=== PATIENT | male | born 1945 | race Caucasian/White ===

== ENCOUNTER 2020-06-01 | Outpatient (REF) | payer MEDICARE, OTHER, SELFPAY | END 2020-06-01 00:01 | disposition home or self-care (01) | LOC: HO.VC | PROVIDERS: Visit Provider Internal Medicine | DX: Z23 Encounter for immunization (principal) | CPT/HCPCS: 0011A ==

== ENCOUNTER 2020-06-28 | Outpatient (REF) | payer MEDICARE, OTHER, SELFPAY | END 2020-06-28 00:01 | disposition home or self-care (01) | LOC: HO.VC | PROVIDERS: Visit Provider Internal Medicine | DX: Z23 Encounter for immunization (principal) | CPT/HCPCS: 0012A ==

== ENCOUNTER 2020-06-28 09:19 | Outpatient (REF) | payer MEDICARE, OTHER, SELFPAY ==
--- NOTE | ~2020-06-28 | XR_ITS ---
EXAMINATION: XR HIP, LEFT CLINICAL INFORMATION: Pain COMPARISON: CT of the abdomen and pelvis February 2007 TECHNIQUE: Two views of the left hip. FINDINGS: Bone alignment is normal. No fracture or dislocation is seen. There is arthritis at the left hip joint with joint space narrowing and osteophyte formation. There are several small sclerotic densities project over the left iliac bone superior to the acetabulum. These appear new or increased compared to previous abdominal and pelvic CT scan February 2007 Soft tissues are unremarkable. XR/XR hip LT min 2V IMPRESSION: Arthritis. Several small nonspecific sclerotic densities in the left iliac bone superior to the acetabulum.
== END 2020-06-28 09:20 | disposition home or self-care (01) ==
LOC: HO.XRAY 09:19
PROVIDERS: PCP Internal Medicine; Visit Provider Internal Medicine
DX: M25.552 Pain in left hip (principal)
CPT/HCPCS: 73502

== ENCOUNTER 2020-08-31 10:27 | Outpatient (REF) | payer MEDICARE, OTHER, SELFPAY ==
[2020-08-31 13:08] LABS: Estimated Average Glucose 157 mg/dL; Hemoglobin A1c % 7.1 %
[2020-08-31 13:15] LABS: Alanine Aminotransferase 32 U/L (0-40); Albumin Level 4.1 g/dL (3.5-5.0); Alkaline Phosphatase 69 U/L (39-117); Anion Gap 10 (12-20); Aspartate Amino Transferase 31 U/L (5-37); Bilirubin Total 1.2 mg/dL (0.0-1.0); Blood Urea Nitrogen 22 mg/dL (9-16); Calcium 9.2 mg/dL (8.4-10.2); Carbon Dioxide 28 mmol/L (22-29); Chloride 104 mmol/L (96-108); Cholesterol 166 mg/dL; Estimated Glomerular Filt Rate > 60; Glucose Random 130 mg/dL (60-115); HDL Cholesterol 78 mg/dL; LDL Cholesterol Calculated 77 mg/dl; Potassium 4.4 mmol/L (3.3-5.1); Sodium 138 mmol/L (135-145); Total Protein 6.7 g/dL (6.5-8.0); Triglycerides 56 mg/dL
[2020-08-31 13:25] LABS: Creatinine Urine 119.95 mg/dL; Microalbum/Creatinine Ratio Ur 15.8 ug/mg cr
[2020-08-31 13:38] LABS: Free T4 (Free Thyroxine) 0.94 ng/dL (0.71-1.85); Thyroid Stimulating Hormone 0.85 uIU/mL (0.32-4.0); Vitamin D 25-OH Total 46.7 ng/mL (>30)
[2020-08-31 13:47] LABS: Erythrocyte Sedimentation Rate 9 MM/HR (0-15)
[2020-08-31 13:56] LABS: Folate 18.8 ng/mL (> or = 4.0); Vitamin B12 460 pg/mL (200-900)
== END 2020-08-31 10:28 | disposition home or self-care (01) ==
LOC: HO.10HDL 10:27
PROVIDERS: Visit Provider Internal Medicine
DX: E78.00 Pure hypercholesterolemia, unspecified (principal); K21.9 Gastro-esophageal reflux disease without esophagitis; M35.3 Polymyalgia rheumatica; E11.65 Type 2 diabetes mellitus with hyperglycemia; Z79.4 Long term (current) use of insulin
CPT/HCPCS: 36415; 80053; 80061; 82043; 82306; 82607; 82746; 83036; 84439; 84443; 85652

== ENCOUNTER 2020-11-24 10:46 | Outpatient (REF) | payer MEDICARE, OTHER, SELFPAY ==
--- NOTE | ~2020-11-24 | MM_ITS ---
EXAMINATION: BONE DENSITOMETRY CLINICAL INDICATION: Other specified disorders of bone density and structure. COMPARISON: This is the patient's baseline examination. TECHNIQUE: Using a [employer] DXA System (software version: 13.1) manufactured by [employer], dual-energy x-ray absorptiometry was performed of the lumbar spine and left hip. The images are of good technical quality. Summary results are attached. FINDINGS: AP SPINE L1-L4: BMD 1.438 g/cm2, Z-score 2.3, T-score 1.8, normal. LEFT FEMUR, NECK: BMD 0.812 g/cm2, Z-score -0.6, T-score -2.0, osteopenia. LEFT FEMUR, TOTAL: BMD 0.829 g/cm2, Z-score -1.0, T-score -1.9, osteopenia. IDENTIFIED RISK FACTORS: Height loss, secondary osteoporosis, glucocorticoids (chronic). HISTORY OF FRACTURE: None listed. MEDICATIONS: Calcium supplements or multivitamin, vitamin D. MM/XR DEXA axial skeleton IMPRESSION: 1. DIAGNOSIS: Osteopenia based on the lowest T-score value of -2.0 in the femoral neck applying World Health Organization criteria. 2. 10-YEAR FRACTURE RISK PREDICTION, FRAX: Major osteoporotic fracture (clinical spine, forearm, hip or shoulder) 12.3%. Hip fracture 4.8%. 3. Treatment Recommendations: NOF guidelines recommend consideration for treatment in postmenopausal women and men age 50 and older presenting with the following: -A hip or vertebral (clinical or morphometric) fracture. -T-score less than or equal to -2.5 at the femoral neck or spine after appropriate evaluation to exclude secondary causes. -Low bone mass at the hip or spine and a 10-year fracture probability by FRAX of greater than or equal to 3% for hip fracture or greater than or equal to 20% for major osteoporotic fracture based on the [place] adapted WHO algorithm. 4. Other Recommendations: All treatment decisions require clinical judgment and consideration of individual patient factors, including patient preferences, comorbidities, previous drug use, risk factors not captured in the FRAX model (e.g. frailty, falls, vitamin D deficiency, increased bone turnover, interval significant decline in bone density) and possible under or overestimation of fracture risk by FRAX. Additional medical evaluation for secondary cause of low bone mineral density may be appropriate. FUTURE SCAN RECOMMENDATION: People with diagnosed cases of osteoporosis or at high risk for fracture should have regular bone mineral density tests. For patients eligible for Medicare, routine testing is allowed once every 2 years. The testing frequency can be increased to one year for patients who have rapidly progressing disease, those who are receiving or discontinuing medical therapy to restore bone mass, or have additional risk factors.
== END 2020-11-24 10:47 | disposition home or self-care (01) ==
LOC: HO.MAMMO 10:46
PROVIDERS: Visit Provider Internal Medicine
DX: Z13.820 Encounter for screening for osteoporosis (principal); M85.80 Other specified disorders of bone density and structure, unspecified site; R29.890 Loss of height; E27.49 Other adrenocortical insufficiency; Z79.899 Other long term (current) drug therapy
CPT/HCPCS: 77080

== ENCOUNTER 2021-07-18 12:19 | Outpatient (REF) | payer MEDICARE, OTHER, SELFPAY ==
--- NOTE | ~2021-07-18 | XR_ITS ---
EXAMINATION: XR FINGER, RIGHT CLINICAL INFORMATION: Stiffness the right fourth digit. Pain. No history of injury. COMPARISON: None TECHNIQUE: 3 views of the right fourth finger. FINDINGS: No fracture. No dislocation. No focal bone lesion or abnormal periosteal reaction. Joint spaces are normal. No soft tissue abnormality. XR/XR finger RT min 2V IMPRESSION: Normal right fourth finger.
== END 2021-07-18 12:20 | disposition home or self-care (01) ==
LOC: HO.XRAY 12:19
PROVIDERS: PCP Internal Medicine; Visit Provider Internal Medicine
DX: M79.644 Pain in right finger(s) (principal)
CPT/HCPCS: 73140

== ENCOUNTER 2021-10-04 10:11 | Outpatient (REF) | payer MEDICARE, OTHER, SELFPAY ==
[2021-10-04 10:53] LABS: MANUAL DIFF FLAG NO
[2021-10-04 10:57] LABS: Basophils Percent Auto 0.5 % (0-2); Eosinophils Absolute Auto 0.1 X10*3/uL (0.0-0.4); Eosinophils Percent Auto 1.5 % (0-4); Hematocrit 41.8 % (42.0-52.0); Hemoglobin 13.9 g/dl (14.0-18.0); Imm Gran Abs Auto 0.02 X10*3/uL (0.00-0.03); Imm Gran Pct Auto 0.3 % (0.0-0.4); Lymphocytes Percent Auto 32.9 % (20-40); Mean Corpuscular HGB Conc 33.3 g/dl (31.0-36.0); Mean Corpuscular Hemoglobin 31.6 pg (27.0-33.0); Mean Platelet Volume 10.2 fL (9.4-12.4); Monocytes Absolute Auto 0.5 X10*3/uL (0.1-1.2); Monocytes Percent Auto 8.7 % (2-11); Neutrophils Absolute Auto 3.4 x10*3/uL (2.0-8.3); Neutrophils Percent Auto 56.1 % (45-73); Platelet Count 173 X10*3/uL (160-400); Red Cell Distribution Width 12.9 % (11.0-16.0); White Blood Count 6.1 X10*3/uL (4.8-10.8)
[2021-10-04 11:10] LABS: Alanine Aminotransferase 36 U/L (0-40); Alkaline Phosphatase 54 U/L (39-117); Anion Gap 13 (12-20); Aspartate Amino Transferase 34 U/L (5-37); Bilirubin Total 1.1 mg/dL (0.0-1.0); Blood Urea Nitrogen 30 mg/dL (9-16); Calcium 9.5 mg/dL (8.4-10.2); Carbon Dioxide 28 mmol/L (22-29); Chloride 103 mmol/L (96-108); Cholesterol 178 mg/dL; Estimated Glomerular Filt Rate > 60; Glucose Random 134 mg/dL (60-115); HDL Cholesterol 77 mg/dL; LDL Cholesterol Calculated 92 mg/dl; Potassium 4.6 mmol/L (3.3-5.1); Sodium 139 mmol/L (135-145); Total Protein 6.7 g/dL (6.5-8.0); Triglycerides 45 mg/dL
[2021-10-04 11:15] LABS: Estimated Average Glucose 171 mg/dL; Hemoglobin A1c % 7.6 %
[2021-10-04 11:26] LABS: Creatinine Urine 131.17 mg/dL; Microalbum/Creatinine Ratio Ur 11.4 ug/mg cr
[2021-10-04 11:31] LABS: B Type Natriuretic Peptide 33 pg/mL (<100)
[2021-10-04 11:32] LABS: Free T4 (Free Thyroxine) 0.88 ng/dL (0.71-1.85); Thyroid Stimulating Hormone 0.84 uIU/mL (0.32-4.0)
[2021-10-04 11:42] LABS: Folate > 20.0 ng/mL (> or = 4.0); Vitamin B12 525 pg/mL (200-900)
[2021-10-04 11:49] LABS: Erythrocyte Sedimentation Rate 10 MM/HR (0-15)
== END 2021-10-04 10:12 | disposition home or self-care (01) ==
LOC: HO.10HDL 10:11
PROVIDERS: Visit Provider Internal Medicine
DX: E11.65 Type 2 diabetes mellitus with hyperglycemia (principal); I10 Essential (primary) hypertension; E78.00 Pure hypercholesterolemia, unspecified; M35.3 Polymyalgia rheumatica; Z79.4 Long term (current) use of insulin; M81.0 Age-related osteoporosis without current pathological fracture
CPT/HCPCS: 36415; 80053; 80061; 82043; 82306; 82607; 82746; 83036; 83880; 84439; 84443; 85025; 85652

== ENCOUNTER 2022-10-10 09:59 | Outpatient (REF) | payer MEDICARE, OTHER, SELFPAY ==
[2022-10-10 13:16] LABS: MANUAL DIFF FLAG NO
[2022-10-10 13:29] LABS: Basophils Percent Auto 0.5 % (0-2); Eosinophils Absolute Auto 0.1 X10*3/uL (0.0-0.4); Eosinophils Percent Auto 1.4 % (0-4); Hematocrit 42.1 % (42.0-52.0); Hemoglobin 13.9 g/dl (14.0-18.0); Imm Gran Abs Auto 0.03 X10*3/uL (0.00-0.03); Imm Gran Pct Auto 0.5 % (0.0-0.4); Lymphocytes Percent Auto 30.7 % (20-40); Mean Corpuscular Hemoglobin 31.3 pg (27.0-33.0); Mean Corpuscular Volume 94.8 fL (80.0-98.0); Mean Platelet Volume 10.3 fL (9.4-12.4); Monocytes Absolute Auto 0.5 X10*3/uL (0.1-1.2); Monocytes Percent Auto 8.4 % (2-11); Neutrophils Absolute Auto 3.8 x10*3/uL (2.0-8.3); Neutrophils Percent Auto 58.5 % (45-73); Platelet Count 170 X10*3/uL (160-400); Red Blood Count 4.44 X10*6/uL (4.60-5.80); Red Cell Distribution Width 12.4 % (11.0-16.0); White Blood Count 6.5 X10*3/uL (4.8-10.8)
[2022-10-10 13:33] LABS: Estimated Average Glucose 163 mg/dL; Hemoglobin A1c % 7.3 %
[2022-10-10 13:44] LABS: Alanine Aminotransferase 35 U/L (0-40); Albumin Level 4.1 g/dL (3.5-5.0); Alkaline Phosphatase 55 U/L (39-117); Anion Gap 11 (12-20); Aspartate Amino Transferase 33 U/L (5-37); Bilirubin Total 1.1 mg/dL (0.0-1.0); Blood Urea Nitrogen 24 mg/dL (9-16); C Reactive Protein < 0.10 mg/dL (< or = 0.50); Calcium 10.2 mg/dL (8.4-10.2); Carbon Dioxide 28 mmol/L (22-29); Chloride 102 mmol/L (96-108); Cholesterol 177 mg/dL; Estimated Glomerular Filt Rate > 60; Glucose Random 158 mg/dL (60-115); HDL Cholesterol 72 mg/dL; LDL Cholesterol Calculated 92 mg/dl; Potassium 4.8 mmol/L (3.3-5.1); Sodium 136 mmol/L (135-145); Total Protein 7.3 g/dL (6.5-8.0); Triglycerides 66 mg/dL
[2022-10-10 13:53] LABS: Creatinine Urine 76.59 mg/dL; Microalbum/Creatinine Ratio Ur 7.8 ug/mg cr
[2022-10-10 13:58] LABS: Free T4 (Free Thyroxine) 0.96 ng/dL (0.71-1.85); Thyroid Stimulating Hormone 1.18 uIU/mL (0.32-4.0); Vitamin D 25-OH Total 66.5 ng/mL (>30)
[2022-10-10 14:09] LABS: Folate 17.1 ng/mL (> or = 4.0); Vitamin B12 538 pg/mL (200-900)
[2022-10-10 14:14] LABS: Erythrocyte Sedimentation Rate 10 MM/HR (0-15)
== END 2022-10-10 10:00 | disposition home or self-care (01) ==
LOC: HO.10HDL 09:59
PROVIDERS: Visit Provider Internal Medicine
DX: M35.3 Polymyalgia rheumatica (principal); E11.65 Type 2 diabetes mellitus with hyperglycemia; E78.00 Pure hypercholesterolemia, unspecified; M85.80 Other specified disorders of bone density and structure, unspecified site; Z79.4 Long term (current) use of insulin
CPT/HCPCS: 36415; 80053; 80061; 82043; 82306; 82607; 82746; 83036; 84439; 84443; 85025; 85652; 86140

== ENCOUNTER 2022-11-07 10:51 | Outpatient (AMB) | payer MEDICARE, OTHER, SELFPAY ==
[2022-11-07 10:53] VITALS: BP 130/72; PULSE 84; O2SAT 97; BMI 23.6
--- NOTE | 2022-11-07 10:53 | A.OFFPC_ITS ---
Vital Signs 11/07/22 10:53 Height 6 ft 1 in Weight 179 lb BMI 23.6 BP 130/72 Blood Pressure Location Lt brachial Position Sitting Pulse 84 Pulse Source Pulse Oximeter Temp Source Skin Pulse Oximetry (%) 97 Oxygen Delivery Method Room Air Intake Visit Reasons: Ear Irrigation Dental Floss Packer Required: No Allergies meloxicam Allergy (Unknown, Verified 11/07/22 11:14) Unknown simvastatin Allergy (Unknown, Verified 11/07/22 11:14) Unknown Medication List - Last Reconciled 11/07/22 by TANK Sims amlodipine 10 mg PO DAILY atorvastatin 20 mg PO DAILY cholecalciferol (vitamin D3) 25 mcg PO DAILY hydrochlorothiazide 12.5 mg PO DAILY insulin aspart U-100 (Novolog FlexPen U-100 Insulin aspart) 5 units subcut TID insulin degludec (Tresiba FlexTouch U-100 insulin) 15 units subcut DAILY lisinopril 40 mg PO DAILY omeprazole 20 mg PO DAILY prednisone 2 mg (2 x 1 mg) PO DAILY sildenafil 100 mg PO DAILY PRN Tobacco use date assessed: 11/07/22 Fall risk assessment: No Falls in past year Last assessed Fall Risk: 11/07/22 HPI Ear Irrigation HPI Details Patient is a 77-year-old male who presents today for bilateral ear irrigation. Patient of Dr. Barrios. Medical history significant for hypertension, GERD, hypercholesterolemia, diabetes type 2 among others. Patient reports that he did use Debrox in both of his ears for 4 days prior to coming in today. He reports in the past he did go to ENT on yearly basis for cerumen removal. Reports chronic ringing sensation his right ear. Denies ears pain. [facility] Medical History Carpal tunnel syndrome Diabetic neuropathy Erectile dysfunction GERD (gastroesophageal reflux disease) Hypercholesterolemia Hypertension Osteopenia Polymyalgia rheumatica Thrombocytopenia Type 2 diabetes mellitus with hyperglycemia Surgical History History of carpal tunnel release Family History Father Hypertension CVD (cardiovascular disease) Mother Cancer Social History Housing: House Alcohol intake: current Alcohol intake frequency: a few times a week Alcohol type: beer and wine Patient Tobacco Use Status: Former Tobacco user Tobacco use type: Cigarette Years Smoked: quit 2005 e-Cigarette/Vaping Use: Never Used Second Hand Smoke Exposure: No service: No Current occupational status: retired Cognitive needs: No Hearing needs: No Vision needs: Yes Questionnaire Thrive Questionnaire Date Thrive assessed: 07/06/22 AUDIT C Alcohol Use Questionnaire (AUDIT-C) 1. How often do you have a drink containing alcohol?: 4 or more times a week 2. How many drinks containing alcohol do you have on a typical day when you are drinking?: 1 or 2 3. How often do you have six or more drinks on one occasion?: Never Total Score: 4 Score Reviewed/Action Taken: No GWYN-7 AMB Questionnaire GWYN-7 Date WGYN - 7 assessed: 07/06/22 Source: Developed by Drs. Sunday Delgado, Marilyn Kennedy, Marco Caldwell and colleagues, with an educational wendie from [employer]. Review of Systems Const Denies body aches, Denies chills, Denies fever(s) and Denies headache(s) ENT Details: Cerumen in ears Denies dizziness, Denies otalgia, Denies headache(s), Denies nasal discharge, Denies sinus pain and Denies sore throat Card Denies chest pain, Denies lightheadedness and Denies dyspnea Resp Denies cough and Denies dyspnea GI Denies abdominal pain Denies dysuria Musc Denies myalgias Skin/Breast Denies rash Neuro Denies dizziness and Denies headache(s) Physical exam (Primary Care) Vital Signs: Last Vital Signs Pulse 84 11/07/22 10:53 BP 130/72 11/07/22 10:53 Pulse Ox 97 11/07/22 10:53 Oxygen Delivery Method Room Air 11/07/22 10:53 BMI result Body Mass Index 23.6 Tobacco/Smoking Status: Tobacco use Status Tobacco use date assessed 11/07/22 11/07/22 10:54 Patient Tobacco Use Status Former Tobacco user 11/07/22 10:54 Tobacco use type Cigarette 11/07/22 10:54 e-Cigarette/Vaping Use Never Used 11/07/22 10:54 Thrive Assessment: Date of Thrive Assessment Date Thrive assessed 07/06/22 11/07/22 10:54 Const General: cooperative and no acute distress Orientation/consciousness: patient oriented x3 HENWY Other: Bilateral TM obstructed by cerumen Status post left ear lavage left TM normal Unsuccessful ear lavage right ear, right TM obstructed by cerumen, unable to visualize Head: Yes normocephalic and Yes atraumatic Throat: Yes posterior oropharynx normal Eyes General: appearance normal, both eyes and all related structures Neck Neck: Yes normal visual inspection and Yes full ROM Resp Effort & Inspection: normal respiratory effort and able to speak in complete sentences Auscultation: clear to auscultation bilaterally, no crackles, no rales, no rhonchi and no wheezes Cardio Rate: regular rate Rhythm: regular rhythm Heart sounds: S1 normal heart sound present and S2 normal heart sound present GI Auscultation: normal bowel sounds Skin General skin exam: no rashes or lesions noted Neuro General: patient oriented x3 Gait exam (Neuro): Normal gait present Extrem General: Yes full ROM Office Procedures Cerumen Removal From which ear canal was the cerumen removed: bilateral Removal: irrigation and otoscope w/curette Notes: patient tolerated procedure well, no complications and ear canal clear (left ) 22072-[id number] Irrigation/Lavage Assessment and Plan Assessment & Plan (1) Impacted cerumen, right ear: Code(s): H61.21 - Impacted cerumen, right ear Plan: Unsuccessful ear lavage right ear, right TM obstructed by cerumen, unable to visualize Will refer to ENT for an evaluation and treatment Patient agreed with the plan Plan Left ear canal cerumen removed, patient tolerated well, left TM normal Orders: Referrals Ear/Nose/Throat Referral H61.21 - Impacted cerumen, right ear Coding Level of Care Code Est Pt Level 2 (37457) Diagnoses Impacted cerumen, right ear H61.21 CPT Codes Office Procedure - CPT: 75694-Mvb Irrigation/Lavage ([id number])
== END 2022-11-07 11:56 | disposition home or self-care (01) ==
PROVIDERS: PCP Internal Medicine; Visit Provider Nurse Practitioner Family
DX: H61.22 Impacted cerumen, left ear (principal); H61.23 Impacted cerumen, bilateral
CPT/HCPCS: 69210; 99212

== ENCOUNTER 2023-01-29 11:33 | Outpatient (AMB) | payer MEDICARE, OTHER, SELFPAY ==
[2023-01-29 12:04] VITALS: BP 134/70; PULSE 67; O2SAT 97; BMI 23.6
--- NOTE | 2023-01-29 12:04 | A.OFFPC_ITS ---
Vital Signs 01/29/23 12:04 Height 6 ft 1 in Weight 179 lb BMI 23.6 BP 134/70 Blood Pressure Location Lt brachial Position Sitting Pulse 67 Pulse Source Pulse Oximeter Pulse Oximetry (%) 97 Oxygen Delivery Method Room Air Intake Visit Reasons: 3 Month F/UP Allergies meloxicam Allergy (Unknown, Verified 01/29/23 12:05) Unknown simvastatin Allergy (Unknown, Verified 01/29/23 12:05) Unknown Tobacco use date assessed: 11/07/22 Fall risk assessment: No Falls in past year Last assessed Fall Risk: 01/29/23 Dental Screening Dental Screen Date: 01/29/23 Did you have a dental visit in the last 12 months?: Yes Did you have a dental problem in the last 6 months where you did not have access to dental care?: No Was dental information given to patient?: Patient has dentist HPI 3 Month F/UP HPI Details 77-year-old male with diabetes mellitus controlled hypercholesterolemia GERD hypertension polymyalgia rheumatica coming in for follow-up. Last seen in September 2022. Patient's colonoscopy is up-to-date patient follows up with endocrinology has the Dexcom blood sugars on NovoLog and Tresiba. fell from the cart recently and states balance issues when closing eye- plan to change bathroom [facility] Medical History Carpal tunnel syndrome Diabetic neuropathy Erectile dysfunction GERD (gastroesophageal reflux disease) Hypercholesterolemia Hypertension Osteopenia Polymyalgia rheumatica Thrombocytopenia Type 2 diabetes mellitus with hyperglycemia Surgical History History of carpal tunnel release Family History Father Hypertension CVD (cardiovascular disease) Mother Cancer Social History Housing: House Alcohol intake: current Alcohol intake frequency: a few times a week Alcohol type: beer and wine Patient Tobacco Use Status: Former Tobacco user Tobacco use type: Cigarette Years Smoked: quit 2005 e-Cigarette/Vaping Use: Never Used Second Hand Smoke Exposure: No service: No Current occupational status: retired Cognitive needs: No Hearing needs: No Vision needs: Yes Questionnaire PHQ-9 Over the last 2 weeks, how often have you been bothered by any of the following problems? 1. Little interest or pleasure in doing things: not at all 2. Feeling down, depressed, or hopeless: not at all 3. Trouble falling or staying asleep, or sleeping too much: several days 4. Feeling tired or having little energy: not at all 5. Poor appetite or overeating: several days 6. Feeling bad about yourself - or that you are a failure or have let yourself or your family down: not at all 7. Trouble concentrating on things, such as reading the newspaper or watching television: not at all 8. Moving or speaking so slowly that other people could have noticed. Or the opposite - being so fidgety or restless that you have been moving around a lot more than usual: not at all 9. Thoughts that you would be better off or of hurting yourself in some way: not at all Total score: 2 Source: Developed by Drs. Sunday Delgado, Marilyn Kennedy, Marco Caldwell and colleagues, with an educational wendie from [employer]. Thrive Questionnaire Date Thrive assessed: 07/06/22 AUDIT C Alcohol Use Questionnaire (AUDIT-C) 1. How often do you have a drink containing alcohol?: 4 or more times a week 2. How many drinks containing alcohol do you have on a typical day when you are drinking?: 1 or 2 3. How often do you have six or more drinks on one occasion?: Never Total Score: 4 Score Reviewed/Action Taken: No GWYN-7 AMB Questionnaire GWYN-7 Date GWYN - 7 assessed: 07/06/22 Source: Developed by Drs. Sunday Delgado, Marilyn Kennedy, Marco Caldwell and colleagues, with an educational wendie from [employer]. Physical exam (Primary Care) Vital Signs: Last Vital Signs Pulse 67 01/29/23 12:04 BP 134/70 01/29/23 12:04 Pulse Ox 97 01/29/23 12:04 Oxygen Delivery Method Room Air 01/29/23 12:04 BMI result Body Mass Index 23.6 Tobacco/Smoking Status: Tobacco use Status Tobacco use date assessed 11/07/22 01/29/23 12:07 Patient Tobacco Use Status Former Tobacco user 01/29/23 12:07 Tobacco use type Cigarette 01/29/23 12:07 e-Cigarette/Vaping Use Never Used 01/29/23 12:07 PHQ-9: PHQ-9 Score PHQ-9: Total score 2 01/29/23 12:20 Thrive Assessment: Date of Thrive Assessment Date Thrive assessed 07/06/22 01/29/23 12:07 Const General: alert; No acute distress Eyes Conjunctivae: conjunctivae normal Resp Auscultation: clear to auscultation bilaterally Cardio Rate: regular rate Rhythm: regular rhythm GI Inspection: Yes normal to inspection Extrem General: Yes normal to inspection and No edema Office Procedures Flu Questionnaire Does the patient have a severe egg allergy?: No Does the patient have severe life threatening allergies?: No Does the patient have a fever or illness today?: No Has the patient ever had Guillain-[place] Syndrome?: No Has the patient ever had any past reaction to a flu shot?: No Results AMB Hemoglobin A1c AMB Hemoglobin A1c 7.5 % Last Edit by Adri Garcia CMA on 01/29/23 12 :28 Immunizations flu vacc [id number] 6mos up(PF) 60 mcg(15 mcgx4)/0.5 mL IM syringe Performing Provider: Radha Barrios MD Performing Location: [facility] Administered by: Adri Garcia CMA on 01/29/23 12:20 Dose Route Admin Location Dispensed Lot Number Expiration Date NDC Flask Maker 0.5 mL IM Left Deltoid 0.5 mL [id number] 10/27/23 [id number] [employer] VIS Given Date VIS Provided VIS Publication Date 01/29/23 Single Vaccine 20 Eligibility Eligibility Date Funding Source Not [facility] Eligible 01/29/23 Private Assessment and Plan Assessment & Plan (1) Type 2 diabetes mellitus with hyperglycemia: Comment: [facility] Dr. Zarco 07/2021 Code(s): E11.65 - Type 2 diabetes mellitus with hyperglycemia Qualifiers: Diabetes mellitus mcfp insulin use: with mcfp use Qualified Code(s): E11.65 - Type 2 diabetes mellitus with hyperglycemia; Z79.4 - technician terminal and repeater (current) use of insulin Plan: Decrease the amount of carbohydrate intake, pasta, bread, rice and potatoes are all sugar and that is aside from all the sweet stuff, remember that fruits are good but they are Sweet also. Hemoglobin A1c goal of less than 7.0. Patient sees Endocrinology on Tresiba as well as short acting insulin but does have prednisone for the polymyalgia (2) Hypercholesterolemia: Code(s): E78.00 - Pure hypercholesterolemia, unspecified Plan: Avoid fried foods, chicken skin, eggs, butter margarine, pastries and meat. Be it pork or beef they have a lot of cholesterol LDL goal of less than 100 and triglyceride of less than 150 patient is on atorvastatin 20 mg once a day (3) GERD (gastroesophageal reflux disease): Code(s): K21.9 - Gastro-esophageal reflux disease without esophagitis Qualifiers: Esophagitis presence: without esophagitis Qualified Code(s): K21.9 - Gastro-esophageal reflux disease without esophagitis Plan: Avoid the foods that causes that usually spicy foods, tomato products, juices, coffee, soda and foods that your sensitive to. After eating do not lie down, allow 3-4 hours before in lie down. And keep the head of bed above 30 degrees to avoid the acid from going up. (4) Hypertension: Code(s): I10 - Essential (primary) hypertension Qualifiers: Hypertension type: essential hypertension Qualified Code(s): I10 - Essential (primary) hypertension Plan: Continue with blood pressure medication. Decrease salt intake and exercise patient on amlodipine 10 mg once a day hydrochlorothiazide 12.5 mg once a day and lisinopril 40 mg once a day (5) Polymyalgia rheumatica: Comment: 10/2010 Code(s): M35.3 - Polymyalgia rheumatica Plan: On prednisone 2 mg once a day Orders: Orders AMB Hemoglobin A1c Today Z13.9 - Encounter for screening, unspecified Influenza [id number] Immunization Today Z23 - Encounter for immunization Medications: Refilled sildenafil administer 30 minutes to 4 hours before activity 100 mg PO DAILY PRN 30 tabs 3RF sexual activity N52.9 - Male erectile dysfunction, unspecified Coding Level of Care Code Est Pt Level 4 (70272) Diagnoses Type 2 diabetes mellitus with hyperglycemia, with long-term current use of insulin E11.65; Z79.4 Diabetes mellitus termite control servicer insulin use: with mcfp use Hypercholesterolemia E78.00 Gastroesophageal reflux disease without esophagitis K21.9 Esophagitis presence: without esophagitis Essential hypertension I10 Hypertension type: essential hypertension Polymyalgia rheumatica M35.3
== END 2023-01-29 12:37 | disposition home or self-care (01) ==
PROVIDERS: PCP Internal Medicine; Visit Provider Internal Medicine
DX: E11.65 Type 2 diabetes mellitus with hyperglycemia (principal); Z79.4 Long term (current) use of insulin; M35.3 Polymyalgia rheumatica; Z23 Encounter for immunization; E78.00 Pure hypercholesterolemia, unspecified; K21.9 Gastro-esophageal reflux disease without esophagitis; I10 Essential (primary) hypertension
CPT/HCPCS: 83036; 90471; 90686; 99214

== ENCOUNTER 2023-05-16 11:47 | Outpatient (AMB) | payer MEDICARE, OTHER, MEDICAID, SELFPAY ==
[2023-05-16 11:50] VITALS: BP 142/68; PULSE 79; O2SAT 98; BMI 24.7
--- NOTE | 2023-05-16 11:50 | A.OFFPC_ITS ---
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 Required: No Allergies meloxicam Allergy (Unknown, Verified 05/16/23 11:50) Unknown simvastatin Allergy (Unknown, Verified 05/16/23 11:50) Unknown Medication List - Last Reconciled 05/16/23 by Radha Barrios MD amlodipine 10 mg PO DAILY atorvastatin 20 mg PO DAILY cholecalciferol (vitamin D3) 25 mcg PO DAILY hydrochlorothiazide 12.5 mg PO DAILY insulin aspart U-100 (Novolog FlexPen U-100 Insulin aspart) 5 units subcut TID insulin degludec (Tresiba FlexTouch U-100 insulin) 15 units subcut DAILY lisinopril 40 mg PO DAILY omeprazole 20 mg PO DAILY prednisone 2 mg (2 x 1 mg) PO DAILY tadalafil 10 mg PO Q OTHER DAY PRN Tobacco use date assessed: 05/16/23 Dental Screening Dental Screen Date: 05/16/23 Did you have a dental visit in the last 12 months?: Yes Did you have a dental problem in the last 6 months where you did not have access to dental care?: No Was dental information given to patient?: Patient has dentist HPI DM HPI Details 77-year-old male with history of diabete s mellitus hypercholesterolemia GERD hypertension polymyalgia rheumatica last seen in January 2023. Patient follows up with endocrinology PMR diagnosis on prednisone. Uses continuous glucose monitor sees Dr. Delgado concern about hypoglycemia advised decreasing Tresiba to prevent hypoglycemia. [facility]LY [facility], [facility] Medical History Carpal tunnel syndrome Diabetic neuropathy Erectile dysfunction GERD (gastroesophageal reflux disease) Hypercholesterolemia Hypertension Osteopenia Polymyalgia rheumatica Thrombocytopenia Type 2 diabetes mellitus with hyperglycemia Surgical History History of carpal tunnel release Family History Father Hypertension CVD (cardiovascular disease) Mother Cancer Social History Housing: House Alcohol intake: current Alcohol intake frequency: a few times a week Alcohol type: beer and wine Patient Tobacco Use Status: Former Tobacco user Tobacco use type: Cigarette Years Smoked: quit 2005 e-Cigarette/Vaping Use: Never Used Second Hand Smoke Exposure: No service: No Current occupational status: retired Cognitive needs: No Hearing needs: No Vision needs: Yes Questionnaire Thrive Questionnaire Date Thrive assessed: 07/06/22 AUDIT C Alcohol Use Questionnaire (AUDIT-C) 1. How often do you have a drink containing alcohol?: 4 or more times a week 2. How many drinks containing alcohol do you have on a typical day when you are drinking?: 1 or 2 3. How often do you have six or more drinks on one occasion?: Never Total Score: 4 Score Reviewed/Action Taken: No GWYN-7 AMB Questionnaire GWYN-7 Date GWYN - 7 assessed: 05/16/23 Source: Developed by Drs. Sunday Delgado, Marilyn Kennedy, Marco Caldwell and colleagues, with an educational wendie from [employer]. Physical exam (Primary Care) Vital Signs: Last Vital Signs Pulse 79 05/16/23 11:50 BP 142/68 H 05/16/23 11:50 Pulse Ox 98 05/16/23 11:50 Oxygen Delivery Method Room Air 05/16/23 11:50 BMI result Body Mass Index 24.7 Tobacco/Smoking Status: Tobacco use Status Tobacco use date assessed 05/16/23 05/16/23 11:51 Patient Tobacco Use Status Former Tobacco user 05/16/23 11:51 Tobacco use type Cigarette 05/16/23 11:51 e-Cigarette/Vaping Use Never Used 05/16/23 11:51 Thrive Assessment: Date of Thrive Assessment Date Thrive assessed 07/06/22 05/16/23 11:51 Const General: alert; No acute distress Eyes Conjunctivae: conjunctivae normal Resp Auscultation: clear to auscultation bilaterally Cardio Rate: regular rate Rhythm: regular rhythm GI Inspection: Yes normal to inspection Extrem General: Yes normal to inspection and No edema Results AMB Hemoglobin A1c AMB Hemoglobin A1c 8.1 % Last Edit by ISMAEL Burnett on 05/16/23 12:05 Results Reviewed Results Reviewed: Laboratory Last Values Hgb A1c (Clinic) 8.1 % (4.0-6.0) H 05/16/23 11:52 Assessment and Plan Assessment & Plan (1) Type 2 diabetes mellitus with hyperglycemia: Comment: [facility] Dr. Zarco 07/2021 Code(s): E11.65 - Type 2 diabetes mellitus with hyperglycemia Qualifiers: Diabetes mellitus halfway insulin use: with halfway use Qualified Code(s): E11.65 - Type 2 diabetes mellitus with hyperglycemia; Z79.4 - roasterman (current) use of insulin Plan: Decrease the amount of carbohydrate intake, pasta, bread, rice and potatoes are all sugar and that is aside from all the sweet stuff, remember that fruits are good but they are Sweet also. Hemoglobin A1c goal of less than 7.0. Patient does see endocrinology and because of the hypoglycemia episodes advised to decrease insulin dose. Aware of indiscriminate eating. knows to change (2) Hypertension: Code(s): I10 - Essential (primary) hypertension Qualifiers: Hypertension type: essential hypertension Qualified Code(s): I10 - Essential (primary) hypertension Plan: Continue with blood pressure medication. Decrease salt intake and exercise takes lisinopril amlodipine and hydrochlorothiazide. elevated this time and would like to loose weight first (3) GERD (gastroesophageal reflux disease): Code(s): K21.9 - Gastro-esophageal reflux disease without esophagitis Qualifiers: Esophagitis presence: without esophagitis Qualified Code(s): K21.9 - Gastro-esophageal reflux disease without esophagitis Plan: Avoid the foods that causes that usually spicy foods, tomato products, juices, coffee, soda and foods that your sensitive to. After eating do not lie down, allow 3-4 hours before in lie down. And keep the head of bed above 30 degrees to avoid the acid from going up. (4) Hypercholesterolemia: Code(s): E78.00 - Pure hypercholesterolemia, unspecified Plan: Avoid fried foods, chicken skin, eggs, butter margarine, pastries and meat. Be it pork or beef they have a lot of cholesterol September 2022 last blood work LDL goal of less than 100 and triglyceride of less than 150 patient takes atorvastatin (5) Polymyalgia rheumatica: Comment: 10/2010 Code(s): M35.3 - Polymyalgia rheumatica Plan: Patient on steroids. (6) Constipation: Code(s): K59.00 - Constipation, unspecified Plan: Three rules for constipation 1. Diet need to have a high fiber diet less of meat 2. Increase oral fluids 3. Exercise discussed about Citrucel or psyllium to help with bowel movement Orders: Orders AMB Hemoglobin A1c Today E11.65 - Type 2 diabetes mellitus with hyperglycemia Coding Level of Care Code Est Pt Level 4 (74344) Diagnoses Type 2 diabetes mellitus with hyperglycemia, with long-term current use of insulin E11.65; Z79.4 Diabetes mellitus halfway insulin use: with roasterman use Essential hypertension I10 Hypertension type: essential hypertension Gastroesophageal reflux disease without esophagitis K21.9 Esophagitis presence: without esophagitis Hypercholesterolemia E78.00 Polymyalgia rheumatica M35.3 Constipation K59.00
== END 2023-05-16 12:30 | disposition home or self-care (01) ==
PROVIDERS: PCP Internal Medicine; Visit Provider Internal Medicine
DX: E11.65 Type 2 diabetes mellitus with hyperglycemia (principal); Z79.4 Long term (current) use of insulin; M35.3 Polymyalgia rheumatica; I10 Essential (primary) hypertension; K21.9 Gastro-esophageal reflux disease without esophagitis; E78.00 Pure hypercholesterolemia, unspecified; K59.00 Constipation, unspecified
CPT/HCPCS: 83036; 99214

== ENCOUNTER 2023-08-27 09:53 | Outpatient (AMB) | payer MEDICARE, OTHER, MEDICAID, SELFPAY ==
[2023-08-27 09:56] VITALS: BP 132/68; PULSE 68; O2SAT 98; BMI 24.1
--- NOTE | 2023-08-27 09:56 | A.OFFPC_ITS ---
Vital Signs 08/27/23 09:56 Height 6 ft 1 in Weight 83.007 kg BMI 24.1 BP 132/68 Blood Pressure Location Lt brachial Position Standing Pulse 68 Pulse Source Pulse Oximeter Pulse Oximetry (%) 98 Oxygen Delivery Method Room Air Intake Visit Reasons: 3 month f/u Allergies meloxicam Allergy (Unknown, Verified 08/27/23 09:56) Unknown simvastatin Allergy (Unknown, Verified 08/27/23 09:56) Unknown Medication List - Last Reconciled 08/27/23 by Radha Barrios MD amlodipine 10 mg PO DAILY atorvastatin 20 mg PO DAILY cholecalciferol (vitamin D3) 25 mcg PO DAILY hydrochlorothiazide 12.5 mg PO DAILY insulin aspart U-100 (Novolog FlexPen U-100 Insulin aspart) 5 units subcut TID insulin degludec (Tresiba FlexTouch U-100 insulin) 15 units subcut DAILY insulin lispro (Admelog SoloStar U-100 Insulin lispro) 1 sliding scale dose subcut USEASDIRECTD lisinopril 40 mg PO DAILY omeprazole 20 mg PO DAILY prednisone 2 mg (2 x 1 mg) PO DAILY tadalafil 10 mg PO Q OTHER DAY PRN Tobacco use date assessed: 05/16/23 Fall risk assessment: 1 Fall in past year Last assessed Fall Risk: 08/27/23 Dental Screening Dental Screen Date: 05/16/23 HPI 3 month f/u HPI Details 77-year-old male with diabetes mellitus hypertension GERD h ypercholesterolemia polymyalgia rheumatica coming in for follow-up. Last seen in April 2023. Patient is colonoscopy last done in December 2018 in no more. Patient does follow-up with endocrinology and was last seen in July 2023 patient is not ready to commit to the pump although has been advised. [facility] Medical History Carpal tunnel syndrome Diabetic neuropathy Erectile dysfunction GERD (gastroesophageal reflux disease) Hypercholesterolemia Hypertension Osteopenia Polymyalgia rheumatica Thrombocytopenia Type 2 diabetes mellitus with hyperglycemia Surgical History History of carpal tunnel release Family History Father Hypertension CVD (cardiovascular disease) Mother Cancer Social History Housing: House Alcohol intake: current Alcohol intake frequency: a few times a week Alcohol type: beer and wine Patient Tobacco Use Status: Former Tobacco user Tobacco use type: Cigarette Years Smoked: quit 2005 e-Cigarette/Vaping Use: Never Used Second Hand Smoke Exposure: No service: No Current occupational status: retired Cognitive needs: No Hearing needs: No Vision needs: Yes Questionnaire PHQ-9 Over the last 2 weeks, how often have you been bothered by any of the following problems? 1. Little interest or pleasure in doing things: not at all 2. Feeling down, depressed, or hopeless: not at all 3. Trouble falling or staying asleep, or sleeping too much: several days 4. Feeling tired or having little energy: not at all 5. Poor appetite or overeating: several days 6. Feeling bad about yourself - or that you are a failure or have let yourself or your family down: not at all 7. Trouble concentrating on things, such as reading the newspaper or watching television: not at all 8. Moving or speaking so slowly that other people could have noticed. Or the opposite - being so fidgety or restless that you have been moving around a lot more than usual: not at all 9. Thoughts that you would be better off or of hurting yourself in some way: not at all Total score: 2 Source: Developed by Drs. Sunday Delgado, Marilyn Kennedy, Marco Caldwell and colleagues, with an educational wendie from [employer]. Thrive Questionnaire Date Thrive assessed: 08/27/23 I am a: Patient What is your living situation today?: I have a steady place to live Within the past 12 months, did the food you bought not last and you didn't have the money to get more?: Never true Within the past 12 months, did you worry whether your food would run out before you got money to buy more?: Never true Do you have trouble paying for medicines?: No Do you have trouble getting transportation to medical appointments?: No Do you have trouble paying your heating and electricity bill?: No Do you have trouble taking care of your child, family member or friend?: No Do you have trouble with day-to-day activities such as bathing, preparing meals, shopping, managing finances, etc.?: No Are you currently unemployed and looking for a job?: No Are you interested in more education?: No Currently or been in a relationship where the following occur: no concerns reported THRIVE Score: 0 AUDIT C Alcohol Use Questionnaire (AUDIT-C) 1. How often do you have a drink containing alcohol?: 4 or more times a week 2. How many drinks containing alcohol do you have on a typical day when you are drinking?: 1 or 2 3. How often do you have six or more drinks on one occasion?: Never Total Score: 4 Score Reviewed/Action Taken: No GWYN-7 AMB Questionnaire GWYN-7 Date GWYN - 7 assessed: 05/16/23 Source: Developed by Drs. Sunday Delgado, Marilyn Kennedy, Marco Caldwell and colleagues, with an educational wendie from [employer]. Physical exam (Primary Care) Vital Signs: Last Vital Signs Pulse 68 08/27/23 09:56 BP 132/68 08/27/23 09:56 Pulse Ox 98 08/27/23 09:56 Oxygen Delivery Method Room Air 08/27/23 09:56 BMI result Body Mass Index 24.1 Tobacco/Smoking Status: Tobacco use Status Tobacco use date assessed 05/16/23 08/27/23 09:57 Patient Tobacco Use Status Former Tobacco user 08/27/23 09:57 Tobacco use type Cigarette 08/27/23 09:57 e-Cigarette/Vaping Use Never Used 08/27/23 09:57 PHQ-9: PHQ-9 Score PHQ-9: Total score 2 08/27/23 10:37 Thrive Assessment: Date of Thrive Assessment Date Thrive assessed 08/27/23 08/27/23 09:57 Currently or been in a relationship where the following occur: no concerns reported Const General: alert; No acute distress Eyes Conjunctivae: conjunctivae normal Resp Auscultation: clear to auscultation bilaterally Cardio Rate: regular rate Rhythm: regular rhythm GI Inspection: Yes normal to inspection Extrem General: Yes normal to inspection and No edema Results AMB Hemoglobin A1c AMB Hemoglobin A1c 6.8 % Last Edit by Adri Garcia CMA on 08/27/23 10 :27 Immunizations tetanus-diphtheria toxoids-Td 2 Lf unit-2 Lf unit/0.5 mL IM suspension Performing Provider: Radha Barrios MD [facility] [place] [facility] Administered by: Adri Garcia CMA on 08/27/23 10:49 Dose Route Admin Location Dispensed Lot Number Expiration Date NDC Dining Car Server 0.5 mL IM Left Deltoid 0.5 mL [id number] 06/08/24 [address]-4 [employer] VIS Given Date VIS Provided VIS Publication Date 08/27/23 Single Vaccine 20 Eligibility Eligibility Date Funding Source Not VFC Eligible 08/27/23 State funds Results Reviewed Results Reviewed: Laboratory Last Values Hgb A1c (Clinic) 6.8 % (4.0-6.0) H 08/27/23 09:57 Assessment and Plan Assessment & Plan (1) Type 2 diabetes mellitus with hyperglycemia: Comment: [facility] Dr. Zarco [place] Code(s): E11.65 - Type 2 diabetes mellitus with hyperglycemia Qualifiers: Diabetes mellitus buttermaker continuous churn insulin use: with buttermaker continuous churn use Qualified C ode(s): E11.65 - Type 2 diabetes mellitus with hyperglycemia; Z79.4 - detention (current) use of insulin Plan: Decrease the amount of carbohydrate intake, pasta, bread, rice and potatoes are all sugar and that is aside from all the sweet stuff, remember that fruits are good but they are Sweet also. Hemoglobin A1c goal of less than 7.0. Patient is being followed up by Endocrinology has discussed with him regarding pumps but patient is hesitant on Tresiba and Admelog/NovoLog (2) Hypercholesterolemia: Code(s): E78.00 - Pure hypercholesterolemia, unspecified Plan: Avoid fried foods, chicken skin, eggs, butter margarine, pastries and meat. Be it pork or beef they have a lot of cholesterol atorvastatin 20 mg once a day will need blood work (3) Hypertension: Code(s): I10 - Essential (primary) hypertension Qualifiers: Hypertension type: essential hypertension Qualified Code(s): I10 - Essential (primary) hypertension Plan: Continue with blood pressure medication. Decrease salt intake and exercise takes amlodipine 10 mg once a day hydrochlorothiazide 12.5 mg once a day and lisinopril 40 mg once a day (4) GERD (gastroesophageal reflux disease): Code(s): K21.9 - Gastro-esophageal reflux disease without esophagitis Qualifiers: Esophagitis presence: without esophagitis Qualified Code(s): K21.9 - Gastro-esophageal reflux disease without esophagitis Plan: Avoid the foods that causes that usually spicy foods, tomato products, juices, coffee, soda and foods that your sensitive to. After eating do not lie down, allow 3-4 hours before in lie down. And keep the head of bed above 30 degrees to avoid the acid from going up. (5) Polymyalgia rheumatica: Comment: 10/2010 Code(s): M35.3 - Polymyalgia rheumatica Plan: Continuing with prednisone but decreasing the dose as tolerated. Orders: Orders AMB Hemoglobin A1c Today Z13.9 - Encounter for screening, unspecified Vitamin B12 and Folate 2 Months E11.65 - Type 2 diabetes mellitus with hyperglycemia, Z79.4 - keno terminal operator (current) use of insulin Complete Blood Count Auto Diff 2 Months E11.65 - Type 2 diabetes mellitus with hyperglycemia, Z79.4 - detention (current) use of insulin Comprehensive Met. Panel 2 Months E11.65 - Type 2 diabetes mellitus with hyperglycemia, Z79.4 - keno terminal operator (current) use of insulin Lipid Panel 2 Months E11.65 - Type 2 diabetes mellitus with hyperglycemia, E78.00 - Pure hypercholesterolemia, unspecified, Z79.4 - keno terminal operator (current) use of insulin Microalbumin, Random (w Creat) 2 Months E11.65 - Type 2 diabetes mellitus with hyperglycemia, Z79.4 - keno terminal operator (current) use of insulin Creatinine Urine 2 Months E11.65 - Type 2 diabetes mellitus with hyperglycemia, Z79.4 - detention (current) use of insulin Free T4 (Free Thyroxine) 2 Months E11.65 - Type 2 diabetes mellitus with hyperglycemia, Z79.4 - detention (current) use of insulin Thyroid Stimulating Hormone 2 Months E11.65 - Type 2 diabetes mellitus with hyperglycemia, Z79.4 - keno terminal operator (current) use of insulin Hemoglobin A1c 2 Months E11.65 - Type 2 diabetes mellitus with hyperglycemia, Z79.4 - keno terminal operator (current) use of insulin UA w Microscopic 2 Months E11.65 - Type 2 diabetes mellitus with hyperglycemia, Z79.4 - keno terminal operator (current) use of insulin Td State Immunization Today Z23 - Encounter for immunization Coding Level of Care Code Est Pt Level 4 (47308) Diagnoses Type 2 diabetes mellitus with hyperglycemia, with long-term current use of insulin E11.65; Z79.4 Diabetes mellitus buttermaker continuous churn insulin use: with alf use Hypercholesterolemia E78.00 Essential hypertension I10 Hypertension type: essential hypertension Gastroesophageal reflux disease without esophagitis K21.9 Esophagitis presence: without esophagitis Polymyalgia rheumatica M35.3
== END 2023-08-27 11:02 | disposition home or self-care (01) ==
PROVIDERS: PCP Internal Medicine; Visit Provider Internal Medicine
DX: Z23 Encounter for immunization (principal); E11.65 Type 2 diabetes mellitus with hyperglycemia; Z79.4 Long term (current) use of insulin; E78.00 Pure hypercholesterolemia, unspecified; M35.3 Polymyalgia rheumatica; I10 Essential (primary) hypertension; K21.9 Gastro-esophageal reflux disease without esophagitis
CPT/HCPCS: 83036; 90471; 90714; 99214

== ENCOUNTER 2024-01-09 09:41 | Outpatient (REF) | payer MEDICARE, OTHER, MEDICAID, SELFPAY ==
[2024-01-09 10:23] LABS: MANUAL DIFF FLAG NO
[2024-01-09 10:28] LABS: Appearance Urine Clear; Color Urine Yellow; Glucose Urine UA Negative (Negative); Leukocyte Esterase Urine Negative (Negative); Nitrite Urine Negative (Negative); PH 5.5 (5.0-9.0); Urine Blood Negative (Negative); Urine Ketones Negative (Negative); Urine Protein Negative (Neg-Trace)
[2024-01-09 10:31] LABS: Bacteria Urine None Seen (None Seen); Hyaline Casts Urine 0-2 /LPF (0-2); RBC Urine 0-2 /HPF (0-2); Squamous Epithelial Cell Urine 0-2 /HPF (0-2); WBC Urine 0-5 /HPF (0-5)
[2024-01-09 10:37] LABS: Estimated Average Glucose 177 mg/dL; Hemoglobin A1c % 7.8 % (<6.0)
[2024-01-09 11:11] LABS: Alanine Aminotransferase 31 U/L (0-40); Alkaline Phosphatase 57 U/L (39-117); Anion Gap 10 (12-20); Aspartate Amino Transferase 29 U/L (5-37); Bilirubin Total 0.7 mg/dL (0.0-1.0); Blood Urea Nitrogen 23 mg/dL (9-16); Carbon Dioxide 29 mmol/L (22-29); Chloride 105 mmol/L (96-108); Cholesterol 178 mg/dL (<200); Estimated Glomerular Filt Rate > 60; Free T4 (Free Thyroxine) 0.89 ng/dL (0.71-1.85); Glucose Random 132 mg/dL (60-115); HDL Cholesterol 73 mg/dL (>40); LDL Cholesterol Calculated 90 mg/dL (<100); Potassium 5.2 mmol/L (3.3-5.1); Sodium 139 mmol/L (135-145); Total Protein 6.9 g/dL (6.5-8.0); Triglycerides 79 mg/dL (<150)
[2024-01-09 11:15] LABS: Creatinine Urine 93.78 mg/dL
[2024-01-09 11:17] LABS: Creatinine Urine 95.52 mg/dL; Microalbum/Creatinine Ratio Ur 7.3 ug/mg cr (<30)
[2024-01-09 11:20] LABS: Basophils Percent Auto 0.5 % (0-2); Eosinophils Absolute Auto 0.1 X10*3/uL (0.0-0.4); Eosinophils Percent Auto 1.1 % (0-4); Hematocrit 39.4 % (42.0-52.0); Hemoglobin 13.3 g/dl (14.0-18.0); Imm Gran Abs Auto 0.04 X10*3/uL (0.00-0.03); Imm Gran Pct Auto 0.5 % (0.0-0.4); Lymphocytes Percent Auto 24.8 % (20-40); Mean Corpuscular HGB Conc 33.8 g/dl (31.0-36.0); Mean Corpuscular Hemoglobin 31.8 pg (27.0-33.0); Mean Corpuscular Volume 94.3 fL (80.0-98.0); Mean Platelet Volume 10.6 fL (9.4-12.4); Monocytes Absolute Auto 0.7 X10*3/uL (0.1-1.2); Monocytes Percent Auto 8.6 % (2-11); Neutrophils Absolute Auto 5.1 x10*3/uL (2.0-8.3); Neutrophils Percent Auto 64.5 % (45-73); Platelet Count 181 X10*3/uL (160-400); Red Blood Count 4.18 X10*6/uL (4.60-5.80); Red Cell Distribution Width 13.1 % (11.0-16.0); White Blood Count 7.9 X10*3/uL (4.8-10.8)
[2024-01-09 11:51] LABS: Folate 14.2 ng/mL (> or = 4.0); Vitamin B12 438 pg/mL (200-900)
== END 2024-01-09 09:42 | disposition home or self-care (01) ==
LOC: HO.10HDL 09:41
PROVIDERS: Visit Provider Internal Medicine
DX: E78.00 Pure hypercholesterolemia, unspecified (principal); E11.65 Type 2 diabetes mellitus with hyperglycemia; Z79.4 Long term (current) use of insulin
CPT/HCPCS: 36415; 80053; 80061; 81001; 82043; 82570; 82607; 82746; 83036; 84439; 84443; 85025

== ENCOUNTER 2024-01-15 10:08 | Outpatient (AMB) | payer MEDICARE, OTHER, MEDICAID, SELFPAY ==
[2024-01-15 10:37] VITALS: BP 146/70; PULSE 76; O2SAT 96; BMI 23.6
--- NOTE | 2024-01-15 10:37 | A.OFFPC_ITS ---
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 Seen in 08/17/2023. Patient follows up with Podiatry. Has seen Endocrinology also patient is not interested in pumps. noted BS higher for the polymyalgia increased prednisone due to pain. feeling dizzy and states fallen 4 x since being seen [facility] Medical History Carpal tunnel syndrome Diabetic neuropathy Erectile dysfunction GERD (gastroesophageal reflux disease) Hypercholesterolemia Hypertension Osteopenia Polymyalgia rheumatica Thrombocytopenia Type 2 diabetes mellitus with hyperglycemia Surgical History History of carpal tunnel release Family History Father Hypertension CVD (cardiovascular disease) Mother Cancer Social History Housing: House Alcohol intake: current Alcohol intake frequency: a few times a week Alcohol type: beer and wine Patient Tobacco Use Status: Former Tobacco user Tobacco use type: Cigarette Years Smoked: quit 2005 e-Cigarette/Vaping Use: Never Used Second Hand Smoke Exposure: No service: No Current occupational status: retired Cognitive needs: No Hearing needs: No Vision needs: Yes Questionnaire PHQ-9 Over the last 2 weeks, how often have you been bothered by any of the following problems? 1. Little interest or pleasure in doing things: not at all 2. Feeling down, depressed, or hopeless: not at all 3. Trouble falling or staying asleep, or sleeping too much: several days 4. Feeling tired or having little energy: not at all 5. Poor appetite or overeating: several days 6. Feeling bad about yourself - or that you are a failure or have let yourself or your family down: not at all 7. Trouble concentrating on things, such as reading the newspaper or watching television: not at all 8. Moving or speaking so slowly that other people could have noticed. Or the opposite - being so fidgety or restless that you have been moving around a lot more than usual: not at all 9. Thoughts that you would be better off or of hurting yourself in some way: not at all Total score: 2 Source: Developed by Drs. Sunday Delgado, Marilyn Kennedy, Marco Caldwell and colleagues, with an educational wendie from [employer]. Thrive Questionnaire Date Thrive assessed: 08/27/23 Are you currently unemployed and looking for a job?: No AUDIT C Alcohol Use Questionnaire (AUDIT-C) 1. How often do you have a drink containing alcohol?: 4 or more times a week 2. How many drinks containing alcohol do you have on a typical day when you are drinking?: 1 or 2 3. How often do you have six or more drinks on one occasion?: Never Total Score: 4 Score Reviewed/Action Taken: No GWYN-7 AMB Questionnaire GWYN-7 Date GWYN - 7 assessed: 05/16/23 Source: Developed by Drs. Sunday Delgado, Marilyn Kennedy, Marco Caldwell and colleagues, with an educational wendie from [employer]. Physical exam (Primary Care) Vital Signs: Last Vital Signs Pulse 76 01/15/24 10:37 BP 146/70 H 01/15/24 10:37 Pulse Ox 96 01/15/24 10:37 Oxygen Delivery Method Room Air 01/15/24 10:37 BMI result Body Mass Index 23.6 Tobacco/Smoking Status: Tobacco use Status Tobacco use date assessed 05/16/23 01/15/24 10:43 Patient Tobacco Use Status Former Tobacco user 01/15/24 10:43 Tobacco use type Cigarette 01/15/24 10:43 e-Cigarette/Vaping Use Never Used 01/15/24 10:43 PHQ-9: PHQ-9 Score PHQ-9: Total score 2 01/15/24 10:44 Thrive Assessment: Date of Thrive Assessment Date Thrive assessed 08/27/23 01/15/24 10:43 Const General: alert; No acute distress Eyes Conjunctivae: conjunctivae normal Resp Auscultation: clear to auscultation bilaterally Cardio Rate: regular rate Rhythm: regular rhythm GI Inspection: Yes normal to inspection Extrem General: Yes normal to inspection and No edema Assessment and Plan Assessment & Plan (1) Type 2 diabetes mellitus with hyperglycemia: Comment: [facility] Dr. 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 Hemoglobin A1c goal of less than 7.0 patient is being followed up by Endocrinology on insulin and has declined pumps. has a higher prednisone (2) Hypercholesterolemia: Code(s): E78.00 - Pure hypercholesterolemia, unspecified Plan: Avoid fried foods, chicken skin, eggs, butter margarine, pastries and meat. Be it pork or beef they have a lot of cholesterol LDL goal of less than 100 and triglyceride of less than 150 on atorvastatin 20 mg once a day (3) GERD (gastroesophageal reflux disease): Code(s): K21.9 - Gastro-esophageal reflux disease without esophagitis Qualifiers: Esophagitis presence: without esophagitis Qualified Code(s): K21.9 - Gastro-esophageal reflux disease without esophagitis Plan: Avoid the foods that causes that usually spicy foods, tomato products, juices, coffee, soda and foods that your sensitive to. After eating do not lie down, allow 3-4 hours before in lie down. And keep the head of bed above 30 degrees to avoid the acid from going up. (4) Hypertension: Code(s): I10 - Essential (primary) hypertension Qualifiers: Hypertension type: essential hypertension Qualified Code(s): I10 - Essential (primary) hypertension Plan: Continue with blood pressure medication. Decrease salt intake and exercise takes lisinopril 40 mg once a day amlodipine 10 mg once a day and hydrochlorothiazide 12.5 mg once a day. Patient has run out of amlodipine (5) Polymyalgia rheumatica: Comment: 10/2010 Code(s): M35.3 - Polymyalgia rheumatica Plan: Patient continuing to be on prednisone. ff up with rheumatology (6) Gait instability: Code(s): R26.81 - Unsteadiness on feet Plan: decline Physical therapy. will be more careful Medications: Changed From prednisone or as directed 2 mg (2 x 1 mg) PO DAILY 180 tabs 1RF M35.3 - Polymyalgia rheumatica To prednisone or as directed 10 mg PO DAILY 90 days 90 tabs 1RF M35.3 - Polymyalgia rheumatica Refilled amlodipine 10 mg PO DAILY 90 tabs 3RF I10 - Essential (primary) hypertension Coding Level of Care Code Est Pt Level 4 (98870) Complex EM visit Add On G2211 Diagnoses Type 2 diabetes mellitus with hyperglycemia, with long-term current use of insulin E11.65; Z79.4 Diabetes mellitus usp insulin use: with usp use Hypercholesterolemia E78.00 Gastroesophageal reflux disease without esophagitis K21.9 Esophagitis presence: without esophagitis Essential hypertension I10 Hypertension type: essential hypertension Polymyalgia rheumatica M35.3 Gait instability R26.81
[2024-01-15 11:14] VITALS: BP 130/66
== END 2024-01-15 11:31 | disposition home or self-care (01) ==
PROVIDERS: PCP Internal Medicine; Visit Provider Internal Medicine
DX: E11.65 Type 2 diabetes mellitus with hyperglycemia (principal); Z79.4 Long term (current) use of insulin; M35.3 Polymyalgia rheumatica; E78.00 Pure hypercholesterolemia, unspecified; K21.9 Gastro-esophageal reflux disease without esophagitis; I10 Essential (primary) hypertension; R26.81 Unsteadiness on feet

== ENCOUNTER → 2024-01-15 10:08 | Outpatient (BNVA) | payer MEDICARE, OTHER, MEDICAID, SELFPAY | PROVIDERS: PCP Internal Medicine; Visit Provider Internal Medicine | DX: E11.65 Type 2 diabetes mellitus with hyperglycemia (principal); E78.00 Pure hypercholesterolemia, unspecified; K21.9 Gastro-esophageal reflux disease without esophagitis; M35.3 Polymyalgia rheumatica; R26.81 Unsteadiness on feet; I10 Essential (primary) hypertension; Z79.4 Long term (current) use of insulin | CPT/HCPCS: 99212 ==

== ENCOUNTER 2024-05-05 09:20 | Outpatient (AMB) | payer MEDICARE, OTHER, MEDICAID, SELFPAY ==
[2024-05-05 09:21] VITALS: BP 140/68; PULSE 80; O2SAT 97; BMI 24.8
--- NOTE | 2024-05-05 09:21 | A.OFFPC_ITS ---
Vital Signs 05/05/24 09:21 Height 6 ft 1 in Weight 188 lb BMI 24.8 BP 140/68 H Blood Pressure Location Lt brachial Position Sitting Pulse 80 Pulse Source Pulse Oximeter Pulse Oximetry (%) 97 Oxygen Delivery Method Room Air Intake Visit Reasons: DM Allergies meloxicam Allergy (Unknown, Verified 05/05/24 09:22) Unknown simvastatin Allergy (Unknown, Verified 05/05/24 09:22) Unknown Tobacco use date assessed: 05/05/24 Fall risk assessment: No Falls in past year Last assessed Fall Risk: 05/05/24 Dental Screening Dental Screen Date: 05/16/23 HPI DM HPI Details BP good at home SBP highest 130 here is high The patient is a 78-year-old male presenting with poorly controlled diabetes mellitus and hypertension. During the visit, he reported significantly elevated blood glucose levels, with an A1c of 9.4%, which he acknowledged was tied to poor glycemic control, especially noted during the holiday season. He described experiencing frequent hypoglycemic episodes, particularly in the morning, which he finds challenging to manage. His blood pressure readings at home have generally been acceptable, recording around 120 mmHg, indicating adequate control. However, he mentioned an incident of misplacing his insurance cards and an associated distressful night, which may temporarily impact blood pressure readings due to stress. History of erectile dysfunction was briefly discussed, with the patient requesting refills for tadalafial (Cialis). He has a history of hyperlipidemia, with recent cholesterol levels reportedly acceptable. He experienced a severe bout of cold-like symptoms during the , attributed to a viral infection without fever, likely an upper respiratory viral infection, and not currently symptomatic. Prior management includes atorvastatin, omeprazole for gastrointestinal protection, and continued monitoring and medication adjustments for his chronic conditions. This visit does not rhett any preventative healthcare deficiency, as vaccinations are current, including flu and pneumonia immunizations. [facility] Medical History Carpal tunnel syndrome Diabetic neuropathy Erectile dysfunction GERD (gastroesophageal reflux disease) Hypercholesterolemia Hypertension Osteopenia Polymyalgia rheumatica Thrombocytopenia Type 2 diabetes mellitus with hyperglycemia Surgical History History of carpal tunnel release Family History Father Hypertension CVD (cardiovascular disease) Mother Cancer Social History Housing: House Alcohol intake: current Alcohol intake frequency: a few times a week Alcohol type: beer and wine Patient Tobacco Use Status: Former Tobacco user Tobacco use type: Cigarette Years Smoked: quit 2005 e-Cigarette/Vaping Use: Never Used Second Hand Smoke Exposure: No service: No Current occupational status: retired Cognitive needs: No Hearing needs: No Vision needs: Yes Questionnaire PHQ-9 Over the last 2 weeks, how often have you been bothered by any of the following problems? 1. Little interest or pleasure in doing things: not at all 2. Feeling down, depressed, or hopeless: not at all 3. Trouble falling or staying asleep, or sleeping too much: several days 4. Feeling tired or having little energy: not at all 5. Poor appetite or overeating: several days 6. Feeling bad about yourself - or that you are a failure or have let yourself or your family down: not at all 7. Trouble concentrating on things, such as reading the newspaper or watching television: not at all 8. Moving or speaking so slowly that other people could have noticed. Or the opposite - being so fidgety or restless that you have been moving around a lot more than usual: not at all 9. Thoughts that you would be better off or of hurting yourself in some way: not at all Total score: 2 Depression Screening Interpretation: Positive Depression Screening Done: Yes Source: Developed by Drs. Sunday Delgado, Marilyn Kennedy, Marco Caldwell and colleagues, with an educational wendie from [employer]. Thrive Questionnaire Date Thrive assessed: 05/05/24 I am a: Patient What is your living situation today?: I have a steady place to live Within the past 12 months, did the food you bought not last and you didn't have the money to get more?: Never true Within the past 12 months, did you worry whether your food would run out before you got money to buy more?: Never true Do you have trouble paying for medicines?: No Do you have trouble getting transportation to medical appointments?: No Do you have trouble paying your heating and electricity bill?: No Do you have trouble taking care of your child, family member or friend?: No Do you have trouble with day-to-day activities such as bathing, preparing meals, shopping, managing finances, etc.?: No Are you currently unemployed and looking for a job?: No Are you interested in more education?: No Currently or been in a relationship where the following occur: No concerns reported THRIVE Score: 0 AUDIT C Alcohol Use Questionnaire (AUDIT-C) 1. How often do you have a drink containing alcohol?: 4 or more times a week 2. How many drinks containing alcohol do you have on a typical day when you are drinking?: 1 or 2 3. How often do you have six or more drinks on one occasion?: Never Total Score: 4 Score Reviewed/Action Taken: No GWYN-7 AMB Questionnaire GWYN-7 Date GWYN - 7 assessed: 05/05/24 Feeling nervous, anxious, or on edge: 0 = Not at all Not being able to stop or control worryin = Not at all Worrying too much about different things: 0 = Not at all Trouble relaxin = Not at all Being so restless that it is hard to sit still: 0 = Not at all Becoming easily annoyed or irritable: 0 = Not at all Feeling afraid as if something awful might happen: 0 = Not at all Total GWYN-7 score (0-4 normal; 5-9 mild; 10-14 moderate; 15-21 severe): 0 Source: Developed by Drs. Sunday Delgado, Marilyn Kennedy, Marco Caldwell and colleagues, with an educational wendie from [employer]. Physical exam (Primary Care) Vital Signs: Last Vital Signs Pulse 80 05/05/24 09:21 BP 140/68 H 05/05/24 09:21 Pulse Ox 97 05/05/24 09:21 Oxygen Delivery Method Room Air 05/05/24 09:21 BMI result Body Mass Index 24.8 Tobacco/Smoking Status: Tobacco use Status Tobacco use date assessed 05/05/24 05/05/24 09:25 Patient Tobacco Use Status Former Tobacco user 05/05/24 09:25 Tobacco use type Cigarette 05/05/24 09:25 e-Cigarette/Vaping Use Never Used 05/05/24 09:25 PHQ-9: PHQ-9 Score PHQ-9: Total score 2 05/05/24 09:42 Depression Screening Interpretation: Positive Thrive Assessment: Date of Thrive Assessment Date Thrive assessed 05/05/24 05/05/24 09:25 Currently or been in a relationship where the following occur: No concerns reported Const General: alert; No acute distress Eyes Conjunctivae: conjunctivae normal Resp Auscultation: clear to auscultation bilaterally Cardio Rate: regular rate Rhythm: regular rhythm GI Inspection: Yes normal to inspection Extrem General: Yes normal to inspection and No edema Results AMB Hemoglobin A1c AMB Hemoglobin A1c 9.4 % Last Edit by Adri Garcia CMA on 05/05/24 09 :42 Results Reviewed Results Reviewed: Laboratory Last Values Hgb A1c (Clinic) 9.4 % (4.0-6.0) H 05/05/24 09:33 Coding Level of Care Code Est Pt Level 4 (83750) Complex EM visit Add On G2211 Diagnoses Type 2 diabetes mellitus with hyperglycemia, with long-term current use of insulin E11.65; Z79.4 Diabetes mellitus 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 Zarco [place] Code(s): E11.65 - Type 2 diabetes mellitus with hyperglycemia Category: Medical Qualifiers: Diabetes mellitus alf insulin use: with termite technician use Qualified Code(s): E11.65 - Type 2 diabetes mellitus with hyperglycemia; Z79.4 - manager intermediate (current) use of insulin (2) Hypercholesterolemia: Code(s): E78.00 - Pure hypercholesterolemia, unspecified Category: Medical Plan: test done 12/2023 at goal on atorvastatin (3) GERD (gastroesophageal reflux disease): Code(s): K21.9 - Gastro-esophageal reflux disease without esophagitis Category: Medical Qualifiers: Esophagitis presence: without esophagitis Qualified Code(s): K21.9 - Gastro-esophageal reflux disease without esophagitis (4) Hypertension: Code(s): I10 - Essential (primary) hypertension Category: Medical Qualifiers: Hypertension type: essential hypertension Qualified Code(s): I10 - Essential (primary) hypertension Plan: BP good at home and is taking medication faithfully (5) Polymyalgia rheumatica: Comment: 10/2010 Code(s): M35.3 - Polymyalgia rheumatica Category: Medical Plan - Ensure close monitoring and potential adjustment of diabetic regimen, potentially incorporating insulin pump therapy, to stabilize glycemic control. - Refill prescription for tadalafial Cialis) for erectile dysfunction. - Continue atorvastatin for hyperlipidemia management; review lipid profile in upcoming visits. - Acknowledge resolution of recent viral infection; advise supportive measures and symptomatic care should recurrences occur. - Consider reduction of prednisone usage once diabetes is better controlled, given its impact on glucose levels. - Schedule follow-up visit with truckload owner operator Dr. Delgado on June 08 for further diabetic management. - Maintain vigilance with vaccinations and recommend RSV vaccine if future seasonal risk assessment supports it. - Encourage hand hygiene to prevent norovirus transmission; emphasize sanitation practices. Orders: Orders AMB Hemoglobin A1c Today Z13.9 - Encounter for screening, unspecified Medications: Refilled tadalafil administer approximately 30min before sexual activity; do not use more than 1 dose per 24hrs 10 mg PO Q OTHER DAY PRN 30 tabs 3RF sexual activity N52.9 - Male erectile dysfunction, unspecified
== END 2024-05-05 10:13 | disposition home or self-care (01) ==
PROVIDERS: PCP Internal Medicine; Visit Provider Internal Medicine
DX: E11.65 Type 2 diabetes mellitus with hyperglycemia (principal); Z79.4 Long term (current) use of insulin; M35.3 Polymyalgia rheumatica; E78.00 Pure hypercholesterolemia, unspecified; K21.9 Gastro-esophageal reflux disease without esophagitis; I10 Essential (primary) hypertension

== ENCOUNTER → 2024-05-05 09:20 | Outpatient (BNVA) | payer MEDICARE, OTHER, MEDICAID, SELFPAY | PROVIDERS: PCP Internal Medicine; Visit Provider Internal Medicine | DX: E11.9 Type 2 diabetes mellitus without complications (principal); I10 Essential (primary) hypertension; E11.65 Type 2 diabetes mellitus with hyperglycemia; E78.00 Pure hypercholesterolemia, unspecified; K21.9 Gastro-esophageal reflux disease without esophagitis; M35.3 Polymyalgia rheumatica; N52.9 Male erectile dysfunction, unspecified; Z79.4 Long term (current) use of insulin | CPT/HCPCS: 83036; 96127; 99212 ==

== ENCOUNTER 2024-08-04 09:53 | Outpatient (AMB) | payer MEDICARE, OTHER, MEDICAID, SELFPAY ==
--- NOTE | 2024-08-04 10:00 | A.OFFPC_ITS ---
Vital Signs 08/04/24 10:01 Height 6 ft 1 in Weight 181 lb 6 oz BMI 23.9 BP 132/60 Blood Pressure Location Lt brachial Position Sitting Pulse 75 Pulse Source Pulse Oximeter Temp 97.1 F Temp Source Temporal Artery Scan Pulse Oximetry (%) 98 Oxygen Delivery Method Room Air Intake Visit Reasons: 3 month f/u Intake Note: Patient is here to follow up on DM, HTN, GERD, Hypercholesterolemia. Shampoo Person Required: No Bullet Swaging Machine Adjuster: Not Required per policy Accompanied by: Self / Same As Patient Allergies meloxicam Allergy (Unknown, Verified 08/04/24 10:01) Unknown simvastatin Allergy (Unknown, Verified 08/04/24 10:01) Unknown Medication List - Last Reconciled 08/04/24 by Radha Barrios MD amlodipine 10 mg PO DAILY atorvastatin 20 mg PO DAILY cholecalciferol (vitamin D3) 25 mcg PO DAILY hydrochlorothiazide 12.5 mg PO DAILY insulin degludec (Tresiba FlexTouch U-100 insulin) 15 units subcut DAILY insulin lispro (Admelog SoloStar U-100 Insulin lispro) 1 sliding scale dose subcut USEASDIRECTD lisinopril 40 mg PO DAILY omeprazole 20 mg PO DAILY prednisone 10 mg PO DAILY 90 days tadalafil 10 mg PO Q OTHER DAY PRN Tobacco use date assessed: 08/04/24 Fall risk assessment: No Falls in past year Last assessed Fall Risk: 08/04/24 Dental Screening Dental Screen Date: 08/04/24 Did you have a dental visit in the last 12 months?: Yes Did you have a dental problem in the last 6 months where you did not have access to dental care?: No Was dental information given to patient?: Patient has [facility] Medical History Carpal tunnel syndrome Diabetic neuropathy Erectile dysfunction GERD (gastroesophageal reflux disease) Hypercholesterolemia Hypertension Osteopenia Polymyalgia rheumatica Thrombocytopenia Type 2 diabetes mellitus with hyperglycemia Surgical History History of carpal tunnel release Family History Father Hypertension CVD (cardiovascular disease) Mother Cancer Social History Housing: House Alcohol intake: current Alcohol intake frequency: a few times a week Alcohol type: beer and wine Patient Tobacco Use Status: Former Tobacco user Tobacco use type: Cigarette Years Smoked: quit 2005 e-Cigarette/Vaping Use: Never Used Second Hand Smoke Exposure: Yes service: No Current occupational status: retired Cognitive needs: No Hearing needs: No Vision needs: Yes (Glasses) Questionnaire Thrive Questionnaire Date Thrive assessed: 05/05/24 GWYN-7 AMB Questionnaire GWYN-7 Date GWYN - 7 assessed: 05/05/24 Source: Developed by Drs. Sunday Delgado, Marilyn Kennedy, Marco Caldwell and colleagues, with an educational wendie from [employer]. Physical exam (Primary Care) Vital Signs: Last Vital Signs Temp 97.1 F 08/04/24 10:01 Pulse 75 08/04/24 10:01 BP 132/60 08/04/24 10:01 Pulse Ox 98 08/04/24 10:01 Oxygen Delivery Method Room Air 08/04/24 10:01 BMI result Body Mass Index 23.9 Tobacco/Smoking Status: Tobacco use Status Tobacco use date assessed 08/04/24 08/04/24 10:17 Patient Tobacco Use Status Former Tobacco user 08/04/24 10:17 Tobacco use type Cigarette 08/04/24 10:17 e-Cigarette/Vaping Use Never Used 08/04/24 10:17 Thrive Assessment: Date of Thrive Assessment Date Thrive assessed 05/05/24 08/04/24 10:17 Results AMB Hemoglobin A1c AMB Hemoglobin A1c 8.4 % Last Edit by ISMAEL Frias on 08/04/24 10:16 Results Reviewed Results Reviewed: Laboratory Last Values Hgb A1c (Clinic) 8.4 % (4.0-6.0) H 08/04/24 10:00 Coding Level of Care Code Est Pt Level 4 (58361) Complex EM visit Add On G2211 Diagnoses Cataract H26.9 Assessment & Plan Assessment & Plan (1) Cataract: Code(s): H26.9 - Unspecified cataract Category: Medical Plan History of Present Illness The patient is a 78-year-old male presenting for follow-up of his chronic medical conditions, notably Type 2 diabetes mellitus, hypertension, and hypercholesterolemia. His diabetes remains insufficiently controlled with a recent Hemoglobin A1c at 8.4 despite insulin management using Tresiba and Admelog. The patient has been considering switching to either the ILET or OmniPAD system but has not decided yet. He has hypertension managed with hydrochlorothiazide, amlodipine, and lisinopril. His cholesterol levels are being kept in check with atorvastatin, demonstrated by an LDL level of 90 mg/dL. Chronic anemia has been observed with stable low blood counts. In addition, the patient has a medical history of polymyalgia rheumatica, managed with a tapering dose of prednisone, and gastroesophageal reflux disease managed with omeprazole. He has been advised about his mature cataracts, which need surgical attention. Health Maintenance - LDL cholesterol is maintained with atorvastatin, with an LDL goal of less than 100 mg/dL. - Vaccinations are up-to-date, including tetanus. Social History - Reports weight fluctuations between 175 to 179 pounds but has lost approximately 7 pounds since the last visit. - Denies driving at night regularly, potentially related to mature cataracts. Review of Systems - Eyes: Reports difficulty with vision due to mature cataracts, with ackno wledgment for required surgical correction. - Genitourinary: Reports nocturia, up to four times a night. - Neurological: Reports dizziness and unsteadiness, especially with eye closure. Physical Exam Results - Labs: Hemoglobin A1c at 8.4 as of the last test. - LDL Cholesterol: 90 mg/dL in the latest evaluation. - Blood Count: Chronic anemia with hemoglobin at 13.3. Plan 1. 4. We discussed potential benefits of insulin delivery mechanisms like the ILET or OmniPAD, in consideration of his auto body estimator's advice. The prednisone tapering continues as planned, given its impact on blood glucose levels. His hypertension regimen remains unchanged, with his current medications maintaining optimal control. The treatment for hypercholesterolemia is also sustained since the LDL cholesterol levels meet the target goals. For gastroesophageal reflux disease, current management with omeprazole continues. We discussed the mature state of his cataracts and planned for surgical intervention when suitable. Chronic anemia monitoring continues, given its stable status.: Patient was informed and verbally consented to the use of an ambient scribe for clinic note documentation during this visit. Discussion Notes During today's visit, I discussed with the patient his diabetes management, emphasizing the current Hemoglobin A1c results and potential enhancements via improved insulin administration options. I explained the prednisone's impact on glucose levels and the strategy for its taper. We reviewed the stability of blood pressure and cholesterol levels and affirmed the continuation of his current medication regimen. For his cataracts, I confirmed with the patient the necessity for surgery given its mature status. I discussed follow-up plans with the patient, emphasizing regular reviews for optimal chronic disease management. Patient Instructions - Continue current medications as prescribed for hypertension and diabetes. - Monitor blood glucose levels regularly and report if levels remain particularly elevated or low. - Plan to follow-up with the auto body estimator about potential insulin delivery systems. - Keep scheduled appointments with eye care for further evaluation relating to cataracts. - Practice tapering of prednisone as per instructions and report any complications. - Follow a balanced diet and exercise regimen, aiming to maintain a stable weight. - Return to the clinic for follow-up care in three months. Orders: Orders AMB Hemoglobin A1c Today E11.65 - Type 2 diabetes mellitus with hyperglycemia, Z79.4 - assisted (current) use of insulin
[2024-08-04 10:01] VITALS: BP 132/60; PULSE 75; TEMP 36.2; O2SAT 98; BMI 23.9
--- NOTE | 2024-08-04 10:17 | A.OFFPC_ITS ---
Vital Signs 08/04/24 10:01 Height 6 ft 1 in Weight 181 lb 6 oz BMI 23.9 BP 132/60 Blood Pressure Location Lt brachial Position Sitting Pulse 75 Pulse Source Pulse Oximeter Temp 97.1 F Temp Source Temporal Artery Scan Pulse Oximetry (%) 98 Oxygen Delivery Method Room Air Intake Visit Reasons: 3 month f/u Allergies meloxicam Allergy (Unknown, Verified 08/04/24 10:01) Unknown simvastatin Allergy (Unknown, Verified 08/04/24 10:01) Unknown Medication List - Last Reconciled 08/04/24 by Radha Barrios MD amlodipine 10 mg PO DAILY atorvastatin 20 mg PO DAILY cholecalciferol (vitamin D3) 25 mcg PO DAILY hydrochlorothiazide 12.5 mg PO DAILY insulin degludec (Tresiba FlexTouch U-100 insulin) 15 units subcut DAILY insulin lispro (Admelog SoloStar U-100 Insulin lispro) 1 sliding scale dose subcut USEASDIRECTD lisinopril 40 mg PO DAILY omeprazole 20 mg PO DAILY prednisone 10 mg PO DAILY 90 days tadalafil 10 mg PO Q OTHER DAY PRN Tobacco use date assessed: 08/04/24 Dental Screening Dental Screen Date: 08/04/24 Did you have a dental visit in the last 12 months?: Yes Did you have a dental problem in the last 6 months where you did not have access to dental care?: No Was dental information given to patient?: Patient has dentist [facility] Medical History Carpal tunnel syndrome Diabetic neuropathy Erectile dysfunction GERD (gastroesophageal reflux disease) Hypercholesterolemia Hypertension Osteopenia Polymyalgia rheumatica Thrombocytopenia Type 2 diabetes mellitus with hyperglycemia Surgical History History of carpal tunnel release Family History Father Hypertension CVD (cardiovascular disease) Mother Cancer Social History Housing: House Alcohol intake: current Alcohol intake frequency: a few times a week Alcohol type: beer and wine Patient Tobacco Use Status: Former Tobacco user Tobacco use type: Cigarette Years Smoked: quit 2005 e-Cigarette/Vaping Use: Never Used Second Hand Smoke Exposure: Yes service: No Current occupational status: retired Cognitive needs: No Hearing needs: No Vision needs: Yes (Glasses) Questionnaire Thrive Questionnaire Date Thrive assessed: 05/05/24 GWYN-7 AMB Questionnaire GWYN-7 Date GWYN - 7 assessed: 05/05/24 Source: Developed by Drs. Sunday Delgado, Marilyn Kennedy, Marco Caldwell and colleagues, with an educational wendie from [employer]. Physical exam (Primary Care) Vital Signs: Last Vital Signs Temp 97.1 F 08/04/24 10:01 Pulse 75 08/04/24 10:01 BP 132/60 08/04/24 10:01 Pulse Ox 98 08/04/24 10:01 Oxygen Delivery Method Room Air 08/04/24 10:01 BMI result Body Mass Index 23.9 Tobacco/Smoking Status: Tobacco use Status Tobacco use date assessed 08/04/24 08/04/24 10:17 Patient Tobacco Use Status Former Tobacco user 08/04/24 10:17 Tobacco use type Cigarette 08/04/24 10:17 e-Cigarette/Vaping Use Never Used 08/04/24 10:17 Thrive Assessment: Date of Thrive Assessment Date Thrive assessed 05/05/24 08/04/24 10:17 Const General: alert; No acute distress Eyes Conjunctivae: conjunctivae normal Resp Auscultation: clear to auscultation bilaterally Cardio Rate: regular rate Rhythm: regular rhythm GI Inspection: Yes normal to inspection Extrem General: Yes normal to inspection and No edema Results AMB Hemoglobin A1c AMB Hemoglobin A1c 8.4 % Last Edit by ISMAEL Frias on 08/04/24 10:16 Results Reviewed Results Reviewed: Laboratory Last Values Hgb A1c (Clinic) 8.4 % (4.0-6.0) H 08/04/24 10:00 Coding Level of Care Code Est Pt Level 4 (19860) Complex EM visit Add On G2211 Diagnoses Type 2 diabetes mellitus with hyperglycemia, with long-term current use of insulin E11.65; Z79.4 Diabetes mellitus intermediate frame tender insulin use: with intermediate frame tender use Hypercholesterolemia E78.00 Gastroesophageal reflux disease without esophagitis K21.9 Esophagitis presence: without esophagitis Essential hypertension I10 Hypertension type: essential hypertension Polymyalgia rheumatica M35.3 Assessment & Plan Assessment & Plan (1) Type 2 diabetes mellitus with hyperglycemia: Comment: [facility] Dr. [place] Code(s): E11.65 - Type 2 diabetes mellitus with hyperglycemia Category: Medical Qualifiers: Diabetes mellitus intermediate frame tender insulin use: with intermediate frame tender use Qualified Code(s): E11.65 - Type 2 diabetes mellitus with hyperglycemia; Z79.4 - jail (current) use of insulin Plan: Decrease the amount of carbohydrate intake, pasta, bread, rice and potatoes are all sugar and that is aside from all the sweet stuff, remember that fruits are good but they are Sweet also. Hemoglobin A1c goal of less than 7.0. Patient is under endocrinology and has been suggesting eyelid. Patient is not ready to commit. On insulin Tresiba and NovoLog/Admelog. (2) Hypercholesterolemia: Code(s): E78.00 - Pure hypercholesterolemia, unspecified Category: Medical Plan: Avoid fried foods, chicken skin, eggs, butter margarine, pastries and meat. Be it pork or beef they have a lot of cholesterol LDL goal of less than 100 and triglyceride of less than 150 December 2023 last blood work on atorvastatin (3) GERD (gastroesophageal reflux disease): Code(s): K21.9 - Gastro-esophageal reflux disease without esophagitis Category: Medical Qualifiers: Esophagitis presence: without esophagitis Qualified Code(s): K21.9 - Gastro-esophageal reflux disease without esophagitis Plan: Avoid the foods that causes that usually spicy foods, tomato products, juices, coffee, soda and foods that your sensitive to. After eating do not lie down, allow 3-4 hours before in lie down. And keep the head of bed above 30 degrees to avoid the acid from going up. (4) Hypertension: Code(s): I10 - Essential (primary) hypertension Category: Medical Qualifiers: Hypertension type: essential hypertension Qualified Code(s): I10 - Essential (primary) hypertension Plan: Continue with blood pressure medication. Decrease salt intake and exercise patient on hydrochlorothiazide 12.5 mg once a day amlodipine 10 mg once a day and lisinopril 40 mg once a day (5) Polymyalgia rheumatica: Comment: 10/2010 Code(s): M35.3 - Polymyalgia rheumatica Category: Medical Plan: Patient presently on prednisone and tapering Plan History of Present Illness The patient is a 78-year-old male presenting for follow-up of his chronic medical conditions, notably Type 2 diabetes mellitus, hypertension, and hypercholesterolemia. His diabetes remains insufficiently controlled with a recent Hemoglobin A1c at 8.4 despite insulin management using Tresiba and Admelog. The patient has been considering switching to either the ILET or OmniPAD system but has not decided yet. He has hypertension managed with hydrochlorothiazide, amlodipine, and lisinopril. His cholesterol levels are being kept in check with atorvastatin, demonstrated by an LDL level of 90 mg/dL. Chronic anemia has been observed with stable low blood counts. In addition, the patient has a medical history of polymyalgia rheumatica, managed with a tapering dose of prednisone, and gastroesophageal reflux disease managed with omeprazole. He has been advised about his mature cataracts, which need surgical attention. Health Maintenance - LDL cholesterol is maintained with atorvastatin, with an LDL goal of less than 100 mg/dL. - Vaccinations are up-to-date, including tetanus. Social History - Reports weight fluctuations between 175 to 179 pounds but has lost approximately 7 pounds since the last visit. - Denies driving at night regularly, potentially related to mature cataracts. Review of Systems - Eyes: Reports difficulty with vision due to mature cataracts, with acknowledgment for required surgical correction. - Genitourinary: Reports nocturia, up to four times a night. - Neurological: Reports dizziness and unsteadiness, especially with eye closure. Physical Exam Results - Labs: Hemoglobin A1c at 8.4 as of the last test. - LDL Cholesterol: 90 mg/dL in the latest evaluation. - Blood Count: Chronic anemia with hemoglobin at 13.3. Plan 1. 4. We discussed potential benefits of insulin delivery mechanisms like the ILET or OmniPAD, in consideration of his program manager environmental planning's advice. The prednisone tapering continues as planned, given its impact on blood glucose levels. His hypertension regimen remains unchanged, with his current medications maintaining optimal control. The treatment for hypercholesterolemia is also sustained since the LDL cholesterol levels meet the target goals. For gastroesophageal reflux disease, current management with omeprazole continues. We discussed the mature state of his cataracts and planned for surgical intervention when suitable. Chronic anemia monitoring continues, given its stable status.: Patient was informed and verbally consented to the use of an ambient scribe for clinic note documentation during this visit. Discussion Notes During today's visit, I discussed with the patient his diabetes management, emphasizing the current Hemoglobin A1c results and potential enhancements via improved insulin administration options. I explained the prednisone's impact on glucose levels and the strategy for its taper. We reviewed the stability of blood pressure and cholesterol levels and affirmed the continuation of his current medication regimen. For his cataracts, I confirmed with the patient the necessity for surgery given its mature status. I discussed follow-up plans with the patient, emphasizing regular reviews for optimal chronic disease management. Patient Instructions - Continue current medications as prescribed for hypertension and diabetes. - Monitor blood glucose levels regularly and report if levels remain particularly elevated or low. - Plan to follow-up with the program manager environmental planning about potential insulin delivery systems. - Keep scheduled appointments with eye care for further evaluation relating to cataracts. - Practice tapering of prednisone as per instructions and report any complications. - Follow a balanced diet and exercise regimen, aiming to maintain a stable weight. - Return to the clinic for follow-up care in three months. Orders: Orders AMB Hemoglobin A1c Today E11.65 - Type 2 diabetes mellitus with hyperglycemia, Z79.4 - jail (current) use of insulin
== END 2024-08-04 10:34 | disposition home or self-care (01) ==
LOC: HO.HMCH 09:53
PROVIDERS: PCP Internal Medicine; Visit Provider Internal Medicine
DX: E11.65 Type 2 diabetes mellitus with hyperglycemia (principal); Z79.4 Long term (current) use of insulin; M35.3 Polymyalgia rheumatica; E78.00 Pure hypercholesterolemia, unspecified; K21.9 Gastro-esophageal reflux disease without esophagitis; I10 Essential (primary) hypertension; H26.9 Unspecified cataract

== ENCOUNTER → 2024-08-04 09:53 | Outpatient (BNVA) | payer MEDICARE, OTHER, MEDICAID, SELFPAY | PROVIDERS: PCP Internal Medicine; Visit Provider Internal Medicine | DX: E11.65 Type 2 diabetes mellitus with hyperglycemia (principal); E78.00 Pure hypercholesterolemia, unspecified; K21.9 Gastro-esophageal reflux disease without esophagitis; I10 Essential (primary) hypertension; M35.3 Polymyalgia rheumatica | CPT/HCPCS: 83036; 99212 ==

== ENCOUNTER 2024-10-07 10:37 | Emergency (ER) | payer MEDICARE, OTHER, MEDICAID, SELFPAY ==
--- NOTE | ~2024-10-07 | XR_ITS ---
EXAMINATION: XR SHOULDER, RIGHT CLINICAL INFORMATION: shoulder pain COMPARISON: None available. TECHNIQUE: AP external rotation, Grashey, scapular Y, and axillary views of the right shoulder. FINDINGS: Degenerative changes in the acromioclavicular joint and the glenohumeral joint. No acute cortical disruption or gross malalignment. No lytic or blastic lesions. XR/XR shoulder RT min 2V IMPRESSION: No acute fracture or dislocation. Electronically signed by: Jesus Bullard MD 10/07/2024 12:49 PM EDT
--- NOTE | ~2024-10-07 | XR_ITS ---
EXAMINATION: XR LUMBOSACRAL SPINE CLINICAL INFORMATION: back pain COMPARISON: None available. TECHNIQUE: Three views of the lumbosacral spine. FINDINGS: Multilevel marginal osteophyte formation and endplate sclerosis throughout the axial skeleton. Decreased intervertebral disc height at L5-S1. No acute cortical disruption. No gross malalignment. S-shaped curvature of the lumbar spine. Vascular complications, aorta. XR/XR lumbar spine 2-3V IMPRESSION: Multilevel thoracolumbar spondylosis without acute fracture or trauma-related listhesis. Electronically signed by: Jesus Bullard MD 10/07/2024 12:50 PM EDT
[2024-10-07 11:24] VITALS: BP 157/64; PULSE 68; RESP 16; TEMP 36.3; O2SAT 99; BMI 23.2
--- NOTE | 2024-10-07 11:32 | ED_ITS ---
HPI - General Adult General Chief complaint: Extremity Injury, Lower Stated complaint: back inj, diff walking Time Seen by Provider: 10/07/24 14:48 Source: patient Mode of arrival: ambulatory Limitations: no limitations History of Present Illness ED Provider: Getachew Salcedo HPI narrative: 79 yold male with pmh of constipation, cataract, ostopenia present to the ED for back pain right shoulder pain and low back pain radiating down right leg pain. Patient states he was lifting heavy mulch and wheel [place] for on week doing yard work. Patient denies any chest pain, shortness of breath, or any trauma. Related Data Home Medications ?Medication ?Instructions ?Recorded ?Confirmed cholecalciferol (vitamin D3) 25 25 mcg PO DAILY 03/16/20 08/04/24 mcg (1,000 unit) capsule lisinopril 40 mg tablet 40 mg PO DAILY 03/16/20 08/04/24 insulin degludec 100 unit/mL (3 15 unit subcut DAILY 07/10/21 08/04/24 mL) subcutaneous pen (Tresiba FlexTouch U-100 insulin) hydrochlorothiazide 12.5 mg tablet 12.5 mg PO DAILY 10/17/21 08/04/24 insulin lispro 100 unit/mL 1 sliding scale dose subcut 08/27/23 08/04/24 subcutaneous pen (Admelog SoloStar USEASDIRECTD U-100 Insulin lispro) Previous Rx's ?Medication ?Instructions ?Recorded amlodipine 10 mg tablet 10 mg PO DAILY #90 tabs 01/15/24 omeprazole 20 mg capsule,delayed 20 mg PO DAILY #90 caps 03/28/24 release tadalafil 10 mg tablet 10 mg PO Q OTHER DAY PRN sexual 05/05/24 activity #30 tabs atorvastatin 20 mg tablet 20 mg PO DAILY #90 tabs 06/28/24 prednisone 10 mg tablet 10 mg PO DAILY 90 days #90 tabs 09/06/24 acetaminophen 325 mg capsule 325 mg PO QID PRN pain #28 caps 10/07/24 cyclobenzaprine 10 mg tablet 10 mg PO BEDTIME PRN muscle spasm 10/07/24 #10 tabs Allergies Allergy/AdvReac Type Severity Reaction Status Date / Time meloxicam Allergy Unknown Unknown Verified 10/07/24 11:27 simvastatin Allergy Unknown Unknown Verified 10/07/24 11:27 Review of Systems 2 Review of Systems: right shoulder, low back pain radiating down right leg Yes all other systems are reviewed and are negative [facility] Past Medical History Medical History Carpal tunnel syndrome Diabetic neuropathy Erectile dysfunction GERD (gastroesophageal reflux disease) Hypercholesterolemia Hypertension Osteopenia Polymyalgia rheumatica Thrombocytopenia Type 2 diabetes mellitus with hyperglycemia Surgical History History of carpal tunnel release Family History Family History Father Hypertension CVD (cardiovascular disease) Mother Cancer Social History Social History Housing: House Alcohol intake: current Alcohol intake frequency: a few times a week Alcohol type: beer and wine Patient Tobacco Use Status: Former Tobacco user Tobacco use type: Cigarette Years Smoked: quit 2005 e-Cigarette/Vaping Use: Never Used Second Hand Smoke Exposure: Yes Advance Directives: No Advance Directives Information Provided: Yes Do you have a plan to hurt others: No Plan service: No Current occupational status: retired Cognitive needs: No Hearing needs: No Vision needs: Yes (Glasses) Physical Exam ED Vital Signs: Vital Signs - 24 hr 10/07/24 11:24 Temperature 97.3 F Pulse Rate 68 Respiratory Rate 16 Blood Pressure 157/64 H Pulse Oximetry 99 Oxygen Delivery Method Room Air BMI result Body Mass Index 23.2 Const General: cooperative, healthy appearing, comfortable, no acute distress, well developed, alert, awake and Physically active Orientation/consciousness: patient oriented x3 HENMT Head: Yes normal to inspection, Yes No palpable skull fracture present, Yes normocephalic and Yes atraumatic Eyes General: appearance normal, both eyes and all related structures Visual Fierro: normal visual fierro by confrontation Alignment and Position: alignment normal Periorbital: periorbital findings normal Eyelids: Yes eyelids normal Conjunctivae: conjunctivae normal Sclerae: sclerae normal Corneas: corneas normal Pupils: Equal, round and reactive pupils present Neck Neck: Yes normal visual inspection, Yes full ROM, Yes no lymphadenopathy, Yes no meningeal signs, Yes trachea midline, No anterior neck swelling and No tender Chest Chest palpation & inspection: normal inspection of the chest and normal palpation of entire chest wall Resp Effort & Inspection: normal respiratory effort and able to speak in complete sentences Auscultation: clear to auscultation bilaterally Cardio Jugular venous distension: no JVD Heart sounds: S1 normal heart sound present and S2 normal heart sound present GI Inspection: Yes normal to inspection Palpation (GI): Soft to palpation, not firm, nontender, no guarding and not rigid General: Yes no CVA tenderness Back/Spine/Pelvis Back: no CVA tenderness and back tenderness (lumbar spine tenderness) Skin General skin exam: no rashes or lesions noted, elasticity normal and turgor normal Neuro General: patient oriented x3, gait normal, tone normal, moves all extremities, Normal light touch and pain sensation, no meningeal signs, no focal motor deficits and CN's II-XI intact bilaterally Cranial nerves: Yes Equal, round and reactive pupils present Extrem General: Yes normal to inspection, Yes full ROM and Yes capillary refill normal Shoulder/upper arm images: 2 1. positive for tenderness on palpation. negative for swelling, ecchymosis, deformity, redness,crepitus, hotness, or coldness. Rest of extremity normal. motor, neuro, and vascular exam is intact. Course Course Course Narrative: RME: 79 yold male presents to the ED For lower back radiating down leg and also right shoulder/arm pain after 1 weeks of moving mulch with wheelbarrow. Patient denies pain on movement. Patient denies any blunt trauma. Patient denies any chest pain, shortness of breath or syncopal episode. Patient denies any swelling or calf pain. X-rays ordered. Medical Decision Making Medical Decision Making MDM Narrative: 79-year-old male presents to the ED for lower back pain and right shoulder pain and back pain radiating down right leg that is worse on movement ever since doing the Motrin move in the will be around for 1 week. Patient denies any blunt trauma or falling to the ground. Patient denies any chest pain, shortness of breath, slurred speech, facial droop, paralysis of extremities, or loss of vision. Lumbar spine x-ray shows spondylolysis and arthritis. Shoulder x-ray negative for fracture. Patient well-appearing. Patient explained worrisome signs and informed to return to the ED immediately. Not suspecting [place], ACS, abdominal aortic dissection, DVT, PE, arterial occlusion, cauda equinus syndrome, epidural abscess, or any other life threatening etiology. Patient denies any urinary/bowel incontinence or IV drug use Differential Diagnosis Differential Diagnoses: The differential diagnosis associated with the presentation includes (Shoulder back pain, strain, dislocation) Independent Historian Clinical information obtained from an independent historian. History obtained from or confirmed by: Other (patient) Prescription Management I considered prescription management with: Pain Medication Discharge Plan Discharge Clinical Impression: Lumbar radiculopathy, Lumbar back sprain, Shoulder sprain Patient Disposition: Home, Self-Care Instructions: Osteoarthritis (ED), Shoulder Sprain (ED), Lumbar Radiculopathy (ED), Back Pain (ED) Additional Instructions: Recommend follow-up with primary care provider. Return to the ED immediately for any urinary/bowel incontinence, abdominal pain, severe back pain, nausea, vomiting, fever, chills, flank pain, bluish black discoloration, swelling of the extremities, numbness/tingling, chest pain, shortness of breath, or any other concerning symptoms. EXAMINATION: XR SHOULDER, RIGHT CLINICAL INFORMATION: shoulder pain COMPARISON: None available. TECHNIQUE: AP external rotation, Grashey, scapular Y, and axillary views of the right shoulder. FINDINGS: Degenerative changes in the acromioclavicular joint and the glenohumeral joint. No acute cortical disruption or gross malalignment. No lytic or blastic lesions. XR/XR shoulder RT min 2V IMPRESSION: No acute fracture or dislocation. Electronically signed by: Jesus Bullard MD 10/07/2024 12:49 PM EDT Workstation: [id number] XRay Report Signed Patient: Maksim Pa MR#: [id number] : 1945 Acct:[id number] Age/Sex: 79 / M ADM Date: 10/07/24 Loc: .ED Attending Dr: Ordering Physician: Getachew Salcedo Date of Service: 10/07/24 Procedure(s): XR lumbar spine 2-3V Accession Number(s): [id number] cc: Getachew Salcedo; Radha Barrios MD~ EXAMINATION: XR LUMBOSACRAL SPINE CLINICAL INFORMATION: back pain COMPARISON: None available. TECHNIQUE: Three views of the lumbosacral spine. FINDINGS: Multilevel marginal osteophyte formation and endplate sclerosis throughout the axial skeleton. Decreased intervertebral disc height at L5-S1. No acute cortical disruption. No gross malalignment. S-shaped curvature of the lumbar spine. Vascular complications, aorta. XR/XR lumbar spine 2-3V IMPRESSION: Multilevel thoracolumbar spondylosis without acute fracture or trauma-related listhesis. Electronically signed by: Jesus Bullard MD 10/07/2024 12:50 PM EDT Prescriptions: New cyclobenzaprine 10 mg tablet 10 mg PO BEDTIME PRN (Reason: muscle spasm) Qty: 10 0RF Rx Instructions: Side effects drowsiness. Do not take at work or while driving acetaminophen 325 mg capsule 325 mg PO QID PRN (Reason: pain) Qty: 28 0RF No Action omeprazole 20 mg capsule,delayed release(DR/EC) 20 mg PO DAILY Qty: 90 3RF atorvastatin 20 mg tablet 20 mg PO DAILY Qty: 90 3RF prednisone 10 mg tablet 10 mg PO DAILY 90 Days Qty: 90 1RF Rx Instructions: or as directed cholecalciferol (vitamin D3) 25 mcg (1,000 unit) capsule 25 mcg PO DAILY lisinopril 40 mg tablet 40 mg PO DAILY Tresiba FlexTouch U-100 100 unit/mL (3 mL) insulin pen 15 unit subcut DAILY hydrochlorothiazide 12.5 mg tablet 12.5 mg PO DAILY insulin lispro [Admelog SoloStar U-100 Insulin] 100 unit/mL insulin pen 1 sliding scale dose subcut USEASDIRECTD amlodipine 10 mg tablet 10 mg PO DAILY Qty: 90 3RF tadalafil 10 mg tablet 10 mg PO Q OTHER DAY PRN (Reason: sexual activity) Qty: 30 3RF Rx Instructions: administer approximately 30min before sexual activity; do not use more than 1 dose per 24hrs Referrals: Radha Barrios MD [Primary Care Provider] - (Back right shoulder pain) Interventions: ED Discharge Assessment Last Done: 10/07/24 15:24 Discharge Date/Time: 10/07/24 15:25 Print Language: Mongolian
[2024-10-07 15:24] VITALS: BP 157/64; PULSE 68; RESP 16; TEMP 36.3; O2SAT 99
== END 2024-10-07 15:25 | disposition home or self-care (01) ==
PROVIDERS: Emergency Provider Emergency Medicine Emergency Medical Services; PCP Internal Medicine
DX: M54.16 Radiculopathy, lumbar region (principal); S33.5XXA Sprain of ligaments of lumbar spine, initial encounter; S43.401A Unspecified sprain of right shoulder joint, initial encounter; X50.0XXA Overexertion from strenuous movement or load, initial encounter; M54.50 Low back pain, unspecified; Y93.H2 Activity, gardening and landscaping; Y92.017 Garden or yard in single-family (private) house as the place of occurrence of the external cause; Y99.9 Unspecified external cause status
CPT/HCPCS: 72100; 73030; 99282; 99283

== ENCOUNTER → 2024-10-07 11:29 | Outpatient (BNV) | payer MEDICARE, OTHER, MEDICAID, SELFPAY | PROVIDERS: PCP Internal Medicine; Visit Provider Radiology Diagnostic Radiology | DX: M47.815 Spondylosis without myelopathy or radiculopathy, thoracolumbar region (principal); M25.511 Pain in right shoulder | CPT/HCPCS: 72100; 73030 ==

== ENCOUNTER 2024-10-15 16:04 | Outpatient (AMB) | payer MEDICARE, OTHER, MEDICAID, SELFPAY ==
[2024-10-15 16:15] VITALS: BP 116/62; PULSE 83; RESP 16; TEMP 36.3; O2SAT 96; BMI 23.9
--- NOTE | 2024-10-15 16:15 | MHC.PC.OV ---
Vital Signs 10/15/24 16:15 Height 6 ft 1 in Weight 181 lb 3.2 oz BMI 23.9 BP 116/62 Blood Pressure Location Lt brachial Position Sitting Respiration 16 Pulse 83 Pulse Source Pulse Oximeter Temp 97.3 F Temp Source Temporal Artery Scan Pulse Oximetry (%) 96 Oxygen Delivery Method Room Air [place] [facility] [place], diff walking Intake Note: Patient is here to follow-up after a visit the emergency department at [facility] in [place], [place] on 10/07/2024. Photographic Technician Required: No Accompanied by: Spouse Allergies meloxicam Allergy (Unknown, Verified 10/15/24 16:16) Unknown simvastatin Allergy (Unknown, Verified 10/15/24 16:16) Unknown Medication List - Last Reconciled 10/15/24 by Josephine Preciado PA-C acetaminophen 325 mg PO QID PRN alcohol swabs (BD Alcohol Swabs) pad topical amlodipine 10 mg PO DAILY atorvastatin 20 mg PO DAILY blood-glucose sensor (Dexcom G6 Sensor device) As directed blood-glucose transmitter (Dexcom G6 Transmitter device) As directed cholecalciferol (vitamin D3) 25 mcg PO DAILY cyclobenzaprine 10 mg PO BEDTIME PRN hydrochlorothiazide 12.5 mg PO DAILY insulin degludec (Tresiba FlexTouch U-100 insulin) 15 units subcut DAILY insulin lispro (Admelog SoloStar U-100 Insulin lispro) 1 sliding scale dose subcut USEASDIRECTD lisinopril 40 mg PO DAILY omeprazole 20 mg PO DAILY pen needle, diabetic As directed prednisone 10 mg PO DAILY 90 days tadalafil 10 mg PO Q OTHER DAY PRN Tobacco use date assessed: 10/15/24 Fall risk assessment: 2 + Falls in past year Last assessed Fall Risk: 10/15/24 Dental Screening Dental Screen Date: 10/15/24 Did you have a dental visit in the last 12 months?: Yes Did you have a dental problem in the last 6 months where you did not have access to dental care?: No Was dental information given to patient?: Patient has dentist [place] [facility] [place], diff walking HPI Details 79-year-old male with past medical history of GERD, hypertension, hypercholesterolemia, polymyalgia rheumatica, diabetes mellitus, osteopenia last seen 07/2024 coming in for hospital discharge follow up. In review of the notes, patient was seen [place] [facility] [place] for back pain radiating down the right leg and right shoulder pain. Lumbar spine x-ray showing spondylosis and arthritis and shoulder x-ray negative for fracture. Patient was given Tylenol and cyclobenzaprine and discharged home to follow up with PCP. Presenting with severe leg pain and inability to walk. The pain began approximately two weeks ago, initially suspected to be related to lifting heavy wheelbarrows and performing yard work. 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 The patient reports that the pain is localized to the leg and not the back, with no improvement despite medication. 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 [facility] Medical History Osteopenia Erectile dysfunction Type 2 diabetes mellitus with hyperglycemia Polymyalgia rheumatica Thrombocytopenia Hypercholesterolemia GERD (gastroesophageal reflux disease) Carpal tunnel syndrome Diabetic neuropathy Hypertension Surgical History History of carpal tunnel release Family History Father Hypertension CVD (cardiovascular disease) Mother Cancer Social History Housing: House Alcohol intake: current Alcohol intake frequency: a few times a week Alcohol type: beer and wine Patient Tobacco Use Status: Former Tobacco user Tobacco use type: Cigarette Years Smoked: quit 2005 e-Cigarette/Vaping Use: Never Used Second Hand Smoke Exposure: Yes service: No Current occupational status: retired Cognitive needs: No Hearing needs: No Vision needs: Yes (Glasses) Questionnaire Thrive Questionnaire Date Thrive assessed: 10/15/24 I am a: Patient What is your living situation today?: I have a steady place to live Within the past 12 months, did the food you bought not last and you didn't have the money to get more?: Never true Within the past 12 months, did you worry whether your food would run out before you got money to buy more?: Never true Do you have trouble paying for medicines?: No Do you have trouble getting transportation to medical appointments?: No Do you have trouble paying your heating and electricity bill?: No Do you have trouble taking care of your child, family member or friend?: No Do you have trouble with day-to-day activities such as bathing, preparing meals, shopping, managing finances, etc.?: No Are you currently unemployed and looking for a job?: No Are you interested in more education?: No Please select the resources that you would like help with: None Currently or been in a relationship where the following occur: No concerns reported THRIVE Score: 0 AUDIT C Alcohol Use Questionnaire (AUDIT-C) 1. How often do you have a drink containing alcohol?: 4 or more times a week 2. How many drinks containing alcohol do you have on a typical day when you are drinking?: 1 or 2 3. How often do you have six or more drinks on one occasion?: Never Total Score: 4 Score Reviewed/Action Taken: Yes GWYN-7 AMB Questionnaire GWYN-7 Date GWYN - 7 assessed: 05/05/24 Source: Developed by Drs. Sunday Delgado, Marilyn Kennedy, Marco Caldwell and colleagues, with an educational wendie from [employer]. Review of Systems Const Denies body aches, Denies chills, Denies fever(s) and Denies poor appetite Eyes Reports no additional complaints Card Denies chest pain, Denies lightheadedness and Denies dyspnea Resp Denies dyspnea GI Denies abdominal pain, Denies nausea and Denies vomiting Reports no additional complaints Musc Details: Left hip pain that radiates to the left thigh Reports no additional complaints and Denies abnormal gait Skin/Breast Reports system reviewed and no additional complaints, except as documented Neuro Denies abnormal gait Psych Reports no additional complaints Physical exam (Primary Care) Vital Signs: Last Vital Signs Temp 97.3 F 10/15/24 16:15 Pulse 83 10/15/24 16:15 Resp 16 10/15/24 16:15 BP 116/62 10/15/24 16:15 Pulse Ox 96 10/15/24 16:15 Oxygen Delivery Method Room Air 10/15/24 16:15 BMI result Body Mass Index 23.9 Tobacco/Smoking Status: Tobacco use Status Tobacco use date assessed 10/15/24 10/15/24 16:18 Patient Tobacco Use Status Former Tobacco user 10/15/24 16:18 Tobacco use type Cigarette 10/15/24 16:18 e-Cigarette/Vaping Use Never Used 10/15/24 16:18 Thrive Assessment: Date of Thrive Assessment Date Thrive assessed 10/15/24 10/15/24 16:18 Currently or been in a relationship where the following occur: No concerns reported Const General: cooperative, healthy appearing, comfortable and no acute distress Orientation/consciousness: patient oriented x3 HENLA Head: Yes normocephalic Ears: hearing grossly normal bilaterally General nose exam: Normal external nose present Eyes General: appearance normal, both eyes and all related structures Conjunctivae: conjunctivae normal Neck Neck: Yes full ROM and Yes no lymphadenopathy Resp Effort & Inspection: normal respiratory effort Auscultation: clear to auscultation bilaterally, no crackles, no rales, no rhonchi and no wheezes Cardio Rate: regular rate Rhythm: regular rhythm Back/Spine/Pelvis Other: No tenderness to palpation over lumbar spine. Mild tenderness to palpation over left hip. Skin General skin exam: no rashes or lesions noted Neuro General: patient oriented x3 Gait exam (Neuro): Normal gait present Extrem Other: Normal strength, sensation and pulses in bilateral lower extremities no calf swelling bilaterally General: Yes normal to inspection, Yes full ROM and No edema Psych Affect: normal affect Attitude: cooperative Insight: Good insight present (Psych) Judgement: Good judgement present (Psych) Coding Level of Care Code Est Pt Level 3 (14784) Diagnoses Hip pain, left M25.552 Assessment & Plan Assessment & Plan (1) Hip pain, left: Code(s): M25.552 - Pain in left hip Category: Medical Plan: The patient will be prescribed tramadol for severe pain management, with instructions to use it only for high pain levels and to avoid driving while on the medication. Baclofen will also be prescribed as a muscle relaxant, with guidance to avoid simultaneous use with tramadol to prevent excessive drowsiness. An x-ray of the hips will be conducted to assess for any further degenerative changes or other underlying issues contributing to the pain. A referral to orthopedics will be made to evaluate the need for further intervention, such as injections or potential hip replacement, depending on the severity of the arthritis. Physical therapy is also recommended to improve mobility and manage pain, with a referral to be scheduled. Plan This note was constructed using voice recognition software. While every effort has been made to ensure accuracy and concrete boom pump operator, still areas may have been included sometimes these areas may affect the content or meeting of the given symptoms. Total time spent caring for the patient today was 20 minutes. This includes time spent before the visit reviewing the chart, time spent during the visit, and time spent after the visit and documentation. Patient was informed and verbally consented to the use of an ambient scribe for clinic note documentation during this visit. Orders: Orders PT Evaluation and Treatment 10/15/24 M25.552 - Pain in left hip XR hip BI w PEL1V Today M25.552 - Pain in left hip Referrals Orthopedics Referral M25.552 - Pain in left hip Medications: New baclofen 10 mg PO BEDTIME 20 tabs 0RF tramadol 50 mg PO BEDTIME 14 tabs 0RF Discontinued cyclobenzaprine Side effects drowsiness. Do not take at work or while driving Discontinued Reason: Patient no longer taking 10 mg PO BEDTIME PRN 10 tabs 0RF muscle spasm
== END 2024-10-15 17:23 | disposition home or self-care (01) ==
LOC: HO.HMCH 16:04
PROVIDERS: PCP Internal Medicine
DX: M25.552 Pain in left hip (principal)

== ENCOUNTER → 2024-10-15 16:04 | Outpatient (BNVA) | payer MEDICARE, OTHER, MEDICAID, SELFPAY | PROVIDERS: PCP Internal Medicine | DX: M25.552 Pain in left hip (principal) | CPT/HCPCS: 99212 ==

== ENCOUNTER 2024-10-16 11:32 | Outpatient (REF) | payer MEDICARE, OTHER, MEDICAID, SELFPAY ==
--- NOTE | ~2024-10-16 | XR_ITS ---
EXAMINATION: XR BILATERAL HIPS WITH AP PELVIS CLINICAL INFORMATION: M25.552 - Pain in left hip COMPARISON: Left hip 06/28/2020. TECHNIQUE: AP and frog-leg lateral views of each hip and an AP view of the pelvis. FINDINGS: Normal bony mineralization. No fracture, dislocation, or suspicious bone lesion. Several small sclerotic foci above the left acetabulum are consistent with benign and stable bone islands. Normal hip alignment bilaterally. There are mild to moderate degenerative changes in the left hip joint. There are mild degenerative changes in the right hip joint. Normal acetabular coverage bilaterally. The sacrum is intact. There are mild arthritic changes in the SI joints and the lower lumbar spine. There is no discrete soft tissue abnormality. There are vascular calcifications. XR/XR hip BI w PEL1V IMPRESSION: 1. No acute bony abnormalities. 2. Mild to moderate degenerative arthritis LEFT hip joint. 3. Mild degenerative arthritis RIGHT hip joint. Electronically signed by: Jared Mccullough MD 10/16/2024 12:10 PM EDT
== END 2024-10-16 11:33 | disposition home or self-care (01) ==
LOC: HO.XRAY 11:32
DX: M25.552 Pain in left hip (principal)
CPT/HCPCS: 73521

== ENCOUNTER → 2024-10-16 11:36 | Outpatient (BNV) | payer MEDICARE, OTHER, MEDICAID, SELFPAY | PROVIDERS: Visit Provider Radiology Diagnostic Radiology | DX: M16.12 Unilateral primary osteoarthritis, left hip (principal) | CPT/HCPCS: 73521 ==

== ENCOUNTER 2024-10-27 10:14 | Emergency (ER) | payer MEDICARE, OTHER, MEDICAID, SELFPAY ==
--- NOTE | ~2024-10-27 | CT_ITS ---
EXAMINATION: CT HIP WITHOUT CONTRAST, LEFT CLINICAL INFORMATION: Worsening left hip pain COMPARISON: October 16, 2024 x-ray TECHNIQUE: Multidetector volumetric imaging was obtained through the left hip without contrast material. Multiplanar reformatted images were submitted in coronal and sagittal planes. This CT examination was performed using dose optimization techniques as appropriate, variously including the following: *Automated exposure control *Adjustment of mA and/or kV according to patient size (this includes techniques or standardized protocols for targeted exams where dose is matched to indication/reason for exam; i.e. extremities or head) *Use of iterative reconstruction technique DLP: 232 mGY*cm FINDINGS: Left hip joint demonstrates severe narrowing superior laterally with mild subluxation. There is degenerative cystic change in the margin of the acetabular roof. There is mild subchondral sclerosis through the acetabular roof. There are marginal osteophytes involving the femoral head and acetabulum. 7 mm stellate density in the left ilium, cephalad to the hip joint, is consistent with a benign bone island. There is focal irregular flattening and vacuum phenomena involving the anterior superior left femoral head (sagittal 111/188). Bridging osteophyte is present involving the anterior left SI joint. There is severe fatty replacement involving left gluteus minimus muscle. There is focal calcification in the tendon 1 cm cephalad to the greater trochanter. There is ossification in the iliopsoas tendon cephalad to the lesser trochanter. Pelvic contents grossly unremarkable. CT/CT hip LT wo IV con IMPRESSION: Severe left hip osteoarthritis and suspected subchondral insufficiency fracture, age indeterminate, involving the anterosuperior left femoral head. Left SI joint: Mild osteoarthritis. Electronically signed by: Neymar Rosenberg MD 10/27/2024 01:31 PM EDT
[2024-10-27 10:21] VITALS: BP 122/68; PULSE 95; RESP 18; TEMP 36.6; O2SAT 97; BMI 23.7
[2024-10-27 10:40] LABS: Glucose, Whole Blood 352 mg/dL (60-115)
[2024-10-27 11:43] VITALS: PULSE 82; RESP 19; O2SAT 99
--- NOTE | 2024-10-27 11:53 | ED.EXTPRO ---
HPI - Extremity Problem General Chief complaint: Extremity Problem Stated complaint: Painful Arthritis Diabetic Time Seen by Provider: 10/27/24 11:41 Source: patient and family (son) Mode of arrival: ambulatory Limitations: physical limitation History of Present Illness ED Provider: [place] Garnett PA-C HPI Narrative: 79-year-old male with past medical history significant for osteopenia PMR, diabetic neuropathy, and chronic steroid use presenting to the emergency department today for ongoing left-sided leg pain. He was seen here 2-1/2 weeks ago and diagnosed with a lumbar strain due to repetitive lifting and trunk rotation. Patient reports that since that time he has had ongoing left-sided leg weakness. He is having a harder time bearing weight on it he reports it is sore all over. He is denying any saddle anesthesia or change or loss in his bladder or bowel function. He has not had any falls or trauma but ever since using the wheelbarrow a lot that day weakness in his leg has progressed. It doess not feel the same strength he is used to. He does intermittently have pain on the right side but does not bothering him today. Patient has taken muscle relaxers and gabapentin as well as Advil and it does not seem to help in any way. Patient has DMII on insulin. Blood sugars have been in 300s at baseline, son agrees. He is denying any chest pain shortness of breath. Pain is worse if he lays on his left side on the bed which also matches the same pain for which he bears weight with. There is no pain in his foot ankle or calf. Related Data Home Medications ?Medication ?Instructions ?Recorded ?Confirmed cholecalciferol (vitamin D3) 25 25 mcg PO DAILY 03/16/20 10/15/24 mcg (1,000 unit) capsule lisinopril 40 mg tablet 40 mg PO DAILY 03/16/20 10/15/24 insulin degludec 100 unit/mL (3 15 unit subcut DAILY 07/10/21 10/15/24 mL) subcutaneous pen (Tresiba FlexTouch U-100 insulin) hydrochlorothiazide 12.5 mg tablet 12.5 mg PO DAILY 10/17/21 10/15/24 insulin lispro 100 unit/mL 1 sliding scale dose subcut 08/27/23 10/15/24 subcutaneous pen (Admelog SoloStar USEASDIRECTD U-100 Insulin lispro) alcohol swabs (BD Alcohol Swabs) pad topical diabetes mellitus 10/15/24 10/15/24 blood-glucose sensor (Dexcom G6 #1 ea 10/15/24 10/15/24 Sensor device) blood-glucose transmitter (Dexcom #1 ea 10/15/24 10/15/24 G6 Transmitter device) pen needle, diabetic 32 gauge x #1,200 ea 10/15/24 10/15/24 Previous Rx's ?Medication ?Instructions ?Recorded amlodipine 10 mg tablet 10 mg PO DAILY #90 tabs 01/15/24 omeprazole 20 mg capsule,delayed 20 mg PO DAILY #90 caps 03/28/24 release tadalafil 10 mg tablet 10 mg PO Q OTHER DAY PRN sexual 05/05/24 activity #30 tabs atorvastatin 20 mg tablet 20 mg PO DAILY #90 tabs 06/28/24 prednisone 10 mg tablet 10 mg PO DAILY 90 days #90 tabs 09/06/24 acetaminophen 325 mg capsule 325 mg PO QID PRN pain #28 caps 10/07/24 baclofen 10 mg tablet 10 mg PO BEDTIME #20 tabs 10/15/24 tramadol 50 mg tablet 50 mg PO BEDTIME #14 tabs 10/15/24 gabapentin 100 mg capsule 100 mg PO BEDTIME #30 caps 10/21/24 morphine 15 mg immediate release 15 mg PO Q6H PRN pain (scale score 10/27/24 tablet 7-10) #10 tabs naproxen 500 mg tablet,delayed 500 mg PO BID PRN pain (scale 10/27/24 release score 4-6) #30 tabs walker #1 ea 10/27/24 Allergies Allergy/AdvReac Type Severity Reaction Status Date / Time meloxicam Allergy Unknown Unknown Verified 10/27/24 10:26 simvastatin Allergy Unknown Unknown Verified 10/27/24 10:26 Review of Systems Review of Systems: Yes all other systems are reviewed and are negative PMFSH Past Medical History Attestation statement: The following information was validated with the patient. Source: old records reviewed, obtained from family and nursing notes reviewed Medical History Osteopenia Erectile dysfunction Type 2 diabetes mellitus with hyperglycemia Polymyalgia rheumatica Thrombocytopenia Hypercholesterolemia GERD (gastroesophageal reflux disease) Carpal tunnel syndrome Diabetic neuropathy Hypertension Surgical History History of carpal tunnel release Family History Family History Father Hypertension CVD (cardiovascular disease) Mother Cancer Social History Social History Housing: House Alcohol intake: current Alcohol intake frequency: 0-2 drinks per day Alcohol type: hard liquor Patient Tobacco Use Status: Former Tobacco user Tobacco use type: Cigarette Years Smoked: quit 2006 Smoked in Last 30 Days: No e-Cigarette/Vaping Use: Never Used Second Hand Smoke Exposure: Yes Use of substances other than those prescribed or required for medical reasons: No Advance Directives: No Advance Directives Information Provided: Yes Do you have a plan to hurt others: No Plan service: No Current occupational status: retired Cognitive needs: No Hearing needs: No Vision needs: Yes (Glasses) Physical Exam Vital Signs: Vital Signs: Last Vital Signs Temp 97.2 F 10/27/24 16:10 Pulse 70 10/27/24 16:10 Resp 18 10/27/24 16:10 BP 148/69 H 10/27/24 16:10 Pulse Ox 97 10/27/24 16:10 O2 Del Method Room Air 10/27/24 16:10 BMI result Body Mass Index 23.7 Const: Other: appears stated age. No septic or ill-appearing. Vitals were reviewed as normal, and PMH/Social and Surgical hx was reviewed, including allergies and current medications. - reviewed for prior visits here and read as it pertains to similar CC. Head: Normocephalic, no obvious trauma or skin lesions noted. Eyes: EOMI ENMT: moist oral mucosa Neck: trachea midline Cardiovascular: peripheral perfusion normal, Regular heart rate Respiratory: no respiratory distress Abdomen: non-distended Extremities: warm and moving without difficulty With exception to the left lower extremity.Pain with abduction of the left hip and is limited with abduction compared to the other side stops at approximately 10 degreesThere is no direct tenderness to palpation negative FADER/ANIA negative straight leg raise bilaterally. Compartments are soft DTRs are intact patient is able to flex and extend his knee but it reproduces pain at the level of the left hip. Cap refills less than 3 seconds distal pulses are 2+ compartments are softNo pain with pelvic rocking no pain with pelvic squeezing, No midline tenderness step-offs or deformities of entire spine no sciatic notch or GT tenderness bilaterally. Gait was not evaluated until physical therapy came. Using a walker patient is able to walk pretty swiftly Almost too fast, He was observed not to bear much weight onto the walker with ambulating lifts feet up well General: cooperative, healthy appearing, comfortable and no acute distress Nutritional Appearance: average body habitus Orientation/consciousness: patient oriented x3 Limitations: physical limitations Neuro: General: patient oriented x3 Medical Decision Making Medical Decision Making MDM Narrative: Patient presents to ED today for evaluation of Ongoing left-sided hip pain. He was seen here A few weeks ago on 10/07/2024. He had a x-ray done of the lumbar spine and hip/pelvis-Degenerative changes show no acute fracture. Patient is afebrile with stable vitals and well-appearing. History and physical as stated above. Patient is neurovascular intact in the affected extremity. Given the limited range of motion on this joint on physical exam and continued pain I then ordered a CT of the hip for better detail and evaluation. Findings: Severe left hip osteoarthritis and suspected subchondral insufficiency fracture, age indeterminate, involving the anterosuperior left femoral head. Given these findings of likely chronicity but worsening a PT CM consult was placed to see whether or not he would benefit from DME with home care versus a short-term rehab. Patient was open to either option. PT recommended that patient go home with DME and that he should have at least recommend VNA services. Case management was able to find him same day VNA services which will either go there tomorrow the next day patient and his son who is present agreed to this plan. Patient was able to take a walker at home with him. And as there is no evidence for neurovascular compromise or concerns for acute infection further workup was deferred. The patient was discharged home in stable condition with return precautions. Differential Diagnosis Differential Diagnoses: The differential diagnosis associated with the presentation includes See MDM Admission/Observation Consideration of admission/observation: Escalation of care including admission/observation considered Consult Healthcare Provider Management of the patient was discussed with: Doughmaker Physical therapy and case management Lab Data Labs: Lab Results 10/27/24 Range/Units 10:33 POC Glucose 352 H* (60-115) mg/dL Independent Interpretation I performed an independent interpretation of an: CT Scan Interpretation: Severe osteoarthritis Radiology Impression Discussion of test interpretation with radiology: I have reviewed the radiologist's reading. Radiologist Impression: Severe left hip osteoarthritis and suspected subchondral insufficiency fracture, age indeterminate, involving the anterosuperior left femoral head. Independent Historian Clinical information obtained from an independent historian. History obtained from or confirmed by: Other (son of patient) Tests considered The following testing was considered but not selected: Would have considered urinalysis or other imaging had patient had any trauma or concerns for infection Prescription Management I considered prescription management with: Pain Medication Chronic Conditions Patient?s care impacted by: Other (PMR) Social Determinants Patient?s care significantly limited by Social Determinants of Health including: Other Social Determinant of Health Discharge Plan Discharge Clinical Impression: Subchondral insufficiency fracture of condyle of left femur with delayed healing, Chronic subluxation of left hip Osteopenia Qualifiers: Osteopenia location: hip Laterality: left Qualified Code(s): M85.852 - Other specified disorders of bone density and structure, left thigh Patient Disposition: Home, Self-Care Additional Instructions: You were seen in the emergency department today due to progressive left-sided hip pain. Instead of repeating an x-ray of her left hip we did a CT of your hip which showed us more bone detail. Results: Severe left hip osteoarthritis and suspected subchondral insufficiency fracture, age indeterminate, involving the anterosuperior left femoral head. This means that your bones breaking down it is not fitting in the socket directly and causing a pain when you ambulate. Is age indeterminate meaning we not sure based on the imaging when this started. You had a physical therapy assessment who recommended going home with a walker and having potential visiting physical therapy our case operator will help set this up. In the interim make sure you coal picker your walker and use it to ambulate at all times. As you have several allergies to medicine I have recommended that you do naproxen twice a day as needed for pain as well as take 650 mg of Tylenol every 4-6 hours for pain but do not exceed 3000 mg in 24 hours. Consider topical therapies such as Biofreeze icy Hot capsaicin or Aspercreme. You can even consider the use of Salonpas or lidocaine patches. Prescriptions: New naproxen 500 mg tablet,delayed release (DR/EC) 500 mg PO BID PRN (Reason: pain (scale score 4-6)) Qty: 30 0RF Rx Instructions: Patient tolerated before (DME) walker Misc See Rx Instructions .Route Qty: 1 0RF Rx Instructions: As directed morphine 15 mg tablet 15 mg PO Q6H PRN (Reason: pain (scale score 7-10)) Qty: 10 0RF Rx Instructions: Partial Fill upon patient request. No Action omeprazole 20 mg capsule,delayed release(DR/EC) 20 mg PO DAILY Qty: 90 3RF atorvastatin 20 mg tablet 20 mg PO DAILY Qty: 90 3RF prednisone 10 mg tablet 10 mg PO DAILY 90 Days Qty: 90 1RF Rx Instructions: or as directed gabapentin 100 mg capsule 100 mg PO BEDTIME Qty: 30 0RF acetaminophen 325 mg capsule 325 mg PO QID PRN (Reason: pain) Qty: 28 0RF cholecalciferol (vitamin D3) 25 mcg (1,000 unit) capsule 25 mcg PO DAILY lisinopril 40 mg tablet 40 mg PO DAILY Tresiba FlexTouch U-100 100 unit/mL (3 mL) insulin pen 15 unit subcut DAILY hydrochlorothiazide 12.5 mg tablet 12.5 mg PO DAILY insulin lispro [Admelog SoloStar U-100 Insulin] 100 unit/mL insulin pen 1 sliding scale dose subcut USEASDIRECTD amlodipine 10 mg tablet 10 mg PO DAILY Qty: 90 3RF alcohol swabs [BD Alcohol Swabs] Pads, Medicated topical (DME) Dexcom G6 Sensor Device See Rx Instructions .ROUTE Q10D Qty: 1 Rx Instructions: As directed (DME) Dexcom G6 Transmitter Device See Rx Instructions .ROUTE DIRECTED Qty: 1 Rx Instructions: As directed (DME) pen needle, diabetic 32 gauge x 5/32 needle See Rx Instructions .ROUTE .MEDSUPPLY Qty: 1200 Rx Instructions: As directed tramadol 50 mg tablet 50 mg PO BEDTIME Qty: 14 0RF baclofen 10 mg tablet 10 mg PO BEDTIME Qty: 20 0RF tadalafil 10 mg tablet 10 mg PO Q OTHER DAY PRN (Reason: sexual activity) Qty: 30 3RF Rx Instructions: administer approximately 30min before sexual activity; do not use more than 1 dose per 24hrs Ref[place]: [facility] [place] Group] - 1 week Referral Note: refer to PT if not able to get VNA Interventions: ED Discharge Assessment Last Done: 10/27/24 16:10 Discharge Date/Time: 10/27/24 16:11 Print Language: Turkmen
--- OUTSIDE RECORDS SUMMARY | 2024-10-27 13:04 | XMS_ITS | Patient Health Record ---
Author Organization [facility] Address [address] [place] [address] Care Team Providers Care Apprenticeship Representative Name Role Phone Radha Barrios MD Primary Care Provider Sunday Yates [phone] Allergies Allergen (clinical drug ingredient) Drug/Non Drug Allergy documented on EMR Reaction Allergy Type Onset Date Status statin? (uncoded) Unknown Allergy Ac tive Reason For Referral No Information Medications Medication SIG (Take, Route, Frequency, Duration) Notes Start Date End Date Status predniSONE 1 MG 1 to 1-05/10 tablet O rally as directed/ tier levell Active NovoLOG 100 UNIT/ML as directed Subcutan eous as directed Active Atorvastatin Calcium 20 MG 1 tablet Oral ly Once a day for 30 day(s) Active Lisinopril 40 MG 1 tablet Orally Once a day for 30 day(s) Active Omeprazole 20 MG 1 capsule Orally Onc e a day for 30 day(s) Active Toujeo Max SoloStar 300 UNIT/ML 20 units as directed Subcutaneous once a day Active amLODIPine Besylate 2.5 MG 1 tablet Oral ly Once a day for 30 day(s) Active Vitamin D 2000 UNIT 1 tablet Orally Once a day for 30 day(s) Active Tresiba FlexTouch 200 UNIT/ML as directed Subcutaneous Act norma Aspir-Low 81 MG 1 tablet Orally Once a day for 30 day(s) Active Social History Tobacco Use: Social History Observation Description Date Details (start date - stop date) Former Smoker NA - NA Tobacco Use/Smoking Question Answer Notes Patient is a former smoker When did you stop smoking? [id number] How long has it been since you last smoked? > 10 years Alcohol Screen Question Answer Notes Did you have a drink contain ing alcohol in the past year? Yes How often did you have a dri nk containing alcohol in the past year? 4 or more times a week (4 points) How many drinks did you have on a typical day when you were drinking in the past year? 1 or 2 drinks (0 point) How often did you have 6 or more drinks on one occasion in the past year? 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) Active confirmed Problem [id number] Positive colorectal cancer screening using Cologuard test (R19.5) Active confirmed Plan Of Treatment Future Test Test Name Order Date COLONOSCOPY 01/22/2019 Insurance Providers Payer Name Payer Address Payer Phone Subscriber Number Group Number Insured Name Patient Relationship to Insured Coverage Start Date Coverage End Date MEDICARE OF [place] [address] [place] [address] [id number] JONATAN SAWYER Self - patient is the insured REPLACED BY [facility] [employer] [address] [place] [address] [id number] JONATAN SAWYER Self - patient is the insured Medical (General) History Medical History History ICD Code IDDM HTN Denies [place],CVA,Lung disease,renal disease IBS GERD---EGD 01/2008-small HH; normal duodenal biopsies, neg. for celiac disease Colonoscopy 01/2008-neg for colitis/poly ps PMR + Cologuard test 2018 Surgical History Surgery Date(Month/Year) Carpal tunnel release bilaterally
--- NOTE | 2024-10-27 14:12 | PC.NURSE ---
No insulin orders at this time per provider PA [place], Provider states this is Pt's baseline.
[2024-10-27 14:26] VITALS: BP 150/67; PULSE 69; RESP 18; TEMP 36.3; O2SAT 97
--- NOTE | 2024-10-27 14:43 | PC.NURSE ---
PT at bedside evaluating pt
[2024-10-27 16:03] VITALS: BP 148/69; PULSE 70; RESP 18; TEMP 36.2; O2SAT 97
[2024-10-27 16:10] VITALS: BP 148/69; PULSE 70; RESP 18; TEMP 36.2; O2SAT 97
--- NOTE | 2024-10-27 18:13 | MHC.CM.ED ---
PT recommended Home PT. Pt was discharged prior to CM assessment. Was given a script for a rollator. CM made broad referral since patient lives in [place]. [facility] offered their services. CM spoke with patient and he accepts. The agency will call him and will follow up with him. They expect to see him Saturday or . F2F was uploaded. Provider aware.
== END 2024-10-27 16:11 | disposition home or self-care (01) ==
PROVIDERS: Emergency Provider Emergency Medicine; PCP Internal Medicine
DX: S72.412A Displaced unspecified condyle fracture of lower end of left femur, initial encounter for closed fracture (principal); S73.002A Unspecified subluxation of left hip, initial encounter; M85.852 Other specified disorders of bone density and structure, left thigh; M25.552 Pain in left hip; R26.2 Difficulty in walking, not elsewhere classified; E11.9 Type 2 diabetes mellitus without complications; X58.XXXA Exposure to other specified factors, initial encounter; Y93.9 Activity, unspecified; Y92.9 Unspecified place or not applicable; Y99.8 Other external cause status; Z79.4 Long term (current) use of insulin; Z87.891 Personal history of nicotine dependence; Z79.899 Other long term (current) drug therapy
CPT/HCPCS: 73700; 82947; 97161; 99284

== ENCOUNTER → 2024-10-27 11:53 | Outpatient (BNV) | payer MEDICARE, OTHER, MEDICAID, SELFPAY | PROVIDERS: Emergency Provider Emergency Medicine; PCP Internal Medicine; Visit Provider Radiology Diagnostic Radiology | DX: M16.12 Unilateral primary osteoarthritis, left hip (principal) | CPT/HCPCS: 73700 ==

== ENCOUNTER 2024-11-13 14:35 | Outpatient (AMB) | payer MEDICARE, OTHER, MEDICAID, SELFPAY ==
--- NOTE | 2024-11-13 14:37 | A.OFFPC_ITS ---
Vital Signs 11/13/24 14:38 Height 6 ft Weight 169 lb 5.04 oz BMI 23.0 BP 110/64 Blood Pressure Location Lt brachial Position Sitting Pulse 103 H Pulse Source Pulse Oximeter Temp 97.0 F Temp Source Temporal Artery Scan Pulse Oximetry (%) 98 Oxygen Delivery Method Room Air Intake Visit Reasons: Sleep and Pain Accompanied by: Spouse Allergies meloxicam Allergy (Unknown, Verified 11/13/24 14:42) Unknown simvastatin Allergy (Unknown, Verified 11/13/24 14:42) Unknown Tobacco use date assessed: 11/13/24 Fall risk assessment: 1 Fall in past year Last assessed Fall Risk: 11/13/24 Dental Screening Dental Screen Date: 11/13/24 Did you have a dental visit in the last 12 months?: Yes Did you have a dental problem in the last 6 months where you did not have access to dental care?: No Was dental information given to patient?: Patient has dentist [facility], [facility] Medical History Osteopenia Erectile dysfunction Type 2 diabetes mellitus with hyperglycemia Polymyalgia rheumatica Thrombocytopenia Hypercholesterolemia GERD (gastroesophageal reflux disease) Carpal tunnel syndrome Diabetic neuropathy Hypertension Surgical History History of carpal tunnel release Family History Father Hypertension CVD (cardiovascular disease) Mother Cancer Social History Housing: House Alcohol intake: current Alcohol intake frequency: 0-2 drinks per day Alcohol type: hard liquor Patient Tobacco Use Status: Former Tobacco user Tobacco use type: Cigarette Years Smoked: quit 2005 e-Cigarette/Vaping Use: Never Used Second Hand Smoke Exposure: Yes service: No Current occupational status: retired Cognitive needs: No Hearing needs: No Vision needs: Yes (Glasses) Questionnaire PHQ-9 Over the last 2 weeks, how often have you been bothered by any of the following problems? 1. Little interest or pleasure in doing things: nearly every day 2. Feeling down, depressed, or hopeless: nearly every day 3. Trouble falling or staying asleep, or sleeping too much: nearly every day 4. Feeling tired or having little energy: nearly every day 5. Poor appetite or overeating: nearly every day 6. Feeling bad about yourself - or that you are a failure or have let yourself or your family down: nearly every day 7. Trouble concentrating on things, such as reading the newspaper or watching television: not at all 8. Moving or speaking so slowly that other people could have noticed. Or the opposite - being so fidgety or restless that you have been moving around a lot more than usual: nearly every day 9. Thoughts that you would be better off or of hurting yourself in some way: not at all Total score: 21 Source: Developed by Drs. Sunday Delgado, Marilyn Kennedy, Marco Caldwell and colleagues, with an educational wendie from [employer]. Thrive Questionnaire Date Thrive assessed: 10/15/24 I am a: Patient What is your living situation today?: I have a steady place to live Within the past 12 months, did the food you bought not last and you didn't have the money to get more?: Never true Within the past 12 months, did you worry whether your food would run out before you got money to buy more?: Never true Do you have trouble paying for medicines?: No Do you have trouble getting transportation to medical appointments?: No Do you have trouble paying your heating and electricity bill?: No Do you have trouble taking care of your child, family member or friend?: No Do you have trouble with day-to-day activities such as bathing, preparing meals, shopping, managing finances, etc.?: No Are you currently unemployed and looking for a job?: No Are you interested in more education?: No Please select the resources that you would like help with: None Currently or been in a relationship where the following occur: No concerns reported THRIVE Score: 0 AUDIT C Alcohol Use Questionnaire (AUDIT-C) 1. How often do you have a drink containing alcohol?: Never 3. How often do you have six or more drinks on one occasion?: Never Total Score: 0 GWYN-7 AMB Questionnaire GWYN-7 Date GWYN - 7 assessed: 05/05/24 Feeling nervous, anxious, or on edge: 1 = Several days Not being able to stop or control worryin = Several days Worrying too much about different things: 1 = Several days Trouble relaxin = Several days Being so restless that it is hard to sit still: 1 = Several days Becoming easily annoyed or irritable: 1 = Several days Feeling afraid as if something awful might happen: 1 = Several days Total GWYN-7 score (0-4 normal; 5-9 mild; 10-14 moderate; 15-21 severe): 7 Source: Developed by Drs. Sunday Delgado, Marilyn Kennedy, Marco Caldwell and colleagues, with an educational wendie from [employer]. Physical exam (Primary Care) Vital Signs: Last Vital Signs Temp 97.0 F 11/13/24 14:38 Pulse 103 H 11/13/24 14:38 BP 110/64 11/13/24 14:38 Pulse Ox 98 11/13/24 14:38 Oxygen Delivery Method Room Air 11/13/24 14:38 BMI result Body Mass Index 23.0 Tobacco/Smoking Status: Tobacco use Status Tobacco use date assessed 11/13/24 11/13/24 14:46 Patient Tobacco Use Status Former Tobacco user 11/13/24 14:37 Tobacco use type Cigarette 11/13/24 14:37 e-Cigarette/Vaping Use Never Used 11/13/24 14:37 PHQ-9: PHQ-9 Score PHQ-9: Total score 21 11/13/24 14:54 Thrive Assessment: Date of Thrive Assessment Date Thrive assessed 10/15/24 11/13/24 14:37 Currently or been in a relationship where the following occur: No concerns reported Const General: alert; No acute distress Eyes Conjunctivae: conjunctivae normal Resp Auscultation: clear to auscultation bilaterally Cardio Rate: regular rate Rhythm: regular rhythm GI Inspection: Yes normal to inspection Extrem General: Yes normal to inspection and No edema Results AMB Hemoglobin A1c AMB Hemoglobin A1c 8.6 % Last Edit by Julia Almodovar CMA on 11/13/24 14:48 Results Reviewed Results Reviewed: Laboratory Last Values Hgb A1c (Clinic) 8.6 % (4.0-6.0) H 11/13/24 14:46 Coding Level of Care Code Est Pt Level 3 (40700) Diagnoses Osteoarthritis of left hip M16.12 Assessment & Plan Assessment & Plan (1) Osteoarthritis of left hip: Comment: October 2024Severe left hip osteoarthritis and suspected subchondral insufficiency fracture, age indeterminate, involving the anterosuperior left femoral head. Code(s): M16.12 - Unilateral primary osteoarthritis, left hip Category: Medical Plan: CT scan October 2024Severe left hip osteoarthritis and suspected subchondral insufficiency fracture, age indeterminate, involving the anterosuperior left femoral head. Patient has tried tramadol with no help, tried clonazepam which help for a few days discussed about narcotic pain medications and the side effects and patient is aware. Patient does have follow-up with orthopedics on the 23 of November. Plan History of Present Illness The patient is an 79-year-old male presenting with complaints of insomnia due to a femoral fracture. The patient has a history of diabetes mellitus, hypertension, hypercholesterolemia, and polymyalgia rheumatica. He was last seen on October 15, 2024, and is currently experiencing sleep disturbances attributed to a femoral fracture. The patient reports severe left hip pain, which led to an emergency room visit due to left-sided leg pain. A CT scan conducted in October 2024 revealed severe le ft hip osteoarthritis and a chondral insufficiency fracture of the anterior superior left femoral head. Additionally, mild sacroiliac joint arthritis was noted. Health Maintenance Social History Review of Systems - General: Reports insomnia due to femoral fracture - Musculoskeletal: Reports severe left hip pain Physical Exam Results - Imaging: CT scan in October 2024 showed severe left hip osteoarthritis and a chondral insufficiency fracture of the anterior superior left femoral head. - Imaging: Mild sacroiliac joint arthritis noted. Plan The patient was provided tramadol to manage pain associated with the femoral fracture and severe left hip osteoarthritis. Additionally, clonazepam was administered by the patient's to aid with sleep disturbances. Further evaluation and management of the severe left hip osteoarthritis and chondral insufficiency fracture are necessary, potentially involving orthopedic consultation. Patient was informed and verbally consented to the use of an ambient scribe for clinic note documentation during this visit. Discussion Notes Patient Instructions Orders: Orders AMB Hemoglobin A1c Today Z13.9 - Encounter for screening, unspecified Medications: New oxycodone Partial Fill upon patient request. 5 mg PO .QD PRN 7 tabs 0RF pain M16.12 - Unilateral primary osteoarthritis, left hip
[2024-11-13 14:38] VITALS: BP 110/64; PULSE 103; TEMP 36.1; O2SAT 98; BMI 23.0
--- OUTSIDE RECORDS SUMMARY | 2024-11-13 14:38 | XMS_ITS | Patient Health Record ---
Author Organization [facility] Address [address] [place] [address] Care Team Providers Care Commercial Journeyman Electrician Name Role Phone Radha Barrios MD Primary Care Provider Sunday Yates [phone] Allergies Allergen (clinical drug ingredient) Drug/Non Drug [...] former smoker When did you stop smoking? 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) Active confirmed Problem [id number] Positive colorectal cancer screening using Cologuard test (R19.5) Active confirmed Plan Of Treatment Future Test Test Name Order Date COLONOSCOPY 01/22/2019 Insurance Providers Payer Name Payer Address Payer Phone Subscriber Number Group Number Insured Name Patient Relationship to Insured Coverage Start Date Coverage End Date MEDICARE OF [place] [address] [place] [address] [id number] JONATAN SAWYER Self - patient is the insured [facility] INDEMNITY [address] [place] [address] [id number] JONATAN SAWYER Self - patient is the insured Medical (General) History Medical History History ICD Code IDDM HTN Denies [place],CVA,Lung disease,renal disease IBS GERD---EGD 01/2008-small HH; normal duodenal biopsies, neg. for celiac disease Colonoscopy 01/2008-neg for colitis/poly ps PMR + Cologuard test 2018 Surgical History Surgery Date(Month/Year) Carpal tunnel release bilaterally
--- OUTSIDE RECORDS SUMMARY | 2024-11-13 14:38 | XMS_ITS ---
Author Organization Unknown ENCOUNTERS Encounter Performer Location Date Diagnosis Diagnosis Status Emergency [facility] [address] [place] [id number] BEATRIZ Pre Admit Generic ED Physician [facility] [address] [place] [address] [id number] Emergency [facility] [address] [place] [id number] BEATRIZ [facility] [address] [address] [id number] BEATRIZ *Note: Encounters from your own facility or health system may be excluded. Allergies, Adverse Reactions, Alerts Allergen Type Severity Identification Date meloxicam drug allergy 3 [id number] simvastatin drug allergy 3 [id number] Medications Name Date Quantity Days Supplied GPI Number
--- OUTSIDE RECORDS SUMMARY | 2024-11-13 14:38 | XMS_ITS | Encounter Summary ---
Author Organization [facility] Address [address] [place] [address] Phone Care Team Providers Care Postdoctoral Scientist Name Role Phone Radha Barrios MD Unavailable [phone] Chela Hernandez MD Unavailable [phone] Nae Leiva MD Unavailable [phone] Radha Barrios MD Primary Care Provider [phone] Encounter Details Date Type Department Care Team (Late st Contact Info) Description 05/28/2017 Prep for Surgery [facility] Orthopedics & Sports Medicine [address] [place] [id number] Nae Leiva MD [address] [place] [address] Orthopedics & Sports Medicine, [facility] [place] [address] juan [email or web address] Social History Tobacco Use Types Packs/Day Years Used Date Smoking Tobacco: Former Cigarettes Q uit: 01/26/2006 Smokeless Tobacco: Never Alcohol Use Standard Drinks/Week Comments Yes 0 (1 standard drink = 0.6 oz pur e alcohol) daily 2 drinks with supper Sex and Gender Information Value Date Recorded Sex Assigned at Not on file Legal Sex Male 10:38 PM EDT Gender Identity Not on file Sexual Orientation Not on file documented as of this encounter Plan of Treatment Not on file documented as of this encounter Visit Diagnoses Not on filedocumented in this encounter Care Teams Postdoctoral Scientist Relationship Specialty Start Date End Date Radha Barrios MD [address] [place] [phone] PCP - General Internal Medicine 02/22/17 Radha Barrios MD [address] [place] [address] Historical LMR Provider 02/16/17 2 Chela Hernandez MD [address] [facility] Orthopedics & Sports Medicine, [facility]. [place], [place] [phone] Historical LMR Provider 02/16/17 Nae Leiva MD [address] [facility] Orthopedics Sports [facility], [place], [place] [phone] juan Historical LMR Provider 02/16/17 05/06/21 documented as of this encounter Additional Source Comments The information contained in this document represents components of the legal health record. It is not the complete legal health record.[facility]
--- OUTSIDE RECORDS SUMMARY | 2024-12-25 20:00 | XMS_ITS | Clinical Summary ---
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 10-28 00:00: 00 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 SYSTEMIC STEROIDS Active 10-28 00:00: 00 [facility] (CURRENT) USE OF OPIATE ANALGESIC Active 10-28 [...] 10-27 00:00: 00 10-28 00:00 :00 No [id number] Per instruc tions Per instructio ns (route: oral) Med Classific ation: Analgesic , Anti-infl ammatory or Antipyret ic Dexcom G6 Sensor device 10-26 00:00: 00 10-28 00:00 :00 No [id number] Unavailable Per instruc tions Per instructio ns (route: miscellane ous) Med Classific ation: Medical Supplies and Durable Medical Equipment (DME) gabapentin 100 mg capsule 10-21 00:00: 00 10-28 00:00 :00 No [id number] Per instruc tions Per instructio ns (route: oral) Med Classific ation: Central Nervous System Agents amlodipine 10 mg tablet 10-19 00:00: 00 10-28 00:00 :00 No [id number] ESSENTIAL (PRIMARY) HYPERTENSIO N Per instruc tions DAILY Per instructio ns DAILY (route: oral) Med Classific ation: Cardiovas cular Therapy Agents Carin 2nd Gen Pen Needle 32 gauge x 5/32 10-19 00:00: 00 10-28 00:00 :00 No [id number] Per instruc tions INSULIN 5 TIMES DAILY Per instructio ns INSULIN 5 TIMES DAILY (route: miscellane ous) Med Classific ation: Medical Supplies and Durable Medical Equipment (DME) lisinopril 40 mg tablet 10-19 00:00: 00 10-28 00:00 :00 No [id number] ESSENTIAL (PRIMARY) HYPERTENSIO N Per instruc tions DAILY Per instructio ns DAILY (route: oral) Med Classific ation: Cardiovas cular Therapy Agents baclofen 10 mg tablet 10-15 00:00: 00 10-28 00:00 :00 No [id number] Per instruc tions Per instructio ns (route: oral) Med Classific ation: Locomotor System tramadol 50 mg tablet 10-15 00:00: 00 10-28 00:00 :00 No [id number] Per instruc tions Per instructio ns (route: oral) Med Classific ation: Analgesic , Anti-infl ammatory or Antipyret ic amoxicillin 875 mg tablet 10-13 00:00: 00 10-28 00:00 :00 No [id number] Per instruc tions Per instructio ns (route: oral) Med Classific ation: Anti-Infe ctive Agents chlorhexidi ne gluconate 0.12 % mouthwash 10-13 00:00: 00 10-28 00:00 :00 No [id number] Per instruc tions Per instructio ns (route: mucous membrane) Med Classific ation: Mouth-Thr oat-Denta l - Preparati ons cyclobenzap rine 10 mg tablet 13 00:00: 00 10-28 00:00 :00 No [id number] Per instruc tions Per instructio ns (route: oral) Med Classific ation: Locomotor System tadalafil 10 mg tablet 10-08 00:00: 00 10-28 00:00 :00 No [id number] MALE ERECTILE DYSFUNCTION , UNSPECIFIED Per instruc tions EVERY OTHER DAY NEEDED FOR SEXUAL ACTIVITY APPROXIMAT GONZALEZ 30 MINUTES PER 24 HOURS Per instructio ns EVERY OTHER DAY NEEDED FOR SEXUAL ACTIVITY APPROXIMAT GONZALEZ 30 MINUTES PER 24 HOURS (route: oral) Med Classific ation: Drugs to treat Erectile Dysfuncti on Ketostix strips 10-05 00:00: 00 10-28 00:00 :00 No [id number] 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 Per instruc tions AND DISCARD 1 TEST STRIP EVERY DAY NEEDED Per instructio ns AND DISCARD 1 TEST STRIP EVERY DAY NEEDED (route: miscellane ous) Med Classific ation: Medical Supplies and Durable Medical Equipment (DME) acetaminoph en 325 mg tablet 10-28 00:00: 00 Yes [id number] PAIN 2 tablet EVERY 4 HOURS 2 tablet EVERY 4 HOURS (route: oral) Med Classific ation: Analgesic , Anti-infl ammatory or Antipyret ic amlodipine 10 mg tablet 10-28 00:00: 00 Yes [id number] LOWERS BLOOD PRESSURE 1 tablet DAILY 1 tablet DAILY (route: oral) Med Classific ation: Cardiovas cular Therapy Agents atorvastati n 20 mg tablet 10-28 00:00: 00 Yes [id number] LOWERS CHOLESTEROL 1 tablet DAILY 1 tablet DAILY (route: oral) Med Classific ation: Cardiovas cular Therapy Agents cholecalcif swapna (vitamin D3) 25 mcg (1,000 unit) tablet 10-28 00:00: 00 Yes [id number] SUPPLEMENT 1 tablet DAILY 1 tablet DAILY (route: oral) Med Classific ation: Electroly te Balance-N utritiona l Products gabapentin 100 mg tablet 10-28 00:00: 00 Yes [id number] PAIN MANAGEMENT 1 tablet BEDTIME 1 tablet BEDTIME (route: oral) Med Classific ation: Central Nervous System Agents hydrochloro thiazide 12.5 mg tablet 10-28 00:00: 00 Yes [id number] FLUID RETENTION 1 tablet DAILY 1 tablet DAILY (route: oral) Med Classific ation: Cardiovas cular Therapy Agents insulin lispro (U-100) 100 unit/mL subcutaneou s pen 10-28 00:00: 00 Yes [id number] DIABETES Per instruc tions WITH MEALS Per instructio ns WITH MEALS (route: subcutaneo ) Med Classific ation: Endocrine lisinopril 40 mg tablet 10-28 00:00: 00 Yes [id number] LOWERS BLOOD PRESSURE 1 tablet DAILY 1 tablet DAILY (route: oral) Med Classific ation: Cardiovas cular Therapy Agents morphine 15 mg immediate release tablet 10-28 00:00: 00 Yes [id number] MODERATE PAIN 1 tablet EVERY 6 HOURS 1 tablet EVERY 6 HOURS (route: oral) Med Classific ation: Analgesic , Anti-infl ammatory or Antipyret ic omeprazole 20 mg capsule,del ayed release 10-28 00:00: 00 Yes [id number] GERD 1 capsule DAILY 1 capsule DAILY (route: oral) Med Classific ation: Gastroint estinal Therapy Agents prednisone 10 mg tablet 10-28 00:00: 00 Yes [id number] POLYMYALGIA 1 tablet DAILY 1 tablet DAILY (route: oral) Med Classific ation: Endocrine Tresiba FlexTouch U-100 insulin 100 unit/mL (3 mL) subcutaneou s pen 10-28 00:00: 00 Yes [id number] DIABETES 15 unit BEDTIME 15 unit BEDTIME (route: subcutaneo us) Med Classific ation: Endocrine naproxen 500 mg tablet 10-28 00:00: 00 Yes [id number] PAIN 1 tablet 2 TIMES DAILY 1 tablet 2 TIMES DAILY (route: oral) Med Classific ation: Analgesic , Anti-infl ammatory or Antipyret ic Vital Signs Vital Name Observation Time Observation Value Commen ts Temperature 2024-11-10 09:45:00.000 98.3 [degF] Temperature 2024-11-09 10:20:00.000 97.6 [degF] Temperature 2024-11-04 09:12:00.000 97.3 [degF] Temperature 2024-11-03 20:08:00.000 97.7 [degF] Temperature 2024-10-28 13:29:00.000 97.7 [degF] BMI (%) 2024-10-28 13:04:14.000 23 kg/m2 Height 2024-10-28 13:02:16.000 72 [in_us] Pulse 2024-11-10 09:45:00.000 89 /min Pulse 2024-11-09 10:20:00.000 78 /min Pulse 2024-11-04 09:12:00.000 91 /min Pulse 2024-11-03 20:08:00.000 97 /min Pulse 2024-10-28 13:29:00.000 96 /min O2 Saturation (%) 2024-11-10 09:45:00.000 99 % O2 Saturation (%) 2024-11-04 09:12:00.000 97 % O2 Saturation (%) 2024-11-03 20:08:00.000 98 % O2 Saturation (%) 2024-10-28 13:29:00.000 97 % Respirations 2024-11-10 09:45:00.000 18 /min Respirations 2024-11-09 10:20:00.000 18 /min Respirations 2024-11-04 09:12:00.000 18 /min Respirations 2024-11-03 20:08:00.000 18 /min Respirations 2024-10-28 13:29:00.000 18 /min Weight (lbs) 2024-10-28 13:04:14.000 170 [lb_av] Systolic Blood Pressure 2024-11-10 09:45:00.000 110 mm [Hg] Systolic Blood Pressure 2024-11-09 10:20:00.000 110 mm [Hg] Systolic Blood Pressure 2024-11-04 09:12:00.000 118 mm [Hg] Systolic Blood Pressure 2024-11-03 20:08:00.000 116 mm [Hg] Systolic Blood Pressure 2024-10-28 13:29:00.000 126 mm [Hg] Diastolic Blood Pressure 2024-11-10 09:45:00.000 [...] CONSULTING PHYSICIANS. RN TO OBSERVE AND ASSESS, INDUSTRIAL INSULATOR/TANK PROCESSOR TO OBSERVE FOR RISK FOR FALLS AND INSTRUCT IN FALL PREVENTION, HOME SAFETY, MEDICATION MANAGEMENT, INFECTION PREVENTION, AND NUTRITION MANAGEMENT. RN/INDUSTRIAL INSULATOR/TANK PROCESSOR NURSE MAY PERFORM O2 SATURATION LEVEL ON ADMISSION AND PRN FOR RN TO ASSESS/INDUSTRIAL INSULATOR TO OBSERVE PATIENT, WITH NOTIFICATION TO THE PHYSICIAN IF SATURATION IS 90% IN THE ABSENCE OF MORE SPECIFIC PARAMETERS FROM THE PHYSICIAN. AGENCY MAY PERFORM A RESUMPTION OF CARE VISIT FOLLOWING ANY HOSPITAL ADMISSION. RN/INDUSTRIAL INSULATOR/TANK PROCESSOR TO MONITOR CO-MORBID CONDITIONS LISTED ON THE PLAN OF CARE AND ANY NEW CONDITIONS THAT PRESENT THEMSELVES DURING THIS EPISODE TO IDENTIFY CHANGES AND INTERVENE TO MINIMIZE COMPLICATIONS. [code = RN TO OBSERVE, ASSESS, EVALUATE, AND DEVELOP AN INDIVIDUALIZED PLAN OF CARE. AGENCY MAY ACCEPT ORDERS FROM CONSULTING PHYSICIANS. RN TO OBSERVE AND ASSESS, INDUSTRIAL INSULATOR/TANK PROCESSOR TO OBSERVE FOR RISK FOR FALLS AND INSTRUCT IN FALL PREVENTION, HOME SAFETY, MEDICATION MANAGEMENT, INFECTION PREVENTION, AND NUTRITION MANAGEMENT. RN/INDUSTRIAL INSULATOR/TANK PROCESSOR NURSE MAY PERFORM O2 SATURATION LEVEL ON ADMISSION AND PRN FOR RN TO ASSESS/INDUSTRIAL INSULATOR TO OBSERVE PATIENT, WITH NOTIFICATION TO THE PHYSICIAN IF SATURATION IS 90% IN THE ABSENCE OF MORE SPECIFIC PARAMETERS FROM THE PHYSICIAN. AGENCY MAY PERFORM A RESUMPTION OF CARE VISIT FOLLOWING ANY HOSPITAL ADMISSION. RN/INDUSTRIAL INSULATOR/TANK PROCESSOR TO MONITOR CO-MORBID CONDITIONS LISTED ON THE PLAN OF CARE AND ANY NEW CONDITIONS THAT PRESENT THEMSELVES DURING THIS EPISODE TO IDENTIFY CHANGES AND INTERVENE TO MINIMIZE COMPLICATIONS.] Future Scheduled Test MEDICATION MANAGEMENT; RN/INDUSTRIAL INSULATOR/TANK PROCESSOR TO REVIEW MEDICATIONS FOR INTERACTIONS, EFFECTIVENESS OF DRUG THERAPY, AND SIGNS/SYMPTOMS OF ADVERSE REACTIONS. MAY INSTRUCT AND REINFORCE MEDICATION TEACHING RELATED TO THE USE OF MEDICATIONS, DOSAGE, FREQUENCY, PURPOSE, SIDE EFFECTS, AND TO REPORT COMPLICATIONS. [code = MEDICATION MANAGEMENT; RN/INDUSTRIAL INSULATOR/TANK PROCESSOR TO REVIEW MEDICATIONS FOR INTERACTIONS, EFFECTIVENESS OF DRUG THERAPY, AND SIGNS/SYMPTOMS OF ADVERSE REACTIONS. MAY INSTRUCT AND REINFORCE MEDICATION TEACHING RELATED TO THE USE OF MEDICATIONS, DOSAGE, FREQUENCY, PURPOSE, SIDE EFFECTS, AND TO REPORT COMPLICATIONS.] Future Scheduled Test RISK FOR H OSPITALIZATION; RN TO ASSESS/TEACH, TANK PROCESSOR/INDUSTRIAL INSULATOR TO OBSERVE/TEACH PATIENT/CAREGIVER ON RISK FOR HOSPITALIZATION/EMERGENCY ROOM VISITS, TEACH SIGNS AND SYMPTOMS THAT PUT PATIENT AT RISK, WHEN TO NOTIFY NURSE/PHYSICIAN OF COMPLICATIONS/DECLINE, AND WHEN TO CALL 911. [code = RISK FOR HOSPITALIZATION; RN TO ASSESS/TEACH, TANK PROCESSOR/INDUSTRIAL INSULATOR TO OBSERVE/TEACH PATIENT/CAREGIVER ON RISK FOR HOSPITALIZATION/EMERGENCY ROOM VISITS, TEACH SIGNS AND SYMPTOMS THAT PUT PATIENT AT RISK, WHEN TO NOTIFY NURSE/PHYSICIAN OF COMPLICATIONS/DECLINE, AND WHEN TO CALL 911.] Future Scheduled Test PAIN MANAG EMENT; RN TO ASSESS AND TEACH, TANK PROCESSOR/INDUSTRIAL INSULATOR TO OBSERVE AND TEACH AND PROVIDE EDUCATION ON PAIN MANAGEMENT TECHNIQUES. [code = PAIN MANAGEMENT; RN TO ASSESS AND TEACH, TANK PROCESSOR/INDUSTRIAL INSULATOR TO OBSERVE AND TEACH AND PROVIDE EDUCATION ON PAIN MANAGEMENT TECHNIQUES.] Future Scheduled Test DIABETES M ANAGEMENT; RN TO ASSESS AND TEACH, TANK PROCESSOR/INDUSTRIAL INSULATOR TO OBSERVE AND TEACH INSTRUCTIONS OF DIABETIC CARE TO INCLUDE: DIET DIABETIC, SKIN CARE, SIGNS AND SYMPTOMS OF HYPO/HYPERGLYCEMIA, PROPER ADMINISTRATION OF DIABETIC MEDICATION. RN/TANK PROCESSOR/INDUSTRIAL INSULATOR TO INSTRUCT ON DIABETIC FOOT CARE AND MONITOR FOR SKIN LESIONS ON LOWER EXTREMITIES. BLOOD GLUCOSE TESTING 3 TIMES DAILY. RN TO ASSESS AND TEACH, TANK PROCESSOR/INDUSTRIAL INSULATOR TO OBSERVE AND TEACH PATIENT/CAREGIVER ABILITY TO PERFORM AND RECORD BLOOD GLUCOSE TESTING ORDERED AND TO REPORT ABNORMAL FINDINGS TO PHYSICIAN. RN/TANK PROCESSOR/INDUSTRIAL INSULATOR MAY PERFORM BLOOD GLUCOSE TEST NEEDED. RN/TANK PROCESSOR/INDUSTRIAL INSULATOR TO REPORT TO PHYSICIAN BLOOD GLUCOSE READINGS GREATER THAN 350 OR LESS THAN 70. RN/TANK PROCESSOR/INDUSTRIAL INSULATOR TO INSTRUCT PATIENT ON IMPORTANCE OF HGBA1C MONITORING, KIDNEY FUNCTION TEST, EYE AND FOOT EXAMS. [code = DIABETES MANAGEMENT; RN TO ASSESS AND TEACH, TANK PROCESSOR/INDUSTRIAL INSULATOR TO OBSERVE AND TEACH INSTRUCTIONS OF DIABETIC CARE TO INCLUDE: DIET DIABETIC, SKIN CARE, SIGNS AND SYMPTOMS OF HYPO/HYPERGLYCEMIA, PROPER ADMINISTRATION OF DIABETIC MEDICATION. RN/TANK PROCESSOR/INDUSTRIAL INSULATOR TO INSTRUCT ON DIABETIC FOOT CARE AND MONITOR FOR SKIN LESIONS ON LOWER EXTREMITIES. BLOOD GLUCOSE TESTING 3 TIMES DAILY. RN TO ASSESS AND TEACH, TANK PROCESSOR/INDUSTRIAL INSULATOR TO OBSERVE AND TEACH PATIENT/CAREGIVER ABILITY TO PERFORM AND RECORD BLOOD GLUCOSE TESTING ORDERED AND TO REPORT ABNORMAL FINDINGS TO PHYSICIAN. RN/TANK PROCESSOR/INDUSTRIAL INSULATOR MAY PERFORM BLOOD GLUCOSE TEST NEEDED. RN/TANK PROCESSOR/INDUSTRIAL INSULATOR TO REPORT TO PHYSICIAN BLOOD GLUCOSE READINGS GREATER THAN 350 OR LESS THAN 70. RN/TANK PROCESSOR/INDUSTRIAL INSULATOR TO INSTRUCT PATIENT ON IMPORTANCE OF HGBA1C MONITORING, KIDNEY FUNCTION TEST, EYE AND FOOT EXAMS.] Future Scheduled Test FALL REDUC TION MANAGEMENT; RN TO ASSESS AND OBSERVE, INDUSTRIAL INSULATOR/TANK PROCESSOR TO OBSERVE FALL RISK FACTORS AND EDUCATE PATIENT/CAREGIVER ON STRATEGIES TO MINIMIZE THE RISK OF FALLING. [code = FALL REDUCTION MANAGEMENT; RN TO ASSESS AND OBSERVE, INDUSTRIAL INSULATOR/TANK PROCESSOR TO OBSERVE FALL RISK FACTORS AND EDUCATE PATIENT/CAREGIVER ON STRATEGIES TO MINIMIZE THE RISK OF FALLING.] Goal Patient Goal - T O WALK WITHOUT WALKER. TO IMPROVE PAIN. Goal Provider Goal - A PLAN OF CARE WILL BE ESTABLISHED THAT MEETS THE PATIENTS NEEDS. PATIENT WILL DEMONSTRATE OXYGEN SATURATION WITHIN NORMAL LIMITS OR PATIENTS OPTIMAL LEVEL ESTABLISHED BY THE PHYSICIAN THROUGHOUT [...] AND LIFE-STYLE CHANGES BY END OF EPISODE. Encounters Start Date/Time End Date/Time Encounter Type Admission Type Attending [facility] Department Encounter ID Discharge Date Discharge Status Discharge Condition Discharge Reason Percent Goals Met 2024-10-28 00:00:00 2024-12-26 00:00:00 Outpatient NEW ADMISSION ALLY NAIR [facility] [id number] 18.18
== END 2024-11-13 15:11 | disposition home or self-care (01) ==
LOC: HO.HMCH 14:36
PROVIDERS: PCP Internal Medicine; Visit Provider Internal Medicine
DX: M16.12 Unilateral primary osteoarthritis, left hip (principal); Z13.9 Encounter for screening, unspecified

== ENCOUNTER → 2024-11-13 14:35 | Outpatient (BNVA) | payer MEDICARE, OTHER, MEDICAID, SELFPAY | PROVIDERS: PCP Internal Medicine; Visit Provider Internal Medicine | DX: M16.12 Unilateral primary osteoarthritis, left hip (principal); E11.9 Type 2 diabetes mellitus without complications | CPT/HCPCS: 83036; 99212 ==

== ENCOUNTER → 2024-11-16 23:59 | Outpatient (BNV) | payer MEDICARE, OTHER, MEDICAID, SELFPAY | PROVIDERS: PCP Internal Medicine; Visit Provider Internal Medicine | DX: M16.12 Unilateral primary osteoarthritis, left hip (principal); I10 Essential (primary) hypertension; M35.3 Polymyalgia rheumatica | CPT/HCPCS: G0180 ==

== ENCOUNTER 2024-11-25 13:03 | Outpatient (AMB) | payer MEDICARE, OTHER, MEDICAID, SELFPAY ==
--- NOTE | 2024-11-25 13:07 | MHC.OFFVIS ---
Vital Signs 11/25/24 13:08 Height 6 ft Weight 169 lb BMI 22.9 Intake Visit Reasons: ED f/u-Lt hip pain Intake Note: Maksim is an 79 year old male who presents today for an ER follow up of left hip pain. Patient was seen at [facility], where x-rays and a CT scan was performed. Patient reports pain located at the posterior aspect of the hip, radiating down to his shins. He also complains of occasional sharp pains. He has been performing at home exercises with the help of a physical therapist with no improvement. He is currently taking oxycodone and Naproxen that provides him with relief. CT/CT hip LT wo IV con IMPRESSION: Severe left hip osteoarthritis and suspected subchondral insufficiency fracture, age indeterminate, involving the anterosuperior left femoral head. Left SI joint: Mild osteoarthritis. Allergies meloxicam Allergy (Unknown, Verified 11/25/24 13:23) Unknown simvastatin Allergy (Unknown, Verified 11/25/24 13:23) Unknown HPI HPI ED f/u-Lt hip pain: Details: 79 yo male presents to the office today accompanied by his for pain in the left hip. He was referred by his PCP, Dr Barrios for left hip pain. He staes prior to 10/07/24 , he developed worsening left hip pain. He does recall doing mulch in his yard and that was painful. He states on 10/16 he had Xrays at the hospital and he was walking fine, but later that day he noticed the pain worsening and his ability to walk was limited. He ambulates with a walker at this time. Since then, he has had another visit to the ED and his PCP, most recent dated 11/13/24. CT scan of the left hip was also performed which confirmed collapse of the left femoral head. He is a Type ! diabetic and his sugars are well controlled He states he does have Cholesterol and HTN which are well controlled with medication. He is on Prednisone 10mg daily, x 10 years for PMR. DXA scan in 2019 did show a T score of -2.2, he was on alendronate, but has since DC. He has a smoking hisotry of 40 yrs, quit in 2005. Occasional alcohol use with dinner. [facility] Medical History Osteopenia Erectile dysfunction Type 2 diabetes mellitus with hyperglycemia Polymyalgia rheumatica Thrombocytopenia Hypercholesterolemia GERD (gastroesophageal reflux disease) Carpal tunnel syndrome Diabetic neuropathy Hypertension Surgical History History of carpal tunnel release Family History Father Hypertension CVD (cardiovascular disease) Mother Cancer Social History Housing: House Alcohol intake: current Alcohol intake frequency: 0-2 drinks per day Alcohol type: hard liquor Patient Tobacco Use Status: Former Tobacco user Tobacco use type: Cigarette Years Smoked: quit 2005 e-Cigarette/Vaping Use: Never Used Second Hand Smoke Exposure: Yes service: No Current occupational status: retired Cognitive needs: No Hearing needs: No Vision needs: Yes (Glasses) Review of Systems Const All systems reviewed & are unremarkable except as noted in HPI and below Physical Exam Vital Signs: BMI result Body Mass Index 22.9 Const General: cooperative and no acute distress Orientation/consciousness: patient oriented x3 Resp Effort & Inspection: normal respiratory effort and able to speak in complete sentences Cardio Peripheral pulses: Peripheral pulses 2+ throughout Neuro General: patient oriented x3 Extrem Other: Patient ambulates with a walker with a severely antalgic gait pattern. Limited motion with internal external rotation of the hip. Results Reviewed Results Reviewed: XR hip BI w PEL1V 10/16/24 IMPRESSION: 1. No acute bony abnormalities. 2. Mild to moderate degenerative arthritis LEFT hip joint. 3. Mild degenerative arthritis RIGHT hip joint. CT hip LT wo IV con 10/27/24 IMPRESSION: Severe left hip osteoarthritis and suspected subchondral insufficiency fracture, age indeterminate, involving the anterosuperior left femoral head. Left SI joint: Mild osteoarthritis. Assessment & Plan Assessment & Plan (1) Avascular necrosis of left femoral head: Code(s): M87.052 - Idiopathic aseptic necrosis of left femur Category: Medical Plan I discussed with the patient the extent of his imaging studies and explained the likelihood his chronic steroid use has caused some insufficiency along the femoral head of the left hip. I encouraged him to continue ambulating with a walker for safety. I did explain there can be a potential risk of fracture with insufficient to the femoral head. I explained to the patient potential treatment options for this condition would likely be a total hip arthroplasty which would help improve his functional capacity. The patient did express understanding stating he is significantly limited and can not perform daily activities or even ambulate long distances without pain. I did have him make an appointment with Dr. Dexter to discuss this further. All questions were answered today. Coding Level of Care Code New Pt Level 4 (10797) Complex EM visit Add On G2211 Diagnoses Avascular necrosis of left femoral head M87.052
[2024-11-25 13:08] VITALS: BMI 22.9
--- OUTSIDE RECORDS SUMMARY | 2024-11-25 13:39 | XMS_ITS | Patient Health Record ---
Author Organization [facility] Address [address] [place] [address] Care Team Providers Care Glassware Maker Demonstrator Name Role Phone Radha Barrios MD Primary Care Provider Sunday Yates [phone] Allergies Allergen (clinical drug ingredient) Drug/Non Drug [...] former smoker When did you stop smoking? 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) Active confirmed Problem [id number] Positive colorectal cancer screening using Cologuard test (R19.5) Active confirmed Plan Of Treatment Future Test Test Name Order Date COLONOSCOPY 01/22/2019 Insurance Providers Payer Name Payer Address Payer Phone Subscriber Number Group Number Insured Name Patient Relationship to Insured Coverage Start Date Coverage End Date MEDICARE OF [place] [address] [place] [address] [phone] [id number] JONATAN SAWYER Self - patient is the insured [facility] INDEMNITY [address] [place] [address] [id number] JONATAN SAWYER Self - patient is the insured Medical (General) History Medical History History ICD Code IDDM HTN Denies [place],CVA,Lung disease,renal disease IBS GERD---EGD 01/2008-small HH; normal duodenal biopsies, neg. for celiac disease Colonoscopy 01/2008-neg for colitis/poly ps PMR + Cologuard test 2018 Surgical History Surgery Date(Month/Year) Carpal tunnel release bilaterally
--- OUTSIDE RECORDS SUMMARY | 2024-11-25 13:39 | XMS_ITS | Encounter Summary ---
Author Organization [facility] Address [address] [place] [address] Phone Care Team Providers Care Commanding Officer Garage Name Role Phone Radha Barrios MD Unavailable [phone] Chela Hernandez MD Unavailable [phone] Nae Leiva MD Unavailable [phone] Radha Barrios MD Primary Care Provider [phone] Encounter Details Date Type Department Care Team (Late st Contact Info) Description 05/28/2017 Prep for Surgery [facility] Orthopedics & Sports Medicine [address] [place] [address] [phone] Nae Leiva MD [address] [place] [address] Orthopedics & Sports Medicine, [facility] [place] [address] juan [email or web address] Social History Tobacco Use Types Packs/Day Years [...] on filedocumented in this encounter Care Teams Commanding Officer Garage Relationship Specialty Start Date End Date Radha Barrios MD [address] [place] [phone] PCP - General Internal Medicine 02/22/17 Radha Barrios MD [address] [place] [phone] Historical LMR Provider 02/16/17 2 Chela Hernandez MD [address] [facility] Orthopedics & Sports Medicine, [facility] [place], [place] [phone] Historical LMR Provider 02/16/17 Nae Leiva MD [address] [facility] Orthopedics Sports [facility], [place], [place] [id number] juan Historical LMR Provider 02/16/17 05/06/21 documented as of this encounter Additional Source Comments The information contained in this document represents components of the legal health record. It is not the complete legal health record.[facility]
== END 2024-11-25 13:47 | disposition home or self-care (01) ==
LOC: HO.HOS 13:04
PROVIDERS: PCP Internal Medicine; Visit Provider Physician Assistant
DX: M87.052 Idiopathic aseptic necrosis of left femur (principal)
CPT/HCPCS: 99204; G2211

== ENCOUNTER → 2024-11-25 13:03 | Outpatient (BNVA) | payer MEDICARE, OTHER, MEDICAID, SELFPAY | PROVIDERS: PCP Internal Medicine; Visit Provider Physician Assistant | DX: M87.052 Idiopathic aseptic necrosis of left femur (principal) | CPT/HCPCS: 99202 ==

== ENCOUNTER 2024-12-10 10:09 | Outpatient (AMB) | payer MEDICARE, OTHER, MEDICAID, SELFPAY ==
--- NOTE | 2024-12-10 10:27 | A.OFFVIS_ITS ---
Intake Visit Reasons: OV - Left Hip AVN - Discuss GAYLE Intake Note: Maksim is an 79 year old male who presents today for a follow up of his Left Hip Avascular Necrosis to discuss possible Left GAYLE. He was last seen with José Cartagena where he reports chronic steroid use. His pain has worsened over the last two months and is affecting his ability to walk. He uses a walker at this time. Allergies meloxicam Allergy (Unknown, Verified 11/25/24 13:23) Unknown simvastatin Allergy (Unknown, Verified 11/25/24 13:23) Unknown HPI HPI OV - Left Hip AVN - Discuss GAYLE: Details: Maksim is an 79 year old male who presents today for a follow up of his Left Hip to discuss possible Left GAYLE. He was last seen with Rajinder Cartagena where he reports chronic steroid use for his PMR. He has stopped taking steroids as his PMR has been under control His hip pain has worsened over the last two months and is affecting his ability to walk. He uses a walker at this time. Three months ago he was able to walk without an assistive device. He describes pain radiating down to his foot which includes a burning quality. He describes pain pain and pain extending from his posterolateral hip down his thigh and into his foot. He notes that his left leg is externally rotated compared to his left. He does have groin pain but it is intermittent. He has difficulty sleeping and navigating his daily activities. [facility] Medical History Osteopenia Erectile dysfunction Type 2 diabetes mellitus with hyperglycemia Polymyalgia rheumatica Thrombocytopenia Hypercholesterolemia GERD (gastroesophageal reflux disease) Carpal tunnel syndrome Diabetic neuropathy Hypertension Surgical History History of carpal tunnel release Family History Father Hypertension CVD (cardiovascular disease) Mother Cancer Social History Housing: House Alcohol intake: current Alcohol intake frequency: 0-2 drinks per day Alcohol type: hard liquor Patient Tobacco Use Status: Former Tobacco user Tobacco use type: Cigarette Years Smoked: quit 2005 e-Cigarette/Vaping Use: Never Used Second Hand Smoke Exposure: Yes service: No Current occupational status: retired Cognitive needs: No Hearing needs: No Vision needs: Yes (Glasses) Physical Exam Exam Exam: Rayo wilson in NAD. He is alert and oriented and answering quaestions normally. Most notable is his thin skin with multiple breakages in the arms consistent with chronic steroid use. He ambulates with a walker. His left hip is externally roated mildly and internal rotation is restricetd. he has a + impinement test and a positive Stinchfield. There are 2-3 beats of clonus on the right and there is weaklness in ankle dorsiflexion Results Reviewed Results Reviewed: I personally reviewed relevant radiographs. CT demonstrates severe left hip OA with subchondral insufficiency. Assessment & Plan Assessment & Plan (1) Lumbar radiculopathy: Code(s): M54.16 - Radiculopathy, lumbar region Category: Medical Plan: Maksim torresies symptoms of lumbar radiculopathy and back pain with weakness in ankle DF bilaterally. This may be secondary to the mechanical accomodations to his underlying hip OA but, given his surgical risk factors, I recommend MRI of lumbar spine prior to further discussion about hip treatment. I explained this to him and he expressed understanding. Will see him back after MRI to discuss findings and treatment for hip. (2) Type 2 diabetes mellitus with hyperglycemia: Comment: [facility] Dr. 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 Should be improving as steroid use decreases. (3) Gait instability: Code(s): R26.81 - Unsteadiness on feet Category: Medical Plan: Multifactorial but certainly relates to hip and back. Using walker is recent. (4) History of systemic steroid therapy: Code(s): Z92.241 - Personal history of systemic steroid therapy Category: Medical (5) Osteoarthritis of left hip: Comment: October 2024Severe left hip osteoarthritis and suspected subchondral insufficiency fracture, age indeterminate, involving the anterosuperior left femoral head. Code(s): M16.12 - Unilateral primary osteoarthritis, left hip Category: Medical Plan: Is using a walker with stiffness and pain in left hip. Arthroplasty is possible but will need to assess spine and risk factors. Will see after spine MRI Plan States he has been off steroids fro months but chronic skin changes and elevated HgBA1C may suggest lingering effects persisting. 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
--- OUTSIDE RECORDS SUMMARY | 2024-12-10 11:16 | XMS_ITS ---
Author Organization Unknown ENCOUNTERS Encounter Performer Location Date Diagnosis Diagnosis Status Emergency [facility] [address] [place] [id number] BEATRIZ Pre Admit Generic ED Physician [facility] [address] [place] [address] [id number] Emergency [facility] [address] [place] [id number] [facility] [address] [id number] BEATRIZ *Note: Encounters from your own facility or health system may be excluded. Allergies, Adverse Reactions, Alerts Allergen Type Severity Identification Date meloxicam drug allergy 3 [id number] simvastatin drug allergy 3 [id number] Medications Name Date Quantity Days Supplied GPI Number
--- OUTSIDE RECORDS SUMMARY | 2024-12-10 11:16 | XMS_ITS | Encounter Summary ---
Author Organization [facility] Address [address] [place] [address] Phone Care Team Providers Care Executive Staff Assistant Name Role Phone Radha Barrios MD Unavailable [phone] Chela Hernandez MD Unavailable [phone] Nae Leiva MD Unavailable [phone] Radha Barrios MD Primary Care Provider [phone] Encounter Details Date Type Department Care Team (Late st Contact Info) Description 05/28/2017 Prep for Surgery [facility] Orthopedics & Sports Medicine [address] [place] [id number] Nae Leiva MD [address] [place] [address] Orthopedics & Sports Medicine, [facility] [place] [address] [email or web address] Social History Tobacco Use Types Packs/Day Years [...] on filedocumented in this encounter Care Teams Executive Staff Assistant Relationship Specialty Start Date End Date Radha Barrios MD [address] [place] [phone] PCP - General Internal Medicine 02/22/17 Radha Barrios MD [address] [place] [phone] Historical LMR Provider 02/16/17 2 Chela Hernandez MD 4 [facility] Orthopedics & Sports Medicine, [facility]. [place], [place] [id number] Historical LMR Provider 02/16/17 Nae Leiva MD 4 [facility] Orthoped[facility] [place], [place] [id number] juan Historical LMR Provider 02/16/17 05/06/21 documented as of this encounter Additional Source Comments The information contained in this document represents components of the legal health record. It is not the complete legal health record.[facility]
== END 2024-12-10 11:18 | disposition home or self-care (01) ==
LOC: HO.HOS 10:25
PROVIDERS: PCP Internal Medicine; Visit Provider Orthopaedic Surgery
DX: M87.052 Idiopathic aseptic necrosis of left femur (principal); M54.16 Radiculopathy, lumbar region; E11.65 Type 2 diabetes mellitus with hyperglycemia; Z79.4 Long term (current) use of insulin; R26.81 Unsteadiness on feet; Z92.241 Personal history of systemic steroid therapy; M16.12 Unilateral primary osteoarthritis, left hip
CPT/HCPCS: 99214

== ENCOUNTER → 2024-12-10 10:09 | Outpatient (BNVA) | payer MEDICARE, OTHER, MEDICAID, SELFPAY | PROVIDERS: PCP Internal Medicine; Visit Provider Orthopaedic Surgery | DX: M54.16 Radiculopathy, lumbar region (principal); M16.12 Unilateral primary osteoarthritis, left hip; E11.65 Type 2 diabetes mellitus with hyperglycemia; R26.81 Unsteadiness on feet; Z92.241 Personal history of systemic steroid therapy; Z79.4 Long term (current) use of insulin | CPT/HCPCS: 99212 ==

== ENCOUNTER → 2024-12-26 10:41 | Outpatient (BNV) | payer MEDICARE, OTHER, MEDICAID, SELFPAY | PROVIDERS: PCP Internal Medicine; Visit Provider Radiology Diagnostic Radiology | DX: M47.26 Other spondylosis with radiculopathy, lumbar region (principal) | CPT/HCPCS: 72148 ==

== ENCOUNTER 2024-12-26 10:42 | Outpatient (REF) | payer MEDICARE, OTHER, MEDICAID, SELFPAY ==
--- OUTSIDE RECORDS SUMMARY | 2024-12-25 20:00 | XMS_ITS | Clinical Summary ---
Author Organization Unknown Care Team Providers Care Medical Accounts Receivable Specialist Name Role Phone PO MAGNO, PRAKASH Unavailable Unavaila mario NAIR RN, ALLY Unavailable Unavailable ALBA KIRKN, TIGRE Unavailable Unavailable KEENA PT, PANKAJ Unavailable Unavailable JC BOTTOMING ROOM SUPERVISOR, PHUONG Unavailable Unavailable Payers Payer Name Policy Type Policy Number Effective Date Expira tion Date MEDICARE.[facility].PDGM [id number] Problems Condition Name Condition Details Condition Category Status Onset Date Resolution Date Last Treatment Date Treating Clinician Comments UNILATERAL PRIMARY OSTEOARTHRIT IS, LEFT HIP Active 10-28 00:00: 00 PATHOLOGICAL FRACTURE, LEFT FEMUR, SUBS FOR FX W DELAY HEAL Active 10-28 00:00: 00 TYPE 2 DIABETES MELLITUS WITH DIABETIC NEUROPATHY, UNSP Active 10-28 00:00: 00 ESSENTIAL (PRIMARY) HYPERTENSION Active 10-28 00:00: 00 UNSPECIFIED SUBLUXATION OF LEFT HIP, SUBSEQUENT ENCOUNTER Active 10-28 00:00: 00 STRAIN OF MUSCLE, FASCIA AND TENDON OF LOWER BACK, SUBS Active 10-28 00:00: 00 OTH DISRD OF BONE DENSITY AND STRUCTURE, LEFT THIGH Active 10-28 00:00: 00 POLYMYALGIA RHEUMATICA Active 10-28 00:00: 00 GASTRO-ESOPH AGEAL REFLUX DISEASE WITHOUT ESOPHAGITIS Active 10-28 00:00: 00 PURE HYPERCHOLEST EROLEMIA, UNSPECIFIED Active 10-28 00:00: 00 FDC (CURRENT) USE OF INSULIN Active 10-28 00:00: 00 FDC (CURRENT) USE OF SYSTEMIC STEROIDS Active 10-28 00:00: 00 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 Ordering Clinician Indication Dosage Frequency Signature (SIG) Comments Components morphine 15 mg immediate release tablet 10-27 00:00: 00 10-28 00:00 :00 No [id number] Per instruc tions Per instructio ns (route: oral) Med Classific ation: Analgesic , Anti-infl ammatory or Antipyret ic Dexcom G6 Sensor device 10-26 00:00: 00 10-28 00:00 :00 No [id number] Unavailable Per instruc tions Per instructio ns (route: miscellane ous) Med Classific ation: Medical Supplies and Durable Medical Equipment (DME) gabapentin 100 mg capsule 10-21 00:00: 00 10-28 00:00 :00 No [id number] Per instruc tions Per instructio ns (route: oral) Med Classific ation: Central Nervous System Agents amlodipine 10 mg tablet 10-19 00:00: 00 10-28 00:00 :00 No [id number] ESSENTIAL (PRIMARY) HYPERTENSIO N Per instruc tions DAILY Per instructio ns DAILY (route: oral) Med Classific ation: Cardiovas cular Therapy Agents Carin 2nd Gen Pen Needle 32 gauge x 5/32 10-19 00:00: 00 10-28 00:00 :00 No [id number] Per instruc tions INSULIN 5 TIMES DAILY Per instructio ns INSULIN 5 TIMES DAILY (route: miscellane ous) Med Classific ation: Medical Supplies and Durable Medical Equipment (DME) lisinopril 40 mg tablet 10-19 00:00: 00 10-28 00:00 :00 No [id number] ESSENTIAL (PRIMARY) HYPERTENSIO N Per instruc tions DAILY Per instructio ns DAILY (route: oral) Med Classific ation: Cardiovas cular Therapy Agents baclofen 10 mg tablet 10-15 00:00: 00 10-28 00:00 :00 No [id number] Per instruc tions Per instructio ns (route: oral) Med Classific ation: Locomotor System tramadol 50 mg tablet 10-15 00:00: 00 10-28 00:00 :00 No [id number] Per instruc tions Per instructio ns (route: oral) Med Classific ation: Analgesic , Anti-infl ammatory or Antipyret ic amoxicillin 875 mg tablet 10-13 00:00: 00 10-28 00:00 :00 No [id number] Per instruc tions Per instructio ns (route: oral) Med Classific ation: Anti-Infe ctive Agents chlorhexidi ne gluconate 0.12 % mouthwash 10-13 00:00: 00 10-28 00:00 :00 No [id number] Per instruc tions Per instructio ns (route: mucous membrane) Med Classific ation: Mouth-Thr oat-Denta l - Preparati ons cyclobenzap rine 10 mg tablet 13 00:00: 00 10-28 00:00 :00 No [id number] Per instruc tions Per instructio ns (route: oral) Med Classific ation: Locomotor System tadalafil 10 mg tablet 10-08 00:00: 00 10-28 00:00 :00 No [id number] MALE ERECTILE DYSFUNCTION , UNSPECIFIED Per instruc tions EVERY OTHER DAY NEEDED FOR SEXUAL ACTIVITY APPROXIMAT GONZALEZ 30 MINUTES PER 24 HOURS Per instructio ns EVERY OTHER DAY NEEDED FOR SEXUAL ACTIVITY APPROXIMAT GONZALEZ 30 MINUTES PER 24 HOURS (route: oral) Med Classific ation: Drugs to treat Erectile Dysfuncti on Ketostix strips 10-05 00:00: 00 10-28 00:00 :00 No [id number] 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 Per instruc tions AND DISCARD 1 TEST STRIP EVERY DAY NEEDED Per instructio ns AND DISCARD 1 TEST STRIP EVERY DAY NEEDED (route: miscellane ous) Med Classific ation: Medical Supplies and Durable Medical Equipment (DME) acetaminoph en 325 mg tablet 10-28 00:00: 00 Yes [id number] PAIN 2 tablet EVERY 4 HOURS 2 tablet EVERY 4 HOURS (route: oral) Med Classific ation: Analgesic , Anti-infl ammatory or Antipyret ic amlodipine 10 mg tablet 10-28 00:00: 00 Yes [id number] LOWERS BLOOD PRESSURE 1 tablet DAILY 1 tablet DAILY (route: oral) Med Classific ation: Cardiovas cular Therapy Agents atorvastati n 20 mg tablet 10-28 00:00: 00 Yes [id number] LOWERS CHOLESTEROL 1 tablet DAILY 1 tablet DAILY (route: oral) Med Classific ation: Cardiovas cular Therapy Agents cholecalcif swapna (vitamin D3) 25 mcg (1,000 unit) tablet 10-28 00:00: 00 Yes [id number] SUPPLEMENT 1 tablet DAILY 1 tablet DAILY (route: oral) Med Classific ation: Electroly te Balance-N utritiona l Products gabapentin 100 mg tablet 10-28 00:00: 00 Yes [id number] PAIN MANAGEMENT 1 tablet BEDTIME 1 tablet BEDTIME (route: oral) Med Classific ation: Central Nervous System Agents hydrochloro thiazide 12.5 mg tablet 10-28 00:00: 00 Yes [id number] FLUID RETENTION 1 tablet DAILY 1 tablet DAILY (route: oral) Med Classific ation: Cardiovas cular Therapy Agents insulin lispro (U-100) 100 unit/mL subcutaneou s pen 10-28 00:00: 00 Yes [id number] DIABETES Per instruc tions WITH MEALS Per instructio ns WITH MEALS (route: subcutaneo ) Med Classific ation: Endocrine lisinopril 40 mg tablet 10-28 00:00: 00 Yes [id number] LOWERS BLOOD PRESSURE 1 tablet DAILY 1 tablet DAILY (route: oral) Med Classific ation: Cardiovas cular Therapy Agents morphine 15 mg immediate release tablet 10-28 00:00: 00 Yes [id number] MODERATE PAIN 1 tablet EVERY 6 HOURS 1 tablet EVERY 6 HOURS (route: oral) Med Classific ation: Analgesic , Anti-infl ammatory or Antipyret ic omeprazole 20 mg capsule,del ayed release 10-28 00:00: 00 Yes [id number] GERD 1 capsule DAILY 1 capsule DAILY (route: oral) Med Classific ation: Gastroint estinal Therapy Agents prednisone 10 mg tablet 10-28 00:00: 00 Yes [id number] POLYMYALGIA 1 tablet DAILY 1 tablet DAILY (route: oral) Med Classific ation: Endocrine Tresiba FlexTouch U-100 insulin 100 unit/mL (3 mL) subcutaneou s pen 10-28 00:00: 00 Yes [id number] DIABETES 15 unit BEDTIME 15 unit BEDTIME (route: subcutaneo us) Med Classific ation: Endocrine naproxen 500 mg tablet 10-28 00:00: 00 Yes [id number] PAIN 1 tablet 2 TIMES DAILY 1 tablet 2 TIMES DAILY (route: oral) Med Classific ation: Analgesic , Anti-infl ammatory or Antipyret ic naproxen 500 mg tablet 11-18 00:00: 00 12-18 23:59 :00 No [id number] PAIN 1 tablet 2 TIMES DAILY 1 tablet 2 TIMES DAILY (route: oral) Med Classific ation: Analgesic , Anti-infl ammatory or Antipyret ic oxycodone 5 mg tablet 11-18 00:00: 00 Yes [id number] PAIN 1 tablet DAILY 1 tablet DAILY (route: oral) Med Classific ation: Analgesic , Anti-infl ammatory or Antipyret ic tramadol 50 mg tablet 12-18 00:00: 00 Yes [id number] SEVERE PAIN 1 tablet 3 TIMES DAILY 1 tablet 3 TIMES DAILY (route: oral) Med Classific ation: Analgesic , Anti-infl ammatory or Antipyret ic Vital Signs Vital Name Observation Time Observation Value Commen ts Temperature 2024-12-23 13:25:00.000 97.8 [degF] Temperature 2024-12-18 10:24:00.000 97.1 [degF] Temperature 2024-12-14 11:28:00.000 97.6 [degF] Temperature 2024-12-07 10:45:00.000 98.7 [degF] Temperature 2024-12-03 10:45:00.000 97.6 [degF] Temperature 2024-12-02 10:21:00.000 97.9 [degF] Temperature 2024-11-23 10:21:00.000 97.6 [degF] Temperature 2024-11-18 10:42:00.000 97.3 [degF] Temperature 2024-11-16 10:06:00.000 97.3 [degF] Temperature 2024-11-10 09:45:00.000 98.3 [degF] Temperature 2024-11-09 10:20:00.000 97.6 [degF] Temperature 2024-11-04 09:12:00.000 97.3 [degF] Temperature 2024-11-03 20:08:00.000 97.7 [degF] Temperature 2024-10-28 13:29:00.000 97.7 [degF] BMI (%) 2024-10-28 13:04:14.000 23 kg/m2 Height 2024-10-28 13:02:16.000 72 [in_us] Pulse 2024-12-23 13:25:00.000 88 /min Pulse 2024-12-18 10:24:00.000 74 /min Pulse 2024-12-14 11:28:00.000 74 /min Pulse 2024-12-07 10:45:00.000 78 /min Pulse 2024-12-03 10:45:00.000 67 /min Pulse 2024-12-02 10:21:00.000 70 /min Pulse 2024-11-23 10:21:00.000 76 /min Pulse 2024-11-18 10:42:00.000 80 /min Pulse 2024-11-16 10:06:00.000 86 /min Pulse 2024-11-10 09:45:00.000 89 /min Pulse 2024-11-09 10:20:00.000 78 /min Pulse 2024-11-04 09:12:00.000 91 /min Pulse 2024-11-03 20:08:00.000 97 /min Pulse 2024-10-28 13:29:00.000 96 /min O2 Saturation (%) 2024-12-23 13:25:00.000 99 % O2 Saturation (%) 2024-12-18 10:24:00.000 99 % O2 Saturation (%) 2024-12-03 10:45:00.000 98 % O2 Saturation (%) 2024-12-02 10:21:00.000 98 % O2 Saturation (%) 2024-11-18 10:42:00.000 98 % O2 Saturation (%) 2024-11-10 09:45:00.000 99 % O2 Saturation (%) 2024-11-04 09:12:00.000 97 % O2 Saturation (%) 2024-11-03 20:08:00.000 98 % O2 Saturation (%) 2024-10-28 13:29:00.000 97 % Respirations 2024-12-23 13:25:00.000 18 /min Respirations 2024-12-18 10:24:00.000 18 /min Respirations 2024-12-14 11:28:00.000 18 /min Respirations 2024-12-07 10:45:00.000 18 /min Respirations 2024-12-03 10:45:00.000 18 /min Respirations 2024-12-02 10:21:00.000 18 /min Respirations 2024-11-23 10:21:00.000 18 /min Respirations 2024-11-18 10:42:00.000 18 /min Respirations 2024-11-16 10:06:00.000 18 /min Respirations 2024-11-10 09:45:00.000 18 /min Respirations 2024-11-09 10:20:00.000 18 /min Respirations 2024-11-04 09:12:00.000 18 /min Respirations 2024-11-03 20:08:00.000 18 /min Respirations 2024-10-28 13:29:00.000 18 /min Weight (lbs) 2024-10-28 13:04:14.000 170 [lb_av] Systolic Blood Pressure 2024-12-23 13:25:00.000 110 mm [Hg] Systolic Blood Pressure 2024-12-18 10:24:00.000 118 mm [Hg] Systolic Blood Pressure 2024-12-14 11:28:00.000 122 mm [Hg] Systolic Blood Pressure 2024-12-07 10:45:00.000 100 mm [Hg] Systolic Blood Pressure 2024-12-03 10:45:00.000 122 mm [Hg] Systolic Blood Pressure 2024-12-02 10:21:00.000 118 mm [Hg] Systolic Blood Pressure 2024-11-23 10:21:00.000 112 mm [Hg] Systolic Blood Pressure 2024-11-18 10:42:00.000 126 mm [Hg] Systolic Blood Pressure 2024-11-16 10:06:00.000 110 mm [Hg] Systolic Blood Pressure 2024-11-10 09:45:00.000 110 mm [Hg] Systolic Blood Pressure 2024-11-09 10:20:00.000 110 mm [Hg] Systolic Blood Pressure 2024-11-04 09:12:00.000 118 mm [Hg] Systolic Blood Pressure 2024-11-03 20:08:00.000 116 mm [Hg] Systolic Blood Pressure 2024-10-28 13:29:00.000 126 mm [Hg] Diastolic Blood Pressure 2024-12-23 13:25:00.000 56 mm [Hg] Diastolic Blood Pressure 2024-12-18 10:24:00.000 62 mm [Hg] Diastolic Blood Pressure 2024-12-14 11:28:00.000 78 mm [Hg] Diastolic Blood Pressure 2024-12-07 10:45:00.000 60 mm [Hg] Diastolic Blood Pressure 2024-12-03 10:45:00.000 68 mm [Hg] Diastolic Blood Pressure 2024-12-02 10:21:00.000 60 mm [Hg] Diastolic Blood Pressure 2024-11-23 10:21:00.000 70 mm [Hg] Diastolic Blood Pressure 2024-11-18 10:42:00.000 64 mm [Hg] Diastolic Blood Pressure 2024-11-16 10:06:00.000 60 mm [Hg] Diastolic Blood Pressure 2024-11-10 09:45:00.000 60 mm [Hg] Diastolic Blood Pressure 2024-11-09 10:20:00.000 60 mm [Hg] Diastolic Blood Pressure 2024-11-04 09:12:00.000 56 mm [Hg] Diastolic Blood Pressure 2024-11-03 20:08:00.000 68 mm [Hg] Diastolic Blood Pressure 2024-10-28 13:29:00.000 62 mm [Hg] Plan of Treatment Planned Activity Planned Date Details Comments Future Scheduled Test RN TO OBSE RVE, ASSESS, EVALUATE, AND DEVELOP AN INDIVIDUALIZED PLAN OF CARE. AGENCY MAY ACCEPT ORDERS FROM CONSULTING PHYSICIANS. RN TO OBSERVE AND ASSESS, PARK INTERPRETIVE SPECIALIST/CAUSTIC LIQUOR MAKER TO OBSERVE FOR RISK FOR FALLS AND INSTRUCT IN FALL PREVENTION, HOME SAFETY, MEDICATION MANAGEMENT, INFECTION PREVENTION, AND NUTRITION MANAGEMENT. RN/PARK INTERPRETIVE SPECIALIST/CAUSTIC LIQUOR MAKER NURSE MAY PERFORM O2 SATURATION LEVEL ON ADMISSION AND PRN FOR RN TO ASSESS/PARK INTERPRETIVE SPECIALIST TO OBSERVE PATIENT, WITH NOTIFICATION TO THE PHYSICIAN IF SATURATION IS 90% IN THE ABSENCE OF MORE SPECIFIC PARAMETERS FROM THE PHYSICIAN. AGENCY MAY PERFORM A RESUMPTION OF CARE VISIT FOLLOWING ANY HOSPITAL ADMISSION. RN/PARK INTERPRETIVE SPECIALIST/CAUSTIC LIQUOR MAKER TO MONITOR CO-MORBID CONDITIONS LISTED ON THE PLAN OF CARE AND ANY NEW CONDITIONS THAT PRESENT THEMSELVES DURING THIS EPISODE TO IDENTIFY CHANGES AND INTERVENE TO MINIMIZE COMPLICATIONS. [code = RN TO OBSERVE, ASSESS, EVALUATE, AND DEVELOP AN INDIVIDUALIZED PLAN OF CARE. AGENCY MAY ACCEPT ORDERS FROM CONSULTING PHYSICIANS. RN TO OBSERVE AND ASSESS, PARK INTERPRETIVE SPECIALIST/CAUSTIC LIQUOR MAKER TO OBSERVE FOR RISK FOR FALLS AND INSTRUCT IN FALL PREVENTION, HOME SAFETY, MEDICATION MANAGEMENT, INFECTION PREVENTION, AND NUTRITION MANAGEMENT. RN/PARK INTERPRETIVE SPECIALIST/CAUSTIC LIQUOR MAKER NURSE MAY PERFORM O2 SATURATION LEVEL ON ADMISSION AND PRN FOR RN TO ASSESS/PARK INTERPRETIVE SPECIALIST TO OBSERVE PATIENT, WITH NOTIFICATION TO THE PHYSICIAN IF SATURATION IS 90% IN THE ABSENCE OF MORE SPECIFIC PARAMETERS FROM THE PHYSICIAN. AGENCY MAY PERFORM A RESUMPTION OF CARE VISIT FOLLOWING ANY HOSPITAL ADMISSION. RN/PARK INTERPRETIVE SPECIALIST/CAUSTIC LIQUOR MAKER TO MONITOR CO-MORBID CONDITIONS LISTED ON THE PLAN OF CARE AND ANY NEW CONDITIONS THAT PRESENT THEMSELVES DURING THIS EPISODE TO IDENTIFY CHANGES AND INTERVENE TO MINIMIZE COMPLICATIONS.] Future Scheduled Test MEDICATION MANAGEMENT; RN/PARK INTERPRETIVE SPECIALIST/CAUSTIC LIQUOR MAKER TO REVIEW MEDICATIONS FOR INTERACTIONS, EFFECTIVENESS OF DRUG THERAPY, AND SIGNS/SYMPTOMS OF ADVERSE REACTIONS. MAY INSTRUCT AND REINFORCE MEDICATION TEACHING RELATED TO THE USE OF MEDICATIONS, DOSAGE, FREQUENCY, PURPOSE, SIDE EFFECTS, AND TO REPORT COMPLICATIONS. [code = MEDICATION MANAGEMENT; RN/PARK INTERPRETIVE SPECIALIST/CAUSTIC LIQUOR MAKER TO REVIEW MEDICATIONS FOR INTERACTIONS, EFFECTIVENESS OF DRUG THERAPY, AND SIGNS/SYMPTOMS OF ADVERSE REACTIONS. MAY INSTRUCT AND REINFORCE MEDICATION TEACHING RELATED TO THE USE OF MEDICATIONS, DOSAGE, FREQUENCY, PURPOSE, SIDE EFFECTS, AND TO REPORT COMPLICATIONS.] Future Scheduled Test RISK FOR H OSPITALIZATION; RN TO ASSESS/TEACH, CAUSTIC LIQUOR MAKER/PARK INTERPRETIVE SPECIALIST TO OBSERVE/TEACH PATIENT/CAREGIVER ON RISK FOR HOSPITALIZATION/EMERGENCY ROOM VISITS, TEACH SIGNS AND SYMPTOMS THAT PUT PATIENT AT RISK, WHEN TO NOTIFY NURSE/PHYSICIAN OF COMPLICATIONS/DECLINE, AND WHEN TO CALL 911. [code = RISK FOR HOSPITALIZATION; RN TO ASSESS/TEACH, CAUSTIC LIQUOR MAKER/PARK INTERPRETIVE SPECIALIST TO OBSERVE/TEACH PATIENT/CAREGIVER ON RISK FOR HOSPITALIZATION/EMERGENCY ROOM VISITS, TEACH SIGNS AND SYMPTOMS THAT PUT PATIENT AT RISK, WHEN TO NOTIFY NURSE/PHYSICIAN OF COMPLICATIONS/DECLINE, AND WHEN TO CALL 911.] Future Scheduled Test PAIN MANAG EMENT; RN TO ASSESS AND TEACH, CAUSTIC LIQUOR MAKER/PARK INTERPRETIVE SPECIALIST TO OBSERVE AND TEACH AND PROVIDE EDUCATION ON PAIN MANAGEMENT TECHNIQUES. [code = PAIN MANAGEMENT; RN TO ASSESS AND TEACH, CAUSTIC LIQUOR MAKER/PARK INTERPRETIVE SPECIALIST TO OBSERVE AND TEACH AND PROVIDE EDUCATION ON PAIN MANAGEMENT TECHNIQUES.] Future Scheduled Test DIABETES M ANAGEMENT; RN TO ASSESS AND TEACH, CAUSTIC LIQUOR MAKER/PARK INTERPRETIVE SPECIALIST TO OBSERVE AND TEACH INSTRUCTIONS OF DIABETIC CARE TO INCLUDE: DIET DIABETIC, SKIN CARE, SIGNS AND SYMPTOMS OF HYPO/HYPERGLYCEMIA, PROPER ADMINISTRATION OF DIABETIC MEDICATION. RN/CAUSTIC LIQUOR MAKER/PARK INTERPRETIVE SPECIALIST TO INSTRUCT ON DIABETIC FOOT CARE AND MONITOR FOR SKIN LESIONS ON LOWER EXTREMITIES. BLOOD GLUCOSE TESTING 3 TIMES DAILY. RN TO ASSESS AND TEACH, CAUSTIC LIQUOR MAKER/PARK INTERPRETIVE SPECIALIST TO OBSERVE AND TEACH PATIENT/CAREGIVER ABILITY TO PERFORM AND RECORD BLOOD GLUCOSE TESTING ORDERED AND TO REPORT ABNORMAL FINDINGS TO PHYSICIAN. RN/CAUSTIC LIQUOR MAKER/PARK INTERPRETIVE SPECIALIST MAY PERFORM BLOOD GLUCOSE TEST NEEDED. RN/CAUSTIC LIQUOR MAKER/PARK INTERPRETIVE SPECIALIST TO REPORT TO PHYSICIAN BLOOD GLUCOSE READINGS GREATER THAN 350 OR LESS THAN 70. RN/CAUSTIC LIQUOR MAKER/PARK INTERPRETIVE SPECIALIST TO INSTRUCT PATIENT ON IMPORTANCE OF HGBA1C MONITORING, KIDNEY FUNCTION TEST, EYE AND FOOT EXAMS. [code = DIABETES MANAGEMENT; RN TO ASSESS AND TEACH, CAUSTIC LIQUOR MAKER/PARK INTERPRETIVE SPECIALIST TO OBSERVE AND TEACH INSTRUCTIONS OF DIABETIC CARE TO INCLUDE: DIET DIABETIC, SKIN CARE, SIGNS AND SYMPTOMS OF HYPO/HYPERGLYCEMIA, PROPER ADMINISTRATION OF DIABETIC MEDICATION. RN/CAUSTIC LIQUOR MAKER/PARK INTERPRETIVE SPECIALIST TO INSTRUCT ON DIABETIC FOOT CARE AND MONITOR FOR SKIN LESIONS ON LOWER EXTREMITIES. BLOOD GLUCOSE TESTING 3 TIMES DAILY. RN TO ASSESS AND TEACH, CAUSTIC LIQUOR MAKER/PARK INTERPRETIVE SPECIALIST TO OBSERVE AND TEACH PATIENT/CAREGIVER ABILITY TO PERFORM AND RECORD BLOOD GLUCOSE TESTING ORDERED AND TO REPORT ABNORMAL FINDINGS TO PHYSICIAN. RN/CAUSTIC LIQUOR MAKER/PARK INTERPRETIVE SPECIALIST MAY PERFORM BLOOD GLUCOSE TEST NEEDED. RN/CAUSTIC LIQUOR MAKER/PARK INTERPRETIVE SPECIALIST TO REPORT TO PHYSICIAN BLOOD GLUCOSE READINGS GREATER THAN 350 OR LESS THAN 70. RN/CAUSTIC LIQUOR MAKER/PARK INTERPRETIVE SPECIALIST TO INSTRUCT PATIENT ON IMPORTANCE OF HGBA1C MONITORING, KIDNEY FUNCTION TEST, EYE AND FOOT EXAMS.] Future Scheduled Test FALL REDUC TION MANAGEMENT; RN TO ASSESS AND OBSERVE, PARK INTERPRETIVE SPECIALIST/CAUSTIC LIQUOR MAKER TO OBSERVE FALL RISK FACTORS AND EDUCATE PATIENT/CAREGIVER ON STRATEGIES TO MINIMIZE THE RISK OF FALLING. [code = FALL REDUCTION MANAGEMENT; RN TO ASSESS AND OBSERVE, PARK INTERPRETIVE SPECIALIST/CAUSTIC LIQUOR MAKER TO OBSERVE FALL RISK FACTORS AND EDUCATE PATIENT/CAREGIVER ON STRATEGIES TO MINIMIZE THE RISK OF FALLING.] Goal Patient Goal - T O WALK WITHOUT WALKER. TO IMPROVE PAIN. Goal Provider Goal - A PLAN OF CARE WILL BE ESTABLISHED THAT MEETS THE PATIENT S NEEDS. PATIENT WILL DEMONSTRATE OXYGEN SATURATION WITHIN NORMAL LIMITS OR PATIENT S OPTIMAL LEVEL ESTABLISHED BY THE PHYSICIAN THROUGHOUT CARE. CHANGES TO CO-MORBID CONDITIONS AND ANY NEW CONDITIONS WILL BE IDENTIFIED AND REPORTED TO THE PHYSICIAN. Goal Provider Goal - PATIENT/CAREGIVER TO VERBALIZE, AND CONSISTENTLY DEMONSTRATE EFFECTIVE, SAFE MANAGEMENT OF MEDICATION INCLUDING KNOWLEDGE OF EFFECTIVENESS, POTENTIAL SIDE EFFECTS AND DRUG REACTIONS AND WHEN TO CONTACT THE APPROPRIATE CARE PROVIDER. PATIENT/CAREGIVER WILL BE ABLE TO VERBALIZE UNDERSTANDING OF MEDICATION REGIMEN AND ACCURATELY TAKE MEDICATIONS PRESCRIBED WITHOUT ADVERSE EFFECTS BY END OF EPISODE. Goal Provider Goal - PATIENT/CAREGIVER WILL VERBALIZE UNDERSTANDING OF SIGNS AND SYMPTOMS THAT PUT THE PATIENT AT RISK FOR HOSPITALIZATION /EMERGENCY ROOM VISITS, WHEN TO NOTIFY NURSE/PHYSICIAN OF COMPLICATIONS/DECLINE AND WHEN TO CALL 911. Goal Provider Goal - PATIENT / CAREGIVER WILL VERBALIZE / DEMONSTRATE UNDERSTANDING OF PAIN CONTROL MEASURES BY END OF EPISODE. Goal Provider Goal - PATIENT / CAREGIVER WILL VERBALIZE / DEMONSTRATE AN ABILITY TO ADHERE TO SELF-MANAGEMENT OF DIABETES MANAGEMENT BY END OF EPISODE. Goal Provider Goal - PATIENT/CAREGIVER WILL VERBALIZE/DEMONSTRATE UNDERSTANDING OF FALL RISK FACTORS AND IMPLEMENT STRATEGIES TO MINIMIZE FALL RISK. PATIENT/CAREGIVER WILL VERBALIZE/DEMONSTRATE AN ABILITY TO ADHERE TO FALL REDUCTION SELF-MANAGEMENT AND LIFE-STYLE CHANGES BY END OF EPISODE. 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 ALERT AND ORIENTED X 3. REPORTS CHRONIC LEFT LE PAIN 6/10 DURING VISIT. PATIENT REPORTS IMPROVEMENT IN PAIN WITH TRAMADOL USE ALTHOUGH HE DOES REPORT HE HAS NOT TAKEN ANY SINCE 9:30 PM LAST NIGHT. LUNG SOUNDS ARE CLEAR BILATERALLY, NO PERIPHERAL EDEMA. RANDOM BLOOD SUGAR DURING VISIT 199. PATIENT DENIES ANY NEW MEDICATION OR MEDICATION CHANGES. DISCHARGE TEACHING PROVIDED INCLUDING EMERGENCY PROCEDURES AND SIGNS AND SYMPTOMS TO REPORT TO PHYSICIAN, UNDERSTANDING VERBALIZED. PATIENT IS HOMEBOUND, USES WALKER FOR AMBULATING, REQUIRES ASSISTANCE TO LEAVE THE HOME.</paragraph> Encounters Start Date/Time End Date/Time Encounter Type Admission Type Attending [facility] Care Department Encounter ID Discharge Date Discharge Status Discharge Condition Discharge Reason Percent Goals Met 2024-10-28 00:00:00 2024-12-26 00:00:00 Outpatient NEW ADMISSION ALLY NAIR [facility] [id number] 21.74
--- NOTE | ~2024-12-26 | MR_ITS ---
EXAMINATION: MR LUMBAR SPINE WITHOUT CONTRAST CLINICAL INFORMATION: Radiculopathy, lumbar region. M54.16. COMPARISON: None available. TECHNIQUE: MRI of the lumbar spine was obtained using routine sequences without contrast. FINDINGS: Last rib-bearing vertebra labeled T12. Bone marrow inhomogeneity throughout the axial skeleton. There is a subtle bone marrow STIR signal abnormality at the endplates of L3 and to a lesser extent L4. Multilevel marginal osteophyte formation and disc desiccation throughout the axial skeleton. Intrinsic hyperintense T1 signal within the intervertebral disc, T11-12 probably related to chondrocalcinosis. There is a levoconvex curvature apex at L2-3. Increased intrinsic hyperintense T1 bone marrow signal throughout the axial skeleton likely fatty replaced. No gross malalignment. Conus medullaris and at pedicle of L1 with normal signal. T11-12: No disc herniation. No neuroforamina stenosis. T12-L1: No disc herniation. Facet joint and ligamentum flavum hypertrophy. Broad-based disc bulging. No compression upon elements. L1-2: Broad-based disc bulging. Facet joint and ligamentum flavum hypertrophy. Reduced AP diameter of the thecal sac and the neural foramina likely encroaching the neural elements. L2-3: Broad-based disc bulging. Facet joint and ligamentum flavum hypertrophy. There is CSF effacement of the thecal sac. There is central spinal canal and bilateral neuroforamina stenosis encroaching the neural elements. L3-4: Broad-based disc bulging. Facet joint and ligamentum flavum hypertrophy. There is central spinal canal and bilateral neuroforamina stenosis encroaching the neural elements. L4-5: Broad-based disc bulging. Facet joint and ligamentum flavum hypertrophy resulting in central spinal canal and bilateral neuroforamina stenosis encroaching posterior compressing the neural elements of the thecal sac. L5-S1: Broad-based disc bulging. Facet joint and ligamentum flavum hypertrophy resulting in central spinal canal and bilateral neuroforamina stenosis encroaching the neural elements. There is fatty atrophy of the lower lumbar muscles from L4 to sacrum. No prevertebral compartment hematoma or mass. There is fluid/T2 signal in the right presacral region. There are multiple different sizes hyperintense T2 cystic lesions in both kidneys, the largest in the right kidney measures 5 cm.. MR/MR lumbar spine wo con IMPRESSION: Multilevel thoracolumbar spondylosis and a levoconvex scoliosis resulting in multilevel central spinal canal and bilateral neuroforamina stenosis from L1-2 to L5-S1 pronounced at L4-5 and L3-4 levels. Concerning osteopenia versus osteoporosis among other calcium metabolic disorders. Bilateral renal cysts. Fluid signal, presacral region of uncertain etiology. Electronically signed by: Jesus Bullard MD 12/28/2024 10:14 AM EDT
--- OUTSIDE RECORDS SUMMARY | 2024-12-26 11:04 | XMS_ITS ---
Author Organization Unknown ENCOUNTERS Encounter Performer Location Date Diagnosis Diagnosis Status Emergency Ashutosh Devin [facility] [address] [place] [id number] BEATRIZ Pre Admit Generic ED Physician [facility] [address] [place] [address] [id number] Emergency [facility] [address] [place] [id number] BEATRIZ [facility] [address] [address] [id number] BEATRIZ *Note: Encounters from your own facility or health system may be excluded. Allergies, Adverse Reactions, Alerts Allergen Type Severity Identification Date meloxicam drug allergy 3 [id number] simvastatin drug allergy 3 [id number] Medications Name Date Quantity Days Supplied GPI Number
--- OUTSIDE RECORDS SUMMARY | 2024-12-26 11:04 | XMS_ITS | Encounter Summary ---
Author Organization [facility] Address [address] [place] [phone] Phone Care Team Providers Care Setter Out Name Role Phone Radha Barrios MD Unavailable [phone] Chela Hernandez MD Unavailable [phone] Nae Leiva MD Unavailable [phone] Radha Barrios MD Primary Care Provider Reason for Referral * MRI/CAT Scan - Closed Specialty Diagnoses / Procedures Referred By Contac t Referred To Contact Radiology Diagnoses Left hip pain Procedures MRI Hip (Left) Sirena Armas MD Phone: tel: fax: Referral ID Status Reason Start Date Expiration Date Visits Re quested Visits Authorized [id number] Closed 01/25/2021 01/25/2022 1 1 Encounter Details Date Type Department Care Team (Latest Contact Info) Description 01/25/2021 Transcribe Orders Virtual Department [address] [place] [address] Sirena Armas MD [address] [place] [id number] Left hip pain (Primary Dx) Social History Tobacco Use Types Packs/Day Years [...] on file documented as of this encounter Results * MRI HIP WITH AND WITHOUT CONTRAST (LEFT) (02/15/2021 11:17 AM EDT) Anatomical Region Laterality Modality Hip Left Magnetic Resonan ce 02/15/2021 11:2 1 AM EDT Impressions 02/15/2021 11:37 AM EDT 1. 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 2. Small partial thickness tear of the hamstrings near the ischial tuberosity. Narrative 02/15/2021 11:37 AM EDT MRI HIP WITH AND WITHOUT CONTRAST (LEFT) HISTORY: Pain after fall and blunt trauma to left hip in 03/2020. TECHNIQUE: Multi-sequence, multi-planar MRI of the hip with and without intravenous contrast. COMPARISON: None. FINDINGS: ENTIRE PELVIS SCREENING: Small bladder diverticula. DEDICATED HIP: Bone: No fracture or osteonecrosis. Joint: Mild loss of articular cartilage at the hip joint. Mild spurring, most prominent at the superior-lateral aspect of the acetabulum.. No joint effusion. Tendons: Small amount of fluid signal closely associated with the hamstring tendons near the insertion on the ischial tuberosity. No other evidence of tendon tears. Soft Tissues: No evidence of soft tissue masses or focal fluid collections Procedure Note Shar Ricci MD - 02/15/2021 MRI HIP WITH AND WITHOUT CONTRAST (LEFT) HISTORY: Pain after fall and blunt trauma to left hip in 03/2020. TECHNIQUE: Multi-sequence, multi-planar MRI of the hip with and withoutintravenous contrast. COMPARISON: None. FINDINGS: ENTIRE PELVIS SCREENING: Small bladder diverticula. DEDICATED HIP: Bone: No fracture or osteonecrosis. Joint: Mild loss of articular cartilage at the hip joint. Mild spurring,most prominent at the superior-lateral aspect of the acetabulum.. No jointeffusion. Tendons: Small amount of fluid signal closely associated with thehamstring tendons near the insertion on the ischial tuberosity. No otherevidence of tendon tears. Soft Tissues: No evidence of soft tissue masses or focal fluidcollections IMPRESSION: 1. 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 2. Small partial thickness tear of the hamstrings near the ischialtuberosity. Sirena Armas MD IMG MR EXTREMITY Final Result documented in this encounter Visit Diagnoses Diagnosis Left hip pain- Primary Pain in joint, pelvic region and thigh Left hip pain Pain in joint, pelvic region and thigh documented in this encounter Care Teams Setter Out Relationship Specialty Start Date End Date Radha Barrios MD [address] [place] [phone] PCP - General Internal Medicine 02/22/17 Radha Barrios MD [address] [place] [phone] Historical LMR Provider 02/16/17 2 Chela Hernandez MD [address] [place] [address] Orth[facility]ics [facility] Medicine, [place] [address] Historical LMR Provider 02/16/17 Nae Leiva MD [address] [facility], [place] [address] juan Historical LMR Provider 02/16/17 05/06/21 documented as of this encounter Additional Source Comments The information contained in this document represents components of the legal health record. It is not the complete legal health record.[facility]
--- OUTSIDE RECORDS SUMMARY | 2024-12-26 11:04 | XMS_ITS | Encounter Summary ---
Author Organization [facility] Address [address] [place] [address] Phone Care Team Providers Care Bulk Tank Car Unloader Name Role Phone Radha Barrios MD Unavailable [phone] Chela Hernandez MD Unavailable [phone] Nae Leiva MD Unavailable [phone] Radha Barrios MD Primary Care Provider [phone] Encounter Details Date Type Department Care Team (Late st Contact Info) Description 03/12/2017 Prep for Surgery [facility] Medicine [address] [place] [address] [phone] Nae Leiva MD [address] [place] [address] Orthopedics & Sports Medicine, [facility] [address] juan [email or web address] Social History Tobacco Use Types Packs/Day Years Used Date Smoking Tobacco: Former Cigarettes Q uit: 01/26/2006 Alcohol Use Standard Drinks/Week Comments Yes 0 (1 standard drink = 0.6 oz pur e alcohol) Sex and Gender Information Value Date Recorded Sex Assigned at Not on file Legal Sex Male 10:38 PM EDT Gender Identity Not on file Sexual Orientation Not on file documented as of this encounter Plan of Treatment Not on file documented as of this encounter Visit Diagnoses Not on filedocumented in this encounter Care Teams Bulk Tank Car Unloader Relationship Specialty Start Date End Date Radha Barrios MD [address] [place] [address] PCP - General Internal Medicine 02/22/17 Radha Barrios MD [address] [place] [phone] Historical LMR Provider 02/16/17 2 Chela Hernandez MD [address] [place] [address] Orthopedics & Sports Medicine, [facility] [address] Historical LMR Provider 02/16/17 Nae Leiva MD [address] [facility] Orth[facility], [facility]. [place], [place] [phone] juan Historical LMR Provider 02/16/17 05/06/21 documented as of this encounter Additional Source Comments The information contained in this document represents components of the legal health record. It is not the complete legal health record.[facility]
--- OUTSIDE RECORDS SUMMARY | 2024-12-26 11:04 | XMS_ITS | Encounter Summary ---
Author Organization [facility] Address [address] [place] [address] Phone Care Team Providers Care Chemical Blender Name Role Phone Radha Barrios MD Unavailable [phone] Chela Hernandez MD Unavailable [phone] Nae Leiva MD Unavailable [phone] Radha Barrios MD Primary Care Provider [phone] Encounter Details Date Type Department Care Team (Late st Contact Info) Description 05/29/2017 Procedure Pass OR Admitting Dept - Virtual Department [address] [place] [address] Social History Tobacco Use Types Packs/Day Years [...] on filedocumented in this encounter Care Teams Chemical Blender Relationship Specialty Start Date End Date Radha Barrios MD [address] [place] [phone] PCP - General Internal Medicine 02/22/17 Radha Barrios MD [address] [place] [phone] Historical LMR Provider 02/16/17 2 Chela Hernandez MD [address] [facility] Orth[facility]ics [facility] Medicine, [facility] [address] [email or web address] Historical LMR Provider 02/16/17 Nae Leiva MD [address] [facility] Orthoped[facility] Sports [facility], [facility] [place], [place] [phone] juan Historical LMR Provider 02/16/17 05/06/21 documented as of this encounter Additional Source Comments The information contained in this document represents components of the legal health record. It is not the complete legal health record.[facility]
--- OUTSIDE RECORDS SUMMARY | 2024-12-26 11:04 | XMS_ITS | Encounter Summary ---
Author Organization [facility] Address [address] [place] [address] Phone Care Team Providers Care Internet Marketing Assistant Name Role Phone Radha Barrios MD Unavailable [phone] Chela Hernandez MD Unavailable [phone] Nae Leiva MD Unavailable [phone] Radha Barrios MD Primary Care Provider Encounter Details Date Type Department Care Team (Late st Contact Info) Description 04/03/2017 Procedure Pass OR Admitting Dept - Virtual Department [address] [place] [address] Social History Tobacco Use Types Packs/Day Years [...] on filedocumented in this encounter Care Teams Internet Marketing Assistant Relationship Specialty Start Date End Date Radha Barrios MD [address] [place] [phone] PCP - General Internal Medicine 02/22/17 Radha Barrios MD [address] [place] [phone] Historical LMR Provider 02/16/17 2 Chela Hernandez MD 4 [facility] Orth[facility]ics & Sports Medicine, [place] [address] [email or web address] Historical LMR Provider 02/16/17 Nae Leiva MD 4 [facility] Orthopedics Sports [facility], [facility]. [place], [place] [phone] juan Historical LMR Provider 02/16/17 05/06/21 documented as of this encounter Additional Source Comments The information contained in this document represents components of the legal health record. It is not the complete legal health record.[facility]
--- OUTSIDE RECORDS SUMMARY | 2024-12-26 11:04 | XMS_ITS | Encounter Summary ---
Author Organization [facility] Address [address] [place] [address] Phone Care Team Providers Care Peer Educator Name Role Phone Radha Barrios MD Unavailable [phone] Chela Hernandez MD Unavailable [phone] Nae Leiva MD Unavailable [phone] Radha Barrios MD Primary Care Provider [phone] Encounter Details Date Type Department Care Team (Late st Contact Info) Description 05/28/2017 Prep for Surgery [facility] Orthopedics & Sports Medicine [address] [place] [address] [phone] Nae Leiva MD [address] [place] [address] Orthopedics & Sports Medicine, [facility] [place] [address] juan [email or web address] Social History Tobacco Use Types Packs/Day Years [...] on filedocumented in this encounter Care Teams Peer Educator Relationship Specialty Start Date End Date Radha Barrios MD [address] [place] [address] [phone] PCP - General Internal Medicine 02/22/17 Radha Barrios MD [address] [place] [phone] Historical LMR Provider 02/16/17 2 Chela Hernandez MD 4 [facility] Orthopedics & Sports Medicine, [facility]. [place], [place] [phone] Historical LMR Provider 02/16/17 Nae Leiva MD 4 [facility] Orthopedics Sports [facility], [place], [place] [phone] juan Historical LMR Provider 02/16/17 05/06/21 documented as of this encounter Additional Source Comments The information contained in this document represents components of the legal health record. It is not the complete legal health record.[facility]
--- OUTSIDE RECORDS SUMMARY | 2024-12-26 11:04 | XMS_ITS | Encounter Summary ---
Author Organization [facility] Address [address] [place] [address] Phone Care Team Providers Care Wire Strander Name Role Phone Radha Barrios MD Unavailable [phone] Chela Hernandez MD Unavailable [phone] Nae Leiva MD Unavailable [phone] Radha Barrios MD Primary Care Provider [phone] Encounter Details Date Type Department Care Team (Late st Contact Info) Description 01/25/2021 Procedure Pass [facility], [address] [place] [address] Social History Tobacco Use Types Packs/Day Years [...] on filedocumented in this encounter Care Teams Wire Strander Relationship Specialty Start Date End Date Radha Barrios MD [address] [place] [phone] PCP - General Internal Medicine 02/22/17 Radha Barrios MD [address] [place] [address] Historical LMR Provider 02/16/17 2 Chela Hernandez MD 4 [facility] Orthopedics & Sports Medicine, [facility] [place], [place] [phone] [email or web address] Historical LMR Provider 02/16/17 Nae Leiva MD 4 [facility] Orthopedics Sports [facility], [facility] [place], [place] [phone] juan Historical LMR Provider 02/16/17 05/06/21 documented as of this encounter Additional Source Comments The information contained in this document represents components of the legal health record. It is not the complete legal health record.[facility]
--- OUTSIDE RECORDS SUMMARY | 2024-12-26 11:04 | XMS_ITS | Patient Health Record ---
Author Organization [facility] Address [address] [place] [address] Care Team Providers Care Bmx Rider Name Role Phone Radha Barrios MD Primary Care Provider Sunday Yates [phone] Allergies Allergen (clinical drug ingredient) Drug/Non Drug [...] former smoker When did you stop smoking? 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) Active confirmed Problem [id number] Positive colorectal cancer screening using Cologuard test (R19.5) Active confirmed Plan Of Treatment Future Test Test Name Order Date COLONOSCOPY 01/22/2019 Insurance Providers Payer Name Payer Address Payer Phone Subscriber Number Group Number Insured Name Patient Relationship to Insured Coverage Start Date Coverage End Date MEDICARE OF [place] [address] [place] [address] [id number] JONATAN SAWYER Self - patient is the insured [facility] [address] [place] [address] [id number] JONATAN SAWYER Self - patient is the insured Medical (General) History Medical History History ICD Code IDDM HTN Denies OH,CVA,Lung disease,renal disease IBS GERD---EGD 01/2008-small HH; normal duodenal biopsies, neg. for celiac disease Colonoscopy 01/2008-neg for colitis/poly ps PMR + Cologuard test 2018 Surgical History Surgery Date(Month/Year) Carpal tunnel release bilaterally
--- OUTSIDE RECORDS SUMMARY | 2024-12-26 11:04 | XMS_ITS | Clinical Summary ---
Author Organization [facility] Address [address] [phone] Phone Care Team Providers Care Copy Lathe Operator Name Role Phone Radha Barrios MD Primary Care Provider [phone] Allergies Active Allergy Reactions Criticality Noted Date Comments Vthfrmi-Nji-Qlb Reductase Inhibitors Diarrhea 02/25/2017 Pt not sure which Medications aspirin 81 MG EC tablet 1 tablet Active atorvastatin (LIPITOR) 20 MG tablet 1 tablet Active lisinopril (PRINIVIL,ZESTR IL) 40 MG tablet 1 tablet Active insulin aspart (NOVOLOG) 100 unit/mL injection vial 3 (three) times a day before meals. 5-9 units on sliding scale Active omeprazole (PRILOSEC) 20 MG capsule 2 capsules Active insulin glargine (TOUJEO SOLOSTAR) 300 unit/mL (1.5 mL) injection pen Inject 18 Units under the skin nightly. Active cholecalciferol (VIT D3) 400 unit/mL oral drops Active predniSONE (DELTASONE) 5 MG tabletIndicatio ns:polymyalgia rheumatica Take 8 mg by mouth daily. Indications: Polymyalgia Rheumatica Active alendronate (FOSAMAX) 70 MG tablet Take 70 mg by mouth every 7 days. Take in the morning with a full glass of water, on an empty stomach, and do not take anything else by mouth or lie down for the next 30 min. Active oxyCODONE 5 MG immediate release tablet Take 1-2 tablets (5-10 mg total) by mouth every 4 (four) hours as needed for moderate pain. Pt. may request partial fill 15 tablet 8 Active Additional Information Patient not taking.Reported on 06/11/2017 Active Problems Problem Noted Date Diagnosed Date Status post carpal tunnel release 05/14/2017 Overview (05/14/2017): Right 04/03/[address] Leiva Hyperlipidemia 02/25/2017 Arthralgia of right hand 02/23/2017 Carpal tunnel syndrome of right wrist Carpal tunnel syndrome of left wrist Family History Relation Status Comments Father Mother Sister Alive Social History Tobacco Use Types Packs/Day Years Used Date Smoking Tobacco: Former Cigarettes Q uit: 01/26/2006 Smokeless Tobacco: Never Alcohol Use Standard Drinks/Week Comments Yes 0 (1 standard drink = 0.6 oz pur e alcohol) daily 2 drinks with supper Education Answer Date Recorded Are you interested in more education? Not on imani e 08/24/2022 Are you concerned about learning? Not on file 08/24/2022 No 08/24/2022 No 08/24/2022 Digital Access Answer Date Recorded No 09/22/2022 No 09/22/2022 No 09/22/2022 Reliable internet access at home? Not on file 09/22/2022 Device with a working camera? Not on file Sex and Gender Information Value Date Recorded Sex Assigned at Not on file Legal Sex Male 10:38 PM EDT Gender Identity Not on file Sexual Orientation Not on file Last Filed Vital Signs Vital Sign Reading Time Taken Comments Blood Pressure 108/63 05/29/2017 9:50 AM EST Pulse 59 05/29/2017 9:50 AM EST Temperature 36.6 C (97.9 F) 05/29/2017 9:10 AM EST Respiratory Rate 12 05/29/2017 9:10 AM EST Oxygen Saturation 96% 05/29/2017 9:50 AM EST Inhaled Oxygen Concentration - - Weight 81.6 kg (180 lb) 02/09/2021 4:51 PM EDT Height 182.9 cm (6') 02/09/2021 4:51 PM EDT Body Mass Index 24.41 02/09/2021 4:51 PM EDT Plan of Treatment Health Maintenance Due Date Last Done Comments Adult Td,Tdap Booster 1944 CREATININE LEVEL 1944 LIPID PANEL 1944 POTASSIUM LEVEL 1944 DEPRESSION SCREENING 1956 SMOKING Hx and SMOKELESS TOBACCO SCREENING 1957 PNEUMOCOCCAL VACCINES (50+ years) (1 of 1 - PCV) 1994 RSV VACCINE (1 - 1-dose 75+ series) 09/03/2019 COVID-19 VACCINE (2 - 2023-2 5 season) 2023 06/01/2020 ZOSTER VACCINES Completed 02/26/2019, 12/16/2018, 08/28/2012 HEPATITIS A VACCINES Aged Out No long er eligible based on patient's age to complete this topic HIB VACCINES Aged Out No longer eligi ble based on patient's age to complete this topic MENINGOCOCCAL VACCINES (ACWY) Aged Out No longer eligible based on patient's age to complete this topic MENINGOCOCCAL VACCINES (B) Aged Out N o longer eligible based on patient's age to complete this topic Medical Devices Not on file Insurance MEDICARE PART A & B [facility] MEDICARE SUPPLEMENT [facility]IC[facility] PART A & B [facility] MEDICARE SUPPLEMENT [facility] MEDIC[facility] PART A & B [facility] MEDICARE SUPPLEMENT [facility] MEDICARE PART A & B [facility] MEDICARE SUPPLEMENT [facility] MEDICARE PART A & B [employer] EXTENSION MEDICARE SUPPLEMENT [facility] MEDICARE PART A & B [employer] [facility] EXTENSION MEDICARE SUPPLEMENT [facility] MEDICARE PART A & B [facility]ION MEDICARE SUPPLEMENT [facility] MEDIC[facility] PART A & B [facility] MEDICARE SUPPLEMENT [facility] MEDICARE PART A & B [employer] [facility]IC[facility] SUPPLEMENT [facility] Advance Directives For more information, please contact: [phone] (9AM - 5PM Jazmyn/[facility], Saturday-Saturday) * Full Code (Presumed) (Latest Code Status on File) Date Activated Date Inactivated Comments 05/29/2017 7:32 AM 05/29/2017 12:15 PM * Full Code (Presumed) Date Activated Date Inactivated Comments 04/03/2017 6:51 AM 04/03/2017 11:58 AM Care Teams Copy Lathe Operator Relationship Specialty Start Date End Date Radha Barrios MD [address] [place] [address] PCP - General Internal Medicine 02/22/17 Additional Source Comments The information contained in this document represents components of the legal health record. It is not the complete legal health record.[facility]
== END 2024-12-26 10:43 | disposition home or self-care (01) ==
LOC: HO.MRI 10:42
PROVIDERS: PCP Internal Medicine; Visit Provider Orthopaedic Surgery
DX: M54.16 Radiculopathy, lumbar region (principal)
CPT/HCPCS: 72148

== ENCOUNTER 2025-02-04 10:59 | Outpatient (AMB) | payer MEDICARE, OTHER, MEDICAID, SELFPAY ==
--- NOTE | 2025-02-04 11:03 | A.OFFVIS_ITS ---
Intake Visit Reasons: OV - Lumbar Spine MRI Review Intake Note: Maksim is an 79 year old male who presents today for an MRI review of his Lumbar Spine. Allergies meloxicam Allergy (Unknown, Verified 11/25/24 13:23) Unknown simvastatin Allergy (Unknown, Verified 11/25/24 13:23) Unknown HPI HPI OV - Lumbar Spine MRI Review: Details: Maksim is an 79 year old male who presents today for an MRI review of his Lumbar Spine. He initially saw me for his left hip. He does have left hip OA but he describes posterior radiating symptoms not consistent with hip OA. He describes falling because of weakness. He describes weakness in the left leg. Denies groin pain. [facility]LY [facility] Medical History Osteopenia Erectile dysfunction Type 2 diabetes mellitus with hyperglycemia Polymyalgia rheumatica Thrombocytopenia Hypercholesterolemia GERD (gastroesophageal reflux disease) Carpal tunnel syndrome Diabetic neuropathy Hypertension Surgical History History of carpal tunnel release Family History Father Hypertension CVD (cardiovascular disease) Mother Cancer Social History Housing: House Alcohol intake: current Alcohol intake frequency: 0-2 drinks per day Alcohol type: hard liquor Patient Tobacco Use Status: Former Tobacco user Tobacco use type: Cigarette Years Smoked: quit 2005 e-Cigarette/Vaping Use: Never Used Second Hand Smoke Exposure: Yes service: No Current occupational status: retired Cognitive needs: No Hearing needs: No Vision needs: Yes (Glasses) Physical Exam Exam Exam: Requires walker to ambulate No pain with impingement testing. 4+/5 left ankle DF Sustained clonus left ankle Results Reviewed Results Reviewed: I personally reviewed the MR images. IMPRESSION: Multilevel thoracolumbar spondylosis and a levoconvex scoliosis resulting in multilevel central spinal canal and bilateral neuroforamina stenosis from L1-2 to L5-S1 pronounced at L4-5 and L3-4 levels. Assessment & Plan Assessment & Plan (1) Osteoarthritis of left hip: Code(s): M16.12 - Unilateral primary osteoarthritis, left hip Category: Medical Plan: Radiographic left hip OA but more concerned with weakness and radiating pain in left leg (2) Lumbar canal stenosis: Code(s): M48.061 - Spinal stenosis, lumbar region without neurogenic claudication Category: Medical Plan: Referral to N. Spine (3) Left leg weakness: Code(s): R29.898 - Other symptoms and signs involving the musculoskeletal system Category: Medical Plan: Referral to N. spine Orders: Referrals Neuro Spine Referral M48.061 - Spinal stenosis, lumbar region without neurogenic claudication, R29.898 - Other symptoms and signs involving the musculoskeletal system Coding Level of Care Code Est Pt Level 4 (72571) Diagnoses Osteoarthritis of left hip M16.12 Lumbar canal stenosis M48.061 Left leg weakness R29.898
== END 2025-02-04 11:31 | disposition home or self-care (01) ==
LOC: HO.HOS 11:00
PROVIDERS: PCP Internal Medicine; Visit Provider Orthopaedic Surgery
DX: M16.12 Unilateral primary osteoarthritis, left hip (principal); M48.061 Spinal stenosis, lumbar region without neurogenic claudication; R29.898 Other symptoms and signs involving the musculoskeletal system
CPT/HCPCS: 99214

== ENCOUNTER → 2025-02-04 10:59 | Outpatient (BNVA) | payer MEDICARE, OTHER, MEDICAID, SELFPAY | PROVIDERS: PCP Internal Medicine; Visit Provider Orthopaedic Surgery | DX: M16.12 Unilateral primary osteoarthritis, left hip (principal); M48.061 Spinal stenosis, lumbar region without neurogenic claudication; R29.898 Other symptoms and signs involving the musculoskeletal system | CPT/HCPCS: 99212 ==

== ENCOUNTER 2025-02-10 10:25 | Outpatient (AMB) | payer MEDICARE, OTHER, MEDICAID, SELFPAY ==
--- NOTE | 2025-02-10 10:30 | A.SPINEOV_ITS ---
Vital Signs 02/10/25 10:40 Height 6 ft Weight 165 lb BMI 22.4 Intake Visit Reasons: spinal stenosis, lumbar region Intake Note: Mr. Pa is here today c/o low back pain and Left leg pain. Investigations Consultant Required: No Allergies meloxicam Allergy (Unknown, Verified 02/10/25 10:42) Unknown simvastatin Allergy (Unknown, Verified 02/10/25 10:42) Unknown Physical Exam Vital Signs: BMI result Body Mass Index 22.4 Assessment & Plan Assessment & Plan (1) Left leg weakness: Code(s): R29.898 - Other symptoms and signs involving the musculoskeletal system Category: Medical Plan Dear Dr Dexter Thank you for referring Mr Pa to our office today. He is a very nice diabetic gentleman who also has h/o PMR, presents with 4 months of feelings of weakness and pain in his left leg. The symptoms started rather abruptl back in September and have been getting steadily worse. He has taken a few falls over the last few months. The patient has gotten to the point now where he is very nervous to walk without using a walker. There may be a component of numbness but it is not a primary feature and he has a hard time being able to give me any description as to where that might be in his leg or foot. The leg pain will start just about in his buttock and will have intermittent periods that will radiate down into his tibial region. The pain can be associated with walking but is not always connected to being on his feet. In fact the worst time of the day is when he goes to bed. When he is in a recumbent position the pain is almost intolerable. He uses tramadol and Advil to deal with the pain. The feeling of weakness in the leg however is fairly consistent. He does not describe any bowel or bladder incontinence. There is a component of back pain but it is not 1 of the main features of why he is here today. He did have hip x-rays and a CT and it looks like from the notes there is some degenerative arthritis but nothing that would explain the pain that he is currently having. It was felt that it might be more connected to the lumbar spine and he underwent an MRI here at [facility] showing degenerative spondylosis and stenosis along multiple levels of the lumbar spine. He was referred for evaluation. PMH: History of diabetes, it looks like from his chart that his A1c is not well controlled. He has history of polymyalgia and will have intermittent periods where he is on steroids, but tells me that he is not regularly been on prednisone or any other steroid routinely since he has had that diagnosis. It is just intermittent pulse dose of steroids occasionally. There is listing of osteoporosis in his chart from a DEXA scan in 2020. History of hypertension, high cholesterol, GERD, constipation, cataracts. He does not describe any cardiopulmonary issues, liver or lung disease, bleeding disorders or blood clots. There is a mention of thrombocytopenia in his chart but is platelet count over the last 5 years has been steadily over 100. No history of major abdominal surgeries, putting disorders, cancer etc.. Social hx: Does not smoke, quit 20 years ago, does not drink use any recreational drugs Medications: Tresiba, lisinopril, atorvastatin, amlodipine, hydrochlorothiazide, omeprazole, Humalog, Advil and tramadol Allergies: Meloxicam and simvastatin Physical exam: Awake alert oriented no acute distress, he is able to stand up out of a chair with his walker, he is very nervous even stepping away from it for 2nd. He was able to ambulate down the hallways and had some degree of an antalgic gait but he was not limping. On static motor testing, he has weakness of his left iliopsoas which I would rate as 4-5, left quadriceps which I would rate as 4+ out of 5, in his left tibialis which I would also rate as 4-5. On the right leg, there was also some degree of tibialis weakness as well, 4-5. Reflexes diminished at the patella bilaterally, absent at the Achilles bilaterally. Imaging review: Lumbar MRI done here at [facility] shows degenerative spondylosis, moderate stenosis at L3-4, moderate to severe stenosis at L4-5 are the meaningful findings. Impression: 79-year-old gentleman presents with 4 months of worsening left leg weakness, falls as well as some radicular pain in his left buttock going into his tibial region. He is very dependent on his walker at this point for stability. He has tremendous amounts of pain when he is lying down at night, he will take tramadol and Advil. The pain can be correlated with walking at times but not always. On exam he has weakness in multiple myotomes of the left leg. His MRI does show stenosis primarily at L4-5 where there is moderate to severe stenosis, and to a lesser degree at L3-4. Certainly the stenosis could be causing part of his symptoms, but because of his poorly-controlled diabetes, and multiple myotomes involved in his left leg demonstrating weakness, we need to consider a polyneuropathy is also potential diagnosis in the differential. I am going to check an updated A1c, and will get a left lower extremity EMG. It is well-known that polyneuropathy can mimic a lumbar radiculopathy, and lumbar stenosis can be seen in patients who are 80 years old and can be asymptomatic. The EMG should help us clarify this as to what the potential sources. If the EMG excludes polyneuropathy,and his A1c is reasonably well controlled I think Dr. Mcintosh would offer him decompression of the stenotic segments. Thank you for allowing us to care for your patient. The total time spent with this visit with this patient was 45 minutes reviewing history, physical exam, lumbar imaging review, and implementation of treatment plan or further diagnostic testing Manny Mcintosh MD,PhD [facility] Orders: Orders Hemoglobin A1c Today E11.65 - Type 2 diabetes mellitus with hyperglycemia, Z79.4 - supervisor intermediates (current) use of insulin NE electromyogram (EMG) Today R29.898 - Other symptoms and signs involving the musculoskeletal system Coding Level of Care Code New Pt Level 4 (73231) Diagnoses Left leg weakness R29.898
[2025-02-10 10:40] VITALS: BMI 22.4
--- OUTSIDE RECORDS SUMMARY | 2025-02-10 12:23 | XMS_ITS | Encounter Summary ---
Author Organization [facility] Address [address] [place] [address] Phone Care Team Providers Care Briar Cutter Name Role Phone Radha Barrios MD Unavailable [phone] Chela Hernandez MD Unavailable [phone] Nae Leiva MD Unavailable [phone] Radha Barrios MD Primary Care Provider [phone] Encounter Details Date Type Department Care Team (Late st Contact Info) Description 05/29/2017 Procedure Pass [place] Admitting Dept - Virtual Department [address] [place] [address] Social History Tobacco Use Types Packs/Day Years [...] on filedocumented in this encounter Care Teams Briar Cutter Relationship Specialty Start Date End Date Radha Barrios MD [address] [place] [address] [phone] PCP - General Internal Medicine 02/22/17 Radha Barrios MD [address] [place] [phone] Historical LMR Provider 02/16/17 2 Chela Hernandez MD 4 [facility] Orthopedics & Sports Medicine, [facility] [place] [address] [email or web address] Historical LMR Provider 02/16/17 Nae Leiva MD 4 [facility] Orthopedics Sports [facility], [facility] [place], [place] [phone] juan Historical LMR Provider 02/16/17 05/06/21 documented as of this encounter Additional Source Comments The information contained in this document represents components of the legal health record. It is not the complete legal health record.[facility]
--- OUTSIDE RECORDS SUMMARY | 2025-02-10 12:23 | XMS_ITS | Encounter Summary ---
Author Organization [facility] Address [address] [place] [address] Phone Care Team Providers Care Firefighter Type One Name Role Phone Radha Barrios MD Unavailable [phone] Chela Hernandez MD Unavailable [phone] Nae Leiva MD Unavailable [phone] Radha Barrios MD Primary Care Provider [phone] Encounter Details Date Type Department Care Team (Late st Contact Info) Description 01/25/2021 Procedure Pass [facility], [address] [place] [address] Social History Tobacco Use Types Packs/Day Years [...] on filedocumented in this encounter Care Teams Firefighter Type One Relationship Specialty Start Date End Date Radha Barrios MD [address] [place] [phone] PCP - General Internal Medicine 02/22/17 Radha Barrios MD [address] [place] [address] Historical LMR Provider 02/16/17 2 Chela Hernandez MD 4 [facility] Orthopedics & Sports Medicine, [facility] [place], [place] [phone] [email or web address] Historical LMR Provider 02/16/17 Nae Leiva MD [address] [facility] Orthopedics Sports [facility], [facility] [place], [place] [phone] juan Historical LMR Provider 02/16/17 05/06/21 documented as of this encounter Additional Source Comments The information contained in this document represents components of the legal health record. It is not the complete legal health record.[facility]
--- OUTSIDE RECORDS SUMMARY | 2025-02-10 12:23 | XMS_ITS | Encounter Summary ---
Author Organization [facility] Address [address] [place] [address] Phone Care Team Providers Care Fire Extinguisher Repairer Inspector Name Role Phone Radha Barrios MD Unavailable [phone] Chela Hernandez MD Unavailable [phone] Nae Leiva MD Unavailable [phone] Radha Barrios MD Primary Care Provider [phone] Encounter Details Date Type Department Care Team (Late st Contact Info) Description 04/03/2017 Procedure Pass [place] Admitting Dept - Virtual Department [address] [place] [address] Social History Tobacco Use Types Packs/Day Years [...] on filedocumented in this encounter Care Teams Fire Extinguisher Repairer Inspector Relationship Specialty Start Date End Date Radha Barrios MD [address] [place] [address] [phone] PCP - General Internal Medicine 02/22/17 Radha Barrios MD [address] [place] [phone] Historical LMR Provider 02/16/17 2 Chela Hernandez MD 4 [facility] Orthopedics & Sports Medicine, [place] [address] [email or web address] Historical LMR Provider 02/16/17 Nae Leiva MD 4 [facility] Orthopedics Sports [facility], [facility] [place], [place] [phone] juan Historical LMR Provider 02/16/17 05/06/21 documented as of this encounter Additional Source Comments The information contained in this document represents components of the legal health record. It is not the complete legal health record.[facility]
--- OUTSIDE RECORDS SUMMARY | 2025-02-10 12:23 | XMS_ITS | Patient Health Record ---
Author Organization [facility] Address [address] [place] [address] Care Team Providers Care Log Hooker Name Role Phone Radha Barrios MD Primary Care Provider Sunday Yates [phone] Allergies Allergen (clinical drug ingredient) Drug/Non Drug [...] MG 1 tablet Oral ly Once a day; Duration: 30 day(s) Active Lisinopril 40 MG 1 tablet Orally Once a day; Duration: 30 day(s) Active Omeprazole 20 MG 1 capsule Orally Onc e a day; Duration: 30 day(s) Active Toujeo Max SoloStar 300 UNIT/ML 20 units as directed Subcutaneous once a day Active amLODIPine Besylate 2.5 MG 1 tablet Oral ly Once a day; Duration: 30 day(s) Active Vitamin D 2000 UNIT 1 tablet Orally Once a day; Duration: 30 day(s) Active Tresiba FlexTouch 200 UNIT/ML as directed Subcutaneous Act norma Aspir-Low 81 MG 1 tablet Orally Once a day; Duration: 30 day(s) Active Social History Tobacco Use: Social History Observation Description Date Details (start date - stop date) Former Smoker NA - NA Tobacco Use/Smoking Question Answer Notes Patient is a former smoker When did you stop smoking? 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) Active confirmed Problem Abnormal feces (208366384) Positive colorectal cancer screening using Cologuard test (R19.5) Active confirmed Plan Of Treatment Future Test Test Name Order Date COLONOSCOPY 01/22/2019 Insurance Providers Payer Name Payer Address Payer Phone Subscriber Number Group Number Insured Name Patient Relationship to Insured Coverage Start Date Coverage End Date MEDICARE OF [place] [address] [place] [address] [id number] JONATAN SAWYER Self - patient is the insured [facility] IN[facility] [address] [place] [address] [id number] JONATAN SAWYER Self - patient is the insured Medical (General) History Medical History History ICD Code IDDM HTN Denies MO,CVA,Lung disease,renal disease IBS GERD---EGD 01/2008-small HH; normal duodenal biopsies, neg. for celiac disease Colonoscopy 01/2008-neg for colitis/poly ps PMR + Cologuard test 2018 Surgical History Surgery Date(Month/Year) Carpal tunnel release bilaterally
--- OUTSIDE RECORDS SUMMARY | 2025-02-10 12:23 | XMS_ITS | Encounter Summary ---
Author Organization [facility] Address [address] [place] [address] Phone Care Team Providers Care Insurance Case Manager Name Role Phone Radha Barrios MD Unavailable [phone] Chela Hernandez MD Unavailable [phone] Nae Leiva MD Unavailable [phone] Radha Barrios MD Primary Care Provider [phone] Reason for Referral * MRI/CAT Scan - Closed Specialty Diagnoses / Procedures Referred By Contac t Referred To Contact Radiology Diagnoses Left hip pain Procedures MRI Hip (Left) Sirena Armas MD Phone: tel: fax: Referral ID Status Reason Start Date Expiration Date Visits Re quested Visits Authorized [id number] Closed 01/25/2021 01/25/2022 1 1 Encounter Details Date Type Department Care Team (Latest Contact Info) Description 01/25/2021 Transcribe Orders Virtual Department [address] [place] [address] Sirena Armas MD [address] [place] [phone] Left hip pain (Primary Dx) Social History [...] thigh documented in this encounter Care Teams Insurance Case Manager Relationship Specialty Start Date End Date Radha Barrios MD [address] [place] [phone] PCP - General Internal Medicine 02/22/17 Radha Barrios MD [address] [place] [phone] Historical LMR Provider 02/16/17 2 Chela Hernandez MD [address] [place] [address] Orthopedics & Sports Medicine, [place] [address] Historical LMR Provider 02/16/17 Nae Leiva MD 4 [facility] Orthopedics & Sports Medicine, [place] [address] juan Historical LMR Provider 02/16/17 05/06/21 documented as of this encounter Additional Source Comments The information contained in this document represents components of the legal health record. It is not the complete legal health record.[facility]
--- OUTSIDE RECORDS SUMMARY | 2025-02-10 12:23 | XMS_ITS | Encounter Summary ---
Author Organization [facility] Address [address] [place] [address] Phone Care Team Providers Care Call Center Coordinator Name Role Phone Radha Barrios MD Unavailable [phone] Chela Hernandez MD Unavailable [phone] Nae Leiva MD Unavailable [phone] Radha Barrios MD Primary Care Provider [phone] Encounter Details Date Type Department Care Team (Late st Contact Info) Description 05/28/2017 Prep for Surgery [facility] Orthopedics & Sports Medicine [address] [place] [address] Nae Leiva MD [address] [place] [address] Orthopedics & Sports Medicine, [facility] [place] [address] juan [email or web address] Social History Tobacco Use Types Packs/Day Years [...] on filedocumented in this encounter Care Teams Call Center Coordinator Relationship Specialty Start Date End Date Radha Barrios MD [address] [place] [phone] PCP - General Internal Medicine 02/22/17 Radha Barrios MD [address] [place] [phone] Historical LMR Provider 02/16/17 2 Chela Hernandez MD 4 [facility] Orthopedics & Sports Medicine, [facility] [place], [place] [phone] Historical LMR Provider 02/16/17 Nae Leiva MD 4 [facility] Orthopedics Sports [facility], [place], [place] [phone] juan Historical LMR Provider 02/16/17 05/06/21 documented as of this encounter Additional Source Comments The information contained in this document represents components of the legal health record. It is not the complete legal health record.[facility]
--- OUTSIDE RECORDS SUMMARY | 2025-02-10 12:23 | XMS_ITS | Clinical Summary ---
Author Organization [facility] Address [address] [phone] Phone Care Team Providers Care Place Change Roof Bolter Name Role Phone Radha Barrios MD Primary Care Provider [phone] Allergies Active Allergy Reactions Criticality Noted Date Comments Hoiwolm-Wlm-Hny Reductase Inhibitors Diarrhea 02/25/2017 Pt not sure [...] VACCINE (1 - 1-dose 75+ series) 09/03/2019 INFLUENZA VACCINE (#1) 2024 0, 03/10/2019, 02/06/2018 COVID-19 VACCINE (2 - 2024-2 6 season) 2024 06/01/2020 ZOSTER VACCINES Completed 02/26/2019, 12/16/2018, 08/28/2012 [...] file Insurance MEDICARE PART A & B [facility] SUPPLEMENT [place] MEDICARE PART A & B [facility] MEDIC[facility] SUPPLEMENT [facility] B [facility] MEDICARE SUPPLEMENT [facility] MEDICARE PART A & B [facility] EXTENSION MEDICARE SUPPLEMENT [facility] MEDICARE PART A & B [employer] MEDIC[place] [phone] MEDICARE PART A & B [facility] EXTENSION MEDICARE SUPPLEMENT [facility] MEDICARE PART A & B [facility] EXTENSION MEDICARE SUPPLEMENT [place] MEDICARE PART A & B [facility] MEDICARE SUPPLEMENT [facility] A & B [facility] EXTENSION MEDICARE SUPPLEMENT [facility] Advance Directives For more information, please contact: [phone] (9AM - 5PM [facility], Saturday-Saturday) * Full Code (Presumed) (Latest Code Status on File) Date Activated Date Inactivated Comments 05/29/2017 7:32 AM 05/29/2017 12:15 PM * Full Code (Presumed) Date Activated Date Inactivated Comments 04/03/2017 6:51 AM 04/03/2017 11:[address] Change Roof Bolter Relationship Specialty Start Date End Date Radha Barrios MD [address] [facility] [address] [place] [phone] PCP - General Internal Medicine 02/22/17 Additional Source Comments The information contained in this document represents components of the legal health record. It is not the complete legal health record.[facility]
--- OUTSIDE RECORDS SUMMARY | 2025-02-10 12:23 | XMS_ITS | Encounter Summary ---
Author Organization [facility] Address [address] [place] [address] Phone Care Team Providers Care Vibratory Pile Driver Name Role Phone Radha Barrios MD Unavailable [phone] Chela Hernandez MD Unavailable [phone] Nae Leiva MD Unavailable [phone] Radha Barrios MD Primary Care Provider [phone] Encounter Details Date Type Department Care Team (Late st Contact Info) Description 03/12/2017 Prep for Surgery [facility] Orthopedics & Sports Medicine [address] [place] [address] [phone] Nae Leiva MD [address] [place] [address] Orthopedics & Sports Medicine, [facility] [place] [address] juan [email or web address] Social History Tobacco Use Types Packs/Day Years [...] on filedocumented in this encounter Care Teams Vibratory Pile Driver Relationship Specialty Start Date End Date Radha Barrios MD [address] [place] [phone] PCP - General Internal Medicine 02/22/17 Radha Barrios MD [address] [place] [phone] Historical LMR Provider 02/16/17 2 Chela Hernandez MD [address] [place] [address] Orthopedics & Sports Medicine, [facility] [place] [address] Historical LMR Provider 02/16/17 Nae Leiva MD 4 [facility] Orthopedics Sports [facility], [facility]. [place], [place] [phone] juan Historical LMR Provider 02/16/17 05/06/21 documented as of this encounter Additional Source Comments The information contained in this document represents components of the legal health record. It is not the complete legal health record.[facility]
--- OUTSIDE RECORDS SUMMARY | 2025-02-23 20:00 | XMS_ITS | Clinical Summary ---
Author Organization Unknown Care Team Providers Care Television Journalist Name Role Phone PO PRAKASH KIRAN Unavailable Unavaila ble FECTEAU WATCH REPAIR PERSON, PHUONG Unavailable Unavailable KOREY RN, ALLY Unavailable Unavailable KEENA PT, PANKAJ Unavailable Unavailable Payers Payer Name Policy Type Policy Number Effective Date Expira tion Date MEDICARE.[facility] [id number] Problems Condition Name Condition Details Condition Category [...] HYPERCHOLEST EROLEMIA, UNSPECIFIED Active 10-28 00:00: 00 [employer] (CURRENT) USE OF INSULIN Active 10-28 00:00: 00 [employer] (CURRENT) USE OF SYSTEMIC STEROIDS Active 10-28 00:00: 00 [employer] (CURRENT) USE OF OPIATE ANALGESIC Active 10-28 [...] 10-27 00:00: 00 10-28 00:00 :00 No [id number] Per instruc tions Per instructio ns (route: oral) Med Classific ation: Analgesic , Anti-infl ammatory or Antipyret ic Dexcom G6 Sensor device 10-26 00:00: 00 10-28 00:00 :00 No [id number] Unavailable Per instruc tions Per instructio ns (route: miscellane ous) Med Classific ation: Medical Supplies and Durable Medical Equipment (DME) gabapentin 100 mg capsule 10-21 00:00: 00 10-28 00:00 :00 No [id number] Per instruc tions Per instructio ns (route: oral) Med Classific ation: Central Nervous System Agents amlodipine 10 mg tablet 10-19 00:00: 00 10-28 00:00 :00 No [id number] ESSENTIAL (PRIMARY) HYPERTENSIO N Per instruc tions DAILY Per instructio ns DAILY (route: oral) Med Classific ation: Cardiovas cular Therapy Agents Carin 2nd Gen Pen Needle 32 gauge x 5/32 10-19 00:00: 00 10-28 00:00 :00 No [id number] Per instruc tions INSULIN 5 TIMES DAILY Per instructio ns INSULIN 5 TIMES DAILY (route: miscellane ous) Med Classific ation: Medical Supplies and Durable Medical Equipment (DME) lisinopril 40 mg tablet 10-19 00:00: 00 10-28 00:00 :00 No [id number] ESSENTIAL (PRIMARY) HYPERTENSIO N Per instruc tions DAILY Per instructio ns DAILY (route: oral) Med Classific ation: Cardiovas cular Therapy Agents baclofen 10 mg tablet 10-15 00:00: 00 10-28 00:00 :00 No [id number] Per instruc tions Per instructio ns (route: oral) Med Classific ation: Locomotor System tramadol 50 mg tablet 10-15 00:00: 00 10-28 00:00 :00 No [id number] Per instruc tions Per instructio ns (route: oral) Med Classific ation: Analgesic , Anti-infl ammatory or Antipyret ic amoxicillin 875 mg tablet 10-13 00:00: 00 10-28 00:00 :00 No [id number] Per instruc tions Per instructio ns (route: oral) Med Classific ation: Anti-Infe ctive Agents chlorhexidi ne gluconate 0.12 % mouthwash 10-13 00:00: 00 10-28 00:00 :00 No [id number] Per instruc tions Per instructio ns (route: mucous membrane) Med Classific ation: Mouth-Thr oat-Denta l - Preparati ons cyclobenzap rine 10 mg tablet 10-09 00:00: 00 10-28 00:00 :00 No [id number] Per instruc tions Per instructio ns (route: oral) Med Classific ation: Locomotor System tadalafil 10 mg tablet 10-08 00:00: 00 10-28 00:00 :00 No [id number] MALE ERECTILE DYSFUNCTION , UNSPECIFIED Per instruc tions EVERY OTHER DAY NEEDED FOR SEXUAL ACTIVITY APPROXIMAT GONZALEZ 30 MINUTES PER 24 HOURS Per instructio ns EVERY OTHER DAY NEEDED FOR SEXUAL ACTIVITY APPROXIMAT GONZALEZ 30 MINUTES PER 24 HOURS (route: oral) Med Classific ation: Drugs to treat Erectile Dysfuncti on Ketostix strips 10-05 00:00: 00 10-28 00:00 :00 No [id number] 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 Per instruc tions AND DISCARD 1 TEST STRIP EVERY DAY NEEDED Per instructio ns AND DISCARD 1 TEST STRIP EVERY DAY NEEDED (route: miscellane ous) Med Classific ation: Medical Supplies and Durable Medical Equipment (DME) acetaminoph en 325 mg tablet 10-28 00:00: 00 Yes [id number] PAIN 2 tablet EVERY 4 HOURS 2 tablet EVERY 4 HOURS (route: oral) Med Classific ation: Analgesic , Anti-infl ammatory or Antipyret ic amlodipine 10 mg tablet 10-28 00:00: 00 Yes [id number] LOWERS BLOOD PRESSURE 1 tablet DAILY 1 tablet DAILY (route: oral) Med Classific ation: Cardiovas cular Therapy Agents atorvastati n 20 mg tablet 10-28 00:00: 00 Yes [id number] LOWERS CHOLESTEROL 1 tablet DAILY 1 tablet DAILY (route: oral) Med Classific ation: Cardiovas cular Therapy Agents cholecalcif swapna (vitamin D3) 25 mcg (1,000 unit) tablet 10-28 00:00: 00 Yes [id number] SUPPLEMENT 1 tablet DAILY 1 tablet DAILY (route: oral) Med Classific ation: Electroly te Balance-N utritiona l Products gabapentin 100 mg tablet 10-28 00:00: 00 Yes [id number] PAIN MANAGEMENT 1 tablet BEDTIME 1 tablet BEDTIME (route: oral) Med Classific ation: Central Nervous System Agents hydrochloro thiazide 12.5 mg tablet 10-28 00:00: 00 Yes [id number] FLUID RETENTION 1 tablet DAILY 1 tablet DAILY (route: oral) Med Classific ation: Cardiovas cular Therapy Agents insulin lispro (U-100) 100 unit/mL subcutaneou s pen 10-28 00:00: 00 Yes [id number] DIABETES Per instruc tions WITH MEALS Per instructio ns WITH MEALS (route: subcutaneo ) Med Classific ation: Endocrine lisinopril 40 mg tablet 10-28 00:00: 00 Yes [id number] LOWERS BLOOD PRESSURE 1 tablet DAILY 1 tablet DAILY (route: oral) Med Classific ation: Cardiovas cular Therapy Agents morphine 15 mg immediate release tablet 10-28 00:00: 00 Yes [id number] MODERATE PAIN 1 tablet EVERY 6 HOURS 1 tablet EVERY 6 HOURS (route: oral) Med Classific ation: Analgesic , Anti-infl ammatory or Antipyret ic omeprazole 20 mg capsule,del ayed release 10-28 00:00: 00 Yes [id number] GERD 1 capsule DAILY 1 capsule DAILY (route: oral) Med Classific ation: Gastroint estinal Therapy Agents prednisone 10 mg tablet 10-28 00:00: 00 Yes [id number] POLYMYALGIA 1 tablet DAILY 1 tablet DAILY (route: oral) Med Classific ation: Endocrine Tresiba FlexTouch U-100 insulin 100 unit/mL (3 mL) subcutaneou s pen 10-28 00:00: 00 Yes [id number] DIABETES 15 unit BEDTIME 15 unit BEDTIME (route: subcutaneo us) Med Classific ation: Endocrine naproxen 500 mg tablet 10-28 00:00: 00 Yes [id number] PAIN 1 tablet 2 TIMES DAILY 1 tablet 2 TIMES DAILY (route: oral) Med Classific ation: Analgesic , Anti-infl ammatory or Antipyret ic naproxen 500 mg tablet 11-18 00:00: 00 12-18 23:59 :00 No [id number] PAIN 1 tablet 2 TIMES DAILY 1 tablet 2 TIMES DAILY (route: oral) Med Classific ation: Analgesic , Anti-infl ammatory or Antipyret ic oxycodone 5 mg tablet 11-18 00:00: 00 Yes [id number] PAIN 1 tablet DAILY 1 tablet DAILY (route: oral) Med Classific ation: Analgesic , Anti-infl ammatory or Antipyret ic tramadol 50 mg tablet 12-18 00:00: 00 Yes [id number] SEVERE PAIN 1 tablet 3 TIMES DAILY 1 tablet 3 TIMES DAILY (route: oral) Med Classific ation: Analgesic , Anti-infl ammatory or Antipyret ic Vital Signs Vital Name Observation Time Observation Value Commen ts Temperature 2025-02-08 09:14:00.000 97.6 [degF] Temperature 2025-01-25 11:23:00.000 98.2 [degF] Temperature 2025-01-14 10:29:00.000 97.2 [degF] Temperature 2025-01-07 10:24:00.000 98 [degF] Temperature 2024-12-31 09:35:00.000 98.3 [degF] Pulse 2025-02-08 09:14:00.000 72 /min Pulse 2025-01-25 11:23:00.000 72 /min Pulse 2025-01-14 10:29:00.000 69 /min Pulse 2025-01-07 10:24:00.000 74 /min Pulse 2024-12-31 09:35:00.000 72 /min O2 Saturation (%) 2025-02-08 09:14:00.000 99 % O2 Saturation (%) 2025-01-14 10:29:00.000 97 % Respirations 2025-02-08 09:14:00.000 18 /min Respirations 2025-01-25 11:23:00.000 18 /min Respirations 2025-01-14 10:29:00.000 18 /min Respirations 2025-01-07 10:24:00.000 18 /min Respirations 2024-12-31 09:35:00.000 18 /min Systolic Blood Pressure 2025-02-08 09:14:00.000 108 mm [Hg] Systolic Blood Pressure 2025-01-25 11:23:00.000 118 mm [Hg] Systolic Blood Pressure 2025-01-14 10:29:00.000 108 mm [Hg] Systolic Blood Pressure 2025-01-07 10:24:00.000 106 mm [Hg] Systolic Blood Pressure 2024-12-31 09:35:00.000 114 mm [Hg] Diastolic Blood Pressure 2025-02-08 09:14:00.000 54 mm [Hg] Diastolic Blood Pressure 2025-01-25 11:23:00.000 60 mm [Hg] Diastolic Blood Pressure 2025-01-14 10:29:00.000 60 mm [Hg] Diastolic Blood Pressure 2025-01-07 10:24:00.000 62 mm [Hg] Diastolic Blood Pressure 2024-12-31 09:35:00.000 70 mm [Hg] Plan of Treatment Planned Activity Planned Date Details Comments Future Scheduled Test AGENCY MAY PERFORM A RESUMPTION OF CARE VISIT FOLLOWING ANY HOSPITAL ADMISSION. PT TO EVALUATE, OBSERVE / ASSESS, AND MONITOR, WATCH REPAIR PERSON TO OBSERVE AND MONITOR, PROVIDE SKILLED THERAPEUTIC INTERVENTION, ACTIVITY, EDUCATION, AND TRAINING TO ADDRESS; [code = AGENCY MAY PERFORM A RESUMPTION OF CARE VISIT FOLLOWING ANY HOSPITAL ADMISSION. PT TO EVALUATE, OBSERVE / ASSESS, AND MONITOR, WATCH REPAIR PERSON TO OBSERVE AND MONITOR, PROVIDE SKILLED THERAPEUTIC INTERVENTION, ACTIVITY, EDUCATION, AND TRAINING TO ADDRESS;] Future Scheduled Test SIT TO/FRO M STAND TRANSFERS (PT/WATCH REPAIR PERSON) [code = SIT TO/FROM STAND TRANSFERS (PT/WATCH REPAIR PERSON)] Future Scheduled Test PT/WATCH REPAIR PERSON TO PROVIDE STAIR TRAINING [code = PT/WATCH REPAIR PERSON TO PROVIDE STAIR TRAINING] Future Scheduled Test NEUROMUSCU LAR RE-EDUCATION / BALANCE / POSTURAL CONTROL (PT) [code = NEUROMUSCULAR RE-EDUCATION / BALANCE / POSTURAL CONTROL (PT)] Future Scheduled Test THERAPEUTI C EXERCISES AND ESTABLISHING A HOME EXERCISE PROGRAM (PT/WATCH REPAIR PERSON) [code = THERAPEUTIC EXERCISES AND ESTABLISHING A HOME EXERCISE PROGRAM (PT/WATCH REPAIR PERSON)] Future Scheduled Test PT/WATCH REPAIR PERSON TO IDENTIFY FALL RISK FACTORS; EDUCATE THE PATIENT/CAREGIVER ON WAYS TO REDUCE FALL RISK FACTORS AND ESTABLISH HOME EXERCISE PROGRAM TO MINIMIZE FALL RISK. MAY TEACH THE PATIENT FLOOR RECOVERY WHEN CLINICALLY APPROPRIATE [code = PT/WATCH REPAIR PERSON TO IDENTIFY FALL RISK FACTORS; EDUCATE THE PATIENT/CAREGIVER ON WAYS TO REDUCE FALL RISK FACTORS AND ESTABLISH HOME EXERCISE PROGRAM TO MINIMIZE FALL RISK. MAY TEACH THE PATIENT FLOOR RECOVERY WHEN CLINICALLY APPROPRIATE] Future Scheduled Test PT / WATCH REPAIR PERSON T O MONITOR AND EDUCATE ON OXYGEN SATURATION DURING ADLS/IADLS, NOTIFY PHYSICIAN AND/OR THE RN CLINICAL HOSTLER HELPER FOR PHYSICIAN NOTIFICATION AND IF O2 SATS BELOW PHYSICIAN ORDERED PARAMETERS AFTER 10 MIN OF REST [code = PT / WATCH REPAIR PERSON TO MONITOR AND EDUCATE ON OXYGEN SATURATION DURING ADLS/IADLS, NOTIFY PHYSICIAN AND/OR THE RN CLINICAL HOSTLER HELPER FOR PHYSICIAN NOTIFICATION AND IF O2 SATS BELOW PHYSICIAN ORDERED PARAMETERS AFTER 10 MIN OF REST] Future Scheduled Test PT / WATCH REPAIR PERSON M AY EDUCATE ON PAIN MANAGEMENT CLINICALLY INDICATED, INCLUDING NON-PHARMACOLOGICAL PAIN REDUCTION TECHNIQUES AND USE OF CRYOTHERAPY, HEAT AND/OR FOAM ROLLING UP TO 20 MIN AT A TIME FOR PAIN MANAGEMENT 3-5 TIMES PER DAY TO PAINFUL AREAS [code = PT / WATCH REPAIR PERSON MAY EDUCATE ON PAIN MANAGEMENT CLINICALLY INDICATED, INCLUDING NON-PHARMACOLOGICAL PAIN REDUCTION TECHNIQUES AND USE OF CRYOTHERAPY, HEAT AND/OR FOAM ROLLING UP TO 20 MIN AT A TIME FOR PAIN MANAGEMENT 3-5 TIMES PER DAY TO PAINFUL AREAS] Future Scheduled Test PT/WATCH REPAIR PERSON TO PROVIDE GAIT TRAINING FOR IMPROVED MOBILITY AND /OR TO NORMALIZE GAIT PATTERN [code = PT/WATCH REPAIR PERSON TO PROVIDE GAIT TRAINING FOR IMPROVED MOBILITY AND /OR TO NORMALIZE GAIT PATTERN] Goal 2024-12-23 Patient Goal - T O WALK WITHOUT WALKER. TO IMPROVE PAIN. Goal Patient Goal - T O WALK WITHOUT WALKER. TO IMPROVE PAIN. FIND OUT WHAT IS GOING ON WITH LE/PAIN Goal Provider Goal - Goal Provider Goal - PT STG: PATIENT WILL DEMONSTRATE IMPROVED ABILITY TO PERFORM SIT TO/FROM STAND TRANSFERS TO REDUCE THE RISK OF SKIN BREAKDOWN AND REDUCE FALL RISK FROM CGA TO IND WITHIN 9 WEEKS Goal Provider Goal - PT LTG: PATIENT WILL DEMONSTRATE IMPROVED ABILITY TO SAFELY NEGOTIATE 1-4 STAIRS USING LRAD AND RAILINGOGOING FROM MIN ASSIST TO SUP IN ORDER TO ACCESS COMMUNITY WITHIN 9 WEEKS Goal Provider Goal - PT LTG: PATIENT WILL DEMONSTRATE REDUCED FALL RISK EVIDENCED BY DUAL TASK TUG TEST IMPROVING FROM NOT TESTED TO 20 SECONDS WITHIN 9 WEEKS Goal Provider Goal - PT LTG: PATIENT WILL DEMONSTRATE INDEPENDENCE IN ABILITY TO PERFORM/ PROGRESS HEP INDEPENDENTLY WITH OR WITHOUT EXERCISE PACKET WITHIN 9 WEEKS IN ORDER TO MAINTAIN/IMPROVE STRENGTH AND FLEXIBILITY FOLLOWING DISCHARGE FROM SERVICES Goal Provider Goal - PT LTG: PATIENT/CAREGIVER WILL DEMONSTRATE ADHERENCE TO FALL REDUCTION SELF-MANAGEMENT AND REDUCING FALL RISK FACTORS TO MINIMIZE FALL RISK BY END OF EPISODE. Goal Provider Goal - PT LTG: PATIENT WILL MAINTAIN OXYGEN SATURATION WITHIN PHYSICIAN ORDERED PARAMETERS THROUGHOUT EPISODE OF CARE. Goal Provider Goal - PT GOAL: PATIENT WILL DEMONSTRATE UNDERSTANDING OF PAIN MANAGEMENT TECHNIQUES EVIDENCED BY REDUCTION IN PAIN BY 50% WITHIN 30 MINUTES OF ONSET WITHIN 9 WEEKS Goal Provider Goal - PT LTG: PATIENT WILL DEMONSTRATE REDUCED FALL RISK EVIDENCED BY IMPROVED SELF- SELECTED WALKING SPEED (SSWS CUT SCORE 0.6 TO 0.9 INDICATES MODERATE FALL RISK, 0.6 M/S INDICATES HIGH FALL RISK) FROM 0.8 M/S TO 1.0 M/S WITHIN 9 WEEKS Encounters Start Date/Time End Date/Time Encounter Type Admission Type Attending [facility] Department Encounter ID Discharge Date Discharge Status Discharge Condition Discharge Reason Percent Goals Met 2024-12-27 00:00:00 2025-02-24 00:00:00 Outpatient PANKAJ CONNER [facility] [id number]
== END 2025-02-10 11:22 | disposition home or self-care (01) ==
LOC: HO.HNS 10:26
PROVIDERS: PCP Internal Medicine; Referring Provider Orthopaedic Surgery; Visit Provider Physician Assistant
DX: R29.898 Other symptoms and signs involving the musculoskeletal system (principal)
CPT/HCPCS: 99204

== ENCOUNTER → 2025-02-10 10:25 | Outpatient (BNVA) | payer MEDICARE, OTHER, MEDICAID, SELFPAY | PROVIDERS: PCP Internal Medicine; Referring Provider Orthopaedic Surgery; Visit Provider Physician Assistant | DX: R29.898 Other symptoms and signs involving the musculoskeletal system (principal); M48.061 Spinal stenosis, lumbar region without neurogenic claudication; E11.65 Type 2 diabetes mellitus with hyperglycemia | CPT/HCPCS: 99202 ==

== ENCOUNTER 2025-02-10 11:29 | Outpatient (REF) | payer MEDICARE, OTHER, MEDICAID, SELFPAY ==
[2025-02-10 14:18] LABS: Hemoglobin A1C 169.3751 umol/L; Total Hemoglobin (HGBA1C) 2765.1849 umol/L
== END 2025-02-10 11:30 | disposition home or self-care (01) ==
LOC: HO.10HDL 11:29
PROVIDERS: Visit Provider Physician Assistant
DX: E11.65 Type 2 diabetes mellitus with hyperglycemia (principal); Z79.4 Long term (current) use of insulin
CPT/HCPCS: 36415; 83036; 99202

== ENCOUNTER 2025-03-16 08:51 | Outpatient (AMB) | payer MEDICARE, OTHER, MEDICAID, SELFPAY ==
[2025-03-16 09:07] VITALS: BP 118/60; PULSE 86; TEMP 36.2; O2SAT 96; BMI 21.8
--- NOTE | 2025-03-16 09:07 | MHC.PC.OV ---
Vital Signs 03/16/25 09:07 Height 6 ft Weight 160 lb 11.472 oz BMI 21.8 BP 118/60 Blood Pressure Location Lt brachial Position Sitting Pulse 86 Pulse Source Pulse Oximeter Temp 97.1 F Temp Source Temporal Artery Scan Pulse Oximetry (%) 96 Oxygen Delivery Method Room Air Intake Visit Reasons: follow up Allergies meloxicam Allergy (Unknown, Verified 03/16/25 09:09) Unknown simvastatin Allergy (Unknown, Verified 03/16/25 09:09) Unknown Medication List - Last Reconciled 03/16/25 by Radha Barrios MD acetaminophen 325 mg PO QID PRN alcohol swabs (BD Alcohol Swabs) pad topical amlodipine 10 mg PO DAILY atorvastatin 20 mg PO DAILY blood-glucose sensor (Dexcom G6 Sensor device) As directed blood-glucose transmitter (Dexcom G6 Transmitter device) As directed cholecalciferol (vitamin D3) 25 mcg PO DAILY gabapentin 100 mg PO BEDTIME hydrochlorothiazide 12.5 mg PO DAILY insulin degludec (Tresiba FlexTouch U-100 insulin) 15 units subcut DAILY insulin lispro (Admelog SoloStar U-100 Insulin lispro) 1 sliding scale dose subcut USEASDIRECTD lisinopril 40 mg PO DAILY naproxen 500 mg PO BID PRN omeprazole 20 mg PO DAILY pen needle, diabetic As directed sennosides-docusate sodium 8.6-50 mg (Senna Plus) 2 tab-caps (2 x 8.6-50 mg) PO BEDTIME tadalafil 10 mg PO Q OTHER DAY PRN tramadol 50 mg PO TID PRN 15 days walker As directed Tobacco use date assessed: 03/16/25 Fall risk assessment: 1 Fall in past year Last assessed Fall Risk: 03/16/25 Dental Screening Dental Screen Date: 03/16/25 Did you have a dental visit in the last 12 months?: Yes Did you have a dental problem in the last 6 months where you did not have access to dental care?: No Was dental information given to patient?: Patient has dentist HPI HPI Comments History of Present Illness Details History of Present Illness The patient is an 79-year-old male presenting for a follow-up visit for management of multiple chronic conditions. His past medical history is significant for diabetes mellitus, hypercholesterolemia, hypertension, gastroesophageal reflux disease, polymyalgia rheumatica, osteopenia with the last bone density scan in October 2020, and left hip avascular necrosis. The patient's primary complaints include left leg weakness, for which he uses a walker, and associated pain. He has a history of left hip osteoarthritis and was evaluated by orthopedics, which led to a neurosurgery referral due to the weakness. An MRI revealed moderate to severe spinal stenosis at L4-L5. He was seen at a spine center on February 10, and there is a plan for a left L3-L4-L5 decompression pending a nerve conduction test to rule out polyneuropathy. For diabetes, the patient is followed by endocrinology, uses a continuous glucose monitor (CGM), and is treated with Tresiba and Admelog. His HbA1c was 7.8% on February 10 and 8.2% on March 08. A C-peptide level on March 08 was 0.19. Regarding his renal function, labs from March 08 showed a BUN of 50 and creatinine of 1.5, an increase from a previous value of 0.9. The patient reports taking a lot of Advil for pain. His lipids are well-controlled with an LDL of 58 on March 08 and 55 on a more recent test. He also reports significant constipation, for which he has been taking Colace without relief. He recently experienced a sudden, severe pain in his upper abdomen/chest area during the night. For health maintenance, his last Cologuard was in 2018, and he has now graduated from screening. He has received his flu shot. Health Maintenance - Colon cancer screening: Last Cologuard was in 2018, patient has graduated from screening. - Bone density: Last screening was in October 2020, revealing osteopenia. - Vaccinations: Has received the influenza vaccine. Social History - Functional status: Uses a walker for ambulation due to left leg weakness. Results - Labs from March 08: C-peptide 0.19, glucose 125 mg/dL, BUN 50, creatinine 1.5 mg/dL, electrolytes normal, liver function normal, total cholesterol 138 mg/dL, LDL 58 mg/dL, triglycerides 64 mg/dL, HbA1c 8.2%. - Labs from February 10: HbA1c 7.8%. - Labs from January 08: Hemoglobin 13.3, Hematocrit 39.4 (mild anemia). - Labs from February (other facility): LDL 55 mg/dL. - Imaging: MRI shows moderate to severe spinal stenosis at L4-L5. - Procedures: Last bone density scan was in October 2020. Last Cologuard was in 2019. [facility] Medical History Left leg weakness Osteopenia Erectile dysfunction Type 2 diabetes mellitus with hyperglycemia Polymyalgia rheumatica Thrombocytopenia Hypercholesterolemia GERD (gastroesophageal reflux disease) Carpal tunnel syndrome Diabetic neuropathy Hypertension Surgical History History of carpal tunnel release Family History Father Hypertension CVD (cardiovascular disease) Mother Cancer Social History Housing: House Alcohol intake: current Alcohol intake frequency: 0-2 drinks per day Alcohol type: hard liquor Patient Tobacco Use Status: Former Tobacco user Tobacco use type: Cigarette Years Smoked: quit 2005 e-Cigarette/Vaping Use: Never Used Second Hand Smoke Exposure: Yes service: No Current occupational status: retired Cognitive needs: No Hearing needs: No Vision needs: Yes (Glasses) Questionnaire PHQ-9 Over the last 2 weeks, how often have you been bothered by any of the following problems? 1. Little interest or pleasure in doing things: nearly every day 2. Feeling down, depressed, or hopeless: nearly every day 3. Trouble falling or staying asleep, or sleeping too much: nearly every day 4. Feeling tired or having little energy: nearly every day 5. Poor appetite or overeating: nearly every day 6. Feeling bad about yourself - or that you are a failure or have let yourself or your family down: nearly every day 7. Trouble concentrating on things, such as reading the newspaper or watching television: not at all 8. Moving or speaking so slowly that other people could have noticed. Or the opposite - being so fidgety or restless that you have been moving around a lot more than usual: nearly every day 9. Thoughts that you would be better off or of hurting yourself in some way: not at all Total score: 21 Source: Developed by Drs. Sunday Delgado, Marilyn Kennedy, Marco Caldwell and colleagues, with an educational wendie from [employer]. Thrive Questionnaire Date Thrive assessed: 11/13/24 I am a: Patient What is your living situation today?: I have a steady place to live Within the past 12 months, did the food you bought not last and you didn't have the money to get more?: Never true Within the past 12 months, did you worry whether your food would run out before you got money to buy more?: Never true Do you have trouble paying for medicines?: No Do you have trouble getting transportation to medical appointments?: No Do you have trouble paying your heating and electricity bill?: No Do you have trouble taking care of your child, family member or friend?: No Do you have trouble with day-to-day activities such as bathing, preparing meals, shopping, managing finances, etc.?: No Are you currently unemployed and looking for a job?: No Are you interested in more education?: No Please select the resources that you would like help with: None Currently or been in a relationship where the following occur: No concerns reported THRIVE Score: 0 AUDIT C Alcohol Use Questionnaire (AUDIT-C) 1. How often do you have a drink containing alcohol?: Never 3. How often do you have six or more drinks on one occasion?: Never Total Score: 0 GWYN-7 AMB Questionnaire GWYN-7 Date GWYN - 7 assessed: 05/05/24 Feeling nervous, anxious, or on edge: 1 = Several days Not being able to stop or control worryin = Several days Worrying too much about different things: 1 = Several days Trouble relaxin = Several days Being so restless that it is hard to sit still: 1 = Several days Becoming easily annoyed or irritable: 1 = Several days Feeling afraid as if something awful might happen: 1 = Several days Total GWYN-7 score (0-4 normal; 5-9 mild; 10-14 moderate; 15-21 severe): 7 Source: Developed by Drs. Sunday Delgado, Marilyn Kennedy, Marco Caldwell and colleagues, with an educational wendie from [employer]. Review of Systems Narrative Review of Systems - Neurological: Reports left leg weakness and pain that radiates down the entire leg. - Gastrointestinal: Reports constipation, which is unrelieved by Colace. - Chest: Reports a recent episode of sudden, severe upper midsternal pain in the middle of the night. Physical exam (Primary Care) Vital Signs: Last Vital Signs Temp 97.1 F 03/16/25 09:07 Pulse 86 03/16/25 09:07 BP 118/60 03/16/25 09:07 Pulse Ox 96 03/16/25 09:07 Oxygen Delivery Method Room Air 03/16/25 09:07 BMI result Body Mass Index 21.8 Tobacco/Smoking Status: Tobacco use Status Tobacco use date assessed 03/16/25 03/16/25 09:13 Patient Tobacco Use Status Former Tobacco user 03/16/25 09:13 Tobacco use type Cigarette 03/16/25 09:13 e-Cigarette/Vaping Use Never Used 03/16/25 09:13 PHQ-9: PHQ-9 Score PHQ-9: Total score 21 03/16/25 09:21 Thrive Assessment: Date of Thrive Assessment Date Thrive assessed 11/13/24 03/16/25 09:13 Currently or been in a relationship where the following occur: No concerns reported Narrative Physical Exam - Abdomen: On palpation, no tenderness reported in the lower or mid-epigastric area; tenderness elicited in the upper epigastric area. Const General: alert; No acute distress Eyes Conjunctivae: conjunctivae normal Resp Auscultation: clear to auscultation bilaterally Cardio Rate: regular rate Rhythm: regular rhythm GI Inspection: Yes normal to inspection Office Procedures Flu Questionnaire Does the patient have a severe egg allergy?: No Does the patient have severe life threatening allergies?: No Does the patient have a fever or illness today?: No Has the patient ever had Guillain-Enfield Syndrome?: No Has the patient ever had any past reaction to a flu shot?: No Immunizations Fluarix [id number] (PF) 45 mcg (15 mcg x 3)/0.5 mL IM syringe Performing Provider: Radha Barrios MD [facility] Administered by: Julia Almodovar CMA on 03/16/25 09:17 Dose Route Admin Location Dispensed Lot Number Expiration Date NDC Human Resources Administrator 0.5 mL IM Left Deltoid 0.5 mL [id number] 10/26/25 58286-336-71 QThru VIS Given Date VIS Provided VIS Publication Date 03/16/25 Single Vaccine 24 Eligibility Eligibility Date Funding Source Not [facility] Eligible 03/16/25 Private Coding Level of Care Code Est Pt Level 4 (99928) Complex EM visit Add On G2211 Diagnoses Type 2 diabetes mellitus with hyperglycemia, with long-term current use of insulin E11.65; Z79.4 Diabetes mellitus [facility] insulin use: with [facility] use Essential hypertension I10 Hypertension type: essential hypertension Hypercholesterolemia E78.00 Gastroesophageal reflux disease without esophagitis K21.9 Esophagitis presence: without esophagitis Polymyalgia rheumatica M35.3 Hip pain, left M25.552 Lumbar canal stenosis M48.061 Constipation K59.00 Leg pain, left M79.605 Renal insufficiency N28.9 Assessment & Plan Assessment & Plan (1) Type 2 diabetes mellitus with hyperglycemia: Comment: [facility] Dr. 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 Last hemoglobin A1c was 7.8. Patient is being seen by Endocrinology using CGM to control the insulin on Tresiba Admelog (2) Hypertension: Code(s): I10 - Essential (primary) hypertension Category: Medical Qualifiers: Hypertension type: essential hypertension Qualified Code(s): I10 - Essential (primary) hypertension Plan: Continue with blood pressure medication. Decrease salt intake and exercise takes amlodipine 10 mg once a day hydrochlorothiazide 12.5 mg once a day and lisinopril 40 mg once a day (3) Hypercholesterolemia: Code(s): E78.00 - Pure hypercholesterolemia, unspecified Category: Medical Plan: Avoid fried foods, chicken skin, eggs, butter margarine, pastries and meat. Be it pork or beef they have a lot of cholesterol LDL goal of less than 70 and triglyceride of less than 150 February blood work in another hospital 55 (4) GERD (gastroesophageal reflux disease): Code(s): K21.9 - Gastro-esophageal reflux disease without esophagitis Category: Medical Qualifiers: Esophagitis presence: without esophagitis Qualified Code(s): K21.9 - Gastro-esophageal reflux disease without esophagitis Plan: Avoid the foods that causes that usually spicy foods, tomato products, juices, coffee, soda and foods that your sensitive to. After eating do not lie down, allow 3-4 hours before in lie down. And keep the head of bed above 30 degrees to avoid the acid from going up. (5) Polymyalgia rheumatica: Comment: 10/2010 Code(s): M35.3 - Polymyalgia rheumatica Category: Medical Plan: Continue to monitor (6) Hip pain, left: Code(s): M25.552 - Pain in left hip Category: Medical Plan: Patient does have arthritis but the bigger problem of left leg weakness (7) Lumbar canal stenosis: Code(s): M48.061 - Spinal stenosis, lumbar region without neurogenic claudication Category: Medical Plan: Patient is being followed up by neurosurgeon and has a planned surgery but 1st to check for polyneuropathy with the upcoming nerve conduction test (8) Constipation: Code(s): K59.00 - Constipation, unspecified Category: Medical (9) Leg pain, left: Code(s): M79.605 - Pain in left leg Category: Medical (10) Renal insufficiency: Code(s): N28.9 - Disorder of kidney and ureter, unspecified Category: Medical Plan Plan Patient was informed and verbally consented to the use of an ambient scribe for clinic note documentation during this visit. 1. Acute Kidney Injury The patient's creatinine was noted to be 1.5 mg/dL on March 08, which is an acute rise from his baseline of 0.9 mg/dL. This is attributed to his frequent use of Advil. The patient was strongly advised to stop taking all NSAIDs, including Advil, Motrin, and Aleve, due to their nephrotoxic effects. Tylenol was recommended as a safer, though weaker, alternative for pain. Plan is to repeat kidney function tests in 1-2 weeks to monitor the creatinine level. The patient was also instructed to maintain adequate fluid intake. 2. Lumbar Spinal Stenosis With Left Leg Weakness The patient's left leg weakness is attributed to moderate to severe L4-L5 spinal stenosis, as seen on MRI. He is being followed by a neurosurgeon who is planning a surgical decompression. However, a nerve conduction test is required beforehand to rule out diabetic polyneuropathy as a contributing or primary cause of his symptoms, as surgery would be futile if the nerve is non-functional due to diabetes. An attempt was made to expedite the nerve conduction test, which is currently scheduled for April. 3. Pain For his leg pain, likely neuropathic in nature, Gabapentin will be prescribed, starting with a low dose at bedtime. The patient will follow up to report its effectiveness, with the understanding that the dose can be increased. Tylenol was recommended for general pain, as NSAIDs are now contraindicated due to his acute kidney injury. 4. Constipation The patient reports constipation, with Colace being ineffective. A prescription for a combination senna-docusate medication will be sent to his pharmacy. He was instructed to start with one tablet at bedtime and increase to two if needed. 5. Diabetes Mellitus The patient is followed by endocrinology for his diabetes and uses a CGM to manage his insulin ([employer]). His most recent HbA1c was 7.8% in January and 8.2% in February. The importance of glycemic control was highlighted in the context of ruling out diabetic polyneuropathy as a cause for his leg weakness. 6. Hypertension Continue current regimen of amlodipine 10mg, hydrochlorothiazide 12.5mg, and lisinopril 40mg daily. 7. Hypercholesterolemia The patient's LDL is well-controlled at 55-58 mg/dL, meeting the goal of less than 70 mg/dL. Continue current management and monitoring. Discussion Notes I discussed with the patient the results of his recent blood work from March 08, specifically the elevated creatinine of 1.5 mg/dL, which indicates acute kidney injury. I explained that his heavy use of Advil is the likely cause and stressed the importance of stopping all NSAID medications immediately to prevent further kidney damage. We discussed using Tylenol as a safer pain reliever, though it is less potent. We will need to repeat his kidney function tests in one to two weeks. I also explained the neurosurgeon's rationale for ordering a nerve conduction test prior to considering spine surgery for his leg weakness. I clarified that if his symptoms are caused by nerve damage from his diabetes (polyneuropathy), then surgery on his back would not resolve the weakness. Given his frustration with the wait, I contacted the neurology office to request an earlier appointment for the test. We discussed new prescriptions for his constipation (Senna-S) and nerve pain (Gabapentin), including starting instructions and titration. Patient Instructions - Stop taking all Advil, Motrin, Aleve, ibuprofen, or any similar pain relievers immediately, as they can harm your kidneys. - For pain, you may use Tylenol. It is safer for your kidneys. You can take two 500 mg pills up to three times a day. - You will need to have blood work done in 1 to 2 weeks to check on your kidney function. You can have this done here at the clinic. - Drink plenty of fluids to help your kidneys. - For constipation, start taking the new prescription (Senna-S), one tablet at bedtime. If you do not have a bowel movement in the morning, you can increase to two tablets at bedtime. - For your leg pain, start taking the new prescription for Gabapentin. Take one pill at bedtime to start. Let me know if it is helping, as we can adjust the dose. - Continue with your other medications for blood pressure, cholesterol, and diabetes as prescribed. - We have requested an earlier appointment for your nerve conduction test and will follow up. Orders: Orders Influenza [id number] Immunization Today Z23 - Encounter for immunization Basic Metabolic Panel Today N28.9 - Disorder of kidney and ureter, unspecified Medications: New sennosides-docusate sodium 8.6-50 mg (Senna Plus) 2 tab-caps (2 x 8.6-50 mg) PO BEDTIME 60 tabs 3RF gabapentin 100 mg PO BEDTIME 30 caps 2RF M79.605 - Pain in left leg
--- OUTSIDE RECORDS SUMMARY | 2025-03-16 18:12 | XMS_ITS | Encounter Summary ---
Author Organization [facility] Address [address] [place] [address] Phone Care Team Providers Care Retail Salesworker Name Role Phone Radha Barrios MD Unavailable [phone] Chela Hernandez MD Unavailable [phone] Nae Leiva MD Unavailable [phone] Radha Barrios MD Primary Care Provider [phone] Encounter Details Date Type Department Care Team (Late st Contact Info) Description 05/28/2017 Prep for Surgery [facility] [address] [place] [id number] Nae Leiva MD [address] [place] [address] Orthopedics & Sports Medicine, [facility] [place] [address] [email or web address] Social History Tobacco Use Types Packs/Day Years [...] on filedocumented in this encounter Care Teams Retail Salesworker Relationship Specialty Start Date End Date Radha Barrios MD [address] [place] [phone] PCP - General Internal Medicine 02/22/17 Radha Barrios MD [address] [place] [id number] Historical LMR Provider 02/16/17 2 Chela Hernandez MD 4 [facility], [facility] [place], [place] [id number] Historical LMR Provider 02/16/17 Nae Leiva MD 4 [facility] Sports [facility], [place], [place] [id number] juan Historical LMR Provider 02/16/17 05/06/21 documented as of this encounter Additional Source Comments The information contained in this document represents components of the legal health record. It is not the complete legal health record.[facility]
--- OUTSIDE RECORDS SUMMARY | 2025-03-16 18:12 | XMS_ITS | Patient Health Record ---
Author Organization [facility] Address [address] [place] [address] Care Team Providers Care Government Affairs Specialist Name Role Phone Radha Barrios MD Primary Care Provider Sunday Yates [phone] Allergies Allergen (clinical drug ingredient) Drug/Non Drug Allergy documented on EMR Reaction Allergy Type Onset Date Status statin? (uncoded) Unknown Allergy Ac tive Reason For Referral No Information Medications Medication SIG (Take, Route, Frequency, Duration) Notes Start Date End Date Status predniSONE 1 MG Tablet 1 to -05/10 table t Orally as directed/ tier levell Active NovoLOG 100 UNIT/ML Solution as directed Subcutaneous as directed Active Atorvastatin Calcium 20 MG Tablet 1 tablet Orally Once a day; Duration: 30 day(s) Active Lisinopril 40 MG Tablet 1 tablet Orally Once a day; Duration: 30 day(s) Active Omeprazole 20 MG Capsule Delayed Release 1 capsule Orally Once a day; Duration: 30 day(s) Active Toujeo Max SoloStar 300 UNIT/ML Solution Pen-injector 20 units as directed Subcutaneous once a day Active amLODIPine Besylate 2.5 MG Tablet 1 tablet Orally Once a day; Duration: 30 day(s) Active Vitamin D 2000 UNIT Tablet 1 tablet Oral ly Once a day; Duration: 30 day(s) Active Tresiba FlexTouch 200 UNIT/ML Solution Pen-injector as directed Subcutaneous Act norma Aspir-Low 81 MG Tablet Delayed Release 1 tablet Orally Once a day; Duration: 30 day(s) Active Social History Tobacco Use: Social History Observation Description Date Details (start date - stop date) Former Smoker NA - NA Social History Drugs/Alcohol: Social Info Question Answer Notes Alcohol Screen Did you have a drink containing alcohol in the past year? Yes How often did you have a drink containing alcohol in the past year? 4 or more times a week (4 points) How many drinks did you have on a typical day when you were drinking in the past year? 1 or 2 drinks (0 point) How often did you have 6 or more drinks on one occasion in the past year? Never (0 point) Points 4 Interpretation Positive Tobacco Use: Social Info Question Answer Notes Tobacco Use/Smoking Patient is a former smoker When did you stop smoking? How long has it been since you last smoked? > 10 years Additional Details Category Social Info Options Details Miscellaneous: Marital status: Occupation: Retired Section Notes: Nonsmoker; 2 drinks per day Problems Problem Type SNOMED Code ICD Code Onset Dates Problem Status W/U Status Risk Notes Problem Irritable bowel syndrome (52851148) Irritable bowel syndrome with both constipation and diarrhea (K58.2) Active confirmed Problem Abnormal feces (914891385) Positive colorectal cancer screening using Cologuard test (R19.5) Active confirmed Plan Of Treatment Future Test Test Name Order Date COLONOSCOPY 01/22/2019 Insurance Providers Payer Name Payer Address Payer Phone Subscriber Number Group Number Insured Name Patient Relationship to Insured Coverage Start Date Coverage End Date MEDICARE OF [place] [address] [place] [address] [id number] JONATAN SAWYER Self - patient is the insured [facility] [address] [place] [address] [id number] JONATAN SAWYRE Self - patient is the insured Medical (General) History Medical History History ICD Code IDDM HTN Denies SD,CVA,Lung disease,renal disease IBS GERD---EGD 01/2008-small HH; normal duodenal biopsies, neg. for celiac disease Colonoscopy 01/2008-neg for colitis/poly ps PMR + Cologuard test 2018 Surgical History Surgery Date(Month/Year) Carpal tunnel release bilaterally
--- OUTSIDE RECORDS SUMMARY | 2025-03-16 18:13 | XMS_ITS | Encounter Summary ---
Author Organization [facility] Address [address] [place] [address] Phone Care Team Providers Care Steersman Name Role Phone Radha Barrios MD Unavailable [phone] Chela Hernandez MD Unavailable [phone] Nae Leiva MD Unavailable [phone] Radha Barrios MD Primary Care Provider [phone] Encounter Details Date Type Department Care Team (Late st Contact Info) Description 05/29/2017 Procedure Pass OR Admitting Dept - Virtual Department [address] [place] [address] Social History Tobacco Use Types Packs/Day Years [...] on filedocumented in this encounter Care Teams Steersman Relationship Specialty Start Date End Date Radha Barrios MD [address] [place] [phone] PCP - General Internal Medicine 02/22/17 Radha Barrios MD [address] [place] [phone] Historical LMR Provider 02/16/17 2 Chela Hernandez MD 4 [facility] Orthopedics & Sports Medicine, [place] [address] [email or web address] Historical LMR Provider 02/16/17 Nae Leiva MD 4 [facility] Orthopedics Sports [facility], [facility] [place], [place] [phone] juan Historical LMR Provider 02/16/17 05/06/21 documented as of this encounter Additional Source Comments The information contained in this document represents components of the legal health record. It is not the complete legal health record.[facility]
--- OUTSIDE RECORDS SUMMARY | 2025-03-16 18:15 | XMS_ITS | Encounter Summary ---
Author Organization [facility] Address [address] [place] [address] Phone Care Team Providers Care Bread Oven Operator Name Role Phone Radha Barrios MD Unavailable [phone] Chela Hernandez MD Unavailable [phone] Nae Leiva MD Unavailable [phone] Radha Barrios MD Primary Care Provider [phone] Encounter Details Date Type Department Care Team (Late st Contact Info) Description 04/03/2017 Procedure Pass OR Admitting Dept - Virtual Department [address] [place] [address] Social History Tobacco Use Types Packs/Day Years [...] on filedocumented in this encounter Care Teams Bread Oven Operator Relationship Specialty Start Date End Date Radha Barrios MD [address] [place] [phone] PCP - General Internal Medicine 02/22/17 Radha Barrios MD [address] [place] [phone] Historical LMR Provider 02/16/17 2 Chela Hernandez MD 4 [facility] Orthopedics & Sports Medicine, [place] [address] [email or web address] Historical LMR Provider 02/16/17 Nae Leiva MD 4 [facility] Orthopedics Sports [facility], [facility] [place], [place] [phone] juan Historical LMR Provider 02/16/17 05/06/21 documented as of this encounter Additional Source Comments The information contained in this document represents components of the legal health record. It is not the complete legal health record.[facility]
--- OUTSIDE RECORDS SUMMARY | 2025-03-16 18:17 | XMS_ITS | Encounter Summary ---
Author Organization [facility] Address [address] [place] [address] Phone Care Team Providers Care Ultrasound Specialist Name Role Phone Radha Barrios MD Unavailable [phone] Chela Hernandez MD Unavailable [phone] Nae Leiva MD Unavailable [phone] Radha Barrios MD Primary Care Provider [phone] Encounter Details Date Type Department Care Team (Late st Contact Info) Description 03/12/2017 Prep for Surgery [facility] Orthopedics & Sports Medicine [address] [place] [address] [phone] Nae Leiva MD [address] [place] [address] Orthopedics & Sports Medicine, [place] [address] juan [email or web address] Social History Tobacco Use [...] on filedocumented in this encounter Care Teams Ultrasound Specialist Relationship Specialty Start Date End Date Radha Barrios MD [address] [place] [address] PCP - General Internal Medicine 02/22/17 Radha Barrios MD [address] [place] [phone] Historical LMR Provider 02/16/17 2 Chela Hernandez MD [address] [place] [address] Orthopedics & Sports Medicine, [place] [address] Historical LMR Provider 02/16/17 Nae Leiva MD 4 [facility] Orthopedics Sports [facility], [facility] [place], [place] [phone] juan Historical LMR Provider 02/16/17 05/06/21 documented as of this encounter Additional Source Comments The information contained in this document represents components of the legal health record. It is not the complete legal health record.[facility]
--- OUTSIDE RECORDS SUMMARY | 2025-03-16 18:17 | XMS_ITS | Encounter Summary ---
Author Organization [facility] Address [address] [place] [address] Phone Care Team Providers Care Medical Language Specialist Name Role Phone Radha Barrios MD Unavailable [phone] Chela Hernandez MD Unavailable [phone] Nae Leiva MD Unavailable [phone] Radha Barrios MD Primary Care Provider [phone] Reason for Referral * MRI/CAT Scan - Closed Specialty Diagnoses / Procedures Referred By Contac t Referred To Contact Radiology Diagnoses Left hip pain Procedures MRI Hip (Left) Sirena Armas MD Phone: tel: fax: Referral ID Status Reason Start Date Expiration Date Visits Re quested Visits Authorized [id number] Closed 01/25/2021 01/25/2022 1 1 Encounter Details Date Type Department Care Team (Latest Contact Info) Description 01/25/2021 Transcribe Orders Virtual Department 30 [place] [address] Sirena Armas MD [address] [place] [phone] Left hip pain (Primary Dx) Social History [...] thigh documented in this encounter Care Teams Medical Language Specialist Relationship Specialty Start Date End Date Radha Barrios MD [address] [place] [phone] PCP - General Internal Medicine 02/22/17 Radha Barrios MD [address] [place] [phone] Historical LMR Provider 02/16/17 2 Chela Hernandez MD [address] [place] [address] Orthopedics & Sports Medicine, [place] [address] Historical LMR Provider 02/16/17 Nae Leiva MD 4 [facility] Orthopedics & Sports Medicine, [place] [address] juan Historical LMR Provider 02/16/17 05/06/21 documented as of this encounter Additional Source Comments The information contained in this document represents components of the legal health record. It is not the complete legal health record.[facility]
--- OUTSIDE RECORDS SUMMARY | 2025-03-16 18:17 | XMS_ITS | Encounter Summary ---
Author Organization [facility] Address [address] [place] [address] Phone Care Team Providers Care It Analyst Name Role Phone Radha Barrios MD Unavailable [phone] Chela Hernandez MD Unavailable [phone] Nae Leiva MD Unavailable [phone] Radha Barrios MD Primary Care Provider [phone] Encounter Details Date Type Department Care Team (Late st Contact Info) Description 01/25/2021 Procedure Pass [facility], [address] [place] [address] Social History Tobacco Use Types Packs/Day Years [...] on filedocumented in this encounter Care Teams It Analyst Relationship Specialty Start Date End Date Radha Barrios MD [address] [place] [phone] PCP - General Internal Medicine 02/22/17 Radha Barrios MD [address] [place] [address] Historical LMR Provider 02/16/17 2 Chela Hernandez MD 4 [facility] Orthopedics & Sports Medicine, [facility]. [place], [place] [phone] [email or web address] Historical LMR Provider 02/16/17 Nae Leiva MD [address] [facility] Orthopedics Sports [facility], [facility]. [place], [place] [phone] juan Historical LMR Provider 02/16/17 05/06/21 documented as of this encounter Additional Source Comments The information contained in this document represents components of the legal health record. It is not the complete legal health record.[facility]
--- OUTSIDE RECORDS SUMMARY | 2025-03-16 18:19 | XMS_ITS | Clinical Summary ---
Author Organization [facility] Address [address] [phone] Phone Care Team Providers Care Cardboard Inserter Name Role Phone Radha Barrios MD Primary Care Provider [phone] Allergies Active Allergy Reactions Criticality Noted Date Comments Inxecso-Fue-Kkg Reductase Inhibitors Diarrhea 02/25/2017 Pt not sure [...] on patient's age to complete this topic IPV VACCINES Aged Out No longer eligi ble based on patient's age to complete this topic MENINGOCOCCAL VACCINES (ACWY) Aged Out No longer eligible based on patient's age to complete this topic MENINGOCOCCAL VACCINES (B) Aged Out N o longer eligible based on patient's age to complete this topic Medical Devices Not on file Insurance [place] A [place] [id number] [facility] MEDIC[facility] SUPPLEMENT [facility]IC[facility] & B [facility] MEDICARE SUPPLEMENT [facility] & B [facility] MEDICARE SUPPLEMENT [facility] MEDICARE PART A & B [facility] EXTENSION MEDICARE SUPPLEMENT [facility] MEDICARE PART A & B [employer] MEDICARE SUPPLEMENT [facility] MEDICARE PART A & B [employer] MEDICARE SUPPLEMENT [facility] MEDICARE PART A & B [facility] EXTENSION MEDICARE SUPPLEMENT [facility] A & B [facility] MEDICARE SUPPLEMENT [facility] A & B [facility] MEDICARE SUPPLEMENT [facility] Advance Directives For more information, please contact: [phone] (9AM - 5PM [place], Saturday-Saturday) * Full Code (Presumed) (Latest Code Status on File) Date Activated Date Inactivated Comments 05/29/2017 7:32 AM 05/29/2017 12:15 PM * Full Code (Presumed) Date Activated Date Inactivated Comments 04/03/2017 6:51 AM 04/03/2017 11:58 AM Care Teams Cardboard Inserter Relationship Specialty Start Date End Date Radha Barrios MD [address] [place] [phone] PCP - General Internal Medicine 02/22/17 Additional Source Comments The information contained in this document represents components of the legal health record. It is not the complete legal health record.[facility]
--- OUTSIDE RECORDS SUMMARY | 2025-04-24 19:00 | XMS_ITS | Clinical Summary ---
Author Organization Unknown Care Team Providers Care Equities Trader Name Role Phone PO PRAKASH KIRAN Unavailable Unavaila ble FECTEAU PRINCIPAL WEB DEVELOPER, PHUONG Unavailable Unavailable KOREY RN, ALLY Unavailable Unavailable KEENA PT, PANKAJ Unavailable Unavailable Payers Payer Name Policy Type Policy Number Effective Date Expira tion Date MEDICARE.[facility] [id number] Problems Condition Name Condition Details Condition Category [...] HYPERCHOLEST EROLEMIA, UNSPECIFIED Active 10-28 00:00: 00 ASSISTED (CURRENT) USE OF INSULIN Active 10-28 00:00: 00 CONSERVATION POLICY ANALYST (CURRENT) USE OF SYSTEMIC STEROIDS Active 10-28 00:00: 00 CONSERVATION POLICY ANALYST (CURRENT) USE OF OPIATE ANALGESIC Active 10-28 [...] 10-27 00:00: 00 10-28 00:00 :00 No [id number] Per instruc tions Per instructio ns (route: oral) Med Classific ation: Analgesic , Anti-infl ammatory or Antipyret ic Dexcom G6 Sensor device 10-26 00:00: 00 10-28 00:00 :00 No [id number] Unavailable Per instruc tions Per instructio ns (route: miscellane ous) Med Classific ation: Medical Supplies and Durable Medical Equipment (DME) gabapentin 100 mg capsule 10-21 00:00: 00 10-28 00:00 :00 No [id number] Per instruc tions Per instructio ns (route: oral) Med Classific ation: Central Nervous System Agents amlodipine 10 mg tablet 10-19 00:00: 00 10-28 00:00 :00 No [id number] ESSENTIAL (PRIMARY) HYPERTENSIO N Per instruc tions DAILY Per instructio ns DAILY (route: oral) Med Classific ation: Cardiovas cular Therapy Agents Carin 2nd Gen Pen Needle 32 gauge x 5/32 10-19 00:00: 00 10-28 00:00 :00 No [id number] Per instruc tions INSULIN 5 TIMES DAILY Per instructio ns INSULIN 5 TIMES DAILY (route: miscellane ous) Med Classific ation: Medical Supplies and Durable Medical Equipment (DME) lisinopril 40 mg tablet 10-19 00:00: 00 10-28 00:00 :00 No [id number] ESSENTIAL (PRIMARY) HYPERTENSIO N Per instruc tions DAILY Per instructio ns DAILY (route: oral) Med Classific ation: Cardiovas cular Therapy Agents baclofen 10 mg tablet 10-15 00:00: 00 10-28 00:00 :00 No [id number] Per instruc tions Per instructio ns (route: oral) Med Classific ation: Locomotor System tramadol 50 mg tablet 10-15 00:00: 00 10-28 00:00 :00 No [id number] Per instruc tions Per instructio ns (route: oral) Med Classific ation: Analgesic , Anti-infl ammatory or Antipyret ic amoxicillin 875 mg tablet 10-13 00:00: 00 10-28 00:00 :00 No [id number] Per instruc tions Per instructio ns (route: oral) Med Classific ation: Anti-Infe ctive Agents chlorhexidi ne gluconate 0.12 % mouthwash 10-13 00:00: 00 10-28 00:00 :00 No [id number] Per instruc tions Per instructio ns (route: mucous membrane) Med Classific ation: Mouth-Thr oat-Denta l - Preparati ons cyclobenzap rine 10 mg tablet 10-09 00:00: 00 10-28 00:00 :00 No [id number] Per instruc tions Per instructio ns (route: oral) Med Classific ation: Locomotor System tadalafil 10 mg tablet 10-08 00:00: 00 10-28 00:00 :00 No [id number] MALE ERECTILE DYSFUNCTION , UNSPECIFIED Per instruc tions EVERY OTHER DAY NEEDED FOR SEXUAL ACTIVITY APPROXIMAT GONZALEZ 30 MINUTES PER 24 HOURS Per instructio ns EVERY OTHER DAY NEEDED FOR SEXUAL ACTIVITY APPROXIMAT GONZALEZ 30 MINUTES PER 24 HOURS (route: oral) Med Classific ation: Drugs to treat Erectile Dysfuncti on Ketostix strips 10-05 00:00: 00 10-28 00:00 :00 No [id number] 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 Per instruc tions AND DISCARD 1 TEST STRIP EVERY DAY NEEDED Per instructio ns AND DISCARD 1 TEST STRIP EVERY DAY NEEDED (route: miscellane ous) Med Classific ation: Medical Supplies and Durable Medical Equipment (DME) acetaminoph en 325 mg tablet 10-28 00:00: 00 Yes [id number] PAIN 2 tablet EVERY 4 HOURS 2 tablet EVERY 4 HOURS (route: oral) Med Classific ation: Analgesic , Anti-infl ammatory or Antipyret ic amlodipine 10 mg tablet 10-28 00:00: 00 Yes [id number] LOWERS BLOOD PRESSURE 1 tablet DAILY 1 tablet DAILY (route: oral) Med Classific ation: Cardiovas cular Therapy Agents atorvastati n 20 mg tablet 10-28 00:00: 00 Yes [id number] LOWERS CHOLESTEROL 1 tablet DAILY 1 tablet DAILY (route: oral) Med Classific ation: Cardiovas cular Therapy Agents cholecalcif swapna (vitamin D3) 25 mcg (1,000 unit) tablet 10-28 00:00: 00 Yes [id number] SUPPLEMENT 1 tablet DAILY 1 tablet DAILY (route: oral) Med Classific ation: Electroly te Balance-N utritiona l Products gabapentin 100 mg tablet 10-28 00:00: 00 Yes [id number] PAIN MANAGEMENT 1 tablet BEDTIME 1 tablet BEDTIME (route: oral) Med Classific ation: Central Nervous System Agents hydrochloro thiazide 12.5 mg tablet 10-28 00:00: 00 Yes [id number] FLUID RETENTION 1 tablet DAILY 1 tablet DAILY (route: oral) Med Classific ation: Cardiovas cular Therapy Agents insulin lispro (U-100) 100 unit/mL subcutaneou s pen 10-28 00:00: 00 Yes [id number] DIABETES Per instruc tions WITH MEALS Per instructio ns WITH MEALS (route: subcutaneo ) Med Classific ation: Endocrine lisinopril 40 mg tablet 10-28 00:00: 00 Yes [id number] LOWERS BLOOD PRESSURE 1 tablet DAILY 1 tablet DAILY (route: oral) Med Classific ation: Cardiovas cular Therapy Agents morphine 15 mg immediate release tablet 10-28 00:00: 00 Yes [id number] MODERATE PAIN 1 tablet EVERY 6 HOURS 1 tablet EVERY 6 HOURS (route: oral) Med Classific ation: Analgesic , Anti-infl ammatory or Antipyret ic omeprazole 20 mg capsule,del ayed release 10-28 00:00: 00 Yes [id number] GERD 1 capsule DAILY 1 capsule DAILY (route: oral) Med Classific ation: Gastroint estinal Therapy Agents prednisone 10 mg tablet 10-28 00:00: 00 Yes [id number] POLYMYALGIA 1 tablet DAILY 1 tablet DAILY (route: oral) Med Classific ation: Endocrine Tresiba FlexTouch U-100 insulin 100 unit/mL (3 mL) subcutaneou s pen 10-28 00:00: 00 Yes [id number] DIABETES 15 unit BEDTIME 15 unit BEDTIME (route: subcutaneo us) Med Classific ation: Endocrine naproxen 500 mg tablet 10-28 00:00: 00 Yes [id number] PAIN 1 tablet 2 TIMES DAILY 1 tablet 2 TIMES DAILY (route: oral) Med Classific ation: Analgesic , Anti-infl ammatory or Antipyret ic naproxen 500 mg tablet 11-18 00:00: 00 12-18 23:59 :00 No [id number] PAIN 1 tablet 2 TIMES DAILY 1 tablet 2 TIMES DAILY (route: oral) Med Classific ation: Analgesic , Anti-infl ammatory or Antipyret ic oxycodone 5 mg tablet 11-18 00:00: 00 Yes [id number] PAIN 1 tablet DAILY 1 tablet DAILY (route: oral) Med Classific ation: Analgesic , Anti-infl ammatory or Antipyret ic tramadol 50 mg tablet 12-18 00:00: 00 Yes [id number] SEVERE PAIN 1 tablet 3 TIMES DAILY 1 tablet 3 TIMES DAILY (route: oral) Med Classific ation: Analgesic , Anti-infl ammatory or Antipyret ic Vital Signs Vital Name Observation Time Observation Value Commen ts Temperature 2025-03-12 12:00:00.000 98.3 [degF] Pulse 2025-03-12 12:00:00.000 78 /min Respirations 2025-03-12 12:00:00.000 18 /min Systolic Blood Pressure 2025-03-12 12:00:00.000 118 mm [Hg] Diastolic Blood Pressure 2025-03-12 12:00:00.000 60 mm [Hg] Plan of Treatment Planned Activity Planned Date Details Comments Future Scheduled Test AGENCY MAY PERFORM A RESUMPTION OF CARE VISIT FOLLOWING ANY HOSPITAL ADMISSION. PT TO EVALUATE, OBSERVE / ASSESS, AND MONITOR, PRINCIPAL WEB DEVELOPER TO OBSERVE AND MONITOR, PROVIDE SKILLED THERAPEUTIC INTERVENTION, ACTIVITY, EDUCATION, AND TRAINING TO ADDRESS; [code = AGENCY MAY PERFORM A RESUMPTION OF CARE VISIT FOLLOWING ANY HOSPITAL ADMISSION. PT TO EVALUATE, OBSERVE / ASSESS, AND MONITOR, PRINCIPAL WEB DEVELOPER TO OBSERVE AND MONITOR, PROVIDE SKILLED THERAPEUTIC INTERVENTION, ACTIVITY, EDUCATION, AND TRAINING TO ADDRESS;] Future Scheduled Test PT/PRINCIPAL WEB DEVELOPER TO PROVIDE GAIT TRAINING FOR IMPROVED MOBILITY AND /OR TO NORMALIZE GAIT PATTERN [code = PT/PRINCIPAL WEB DEVELOPER TO PROVIDE GAIT TRAINING FOR IMPROVED MOBILITY AND /OR TO NORMALIZE GAIT PATTERN] Future Scheduled Test PT/PRINCIPAL WEB DEVELOPER TO PROVIDE STAIR TRAINING [code = PT/PRINCIPAL WEB DEVELOPER TO PROVIDE STAIR TRAINING] Future Scheduled Test NEUROMUSCU LAR RE-EDUCATION / BALANCE / POSTURAL CONTROL (PT) [code = NEUROMUSCULAR RE-EDUCATION / BALANCE / POSTURAL CONTROL (PT)] Future Scheduled Test THERAPEUTI C EXERCISES AND ESTABLISHING A HOME EXERCISE PROGRAM (PT/PRINCIPAL WEB DEVELOPER) [code = THERAPEUTIC EXERCISES AND ESTABLISHING A HOME EXERCISE PROGRAM (PT/PRINCIPAL WEB DEVELOPER)] Future Scheduled Test PT/PRINCIPAL WEB DEVELOPER TO IDENTIFY FALL RISK FACTORS; EDUCATE THE PATIENT/CAREGIVER ON WAYS TO REDUCE FALL RISK FACTORS AND ESTABLISH HOME EXERCISE PROGRAM TO MINIMIZE FALL RISK. MAY TEACH THE PATIENT FLOOR RECOVERY WHEN CLINICALLY APPROPRIATE [code = PT/PRINCIPAL WEB DEVELOPER TO IDENTIFY FALL RISK FACTORS; EDUCATE THE PATIENT/CAREGIVER ON WAYS TO REDUCE FALL RISK FACTORS AND ESTABLISH HOME EXERCISE PROGRAM TO MINIMIZE FALL RISK. MAY TEACH THE PATIENT FLOOR RECOVERY WHEN CLINICALLY APPROPRIATE] Future Scheduled Test PT/PRINCIPAL WEB DEVELOPER TO EDUCATE ON ARTHRITIS SELF-MANAGEMENT PT/PRINCIPAL WEB DEVELOPER MAY TEACH PATIENT APPLICATION OF CRYOTHERAPY/ HEAT FOR PAIN / SWELLING UP TO 20 MIN AT A TIME [code = PT/PRINCIPAL WEB DEVELOPER TO EDUCATE ON ARTHRITIS SELF-MANAGEMENT PT/PRINCIPAL WEB DEVELOPER MAY TEACH PATIENT APPLICATION OF CRYOTHERAPY/ HEAT FOR PAIN / SWELLING UP TO 20 MIN AT A TIME] Future Scheduled Test PT / PRINCIPAL WEB DEVELOPER M AY EDUCATE ON PAIN MANAGEMENT CLINICALLY INDICATED, INCLUDING NON-PHARMACOLOGICAL PAIN REDUCTION TECHNIQUES AND USE OF CRYOTHERAPY OR HEAT UP TO 20 MIN AT A TIME FOR PAIN MANAGEMENT [code = PT / PRINCIPAL WEB DEVELOPER MAY EDUCATE ON PAIN MANAGEMENT CLINICALLY INDICATED, INCLUDING NON-PHARMACOLOGICAL PAIN REDUCTION TECHNIQUES AND USE OF CRYOTHERAPY OR HEAT UP TO 20 MIN AT A TIME FOR PAIN MANAGEMENT] Future Scheduled Test PT / PRINCIPAL WEB DEVELOPER T O MONITOR FOR HYPO/HYPERGLYCEMIA AND CONDUCT ROUTINE FOOT INSPECTIONS. RECORD PATIENT REPORTED BLOOD SUGAR LEVELS AND NOTIFY PHYSICIAN AND/OR THE RN CLINICAL AUTHORIZATION COORDINATOR FOR PHYSICIAN NOTIFICATION IF BLOOD SUGAR LEVELS ARE OUTSIDE ORDERED PARAMETERS. TEACH PATIENT/CAREGIVER ON DAILY FOOT INSPECTIONS [code = PT / PRINCIPAL WEB DEVELOPER TO MONITOR FOR HYPO/HYPERGLYCEMIA AND CONDUCT ROUTINE FOOT INSPECTIONS. RECORD PATIENT REPORTED BLOOD SUGAR LEVELS AND NOTIFY PHYSICIAN AND/OR THE RN CLINICAL AUTHORIZATION COORDINATOR FOR PHYSICIAN NOTIFICATION IF BLOOD SUGAR LEVELS ARE OUTSIDE ORDERED PARAMETERS. TEACH PATIENT/CAREGIVER ON DAILY FOOT INSPECTIONS] Goal 2024-12-23 Patient Goal - T O WALK WITHOUT WALKER. TO IMPROVE PAIN. Goal 2025-02-22 Patient Goal - T O WALK WITHOUT WALKER. TO IMPROVE PAIN. FIND OUT WHAT IS GOING ON WITH LE/PAIN Goal Patient Goal - T O WALK WITHOUT WALKER. TO IMPROVE PAIN. FIND OUT WHAT IS GOING ON WITH LE/PAIN Goal Provider Goal - Goal Provider Goal - PT LTG: PATIENT WILL DEMONSTRATE IMPROVED AMBULATION FROM SBA TO INDEPENDENT WITHIN 5 WEEKS Goal Provider Goal - PT LTG: PATIENT WILL DEMONSTRATE IMPROVED ABILITY TO SAFELY NEGOTIATE STAIRS FROM SBA TO INDEPENDENT WITHIN 5 WEEKS Goal Provider Goal - PT LTG: PATIENT WILL DEMONSTRATE REDUCED FALL RISK EVIDENCED BY TUG TEST (CUT SCORE >11 SECONDS INDICATES INCREASED FALL RISK) IMPROVING FROM 24 SECONDS TO 15 SECONDS WITHIN 5 WEEKS Goal Provider Goal - PT LTG: PATIENT WILL DEMONSTRATE INCREASED STRENGTH OF BLE FROM 3+/5 TO 4/5 WITHIN 5 WEEKS Goal Provider Goal - PT LTG: PATIENT/CAREGIVER WILL DEMONSTRATE ADHERENCE TO FALL REDUCTION SELF-MANAGEMENT AND REDUCING FALL RISK FACTORS TO MINIMIZE FALL RISK BY END OF EPISODE. PT LTG: PATIENT WILL BE INDEPENDENT WITH IMPLEMENTATION OF HEP WITHIN 5 WEEKS PT LTG: CAREGIVER WILL BE INDEPENDENT ASSISTING PATIENT TO COMPLETE HEP WITHIN 5 WEEKS Goal Provider Goal - PT GOAL: PATIENT/CAREGIVER WILL BE ABLE TO VERBALIZE UNDERSTANDING OF ARTHRITIS EDUCATION, SIGNS/SYMPTOMS TO REPORT, WELL SELF-MANAGEMENT AND LIFE-STYLE CHANGES TO IMPROVE QUALITY OF LIFE AND REDUCE CAREGIVER BURDEN BY END OF EPISODE. Goal Provider Goal - PT GOAL: PATIENT WILL DEMONSTRATE UNDERSTANDING OF PAIN MANAGEMENT TECHNIQUES EVIDENCED BY REDUCED PAIN Goal Provider Goal - PATIENT S BLOOD SUGAR WILL REMAIN WELL CONTROLLED WITH SELF-MANAGEMENT THROUGHOUT EPISODE OF CARE. Encounters Start Date/Time End Date/Time Encounter Type Admission Type Attending [facility] Facility Care Department Encounter ID Discharge Date Discharge Status Discharge Condition Discharge Reason Percent Goals Met 2025-02-25 00:00:00 2025-04-25 00:00:00 Outpatient RECERTIFIC PANKAJ HASSAN [facility] [id number] 0.00
--- OUTSIDE RECORDS SUMMARY | 2025-04-24 19:00 | XMS_ITS | Clinical Summary ---
Author Organization Unknown Care Team Providers Care Industrial Methods Consultant Name Role Phone PO PRAKASH KIRAN Unavailable Unavaila ble FECTEAU SLITTER CREASER SLOTTER HELPER, PHUONG Unavailable Unavailable KOREY RN, ALLY Unavailable Unavailable KEENA PT, PANKAJ Unavailable Unavailable Payers Payer Name Policy Type Policy Number Effective Date Expira tion Date MEDICARE.[facility] [id number] Problems Condition Name Condition Details Condition Category [...] HYPERCHOLEST EROLEMIA, UNSPECIFIED Active 10-28 00:00: 00 HALF-WAY (CURRENT) USE OF INSULIN Active 10-28 00:00: 00 WORKPLACE TRAINER AND ASSESSOR (CURRENT) USE OF SYSTEMIC STEROIDS Active 10-28 00:00: 00 WORKPLACE TRAINER AND ASSESSOR (CURRENT) USE OF OPIATE ANALGESIC Active 10-28 [...] 10-27 00:00: 00 10-28 00:00 :00 No [id number] Per instruc tions Per instructio ns (route: oral) Med Classific ation: Analgesic , Anti-infl ammatory or Antipyret ic Dexcom G6 Sensor device 10-26 00:00: 00 10-28 00:00 :00 No [id number] Unavailable Per instruc tions Per instructio ns (route: miscellane ous) Med Classific ation: Medical Supplies and Durable Medical Equipment (DME) gabapentin 100 mg capsule 10-21 00:00: 00 10-28 00:00 :00 No [id number] Per instruc tions Per instructio ns (route: oral) Med Classific ation: Central Nervous System Agents amlodipine 10 mg tablet 10-19 00:00: 00 10-28 00:00 :00 No [id number] ESSENTIAL (PRIMARY) HYPERTENSIO N Per instruc tions DAILY Per instructio ns DAILY (route: oral) Med Classific ation: Cardiovas cular Therapy Agents Carin 2nd Gen Pen Needle 32 gauge x 5/32 10-19 00:00: 00 10-28 00:00 :00 No [id number] Per instruc tions INSULIN 5 TIMES DAILY Per instructio ns INSULIN 5 TIMES DAILY (route: miscellane ous) Med Classific ation: Medical Supplies and Durable Medical Equipment (DME) lisinopril 40 mg tablet 10-19 00:00: 00 10-28 00:00 :00 No [id number] ESSENTIAL (PRIMARY) HYPERTENSIO N Per instruc tions DAILY Per instructio ns DAILY (route: oral) Med Classific ation: Cardiovas cular Therapy Agents baclofen 10 mg tablet 10-15 00:00: 00 10-28 00:00 :00 No [id number] Per instruc tions Per instructio ns (route: oral) Med Classific ation: Locomotor System tramadol 50 mg tablet 10-15 00:00: 00 10-28 00:00 :00 No [id number] Per instruc tions Per instructio ns (route: oral) Med Classific ation: Analgesic , Anti-infl ammatory or Antipyret ic amoxicillin 875 mg tablet 10-13 00:00: 00 10-28 00:00 :00 No [id number] Per instruc tions Per instructio ns (route: oral) Med Classific ation: Anti-Infe ctive Agents chlorhexidi ne gluconate 0.12 % mouthwash 10-13 00:00: 00 10-28 00:00 :00 No [id number] Per instruc tions Per instructio ns (route: mucous membrane) Med Classific ation: Mouth-Thr oat-Denta l - Preparati ons cyclobenzap rine 10 mg tablet 10-09 00:00: 00 10-28 00:00 :00 No [id number] Per instruc tions Per instructio ns (route: oral) Med Classific ation: Locomotor System tadalafil 10 mg tablet 10-08 00:00: 00 10-28 00:00 :00 No [id number] MALE ERECTILE DYSFUNCTION , UNSPECIFIED Per instruc tions EVERY OTHER DAY NEEDED FOR SEXUAL ACTIVITY APPROXIMAT GONZALEZ 30 MINUTES PER 24 HOURS Per instructio ns EVERY OTHER DAY NEEDED FOR SEXUAL ACTIVITY APPROXIMAT GONZALEZ 30 MINUTES PER 24 HOURS (route: oral) Med Classific ation: Drugs to treat Erectile Dysfuncti on Ketostix strips 10-05 00:00: 00 10-28 00:00 :00 No [id number] 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 Per instruc tions AND DISCARD 1 TEST STRIP EVERY DAY NEEDED Per instructio ns AND DISCARD 1 TEST STRIP EVERY DAY NEEDED (route: miscellane ous) Med Classific ation: Medical Supplies and Durable Medical Equipment (DME) acetaminoph en 325 mg tablet 10-28 00:00: 00 Yes [id number] PAIN 2 tablet EVERY 4 HOURS 2 tablet EVERY 4 HOURS (route: oral) Med Classific ation: Analgesic , Anti-infl ammatory or Antipyret ic amlodipine 10 mg tablet 10-28 00:00: 00 Yes [id number] LOWERS BLOOD PRESSURE 1 tablet DAILY 1 tablet DAILY (route: oral) Med Classific ation: Cardiovas cular Therapy Agents atorvastati n 20 mg tablet 10-28 00:00: 00 Yes [id number] LOWERS CHOLESTEROL 1 tablet DAILY 1 tablet DAILY (route: oral) Med Classific ation: Cardiovas cular Therapy Agents cholecalcif swapna (vitamin D3) 25 mcg (1,000 unit) tablet 10-28 00:00: 00 Yes [id number] SUPPLEMENT 1 tablet DAILY 1 tablet DAILY (route: oral) Med Classific ation: Electroly te Balance-N utritiona l Products gabapentin 100 mg tablet 10-28 00:00: 00 Yes [id number] PAIN MANAGEMENT 1 tablet BEDTIME 1 tablet BEDTIME (route: oral) Med Classific ation: Central Nervous System Agents hydrochloro thiazide 12.5 mg tablet 10-28 00:00: 00 Yes [id number] FLUID RETENTION 1 tablet DAILY 1 tablet DAILY (route: oral) Med Classific ation: Cardiovas cular Therapy Agents insulin lispro (U-100) 100 unit/mL subcutaneou s pen 10-28 00:00: 00 Yes [id number] DIABETES Per instruc tions WITH MEALS Per instructio ns WITH MEALS (route: subcutaneo ) Med Classific ation: Endocrine lisinopril 40 mg tablet 10-28 00:00: 00 Yes [id number] LOWERS BLOOD PRESSURE 1 tablet DAILY 1 tablet DAILY (route: oral) Med Classific ation: Cardiovas cular Therapy Agents morphine 15 mg immediate release tablet 10-28 00:00: 00 Yes [id number] MODERATE PAIN 1 tablet EVERY 6 HOURS 1 tablet EVERY 6 HOURS (route: oral) Med Classific ation: Analgesic , Anti-infl ammatory or Antipyret ic omeprazole 20 mg capsule,del ayed release 10-28 00:00: 00 Yes [id number] GERD 1 capsule DAILY 1 capsule DAILY (route: oral) Med Classific ation: Gastroint estinal Therapy Agents prednisone 10 mg tablet 10-28 00:00: 00 Yes [id number] POLYMYALGIA 1 tablet DAILY 1 tablet DAILY (route: oral) Med Classific ation: Endocrine Tresiba FlexTouch U-100 insulin 100 unit/mL (3 mL) subcutaneou s pen 10-28 00:00: 00 Yes [id number] DIABETES 15 unit BEDTIME 15 unit BEDTIME (route: subcutaneo us) Med Classific ation: Endocrine naproxen 500 mg tablet 10-28 00:00: 00 Yes [id number] PAIN 1 tablet 2 TIMES DAILY 1 tablet 2 TIMES DAILY (route: oral) Med Classific ation: Analgesic , Anti-infl ammatory or Antipyret ic naproxen 500 mg tablet 11-18 00:00: 00 12-18 23:59 :00 No [id number] PAIN 1 tablet 2 TIMES DAILY 1 tablet 2 TIMES DAILY (route: oral) Med Classific ation: Analgesic , Anti-infl ammatory or Antipyret ic oxycodone 5 mg tablet 11-18 00:00: 00 Yes [id number] PAIN 1 tablet DAILY 1 tablet DAILY (route: oral) Med Classific ation: Analgesic , Anti-infl ammatory or Antipyret ic tramadol 50 mg tablet 12-18 00:00: 00 Yes [id number] SEVERE PAIN 1 tablet 3 TIMES DAILY [...] TO EVALUATE, OBSERVE / ASSESS, AND MONITOR, SLITTER CREASER SLOTTER HELPER TO OBSERVE AND MONITOR, PROVIDE SKILLED THERAPEUTIC INTERVENTION, ACTIVITY, EDUCATION, AND TRAINING TO ADDRESS; [code = AGENCY MAY PERFORM A RESUMPTION OF CARE VISIT FOLLOWING ANY HOSPITAL ADMISSION. PT TO EVALUATE, OBSERVE / ASSESS, AND MONITOR, SLITTER CREASER SLOTTER HELPER TO OBSERVE AND MONITOR, PROVIDE SKILLED THERAPEUTIC INTERVENTION, ACTIVITY, EDUCATION, AND TRAINING TO ADDRESS;] Future Scheduled Test PT/SLITTER CREASER SLOTTER HELPER TO PROVIDE GAIT TRAINING FOR IMPROVED MOBILITY AND /OR TO NORMALIZE GAIT PATTERN [code = PT/SLITTER CREASER SLOTTER HELPER TO PROVIDE GAIT TRAINING FOR IMPROVED MOBILITY AND /OR TO NORMALIZE GAIT PATTERN] Future Scheduled Test PT/SLITTER CREASER SLOTTER HELPER TO PROVIDE STAIR TRAINING [code = PT/SLITTER CREASER SLOTTER HELPER TO PROVIDE STAIR TRAINING] Future Scheduled Test NEUROMUSCU LAR RE-EDUCATION / BALANCE / POSTURAL CONTROL (PT) [code = NEUROMUSCULAR RE-EDUCATION / BALANCE / POSTURAL CONTROL (PT)] Future Scheduled Test THERAPEUTI C EXERCISES AND ESTABLISHING A HOME EXERCISE PROGRAM (PT/SLITTER CREASER SLOTTER HELPER) [code = THERAPEUTIC EXERCISES AND ESTABLISHING A HOME EXERCISE PROGRAM (PT/SLITTER CREASER SLOTTER HELPER)] Future Scheduled Test PT/SLITTER CREASER SLOTTER HELPER TO IDENTIFY FALL RISK FACTORS; EDUCATE THE PATIENT/CAREGIVER ON WAYS TO REDUCE FALL RISK FACTORS AND ESTABLISH HOME EXERCISE PROGRAM TO MINIMIZE FALL RISK. MAY TEACH THE PATIENT FLOOR RECOVERY WHEN CLINICALLY APPROPRIATE [code = PT/SLITTER CREASER SLOTTER HELPER TO IDENTIFY FALL RISK FACTORS; EDUCATE THE PATIENT/CAREGIVER ON WAYS TO REDUCE FALL RISK FACTORS AND ESTABLISH HOME EXERCISE PROGRAM TO MINIMIZE FALL RISK. MAY TEACH THE PATIENT FLOOR RECOVERY WHEN CLINICALLY APPROPRIATE] Future Scheduled Test PT/SLITTER CREASER SLOTTER HELPER TO EDUCATE ON ARTHRITIS SELF-MANAGEMENT PT/SLITTER CREASER SLOTTER HELPER MAY TEACH PATIENT APPLICATION OF CRYOTHERAPY/ HEAT FOR PAIN / SWELLING UP TO 20 MIN AT A TIME [code = PT/SLITTER CREASER SLOTTER HELPER TO EDUCATE ON ARTHRITIS SELF-MANAGEMENT PT/SLITTER CREASER SLOTTER HELPER MAY TEACH PATIENT APPLICATION OF CRYOTHERAPY/ HEAT FOR PAIN / SWELLING UP TO 20 MIN AT A TIME] Future Scheduled Test PT / SLITTER CREASER SLOTTER HELPER M AY EDUCATE ON PAIN MANAGEMENT CLINICALLY INDICATED, INCLUDING NON-PHARMACOLOGICAL PAIN REDUCTION TECHNIQUES AND USE OF CRYOTHERAPY OR HEAT UP TO 20 MIN AT A TIME FOR PAIN MANAGEMENT [code = PT / SLITTER CREASER SLOTTER HELPER MAY EDUCATE ON PAIN MANAGEMENT CLINICALLY INDICATED, INCLUDING NON-PHARMACOLOGICAL PAIN REDUCTION TECHNIQUES AND USE OF CRYOTHERAPY OR HEAT UP TO 20 MIN AT A TIME FOR PAIN MANAGEMENT] Future Scheduled Test PT / SLITTER CREASER SLOTTER HELPER T O MONITOR FOR HYPO/HYPERGLYCEMIA AND CONDUCT ROUTINE FOOT INSPECTIONS. RECORD PATIENT REPORTED BLOOD SUGAR LEVELS AND NOTIFY PHYSICIAN AND/OR THE RN CLINICAL ORACLE ASCP CONSULTANT FOR PHYSICIAN NOTIFICATION IF BLOOD SUGAR LEVELS ARE OUTSIDE ORDERED PARAMETERS. TEACH PATIENT/CAREGIVER ON DAILY FOOT INSPECTIONS [code = PT / SLITTER CREASER SLOTTER HELPER TO MONITOR FOR HYPO/HYPERGLYCEMIA AND CONDUCT ROUTINE FOOT INSPECTIONS. RECORD PATIENT REPORTED BLOOD SUGAR LEVELS AND NOTIFY PHYSICIAN AND/OR THE RN CLINICAL ORACLE ASCP CONSULTANT FOR PHYSICIAN NOTIFICATION IF BLOOD SUGAR LEVELS [...] End Date/Time Encounter Type Admission Type Attending [facility] Facility Care Department Encounter ID Discharge Date Discharge Status Discharge Condition Discharge Reason Percent Goals Met 2025-02-25 00:00:00 2025-04-25 00:00:00 Outpatient RECERTIFIC PANKAJ HASSAN [facility] [id number] 0.00
--- OUTSIDE RECORDS SUMMARY | 2025-04-24 19:00 | XMS_ITS | Clinical Summary ---
Author Organization Unknown Care Team Providers Care Air Conditioning Coil Assembler Name Role Phone PO PRAKASH KIRAN Unavailable Unavaila ble FECTEAU BROILER MANAGER, PHUONG Unavailable Unavailable KOREY RN, ALLY Unavailable Unavailable KEENA PT, PANKAJ Unavailable Unavailable Payers Payer Name Policy Type Policy Number Effective Date Expira tion Date MEDICARE.[facility] [id number] Problems Condition Name Condition Details Condition Category [...] HYPERCHOLEST EROLEMIA, UNSPECIFIED Active 10-28 00:00: 00 USP (CURRENT) USE OF INSULIN Active 10-28 00:00: 00 HOSPITAL STAFF PHARMACIST (CURRENT) USE OF SYSTEMIC STEROIDS Active 10-28 00:00: 00 HOSPITAL STAFF PHARMACIST (CURRENT) USE OF OPIATE ANALGESIC Active 10-28 [...] 10-27 00:00: 00 10-28 00:00 :00 No [id number] Per instruc tions Per instructio ns (route: oral) Med Classific ation: Analgesic , Anti-infl ammatory or Antipyret ic Dexcom G6 Sensor device 10-26 00:00: 00 10-28 00:00 :00 No [id number] Unavailable Per instruc tions Per instructio ns (route: miscellane ous) Med Classific ation: Medical Supplies and Durable Medical Equipment (DME) gabapentin 100 mg capsule 10-21 00:00: 00 10-28 00:00 :00 No [id number] Per instruc tions Per instructio ns (route: oral) Med Classific ation: Central Nervous System Agents amlodipine 10 mg tablet 10-19 00:00: 00 10-28 00:00 :00 No [id number] ESSENTIAL (PRIMARY) HYPERTENSIO N Per instruc tions DAILY Per instructio ns DAILY (route: oral) Med Classific ation: Cardiovas cular Therapy Agents Carin 2nd Gen Pen Needle 32 gauge x 5/32 10-19 00:00: 00 10-28 00:00 :00 No [id number] Per instruc tions INSULIN 5 TIMES DAILY Per instructio ns INSULIN 5 TIMES DAILY (route: miscellane ous) Med Classific ation: Medical Supplies and Durable Medical Equipment (DME) lisinopril 40 mg tablet 10-19 00:00: 00 10-28 00:00 :00 No [id number] ESSENTIAL (PRIMARY) HYPERTENSIO N Per instruc tions DAILY Per instructio ns DAILY (route: oral) Med Classific ation: Cardiovas cular Therapy Agents baclofen 10 mg tablet 10-15 00:00: 00 10-28 00:00 :00 No [id number] Per instruc tions Per instructio ns (route: oral) Med Classific ation: Locomotor System tramadol 50 mg tablet 10-15 00:00: 00 10-28 00:00 :00 No [id number] Per instruc tions Per instructio ns (route: oral) Med Classific ation: Analgesic , Anti-infl ammatory or Antipyret ic amoxicillin 875 mg tablet 10-13 00:00: 00 10-28 00:00 :00 No [id number] Per instruc tions Per instructio ns (route: oral) Med Classific ation: Anti-Infe ctive Agents chlorhexidi ne gluconate 0.12 % mouthwash 10-13 00:00: 00 10-28 00:00 :00 No [id number] Per instruc tions Per instructio ns (route: mucous membrane) Med Classific ation: Mouth-Thr oat-Denta l - Preparati ons cyclobenzap rine 10 mg tablet 10-09 00:00: 00 10-28 00:00 :00 No [id number] Per instruc tions Per instructio ns (route: oral) Med Classific ation: Locomotor System tadalafil 10 mg tablet 10-08 00:00: 00 10-28 00:00 :00 No [id number] MALE ERECTILE DYSFUNCTION , UNSPECIFIED Per instruc tions EVERY OTHER DAY NEEDED FOR SEXUAL ACTIVITY APPROXIMAT GONZALEZ 30 MINUTES PER 24 HOURS Per instructio ns EVERY OTHER DAY NEEDED FOR SEXUAL ACTIVITY APPROXIMAT GONZALEZ 30 MINUTES PER 24 HOURS (route: oral) Med Classific ation: Drugs to treat Erectile Dysfuncti on Ketostix strips 10-05 00:00: 00 10-28 00:00 :00 No [id number] 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 Per instruc tions AND DISCARD 1 TEST STRIP EVERY DAY NEEDED Per instructio ns AND DISCARD 1 TEST STRIP EVERY DAY NEEDED (route: miscellane ous) Med Classific ation: Medical Supplies and Durable Medical Equipment (DME) acetaminoph en 325 mg tablet 10-28 00:00: 00 Yes [id number] PAIN 2 tablet EVERY 4 HOURS 2 tablet EVERY 4 HOURS (route: oral) Med Classific ation: Analgesic , Anti-infl ammatory or Antipyret ic amlodipine 10 mg tablet 10-28 00:00: 00 Yes [id number] LOWERS BLOOD PRESSURE 1 tablet DAILY 1 tablet DAILY (route: oral) Med Classific ation: Cardiovas cular Therapy Agents atorvastati n 20 mg tablet 10-28 00:00: 00 Yes [id number] LOWERS CHOLESTEROL 1 tablet DAILY 1 tablet DAILY (route: oral) Med Classific ation: Cardiovas cular Therapy Agents cholecalcif swapna (vitamin D3) 25 mcg (1,000 unit) tablet 10-28 00:00: 00 Yes [id number] SUPPLEMENT 1 tablet DAILY 1 tablet DAILY (route: oral) Med Classific ation: Electroly te Balance-N utritiona l Products gabapentin 100 mg tablet 10-28 00:00: 00 Yes [id number] PAIN MANAGEMENT 1 tablet BEDTIME 1 tablet BEDTIME (route: oral) Med Classific ation: Central Nervous System Agents hydrochloro thiazide 12.5 mg tablet 10-28 00:00: 00 Yes [id number] FLUID RETENTION 1 tablet DAILY 1 tablet DAILY (route: oral) Med Classific ation: Cardiovas cular Therapy Agents insulin lispro (U-100) 100 unit/mL subcutaneou s pen 10-28 00:00: 00 Yes [id number] DIABETES Per instruc tions WITH MEALS Per instructio ns WITH MEALS (route: subcutaneo ) Med Classific ation: Endocrine lisinopril 40 mg tablet 10-28 00:00: 00 Yes [id number] LOWERS BLOOD PRESSURE 1 tablet DAILY 1 tablet DAILY (route: oral) Med Classific ation: Cardiovas cular Therapy Agents morphine 15 mg immediate release tablet 10-28 00:00: 00 Yes [id number] MODERATE PAIN 1 tablet EVERY 6 HOURS 1 tablet EVERY 6 HOURS (route: oral) Med Classific ation: Analgesic , Anti-infl ammatory or Antipyret ic omeprazole 20 mg capsule,del ayed release 10-28 00:00: 00 Yes [id number] GERD 1 capsule DAILY 1 capsule DAILY (route: oral) Med Classific ation: Gastroint estinal Therapy Agents prednisone 10 mg tablet 10-28 00:00: 00 Yes [id number] POLYMYALGIA 1 tablet DAILY 1 tablet DAILY (route: oral) Med Classific ation: Endocrine Tresiba FlexTouch U-100 insulin 100 unit/mL (3 mL) subcutaneou s pen 10-28 00:00: 00 Yes [id number] DIABETES 15 unit BEDTIME 15 unit BEDTIME (route: subcutaneo us) Med Classific ation: Endocrine naproxen 500 mg tablet 10-28 00:00: 00 Yes [id number] PAIN 1 tablet 2 TIMES DAILY 1 tablet 2 TIMES DAILY (route: oral) Med Classific ation: Analgesic , Anti-infl ammatory or Antipyret ic naproxen 500 mg tablet 11-18 00:00: 00 12-18 23:59 :00 No [id number] PAIN 1 tablet 2 TIMES DAILY 1 tablet 2 TIMES DAILY (route: oral) Med Classific ation: Analgesic , Anti-infl ammatory or Antipyret ic oxycodone 5 mg tablet 11-18 00:00: 00 Yes [id number] PAIN 1 tablet DAILY 1 tablet DAILY (route: oral) Med Classific ation: Analgesic , Anti-infl ammatory or Antipyret ic tramadol 50 mg tablet 12-18 00:00: 00 Yes [id number] SEVERE PAIN 1 tablet 3 TIMES DAILY [...] TO EVALUATE, OBSERVE / ASSESS, AND MONITOR, BROILER MANAGER TO OBSERVE AND MONITOR, PROVIDE SKILLED THERAPEUTIC INTERVENTION, ACTIVITY, EDUCATION, AND TRAINING TO ADDRESS; [code = AGENCY MAY PERFORM A RESUMPTION OF CARE VISIT FOLLOWING ANY HOSPITAL ADMISSION. PT TO EVALUATE, OBSERVE / ASSESS, AND MONITOR, BROILER MANAGER TO OBSERVE AND MONITOR, PROVIDE SKILLED THERAPEUTIC INTERVENTION, ACTIVITY, EDUCATION, AND TRAINING TO ADDRESS;] Future Scheduled Test PT/BROILER MANAGER TO PROVIDE GAIT TRAINING FOR IMPROVED MOBILITY AND /OR TO NORMALIZE GAIT PATTERN [code = PT/BROILER MANAGER TO PROVIDE GAIT TRAINING FOR IMPROVED MOBILITY AND /OR TO NORMALIZE GAIT PATTERN] Future Scheduled Test PT/BROILER MANAGER TO PROVIDE STAIR TRAINING [code = PT/BROILER MANAGER TO PROVIDE STAIR TRAINING] Future Scheduled Test NEUROMUSCU LAR RE-EDUCATION / BALANCE / POSTURAL CONTROL (PT) [code = NEUROMUSCULAR RE-EDUCATION / BALANCE / POSTURAL CONTROL (PT)] Future Scheduled Test THERAPEUTI C EXERCISES AND ESTABLISHING A HOME EXERCISE PROGRAM (PT/BROILER MANAGER) [code = THERAPEUTIC EXERCISES AND ESTABLISHING A HOME EXERCISE PROGRAM (PT/BROILER MANAGER)] Future Scheduled Test PT/BROILER MANAGER TO IDENTIFY FALL RISK FACTORS; EDUCATE THE PATIENT/CAREGIVER ON WAYS TO REDUCE FALL RISK FACTORS AND ESTABLISH HOME EXERCISE PROGRAM TO MINIMIZE FALL RISK. MAY TEACH THE PATIENT FLOOR RECOVERY WHEN CLINICALLY APPROPRIATE [code = PT/BROILER MANAGER TO IDENTIFY FALL RISK FACTORS; EDUCATE THE PATIENT/CAREGIVER ON WAYS TO REDUCE FALL RISK FACTORS AND ESTABLISH HOME EXERCISE PROGRAM TO MINIMIZE FALL RISK. MAY TEACH THE PATIENT FLOOR RECOVERY WHEN CLINICALLY APPROPRIATE] Future Scheduled Test PT/BROILER MANAGER TO EDUCATE ON ARTHRITIS SELF-MANAGEMENT PT/BROILER MANAGER MAY TEACH PATIENT APPLICATION OF CRYOTHERAPY/ HEAT FOR PAIN / SWELLING UP TO 20 MIN AT A TIME [code = PT/BROILER MANAGER TO EDUCATE ON ARTHRITIS SELF-MANAGEMENT PT/BROILER MANAGER MAY TEACH PATIENT APPLICATION OF CRYOTHERAPY/ HEAT FOR PAIN / SWELLING UP TO 20 MIN AT A TIME] Future Scheduled Test PT / BROILER MANAGER M AY EDUCATE ON PAIN MANAGEMENT CLINICALLY INDICATED, INCLUDING NON-PHARMACOLOGICAL PAIN REDUCTION TECHNIQUES AND USE OF CRYOTHERAPY OR HEAT UP TO 20 MIN AT A TIME FOR PAIN MANAGEMENT [code = PT / BROILER MANAGER MAY EDUCATE ON PAIN MANAGEMENT CLINICALLY INDICATED, INCLUDING NON-PHARMACOLOGICAL PAIN REDUCTION TECHNIQUES AND USE OF CRYOTHERAPY OR HEAT UP TO 20 MIN AT A TIME FOR PAIN MANAGEMENT] Future Scheduled Test PT / BROILER MANAGER T O MONITOR FOR HYPO/HYPERGLYCEMIA AND CONDUCT ROUTINE FOOT INSPECTIONS. RECORD PATIENT REPORTED BLOOD SUGAR LEVELS AND NOTIFY PHYSICIAN AND/OR THE RN CLINICAL DENTAL LAB TECHNICIAN FOR PHYSICIAN NOTIFICATION IF BLOOD SUGAR LEVELS ARE OUTSIDE ORDERED PARAMETERS. TEACH PATIENT/CAREGIVER ON DAILY FOOT INSPECTIONS [code = PT / BROILER MANAGER TO MONITOR FOR HYPO/HYPERGLYCEMIA AND CONDUCT ROUTINE FOOT INSPECTIONS. RECORD PATIENT REPORTED BLOOD SUGAR LEVELS AND NOTIFY PHYSICIAN AND/OR THE RN CLINICAL DENTAL LAB TECHNICIAN FOR PHYSICIAN NOTIFICATION IF BLOOD SUGAR LEVELS [...] End Date/Time Encounter Type Admission Type Attending [facility] Facility Care Department Encounter ID Discharge Date Discharge Status Discharge Condition Discharge Reason Percent Goals Met 2025-02-25 00:00:00 2025-04-25 00:00:00 Outpatient RECERTIFIC PANKAJ HASSAN [facility] [id number] 0.00
--- OUTSIDE RECORDS SUMMARY | 2025-04-24 19:00 | XMS_ITS | Clinical Summary ---
Author Organization Unknown Care Team Providers Care Horticultural Specialty Grower Inside Name Role Phone PO PRAKASH KIRAN Unavailable Unavaila ble FECTEAU WAGE HAND, PHUONG Unavailable Unavailable KOREY RN, ALLY Unavailable Unavailable KEENA PT, PANKAJ Unavailable Unavailable Payers Payer Name Policy Type Policy Number Effective Date Expira tion Date MEDICARE.[facility] [id number] Problems Condition Name Condition Details Condition Category [...] HYPERCHOLEST EROLEMIA, UNSPECIFIED Active 10-28 00:00: 00 CUSTODIAL (CURRENT) USE OF INSULIN Active 10-28 00:00: 00 OPERATIONS MANAGEMENT TRAINEE (CURRENT) USE OF SYSTEMIC STEROIDS Active 10-28 00:00: 00 OPERATIONS MANAGEMENT TRAINEE (CURRENT) USE OF OPIATE ANALGESIC Active 10-28 [...] 10-27 00:00: 00 10-28 00:00 :00 No [id number] Per instruc tions Per instructio ns (route: oral) Med Classific ation: Analgesic , Anti-infl ammatory or Antipyret ic Dexcom G6 Sensor device 10-26 00:00: 00 10-28 00:00 :00 No [id number] Unavailable Per instruc tions Per instructio ns (route: miscellane ous) Med Classific ation: Medical Supplies and Durable Medical Equipment (DME) gabapentin 100 mg capsule 10-21 00:00: 00 10-28 00:00 :00 No [id number] Per instruc tions Per instructio ns (route: oral) Med Classific ation: Central Nervous System Agents amlodipine 10 mg tablet 10-19 00:00: 00 10-28 00:00 :00 No [id number] ESSENTIAL (PRIMARY) HYPERTENSIO N Per instruc tions DAILY Per instructio ns DAILY (route: oral) Med Classific ation: Cardiovas cular Therapy Agents Carin 2nd Gen Pen Needle 32 gauge x 5/32 10-19 00:00: 00 10-28 00:00 :00 No [id number] Per instruc tions INSULIN 5 TIMES DAILY Per instructio ns INSULIN 5 TIMES DAILY (route: miscellane ous) Med Classific ation: Medical Supplies and Durable Medical Equipment (DME) lisinopril 40 mg tablet 10-19 00:00: 00 10-28 00:00 :00 No [id number] ESSENTIAL (PRIMARY) HYPERTENSIO N Per instruc tions DAILY Per instructio ns DAILY (route: oral) Med Classific ation: Cardiovas cular Therapy Agents baclofen 10 mg tablet 10-15 00:00: 00 10-28 00:00 :00 No [id number] Per instruc tions Per instructio ns (route: oral) Med Classific ation: Locomotor System tramadol 50 mg tablet 10-15 00:00: 00 10-28 00:00 :00 No [id number] Per instruc tions Per instructio ns (route: oral) Med Classific ation: Analgesic , Anti-infl ammatory or Antipyret ic amoxicillin 875 mg tablet 10-13 00:00: 00 10-28 00:00 :00 No [id number] Per instruc tions Per instructio ns (route: oral) Med Classific ation: Anti-Infe ctive Agents chlorhexidi ne gluconate 0.12 % mouthwash 10-13 00:00: 00 10-28 00:00 :00 No [id number] Per instruc tions Per instructio ns (route: mucous membrane) Med Classific ation: Mouth-Thr oat-Denta l - Preparati ons cyclobenzap rine 10 mg tablet 10-09 00:00: 00 10-28 00:00 :00 No [id number] Per instruc tions Per instructio ns (route: oral) Med Classific ation: Locomotor System tadalafil 10 mg tablet 10-08 00:00: 00 10-28 00:00 :00 No [id number] MALE ERECTILE DYSFUNCTION , UNSPECIFIED Per instruc tions EVERY OTHER DAY NEEDED FOR SEXUAL ACTIVITY APPROXIMAT GONZALEZ 30 MINUTES PER 24 HOURS Per instructio ns EVERY OTHER DAY NEEDED FOR SEXUAL ACTIVITY APPROXIMAT GONZALEZ 30 MINUTES PER 24 HOURS (route: oral) Med Classific ation: Drugs to treat Erectile Dysfuncti on Ketostix strips 10-05 00:00: 00 10-28 00:00 :00 No [id number] 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 Per instruc tions AND DISCARD 1 TEST STRIP EVERY DAY NEEDED Per instructio ns AND DISCARD 1 TEST STRIP EVERY DAY NEEDED (route: miscellane ous) Med Classific ation: Medical Supplies and Durable Medical Equipment (DME) acetaminoph en 325 mg tablet 10-28 00:00: 00 Yes [id number] PAIN 2 tablet EVERY 4 HOURS 2 tablet EVERY 4 HOURS (route: oral) Med Classific ation: Analgesic , Anti-infl ammatory or Antipyret ic amlodipine 10 mg tablet 10-28 00:00: 00 Yes [id number] LOWERS BLOOD PRESSURE 1 tablet DAILY 1 tablet DAILY (route: oral) Med Classific ation: Cardiovas cular Therapy Agents atorvastati n 20 mg tablet 10-28 00:00: 00 Yes [id number] LOWERS CHOLESTEROL 1 tablet DAILY 1 tablet DAILY (route: oral) Med Classific ation: Cardiovas cular Therapy Agents cholecalcif swapna (vitamin D3) 25 mcg (1,000 unit) tablet 10-28 00:00: 00 Yes [id number] SUPPLEMENT 1 tablet DAILY 1 tablet DAILY (route: oral) Med Classific ation: Electroly te Balance-N utritiona l Products gabapentin 100 mg tablet 10-28 00:00: 00 Yes [id number] PAIN MANAGEMENT 1 tablet BEDTIME 1 tablet BEDTIME (route: oral) Med Classific ation: Central Nervous System Agents hydrochloro thiazide 12.5 mg tablet 10-28 00:00: 00 Yes [id number] FLUID RETENTION 1 tablet DAILY 1 tablet DAILY (route: oral) Med Classific ation: Cardiovas cular Therapy Agents insulin lispro (U-100) 100 unit/mL subcutaneou s pen 10-28 00:00: 00 Yes [id number] DIABETES Per instruc tions WITH MEALS Per instructio ns WITH MEALS (route: subcutaneo ) Med Classific ation: Endocrine lisinopril 40 mg tablet 10-28 00:00: 00 Yes [id number] LOWERS BLOOD PRESSURE 1 tablet DAILY 1 tablet DAILY (route: oral) Med Classific ation: Cardiovas cular Therapy Agents morphine 15 mg immediate release tablet 10-28 00:00: 00 Yes [id number] MODERATE PAIN 1 tablet EVERY 6 HOURS 1 tablet EVERY 6 HOURS (route: oral) Med Classific ation: Analgesic , Anti-infl ammatory or Antipyret ic omeprazole 20 mg capsule,del ayed release 10-28 00:00: 00 Yes [id number] GERD 1 capsule DAILY 1 capsule DAILY (route: oral) Med Classific ation: Gastroint estinal Therapy Agents prednisone 10 mg tablet 10-28 00:00: 00 Yes [id number] POLYMYALGIA 1 tablet DAILY 1 tablet DAILY (route: oral) Med Classific ation: Endocrine Tresiba FlexTouch U-100 insulin 100 unit/mL (3 mL) subcutaneou s pen 10-28 00:00: 00 Yes [id number] DIABETES 15 unit BEDTIME 15 unit BEDTIME (route: subcutaneo us) Med Classific ation: Endocrine naproxen 500 mg tablet 10-28 00:00: 00 Yes [id number] PAIN 1 tablet 2 TIMES DAILY 1 tablet 2 TIMES DAILY (route: oral) Med Classific ation: Analgesic , Anti-infl ammatory or Antipyret ic naproxen 500 mg tablet 11-18 00:00: 00 12-18 23:59 :00 No [id number] PAIN 1 tablet 2 TIMES DAILY 1 tablet 2 TIMES DAILY (route: oral) Med Classific ation: Analgesic , Anti-infl ammatory or Antipyret ic oxycodone 5 mg tablet 11-18 00:00: 00 Yes [id number] PAIN 1 tablet DAILY 1 tablet DAILY (route: oral) Med Classific ation: Analgesic , Anti-infl ammatory or Antipyret ic tramadol 50 mg tablet 12-18 00:00: 00 Yes [id number] SEVERE PAIN 1 tablet 3 TIMES DAILY [...] TO EVALUATE, OBSERVE / ASSESS, AND MONITOR, WAGE HAND TO OBSERVE AND MONITOR, PROVIDE SKILLED THERAPEUTIC INTERVENTION, ACTIVITY, EDUCATION, AND TRAINING TO ADDRESS; [code = AGENCY MAY PERFORM A RESUMPTION OF CARE VISIT FOLLOWING ANY HOSPITAL ADMISSION. PT TO EVALUATE, OBSERVE / ASSESS, AND MONITOR, WAGE HAND TO OBSERVE AND MONITOR, PROVIDE SKILLED THERAPEUTIC INTERVENTION, ACTIVITY, EDUCATION, AND TRAINING TO ADDRESS;] Future Scheduled Test PT/WAGE HAND TO PROVIDE GAIT TRAINING FOR IMPROVED MOBILITY AND /OR TO NORMALIZE GAIT PATTERN [code = PT/WAGE HAND TO PROVIDE GAIT TRAINING FOR IMPROVED MOBILITY AND /OR TO NORMALIZE GAIT PATTERN] Future Scheduled Test PT/WAGE HAND TO PROVIDE STAIR TRAINING [code = PT/WAGE HAND TO PROVIDE STAIR TRAINING] Future Scheduled Test NEUROMUSCU LAR RE-EDUCATION / BALANCE / POSTURAL CONTROL (PT) [code = NEUROMUSCULAR RE-EDUCATION / BALANCE / POSTURAL CONTROL (PT)] Future Scheduled Test THERAPEUTI C EXERCISES AND ESTABLISHING A HOME EXERCISE PROGRAM (PT/WAGE HAND) [code = THERAPEUTIC EXERCISES AND ESTABLISHING A HOME EXERCISE PROGRAM (PT/WAGE HAND)] Future Scheduled Test PT/WAGE HAND TO IDENTIFY FALL RISK FACTORS; EDUCATE THE PATIENT/CAREGIVER ON WAYS TO REDUCE FALL RISK FACTORS AND ESTABLISH HOME EXERCISE PROGRAM TO MINIMIZE FALL RISK. MAY TEACH THE PATIENT FLOOR RECOVERY WHEN CLINICALLY APPROPRIATE [code = PT/WAGE HAND TO IDENTIFY FALL RISK FACTORS; EDUCATE THE PATIENT/CAREGIVER ON WAYS TO REDUCE FALL RISK FACTORS AND ESTABLISH HOME EXERCISE PROGRAM TO MINIMIZE FALL RISK. MAY TEACH THE PATIENT FLOOR RECOVERY WHEN CLINICALLY APPROPRIATE] Future Scheduled Test PT/WAGE HAND TO EDUCATE ON ARTHRITIS SELF-MANAGEMENT PT/WAGE HAND MAY TEACH PATIENT APPLICATION OF CRYOTHERAPY/ HEAT FOR PAIN / SWELLING UP TO 20 MIN AT A TIME [code = PT/WAGE HAND TO EDUCATE ON ARTHRITIS SELF-MANAGEMENT PT/WAGE HAND MAY TEACH PATIENT APPLICATION OF CRYOTHERAPY/ HEAT FOR PAIN / SWELLING UP TO 20 MIN AT A TIME] Future Scheduled Test PT / WAGE HAND M AY EDUCATE ON PAIN MANAGEMENT CLINICALLY INDICATED, INCLUDING NON-PHARMACOLOGICAL PAIN REDUCTION TECHNIQUES AND USE OF CRYOTHERAPY OR HEAT UP TO 20 MIN AT A TIME FOR PAIN MANAGEMENT [code = PT / WAGE HAND MAY EDUCATE ON PAIN MANAGEMENT CLINICALLY INDICATED, INCLUDING NON-PHARMACOLOGICAL PAIN REDUCTION TECHNIQUES AND USE OF CRYOTHERAPY OR HEAT UP TO 20 MIN AT A TIME FOR PAIN MANAGEMENT] Future Scheduled Test PT / WAGE HAND T O MONITOR FOR HYPO/HYPERGLYCEMIA AND CONDUCT ROUTINE FOOT INSPECTIONS. RECORD PATIENT REPORTED BLOOD SUGAR LEVELS AND NOTIFY PHYSICIAN AND/OR THE RN CLINICAL EMOTIONALLY IMPAIRED TEACHER FOR PHYSICIAN NOTIFICATION IF BLOOD SUGAR LEVELS ARE OUTSIDE ORDERED PARAMETERS. TEACH PATIENT/CAREGIVER ON DAILY FOOT INSPECTIONS [code = PT / WAGE HAND TO MONITOR FOR HYPO/HYPERGLYCEMIA AND CONDUCT ROUTINE FOOT INSPECTIONS. RECORD PATIENT REPORTED BLOOD SUGAR LEVELS AND NOTIFY PHYSICIAN AND/OR THE RN CLINICAL EMOTIONALLY IMPAIRED TEACHER FOR PHYSICIAN NOTIFICATION IF BLOOD SUGAR LEVELS [...] 00:00:00 2025-04-25 00:00:00 Outpatient RECERTIFIC PANKAJ HASSAN [facility] [id number] 0.00
--- OUTSIDE RECORDS SUMMARY | 2025-04-24 19:00 | XMS_ITS | Clinical Summary ---
Author Organization Unknown Care Team Providers Care Film Spooler Name Role Phone PO PRAKASH KIRAN Unavailable Unavaila ble FECTEAU NETWORK INTERN, PHUONG Unavailable Unavailable KOREY RN, ALLY Unavailable Unavailable KEENA PT, PANKAJ Unavailable Unavailable Payers Payer Name Policy Type Policy Number Effective Date Expira tion Date MEDICARE.[facility] [id number] Problems Condition Name Condition Details Condition Category [...] HYPERCHOLEST EROLEMIA, UNSPECIFIED Active 10-28 00:00: 00 JAIL (CURRENT) USE OF INSULIN Active 10-28 00:00: 00 EFFICIENCY MINER (CURRENT) USE OF SYSTEMIC STEROIDS Active 10-28 00:00: 00 EFFICIENCY MINER (CURRENT) USE OF OPIATE ANALGESIC Active 10-28 [...] 10-27 00:00: 00 10-28 00:00 :00 No [id number] Per instruc tions Per instructio ns (route: oral) Med Classific ation: Analgesic , Anti-infl ammatory or Antipyret ic Dexcom G6 Sensor device 10-26 00:00: 00 10-28 00:00 :00 No [id number] Unavailable Per instruc tions Per instructio ns (route: miscellane ous) Med Classific ation: Medical Supplies and Durable Medical Equipment (DME) gabapentin 100 mg capsule 10-21 00:00: 00 10-28 00:00 :00 No [id number] Per instruc tions Per instructio ns (route: oral) Med Classific ation: Central Nervous System Agents amlodipine 10 mg tablet 10-19 00:00: 00 10-28 00:00 :00 No [id number] ESSENTIAL (PRIMARY) HYPERTENSIO N Per instruc tions DAILY Per instructio ns DAILY (route: oral) Med Classific ation: Cardiovas cular Therapy Agents Carin 2nd Gen Pen Needle 32 gauge x 5/32 10-19 00:00: 00 10-28 00:00 :00 No [id number] Per instruc tions INSULIN 5 TIMES DAILY Per instructio ns INSULIN 5 TIMES DAILY (route: miscellane ous) Med Classific ation: Medical Supplies and Durable Medical Equipment (DME) lisinopril 40 mg tablet 10-19 00:00: 00 10-28 00:00 :00 No [id number] ESSENTIAL (PRIMARY) HYPERTENSIO N Per instruc tions DAILY Per instructio ns DAILY (route: oral) Med Classific ation: Cardiovas cular Therapy Agents baclofen 10 mg tablet 10-15 00:00: 00 10-28 00:00 :00 No [id number] Per instruc tions Per instructio ns (route: oral) Med Classific ation: Locomotor System tramadol 50 mg tablet 10-15 00:00: 00 10-28 00:00 :00 No [id number] Per instruc tions Per instructio ns (route: oral) Med Classific ation: Analgesic , Anti-infl ammatory or Antipyret ic amoxicillin 875 mg tablet 10-13 00:00: 00 10-28 00:00 :00 No [id number] Per instruc tions Per instructio ns (route: oral) Med Classific ation: Anti-Infe ctive Agents chlorhexidi ne gluconate 0.12 % mouthwash 10-13 00:00: 00 10-28 00:00 :00 No [id number] Per instruc tions Per instructio ns (route: mucous membrane) Med Classific ation: Mouth-Thr oat-Denta l - Preparati ons cyclobenzap rine 10 mg tablet 10-09 00:00: 00 10-28 00:00 :00 No [id number] Per instruc tions Per instructio ns (route: oral) Med Classific ation: Locomotor System tadalafil 10 mg tablet 10-08 00:00: 00 10-28 00:00 :00 No [id number] MALE ERECTILE DYSFUNCTION , UNSPECIFIED Per instruc tions EVERY OTHER DAY NEEDED FOR SEXUAL ACTIVITY APPROXIMAT GONZALEZ 30 MINUTES PER 24 HOURS Per instructio ns EVERY OTHER DAY NEEDED FOR SEXUAL ACTIVITY APPROXIMAT GONZALEZ 30 MINUTES PER 24 HOURS (route: oral) Med Classific ation: Drugs to treat Erectile Dysfuncti on Ketostix strips 10-05 00:00: 00 10-28 00:00 :00 No [id number] 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 Per instruc tions AND DISCARD 1 TEST STRIP EVERY DAY NEEDED Per instructio ns AND DISCARD 1 TEST STRIP EVERY DAY NEEDED (route: miscellane ous) Med Classific ation: Medical Supplies and Durable Medical Equipment (DME) acetaminoph en 325 mg tablet 10-28 00:00: 00 Yes [id number] PAIN 2 tablet EVERY 4 HOURS 2 tablet EVERY 4 HOURS (route: oral) Med Classific ation: Analgesic , Anti-infl ammatory or Antipyret ic amlodipine 10 mg tablet 10-28 00:00: 00 Yes [id number] LOWERS BLOOD PRESSURE 1 tablet DAILY 1 tablet DAILY (route: oral) Med Classific ation: Cardiovas cular Therapy Agents atorvastati n 20 mg tablet 10-28 00:00: 00 Yes [id number] LOWERS CHOLESTEROL 1 tablet DAILY 1 tablet DAILY (route: oral) Med Classific ation: Cardiovas cular Therapy Agents cholecalcif swapna (vitamin D3) 25 mcg (1,000 unit) tablet 10-28 00:00: 00 Yes [id number] SUPPLEMENT 1 tablet DAILY 1 tablet DAILY (route: oral) Med Classific ation: Electroly te Balance-N utritiona l Products gabapentin 100 mg tablet 10-28 00:00: 00 Yes [id number] PAIN MANAGEMENT 1 tablet BEDTIME 1 tablet BEDTIME (route: oral) Med Classific ation: Central Nervous System Agents hydrochloro thiazide 12.5 mg tablet 10-28 00:00: 00 Yes [id number] FLUID RETENTION 1 tablet DAILY 1 tablet DAILY (route: oral) Med Classific ation: Cardiovas cular Therapy Agents insulin lispro (U-100) 100 unit/mL subcutaneou s pen 10-28 00:00: 00 Yes [id number] DIABETES Per instruc tions WITH MEALS Per instructio ns WITH MEALS (route: subcutaneo ) Med Classific ation: Endocrine lisinopril 40 mg tablet 10-28 00:00: 00 Yes [id number] LOWERS BLOOD PRESSURE 1 tablet DAILY 1 tablet DAILY (route: oral) Med Classific ation: Cardiovas cular Therapy Agents morphine 15 mg immediate release tablet 10-28 00:00: 00 Yes [id number] MODERATE PAIN 1 tablet EVERY 6 HOURS 1 tablet EVERY 6 HOURS (route: oral) Med Classific ation: Analgesic , Anti-infl ammatory or Antipyret ic omeprazole 20 mg capsule,del ayed release 10-28 00:00: 00 Yes [id number] GERD 1 capsule DAILY 1 capsule DAILY (route: oral) Med Classific ation: Gastroint estinal Therapy Agents prednisone 10 mg tablet 10-28 00:00: 00 Yes [id number] POLYMYALGIA 1 tablet DAILY 1 tablet DAILY (route: oral) Med Classific ation: Endocrine Tresiba FlexTouch U-100 insulin 100 unit/mL (3 mL) subcutaneou s pen 10-28 00:00: 00 Yes [id number] DIABETES 15 unit BEDTIME 15 unit BEDTIME (route: subcutaneo us) Med Classific ation: Endocrine naproxen 500 mg tablet 10-28 00:00: 00 Yes [id number] PAIN 1 tablet 2 TIMES DAILY 1 tablet 2 TIMES DAILY (route: oral) Med Classific ation: Analgesic , Anti-infl ammatory or Antipyret ic naproxen 500 mg tablet 11-18 00:00: 00 12-18 23:59 :00 No [id number] PAIN 1 tablet 2 TIMES DAILY 1 tablet 2 TIMES DAILY (route: oral) Med Classific ation: Analgesic , Anti-infl ammatory or Antipyret ic oxycodone 5 mg tablet 11-18 00:00: 00 Yes [id number] PAIN 1 tablet DAILY 1 tablet DAILY (route: oral) Med Classific ation: Analgesic , Anti-infl ammatory or Antipyret ic tramadol 50 mg tablet 12-18 00:00: 00 Yes [id number] SEVERE PAIN 1 tablet 3 TIMES DAILY [...] TO EVALUATE, OBSERVE / ASSESS, AND MONITOR, NETWORK INTERN TO OBSERVE AND MONITOR, PROVIDE SKILLED THERAPEUTIC INTERVENTION, ACTIVITY, EDUCATION, AND TRAINING TO ADDRESS; [code = AGENCY MAY PERFORM A RESUMPTION OF CARE VISIT FOLLOWING ANY HOSPITAL ADMISSION. PT TO EVALUATE, OBSERVE / ASSESS, AND MONITOR, NETWORK INTERN TO OBSERVE AND MONITOR, PROVIDE SKILLED THERAPEUTIC INTERVENTION, ACTIVITY, EDUCATION, AND TRAINING TO ADDRESS;] Future Scheduled Test PT/NETWORK INTERN TO PROVIDE GAIT TRAINING FOR IMPROVED MOBILITY AND /OR TO NORMALIZE GAIT PATTERN [code = PT/NETWORK INTERN TO PROVIDE GAIT TRAINING FOR IMPROVED MOBILITY AND /OR TO NORMALIZE GAIT PATTERN] Future Scheduled Test PT/NETWORK INTERN TO PROVIDE STAIR TRAINING [code = PT/NETWORK INTERN TO PROVIDE STAIR TRAINING] Future Scheduled Test NEUROMUSCU LAR RE-EDUCATION / BALANCE / POSTURAL CONTROL (PT) [code = NEUROMUSCULAR RE-EDUCATION / BALANCE / POSTURAL CONTROL (PT)] Future Scheduled Test THERAPEUTI C EXERCISES AND ESTABLISHING A HOME EXERCISE PROGRAM (PT/NETWORK INTERN) [code = THERAPEUTIC EXERCISES AND ESTABLISHING A HOME EXERCISE PROGRAM (PT/NETWORK INTERN)] Future Scheduled Test PT/NETWORK INTERN TO IDENTIFY FALL RISK FACTORS; EDUCATE THE PATIENT/CAREGIVER ON WAYS TO REDUCE FALL RISK FACTORS AND ESTABLISH HOME EXERCISE PROGRAM TO MINIMIZE FALL RISK. MAY TEACH THE PATIENT FLOOR RECOVERY WHEN CLINICALLY APPROPRIATE [code = PT/NETWORK INTERN TO IDENTIFY FALL RISK FACTORS; EDUCATE THE PATIENT/CAREGIVER ON WAYS TO REDUCE FALL RISK FACTORS AND ESTABLISH HOME EXERCISE PROGRAM TO MINIMIZE FALL RISK. MAY TEACH THE PATIENT FLOOR RECOVERY WHEN CLINICALLY APPROPRIATE] Future Scheduled Test PT/NETWORK INTERN TO EDUCATE ON ARTHRITIS SELF-MANAGEMENT PT/NETWORK INTERN MAY TEACH PATIENT APPLICATION OF CRYOTHERAPY/ HEAT FOR PAIN / SWELLING UP TO 20 MIN AT A TIME [code = PT/NETWORK INTERN TO EDUCATE ON ARTHRITIS SELF-MANAGEMENT PT/NETWORK INTERN MAY TEACH PATIENT APPLICATION OF CRYOTHERAPY/ HEAT FOR PAIN / SWELLING UP TO 20 MIN AT A TIME] Future Scheduled Test PT / NETWORK INTERN M AY EDUCATE ON PAIN MANAGEMENT CLINICALLY INDICATED, INCLUDING NON-PHARMACOLOGICAL PAIN REDUCTION TECHNIQUES AND USE OF CRYOTHERAPY OR HEAT UP TO 20 MIN AT A TIME FOR PAIN MANAGEMENT [code = PT / NETWORK INTERN MAY EDUCATE ON PAIN MANAGEMENT CLINICALLY INDICATED, INCLUDING NON-PHARMACOLOGICAL PAIN REDUCTION TECHNIQUES AND USE OF CRYOTHERAPY OR HEAT UP TO 20 MIN AT A TIME FOR PAIN MANAGEMENT] Future Scheduled Test PT / NETWORK INTERN T O MONITOR FOR HYPO/HYPERGLYCEMIA AND CONDUCT ROUTINE FOOT INSPECTIONS. RECORD PATIENT REPORTED BLOOD SUGAR LEVELS AND NOTIFY PHYSICIAN AND/OR THE RN CLINICAL LODE MINER BLASTING FOR PHYSICIAN NOTIFICATION IF BLOOD SUGAR LEVELS ARE OUTSIDE ORDERED PARAMETERS. TEACH PATIENT/CAREGIVER ON DAILY FOOT INSPECTIONS [code = PT / NETWORK INTERN TO MONITOR FOR HYPO/HYPERGLYCEMIA AND CONDUCT ROUTINE FOOT INSPECTIONS. RECORD PATIENT REPORTED BLOOD SUGAR LEVELS AND NOTIFY PHYSICIAN AND/OR THE RN CLINICAL LODE MINER BLASTING FOR PHYSICIAN NOTIFICATION IF BLOOD SUGAR LEVELS [...] 00:00:00 Outpatient RECERTIFIC PANKAJ HASSAN [facility] [id number] 0.00
--- OUTSIDE RECORDS SUMMARY | 2025-04-24 19:00 | XMS_ITS | Clinical Summary ---
Author Organization Unknown Care Team Providers Care Human Resources Talent Manager Name Role Phone PO PRAKASH KIRAN Unavailable Unavaila ble FECTEAU SCALP TREATMENT SPECIALIST, PHUONG Unavailable Unavailable KOREY RN, ALLY Unavailable Unavailable KEENA PT, PANKAJ Unavailable Unavailable Payers Payer Name Policy Type Policy Number Effective Date Expira tion Date MEDICARE.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 (CURRENT) USE OF SYSTEMIC STEROIDS Active 10-28 00:00: 00 AMMONIUM NITRATE CRYSTALLIZER (CURRENT) USE OF OPIATE ANALGESIC Active 10-28 [...] 10-27 00:00: 00 10-28 00:00 :00 No [id number] Per instruc tions Per instructio ns (route: oral) Med Classific ation: Analgesic , Anti-infl ammatory or Antipyret ic Dexcom G6 Sensor device 10-26 00:00: 00 10-28 00:00 :00 No [id number] Unavailable Per instruc tions Per instructio ns (route: miscellane ous) Med Classific ation: Medical Supplies and Durable Medical Equipment (DME) gabapentin 100 mg capsule 10-21 00:00: 00 10-28 00:00 :00 No [id number] Per instruc tions Per instructio ns (route: oral) Med Classific ation: Central Nervous System Agents amlodipine 10 mg tablet 10-19 00:00: 00 10-28 00:00 :00 No [id number] ESSENTIAL (PRIMARY) HYPERTENSIO N Per instruc tions DAILY Per instructio ns DAILY (route: oral) Med Classific ation: Cardiovas cular Therapy Agents Carin 2nd Gen Pen Needle 32 gauge x 5/32 10-19 00:00: 00 10-28 00:00 :00 No [id number] Per instruc tions INSULIN 5 TIMES DAILY Per instructio ns INSULIN 5 TIMES DAILY (route: miscellane ous) Med Classific ation: Medical Supplies and Durable Medical Equipment (DME) lisinopril 40 mg tablet 10-19 00:00: 00 10-28 00:00 :00 No [id number] ESSENTIAL (PRIMARY) HYPERTENSIO N Per instruc tions DAILY Per instructio ns DAILY (route: oral) Med Classific ation: Cardiovas cular Therapy Agents baclofen 10 mg tablet 10-15 00:00: 00 10-28 00:00 :00 No [id number] Per instruc tions Per instructio ns (route: oral) Med Classific ation: Locomotor System tramadol 50 mg tablet 10-15 00:00: 00 10-28 00:00 :00 No [id number] Per instruc tions Per instructio ns (route: oral) Med Classific ation: Analgesic , Anti-infl ammatory or Antipyret ic amoxicillin 875 mg tablet 10-13 00:00: 00 10-28 00:00 :00 No [id number] Per instruc tions Per instructio ns (route: oral) Med Classific ation: Anti-Infe ctive Agents chlorhexidi ne gluconate 0.12 % mouthwash 10-13 00:00: 00 10-28 00:00 :00 No [id number] Per instruc tions Per instructio ns (route: mucous membrane) Med Classific ation: Mouth-Thr oat-Denta l - Preparati ons cyclobenzap rine 10 mg tablet 10-09 00:00: 00 10-28 00:00 :00 No [id number] Per instruc tions Per instructio ns (route: oral) Med Classific ation: Locomotor System tadalafil 10 mg tablet 10-08 00:00: 00 10-28 00:00 :00 No [id number] MALE ERECTILE DYSFUNCTION , UNSPECIFIED Per instruc tions EVERY OTHER DAY NEEDED FOR SEXUAL ACTIVITY APPROXIMAT GONZALEZ 30 MINUTES PER 24 HOURS Per instructio ns EVERY OTHER DAY NEEDED FOR SEXUAL ACTIVITY APPROXIMAT GONZALEZ 30 MINUTES PER 24 HOURS (route: oral) Med Classific ation: Drugs to treat Erectile Dysfuncti on Ketostix strips 10-05 00:00: 00 10-28 00:00 :00 No [id number] 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 Per instruc tions AND DISCARD 1 TEST STRIP EVERY DAY NEEDED Per instructio ns AND DISCARD 1 TEST STRIP EVERY DAY NEEDED (route: miscellane ous) Med Classific ation: Medical Supplies and Durable Medical Equipment (DME) acetaminoph en 325 mg tablet 10-28 00:00: 00 Yes [id number] PAIN 2 tablet EVERY 4 HOURS 2 tablet EVERY 4 HOURS (route: oral) Med Classific ation: Analgesic , Anti-infl ammatory or Antipyret ic amlodipine 10 mg tablet 10-28 00:00: 00 Yes [id number] LOWERS BLOOD PRESSURE 1 tablet DAILY 1 tablet DAILY (route: oral) Med Classific ation: Cardiovas cular Therapy Agents atorvastati n 20 mg tablet 10-28 00:00: 00 Yes [id number] LOWERS CHOLESTEROL 1 tablet DAILY 1 tablet DAILY (route: oral) Med Classific ation: Cardiovas cular Therapy Agents cholecalcif swapna (vitamin D3) 25 mcg (1,000 unit) tablet 10-28 00:00: 00 Yes [id number] SUPPLEMENT 1 tablet DAILY 1 tablet DAILY (route: oral) Med Classific ation: Electroly te Balance-N utritiona l Products gabapentin 100 mg tablet 10-28 00:00: 00 Yes [id number] PAIN MANAGEMENT 1 tablet BEDTIME 1 tablet BEDTIME (route: oral) Med Classific ation: Central Nervous System Agents hydrochloro thiazide 12.5 mg tablet 10-28 00:00: 00 Yes [id number] FLUID RETENTION 1 tablet DAILY 1 tablet DAILY (route: oral) Med Classific ation: Cardiovas cular Therapy Agents insulin lispro (U-100) 100 unit/mL subcutaneou s pen 10-28 00:00: 00 Yes [id number] DIABETES Per instruc tions WITH MEALS Per instructio ns WITH MEALS (route: subcutaneo ) Med Classific ation: Endocrine lisinopril 40 mg tablet 10-28 00:00: 00 Yes [id number] LOWERS BLOOD PRESSURE 1 tablet DAILY 1 tablet DAILY (route: oral) Med Classific ation: Cardiovas cular Therapy Agents morphine 15 mg immediate release tablet 10-28 00:00: 00 Yes [id number] MODERATE PAIN 1 tablet EVERY 6 HOURS 1 tablet EVERY 6 HOURS (route: oral) Med Classific ation: Analgesic , Anti-infl ammatory or Antipyret ic omeprazole 20 mg capsule,del ayed release 10-28 00:00: 00 Yes [id number] GERD 1 capsule DAILY 1 capsule DAILY (route: oral) Med Classific ation: Gastroint estinal Therapy Agents prednisone 10 mg tablet 10-28 00:00: 00 Yes [id number] POLYMYALGIA 1 tablet DAILY 1 tablet DAILY (route: oral) Med Classific ation: Endocrine Tresiba FlexTouch U-100 insulin 100 unit/mL (3 mL) subcutaneou s pen 10-28 00:00: 00 Yes [id number] DIABETES 15 unit BEDTIME 15 unit BEDTIME (route: subcutaneo us) Med Classific ation: Endocrine naproxen 500 mg tablet 10-28 00:00: 00 Yes [id number] PAIN 1 tablet 2 TIMES DAILY 1 tablet 2 TIMES DAILY (route: oral) Med Classific ation: Analgesic , Anti-infl ammatory or Antipyret ic naproxen 500 mg tablet 11-18 00:00: 00 12-18 23:59 :00 No [id number] PAIN 1 tablet 2 TIMES DAILY 1 tablet 2 TIMES DAILY (route: oral) Med Classific ation: Analgesic , Anti-infl ammatory or Antipyret ic oxycodone 5 mg tablet 11-18 00:00: 00 Yes [id number] PAIN 1 tablet DAILY 1 tablet DAILY (route: oral) Med Classific ation: Analgesic , Anti-infl ammatory or Antipyret ic tramadol 50 mg tablet 12-18 00:00: 00 Yes [id number] SEVERE PAIN 1 tablet 3 TIMES DAILY [...] TO EVALUATE, OBSERVE / ASSESS, AND MONITOR, SCALP TREATMENT SPECIALIST TO OBSERVE AND MONITOR, PROVIDE SKILLED THERAPEUTIC INTERVENTION, ACTIVITY, EDUCATION, AND TRAINING TO ADDRESS; [code = AGENCY MAY PERFORM A RESUMPTION OF CARE VISIT FOLLOWING ANY HOSPITAL ADMISSION. PT TO EVALUATE, OBSERVE / ASSESS, AND MONITOR, SCALP TREATMENT SPECIALIST TO OBSERVE AND MONITOR, PROVIDE SKILLED THERAPEUTIC INTERVENTION, ACTIVITY, EDUCATION, AND TRAINING TO ADDRESS;] Future Scheduled Test PT/SCALP TREATMENT SPECIALIST TO PROVIDE GAIT TRAINING FOR IMPROVED MOBILITY AND /OR TO NORMALIZE GAIT PATTERN [code = PT/SCALP TREATMENT SPECIALIST TO PROVIDE GAIT TRAINING FOR IMPROVED MOBILITY AND /OR TO NORMALIZE GAIT PATTERN] Future Scheduled Test PT/SCALP TREATMENT SPECIALIST TO PROVIDE STAIR TRAINING [code = PT/SCALP TREATMENT SPECIALIST TO PROVIDE STAIR TRAINING] Future Scheduled Test NEUROMUSCU LAR RE-EDUCATION / BALANCE / POSTURAL CONTROL (PT) [code = NEUROMUSCULAR RE-EDUCATION / BALANCE / POSTURAL CONTROL (PT)] Future Scheduled Test THERAPEUTI C EXERCISES AND ESTABLISHING A HOME EXERCISE PROGRAM (PT/SCALP TREATMENT SPECIALIST) [code = THERAPEUTIC EXERCISES AND ESTABLISHING A HOME EXERCISE PROGRAM (PT/SCALP TREATMENT SPECIALIST)] Future Scheduled Test PT/SCALP TREATMENT SPECIALIST TO IDENTIFY FALL RISK FACTORS; EDUCATE THE PATIENT/CAREGIVER ON WAYS TO REDUCE FALL RISK FACTORS AND ESTABLISH HOME EXERCISE PROGRAM TO MINIMIZE FALL RISK. MAY TEACH THE PATIENT FLOOR RECOVERY WHEN CLINICALLY APPROPRIATE [code = PT/SCALP TREATMENT SPECIALIST TO IDENTIFY FALL RISK FACTORS; EDUCATE THE PATIENT/CAREGIVER ON WAYS TO REDUCE FALL RISK FACTORS AND ESTABLISH HOME EXERCISE PROGRAM TO MINIMIZE FALL RISK. MAY TEACH THE PATIENT FLOOR RECOVERY WHEN CLINICALLY APPROPRIATE] Future Scheduled Test PT/SCALP TREATMENT SPECIALIST TO EDUCATE ON ARTHRITIS SELF-MANAGEMENT PT/SCALP TREATMENT SPECIALIST MAY TEACH PATIENT APPLICATION OF CRYOTHERAPY/ HEAT FOR PAIN / SWELLING UP TO 20 MIN AT A TIME [code = PT/SCALP TREATMENT SPECIALIST TO EDUCATE ON ARTHRITIS SELF-MANAGEMENT PT/SCALP TREATMENT SPECIALIST MAY TEACH PATIENT APPLICATION OF CRYOTHERAPY/ HEAT FOR PAIN / SWELLING UP TO 20 MIN AT A TIME] Future Scheduled Test PT / SCALP TREATMENT SPECIALIST M AY EDUCATE ON PAIN MANAGEMENT CLINICALLY INDICATED, INCLUDING NON-PHARMACOLOGICAL PAIN REDUCTION TECHNIQUES AND USE OF CRYOTHERAPY OR HEAT UP TO 20 MIN AT A TIME FOR PAIN MANAGEMENT [code = PT / SCALP TREATMENT SPECIALIST MAY EDUCATE ON PAIN MANAGEMENT CLINICALLY INDICATED, INCLUDING NON-PHARMACOLOGICAL PAIN REDUCTION TECHNIQUES AND USE OF CRYOTHERAPY OR HEAT UP TO 20 MIN AT A TIME FOR PAIN MANAGEMENT] Future Scheduled Test PT / SCALP TREATMENT SPECIALIST T O MONITOR FOR HYPO/HYPERGLYCEMIA AND CONDUCT ROUTINE FOOT INSPECTIONS. RECORD PATIENT REPORTED BLOOD SUGAR LEVELS AND NOTIFY PHYSICIAN AND/OR THE RN CLINICAL ENTERPRISE SOFTWARE DEVELOPER FOR PHYSICIAN NOTIFICATION IF BLOOD SUGAR LEVELS ARE OUTSIDE ORDERED PARAMETERS. TEACH PATIENT/CAREGIVER ON DAILY FOOT INSPECTIONS [code = PT / SCALP TREATMENT SPECIALIST TO MONITOR FOR HYPO/HYPERGLYCEMIA AND CONDUCT ROUTINE FOOT INSPECTIONS. RECORD PATIENT REPORTED BLOOD SUGAR LEVELS AND NOTIFY PHYSICIAN AND/OR THE RN CLINICAL ENTERPRISE SOFTWARE DEVELOPER FOR PHYSICIAN NOTIFICATION IF BLOOD SUGAR LEVELS [...] End Date/Time Encounter Type Admission Type Attending [facility] Facility Care Department Encounter ID Discharge Date Discharge Status Discharge Condition Discharge Reason Percent Goals Met 2025-02-25 00:00:00 2025-04-25 00:00:00 Outpatient RECERTIFIC PANKAJ HASSAN [facility] [id number] 0.00
--- OUTSIDE RECORDS SUMMARY | 2025-04-24 19:00 | XMS_ITS | Clinical Summary ---
Author Organization Unknown Care Team Providers Care Dry Pan Operator Name Role Phone PO PRAKASH KIRAN Unavailable Unavaila ble FECTEAU STUDIO MUSICIAN, PHUONG Unavailable Unavailable KOREY RN, ALLY Unavailable Unavailable KEENA PT, PANKAJ Unavailable Unavailable Payers Payer Name Policy Type Policy Number Effective Date Expira tion Date MEDICARE.[facility] [id number] Problems Condition Name Condition Details Condition Category [...] HYPERCHOLEST EROLEMIA, UNSPECIFIED Active 10-28 00:00: 00 [facility] (CURRENT) USE OF INSULIN Active 10-28 00:00: 00 [employer] (CURRENT) USE OF SYSTEMIC STEROIDS Active 10-28 00:00: 00 [employer] (CURRENT) USE OF OPIATE ANALGESIC Active 10-28 [...] 10-27 00:00: 00 10-28 00:00 :00 No [id number] Per instruc tions Per instructio ns (route: oral) Med Classific ation: Analgesic , Anti-infl ammatory or Antipyret ic Dexcom G6 Sensor device 10-26 00:00: 00 10-28 00:00 :00 No [id number] Unavailable Per instruc tions Per instructio ns (route: miscellane ous) Med Classific ation: Medical Supplies and Durable Medical Equipment (DME) gabapentin 100 mg capsule 10-21 00:00: 00 10-28 00:00 :00 No [id number] Per instruc tions Per instructio ns (route: oral) Med Classific ation: Central Nervous System Agents amlodipine 10 mg tablet 10-19 00:00: 00 10-28 00:00 :00 No [id number] ESSENTIAL (PRIMARY) HYPERTENSIO N Per instruc tions DAILY Per instructio ns DAILY (route: oral) Med Classific ation: Cardiovas cular Therapy Agents Carin 2nd Gen Pen Needle 32 gauge x 5/32 10-19 00:00: 00 10-28 00:00 :00 No [id number] Per instruc tions INSULIN 5 TIMES DAILY Per instructio ns INSULIN 5 TIMES DAILY (route: miscellane ous) Med Classific ation: Medical Supplies and Durable Medical Equipment (DME) lisinopril 40 mg tablet 10-19 00:00: 00 10-28 00:00 :00 No [id number] ESSENTIAL (PRIMARY) HYPERTENSIO N Per instruc tions DAILY Per instructio ns DAILY (route: oral) Med Classific ation: Cardiovas cular Therapy Agents baclofen 10 mg tablet 10-15 00:00: 00 10-28 00:00 :00 No [id number] Per instruc tions Per instructio ns (route: oral) Med Classific ation: Locomotor System tramadol 50 mg tablet 10-15 00:00: 00 10-28 00:00 :00 No [id number] Per instruc tions Per instructio ns (route: oral) Med Classific ation: Analgesic , Anti-infl ammatory or Antipyret ic amoxicillin 875 mg tablet 10-13 00:00: 00 10-28 00:00 :00 No [id number] Per instruc tions Per instructio ns (route: oral) Med Classific ation: Anti-Infe ctive Agents chlorhexidi ne gluconate 0.12 % mouthwash 10-13 00:00: 00 10-28 00:00 :00 No [id number] Per instruc tions Per instructio ns (route: mucous membrane) Med Classific ation: Mouth-Thr oat-Denta l - Preparati ons cyclobenzap rine 10 mg tablet 10-09 00:00: 00 10-28 00:00 :00 No [id number] Per instruc tions Per instructio ns (route: oral) Med Classific ation: Locomotor System tadalafil 10 mg tablet 10-08 00:00: 00 10-28 00:00 :00 No [id number] MALE ERECTILE DYSFUNCTION , UNSPECIFIED Per instruc tions EVERY OTHER DAY NEEDED FOR SEXUAL ACTIVITY APPROXIMAT GONZALEZ 30 MINUTES PER 24 HOURS Per instructio ns EVERY OTHER DAY NEEDED FOR SEXUAL ACTIVITY APPROXIMAT GONZALEZ 30 MINUTES PER 24 HOURS (route: oral) Med Classific ation: Drugs to treat Erectile Dysfuncti on Ketostix strips 10-05 00:00: 00 10-28 00:00 :00 No [id number] 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 Per instruc tions AND DISCARD 1 TEST STRIP EVERY DAY NEEDED Per instructio ns AND DISCARD 1 TEST STRIP EVERY DAY NEEDED (route: miscellane ous) Med Classific ation: Medical Supplies and Durable Medical Equipment (DME) acetaminoph en 325 mg tablet 10-28 00:00: 00 Yes [id number] PAIN 2 tablet EVERY 4 HOURS 2 tablet EVERY 4 HOURS (route: oral) Med Classific ation: Analgesic , Anti-infl ammatory or Antipyret ic amlodipine 10 mg tablet 10-28 00:00: 00 Yes [id number] LOWERS BLOOD PRESSURE 1 tablet DAILY 1 tablet DAILY (route: oral) Med Classific ation: Cardiovas cular Therapy Agents atorvastati n 20 mg tablet 10-28 00:00: 00 Yes [id number] LOWERS CHOLESTEROL 1 tablet DAILY 1 tablet DAILY (route: oral) Med Classific ation: Cardiovas cular Therapy Agents cholecalcif swapna (vitamin D3) 25 mcg (1,000 unit) tablet 10-28 00:00: 00 Yes [id number] SUPPLEMENT 1 tablet DAILY 1 tablet DAILY (route: oral) Med Classific ation: Electroly te Balance-N utritiona l Products gabapentin 100 mg tablet 10-28 00:00: 00 Yes [id number] PAIN MANAGEMENT 1 tablet BEDTIME 1 tablet BEDTIME (route: oral) Med Classific ation: Central Nervous System Agents hydrochloro thiazide 12.5 mg tablet 10-28 00:00: 00 Yes [id number] FLUID RETENTION 1 tablet DAILY 1 tablet DAILY (route: oral) Med Classific ation: Cardiovas cular Therapy Agents insulin lispro (U-100) 100 unit/mL subcutaneou s pen 10-28 00:00: 00 Yes [id number] DIABETES Per instruc tions WITH MEALS Per instructio ns WITH MEALS (route: subcutaneo ) Med Classific ation: Endocrine lisinopril 40 mg tablet 10-28 00:00: 00 Yes [id number] LOWERS BLOOD PRESSURE 1 tablet DAILY 1 tablet DAILY (route: oral) Med Classific ation: Cardiovas cular Therapy Agents morphine 15 mg immediate release tablet 10-28 00:00: 00 Yes [id number] MODERATE PAIN 1 tablet EVERY 6 HOURS 1 tablet EVERY 6 HOURS (route: oral) Med Classific ation: Analgesic , Anti-infl ammatory or Antipyret ic omeprazole 20 mg capsule,del ayed release 10-28 00:00: 00 Yes [id number] GERD 1 capsule DAILY 1 capsule DAILY (route: oral) Med Classific ation: Gastroint estinal Therapy Agents prednisone 10 mg tablet 10-28 00:00: 00 Yes [id number] POLYMYALGIA 1 tablet DAILY 1 tablet DAILY (route: oral) Med Classific ation: Endocrine Tresiba FlexTouch U-100 insulin 100 unit/mL (3 mL) subcutaneou s pen 10-28 00:00: 00 Yes [id number] DIABETES 15 unit BEDTIME 15 unit BEDTIME (route: subcutaneo us) Med Classific ation: Endocrine naproxen 500 mg tablet 10-28 00:00: 00 Yes [id number] PAIN 1 tablet 2 TIMES DAILY 1 tablet 2 TIMES DAILY (route: oral) Med Classific ation: Analgesic , Anti-infl ammatory or Antipyret ic naproxen 500 mg tablet 11-18 00:00: 00 12-18 23:59 :00 No [id number] PAIN 1 tablet 2 TIMES DAILY 1 tablet 2 TIMES DAILY (route: oral) Med Classific ation: Analgesic , Anti-infl ammatory or Antipyret ic oxycodone 5 mg tablet 11-18 00:00: 00 Yes [id number] PAIN 1 tablet DAILY 1 tablet DAILY (route: oral) Med Classific ation: Analgesic , Anti-infl ammatory or Antipyret ic tramadol 50 mg tablet 12-18 00:00: 00 Yes [id number] SEVERE PAIN 1 tablet 3 TIMES DAILY [...] TO EVALUATE, OBSERVE / ASSESS, AND MONITOR, STUDIO MUSICIAN TO OBSERVE AND MONITOR, PROVIDE SKILLED THERAPEUTIC INTERVENTION, ACTIVITY, EDUCATION, AND TRAINING TO ADDRESS; [code = AGENCY MAY PERFORM A RESUMPTION OF CARE VISIT FOLLOWING ANY HOSPITAL ADMISSION. PT TO EVALUATE, OBSERVE / ASSESS, AND MONITOR, STUDIO MUSICIAN TO OBSERVE AND MONITOR, PROVIDE SKILLED THERAPEUTIC INTERVENTION, ACTIVITY, EDUCATION, AND TRAINING TO ADDRESS;] Future Scheduled Test PT/STUDIO MUSICIAN TO PROVIDE GAIT TRAINING FOR IMPROVED MOBILITY AND /OR TO NORMALIZE GAIT PATTERN [code = PT/STUDIO MUSICIAN TO PROVIDE GAIT TRAINING FOR IMPROVED MOBILITY AND /OR TO NORMALIZE GAIT PATTERN] Future Scheduled Test PT/STUDIO MUSICIAN TO PROVIDE STAIR TRAINING [code = PT/STUDIO MUSICIAN TO PROVIDE STAIR TRAINING] Future Scheduled Test NEUROMUSCU LAR RE-EDUCATION / BALANCE / POSTURAL CONTROL (PT) [code = NEUROMUSCULAR RE-EDUCATION / BALANCE / POSTURAL CONTROL (PT)] Future Scheduled Test THERAPEUTI C EXERCISES AND ESTABLISHING A HOME EXERCISE PROGRAM (PT/STUDIO MUSICIAN) [code = THERAPEUTIC EXERCISES AND ESTABLISHING A HOME EXERCISE PROGRAM (PT/STUDIO MUSICIAN)] Future Scheduled Test PT/STUDIO MUSICIAN TO IDENTIFY FALL RISK FACTORS; EDUCATE THE PATIENT/CAREGIVER ON WAYS TO REDUCE FALL RISK FACTORS AND ESTABLISH HOME EXERCISE PROGRAM TO MINIMIZE FALL RISK. MAY TEACH THE PATIENT FLOOR RECOVERY WHEN CLINICALLY APPROPRIATE [code = PT/STUDIO MUSICIAN TO IDENTIFY FALL RISK FACTORS; EDUCATE THE PATIENT/CAREGIVER ON WAYS TO REDUCE FALL RISK FACTORS AND ESTABLISH HOME EXERCISE PROGRAM TO MINIMIZE FALL RISK. MAY TEACH THE PATIENT FLOOR RECOVERY WHEN CLINICALLY APPROPRIATE] Future Scheduled Test PT/STUDIO MUSICIAN TO EDUCATE ON ARTHRITIS SELF-MANAGEMENT PT/STUDIO MUSICIAN MAY TEACH PATIENT APPLICATION OF CRYOTHERAPY/ HEAT FOR PAIN / SWELLING UP TO 20 MIN AT A TIME [code = PT/STUDIO MUSICIAN TO EDUCATE ON ARTHRITIS SELF-MANAGEMENT PT/STUDIO MUSICIAN MAY TEACH PATIENT APPLICATION OF CRYOTHERAPY/ HEAT FOR PAIN / SWELLING UP TO 20 MIN AT A TIME] Future Scheduled Test PT / STUDIO MUSICIAN M AY EDUCATE ON PAIN MANAGEMENT CLINICALLY INDICATED, INCLUDING NON-PHARMACOLOGICAL PAIN REDUCTION TECHNIQUES AND USE OF CRYOTHERAPY OR HEAT UP TO 20 MIN AT A TIME FOR PAIN MANAGEMENT [code = PT / STUDIO MUSICIAN MAY EDUCATE ON PAIN MANAGEMENT CLINICALLY INDICATED, INCLUDING NON-PHARMACOLOGICAL PAIN REDUCTION TECHNIQUES AND USE OF CRYOTHERAPY OR HEAT UP TO 20 MIN AT A TIME FOR PAIN MANAGEMENT] Future Scheduled Test PT / STUDIO MUSICIAN T O MONITOR FOR HYPO/HYPERGLYCEMIA AND CONDUCT ROUTINE FOOT INSPECTIONS. RECORD PATIENT REPORTED BLOOD SUGAR LEVELS AND NOTIFY PHYSICIAN AND/OR THE RN CLINICAL MAINTENANCE MECHANIC MILLWRIGHT FOR PHYSICIAN NOTIFICATION IF BLOOD SUGAR LEVELS ARE OUTSIDE ORDERED PARAMETERS. TEACH PATIENT/CAREGIVER ON DAILY FOOT INSPECTIONS [code = PT / STUDIO MUSICIAN TO MONITOR FOR HYPO/HYPERGLYCEMIA AND CONDUCT ROUTINE FOOT INSPECTIONS. RECORD PATIENT REPORTED BLOOD SUGAR LEVELS AND NOTIFY PHYSICIAN AND/OR THE RN CLINICAL MAINTENANCE MECHANIC MILLWRIGHT FOR PHYSICIAN NOTIFICATION IF BLOOD SUGAR LEVELS [...] Date/Time Encounter Type Admission Type Attending [facility] Care Department Encounter ID Discharge Date Discharge Status Discharge Condition Discharge Reason Percent Goals Met 2025-02-25 00:00:00 2025-04-25 00:00:00 Outpatient RECERTIFIC PANKAJ HASSAN [facility] [id number] [id number]
--- OUTSIDE RECORDS SUMMARY | 2025-04-24 19:00 | XMS_ITS | Clinical Summary ---
Author Organization Unknown Care Team Providers Care Online Marketing Manager Name Role Phone PO PRAKASH KIRAN Unavailable Unavaila ble FECTEAU MEDICARE BILLER, PHUONG Unavailable Unavailable KOREY RN, ALLY Unavailable Unavailable KEENA PT, PANKAJ Unavailable Unavailable Payers Payer Name Policy Type Policy Number Effective Date Expira tion Date MEDICARE.[facility] [id number] Problems Condition Name Condition Details Condition Category [...] HYPERCHOLEST EROLEMIA, UNSPECIFIED Active 10-28 00:00: 00 INTERMEDIATE (CURRENT) USE OF INSULIN Active 10-28 00:00: 00 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 (CURRENT) USE OF SYSTEMIC STEROIDS Active 10-28 00:00: 00 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 (CURRENT) USE OF OPIATE ANALGESIC Active 10-28 [...] 10-27 00:00: 00 10-28 00:00 :00 No [id number] Per instruc tions Per instructio ns (route: oral) Med Classific ation: Analgesic , Anti-infl ammatory or Antipyret ic Dexcom G6 Sensor device 10-26 00:00: 00 10-28 00:00 :00 No [id number] Unavailable Per instruc tions Per instructio ns (route: miscellane ous) Med Classific ation: Medical Supplies and Durable Medical Equipment (DME) gabapentin 100 mg capsule 10-21 00:00: 00 10-28 00:00 :00 No [id number] Per instruc tions Per instructio ns (route: oral) Med Classific ation: Central Nervous System Agents amlodipine 10 mg tablet 10-19 00:00: 00 10-28 00:00 :00 No [id number] ESSENTIAL (PRIMARY) HYPERTENSIO N Per instruc tions DAILY Per instructio ns DAILY (route: oral) Med Classific ation: Cardiovas cular Therapy Agents Carin 2nd Gen Pen Needle 32 gauge x 5/32 10-19 00:00: 00 10-28 00:00 :00 No [id number] Per instruc tions INSULIN 5 TIMES DAILY Per instructio ns INSULIN 5 TIMES DAILY (route: miscellane ous) Med Classific ation: Medical Supplies and Durable Medical Equipment (DME) lisinopril 40 mg tablet 10-19 00:00: 00 10-28 00:00 :00 No [id number] ESSENTIAL (PRIMARY) HYPERTENSIO N Per instruc tions DAILY Per instructio ns DAILY (route: oral) Med Classific ation: Cardiovas cular Therapy Agents baclofen 10 mg tablet 10-15 00:00: 00 10-28 00:00 :00 No [id number] Per instruc tions Per instructio ns (route: oral) Med Classific ation: Locomotor System tramadol 50 mg tablet 10-15 00:00: 00 10-28 00:00 :00 No [id number] Per instruc tions Per instructio ns (route: oral) Med Classific ation: Analgesic , Anti-infl ammatory or Antipyret ic amoxicillin 875 mg tablet 10-13 00:00: 00 10-28 00:00 :00 No [id number] Per instruc tions Per instructio ns (route: oral) Med Classific ation: Anti-Infe ctive Agents chlorhexidi ne gluconate 0.12 % mouthwash 10-13 00:00: 00 10-28 00:00 :00 No [id number] Per instruc tions Per instructio ns (route: mucous membrane) Med Classific ation: Mouth-Thr oat-Denta l - Preparati ons cyclobenzap rine 10 mg tablet 10-09 00:00: 00 10-28 00:00 :00 No [id number] Per instruc tions Per instructio ns (route: oral) Med Classific ation: Locomotor System tadalafil 10 mg tablet 10-08 00:00: 00 10-28 00:00 :00 No [id number] MALE ERECTILE DYSFUNCTION , UNSPECIFIED Per instruc tions EVERY OTHER DAY NEEDED FOR SEXUAL ACTIVITY APPROXIMAT GONZALEZ 30 MINUTES PER 24 HOURS Per instructio ns EVERY OTHER DAY NEEDED FOR SEXUAL ACTIVITY APPROXIMAT GONZALEZ 30 MINUTES PER 24 HOURS (route: oral) Med Classific ation: Drugs to treat Erectile Dysfuncti on Ketostix strips 10-05 00:00: 00 10-28 00:00 :00 No [id number] 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 Per instruc tions AND DISCARD 1 TEST STRIP EVERY DAY NEEDED Per instructio ns AND DISCARD 1 TEST STRIP EVERY DAY NEEDED (route: miscellane ous) Med Classific ation: Medical Supplies and Durable Medical Equipment (DME) acetaminoph en 325 mg tablet 10-28 00:00: 00 Yes [id number] PAIN 2 tablet EVERY 4 HOURS 2 tablet EVERY 4 HOURS (route: oral) Med Classific ation: Analgesic , Anti-infl ammatory or Antipyret ic amlodipine 10 mg tablet 10-28 00:00: 00 Yes [id number] LOWERS BLOOD PRESSURE 1 tablet DAILY 1 tablet DAILY (route: oral) Med Classific ation: Cardiovas cular Therapy Agents atorvastati n 20 mg tablet 10-28 00:00: 00 Yes [id number] LOWERS CHOLESTEROL 1 tablet DAILY 1 tablet DAILY (route: oral) Med Classific ation: Cardiovas cular Therapy Agents cholecalcif swapna (vitamin D3) 25 mcg (1,000 unit) tablet 10-28 00:00: 00 Yes [id number] SUPPLEMENT 1 tablet DAILY 1 tablet DAILY (route: oral) Med Classific ation: Electroly te Balance-N utritiona l Products gabapentin 100 mg tablet 10-28 00:00: 00 Yes [id number] PAIN MANAGEMENT 1 tablet BEDTIME 1 tablet BEDTIME (route: oral) Med Classific ation: Central Nervous System Agents hydrochloro thiazide 12.5 mg tablet 10-28 00:00: 00 Yes [id number] FLUID RETENTION 1 tablet DAILY 1 tablet DAILY (route: oral) Med Classific ation: Cardiovas cular Therapy Agents insulin lispro (U-100) 100 unit/mL subcutaneou s pen 10-28 00:00: 00 Yes [id number] DIABETES Per instruc tions WITH MEALS Per instructio ns WITH MEALS (route: subcutaneo ) Med Classific ation: Endocrine lisinopril 40 mg tablet 10-28 00:00: 00 Yes [id number] LOWERS BLOOD PRESSURE 1 tablet DAILY 1 tablet DAILY (route: oral) Med Classific ation: Cardiovas cular Therapy Agents morphine 15 mg immediate release tablet 10-28 00:00: 00 Yes [id number] MODERATE PAIN 1 tablet EVERY 6 HOURS 1 tablet EVERY 6 HOURS (route: oral) Med Classific ation: Analgesic , Anti-infl ammatory or Antipyret ic omeprazole 20 mg capsule,del ayed release 10-28 00:00: 00 Yes [id number] GERD 1 capsule DAILY 1 capsule DAILY (route: oral) Med Classific ation: Gastroint estinal Therapy Agents prednisone 10 mg tablet 10-28 00:00: 00 Yes [id number] POLYMYALGIA 1 tablet DAILY 1 tablet DAILY (route: oral) Med Classific ation: Endocrine Tresiba FlexTouch U-100 insulin 100 unit/mL (3 mL) subcutaneou s pen 10-28 00:00: 00 Yes [id number] DIABETES 15 unit BEDTIME 15 unit BEDTIME (route: subcutaneo us) Med Classific ation: Endocrine naproxen 500 mg tablet 10-28 00:00: 00 Yes [id number] PAIN 1 tablet 2 TIMES DAILY 1 tablet 2 TIMES DAILY (route: oral) Med Classific ation: Analgesic , Anti-infl ammatory or Antipyret ic naproxen 500 mg tablet 11-18 00:00: 00 12-18 23:59 :00 No [id number] PAIN 1 tablet 2 TIMES DAILY 1 tablet 2 TIMES DAILY (route: oral) Med Classific ation: Analgesic , Anti-infl ammatory or Antipyret ic oxycodone 5 mg tablet 11-18 00:00: 00 Yes [id number] PAIN 1 tablet DAILY 1 tablet DAILY (route: oral) Med Classific ation: Analgesic , Anti-infl ammatory or Antipyret ic tramadol 50 mg tablet 12-18 00:00: 00 Yes [id number] SEVERE PAIN 1 tablet 3 TIMES DAILY [...] TO EVALUATE, OBSERVE / ASSESS, AND MONITOR, MEDICARE BILLER TO OBSERVE AND MONITOR, PROVIDE SKILLED THERAPEUTIC INTERVENTION, ACTIVITY, EDUCATION, AND TRAINING TO ADDRESS; [code = AGENCY MAY PERFORM A RESUMPTION OF CARE VISIT FOLLOWING ANY HOSPITAL ADMISSION. PT TO EVALUATE, OBSERVE / ASSESS, AND MONITOR, MEDICARE BILLER TO OBSERVE AND MONITOR, PROVIDE SKILLED THERAPEUTIC INTERVENTION, ACTIVITY, EDUCATION, AND TRAINING TO ADDRESS;] Future Scheduled Test PT/MEDICARE BILLER TO PROVIDE GAIT TRAINING FOR IMPROVED MOBILITY AND /OR TO NORMALIZE GAIT PATTERN [code = PT/MEDICARE BILLER TO PROVIDE GAIT TRAINING FOR IMPROVED MOBILITY AND /OR TO NORMALIZE GAIT PATTERN] Future Scheduled Test PT/MEDICARE BILLER TO PROVIDE STAIR TRAINING [code = PT/MEDICARE BILLER TO PROVIDE STAIR TRAINING] Future Scheduled Test NEUROMUSCU LAR RE-EDUCATION / BALANCE / POSTURAL CONTROL (PT) [code = NEUROMUSCULAR RE-EDUCATION / BALANCE / POSTURAL CONTROL (PT)] Future Scheduled Test THERAPEUTI C EXERCISES AND ESTABLISHING A HOME EXERCISE PROGRAM (PT/MEDICARE BILLER) [code = THERAPEUTIC EXERCISES AND ESTABLISHING A HOME EXERCISE PROGRAM (PT/MEDICARE BILLER)] Future Scheduled Test PT/MEDICARE BILLER TO IDENTIFY FALL RISK FACTORS; EDUCATE THE PATIENT/CAREGIVER ON WAYS TO REDUCE FALL RISK FACTORS AND ESTABLISH HOME EXERCISE PROGRAM TO MINIMIZE FALL RISK. MAY TEACH THE PATIENT FLOOR RECOVERY WHEN CLINICALLY APPROPRIATE [code = PT/MEDICARE BILLER TO IDENTIFY FALL RISK FACTORS; EDUCATE THE PATIENT/CAREGIVER ON WAYS TO REDUCE FALL RISK FACTORS AND ESTABLISH HOME EXERCISE PROGRAM TO MINIMIZE FALL RISK. MAY TEACH THE PATIENT FLOOR RECOVERY WHEN CLINICALLY APPROPRIATE] Future Scheduled Test PT/MEDICARE BILLER TO EDUCATE ON ARTHRITIS SELF-MANAGEMENT PT/MEDICARE BILLER MAY TEACH PATIENT APPLICATION OF CRYOTHERAPY/ HEAT FOR PAIN / SWELLING UP TO 20 MIN AT A TIME [code = PT/MEDICARE BILLER TO EDUCATE ON ARTHRITIS SELF-MANAGEMENT PT/MEDICARE BILLER MAY TEACH PATIENT APPLICATION OF CRYOTHERAPY/ HEAT FOR PAIN / SWELLING UP TO 20 MIN AT A TIME] Future Scheduled Test PT / MEDICARE BILLER M AY EDUCATE ON PAIN MANAGEMENT CLINICALLY INDICATED, INCLUDING NON-PHARMACOLOGICAL PAIN REDUCTION TECHNIQUES AND USE OF CRYOTHERAPY OR HEAT UP TO 20 MIN AT A TIME FOR PAIN MANAGEMENT [code = PT / MEDICARE BILLER MAY EDUCATE ON PAIN MANAGEMENT CLINICALLY INDICATED, INCLUDING NON-PHARMACOLOGICAL PAIN REDUCTION TECHNIQUES AND USE OF CRYOTHERAPY OR HEAT UP TO 20 MIN AT A TIME FOR PAIN MANAGEMENT] Future Scheduled Test PT / MEDICARE BILLER T O MONITOR FOR HYPO/HYPERGLYCEMIA AND CONDUCT ROUTINE FOOT INSPECTIONS. RECORD PATIENT REPORTED BLOOD SUGAR LEVELS AND NOTIFY PHYSICIAN AND/OR THE RN CLINICAL RUG SIZER FOR PHYSICIAN NOTIFICATION IF BLOOD SUGAR LEVELS ARE OUTSIDE ORDERED PARAMETERS. TEACH PATIENT/CAREGIVER ON DAILY FOOT INSPECTIONS [code = PT / MEDICARE BILLER TO MONITOR FOR HYPO/HYPERGLYCEMIA AND CONDUCT ROUTINE FOOT INSPECTIONS. RECORD PATIENT REPORTED BLOOD SUGAR LEVELS AND NOTIFY PHYSICIAN AND/OR THE RN CLINICAL RUG SIZER FOR PHYSICIAN NOTIFICATION IF BLOOD SUGAR LEVELS [...] End Date/Time Encounter Type Admission Type Attending [facility] Care Department Encounter ID Discharge Date Discharge Status Discharge Condition Discharge Reason Percent Goals Met 2025-02-25 00:00:00 2025-04-25 00:00:00 Outpatient RECERTIFIC PANKAJ HASSAN [facility] [id number] 0.00
--- OUTSIDE RECORDS SUMMARY | 2025-04-24 19:00 | XMS_ITS | Clinical Summary ---
Author Organization Unknown Care Team Providers Care Creping Machine Operator Name Role Phone PO PRAKASH KIRAN Unavailable Unavaila ble FECTEAU FEATURES REPORTER, PHUONG Unavailable Unavailable KOREY RN, ALLY Unavailable Unavailable KEENA PT, PANKAJ Unavailable Unavailable Payers Payer Name Policy Type Policy Number Effective Date Expira tion Date MEDICARE.[facility] [id number] Problems Condition Name Condition Details Condition Category [...] HYPERCHOLEST EROLEMIA, UNSPECIFIED Active 10-28 00:00: 00 SENIOR CARE (CURRENT) USE OF INSULIN Active 10-28 00:00: 00 PUPPET MAKER (CURRENT) USE OF SYSTEMIC STEROIDS Active 10-28 00:00: 00 PUPPET MAKER (CURRENT) USE OF OPIATE ANALGESIC Active 10-28 [...] 10-27 00:00: 00 10-28 00:00 :00 No [id number] Per instruc tions Per instructio ns (route: oral) Med Classific ation: Analgesic , Anti-infl ammatory or Antipyret ic Dexcom G6 Sensor device 10-26 00:00: 00 10-28 00:00 :00 No [id number] Unavailable Per instruc tions Per instructio ns (route: miscellane ous) Med Classific ation: Medical Supplies and Durable Medical Equipment (DME) gabapentin 100 mg capsule 10-21 00:00: 00 10-28 00:00 :00 No [id number] Per instruc tions Per instructio ns (route: oral) Med Classific ation: Central Nervous System Agents amlodipine 10 mg tablet 10-19 00:00: 00 10-28 00:00 :00 No [id number] ESSENTIAL (PRIMARY) HYPERTENSIO N Per instruc tions DAILY Per instructio ns DAILY (route: oral) Med Classific ation: Cardiovas cular Therapy Agents Carin 2nd Gen Pen Needle 32 gauge x 5/32 10-19 00:00: 00 10-28 00:00 :00 No [id number] Per instruc tions INSULIN 5 TIMES DAILY Per instructio ns INSULIN 5 TIMES DAILY (route: miscellane ous) Med Classific ation: Medical Supplies and Durable Medical Equipment (DME) lisinopril 40 mg tablet 10-19 00:00: 00 10-28 00:00 :00 No [id number] ESSENTIAL (PRIMARY) HYPERTENSIO N Per instruc tions DAILY Per instructio ns DAILY (route: oral) Med Classific ation: Cardiovas cular Therapy Agents baclofen 10 mg tablet 10-15 00:00: 00 10-28 00:00 :00 No [id number] Per instruc tions Per instructio ns (route: oral) Med Classific ation: Locomotor System tramadol 50 mg tablet 10-15 00:00: 00 10-28 00:00 :00 No [id number] Per instruc tions Per instructio ns (route: oral) Med Classific ation: Analgesic , Anti-infl ammatory or Antipyret ic amoxicillin 875 mg tablet 10-13 00:00: 00 10-28 00:00 :00 No [id number] Per instruc tions Per instructio ns (route: oral) Med Classific ation: Anti-Infe ctive Agents chlorhexidi ne gluconate 0.12 % mouthwash 10-13 00:00: 00 10-28 00:00 :00 No [id number] Per instruc tions Per instructio ns (route: mucous membrane) Med Classific ation: Mouth-Thr oat-Denta l - Preparati ons cyclobenzap rine 10 mg tablet 10-09 00:00: 00 10-28 00:00 :00 No [id number] Per instruc tions Per instructio ns (route: oral) Med Classific ation: Locomotor System tadalafil 10 mg tablet 10-08 00:00: 00 10-28 00:00 :00 No [id number] MALE ERECTILE DYSFUNCTION , UNSPECIFIED Per instruc tions EVERY OTHER DAY NEEDED FOR SEXUAL ACTIVITY APPROXIMAT GONZALEZ 30 MINUTES PER 24 HOURS Per instructio ns EVERY OTHER DAY NEEDED FOR SEXUAL ACTIVITY APPROXIMAT GONZALEZ 30 MINUTES PER 24 HOURS (route: oral) Med Classific ation: Drugs to treat Erectile Dysfuncti on Ketostix strips 10-05 00:00: 00 10-28 00:00 :00 No [id number] 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 Per instruc tions AND DISCARD 1 TEST STRIP EVERY DAY NEEDED Per instructio ns AND DISCARD 1 TEST STRIP EVERY DAY NEEDED (route: miscellane ous) Med Classific ation: Medical Supplies and Durable Medical Equipment (DME) acetaminoph en 325 mg tablet 10-28 00:00: 00 Yes [id number] PAIN 2 tablet EVERY 4 HOURS 2 tablet EVERY 4 HOURS (route: oral) Med Classific ation: Analgesic , Anti-infl ammatory or Antipyret ic amlodipine 10 mg tablet 10-28 00:00: 00 Yes [id number] LOWERS BLOOD PRESSURE 1 tablet DAILY 1 tablet DAILY (route: oral) Med Classific ation: Cardiovas cular Therapy Agents atorvastati n 20 mg tablet 10-28 00:00: 00 Yes [id number] LOWERS CHOLESTEROL 1 tablet DAILY 1 tablet DAILY (route: oral) Med Classific ation: Cardiovas cular Therapy Agents cholecalcif swapna (vitamin D3) 25 mcg (1,000 unit) tablet 10-28 00:00: 00 Yes [id number] SUPPLEMENT 1 tablet DAILY 1 tablet DAILY (route: oral) Med Classific ation: Electroly te Balance-N utritiona l Products gabapentin 100 mg tablet 10-28 00:00: 00 Yes [id number] PAIN MANAGEMENT 1 tablet BEDTIME 1 tablet BEDTIME (route: oral) Med Classific ation: Central Nervous System Agents hydrochloro thiazide 12.5 mg tablet 10-28 00:00: 00 Yes [id number] FLUID RETENTION 1 tablet DAILY 1 tablet DAILY (route: oral) Med Classific ation: Cardiovas cular Therapy Agents insulin lispro (U-100) 100 unit/mL subcutaneou s pen 10-28 00:00: 00 Yes [id number] DIABETES Per instruc tions WITH MEALS Per instructio ns WITH MEALS (route: subcutaneo ) Med Classific ation: Endocrine lisinopril 40 mg tablet 10-28 00:00: 00 Yes [id number] LOWERS BLOOD PRESSURE 1 tablet DAILY 1 tablet DAILY (route: oral) Med Classific ation: Cardiovas cular Therapy Agents morphine 15 mg immediate release tablet 10-28 00:00: 00 Yes [id number] MODERATE PAIN 1 tablet EVERY 6 HOURS 1 tablet EVERY 6 HOURS (route: oral) Med Classific ation: Analgesic , Anti-infl ammatory or Antipyret ic omeprazole 20 mg capsule,del ayed release 10-28 00:00: 00 Yes [id number] GERD 1 capsule DAILY 1 capsule DAILY (route: oral) Med Classific ation: Gastroint estinal Therapy Agents prednisone 10 mg tablet 10-28 00:00: 00 Yes [id number] POLYMYALGIA 1 tablet DAILY 1 tablet DAILY (route: oral) Med Classific ation: Endocrine Tresiba FlexTouch U-100 insulin 100 unit/mL (3 mL) subcutaneou s pen 10-28 00:00: 00 Yes [id number] DIABETES 15 unit BEDTIME 15 unit BEDTIME (route: subcutaneo us) Med Classific ation: Endocrine naproxen 500 mg tablet 10-28 00:00: 00 Yes [id number] PAIN 1 tablet 2 TIMES DAILY 1 tablet 2 TIMES DAILY (route: oral) Med Classific ation: Analgesic , Anti-infl ammatory or Antipyret ic naproxen 500 mg tablet 11-18 00:00: 00 12-18 23:59 :00 No [id number] PAIN 1 tablet 2 TIMES DAILY 1 tablet 2 TIMES DAILY (route: oral) Med Classific ation: Analgesic , Anti-infl ammatory or Antipyret ic oxycodone 5 mg tablet 11-18 00:00: 00 Yes [id number] PAIN 1 tablet DAILY 1 tablet DAILY (route: oral) Med Classific ation: Analgesic , Anti-infl ammatory or Antipyret ic tramadol 50 mg tablet 12-18 00:00: 00 Yes [id number] SEVERE PAIN 1 tablet 3 TIMES DAILY [...] TO EVALUATE, OBSERVE / ASSESS, AND MONITOR, FEATURES REPORTER TO OBSERVE AND MONITOR, PROVIDE SKILLED THERAPEUTIC INTERVENTION, ACTIVITY, EDUCATION, AND TRAINING TO ADDRESS; [code = AGENCY MAY PERFORM A RESUMPTION OF CARE VISIT FOLLOWING ANY HOSPITAL ADMISSION. PT TO EVALUATE, OBSERVE / ASSESS, AND MONITOR, FEATURES REPORTER TO OBSERVE AND MONITOR, PROVIDE SKILLED THERAPEUTIC INTERVENTION, ACTIVITY, EDUCATION, AND TRAINING TO ADDRESS;] Future Scheduled Test PT/FEATURES REPORTER TO PROVIDE GAIT TRAINING FOR IMPROVED MOBILITY AND /OR TO NORMALIZE GAIT PATTERN [code = PT/FEATURES REPORTER TO PROVIDE GAIT TRAINING FOR IMPROVED MOBILITY AND /OR TO NORMALIZE GAIT PATTERN] Future Scheduled Test PT/FEATURES REPORTER TO PROVIDE STAIR TRAINING [code = PT/FEATURES REPORTER TO PROVIDE STAIR TRAINING] Future Scheduled Test NEUROMUSCU LAR RE-EDUCATION / BALANCE / POSTURAL CONTROL (PT) [code = NEUROMUSCULAR RE-EDUCATION / BALANCE / POSTURAL CONTROL (PT)] Future Scheduled Test THERAPEUTI C EXERCISES AND ESTABLISHING A HOME EXERCISE PROGRAM (PT/FEATURES REPORTER) [code = THERAPEUTIC EXERCISES AND ESTABLISHING A HOME EXERCISE PROGRAM (PT/FEATURES REPORTER)] Future Scheduled Test PT/FEATURES REPORTER TO IDENTIFY FALL RISK FACTORS; EDUCATE THE PATIENT/CAREGIVER ON WAYS TO REDUCE FALL RISK FACTORS AND ESTABLISH HOME EXERCISE PROGRAM TO MINIMIZE FALL RISK. MAY TEACH THE PATIENT FLOOR RECOVERY WHEN CLINICALLY APPROPRIATE [code = PT/FEATURES REPORTER TO IDENTIFY FALL RISK FACTORS; EDUCATE THE PATIENT/CAREGIVER ON WAYS TO REDUCE FALL RISK FACTORS AND ESTABLISH HOME EXERCISE PROGRAM TO MINIMIZE FALL RISK. MAY TEACH THE PATIENT FLOOR RECOVERY WHEN CLINICALLY APPROPRIATE] Future Scheduled Test PT/FEATURES REPORTER TO EDUCATE ON ARTHRITIS SELF-MANAGEMENT PT/FEATURES REPORTER MAY TEACH PATIENT APPLICATION OF CRYOTHERAPY/ HEAT FOR PAIN / SWELLING UP TO 20 MIN AT A TIME [code = PT/FEATURES REPORTER TO EDUCATE ON ARTHRITIS SELF-MANAGEMENT PT/FEATURES REPORTER MAY TEACH PATIENT APPLICATION OF CRYOTHERAPY/ HEAT FOR PAIN / SWELLING UP TO 20 MIN AT A TIME] Future Scheduled Test PT / FEATURES REPORTER M AY EDUCATE ON PAIN MANAGEMENT CLINICALLY INDICATED, INCLUDING NON-PHARMACOLOGICAL PAIN REDUCTION TECHNIQUES AND USE OF CRYOTHERAPY OR HEAT UP TO 20 MIN AT A TIME FOR PAIN MANAGEMENT [code = PT / FEATURES REPORTER MAY EDUCATE ON PAIN MANAGEMENT CLINICALLY INDICATED, INCLUDING NON-PHARMACOLOGICAL PAIN REDUCTION TECHNIQUES AND USE OF CRYOTHERAPY OR HEAT UP TO 20 MIN AT A TIME FOR PAIN MANAGEMENT] Future Scheduled Test PT / FEATURES REPORTER T O MONITOR FOR HYPO/HYPERGLYCEMIA AND CONDUCT ROUTINE FOOT INSPECTIONS. RECORD PATIENT REPORTED BLOOD SUGAR LEVELS AND NOTIFY PHYSICIAN AND/OR THE RN CLINICAL SUPERVISOR SHIPPING FOR PHYSICIAN NOTIFICATION IF BLOOD SUGAR LEVELS ARE OUTSIDE ORDERED PARAMETERS. TEACH PATIENT/CAREGIVER ON DAILY FOOT INSPECTIONS [code = PT / FEATURES REPORTER TO MONITOR FOR HYPO/HYPERGLYCEMIA AND CONDUCT ROUTINE FOOT INSPECTIONS. RECORD PATIENT REPORTED BLOOD SUGAR LEVELS AND NOTIFY PHYSICIAN AND/OR THE RN CLINICAL SUPERVISOR SHIPPING FOR PHYSICIAN NOTIFICATION IF BLOOD SUGAR LEVELS [...] 00:00:00 2025-04-25 00:00:00 Outpatient RECERTIFIC PANKAJ HASSAN [facility] [id number] [id number]
--- OUTSIDE RECORDS SUMMARY | 2025-04-24 19:00 | XMS_ITS | Clinical Summary ---
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 Active 10-28 00:00: 00 SURVEYOR HELPER (CURRENT) USE OF OPIATE ANALGESIC Active 10-28 [...] 10-27 00:00: 00 10-28 00:00 :00 No [id number] Per instruc tions Per instructio ns (route: oral) Med Classific ation: Analgesic , Anti-infl ammatory or Antipyret ic Dexcom G6 Sensor device 10-26 00:00: 00 10-28 00:00 :00 No [id number] Unavailable Per instruc tions Per instructio ns (route: miscellane ous) Med Classific ation: Medical Supplies and Durable Medical Equipment (DME) gabapentin 100 mg capsule 10-21 00:00: 00 10-28 00:00 :00 No [id number] Per instruc tions Per instructio ns (route: oral) Med Classific ation: Central Nervous System Agents amlodipine 10 mg tablet 10-19 00:00: 00 10-28 00:00 :00 No [id number] ESSENTIAL (PRIMARY) HYPERTENSIO N Per instruc tions DAILY Per instructio ns DAILY (route: oral) Med Classific ation: Cardiovas cular Therapy Agents Carin 2nd Gen Pen Needle 32 gauge x 5/32 10-19 00:00: 00 10-28 00:00 :00 No [id number] Per instruc tions INSULIN 5 TIMES DAILY Per instructio ns INSULIN 5 TIMES DAILY (route: miscellane ous) Med Classific ation: Medical Supplies and Durable Medical Equipment (DME) lisinopril 40 mg tablet 10-19 00:00: 00 10-28 00:00 :00 No [id number] ESSENTIAL (PRIMARY) HYPERTENSIO N Per instruc tions DAILY Per instructio ns DAILY (route: oral) Med Classific ation: Cardiovas cular Therapy Agents baclofen 10 mg tablet 10-15 00:00: 00 10-28 00:00 :00 No [id number] Per instruc tions Per instructio ns (route: oral) Med Classific ation: Locomotor System tramadol 50 mg tablet 10-15 00:00: 00 10-28 00:00 :00 No [id number] Per instruc tions Per instructio ns (route: oral) Med Classific ation: Analgesic , Anti-infl ammatory or Antipyret ic amoxicillin 875 mg tablet 10-13 00:00: 00 10-28 00:00 :00 No [id number] Per instruc tions Per instructio ns (route: oral) Med Classific ation: Anti-Infe ctive Agents chlorhexidi ne gluconate 0.12 % mouthwash 10-13 00:00: 00 10-28 00:00 :00 No [id number] Per instruc tions Per instructio ns (route: mucous membrane) Med Classific ation: Mouth-Thr oat-Denta l - Preparati ons cyclobenzap rine 10 mg tablet 10-09 00:00: 00 10-28 00:00 :00 No [id number] Per instruc tions Per instructio ns (route: oral) Med Classific ation: Locomotor System tadalafil 10 mg tablet 10-08 00:00: 00 10-28 00:00 :00 No [id number] MALE ERECTILE DYSFUNCTION , UNSPECIFIED Per instruc tions EVERY OTHER DAY NEEDED FOR SEXUAL ACTIVITY APPROXIMAT GONZALEZ 30 MINUTES PER 24 HOURS Per instructio ns EVERY OTHER DAY NEEDED FOR SEXUAL ACTIVITY APPROXIMAT GONZALEZ 30 MINUTES PER 24 HOURS (route: oral) Med Classific ation: Drugs to treat Erectile Dysfuncti on Ketostix strips 10-05 00:00: 00 10-28 00:00 :00 No [id number] 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 Per instruc tions AND DISCARD 1 TEST STRIP EVERY DAY NEEDED Per instructio ns AND DISCARD 1 TEST STRIP EVERY DAY NEEDED (route: miscellane ous) Med Classific ation: Medical Supplies and Durable Medical Equipment (DME) acetaminoph en 325 mg tablet 10-28 00:00: 00 Yes [id number] PAIN 2 tablet EVERY 4 HOURS 2 tablet EVERY 4 HOURS (route: oral) Med Classific ation: Analgesic , Anti-infl ammatory or Antipyret ic amlodipine 10 mg tablet 10-28 00:00: 00 Yes [id number] LOWERS BLOOD PRESSURE 1 tablet DAILY 1 tablet DAILY (route: oral) Med Classific ation: Cardiovas cular Therapy Agents atorvastati n 20 mg tablet 10-28 00:00: 00 Yes [id number] LOWERS CHOLESTEROL 1 tablet DAILY 1 tablet DAILY (route: oral) Med Classific ation: Cardiovas cular Therapy Agents cholecalcif swapna (vitamin D3) 25 mcg (1,000 unit) tablet 10-28 00:00: 00 Yes [id number] SUPPLEMENT 1 tablet DAILY 1 tablet DAILY (route: oral) Med Classific ation: Electroly te Balance-N utritiona l Products gabapentin 100 mg tablet 10-28 00:00: 00 Yes [id number] PAIN MANAGEMENT 1 tablet BEDTIME 1 tablet BEDTIME (route: oral) Med Classific ation: Central Nervous System Agents hydrochloro thiazide 12.5 mg tablet 10-28 00:00: 00 Yes [id number] FLUID RETENTION 1 tablet DAILY 1 tablet DAILY (route: oral) Med Classific ation: Cardiovas cular Therapy Agents insulin lispro (U-100) 100 unit/mL subcutaneou s pen 10-28 00:00: 00 Yes [id number] DIABETES Per instruc tions WITH MEALS Per instructio ns WITH MEALS (route: subcutaneo ) Med Classific ation: Endocrine lisinopril 40 mg tablet 10-28 00:00: 00 Yes [id number] LOWERS BLOOD PRESSURE 1 tablet DAILY 1 tablet DAILY (route: oral) Med Classific ation: Cardiovas cular Therapy Agents morphine 15 mg immediate release tablet 10-28 00:00: 00 Yes [id number] MODERATE PAIN 1 tablet EVERY 6 HOURS 1 tablet EVERY 6 HOURS (route: oral) Med Classific ation: Analgesic , Anti-infl ammatory or Antipyret ic omeprazole 20 mg capsule,del ayed release 10-28 00:00: 00 Yes [id number] GERD 1 capsule DAILY 1 capsule DAILY (route: oral) Med Classific ation: Gastroint estinal Therapy Agents prednisone 10 mg tablet 10-28 00:00: 00 Yes [id number] POLYMYALGIA 1 tablet DAILY 1 tablet DAILY (route: oral) Med Classific ation: Endocrine Tresiba FlexTouch U-100 insulin 100 unit/mL (3 mL) subcutaneou s pen 10-28 00:00: 00 Yes [id number] DIABETES 15 unit BEDTIME 15 unit BEDTIME (route: subcutaneo us) Med Classific ation: Endocrine naproxen 500 mg tablet 10-28 00:00: 00 Yes [id number] PAIN 1 tablet 2 TIMES DAILY 1 tablet 2 TIMES DAILY (route: oral) Med Classific ation: Analgesic , Anti-infl ammatory or Antipyret ic naproxen 500 mg tablet 11-18 00:00: 00 12-18 23:59 :00 No [id number] PAIN 1 tablet 2 TIMES DAILY 1 tablet 2 TIMES DAILY (route: oral) Med Classific ation: Analgesic , Anti-infl ammatory or Antipyret ic oxycodone 5 mg tablet 11-18 00:00: 00 Yes [id number] PAIN 1 tablet DAILY 1 tablet DAILY (route: oral) Med Classific ation: Analgesic , Anti-infl ammatory or Antipyret ic tramadol 50 mg tablet 12-18 00:00: 00 Yes [id number] SEVERE PAIN 1 tablet 3 TIMES DAILY [...] TO EVALUATE, OBSERVE / ASSESS, AND MONITOR, LACE BURN OUT TENDER TO OBSERVE AND MONITOR, PROVIDE SKILLED THERAPEUTIC INTERVENTION, ACTIVITY, EDUCATION, AND TRAINING TO ADDRESS; [code = AGENCY MAY PERFORM A RESUMPTION OF CARE VISIT FOLLOWING ANY HOSPITAL ADMISSION. PT TO EVALUATE, OBSERVE / ASSESS, AND MONITOR, LACE BURN OUT TENDER TO OBSERVE AND MONITOR, PROVIDE SKILLED THERAPEUTIC INTERVENTION, ACTIVITY, EDUCATION, AND TRAINING TO ADDRESS;] Future Scheduled Test PT/LACE BURN OUT TENDER TO PROVIDE GAIT TRAINING FOR IMPROVED MOBILITY AND /OR TO NORMALIZE GAIT PATTERN [code = PT/LACE BURN OUT TENDER TO PROVIDE GAIT TRAINING FOR IMPROVED MOBILITY AND /OR TO NORMALIZE GAIT PATTERN] Future Scheduled Test PT/LACE BURN OUT TENDER TO PROVIDE STAIR TRAINING [code = PT/LACE BURN OUT TENDER TO PROVIDE STAIR TRAINING] Future Scheduled Test NEUROMUSCU LAR RE-EDUCATION / BALANCE / POSTURAL CONTROL (PT) [code = NEUROMUSCULAR RE-EDUCATION / BALANCE / POSTURAL CONTROL (PT)] Future Scheduled Test THERAPEUTI C EXERCISES AND ESTABLISHING A HOME EXERCISE PROGRAM (PT/LACE BURN OUT TENDER) [code = THERAPEUTIC EXERCISES AND ESTABLISHING A HOME EXERCISE PROGRAM (PT/LACE BURN OUT TENDER)] Future Scheduled Test PT/LACE BURN OUT TENDER TO IDENTIFY FALL RISK FACTORS; EDUCATE THE PATIENT/CAREGIVER ON WAYS TO REDUCE FALL RISK FACTORS AND ESTABLISH HOME EXERCISE PROGRAM TO MINIMIZE FALL RISK. MAY TEACH THE PATIENT FLOOR RECOVERY WHEN CLINICALLY APPROPRIATE [code = PT/LACE BURN OUT TENDER TO IDENTIFY FALL RISK FACTORS; EDUCATE THE PATIENT/CAREGIVER ON WAYS TO REDUCE FALL RISK FACTORS AND ESTABLISH HOME EXERCISE PROGRAM TO MINIMIZE FALL RISK. MAY TEACH THE PATIENT FLOOR RECOVERY WHEN CLINICALLY APPROPRIATE] Future Scheduled Test PT/LACE BURN OUT TENDER TO EDUCATE ON ARTHRITIS SELF-MANAGEMENT PT/LACE BURN OUT TENDER MAY TEACH PATIENT APPLICATION OF CRYOTHERAPY/ HEAT FOR PAIN / SWELLING UP TO 20 MIN AT A TIME [code = PT/LACE BURN OUT TENDER TO EDUCATE ON ARTHRITIS SELF-MANAGEMENT PT/LACE BURN OUT TENDER MAY TEACH PATIENT APPLICATION OF CRYOTHERAPY/ HEAT FOR PAIN / SWELLING UP TO 20 MIN AT A TIME] Future Scheduled Test PT / LACE BURN OUT TENDER M AY EDUCATE ON PAIN MANAGEMENT CLINICALLY INDICATED, INCLUDING NON-PHARMACOLOGICAL PAIN REDUCTION TECHNIQUES AND USE OF CRYOTHERAPY OR HEAT UP TO 20 MIN AT A TIME FOR PAIN MANAGEMENT [code = PT / LACE BURN OUT TENDER MAY EDUCATE ON PAIN MANAGEMENT CLINICALLY INDICATED, INCLUDING NON-PHARMACOLOGICAL PAIN REDUCTION TECHNIQUES AND USE OF CRYOTHERAPY OR HEAT UP TO 20 MIN AT A TIME FOR PAIN MANAGEMENT] Future Scheduled Test PT / LACE BURN OUT TENDER T O MONITOR FOR HYPO/HYPERGLYCEMIA AND CONDUCT ROUTINE FOOT INSPECTIONS. RECORD PATIENT REPORTED BLOOD SUGAR LEVELS AND NOTIFY PHYSICIAN AND/OR THE RN CLINICAL PIANO MECHANIC FOR PHYSICIAN NOTIFICATION IF BLOOD SUGAR LEVELS ARE OUTSIDE ORDERED PARAMETERS. TEACH PATIENT/CAREGIVER ON DAILY FOOT INSPECTIONS [code = PT / LACE BURN OUT TENDER TO MONITOR FOR HYPO/HYPERGLYCEMIA AND CONDUCT ROUTINE FOOT INSPECTIONS. RECORD PATIENT REPORTED BLOOD SUGAR LEVELS AND NOTIFY PHYSICIAN AND/OR THE RN CLINICAL PIANO MECHANIC FOR PHYSICIAN NOTIFICATION IF BLOOD SUGAR LEVELS [...] End Date/Time Encounter Type Admission Type Attending [facility] Facility Care Department Encounter ID Discharge Date Discharge Status Discharge Condition Discharge Reason Percent Goals Met 2025-02-25 00:00:00 2025-04-25 00:00:00 Outpatient RECERTIFIC PANKAJ HASSAN [facility] [id number] 0.00
--- OUTSIDE RECORDS SUMMARY | 2025-04-24 19:00 | XMS_ITS | Clinical Summary ---
Author Organization Unknown Care Team Providers Care Aerodynamics Professor Name Role Phone PO PRAKASH KIRAN Unavailable Unavaila ble FECTEAU DEMAND INSPECTOR, PHUONG Unavailable Unavailable KOREY RN, ALLY Unavailable Unavailable KEENA PT, PANKAJ Unavailable Unavailable Payers Payer Name Policy Type Policy Number Effective Date Expira tion Date MEDICARE.[facility] [id number] Problems Condition Name Condition Details Condition Category [...] HYPERCHOLEST EROLEMIA, UNSPECIFIED Active 10-28 00:00: 00 PRISON (CURRENT) USE OF INSULIN Active 10-28 00:00: 00 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 Active 10-28 00:00: 00 BATTERY MECHANIC (CURRENT) USE OF OPIATE ANALGESIC Active 10-28 [...] 10-27 00:00: 00 10-28 00:00 :00 No [id number] Per instruc tions Per instructio ns (route: oral) Med Classific ation: Analgesic , Anti-infl ammatory or Antipyret ic Dexcom G6 Sensor device 10-26 00:00: 00 10-28 00:00 :00 No [id number] Unavailable Per instruc tions Per instructio ns (route: miscellane ous) Med Classific ation: Medical Supplies and Durable Medical Equipment (DME) gabapentin 100 mg capsule 10-21 00:00: 00 10-28 00:00 :00 No [id number] Per instruc tions Per instructio ns (route: oral) Med Classific ation: Central Nervous System Agents amlodipine 10 mg tablet 10-19 00:00: 00 10-28 00:00 :00 No [id number] ESSENTIAL (PRIMARY) HYPERTENSIO N Per instruc tions DAILY Per instructio ns DAILY (route: oral) Med Classific ation: Cardiovas cular Therapy Agents Carin 2nd Gen Pen Needle 32 gauge x 5/32 10-19 00:00: 00 10-28 00:00 :00 No [id number] Per instruc tions INSULIN 5 TIMES DAILY Per instructio ns INSULIN 5 TIMES DAILY (route: miscellane ous) Med Classific ation: Medical Supplies and Durable Medical Equipment (DME) lisinopril 40 mg tablet 10-19 00:00: 00 10-28 00:00 :00 No [id number] ESSENTIAL (PRIMARY) HYPERTENSIO N Per instruc tions DAILY Per instructio ns DAILY (route: oral) Med Classific ation: Cardiovas cular Therapy Agents baclofen 10 mg tablet 10-15 00:00: 00 10-28 00:00 :00 No [id number] Per instruc tions Per instructio ns (route: oral) Med Classific ation: Locomotor System tramadol 50 mg tablet 10-15 00:00: 00 10-28 00:00 :00 No [id number] Per instruc tions Per instructio ns (route: oral) Med Classific ation: Analgesic , Anti-infl ammatory or Antipyret ic amoxicillin 875 mg tablet 10-13 00:00: 00 10-28 00:00 :00 No [id number] Per instruc tions Per instructio ns (route: oral) Med Classific ation: Anti-Infe ctive Agents chlorhexidi ne gluconate 0.12 % mouthwash 10-13 00:00: 00 10-28 00:00 :00 No [id number] Per instruc tions Per instructio ns (route: mucous membrane) Med Classific ation: Mouth-Thr oat-Denta l - Preparati ons cyclobenzap rine 10 mg tablet 10-09 00:00: 00 10-28 00:00 :00 No [id number] Per instruc tions Per instructio ns (route: oral) Med Classific ation: Locomotor System tadalafil 10 mg tablet 10-08 00:00: 00 10-28 00:00 :00 No [id number] MALE ERECTILE DYSFUNCTION , UNSPECIFIED Per instruc tions EVERY OTHER DAY NEEDED FOR SEXUAL ACTIVITY APPROXIMAT GONZALEZ 30 MINUTES PER 24 HOURS Per instructio ns EVERY OTHER DAY NEEDED FOR SEXUAL ACTIVITY APPROXIMAT GONZALEZ 30 MINUTES PER 24 HOURS (route: oral) Med Classific ation: Drugs to treat Erectile Dysfuncti on Ketostix strips 10-05 00:00: 00 10-28 00:00 :00 No [id number] 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 Per instruc tions AND DISCARD 1 TEST STRIP EVERY DAY NEEDED Per instructio ns AND DISCARD 1 TEST STRIP EVERY DAY NEEDED (route: miscellane ous) Med Classific ation: Medical Supplies and Durable Medical Equipment (DME) acetaminoph en 325 mg tablet 10-28 00:00: 00 Yes [id number] PAIN 2 tablet EVERY 4 HOURS 2 tablet EVERY 4 HOURS (route: oral) Med Classific ation: Analgesic , Anti-infl ammatory or Antipyret ic amlodipine 10 mg tablet 10-28 00:00: 00 Yes [id number] LOWERS BLOOD PRESSURE 1 tablet DAILY 1 tablet DAILY (route: oral) Med Classific ation: Cardiovas cular Therapy Agents atorvastati n 20 mg tablet 10-28 00:00: 00 Yes [id number] LOWERS CHOLESTEROL 1 tablet DAILY 1 tablet DAILY (route: oral) Med Classific ation: Cardiovas cular Therapy Agents cholecalcif swapna (vitamin D3) 25 mcg (1,000 unit) tablet 10-28 00:00: 00 Yes [id number] SUPPLEMENT 1 tablet DAILY 1 tablet DAILY (route: oral) Med Classific ation: Electroly te Balance-N utritiona l Products gabapentin 100 mg tablet 10-28 00:00: 00 Yes [id number] PAIN MANAGEMENT 1 tablet BEDTIME 1 tablet BEDTIME (route: oral) Med Classific ation: Central Nervous System Agents hydrochloro thiazide 12.5 mg tablet 10-28 00:00: 00 Yes [id number] FLUID RETENTION 1 tablet DAILY 1 tablet DAILY (route: oral) Med Classific ation: Cardiovas cular Therapy Agents insulin lispro (U-100) 100 unit/mL subcutaneou s pen 10-28 00:00: 00 Yes [id number] DIABETES Per instruc tions WITH MEALS Per instructio ns WITH MEALS (route: subcutaneo ) Med Classific ation: Endocrine lisinopril 40 mg tablet 10-28 00:00: 00 Yes [id number] LOWERS BLOOD PRESSURE 1 tablet DAILY 1 tablet DAILY (route: oral) Med Classific ation: Cardiovas cular Therapy Agents morphine 15 mg immediate release tablet 10-28 00:00: 00 Yes [id number] MODERATE PAIN 1 tablet EVERY 6 HOURS 1 tablet EVERY 6 HOURS (route: oral) Med Classific ation: Analgesic , Anti-infl ammatory or Antipyret ic omeprazole 20 mg capsule,del ayed release 10-28 00:00: 00 Yes [id number] GERD 1 capsule DAILY 1 capsule DAILY (route: oral) Med Classific ation: Gastroint estinal Therapy Agents prednisone 10 mg tablet 10-28 00:00: 00 Yes [id number] POLYMYALGIA 1 tablet DAILY 1 tablet DAILY (route: oral) Med Classific ation: Endocrine Tresiba FlexTouch U-100 insulin 100 unit/mL (3 mL) subcutaneou s pen 10-28 00:00: 00 Yes [id number] DIABETES 15 unit BEDTIME 15 unit BEDTIME (route: subcutaneo us) Med Classific ation: Endocrine naproxen 500 mg tablet 10-28 00:00: 00 Yes [id number] PAIN 1 tablet 2 TIMES DAILY 1 tablet 2 TIMES DAILY (route: oral) Med Classific ation: Analgesic , Anti-infl ammatory or Antipyret ic naproxen 500 mg tablet 11-18 00:00: 00 12-18 23:59 :00 No [id number] PAIN 1 tablet 2 TIMES DAILY 1 tablet 2 TIMES DAILY (route: oral) Med Classific ation: Analgesic , Anti-infl ammatory or Antipyret ic oxycodone 5 mg tablet 11-18 00:00: 00 Yes [id number] PAIN 1 tablet DAILY 1 tablet DAILY (route: oral) Med Classific ation: Analgesic , Anti-infl ammatory or Antipyret ic tramadol 50 mg tablet 12-18 00:00: 00 Yes [id number] SEVERE PAIN 1 tablet 3 TIMES DAILY [...] TO EVALUATE, OBSERVE / ASSESS, AND MONITOR, DEMAND INSPECTOR TO OBSERVE AND MONITOR, PROVIDE SKILLED THERAPEUTIC INTERVENTION, ACTIVITY, EDUCATION, AND TRAINING TO ADDRESS; [code = AGENCY MAY PERFORM A RESUMPTION OF CARE VISIT FOLLOWING ANY HOSPITAL ADMISSION. PT TO EVALUATE, OBSERVE / ASSESS, AND MONITOR, DEMAND INSPECTOR TO OBSERVE AND MONITOR, PROVIDE SKILLED THERAPEUTIC INTERVENTION, ACTIVITY, EDUCATION, AND TRAINING TO ADDRESS;] Future Scheduled Test PT/DEMAND INSPECTOR TO PROVIDE GAIT TRAINING FOR IMPROVED MOBILITY AND /OR TO NORMALIZE GAIT PATTERN [code = PT/DEMAND INSPECTOR TO PROVIDE GAIT TRAINING FOR IMPROVED MOBILITY AND /OR TO NORMALIZE GAIT PATTERN] Future Scheduled Test PT/DEMAND INSPECTOR TO PROVIDE STAIR TRAINING [code = PT/DEMAND INSPECTOR TO PROVIDE STAIR TRAINING] Future Scheduled Test NEUROMUSCU LAR RE-EDUCATION / BALANCE / POSTURAL CONTROL (PT) [code = NEUROMUSCULAR RE-EDUCATION / BALANCE / POSTURAL CONTROL (PT)] Future Scheduled Test THERAPEUTI C EXERCISES AND ESTABLISHING A HOME EXERCISE PROGRAM (PT/DEMAND INSPECTOR) [code = THERAPEUTIC EXERCISES AND ESTABLISHING A HOME EXERCISE PROGRAM (PT/DEMAND INSPECTOR)] Future Scheduled Test PT/DEMAND INSPECTOR TO IDENTIFY FALL RISK FACTORS; EDUCATE THE PATIENT/CAREGIVER ON WAYS TO REDUCE FALL RISK FACTORS AND ESTABLISH HOME EXERCISE PROGRAM TO MINIMIZE FALL RISK. MAY TEACH THE PATIENT FLOOR RECOVERY WHEN CLINICALLY APPROPRIATE [code = PT/DEMAND INSPECTOR TO IDENTIFY FALL RISK FACTORS; EDUCATE THE PATIENT/CAREGIVER ON WAYS TO REDUCE FALL RISK FACTORS AND ESTABLISH HOME EXERCISE PROGRAM TO MINIMIZE FALL RISK. MAY TEACH THE PATIENT FLOOR RECOVERY WHEN CLINICALLY APPROPRIATE] Future Scheduled Test PT/DEMAND INSPECTOR TO EDUCATE ON ARTHRITIS SELF-MANAGEMENT PT/DEMAND INSPECTOR MAY TEACH PATIENT APPLICATION OF CRYOTHERAPY/ HEAT FOR PAIN / SWELLING UP TO 20 MIN AT A TIME [code = PT/DEMAND INSPECTOR TO EDUCATE ON ARTHRITIS SELF-MANAGEMENT PT/DEMAND INSPECTOR MAY TEACH PATIENT APPLICATION OF CRYOTHERAPY/ HEAT FOR PAIN / SWELLING UP TO 20 MIN AT A TIME] Future Scheduled Test PT / DEMAND INSPECTOR M AY EDUCATE ON PAIN MANAGEMENT CLINICALLY INDICATED, INCLUDING NON-PHARMACOLOGICAL PAIN REDUCTION TECHNIQUES AND USE OF CRYOTHERAPY OR HEAT UP TO 20 MIN AT A TIME FOR PAIN MANAGEMENT [code = PT / DEMAND INSPECTOR MAY EDUCATE ON PAIN MANAGEMENT CLINICALLY INDICATED, INCLUDING NON-PHARMACOLOGICAL PAIN REDUCTION TECHNIQUES AND USE OF CRYOTHERAPY OR HEAT UP TO 20 MIN AT A TIME FOR PAIN MANAGEMENT] Future Scheduled Test PT / DEMAND INSPECTOR T O MONITOR FOR HYPO/HYPERGLYCEMIA AND CONDUCT ROUTINE FOOT INSPECTIONS. RECORD PATIENT REPORTED BLOOD SUGAR LEVELS AND NOTIFY PHYSICIAN AND/OR THE RN CLINICAL HAIRSPRING I INSPECTOR FOR PHYSICIAN NOTIFICATION IF BLOOD SUGAR LEVELS ARE OUTSIDE ORDERED PARAMETERS. TEACH PATIENT/CAREGIVER ON DAILY FOOT INSPECTIONS [code = PT / DEMAND INSPECTOR TO MONITOR FOR HYPO/HYPERGLYCEMIA AND CONDUCT ROUTINE FOOT INSPECTIONS. RECORD PATIENT REPORTED BLOOD SUGAR LEVELS AND NOTIFY PHYSICIAN AND/OR THE RN CLINICAL HAIRSPRING I INSPECTOR FOR PHYSICIAN NOTIFICATION IF BLOOD SUGAR LEVELS [...] End Date/Time Encounter Type Admission Type Attending [facility] Facility Care Department Encounter ID Discharge Date Discharge Status Discharge Condition Discharge Reason Percent Goals Met 2025-02-25 00:00:00 2025-04-25 00:00:00 Outpatient RECERTIFIC PANKAJ HASSAN [facility] [id number] 0.00
--- OUTSIDE RECORDS SUMMARY | 2025-04-24 19:00 | XMS_ITS | Clinical Summary ---
Author Organization Unknown Care Team Providers Care Warehouse Lead Name Role Phone PO PRAKASH KIRAN Unavailable Unavaila ble FECTEAU FOOD SPECIALIST, PHUONG Unavailable Unavailable KOREY RN, ALLY Unavailable Unavailable KEENA PT, PANKAJ Unavailable Unavailable Payers Payer Name Policy Type Policy Number Effective Date Expira tion Date MEDICARE.[facility] [id number] Problems Condition Name Condition Details Condition Category [...] HYPERCHOLEST EROLEMIA, UNSPECIFIED Active 10-28 00:00: 00 [facility] HOME (CURRENT) USE OF INSULIN Active 10-28 00:00: 00 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 Active 10-28 00:00: 00 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) USE OF OPIATE ANALGESIC Active 10-28 [...] 10-27 00:00: 00 10-28 00:00 :00 No [id number] Per instruc tions Per instructio ns (route: oral) Med Classific ation: Analgesic , Anti-infl ammatory or Antipyret ic Dexcom G6 Sensor device 10-26 00:00: 00 10-28 00:00 :00 No [id number] Unavailable Per instruc tions Per instructio ns (route: miscellane ous) Med Classific ation: Medical Supplies and Durable Medical Equipment (DME) gabapentin 100 mg capsule 10-21 00:00: 00 10-28 00:00 :00 No [id number] Per instruc tions Per instructio ns (route: oral) Med Classific ation: Central Nervous System Agents amlodipine 10 mg tablet 10-19 00:00: 00 10-28 00:00 :00 No [id number] ESSENTIAL (PRIMARY) HYPERTENSIO N Per instruc tions DAILY Per instructio ns DAILY (route: oral) Med Classific ation: Cardiovas cular Therapy Agents Carin 2nd Gen Pen Needle 32 gauge x 5/32 10-19 00:00: 00 10-28 00:00 :00 No [id number] Per instruc tions INSULIN 5 TIMES DAILY Per instructio ns INSULIN 5 TIMES DAILY (route: miscellane ous) Med Classific ation: Medical Supplies and Durable Medical Equipment (DME) lisinopril 40 mg tablet 10-19 00:00: 00 10-28 00:00 :00 No [id number] ESSENTIAL (PRIMARY) HYPERTENSIO N Per instruc tions DAILY Per instructio ns DAILY (route: oral) Med Classific ation: Cardiovas cular Therapy Agents baclofen 10 mg tablet 10-15 00:00: 00 10-28 00:00 :00 No [id number] Per instruc tions Per instructio ns (route: oral) Med Classific ation: Locomotor System tramadol 50 mg tablet 10-15 00:00: 00 10-28 00:00 :00 No [id number] Per instruc tions Per instructio ns (route: oral) Med Classific ation: Analgesic , Anti-infl ammatory or Antipyret ic amoxicillin 875 mg tablet 10-13 00:00: 00 10-28 00:00 :00 No [id number] Per instruc tions Per instructio ns (route: oral) Med Classific ation: Anti-Infe ctive Agents chlorhexidi ne gluconate 0.12 % mouthwash 10-13 00:00: 00 10-28 00:00 :00 No [id number] Per instruc tions Per instructio ns (route: mucous membrane) Med Classific ation: Mouth-Thr oat-Denta l - Preparati ons cyclobenzap rine 10 mg tablet 10-09 00:00: 00 10-28 00:00 :00 No [id number] Per instruc tions Per instructio ns (route: oral) Med Classific ation: Locomotor System tadalafil 10 mg tablet 10-08 00:00: 00 10-28 00:00 :00 No [id number] MALE ERECTILE DYSFUNCTION , UNSPECIFIED Per instruc tions EVERY OTHER DAY NEEDED FOR SEXUAL ACTIVITY APPROXIMAT GONZALEZ 30 MINUTES PER 24 HOURS Per instructio ns EVERY OTHER DAY NEEDED FOR SEXUAL ACTIVITY APPROXIMAT GONZALEZ 30 MINUTES PER 24 HOURS (route: oral) Med Classific ation: Drugs to treat Erectile Dysfuncti on Ketostix strips 10-05 00:00: 00 10-28 00:00 :00 No [id number] 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 Per instruc tions AND DISCARD 1 TEST STRIP EVERY DAY NEEDED Per instructio ns AND DISCARD 1 TEST STRIP EVERY DAY NEEDED (route: miscellane ous) Med Classific ation: Medical Supplies and Durable Medical Equipment (DME) acetaminoph en 325 mg tablet 10-28 00:00: 00 Yes [id number] PAIN 2 tablet EVERY 4 HOURS 2 tablet EVERY 4 HOURS (route: oral) Med Classific ation: Analgesic , Anti-infl ammatory or Antipyret ic amlodipine 10 mg tablet 10-28 00:00: 00 Yes [id number] LOWERS BLOOD PRESSURE 1 tablet DAILY 1 tablet DAILY (route: oral) Med Classific ation: Cardiovas cular Therapy Agents atorvastati n 20 mg tablet 10-28 00:00: 00 Yes [id number] LOWERS CHOLESTEROL 1 tablet DAILY 1 tablet DAILY (route: oral) Med Classific ation: Cardiovas cular Therapy Agents cholecalcif swapna (vitamin D3) 25 mcg (1,000 unit) tablet 10-28 00:00: 00 Yes [id number] SUPPLEMENT 1 tablet DAILY 1 tablet DAILY (route: oral) Med Classific ation: Electroly te Balance-N utritiona l Products gabapentin 100 mg tablet 10-28 00:00: 00 Yes [id number] PAIN MANAGEMENT 1 tablet BEDTIME 1 tablet BEDTIME (route: oral) Med Classific ation: Central Nervous System Agents hydrochloro thiazide 12.5 mg tablet 10-28 00:00: 00 Yes [id number] FLUID RETENTION 1 tablet DAILY 1 tablet DAILY (route: oral) Med Classific ation: Cardiovas cular Therapy Agents insulin lispro (U-100) 100 unit/mL subcutaneou s pen 10-28 00:00: 00 Yes [id number] DIABETES Per instruc tions WITH MEALS Per instructio ns WITH MEALS (route: subcutaneo ) Med Classific ation: Endocrine lisinopril 40 mg tablet 10-28 00:00: 00 Yes [id number] LOWERS BLOOD PRESSURE 1 tablet DAILY 1 tablet DAILY (route: oral) Med Classific ation: Cardiovas cular Therapy Agents morphine 15 mg immediate release tablet 10-28 00:00: 00 Yes [id number] MODERATE PAIN 1 tablet EVERY 6 HOURS 1 tablet EVERY 6 HOURS (route: oral) Med Classific ation: Analgesic , Anti-infl ammatory or Antipyret ic omeprazole 20 mg capsule,del ayed release 10-28 00:00: 00 Yes [id number] GERD 1 capsule DAILY 1 capsule DAILY (route: oral) Med Classific ation: Gastroint estinal Therapy Agents prednisone 10 mg tablet 10-28 00:00: 00 Yes [id number] POLYMYALGIA 1 tablet DAILY 1 tablet DAILY (route: oral) Med Classific ation: Endocrine Tresiba FlexTouch U-100 insulin 100 unit/mL (3 mL) subcutaneou s pen 10-28 00:00: 00 Yes [id number] DIABETES 15 unit BEDTIME 15 unit BEDTIME (route: subcutaneo us) Med Classific ation: Endocrine naproxen 500 mg tablet 10-28 00:00: 00 Yes [id number] PAIN 1 tablet 2 TIMES DAILY 1 tablet 2 TIMES DAILY (route: oral) Med Classific ation: Analgesic , Anti-infl ammatory or Antipyret ic naproxen 500 mg tablet 11-18 00:00: 00 12-18 23:59 :00 No [id number] PAIN 1 tablet 2 TIMES DAILY 1 tablet 2 TIMES DAILY (route: oral) Med Classific ation: Analgesic , Anti-infl ammatory or Antipyret ic oxycodone 5 mg tablet 11-18 00:00: 00 Yes [id number] PAIN 1 tablet DAILY 1 tablet DAILY (route: oral) Med Classific ation: Analgesic , Anti-infl ammatory or Antipyret ic tramadol 50 mg tablet 12-18 00:00: 00 Yes [id number] SEVERE PAIN 1 tablet 3 TIMES DAILY [...] TO EVALUATE, OBSERVE / ASSESS, AND MONITOR, FOOD SPECIALIST TO OBSERVE AND MONITOR, PROVIDE SKILLED THERAPEUTIC INTERVENTION, ACTIVITY, EDUCATION, AND TRAINING TO ADDRESS; [code = AGENCY MAY PERFORM A RESUMPTION OF CARE VISIT FOLLOWING ANY HOSPITAL ADMISSION. PT TO EVALUATE, OBSERVE / ASSESS, AND MONITOR, FOOD SPECIALIST TO OBSERVE AND MONITOR, PROVIDE SKILLED THERAPEUTIC INTERVENTION, ACTIVITY, EDUCATION, AND TRAINING TO ADDRESS;] Future Scheduled Test PT/FOOD SPECIALIST TO PROVIDE GAIT TRAINING FOR IMPROVED MOBILITY AND /OR TO NORMALIZE GAIT PATTERN [code = PT/FOOD SPECIALIST TO PROVIDE GAIT TRAINING FOR IMPROVED MOBILITY AND /OR TO NORMALIZE GAIT PATTERN] Future Scheduled Test PT/FOOD SPECIALIST TO PROVIDE STAIR TRAINING [code = PT/FOOD SPECIALIST TO PROVIDE STAIR TRAINING] Future Scheduled Test NEUROMUSCU LAR RE-EDUCATION / BALANCE / POSTURAL CONTROL (PT) [code = NEUROMUSCULAR RE-EDUCATION / BALANCE / POSTURAL CONTROL (PT)] Future Scheduled Test THERAPEUTI C EXERCISES AND ESTABLISHING A HOME EXERCISE PROGRAM (PT/FOOD SPECIALIST) [code = THERAPEUTIC EXERCISES AND ESTABLISHING A HOME EXERCISE PROGRAM (PT/FOOD SPECIALIST)] Future Scheduled Test PT/FOOD SPECIALIST TO IDENTIFY FALL RISK FACTORS; EDUCATE THE PATIENT/CAREGIVER ON WAYS TO REDUCE FALL RISK FACTORS AND ESTABLISH HOME EXERCISE PROGRAM TO MINIMIZE FALL RISK. MAY TEACH THE PATIENT FLOOR RECOVERY WHEN CLINICALLY APPROPRIATE [code = PT/FOOD SPECIALIST TO IDENTIFY FALL RISK FACTORS; EDUCATE THE PATIENT/CAREGIVER ON WAYS TO REDUCE FALL RISK FACTORS AND ESTABLISH HOME EXERCISE PROGRAM TO MINIMIZE FALL RISK. MAY TEACH THE PATIENT FLOOR RECOVERY WHEN CLINICALLY APPROPRIATE] Future Scheduled Test PT/FOOD SPECIALIST TO EDUCATE ON ARTHRITIS SELF-MANAGEMENT PT/FOOD SPECIALIST MAY TEACH PATIENT APPLICATION OF CRYOTHERAPY/ HEAT FOR PAIN / SWELLING UP TO 20 MIN AT A TIME [code = PT/FOOD SPECIALIST TO EDUCATE ON ARTHRITIS SELF-MANAGEMENT PT/FOOD SPECIALIST MAY TEACH PATIENT APPLICATION OF CRYOTHERAPY/ HEAT FOR PAIN / SWELLING UP TO 20 MIN AT A TIME] Future Scheduled Test PT / FOOD SPECIALIST M AY EDUCATE ON PAIN MANAGEMENT CLINICALLY INDICATED, INCLUDING NON-PHARMACOLOGICAL PAIN REDUCTION TECHNIQUES AND USE OF CRYOTHERAPY OR HEAT UP TO 20 MIN AT A TIME FOR PAIN MANAGEMENT [code = PT / FOOD SPECIALIST MAY EDUCATE ON PAIN MANAGEMENT CLINICALLY INDICATED, INCLUDING NON-PHARMACOLOGICAL PAIN REDUCTION TECHNIQUES AND USE OF CRYOTHERAPY OR HEAT UP TO 20 MIN AT A TIME FOR PAIN MANAGEMENT] Future Scheduled Test PT / FOOD SPECIALIST T O MONITOR FOR HYPO/HYPERGLYCEMIA AND CONDUCT ROUTINE FOOT INSPECTIONS. RECORD PATIENT REPORTED BLOOD SUGAR LEVELS AND NOTIFY PHYSICIAN AND/OR THE RN CLINICAL TIMBER TREATING TANK OPERATOR FOR PHYSICIAN NOTIFICATION IF BLOOD SUGAR LEVELS ARE OUTSIDE ORDERED PARAMETERS. TEACH PATIENT/CAREGIVER ON DAILY FOOT INSPECTIONS [code = PT / FOOD SPECIALIST TO MONITOR FOR HYPO/HYPERGLYCEMIA AND CONDUCT ROUTINE FOOT INSPECTIONS. RECORD PATIENT REPORTED BLOOD SUGAR LEVELS AND NOTIFY PHYSICIAN AND/OR THE RN CLINICAL TIMBER TREATING TANK OPERATOR FOR PHYSICIAN NOTIFICATION IF BLOOD SUGAR [...] 00:00:00 2025-04-25 00:00:00 Outpatient RECERTIFIC PANKAJ [facility]ASS[facility] [id number] 0.00
--- OUTSIDE RECORDS SUMMARY | 2025-04-24 19:00 | XMS_ITS | Clinical Summary ---
Author Organization Unknown Care Team Providers Care Vocational Psychologist Name Role Phone PO PRAKASH KIRAN Unavailable Unavaila ble FECTEAU SPINDLE SANDER, PHUONG Unavailable Unavailable KOREY RN, ALLY Unavailable Unavailable KEENA PT, PANKAJ Unavailable Unavailable Payers Payer Name Policy Type Policy Number Effective Date Expira tion Date MEDICARE.[facility] [id number] Problems Condition Name Condition Details Condition Category [...] HYPERCHOLEST EROLEMIA, UNSPECIFIED Active 10-28 00:00: 00 [facility] (CURRENT) USE OF INSULIN Active 10-28 00:00: 00 MEDICATION AIDE (CURRENT) USE OF SYSTEMIC STEROIDS Active 10-28 00:00: 00 MEDICATION AIDE (CURRENT) USE OF OPIATE ANALGESIC Active 10-28 [...] 10-27 00:00: 00 10-28 00:00 :00 No [id number] Per instruc tions Per instructio ns (route: oral) Med Classific ation: Analgesic , Anti-infl ammatory or Antipyret ic Dexcom G6 Sensor device 10-26 00:00: 00 10-28 00:00 :00 No [id number] Unavailable Per instruc tions Per instructio ns (route: miscellane ous) Med Classific ation: Medical Supplies and Durable Medical Equipment (DME) gabapentin 100 mg capsule 10-21 00:00: 00 10-28 00:00 :00 No [id number] Per instruc tions Per instructio ns (route: oral) Med Classific ation: Central Nervous System Agents amlodipine 10 mg tablet 10-19 00:00: 00 10-28 00:00 :00 No [id number] ESSENTIAL (PRIMARY) HYPERTENSIO N Per instruc tions DAILY Per instructio ns DAILY (route: oral) Med Classific ation: Cardiovas cular Therapy Agents Carin 2nd Gen Pen Needle 32 gauge x 5/32 10-19 00:00: 00 10-28 00:00 :00 No [id number] Per instruc tions INSULIN 5 TIMES DAILY Per instructio ns INSULIN 5 TIMES DAILY (route: miscellane ous) Med Classific ation: Medical Supplies and Durable Medical Equipment (DME) lisinopril 40 mg tablet 10-19 00:00: 00 10-28 00:00 :00 No [id number] ESSENTIAL (PRIMARY) HYPERTENSIO N Per instruc tions DAILY Per instructio ns DAILY (route: oral) Med Classific ation: Cardiovas cular Therapy Agents baclofen 10 mg tablet 10-15 00:00: 00 10-28 00:00 :00 No [id number] Per instruc tions Per instructio ns (route: oral) Med Classific ation: Locomotor System tramadol 50 mg tablet 10-15 00:00: 00 10-28 00:00 :00 No [id number] Per instruc tions Per instructio ns (route: oral) Med Classific ation: Analgesic , Anti-infl ammatory or Antipyret ic amoxicillin 875 mg tablet 10-13 00:00: 00 10-28 00:00 :00 No [id number] Per instruc tions Per instructio ns (route: oral) Med Classific ation: Anti-Infe ctive Agents chlorhexidi ne gluconate 0.12 % mouthwash 10-13 00:00: 00 10-28 00:00 :00 No [id number] Per instruc tions Per instructio ns (route: mucous membrane) Med Classific ation: Mouth-Thr oat-Denta l - Preparati ons cyclobenzap rine 10 mg tablet 10-09 00:00: 00 10-28 00:00 :00 No [id number] Per instruc tions Per instructio ns (route: oral) Med Classific ation: Locomotor System tadalafil 10 mg tablet 10-08 00:00: 00 10-28 00:00 :00 No [id number] MALE ERECTILE DYSFUNCTION , UNSPECIFIED Per instruc tions EVERY OTHER DAY NEEDED FOR SEXUAL ACTIVITY APPROXIMAT GONZALEZ 30 MINUTES PER 24 HOURS Per instructio ns EVERY OTHER DAY NEEDED FOR SEXUAL ACTIVITY APPROXIMAT GONZALEZ 30 MINUTES PER 24 HOURS (route: oral) Med Classific ation: Drugs to treat Erectile Dysfuncti on Ketostix strips 10-05 00:00: 00 10-28 00:00 :00 No [id number] 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 Per instruc tions AND DISCARD 1 TEST STRIP EVERY DAY NEEDED Per instructio ns AND DISCARD 1 TEST STRIP EVERY DAY NEEDED (route: miscellane ous) Med Classific ation: Medical Supplies and Durable Medical Equipment (DME) acetaminoph en 325 mg tablet 10-28 00:00: 00 Yes [id number] PAIN 2 tablet EVERY 4 HOURS 2 tablet EVERY 4 HOURS (route: oral) Med Classific ation: Analgesic , Anti-infl ammatory or Antipyret ic amlodipine 10 mg tablet 10-28 00:00: 00 Yes [id number] LOWERS BLOOD PRESSURE 1 tablet DAILY 1 tablet DAILY (route: oral) Med Classific ation: Cardiovas cular Therapy Agents atorvastati n 20 mg tablet 10-28 00:00: 00 Yes [id number] LOWERS CHOLESTEROL 1 tablet DAILY 1 tablet DAILY (route: oral) Med Classific ation: Cardiovas cular Therapy Agents cholecalcif swapna (vitamin D3) 25 mcg (1,000 unit) tablet 10-28 00:00: 00 Yes [id number] SUPPLEMENT 1 tablet DAILY 1 tablet DAILY (route: oral) Med Classific ation: Electroly te Balance-N utritiona l Products gabapentin 100 mg tablet 10-28 00:00: 00 Yes [id number] PAIN MANAGEMENT 1 tablet BEDTIME 1 tablet BEDTIME (route: oral) Med Classific ation: Central Nervous System Agents hydrochloro thiazide 12.5 mg tablet 10-28 00:00: 00 Yes [id number] FLUID RETENTION 1 tablet DAILY 1 tablet DAILY (route: oral) Med Classific ation: Cardiovas cular Therapy Agents insulin lispro (U-100) 100 unit/mL subcutaneou s pen 10-28 00:00: 00 Yes [id number] DIABETES Per instruc tions WITH MEALS Per instructio ns WITH MEALS (route: subcutaneo ) Med Classific ation: Endocrine lisinopril 40 mg tablet 10-28 00:00: 00 Yes [id number] LOWERS BLOOD PRESSURE 1 tablet DAILY 1 tablet DAILY (route: oral) Med Classific ation: Cardiovas cular Therapy Agents morphine 15 mg immediate release tablet 10-28 00:00: 00 Yes [id number] MODERATE PAIN 1 tablet EVERY 6 HOURS 1 tablet EVERY 6 HOURS (route: oral) Med Classific ation: Analgesic , Anti-infl ammatory or Antipyret ic omeprazole 20 mg capsule,del ayed release 10-28 00:00: 00 Yes [id number] GERD 1 capsule DAILY 1 capsule DAILY (route: oral) Med Classific ation: Gastroint estinal Therapy Agents prednisone 10 mg tablet 10-28 00:00: 00 Yes [id number] POLYMYALGIA 1 tablet DAILY 1 tablet DAILY (route: oral) Med Classific ation: Endocrine Tresiba FlexTouch U-100 insulin 100 unit/mL (3 mL) subcutaneou s pen 10-28 00:00: 00 Yes [id number] DIABETES 15 unit BEDTIME 15 unit BEDTIME (route: subcutaneo us) Med Classific ation: Endocrine naproxen 500 mg tablet 10-28 00:00: 00 Yes [id number] PAIN 1 tablet 2 TIMES DAILY 1 tablet 2 TIMES DAILY (route: oral) Med Classific ation: Analgesic , Anti-infl ammatory or Antipyret ic naproxen 500 mg tablet 11-18 00:00: 00 12-18 23:59 :00 No [id number] PAIN 1 tablet 2 TIMES DAILY 1 tablet 2 TIMES DAILY (route: oral) Med Classific ation: Analgesic , Anti-infl ammatory or Antipyret ic oxycodone 5 mg tablet 11-18 00:00: 00 Yes [id number] PAIN 1 tablet DAILY 1 tablet DAILY (route: oral) Med Classific ation: Analgesic , Anti-infl ammatory or Antipyret ic tramadol 50 mg tablet 12-18 00:00: 00 Yes [id number] SEVERE PAIN 1 tablet 3 TIMES DAILY [...] TO EVALUATE, OBSERVE / ASSESS, AND MONITOR, SPINDLE SANDER TO OBSERVE AND MONITOR, PROVIDE SKILLED THERAPEUTIC INTERVENTION, ACTIVITY, EDUCATION, AND TRAINING TO ADDRESS; [code = AGENCY MAY PERFORM A RESUMPTION OF CARE VISIT FOLLOWING ANY HOSPITAL ADMISSION. PT TO EVALUATE, OBSERVE / ASSESS, AND MONITOR, SPINDLE SANDER TO OBSERVE AND MONITOR, PROVIDE SKILLED THERAPEUTIC INTERVENTION, ACTIVITY, EDUCATION, AND TRAINING TO ADDRESS;] Future Scheduled Test PT/SPINDLE SANDER TO PROVIDE GAIT TRAINING FOR IMPROVED MOBILITY AND /OR TO NORMALIZE GAIT PATTERN [code = PT/SPINDLE SANDER TO PROVIDE GAIT TRAINING FOR IMPROVED MOBILITY AND /OR TO NORMALIZE GAIT PATTERN] Future Scheduled Test PT/SPINDLE SANDER TO PROVIDE STAIR TRAINING [code = PT/SPINDLE SANDER TO PROVIDE STAIR TRAINING] Future Scheduled Test NEUROMUSCU LAR RE-EDUCATION / BALANCE / POSTURAL CONTROL (PT) [code = NEUROMUSCULAR RE-EDUCATION / BALANCE / POSTURAL CONTROL (PT)] Future Scheduled Test THERAPEUTI C EXERCISES AND ESTABLISHING A HOME EXERCISE PROGRAM (PT/SPINDLE SANDER) [code = THERAPEUTIC EXERCISES AND ESTABLISHING A HOME EXERCISE PROGRAM (PT/SPINDLE SANDER)] Future Scheduled Test PT/SPINDLE SANDER TO IDENTIFY FALL RISK FACTORS; EDUCATE THE PATIENT/CAREGIVER ON WAYS TO REDUCE FALL RISK FACTORS AND ESTABLISH HOME EXERCISE PROGRAM TO MINIMIZE FALL RISK. MAY TEACH THE PATIENT FLOOR RECOVERY WHEN CLINICALLY APPROPRIATE [code = PT/SPINDLE SANDER TO IDENTIFY FALL RISK FACTORS; EDUCATE THE PATIENT/CAREGIVER ON WAYS TO REDUCE FALL RISK FACTORS AND ESTABLISH HOME EXERCISE PROGRAM TO MINIMIZE FALL RISK. MAY TEACH THE PATIENT FLOOR RECOVERY WHEN CLINICALLY APPROPRIATE] Future Scheduled Test PT/SPINDLE SANDER TO EDUCATE ON ARTHRITIS SELF-MANAGEMENT PT/SPINDLE SANDER MAY TEACH PATIENT APPLICATION OF CRYOTHERAPY/ HEAT FOR PAIN / SWELLING UP TO 20 MIN AT A TIME [code = PT/SPINDLE SANDER TO EDUCATE ON ARTHRITIS SELF-MANAGEMENT PT/SPINDLE SANDER MAY TEACH PATIENT APPLICATION OF CRYOTHERAPY/ HEAT FOR PAIN / SWELLING UP TO 20 MIN AT A TIME] Future Scheduled Test PT / SPINDLE SANDER M AY EDUCATE ON PAIN MANAGEMENT CLINICALLY INDICATED, INCLUDING NON-PHARMACOLOGICAL PAIN REDUCTION TECHNIQUES AND USE OF CRYOTHERAPY OR HEAT UP TO 20 MIN AT A TIME FOR PAIN MANAGEMENT [code = PT / SPINDLE SANDER MAY EDUCATE ON PAIN MANAGEMENT CLINICALLY INDICATED, INCLUDING NON-PHARMACOLOGICAL PAIN REDUCTION TECHNIQUES AND USE OF CRYOTHERAPY OR HEAT UP TO 20 MIN AT A TIME FOR PAIN MANAGEMENT] Future Scheduled Test PT / SPINDLE SANDER T O MONITOR FOR HYPO/HYPERGLYCEMIA AND CONDUCT ROUTINE FOOT INSPECTIONS. RECORD PATIENT REPORTED BLOOD SUGAR LEVELS AND NOTIFY PHYSICIAN AND/OR THE RN CLINICAL CHECK OUT CLERK FOR PHYSICIAN NOTIFICATION IF BLOOD SUGAR LEVELS ARE OUTSIDE ORDERED PARAMETERS. TEACH PATIENT/CAREGIVER ON DAILY FOOT INSPECTIONS [code = PT / SPINDLE SANDER TO MONITOR FOR HYPO/HYPERGLYCEMIA AND CONDUCT ROUTINE FOOT INSPECTIONS. RECORD PATIENT REPORTED BLOOD SUGAR LEVELS AND NOTIFY PHYSICIAN AND/OR THE RN CLINICAL CHECK OUT CLERK FOR PHYSICIAN NOTIFICATION IF BLOOD SUGAR LEVELS [...] End Date/Time Encounter Type Admission Type Attending [facility] Care Department Encounter ID Discharge Date Discharge Status Discharge Condition Discharge Reason Percent Goals Met 2025-02-25 00:00:00 2025-04-25 00:00:00 Outpatient RECERT[facility]AJ [facility] [id number] [id number]
--- OUTSIDE RECORDS SUMMARY | 2025-04-24 19:00 | XMS_ITS | Clinical Summary ---
Author Organization Unknown Care Team Providers Care Preparation Center Coordinator Name Role Phone PO PRAKASH KIRAN Unavailable Unavaila ble FECTEAU HEAD CLEANING PORTER, PHUONG Unavailable Unavailable KOREY RN, ALLY Unavailable Unavailable KEENA PT, PANKAJ Unavailable Unavailable Payers Payer Name Policy Type Policy Number Effective Date Expira tion Date MEDICARE.[facility] [id number] Problems Condition Name Condition Details Condition Category [...] HYPERCHOLEST EROLEMIA, UNSPECIFIED Active 10-28 00:00: 00 FPC (CURRENT) USE OF INSULIN Active 10-28 00:00: 00 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 MANAGER (CURRENT) USE OF SYSTEMIC STEROIDS Active 10-28 00:00: 00 SALES ADVISORY MANAGER (CURRENT) USE OF OPIATE ANALGESIC Active 10-28 [...] 10-27 00:00: 00 10-28 00:00 :00 No [id number] Per instruc tions Per instructio ns (route: oral) Med Classific ation: Analgesic , Anti-infl ammatory or Antipyret ic Dexcom G6 Sensor device 10-26 00:00: 00 10-28 00:00 :00 No [id number] Unavailable Per instruc tions Per instructio ns (route: miscellane ous) Med Classific ation: Medical Supplies and Durable Medical Equipment (DME) gabapentin 100 mg capsule 10-21 00:00: 00 10-28 00:00 :00 No [id number] Per instruc tions Per instructio ns (route: oral) Med Classific ation: Central Nervous System Agents amlodipine 10 mg tablet 10-19 00:00: 00 10-28 00:00 :00 No [id number] ESSENTIAL (PRIMARY) HYPERTENSIO N Per instruc tions DAILY Per instructio ns DAILY (route: oral) Med Classific ation: Cardiovas cular Therapy Agents Carin 2nd Gen Pen Needle 32 gauge x 5/32 10-19 00:00: 00 10-28 00:00 :00 No [id number] Per instruc tions INSULIN 5 TIMES DAILY Per instructio ns INSULIN 5 TIMES DAILY (route: miscellane ous) Med Classific ation: Medical Supplies and Durable Medical Equipment (DME) lisinopril 40 mg tablet 10-19 00:00: 00 10-28 00:00 :00 No [id number] ESSENTIAL (PRIMARY) HYPERTENSIO N Per instruc tions DAILY Per instructio ns DAILY (route: oral) Med Classific ation: Cardiovas cular Therapy Agents baclofen 10 mg tablet 10-15 00:00: 00 10-28 00:00 :00 No [id number] Per instruc tions Per instructio ns (route: oral) Med Classific ation: Locomotor System tramadol 50 mg tablet 10-15 00:00: 00 10-28 00:00 :00 No [id number] Per instruc tions Per instructio ns (route: oral) Med Classific ation: Analgesic , Anti-infl ammatory or Antipyret ic amoxicillin 875 mg tablet 10-13 00:00: 00 10-28 00:00 :00 No [id number] Per instruc tions Per instructio ns (route: oral) Med Classific ation: Anti-Infe ctive Agents chlorhexidi ne gluconate 0.12 % mouthwash 10-13 00:00: 00 10-28 00:00 :00 No [id number] Per instruc tions Per instructio ns (route: mucous membrane) Med Classific ation: Mouth-Thr oat-Denta l - Preparati ons cyclobenzap rine 10 mg tablet 10-09 00:00: 00 10-28 00:00 :00 No [id number] Per instruc tions Per instructio ns (route: oral) Med Classific ation: Locomotor System tadalafil 10 mg tablet 10-08 00:00: 00 10-28 00:00 :00 No [id number] MALE ERECTILE DYSFUNCTION , UNSPECIFIED Per instruc tions EVERY OTHER DAY NEEDED FOR SEXUAL ACTIVITY APPROXIMAT GONZALEZ 30 MINUTES PER 24 HOURS Per instructio ns EVERY OTHER DAY NEEDED FOR SEXUAL ACTIVITY APPROXIMAT GONZALEZ 30 MINUTES PER 24 HOURS (route: oral) Med Classific ation: Drugs to treat Erectile Dysfuncti on Ketostix strips 10-05 00:00: 00 10-28 00:00 :00 No [id number] 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 Per instruc tions AND DISCARD 1 TEST STRIP EVERY DAY NEEDED Per instructio ns AND DISCARD 1 TEST STRIP EVERY DAY NEEDED (route: miscellane ous) Med Classific ation: Medical Supplies and Durable Medical Equipment (DME) acetaminoph en 325 mg tablet 10-28 00:00: 00 Yes [id number] PAIN 2 tablet EVERY 4 HOURS 2 tablet EVERY 4 HOURS (route: oral) Med Classific ation: Analgesic , Anti-infl ammatory or Antipyret ic amlodipine 10 mg tablet 10-28 00:00: 00 Yes [id number] LOWERS BLOOD PRESSURE 1 tablet DAILY 1 tablet DAILY (route: oral) Med Classific ation: Cardiovas cular Therapy Agents atorvastati n 20 mg tablet 10-28 00:00: 00 Yes [id number] LOWERS CHOLESTEROL 1 tablet DAILY 1 tablet DAILY (route: oral) Med Classific ation: Cardiovas cular Therapy Agents cholecalcif swapna (vitamin D3) 25 mcg (1,000 unit) tablet 10-28 00:00: 00 Yes [id number] SUPPLEMENT 1 tablet DAILY 1 tablet DAILY (route: oral) Med Classific ation: Electroly te Balance-N utritiona l Products gabapentin 100 mg tablet 10-28 00:00: 00 Yes [id number] PAIN MANAGEMENT 1 tablet BEDTIME 1 tablet BEDTIME (route: oral) Med Classific ation: Central Nervous System Agents hydrochloro thiazide 12.5 mg tablet 10-28 00:00: 00 Yes [id number] FLUID RETENTION 1 tablet DAILY 1 tablet DAILY (route: oral) Med Classific ation: Cardiovas cular Therapy Agents insulin lispro (U-100) 100 unit/mL subcutaneou s pen 10-28 00:00: 00 Yes [id number] DIABETES Per instruc tions WITH MEALS Per instructio ns WITH MEALS (route: subcutaneo ) Med Classific ation: Endocrine lisinopril 40 mg tablet 10-28 00:00: 00 Yes [id number] LOWERS BLOOD PRESSURE 1 tablet DAILY 1 tablet DAILY (route: oral) Med Classific ation: Cardiovas cular Therapy Agents morphine 15 mg immediate release tablet 10-28 00:00: 00 Yes [id number] MODERATE PAIN 1 tablet EVERY 6 HOURS 1 tablet EVERY 6 HOURS (route: oral) Med Classific ation: Analgesic , Anti-infl ammatory or Antipyret ic omeprazole 20 mg capsule,del ayed release 10-28 00:00: 00 Yes [id number] GERD 1 capsule DAILY 1 capsule DAILY (route: oral) Med Classific ation: Gastroint estinal Therapy Agents prednisone 10 mg tablet 10-28 00:00: 00 Yes [id number] POLYMYALGIA 1 tablet DAILY 1 tablet DAILY (route: oral) Med Classific ation: Endocrine Tresiba FlexTouch U-100 insulin 100 unit/mL (3 mL) subcutaneou s pen 10-28 00:00: 00 Yes [id number] DIABETES 15 unit BEDTIME 15 unit BEDTIME (route: subcutaneo us) Med Classific ation: Endocrine naproxen 500 mg tablet 10-28 00:00: 00 Yes [id number] PAIN 1 tablet 2 TIMES DAILY 1 tablet 2 TIMES DAILY (route: oral) Med Classific ation: Analgesic , Anti-infl ammatory or Antipyret ic naproxen 500 mg tablet 11-18 00:00: 00 12-18 23:59 :00 No [id number] PAIN 1 tablet 2 TIMES DAILY 1 tablet 2 TIMES DAILY (route: oral) Med Classific ation: Analgesic , Anti-infl ammatory or Antipyret ic oxycodone 5 mg tablet 11-18 00:00: 00 Yes [id number] PAIN 1 tablet DAILY 1 tablet DAILY (route: oral) Med Classific ation: Analgesic , Anti-infl ammatory or Antipyret ic tramadol 50 mg tablet 12-18 00:00: 00 Yes [id number] SEVERE PAIN 1 tablet 3 TIMES DAILY [...] TO EVALUATE, OBSERVE / ASSESS, AND MONITOR, HEAD CLEANING PORTER TO OBSERVE AND MONITOR, PROVIDE SKILLED THERAPEUTIC INTERVENTION, ACTIVITY, EDUCATION, AND TRAINING TO ADDRESS; [code = AGENCY MAY PERFORM A RESUMPTION OF CARE VISIT FOLLOWING ANY HOSPITAL ADMISSION. PT TO EVALUATE, OBSERVE / ASSESS, AND MONITOR, HEAD CLEANING PORTER TO OBSERVE AND MONITOR, PROVIDE SKILLED THERAPEUTIC INTERVENTION, ACTIVITY, EDUCATION, AND TRAINING TO ADDRESS;] Future Scheduled Test PT/HEAD CLEANING PORTER TO PROVIDE GAIT TRAINING FOR IMPROVED MOBILITY AND /OR TO NORMALIZE GAIT PATTERN [code = PT/HEAD CLEANING PORTER TO PROVIDE GAIT TRAINING FOR IMPROVED MOBILITY AND /OR TO NORMALIZE GAIT PATTERN] Future Scheduled Test PT/HEAD CLEANING PORTER TO PROVIDE STAIR TRAINING [code = PT/HEAD CLEANING PORTER TO PROVIDE STAIR TRAINING] Future Scheduled Test NEUROMUSCU LAR RE-EDUCATION / BALANCE / POSTURAL CONTROL (PT) [code = NEUROMUSCULAR RE-EDUCATION / BALANCE / POSTURAL CONTROL (PT)] Future Scheduled Test THERAPEUTI C EXERCISES AND ESTABLISHING A HOME EXERCISE PROGRAM (PT/HEAD CLEANING PORTER) [code = THERAPEUTIC EXERCISES AND ESTABLISHING A HOME EXERCISE PROGRAM (PT/HEAD CLEANING PORTER)] Future Scheduled Test PT/HEAD CLEANING PORTER TO IDENTIFY FALL RISK FACTORS; EDUCATE THE PATIENT/CAREGIVER ON WAYS TO REDUCE FALL RISK FACTORS AND ESTABLISH HOME EXERCISE PROGRAM TO MINIMIZE FALL RISK. MAY TEACH THE PATIENT FLOOR RECOVERY WHEN CLINICALLY APPROPRIATE [code = PT/HEAD CLEANING PORTER TO IDENTIFY FALL RISK FACTORS; EDUCATE THE PATIENT/CAREGIVER ON WAYS TO REDUCE FALL RISK FACTORS AND ESTABLISH HOME EXERCISE PROGRAM TO MINIMIZE FALL RISK. MAY TEACH THE PATIENT FLOOR RECOVERY WHEN CLINICALLY APPROPRIATE] Future Scheduled Test PT/HEAD CLEANING PORTER TO EDUCATE ON ARTHRITIS SELF-MANAGEMENT PT/HEAD CLEANING PORTER MAY TEACH PATIENT APPLICATION OF CRYOTHERAPY/ HEAT FOR PAIN / SWELLING UP TO 20 MIN AT A TIME [code = PT/HEAD CLEANING PORTER TO EDUCATE ON ARTHRITIS SELF-MANAGEMENT PT/HEAD CLEANING PORTER MAY TEACH PATIENT APPLICATION OF CRYOTHERAPY/ HEAT FOR PAIN / SWELLING UP TO 20 MIN AT A TIME] Future Scheduled Test PT / HEAD CLEANING PORTER M AY EDUCATE ON PAIN MANAGEMENT CLINICALLY INDICATED, INCLUDING NON-PHARMACOLOGICAL PAIN REDUCTION TECHNIQUES AND USE OF CRYOTHERAPY OR HEAT UP TO 20 MIN AT A TIME FOR PAIN MANAGEMENT [code = PT / HEAD CLEANING PORTER MAY EDUCATE ON PAIN MANAGEMENT CLINICALLY INDICATED, INCLUDING NON-PHARMACOLOGICAL PAIN REDUCTION TECHNIQUES AND USE OF CRYOTHERAPY OR HEAT UP TO 20 MIN AT A TIME FOR PAIN MANAGEMENT] Future Scheduled Test PT / HEAD CLEANING PORTER T O MONITOR FOR HYPO/HYPERGLYCEMIA AND CONDUCT ROUTINE FOOT INSPECTIONS. RECORD PATIENT REPORTED BLOOD SUGAR LEVELS AND NOTIFY PHYSICIAN AND/OR THE RN CLINICAL BUDGET RECORD CLERK FOR PHYSICIAN NOTIFICATION IF BLOOD SUGAR LEVELS ARE OUTSIDE ORDERED PARAMETERS. TEACH PATIENT/CAREGIVER ON DAILY FOOT INSPECTIONS [code = PT / HEAD CLEANING PORTER TO MONITOR FOR HYPO/HYPERGLYCEMIA AND CONDUCT ROUTINE FOOT INSPECTIONS. RECORD PATIENT REPORTED BLOOD SUGAR LEVELS AND NOTIFY PHYSICIAN AND/OR THE RN CLINICAL BUDGET RECORD CLERK FOR PHYSICIAN NOTIFICATION IF BLOOD SUGAR [...] End Date/Time Encounter Type Admission Type Attending [facility] Care Department Encounter ID Discharge Date Discharge Status Discharge Condition Discharge Reason Percent Goals Met 2025-02-25 00:00:00 2025-04-25 00:00:00 Outpatient RECERTIFIC PANKAJ HASSAN [facility] [id number] 0.00
--- OUTSIDE RECORDS SUMMARY | 2025-04-24 19:00 | XMS_ITS | Clinical Summary ---
Author Organization Unknown Care Team Providers Care Psychologist Engineering Name Role Phone PO PRAKASH KIRAN Unavailable Unavaila ble FECTEAU BOOKING POLICE OFFICER, PHUONG Unavailable Unavailable KOREY RN, ALLY Unavailable Unavailable KEENA PT, PANKAJ Unavailable Unavailable Payers Payer Name Policy Type Policy Number Effective Date Expira tion Date MEDICARE.[facility] [id number] Problems Condition Name Condition Details Condition Category [...] HYPERCHOLEST EROLEMIA, UNSPECIFIED Active 10-28 00:00: 00 RESIDENTIAL (CURRENT) USE OF INSULIN Active 10-28 00:00: 00 GOVERNMENT GAUGER (CURRENT) USE OF SYSTEMIC STEROIDS Active 10-28 00:00: 00 GOVERNMENT GAUGER (CURRENT) USE OF OPIATE ANALGESIC Active 10-28 [...] 10-27 00:00: 00 10-28 00:00 :00 No [id number] Per instruc tions Per instructio ns (route: oral) Med Classific ation: Analgesic , Anti-infl ammatory or Antipyret ic Dexcom G6 Sensor device 10-26 00:00: 00 10-28 00:00 :00 No [id number] Unavailable Per instruc tions Per instructio ns (route: miscellane ous) Med Classific ation: Medical Supplies and Durable Medical Equipment (DME) gabapentin 100 mg capsule 10-21 00:00: 00 10-28 00:00 :00 No [id number] Per instruc tions Per instructio ns (route: oral) Med Classific ation: Central Nervous System Agents amlodipine 10 mg tablet 10-19 00:00: 00 10-28 00:00 :00 No [id number] ESSENTIAL (PRIMARY) HYPERTENSIO N Per instruc tions DAILY Per instructio ns DAILY (route: oral) Med Classific ation: Cardiovas cular Therapy Agents Carin 2nd Gen Pen Needle 32 gauge x 5/32 10-19 00:00: 00 10-28 00:00 :00 No [id number] Per instruc tions INSULIN 5 TIMES DAILY Per instructio ns INSULIN 5 TIMES DAILY (route: miscellane ous) Med Classific ation: Medical Supplies and Durable Medical Equipment (DME) lisinopril 40 mg tablet 10-19 00:00: 00 10-28 00:00 :00 No [id number] ESSENTIAL (PRIMARY) HYPERTENSIO N Per instruc tions DAILY Per instructio ns DAILY (route: oral) Med Classific ation: Cardiovas cular Therapy Agents baclofen 10 mg tablet 10-15 00:00: 00 10-28 00:00 :00 No [id number] Per instruc tions Per instructio ns (route: oral) Med Classific ation: Locomotor System tramadol 50 mg tablet 10-15 00:00: 00 10-28 00:00 :00 No [id number] Per instruc tions Per instructio ns (route: oral) Med Classific ation: Analgesic , Anti-infl ammatory or Antipyret ic amoxicillin 875 mg tablet 10-13 00:00: 00 10-28 00:00 :00 No [id number] Per instruc tions Per instructio ns (route: oral) Med Classific ation: Anti-Infe ctive Agents chlorhexidi ne gluconate 0.12 % mouthwash 10-13 00:00: 00 10-28 00:00 :00 No [id number] Per instruc tions Per instructio ns (route: mucous membrane) Med Classific ation: Mouth-Thr oat-Denta l - Preparati ons cyclobenzap rine 10 mg tablet 10-09 00:00: 00 10-28 00:00 :00 No [id number] Per instruc tions Per instructio ns (route: oral) Med Classific ation: Locomotor System tadalafil 10 mg tablet 10-08 00:00: 00 10-28 00:00 :00 No [id number] MALE ERECTILE DYSFUNCTION , UNSPECIFIED Per instruc tions EVERY OTHER DAY NEEDED FOR SEXUAL ACTIVITY APPROXIMAT GONZALEZ 30 MINUTES PER 24 HOURS Per instructio ns EVERY OTHER DAY NEEDED FOR SEXUAL ACTIVITY APPROXIMAT GONZALEZ 30 MINUTES PER 24 HOURS (route: oral) Med Classific ation: Drugs to treat Erectile Dysfuncti on Ketostix strips 10-05 00:00: 00 10-28 00:00 :00 No [id number] 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 Per instruc tions AND DISCARD 1 TEST STRIP EVERY DAY NEEDED Per instructio ns AND DISCARD 1 TEST STRIP EVERY DAY NEEDED (route: miscellane ous) Med Classific ation: Medical Supplies and Durable Medical Equipment (DME) acetaminoph en 325 mg tablet 10-28 00:00: 00 Yes [id number] PAIN 2 tablet EVERY 4 HOURS 2 tablet EVERY 4 HOURS (route: oral) Med Classific ation: Analgesic , Anti-infl ammatory or Antipyret ic amlodipine 10 mg tablet 10-28 00:00: 00 Yes [id number] LOWERS BLOOD PRESSURE 1 tablet DAILY 1 tablet DAILY (route: oral) Med Classific ation: Cardiovas cular Therapy Agents atorvastati n 20 mg tablet 10-28 00:00: 00 Yes [id number] LOWERS CHOLESTEROL 1 tablet DAILY 1 tablet DAILY (route: oral) Med Classific ation: Cardiovas cular Therapy Agents cholecalcif swapna (vitamin D3) 25 mcg (1,000 unit) tablet 10-28 00:00: 00 Yes [id number] SUPPLEMENT 1 tablet DAILY 1 tablet DAILY (route: oral) Med Classific ation: Electroly te Balance-N utritiona l Products gabapentin 100 mg tablet 10-28 00:00: 00 Yes [id number] PAIN MANAGEMENT 1 tablet BEDTIME 1 tablet BEDTIME (route: oral) Med Classific ation: Central Nervous System Agents hydrochloro thiazide 12.5 mg tablet 10-28 00:00: 00 Yes [id number] FLUID RETENTION 1 tablet DAILY 1 tablet DAILY (route: oral) Med Classific ation: Cardiovas cular Therapy Agents insulin lispro (U-100) 100 unit/mL subcutaneou s pen 10-28 00:00: 00 Yes [id number] DIABETES Per instruc tions WITH MEALS Per instructio ns WITH MEALS (route: subcutaneo ) Med Classific ation: Endocrine lisinopril 40 mg tablet 10-28 00:00: 00 Yes [id number] LOWERS BLOOD PRESSURE 1 tablet DAILY 1 tablet DAILY (route: oral) Med Classific ation: Cardiovas cular Therapy Agents morphine 15 mg immediate release tablet 10-28 00:00: 00 Yes [id number] MODERATE PAIN 1 tablet EVERY 6 HOURS 1 tablet EVERY 6 HOURS (route: oral) Med Classific ation: Analgesic , Anti-infl ammatory or Antipyret ic omeprazole 20 mg capsule,del ayed release 10-28 00:00: 00 Yes [id number] GERD 1 capsule DAILY 1 capsule DAILY (route: oral) Med Classific ation: Gastroint estinal Therapy Agents prednisone 10 mg tablet 10-28 00:00: 00 Yes [id number] POLYMYALGIA 1 tablet DAILY 1 tablet DAILY (route: oral) Med Classific ation: Endocrine Tresiba FlexTouch U-100 insulin 100 unit/mL (3 mL) subcutaneou s pen 10-28 00:00: 00 Yes [id number] DIABETES 15 unit BEDTIME 15 unit BEDTIME (route: subcutaneo us) Med Classific ation: Endocrine naproxen 500 mg tablet 10-28 00:00: 00 Yes [id number] PAIN 1 tablet 2 TIMES DAILY 1 tablet 2 TIMES DAILY (route: oral) Med Classific ation: Analgesic , Anti-infl ammatory or Antipyret ic naproxen 500 mg tablet 11-18 00:00: 00 12-18 23:59 :00 No [id number] PAIN 1 tablet 2 TIMES DAILY 1 tablet 2 TIMES DAILY (route: oral) Med Classific ation: Analgesic , Anti-infl ammatory or Antipyret ic oxycodone 5 mg tablet 11-18 00:00: 00 Yes [id number] PAIN 1 tablet DAILY 1 tablet DAILY (route: oral) Med Classific ation: Analgesic , Anti-infl ammatory or Antipyret ic tramadol 50 mg tablet 12-18 00:00: 00 Yes [id number] SEVERE PAIN 1 tablet 3 TIMES DAILY [...] TO EVALUATE, OBSERVE / ASSESS, AND MONITOR, BOOKING POLICE OFFICER TO OBSERVE AND MONITOR, PROVIDE SKILLED THERAPEUTIC INTERVENTION, ACTIVITY, EDUCATION, AND TRAINING TO ADDRESS; [code = AGENCY MAY PERFORM A RESUMPTION OF CARE VISIT FOLLOWING ANY HOSPITAL ADMISSION. PT TO EVALUATE, OBSERVE / ASSESS, AND MONITOR, BOOKING POLICE OFFICER TO OBSERVE AND MONITOR, PROVIDE SKILLED THERAPEUTIC INTERVENTION, ACTIVITY, EDUCATION, AND TRAINING TO ADDRESS;] Future Scheduled Test PT/BOOKING POLICE OFFICER TO PROVIDE GAIT TRAINING FOR IMPROVED MOBILITY AND /OR TO NORMALIZE GAIT PATTERN [code = PT/BOOKING POLICE OFFICER TO PROVIDE GAIT TRAINING FOR IMPROVED MOBILITY AND /OR TO NORMALIZE GAIT PATTERN] Future Scheduled Test PT/BOOKING POLICE OFFICER TO PROVIDE STAIR TRAINING [code = PT/BOOKING POLICE OFFICER TO PROVIDE STAIR TRAINING] Future Scheduled Test NEUROMUSCU LAR RE-EDUCATION / BALANCE / POSTURAL CONTROL (PT) [code = NEUROMUSCULAR RE-EDUCATION / BALANCE / POSTURAL CONTROL (PT)] Future Scheduled Test THERAPEUTI C EXERCISES AND ESTABLISHING A HOME EXERCISE PROGRAM (PT/BOOKING POLICE OFFICER) [code = THERAPEUTIC EXERCISES AND ESTABLISHING A HOME EXERCISE PROGRAM (PT/BOOKING POLICE OFFICER)] Future Scheduled Test PT/BOOKING POLICE OFFICER TO IDENTIFY FALL RISK FACTORS; EDUCATE THE PATIENT/CAREGIVER ON WAYS TO REDUCE FALL RISK FACTORS AND ESTABLISH HOME EXERCISE PROGRAM TO MINIMIZE FALL RISK. MAY TEACH THE PATIENT FLOOR RECOVERY WHEN CLINICALLY APPROPRIATE [code = PT/BOOKING POLICE OFFICER TO IDENTIFY FALL RISK FACTORS; EDUCATE THE PATIENT/CAREGIVER ON WAYS TO REDUCE FALL RISK FACTORS AND ESTABLISH HOME EXERCISE PROGRAM TO MINIMIZE FALL RISK. MAY TEACH THE PATIENT FLOOR RECOVERY WHEN CLINICALLY APPROPRIATE] Future Scheduled Test PT/BOOKING POLICE OFFICER TO EDUCATE ON ARTHRITIS SELF-MANAGEMENT PT/BOOKING POLICE OFFICER MAY TEACH PATIENT APPLICATION OF CRYOTHERAPY/ HEAT FOR PAIN / SWELLING UP TO 20 MIN AT A TIME [code = PT/BOOKING POLICE OFFICER TO EDUCATE ON ARTHRITIS SELF-MANAGEMENT PT/BOOKING POLICE OFFICER MAY TEACH PATIENT APPLICATION OF CRYOTHERAPY/ HEAT FOR PAIN / SWELLING UP TO 20 MIN AT A TIME] Future Scheduled Test PT / BOOKING POLICE OFFICER M AY EDUCATE ON PAIN MANAGEMENT CLINICALLY INDICATED, INCLUDING NON-PHARMACOLOGICAL PAIN REDUCTION TECHNIQUES AND USE OF CRYOTHERAPY OR HEAT UP TO 20 MIN AT A TIME FOR PAIN MANAGEMENT [code = PT / BOOKING POLICE OFFICER MAY EDUCATE ON PAIN MANAGEMENT CLINICALLY INDICATED, INCLUDING NON-PHARMACOLOGICAL PAIN REDUCTION TECHNIQUES AND USE OF CRYOTHERAPY OR HEAT UP TO 20 MIN AT A TIME FOR PAIN MANAGEMENT] Future Scheduled Test PT / BOOKING POLICE OFFICER T O MONITOR FOR HYPO/HYPERGLYCEMIA AND CONDUCT ROUTINE FOOT INSPECTIONS. RECORD PATIENT REPORTED BLOOD SUGAR LEVELS AND NOTIFY PHYSICIAN AND/OR THE RN CLINICAL MORTGAGE CONSULTANT FOR PHYSICIAN NOTIFICATION IF BLOOD SUGAR LEVELS ARE OUTSIDE ORDERED PARAMETERS. TEACH PATIENT/CAREGIVER ON DAILY FOOT INSPECTIONS [code = PT / BOOKING POLICE OFFICER TO MONITOR FOR HYPO/HYPERGLYCEMIA AND CONDUCT ROUTINE FOOT INSPECTIONS. RECORD PATIENT REPORTED BLOOD SUGAR LEVELS AND NOTIFY PHYSICIAN AND/OR THE RN CLINICAL MORTGAGE CONSULTANT FOR PHYSICIAN NOTIFICATION IF BLOOD SUGAR [...] RECERTIFIC PANKAJ HASSAN [facility] [id number] 0.00
--- OUTSIDE RECORDS SUMMARY | 2025-04-24 19:00 | XMS_ITS | Clinical Summary ---
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) USE OF SYSTEMIC STEROIDS Active 10-28 00:00: 00 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 REGISTERED LOCKSMITH (CURRENT) USE OF OPIATE ANALGESIC Active 10-28 [...] 10-27 00:00: 00 10-28 00:00 :00 No [id number] Per instruc tions Per instructio ns (route: oral) Med Classific ation: Analgesic , Anti-infl ammatory or Antipyret ic Dexcom G6 Sensor device 10-26 00:00: 00 10-28 00:00 :00 No [id number] Unavailable Per instruc tions Per instructio ns (route: miscellane ous) Med Classific ation: Medical Supplies and Durable Medical Equipment (DME) gabapentin 100 mg capsule 10-21 00:00: 00 10-28 00:00 :00 No [id number] Per instruc tions Per instructio ns (route: oral) Med Classific ation: Central Nervous System Agents amlodipine 10 mg tablet 10-19 00:00: 00 10-28 00:00 :00 No [id number] ESSENTIAL (PRIMARY) HYPERTENSIO N Per instruc tions DAILY Per instructio ns DAILY (route: oral) Med Classific ation: Cardiovas cular Therapy Agents Carin 2nd Gen Pen Needle 32 gauge x 5/32 10-19 00:00: 00 10-28 00:00 :00 No [id number] Per instruc tions INSULIN 5 TIMES DAILY Per instructio ns INSULIN 5 TIMES DAILY (route: miscellane ous) Med Classific ation: Medical Supplies and Durable Medical Equipment (DME) lisinopril 40 mg tablet 10-19 00:00: 00 10-28 00:00 :00 No [id number] ESSENTIAL (PRIMARY) HYPERTENSIO N Per instruc tions DAILY Per instructio ns DAILY (route: oral) Med Classific ation: Cardiovas cular Therapy Agents baclofen 10 mg tablet 10-15 00:00: 00 10-28 00:00 :00 No [id number] Per instruc tions Per instructio ns (route: oral) Med Classific ation: Locomotor System tramadol 50 mg tablet 10-15 00:00: 00 10-28 00:00 :00 No [id number] Per instruc tions Per instructio ns (route: oral) Med Classific ation: Analgesic , Anti-infl ammatory or Antipyret ic amoxicillin 875 mg tablet 10-13 00:00: 00 10-28 00:00 :00 No [id number] Per instruc tions Per instructio ns (route: oral) Med Classific ation: Anti-Infe ctive Agents chlorhexidi ne gluconate 0.12 % mouthwash 10-13 00:00: 00 10-28 00:00 :00 No [id number] Per instruc tions Per instructio ns (route: mucous membrane) Med Classific ation: Mouth-Thr oat-Denta l - Preparati ons cyclobenzap rine 10 mg tablet 10-09 00:00: 00 10-28 00:00 :00 No [id number] Per instruc tions Per instructio ns (route: oral) Med Classific ation: Locomotor System tadalafil 10 mg tablet 10-08 00:00: 00 10-28 00:00 :00 No [id number] MALE ERECTILE DYSFUNCTION , UNSPECIFIED Per instruc tions EVERY OTHER DAY NEEDED FOR SEXUAL ACTIVITY APPROXIMAT GONZALEZ 30 MINUTES PER 24 HOURS Per instructio ns EVERY OTHER DAY NEEDED FOR SEXUAL ACTIVITY APPROXIMAT GONZALEZ 30 MINUTES PER 24 HOURS (route: oral) Med Classific ation: Drugs to treat Erectile Dysfuncti on Ketostix strips 10-05 00:00: 00 10-28 00:00 :00 No [id number] 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 Per instruc tions AND DISCARD 1 TEST STRIP EVERY DAY NEEDED Per instructio ns AND DISCARD 1 TEST STRIP EVERY DAY NEEDED (route: miscellane ous) Med Classific ation: Medical Supplies and Durable Medical Equipment (DME) acetaminoph en 325 mg tablet 10-28 00:00: 00 Yes [id number] PAIN 2 tablet EVERY 4 HOURS 2 tablet EVERY 4 HOURS (route: oral) Med Classific ation: Analgesic , Anti-infl ammatory or Antipyret ic amlodipine 10 mg tablet 10-28 00:00: 00 Yes [id number] LOWERS BLOOD PRESSURE 1 tablet DAILY 1 tablet DAILY (route: oral) Med Classific ation: Cardiovas cular Therapy Agents atorvastati n 20 mg tablet 10-28 00:00: 00 Yes [id number] LOWERS CHOLESTEROL 1 tablet DAILY 1 tablet DAILY (route: oral) Med Classific ation: Cardiovas cular Therapy Agents cholecalcif swapna (vitamin D3) 25 mcg (1,000 unit) tablet 10-28 00:00: 00 Yes [id number] SUPPLEMENT 1 tablet DAILY 1 tablet DAILY (route: oral) Med Classific ation: Electroly te Balance-N utritiona l Products gabapentin 100 mg tablet 10-28 00:00: 00 Yes [id number] PAIN MANAGEMENT 1 tablet BEDTIME 1 tablet BEDTIME (route: oral) Med Classific ation: Central Nervous System Agents hydrochloro thiazide 12.5 mg tablet 10-28 00:00: 00 Yes [id number] FLUID RETENTION 1 tablet DAILY 1 tablet DAILY (route: oral) Med Classific ation: Cardiovas cular Therapy Agents insulin lispro (U-100) 100 unit/mL subcutaneou s pen 10-28 00:00: 00 Yes [id number] DIABETES Per instruc tions WITH MEALS Per instructio ns WITH MEALS (route: subcutaneo ) Med Classific ation: Endocrine lisinopril 40 mg tablet 10-28 00:00: 00 Yes [id number] LOWERS BLOOD PRESSURE 1 tablet DAILY 1 tablet DAILY (route: oral) Med Classific ation: Cardiovas cular Therapy Agents morphine 15 mg immediate release tablet 10-28 00:00: 00 Yes [id number] MODERATE PAIN 1 tablet EVERY 6 HOURS 1 tablet EVERY 6 HOURS (route: oral) Med Classific ation: Analgesic , Anti-infl ammatory or Antipyret ic omeprazole 20 mg capsule,del ayed release 10-28 00:00: 00 Yes [id number] GERD 1 capsule DAILY 1 capsule DAILY (route: oral) Med Classific ation: Gastroint estinal Therapy Agents prednisone 10 mg tablet 10-28 00:00: 00 Yes [id number] POLYMYALGIA 1 tablet DAILY 1 tablet DAILY (route: oral) Med Classific ation: Endocrine Tresiba FlexTouch U-100 insulin 100 unit/mL (3 mL) subcutaneou s pen 10-28 00:00: 00 Yes [id number] DIABETES 15 unit BEDTIME 15 unit BEDTIME (route: subcutaneo us) Med Classific ation: Endocrine naproxen 500 mg tablet 10-28 00:00: 00 Yes [id number] PAIN 1 tablet 2 TIMES DAILY 1 tablet 2 TIMES DAILY (route: oral) Med Classific ation: Analgesic , Anti-infl ammatory or Antipyret ic naproxen 500 mg tablet 11-18 00:00: 00 12-18 23:59 :00 No [id number] PAIN 1 tablet 2 TIMES DAILY 1 tablet 2 TIMES DAILY (route: oral) Med Classific ation: Analgesic , Anti-infl ammatory or Antipyret ic oxycodone 5 mg tablet 11-18 00:00: 00 Yes [id number] PAIN 1 tablet DAILY 1 tablet DAILY (route: oral) Med Classific ation: Analgesic , Anti-infl ammatory or Antipyret ic tramadol 50 mg tablet 12-18 00:00: 00 Yes [id number] SEVERE PAIN 1 tablet 3 TIMES DAILY [...] TO EVALUATE, OBSERVE / ASSESS, AND MONITOR, MARKETER TO OBSERVE AND MONITOR, PROVIDE SKILLED THERAPEUTIC INTERVENTION, ACTIVITY, EDUCATION, AND TRAINING TO ADDRESS; [code = AGENCY MAY PERFORM A RESUMPTION OF CARE VISIT FOLLOWING ANY HOSPITAL ADMISSION. PT TO EVALUATE, OBSERVE / ASSESS, AND MONITOR, MARKETER TO OBSERVE AND MONITOR, PROVIDE SKILLED THERAPEUTIC INTERVENTION, ACTIVITY, EDUCATION, AND TRAINING TO ADDRESS;] Future Scheduled Test PT/MARKETER TO PROVIDE GAIT TRAINING FOR IMPROVED MOBILITY AND /OR TO NORMALIZE GAIT PATTERN [code = PT/MARKETER TO PROVIDE GAIT TRAINING FOR IMPROVED MOBILITY AND /OR TO NORMALIZE GAIT PATTERN] Future Scheduled Test PT/MARKETER TO PROVIDE STAIR TRAINING [code = PT/MARKETER TO PROVIDE STAIR TRAINING] Future Scheduled Test NEUROMUSCU LAR RE-EDUCATION / BALANCE / POSTURAL CONTROL (PT) [code = NEUROMUSCULAR RE-EDUCATION / BALANCE / POSTURAL CONTROL (PT)] Future Scheduled Test THERAPEUTI C EXERCISES AND ESTABLISHING A HOME EXERCISE PROGRAM (PT/MARKETER) [code = THERAPEUTIC EXERCISES AND ESTABLISHING A HOME EXERCISE PROGRAM (PT/MARKETER)] Future Scheduled Test PT/MARKETER TO IDENTIFY FALL RISK FACTORS; EDUCATE THE PATIENT/CAREGIVER ON WAYS TO REDUCE FALL RISK FACTORS AND ESTABLISH HOME EXERCISE PROGRAM TO MINIMIZE FALL RISK. MAY TEACH THE PATIENT FLOOR RECOVERY WHEN CLINICALLY APPROPRIATE [code = PT/MARKETER TO IDENTIFY FALL RISK FACTORS; EDUCATE THE PATIENT/CAREGIVER ON WAYS TO REDUCE FALL RISK FACTORS AND ESTABLISH HOME EXERCISE PROGRAM TO MINIMIZE FALL RISK. MAY TEACH THE PATIENT FLOOR RECOVERY WHEN CLINICALLY APPROPRIATE] Future Scheduled Test PT/MARKETER TO EDUCATE ON ARTHRITIS SELF-MANAGEMENT PT/MARKETER MAY TEACH PATIENT APPLICATION OF CRYOTHERAPY/ HEAT FOR PAIN / SWELLING UP TO 20 MIN AT A TIME [code = PT/MARKETER TO EDUCATE ON ARTHRITIS SELF-MANAGEMENT PT/MARKETER MAY TEACH PATIENT APPLICATION OF CRYOTHERAPY/ HEAT FOR PAIN / SWELLING UP TO 20 MIN AT A TIME] Future Scheduled Test PT / MARKETER M AY EDUCATE ON PAIN MANAGEMENT CLINICALLY INDICATED, INCLUDING NON-PHARMACOLOGICAL PAIN REDUCTION TECHNIQUES AND USE OF CRYOTHERAPY OR HEAT UP TO 20 MIN AT A TIME FOR PAIN MANAGEMENT [code = PT / MARKETER MAY EDUCATE ON PAIN MANAGEMENT CLINICALLY INDICATED, INCLUDING NON-PHARMACOLOGICAL PAIN REDUCTION TECHNIQUES AND USE OF CRYOTHERAPY OR HEAT UP TO 20 MIN AT A TIME FOR PAIN MANAGEMENT] Future Scheduled Test PT / MARKETER T O MONITOR FOR HYPO/HYPERGLYCEMIA AND CONDUCT ROUTINE FOOT INSPECTIONS. RECORD PATIENT REPORTED BLOOD SUGAR LEVELS AND NOTIFY PHYSICIAN AND/OR THE RN CLINICAL FAN ENGINE ENGINEER FOR PHYSICIAN NOTIFICATION IF BLOOD SUGAR LEVELS ARE OUTSIDE ORDERED PARAMETERS. TEACH PATIENT/CAREGIVER ON DAILY FOOT INSPECTIONS [code = PT / MARKETER TO MONITOR FOR HYPO/HYPERGLYCEMIA AND CONDUCT ROUTINE FOOT INSPECTIONS. RECORD PATIENT REPORTED BLOOD SUGAR LEVELS AND NOTIFY PHYSICIAN AND/OR THE RN CLINICAL FAN ENGINE ENGINEER FOR PHYSICIAN NOTIFICATION IF BLOOD SUGAR LEVELS [...] Met 2025-02-25 00:00:00 2025-04-25 00:00:00 Outpatient RECERTIFIC PAKNAJ HASSAN [facility] [id number] 0.00
--- OUTSIDE RECORDS SUMMARY | 2025-04-24 19:00 | XMS_ITS | Clinical Summary ---
Author Organization Unknown Care Team Providers Care Border Measurer And Cutter Name Role Phone PO PRAKASH KIRAN Unavailable Unavaila ble FECTEAU PROCESS IMPROVEMENT SPECIALIST, PHUONG Unavailable Unavailable KOREY RN, ALLY Unavailable Unavailable KEENA PT, PANKAJ Unavailable Unavailable Payers Payer Name Policy Type Policy Number Effective Date Expira tion Date MEDICARE.[facility] [id number] Problems Condition Name Condition Details Condition Category [...] HYPERCHOLEST EROLEMIA, UNSPECIFIED Active 10-28 00:00: 00 LONG-TERM (CURRENT) USE OF INSULIN Active 10-28 00:00: 00 TODDLER NANNY (CURRENT) USE OF SYSTEMIC STEROIDS Active 10-28 00:00: 00 TODDLER NANNY (CURRENT) USE OF OPIATE ANALGESIC Active 10-28 [...] 10-27 00:00: 00 10-28 00:00 :00 No [id number] Per instruc tions Per instructio ns (route: oral) Med Classific ation: Analgesic , Anti-infl ammatory or Antipyret ic Dexcom G6 Sensor device 10-26 00:00: 00 10-28 00:00 :00 No [id number] Unavailable Per instruc tions Per instructio ns (route: miscellane ous) Med Classific ation: Medical Supplies and Durable Medical Equipment (DME) gabapentin 100 mg capsule 10-21 00:00: 00 10-28 00:00 :00 No [id number] Per instruc tions Per instructio ns (route: oral) Med Classific ation: Central Nervous System Agents amlodipine 10 mg tablet 10-19 00:00: 00 10-28 00:00 :00 No [id number] ESSENTIAL (PRIMARY) HYPERTENSIO N Per instruc tions DAILY Per instructio ns DAILY (route: oral) Med Classific ation: Cardiovas cular Therapy Agents Carin 2nd Gen Pen Needle 32 gauge x 5/32 10-19 00:00: 00 10-28 00:00 :00 No [id number] Per instruc tions INSULIN 5 TIMES DAILY Per instructio ns INSULIN 5 TIMES DAILY (route: miscellane ous) Med Classific ation: Medical Supplies and Durable Medical Equipment (DME) lisinopril 40 mg tablet 10-19 00:00: 00 10-28 00:00 :00 No [id number] ESSENTIAL (PRIMARY) HYPERTENSIO N Per instruc tions DAILY Per instructio ns DAILY (route: oral) Med Classific ation: Cardiovas cular Therapy Agents baclofen 10 mg tablet 10-15 00:00: 00 10-28 00:00 :00 No [id number] Per instruc tions Per instructio ns (route: oral) Med Classific ation: Locomotor System tramadol 50 mg tablet 10-15 00:00: 00 10-28 00:00 :00 No [id number] Per instruc tions Per instructio ns (route: oral) Med Classific ation: Analgesic , Anti-infl ammatory or Antipyret ic amoxicillin 875 mg tablet 10-13 00:00: 00 10-28 00:00 :00 No [id number] Per instruc tions Per instructio ns (route: oral) Med Classific ation: Anti-Infe ctive Agents chlorhexidi ne gluconate 0.12 % mouthwash 10-13 00:00: 00 10-28 00:00 :00 No [id number] Per instruc tions Per instructio ns (route: mucous membrane) Med Classific ation: Mouth-Thr oat-Denta l - Preparati ons cyclobenzap rine 10 mg tablet 10-09 00:00: 00 10-28 00:00 :00 No [id number] Per instruc tions Per instructio ns (route: oral) Med Classific ation: Locomotor System tadalafil 10 mg tablet 10-08 00:00: 00 10-28 00:00 :00 No [id number] MALE ERECTILE DYSFUNCTION , UNSPECIFIED Per instruc tions EVERY OTHER DAY NEEDED FOR SEXUAL ACTIVITY APPROXIMAT GONZALEZ 30 MINUTES PER 24 HOURS Per instructio ns EVERY OTHER DAY NEEDED FOR SEXUAL ACTIVITY APPROXIMAT GONZALEZ 30 MINUTES PER 24 HOURS (route: oral) Med Classific ation: Drugs to treat Erectile Dysfuncti on Ketostix strips 10-05 00:00: 00 10-28 00:00 :00 No [id number] 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 Per instruc tions AND DISCARD 1 TEST STRIP EVERY DAY NEEDED Per instructio ns AND DISCARD 1 TEST STRIP EVERY DAY NEEDED (route: miscellane ous) Med Classific ation: Medical Supplies and Durable Medical Equipment (DME) acetaminoph en 325 mg tablet 10-28 00:00: 00 Yes [id number] PAIN 2 tablet EVERY 4 HOURS 2 tablet EVERY 4 HOURS (route: oral) Med Classific ation: Analgesic , Anti-infl ammatory or Antipyret ic amlodipine 10 mg tablet 10-28 00:00: 00 Yes [id number] LOWERS BLOOD PRESSURE 1 tablet DAILY 1 tablet DAILY (route: oral) Med Classific ation: Cardiovas cular Therapy Agents atorvastati n 20 mg tablet 10-28 00:00: 00 Yes [id number] LOWERS CHOLESTEROL 1 tablet DAILY 1 tablet DAILY (route: oral) Med Classific ation: Cardiovas cular Therapy Agents cholecalcif swapna (vitamin D3) 25 mcg (1,000 unit) tablet 10-28 00:00: 00 Yes [id number] SUPPLEMENT 1 tablet DAILY 1 tablet DAILY (route: oral) Med Classific ation: Electroly te Balance-N utritiona l Products gabapentin 100 mg tablet 10-28 00:00: 00 Yes [id number] PAIN MANAGEMENT 1 tablet BEDTIME 1 tablet BEDTIME (route: oral) Med Classific ation: Central Nervous System Agents hydrochloro thiazide 12.5 mg tablet 10-28 00:00: 00 Yes [id number] FLUID RETENTION 1 tablet DAILY 1 tablet DAILY (route: oral) Med Classific ation: Cardiovas cular Therapy Agents insulin lispro (U-100) 100 unit/mL subcutaneou s pen 10-28 00:00: 00 Yes [id number] DIABETES Per instruc tions WITH MEALS Per instructio ns WITH MEALS (route: subcutaneo ) Med Classific ation: Endocrine lisinopril 40 mg tablet 10-28 00:00: 00 Yes [id number] LOWERS BLOOD PRESSURE 1 tablet DAILY 1 tablet DAILY (route: oral) Med Classific ation: Cardiovas cular Therapy Agents morphine 15 mg immediate release tablet 10-28 00:00: 00 Yes [id number] MODERATE PAIN 1 tablet EVERY 6 HOURS 1 tablet EVERY 6 HOURS (route: oral) Med Classific ation: Analgesic , Anti-infl ammatory or Antipyret ic omeprazole 20 mg capsule,del ayed release 10-28 00:00: 00 Yes [id number] GERD 1 capsule DAILY 1 capsule DAILY (route: oral) Med Classific ation: Gastroint estinal Therapy Agents prednisone 10 mg tablet 10-28 00:00: 00 Yes [id number] POLYMYALGIA 1 tablet DAILY 1 tablet DAILY (route: oral) Med Classific ation: Endocrine Tresiba FlexTouch U-100 insulin 100 unit/mL (3 mL) subcutaneou s pen 10-28 00:00: 00 Yes [id number] DIABETES 15 unit BEDTIME 15 unit BEDTIME (route: subcutaneo us) Med Classific ation: Endocrine naproxen 500 mg tablet 10-28 00:00: 00 Yes [id number] PAIN 1 tablet 2 TIMES DAILY 1 tablet 2 TIMES DAILY (route: oral) Med Classific ation: Analgesic , Anti-infl ammatory or Antipyret ic naproxen 500 mg tablet 11-18 00:00: 00 12-18 23:59 :00 No [id number] PAIN 1 tablet 2 TIMES DAILY 1 tablet 2 TIMES DAILY (route: oral) Med Classific ation: Analgesic , Anti-infl ammatory or Antipyret ic oxycodone 5 mg tablet 11-18 00:00: 00 Yes [id number] PAIN 1 tablet DAILY 1 tablet DAILY (route: oral) Med Classific ation: Analgesic , Anti-infl ammatory or Antipyret ic tramadol 50 mg tablet 12-18 00:00: 00 Yes [id number] SEVERE PAIN 1 tablet 3 TIMES DAILY [...] TO EVALUATE, OBSERVE / ASSESS, AND MONITOR, PROCESS IMPROVEMENT SPECIALIST TO OBSERVE AND MONITOR, PROVIDE SKILLED THERAPEUTIC INTERVENTION, ACTIVITY, EDUCATION, AND TRAINING TO ADDRESS; [code = AGENCY MAY PERFORM A RESUMPTION OF CARE VISIT FOLLOWING ANY HOSPITAL ADMISSION. PT TO EVALUATE, OBSERVE / ASSESS, AND MONITOR, PROCESS IMPROVEMENT SPECIALIST TO OBSERVE AND MONITOR, PROVIDE SKILLED THERAPEUTIC INTERVENTION, ACTIVITY, EDUCATION, AND TRAINING TO ADDRESS;] Future Scheduled Test PT/PROCESS IMPROVEMENT SPECIALIST TO PROVIDE GAIT TRAINING FOR IMPROVED MOBILITY AND /OR TO NORMALIZE GAIT PATTERN [code = PT/PROCESS IMPROVEMENT SPECIALIST TO PROVIDE GAIT TRAINING FOR IMPROVED MOBILITY AND /OR TO NORMALIZE GAIT PATTERN] Future Scheduled Test PT/PROCESS IMPROVEMENT SPECIALIST TO PROVIDE STAIR TRAINING [code = PT/PROCESS IMPROVEMENT SPECIALIST TO PROVIDE STAIR TRAINING] Future Scheduled Test NEUROMUSCU LAR RE-EDUCATION / BALANCE / POSTURAL CONTROL (PT) [code = NEUROMUSCULAR RE-EDUCATION / BALANCE / POSTURAL CONTROL (PT)] Future Scheduled Test THERAPEUTI C EXERCISES AND ESTABLISHING A HOME EXERCISE PROGRAM (PT/PROCESS IMPROVEMENT SPECIALIST) [code = THERAPEUTIC EXERCISES AND ESTABLISHING A HOME EXERCISE PROGRAM (PT/PROCESS IMPROVEMENT SPECIALIST)] Future Scheduled Test PT/PROCESS IMPROVEMENT SPECIALIST TO IDENTIFY FALL RISK FACTORS; EDUCATE THE PATIENT/CAREGIVER ON WAYS TO REDUCE FALL RISK FACTORS AND ESTABLISH HOME EXERCISE PROGRAM TO MINIMIZE FALL RISK. MAY TEACH THE PATIENT FLOOR RECOVERY WHEN CLINICALLY APPROPRIATE [code = PT/PROCESS IMPROVEMENT SPECIALIST TO IDENTIFY FALL RISK FACTORS; EDUCATE THE PATIENT/CAREGIVER ON WAYS TO REDUCE FALL RISK FACTORS AND ESTABLISH HOME EXERCISE PROGRAM TO MINIMIZE FALL RISK. MAY TEACH THE PATIENT FLOOR RECOVERY WHEN CLINICALLY APPROPRIATE] Future Scheduled Test PT/PROCESS IMPROVEMENT SPECIALIST TO EDUCATE ON ARTHRITIS SELF-MANAGEMENT PT/PROCESS IMPROVEMENT SPECIALIST MAY TEACH PATIENT APPLICATION OF CRYOTHERAPY/ HEAT FOR PAIN / SWELLING UP TO 20 MIN AT A TIME [code = PT/PROCESS IMPROVEMENT SPECIALIST TO EDUCATE ON ARTHRITIS SELF-MANAGEMENT PT/PROCESS IMPROVEMENT SPECIALIST MAY TEACH PATIENT APPLICATION OF CRYOTHERAPY/ HEAT FOR PAIN / SWELLING UP TO 20 MIN AT A TIME] Future Scheduled Test PT / PROCESS IMPROVEMENT SPECIALIST M AY EDUCATE ON PAIN MANAGEMENT CLINICALLY INDICATED, INCLUDING NON-PHARMACOLOGICAL PAIN REDUCTION TECHNIQUES AND USE OF CRYOTHERAPY OR HEAT UP TO 20 MIN AT A TIME FOR PAIN MANAGEMENT [code = PT / PROCESS IMPROVEMENT SPECIALIST MAY EDUCATE ON PAIN MANAGEMENT CLINICALLY INDICATED, INCLUDING NON-PHARMACOLOGICAL PAIN REDUCTION TECHNIQUES AND USE OF CRYOTHERAPY OR HEAT UP TO 20 MIN AT A TIME FOR PAIN MANAGEMENT] Future Scheduled Test PT / PROCESS IMPROVEMENT SPECIALIST T O MONITOR FOR HYPO/HYPERGLYCEMIA AND CONDUCT ROUTINE FOOT INSPECTIONS. RECORD PATIENT REPORTED BLOOD SUGAR LEVELS AND NOTIFY PHYSICIAN AND/OR THE RN CLINICAL CONVEYOR MECHANIC FOR PHYSICIAN NOTIFICATION IF BLOOD SUGAR LEVELS ARE OUTSIDE ORDERED PARAMETERS. TEACH PATIENT/CAREGIVER ON DAILY FOOT INSPECTIONS [code = PT / PROCESS IMPROVEMENT SPECIALIST TO MONITOR FOR HYPO/HYPERGLYCEMIA AND CONDUCT ROUTINE FOOT INSPECTIONS. RECORD PATIENT REPORTED BLOOD SUGAR LEVELS AND NOTIFY PHYSICIAN AND/OR THE RN CLINICAL CONVEYOR MECHANIC FOR PHYSICIAN NOTIFICATION IF BLOOD SUGAR [...] 00:00:00 2025-04-25 00:00:00 Outpatient RECERTIFIC PANKAJ HASSAN [facility] [id number] 0.00
--- OUTSIDE RECORDS SUMMARY | 2025-04-24 19:00 | XMS_ITS | Clinical Summary ---
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 SYSTEMIC 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 Active 10-28 00:00: 00 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) USE OF OPIATE ANALGESIC Active [...] 10-27 00:00: 00 10-28 00:00 :00 No [id number] Per instruc tions Per instructio ns (route: oral) Med Classific ation: Analgesic , Anti-infl ammatory or Antipyret ic Dexcom G6 Sensor device 10-26 00:00: 00 10-28 00:00 :00 No [id number] Unavailable Per instruc tions Per instructio ns (route: miscellane ous) Med Classific ation: Medical Supplies and Durable Medical Equipment (DME) gabapentin 100 mg capsule 10-21 00:00: 00 10-28 00:00 :00 No [id number] Per instruc tions Per instructio ns (route: oral) Med Classific ation: Central Nervous System Agents amlodipine 10 mg tablet 10-19 00:00: 00 10-28 00:00 :00 No [id number] ESSENTIAL (PRIMARY) HYPERTENSIO N Per instruc tions DAILY Per instructio ns DAILY (route: oral) Med Classific ation: Cardiovas cular Therapy Agents Carin 2nd Gen Pen Needle 32 gauge x 5/32 10-19 00:00: 00 10-28 00:00 :00 No [id number] Per instruc tions INSULIN 5 TIMES DAILY Per instructio ns INSULIN 5 TIMES DAILY (route: miscellane ous) Med Classific ation: Medical Supplies and Durable Medical Equipment (DME) lisinopril 40 mg tablet 10-19 00:00: 00 10-28 00:00 :00 No [id number] ESSENTIAL (PRIMARY) HYPERTENSIO N Per instruc tions DAILY Per instructio ns DAILY (route: oral) Med Classific ation: Cardiovas cular Therapy Agents baclofen 10 mg tablet 10-15 00:00: 00 10-28 00:00 :00 No [id number] Per instruc tions Per instructio ns (route: oral) Med Classific ation: Locomotor System tramadol 50 mg tablet 10-15 00:00: 00 10-28 00:00 :00 No [id number] Per instruc tions Per instructio ns (route: oral) Med Classific ation: Analgesic , Anti-infl ammatory or Antipyret ic amoxicillin 875 mg tablet 10-13 00:00: 00 10-28 00:00 :00 No [id number] Per instruc tions Per instructio ns (route: oral) Med Classific ation: Anti-Infe ctive Agents chlorhexidi ne gluconate 0.12 % mouthwash 10-13 00:00: 00 10-28 00:00 :00 No [id number] Per instruc tions Per instructio ns (route: mucous membrane) Med Classific ation: Mouth-Thr oat-Denta l - Preparati ons cyclobenzap rine 10 mg tablet 10-09 00:00: 00 10-28 00:00 :00 No [id number] Per instruc tions Per instructio ns (route: oral) Med Classific ation: Locomotor System tadalafil 10 mg tablet 10-08 00:00: 00 10-28 00:00 :00 No [id number] MALE ERECTILE DYSFUNCTION , UNSPECIFIED Per instruc tions EVERY OTHER DAY NEEDED FOR SEXUAL ACTIVITY APPROXIMAT GONZALEZ 30 MINUTES PER 24 HOURS Per instructio ns EVERY OTHER DAY NEEDED FOR SEXUAL ACTIVITY APPROXIMAT GONZALEZ 30 MINUTES PER 24 HOURS (route: oral) Med Classific ation: Drugs to treat Erectile Dysfuncti on Ketostix strips 10-05 00:00: 00 10-28 00:00 :00 No [id number] 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 Per instruc tions AND DISCARD 1 TEST STRIP EVERY DAY NEEDED Per instructio ns AND DISCARD 1 TEST STRIP EVERY DAY NEEDED (route: miscellane ous) Med Classific ation: Medical Supplies and Durable Medical Equipment (DME) acetaminoph en 325 mg tablet 10-28 00:00: 00 Yes [id number] PAIN 2 tablet EVERY 4 HOURS 2 tablet EVERY 4 HOURS (route: oral) Med Classific ation: Analgesic , Anti-infl ammatory or Antipyret ic amlodipine 10 mg tablet 10-28 00:00: 00 Yes [id number] LOWERS BLOOD PRESSURE 1 tablet DAILY 1 tablet DAILY (route: oral) Med Classific ation: Cardiovas cular Therapy Agents atorvastati n 20 mg tablet 10-28 00:00: 00 Yes [id number] LOWERS CHOLESTEROL 1 tablet DAILY 1 tablet DAILY (route: oral) Med Classific ation: Cardiovas cular Therapy Agents cholecalcif swapna (vitamin D3) 25 mcg (1,000 unit) tablet 10-28 00:00: 00 Yes [id number] SUPPLEMENT 1 tablet DAILY 1 tablet DAILY (route: oral) Med Classific ation: Electroly te Balance-N utritiona l Products gabapentin 100 mg tablet 10-28 00:00: 00 Yes [id number] PAIN MANAGEMENT 1 tablet BEDTIME 1 tablet BEDTIME (route: oral) Med Classific ation: Central Nervous System Agents hydrochloro thiazide 12.5 mg tablet 10-28 00:00: 00 Yes [id number] FLUID RETENTION 1 tablet DAILY 1 tablet DAILY (route: oral) Med Classific ation: Cardiovas cular Therapy Agents insulin lispro (U-100) 100 unit/mL subcutaneou s pen 10-28 00:00: 00 Yes [id number] DIABETES Per instruc tions WITH MEALS Per instructio ns WITH MEALS (route: subcutaneo ) Med Classific ation: Endocrine lisinopril 40 mg tablet 10-28 00:00: 00 Yes [id number] LOWERS BLOOD PRESSURE 1 tablet DAILY 1 tablet DAILY (route: oral) Med Classific ation: Cardiovas cular Therapy Agents morphine 15 mg immediate release tablet 10-28 00:00: 00 Yes [id number] MODERATE PAIN 1 tablet EVERY 6 HOURS 1 tablet EVERY 6 HOURS (route: oral) Med Classific ation: Analgesic , Anti-infl ammatory or Antipyret ic omeprazole 20 mg capsule,del ayed release 10-28 00:00: 00 Yes [id number] GERD 1 capsule DAILY 1 capsule DAILY (route: oral) Med Classific ation: Gastroint estinal Therapy Agents prednisone 10 mg tablet 10-28 00:00: 00 Yes [id number] POLYMYALGIA 1 tablet DAILY 1 tablet DAILY (route: oral) Med Classific ation: Endocrine Tresiba FlexTouch U-100 insulin 100 unit/mL (3 mL) subcutaneou s pen 10-28 00:00: 00 Yes [id number] DIABETES 15 unit BEDTIME 15 unit BEDTIME (route: subcutaneo us) Med Classific ation: Endocrine naproxen 500 mg tablet 10-28 00:00: 00 Yes [id number] PAIN 1 tablet 2 TIMES DAILY 1 tablet 2 TIMES DAILY (route: oral) Med Classific ation: Analgesic , Anti-infl ammatory or Antipyret ic naproxen 500 mg tablet 11-18 00:00: 00 12-18 23:59 :00 No [id number] PAIN 1 tablet 2 TIMES DAILY 1 tablet 2 TIMES DAILY (route: oral) Med Classific ation: Analgesic , Anti-infl ammatory or Antipyret ic oxycodone 5 mg tablet 11-18 00:00: 00 Yes [id number] PAIN 1 tablet DAILY 1 tablet DAILY (route: oral) Med Classific ation: Analgesic , Anti-infl ammatory or Antipyret ic tramadol 50 mg tablet 12-18 00:00: 00 Yes [id number] SEVERE PAIN 1 tablet 3 TIMES DAILY [...] TO EVALUATE, OBSERVE / ASSESS, AND MONITOR, DIPLOMATIC COURIER TO OBSERVE AND MONITOR, PROVIDE SKILLED THERAPEUTIC INTERVENTION, ACTIVITY, EDUCATION, AND TRAINING TO ADDRESS; [code = AGENCY MAY PERFORM A RESUMPTION OF CARE VISIT FOLLOWING ANY HOSPITAL ADMISSION. PT TO EVALUATE, OBSERVE / ASSESS, AND MONITOR, DIPLOMATIC COURIER TO OBSERVE AND MONITOR, PROVIDE SKILLED THERAPEUTIC INTERVENTION, ACTIVITY, EDUCATION, AND TRAINING TO ADDRESS;] Future Scheduled Test PT/DIPLOMATIC COURIER TO PROVIDE GAIT TRAINING FOR IMPROVED MOBILITY AND /OR TO NORMALIZE GAIT PATTERN [code = PT/DIPLOMATIC COURIER TO PROVIDE GAIT TRAINING FOR IMPROVED MOBILITY AND /OR TO NORMALIZE GAIT PATTERN] Future Scheduled Test PT/DIPLOMATIC COURIER TO PROVIDE STAIR TRAINING [code = PT/DIPLOMATIC COURIER TO PROVIDE STAIR TRAINING] Future Scheduled Test NEUROMUSCU LAR RE-EDUCATION / BALANCE / POSTURAL CONTROL (PT) [code = NEUROMUSCULAR RE-EDUCATION / BALANCE / POSTURAL CONTROL (PT)] Future Scheduled Test THERAPEUTI C EXERCISES AND ESTABLISHING A HOME EXERCISE PROGRAM (PT/DIPLOMATIC COURIER) [code = THERAPEUTIC EXERCISES AND ESTABLISHING A HOME EXERCISE PROGRAM (PT/DIPLOMATIC COURIER)] Future Scheduled Test PT/DIPLOMATIC COURIER TO IDENTIFY FALL RISK FACTORS; EDUCATE THE PATIENT/CAREGIVER ON WAYS TO REDUCE FALL RISK FACTORS AND ESTABLISH HOME EXERCISE PROGRAM TO MINIMIZE FALL RISK. MAY TEACH THE PATIENT FLOOR RECOVERY WHEN CLINICALLY APPROPRIATE [code = PT/DIPLOMATIC COURIER TO IDENTIFY FALL RISK FACTORS; EDUCATE THE PATIENT/CAREGIVER ON WAYS TO REDUCE FALL RISK FACTORS AND ESTABLISH HOME EXERCISE PROGRAM TO MINIMIZE FALL RISK. MAY TEACH THE PATIENT FLOOR RECOVERY WHEN CLINICALLY APPROPRIATE] Future Scheduled Test PT/DIPLOMATIC COURIER TO EDUCATE ON ARTHRITIS SELF-MANAGEMENT PT/DIPLOMATIC COURIER MAY TEACH PATIENT APPLICATION OF CRYOTHERAPY/ HEAT FOR PAIN / SWELLING UP TO 20 MIN AT A TIME [code = PT/DIPLOMATIC COURIER TO EDUCATE ON ARTHRITIS SELF-MANAGEMENT PT/DIPLOMATIC COURIER MAY TEACH PATIENT APPLICATION OF CRYOTHERAPY/ HEAT FOR PAIN / SWELLING UP TO 20 MIN AT A TIME] Future Scheduled Test PT / DIPLOMATIC COURIER M AY EDUCATE ON PAIN MANAGEMENT CLINICALLY INDICATED, INCLUDING NON-PHARMACOLOGICAL PAIN REDUCTION TECHNIQUES AND USE OF CRYOTHERAPY OR HEAT UP TO 20 MIN AT A TIME FOR PAIN MANAGEMENT [code = PT / DIPLOMATIC COURIER MAY EDUCATE ON PAIN MANAGEMENT CLINICALLY INDICATED, INCLUDING NON-PHARMACOLOGICAL PAIN REDUCTION TECHNIQUES AND USE OF CRYOTHERAPY OR HEAT UP TO 20 MIN AT A TIME FOR PAIN MANAGEMENT] Future Scheduled Test PT / DIPLOMATIC COURIER T O MONITOR FOR HYPO/HYPERGLYCEMIA AND CONDUCT ROUTINE FOOT INSPECTIONS. RECORD PATIENT REPORTED BLOOD SUGAR LEVELS AND NOTIFY PHYSICIAN AND/OR THE RN CLINICAL CLINICAL RESEARCH NURSE FOR PHYSICIAN NOTIFICATION IF BLOOD SUGAR LEVELS ARE OUTSIDE ORDERED PARAMETERS. TEACH PATIENT/CAREGIVER ON DAILY FOOT INSPECTIONS [code = PT / DIPLOMATIC COURIER TO MONITOR FOR HYPO/HYPERGLYCEMIA AND CONDUCT ROUTINE FOOT INSPECTIONS. RECORD PATIENT REPORTED BLOOD SUGAR LEVELS AND NOTIFY PHYSICIAN AND/OR THE RN CLINICAL CLINICAL RESEARCH NURSE FOR PHYSICIAN NOTIFICATION IF BLOOD SUGAR LEVELS [...] 00:00:00 Outpatient RECERTIFIC PANKAJ HASSAN [facility] [id number] 0.00
--- OUTSIDE RECORDS SUMMARY | 2025-04-24 19:00 | XMS_ITS | Clinical Summary ---
Author Organization Unknown Care Team Providers Care Barrel Turner Name Role Phone PO PRAKASH KIRAN Unavailable Unavaila ble FECTEAU SCRAPER HAND, PHUONG Unavailable Unavailable KOREY RN, ALLY Unavailable Unavailable KEENA PT, PANKAJ Unavailable Unavailable Payers Payer Name Policy Type Policy Number Effective Date Expira tion Date [facility]ICARE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) USE OF OPIATE ANALGESIC Active 10-28 [...] 10-27 00:00: 00 10-28 00:00 :00 No [id number] Per instruc tions Per instructio ns (route: oral) Med Classific ation: Analgesic , Anti-infl ammatory or Antipyret ic Dexcom G6 Sensor device 10-26 00:00: 00 10-28 00:00 :00 No [id number] Unavailable Per instruc tions Per instructio ns (route: miscellane ous) Med Classific ation: Medical Supplies and Durable Medical Equipment (DME) gabapentin 100 mg capsule 10-21 00:00: 00 10-28 00:00 :00 No [id number] Per instruc tions Per instructio ns (route: oral) Med Classific ation: Central Nervous System Agents amlodipine 10 mg tablet 10-19 00:00: 00 10-28 00:00 :00 No [id number] ESSENTIAL (PRIMARY) HYPERTENSIO N Per instruc tions DAILY Per instructio ns DAILY (route: oral) Med Classific ation: Cardiovas cular Therapy Agents Carin 2nd Gen Pen Needle 32 gauge x 5/32 10-19 00:00: 00 10-28 00:00 :00 No [id number] Per instruc tions INSULIN 5 TIMES DAILY Per instructio ns INSULIN 5 TIMES DAILY (route: miscellane ous) Med Classific ation: Medical Supplies and Durable Medical Equipment (DME) lisinopril 40 mg tablet 10-19 00:00: 00 10-28 00:00 :00 No [id number] ESSENTIAL (PRIMARY) HYPERTENSIO N Per instruc tions DAILY Per instructio ns DAILY (route: oral) Med Classific ation: Cardiovas cular Therapy Agents baclofen 10 mg tablet 10-15 00:00: 00 10-28 00:00 :00 No [id number] Per instruc tions Per instructio ns (route: oral) Med Classific ation: Locomotor System tramadol 50 mg tablet 10-15 00:00: 00 10-28 00:00 :00 No [id number] Per instruc tions Per instructio ns (route: oral) Med Classific ation: Analgesic , Anti-infl ammatory or Antipyret ic amoxicillin 875 mg tablet 10-13 00:00: 00 10-28 00:00 :00 No [id number] Per instruc tions Per instructio ns (route: oral) Med Classific ation: Anti-Infe ctive Agents chlorhexidi ne gluconate 0.12 % mouthwash 10-13 00:00: 00 10-28 00:00 :00 No [id number] Per instruc tions Per instructio ns (route: mucous membrane) Med Classific ation: Mouth-Thr oat-Denta l - Preparati ons cyclobenzap rine 10 mg tablet 10-09 00:00: 00 10-28 00:00 :00 No [id number] Per instruc tions Per instructio ns (route: oral) Med Classific ation: Locomotor System tadalafil 10 mg tablet 10-08 00:00: 00 10-28 00:00 :00 No [id number] MALE ERECTILE DYSFUNCTION , UNSPECIFIED Per instruc tions EVERY OTHER DAY NEEDED FOR SEXUAL ACTIVITY APPROXIMAT GONZALEZ 30 MINUTES PER 24 HOURS Per instructio ns EVERY OTHER DAY NEEDED FOR SEXUAL ACTIVITY APPROXIMAT GONZALEZ 30 MINUTES PER 24 HOURS (route: oral) Med Classific ation: Drugs to treat Erectile Dysfuncti on Ketostix strips 10-05 00:00: 00 10-28 00:00 :00 No [id number] 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 Per instruc tions AND DISCARD 1 TEST STRIP EVERY DAY NEEDED Per instructio ns AND DISCARD 1 TEST STRIP EVERY DAY NEEDED (route: miscellane ous) Med Classific ation: Medical Supplies and Durable Medical Equipment (DME) acetaminoph en 325 mg tablet 10-28 00:00: 00 Yes [id number] PAIN 2 tablet EVERY 4 HOURS 2 tablet EVERY 4 HOURS (route: oral) Med Classific ation: Analgesic , Anti-infl ammatory or Antipyret ic amlodipine 10 mg tablet 10-28 00:00: 00 Yes [id number] LOWERS BLOOD PRESSURE 1 tablet DAILY 1 tablet DAILY (route: oral) Med Classific ation: Cardiovas cular Therapy Agents atorvastati n 20 mg tablet 10-28 00:00: 00 Yes [id number] LOWERS CHOLESTEROL 1 tablet DAILY 1 tablet DAILY (route: oral) Med Classific ation: Cardiovas cular Therapy Agents cholecalcif swapna (vitamin D3) 25 mcg (1,000 unit) tablet 10-28 00:00: 00 Yes [id number] SUPPLEMENT 1 tablet DAILY 1 tablet DAILY (route: oral) Med Classific ation: Electroly te Balance-N utritiona l Products gabapentin 100 mg tablet 10-28 00:00: 00 Yes [id number] PAIN MANAGEMENT 1 tablet BEDTIME 1 tablet BEDTIME (route: oral) Med Classific ation: Central Nervous System Agents hydrochloro thiazide 12.5 mg tablet 10-28 00:00: 00 Yes [id number] FLUID RETENTION 1 tablet DAILY 1 tablet DAILY (route: oral) Med Classific ation: Cardiovas cular Therapy Agents insulin lispro (U-100) 100 unit/mL subcutaneou s pen 10-28 00:00: 00 Yes [id number] DIABETES Per instruc tions WITH MEALS Per instructio ns WITH MEALS (route: subcutaneo ) Med Classific ation: Endocrine lisinopril 40 mg tablet 10-28 00:00: 00 Yes [id number] LOWERS BLOOD PRESSURE 1 tablet DAILY 1 tablet DAILY (route: oral) Med Classific ation: Cardiovas cular Therapy Agents morphine 15 mg immediate release tablet 10-28 00:00: 00 Yes [id number] MODERATE PAIN 1 tablet EVERY 6 HOURS 1 tablet EVERY 6 HOURS (route: oral) Med Classific ation: Analgesic , Anti-infl ammatory or Antipyret ic omeprazole 20 mg capsule,del ayed release 10-28 00:00: 00 Yes [id number] GERD 1 capsule DAILY 1 capsule DAILY (route: oral) Med Classific ation: Gastroint estinal Therapy Agents prednisone 10 mg tablet 10-28 00:00: 00 Yes [id number] POLYMYALGIA 1 tablet DAILY 1 tablet DAILY (route: oral) Med Classific ation: Endocrine Tresiba FlexTouch U-100 insulin 100 unit/mL (3 mL) subcutaneou s pen 10-28 00:00: 00 Yes [id number] DIABETES 15 unit BEDTIME 15 unit BEDTIME (route: subcutaneo us) Med Classific ation: Endocrine naproxen 500 mg tablet 10-28 00:00: 00 Yes [id number] PAIN 1 tablet 2 TIMES DAILY 1 tablet 2 TIMES DAILY (route: oral) Med Classific ation: Analgesic , Anti-infl ammatory or Antipyret ic naproxen 500 mg tablet 11-18 00:00: 00 12-18 23:59 :00 No [id number] PAIN 1 tablet 2 TIMES DAILY 1 tablet 2 TIMES DAILY (route: oral) Med Classific ation: Analgesic , Anti-infl ammatory or Antipyret ic oxycodone 5 mg tablet 11-18 00:00: 00 Yes [id number] PAIN 1 tablet DAILY 1 tablet DAILY (route: oral) Med Classific ation: Analgesic , Anti-infl ammatory or Antipyret ic tramadol 50 mg tablet 12-18 00:00: 00 Yes [id number] SEVERE PAIN 1 tablet 3 TIMES DAILY [...] TO EVALUATE, OBSERVE / ASSESS, AND MONITOR, SCRAPER HAND TO OBSERVE AND MONITOR, PROVIDE SKILLED THERAPEUTIC INTERVENTION, ACTIVITY, EDUCATION, AND TRAINING TO ADDRESS; [code = AGENCY MAY PERFORM A RESUMPTION OF CARE VISIT FOLLOWING ANY HOSPITAL ADMISSION. PT TO EVALUATE, OBSERVE / ASSESS, AND MONITOR, SCRAPER HAND TO OBSERVE AND MONITOR, PROVIDE SKILLED THERAPEUTIC INTERVENTION, ACTIVITY, EDUCATION, AND TRAINING TO ADDRESS;] Future Scheduled Test PT/SCRAPER HAND TO PROVIDE GAIT TRAINING FOR IMPROVED MOBILITY AND /OR TO NORMALIZE GAIT PATTERN [code = PT/SCRAPER HAND TO PROVIDE GAIT TRAINING FOR IMPROVED MOBILITY AND /OR TO NORMALIZE GAIT PATTERN] Future Scheduled Test PT/SCRAPER HAND TO PROVIDE STAIR TRAINING [code = PT/SCRAPER HAND TO PROVIDE STAIR TRAINING] Future Scheduled Test NEUROMUSCU LAR RE-EDUCATION / BALANCE / POSTURAL CONTROL (PT) [code = NEUROMUSCULAR RE-EDUCATION / BALANCE / POSTURAL CONTROL (PT)] Future Scheduled Test THERAPEUTI C EXERCISES AND ESTABLISHING A HOME EXERCISE PROGRAM (PT/SCRAPER HAND) [code = THERAPEUTIC EXERCISES AND ESTABLISHING A HOME EXERCISE PROGRAM (PT/SCRAPER HAND)] Future Scheduled Test PT/SCRAPER HAND TO IDENTIFY FALL RISK FACTORS; EDUCATE THE PATIENT/CAREGIVER ON WAYS TO REDUCE FALL RISK FACTORS AND ESTABLISH HOME EXERCISE PROGRAM TO MINIMIZE FALL RISK. MAY TEACH THE PATIENT FLOOR RECOVERY WHEN CLINICALLY APPROPRIATE [code = PT/SCRAPER HAND TO IDENTIFY FALL RISK FACTORS; EDUCATE THE PATIENT/CAREGIVER ON WAYS TO REDUCE FALL RISK FACTORS AND ESTABLISH HOME EXERCISE PROGRAM TO MINIMIZE FALL RISK. MAY TEACH THE PATIENT FLOOR RECOVERY WHEN CLINICALLY APPROPRIATE] Future Scheduled Test PT/SCRAPER HAND TO EDUCATE ON ARTHRITIS SELF-MANAGEMENT PT/SCRAPER HAND MAY TEACH PATIENT APPLICATION OF CRYOTHERAPY/ HEAT FOR PAIN / SWELLING UP TO 20 MIN AT A TIME [code = PT/SCRAPER HAND TO EDUCATE ON ARTHRITIS SELF-MANAGEMENT PT/SCRAPER HAND MAY TEACH PATIENT APPLICATION OF CRYOTHERAPY/ HEAT FOR PAIN / SWELLING UP TO 20 MIN AT A TIME] Future Scheduled Test PT / SCRAPER HAND M AY EDUCATE ON PAIN MANAGEMENT CLINICALLY INDICATED, INCLUDING NON-PHARMACOLOGICAL PAIN REDUCTION TECHNIQUES AND USE OF CRYOTHERAPY OR HEAT UP TO 20 MIN AT A TIME FOR PAIN MANAGEMENT [code = PT / SCRAPER HAND MAY EDUCATE ON PAIN MANAGEMENT CLINICALLY INDICATED, INCLUDING NON-PHARMACOLOGICAL PAIN REDUCTION TECHNIQUES AND USE OF CRYOTHERAPY OR HEAT UP TO 20 MIN AT A TIME FOR PAIN MANAGEMENT] Future Scheduled Test PT / SCRAPER HAND T O MONITOR FOR HYPO/HYPERGLYCEMIA AND CONDUCT ROUTINE FOOT INSPECTIONS. RECORD PATIENT REPORTED BLOOD SUGAR LEVELS AND NOTIFY PHYSICIAN AND/OR THE RN CLINICAL PROGRAM COORDINATOR FOR PHYSICIAN NOTIFICATION IF BLOOD SUGAR LEVELS ARE OUTSIDE ORDERED PARAMETERS. TEACH PATIENT/CAREGIVER ON DAILY FOOT INSPECTIONS [code = PT / SCRAPER HAND TO MONITOR FOR HYPO/HYPERGLYCEMIA AND CONDUCT ROUTINE FOOT INSPECTIONS. RECORD PATIENT REPORTED BLOOD SUGAR LEVELS AND NOTIFY PHYSICIAN AND/OR THE RN CLINICAL PROGRAM COORDINATOR FOR PHYSICIAN NOTIFICATION IF BLOOD SUGAR [...] Date/Time Encounter Type Admission Type Attending [facility] [place] Facility Care Department Encounter ID Discharge Date Discharge Status Discharge Condition Discharge Reason Percent Goals Met 2025-02-25 00:00:00 2025-04-25 00:00:00 Outpatient RECERTIFIC PANKAJ HASSAN [facility] [id number] [id number]
--- OUTSIDE RECORDS SUMMARY | 2025-04-24 19:00 | XMS_ITS | Clinical Summary ---
Author Organization Unknown Care Team Providers Care Lab Head Name Role Phone PO PRAKASH KIRAN Unavailable Unavaila ble FECTEAU CANCER PROGRAM CONSULTANT, PHUONG Unavailable Unavailable KOREY RN, ALLY Unavailable Unavailable KEENA PT, PANKAJ Unavailable Unavailable Payers Payer Name Policy Type Policy Number Effective Date Expira tion Date MEDICARE.[facility] [id number] Problems Condition Name Condition Details Condition Category [...] USE OF INSULIN Active 10-28 00:00: 00 ROLL SCALE MAN (CURRENT) USE OF SYSTEMIC STEROIDS Active 10-28 00:00: 00 ROLL SCALE MAN (CURRENT) USE OF OPIATE ANALGESIC Active 10-28 [...] 10-27 00:00: 00 10-28 00:00 :00 No [id number] Per instruc tions Per instructio ns (route: oral) Med Classific ation: Analgesic , Anti-infl ammatory or Antipyret ic Dexcom G6 Sensor device 10-26 00:00: 00 10-28 00:00 :00 No [id number] Unavailable Per instruc tions Per instructio ns (route: miscellane ous) Med Classific ation: Medical Supplies and Durable Medical Equipment (DME) gabapentin 100 mg capsule 10-21 00:00: 00 10-28 00:00 :00 No [id number] Per instruc tions Per instructio ns (route: oral) Med Classific ation: Central Nervous System Agents amlodipine 10 mg tablet 10-19 00:00: 00 10-28 00:00 :00 No [id number] ESSENTIAL (PRIMARY) HYPERTENSIO N Per instruc tions DAILY Per instructio ns DAILY (route: oral) Med Classific ation: Cardiovas cular Therapy Agents Carin 2nd Gen Pen Needle 32 gauge x 5/32 10-19 00:00: 00 10-28 00:00 :00 No [id number] Per instruc tions INSULIN 5 TIMES DAILY Per instructio ns INSULIN 5 TIMES DAILY (route: miscellane ous) Med Classific ation: Medical Supplies and Durable Medical Equipment (DME) lisinopril 40 mg tablet 10-19 00:00: 00 10-28 00:00 :00 No [id number] ESSENTIAL (PRIMARY) HYPERTENSIO N Per instruc tions DAILY Per instructio ns DAILY (route: oral) Med Classific ation: Cardiovas cular Therapy Agents baclofen 10 mg tablet 10-15 00:00: 00 10-28 00:00 :00 No [id number] Per instruc tions Per instructio ns (route: oral) Med Classific ation: Locomotor System tramadol 50 mg tablet 10-15 00:00: 00 10-28 00:00 :00 No [id number] Per instruc tions Per instructio ns (route: oral) Med Classific ation: Analgesic , Anti-infl ammatory or Antipyret ic amoxicillin 875 mg tablet 10-13 00:00: 00 10-28 00:00 :00 No [id number] Per instruc tions Per instructio ns (route: oral) Med Classific ation: Anti-Infe ctive Agents chlorhexidi ne gluconate 0.12 % mouthwash 10-13 00:00: 00 10-28 00:00 :00 No [id number] Per instruc tions Per instructio ns (route: mucous membrane) Med Classific ation: Mouth-Thr oat-Denta l - Preparati ons cyclobenzap rine 10 mg tablet 10-09 00:00: 00 10-28 00:00 :00 No [id number] Per instruc tions Per instructio ns (route: oral) Med Classific ation: Locomotor System tadalafil 10 mg tablet 10-08 00:00: 00 10-28 00:00 :00 No [id number] MALE ERECTILE DYSFUNCTION , UNSPECIFIED Per instruc tions EVERY OTHER DAY NEEDED FOR SEXUAL ACTIVITY APPROXIMAT GONZALEZ 30 MINUTES PER 24 HOURS Per instructio ns EVERY OTHER DAY NEEDED FOR SEXUAL ACTIVITY APPROXIMAT GONZALEZ 30 MINUTES PER 24 HOURS (route: oral) Med Classific ation: Drugs to treat Erectile Dysfuncti on Ketostix strips 10-05 00:00: 00 10-28 00:00 :00 No [id number] 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 Per instruc tions AND DISCARD 1 TEST STRIP EVERY DAY NEEDED Per instructio ns AND DISCARD 1 TEST STRIP EVERY DAY NEEDED (route: miscellane ous) Med Classific ation: Medical Supplies and Durable Medical Equipment (DME) acetaminoph en 325 mg tablet 10-28 00:00: 00 Yes [id number] PAIN 2 tablet EVERY 4 HOURS 2 tablet EVERY 4 HOURS (route: oral) Med Classific ation: Analgesic , Anti-infl ammatory or Antipyret ic amlodipine 10 mg tablet 10-28 00:00: 00 Yes [id number] LOWERS BLOOD PRESSURE 1 tablet DAILY 1 tablet DAILY (route: oral) Med Classific ation: Cardiovas cular Therapy Agents atorvastati n 20 mg tablet 10-28 00:00: 00 Yes [id number] LOWERS CHOLESTEROL 1 tablet DAILY 1 tablet DAILY (route: oral) Med Classific ation: Cardiovas cular Therapy Agents cholecalcif swapna (vitamin D3) 25 mcg (1,000 unit) tablet 10-28 00:00: 00 Yes [id number] SUPPLEMENT 1 tablet DAILY 1 tablet DAILY (route: oral) Med Classific ation: Electroly te Balance-N utritiona l Products gabapentin 100 mg tablet 10-28 00:00: 00 Yes [id number] PAIN MANAGEMENT 1 tablet BEDTIME 1 tablet BEDTIME (route: oral) Med Classific ation: Central Nervous System Agents hydrochloro thiazide 12.5 mg tablet 10-28 00:00: 00 Yes [id number] FLUID RETENTION 1 tablet DAILY 1 tablet DAILY (route: oral) Med Classific ation: Cardiovas cular Therapy Agents insulin lispro (U-100) 100 unit/mL subcutaneou s pen 10-28 00:00: 00 Yes [id number] DIABETES Per instruc tions WITH MEALS Per instructio ns WITH MEALS (route: subcutaneo ) Med Classific ation: Endocrine lisinopril 40 mg tablet 10-28 00:00: 00 Yes [id number] LOWERS BLOOD PRESSURE 1 tablet DAILY 1 tablet DAILY (route: oral) Med Classific ation: Cardiovas cular Therapy Agents morphine 15 mg immediate release tablet 10-28 00:00: 00 Yes [id number] MODERATE PAIN 1 tablet EVERY 6 HOURS 1 tablet EVERY 6 HOURS (route: oral) Med Classific ation: Analgesic , Anti-infl ammatory or Antipyret ic omeprazole 20 mg capsule,del ayed release 10-28 00:00: 00 Yes [id number] GERD 1 capsule DAILY 1 capsule DAILY (route: oral) Med Classific ation: Gastroint estinal Therapy Agents prednisone 10 mg tablet 10-28 00:00: 00 Yes [id number] POLYMYALGIA 1 tablet DAILY 1 tablet DAILY (route: oral) Med Classific ation: Endocrine Tresiba FlexTouch U-100 insulin 100 unit/mL (3 mL) subcutaneou s pen 10-28 00:00: 00 Yes [id number] DIABETES 15 unit BEDTIME 15 unit BEDTIME (route: subcutaneo us) Med Classific ation: Endocrine naproxen 500 mg tablet 10-28 00:00: 00 Yes [id number] PAIN 1 tablet 2 TIMES DAILY 1 tablet 2 TIMES DAILY (route: oral) Med Classific ation: Analgesic , Anti-infl ammatory or Antipyret ic naproxen 500 mg tablet 11-18 00:00: 00 12-18 23:59 :00 No [id number] PAIN 1 tablet 2 TIMES DAILY 1 tablet 2 TIMES DAILY (route: oral) Med Classific ation: Analgesic , Anti-infl ammatory or Antipyret ic oxycodone 5 mg tablet 11-18 00:00: 00 Yes [id number] PAIN 1 tablet DAILY 1 tablet DAILY (route: oral) Med Classific ation: Analgesic , Anti-infl ammatory or Antipyret ic tramadol 50 mg tablet 12-18 00:00: 00 Yes [id number] SEVERE PAIN 1 tablet 3 TIMES DAILY [...] TO EVALUATE, OBSERVE / ASSESS, AND MONITOR, CANCER PROGRAM CONSULTANT TO OBSERVE AND MONITOR, PROVIDE SKILLED THERAPEUTIC INTERVENTION, ACTIVITY, EDUCATION, AND TRAINING TO ADDRESS; [code = AGENCY MAY PERFORM A RESUMPTION OF CARE VISIT FOLLOWING ANY HOSPITAL ADMISSION. PT TO EVALUATE, OBSERVE / ASSESS, AND MONITOR, CANCER PROGRAM CONSULTANT TO OBSERVE AND MONITOR, PROVIDE SKILLED THERAPEUTIC INTERVENTION, ACTIVITY, EDUCATION, AND TRAINING TO ADDRESS;] Future Scheduled Test PT/CANCER PROGRAM CONSULTANT TO PROVIDE GAIT TRAINING FOR IMPROVED MOBILITY AND /OR TO NORMALIZE GAIT PATTERN [code = PT/CANCER PROGRAM CONSULTANT TO PROVIDE GAIT TRAINING FOR IMPROVED MOBILITY AND /OR TO NORMALIZE GAIT PATTERN] Future Scheduled Test PT/CANCER PROGRAM CONSULTANT TO PROVIDE STAIR TRAINING [code = PT/CANCER PROGRAM CONSULTANT TO PROVIDE STAIR TRAINING] Future Scheduled Test NEUROMUSCU LAR RE-EDUCATION / BALANCE / POSTURAL CONTROL (PT) [code = NEUROMUSCULAR RE-EDUCATION / BALANCE / POSTURAL CONTROL (PT)] Future Scheduled Test THERAPEUTI C EXERCISES AND ESTABLISHING A HOME EXERCISE PROGRAM (PT/CANCER PROGRAM CONSULTANT) [code = THERAPEUTIC EXERCISES AND ESTABLISHING A HOME EXERCISE PROGRAM (PT/CANCER PROGRAM CONSULTANT)] Future Scheduled Test PT/CANCER PROGRAM CONSULTANT TO IDENTIFY FALL RISK FACTORS; EDUCATE THE PATIENT/CAREGIVER ON WAYS TO REDUCE FALL RISK FACTORS AND ESTABLISH HOME EXERCISE PROGRAM TO MINIMIZE FALL RISK. MAY TEACH THE PATIENT FLOOR RECOVERY WHEN CLINICALLY APPROPRIATE [code = PT/CANCER PROGRAM CONSULTANT TO IDENTIFY FALL RISK FACTORS; EDUCATE THE PATIENT/CAREGIVER ON WAYS TO REDUCE FALL RISK FACTORS AND ESTABLISH HOME EXERCISE PROGRAM TO MINIMIZE FALL RISK. MAY TEACH THE PATIENT FLOOR RECOVERY WHEN CLINICALLY APPROPRIATE] Future Scheduled Test PT/CANCER PROGRAM CONSULTANT TO EDUCATE ON ARTHRITIS SELF-MANAGEMENT PT/CANCER PROGRAM CONSULTANT MAY TEACH PATIENT APPLICATION OF CRYOTHERAPY/ HEAT FOR PAIN / SWELLING UP TO 20 MIN AT A TIME [code = PT/CANCER PROGRAM CONSULTANT TO EDUCATE ON ARTHRITIS SELF-MANAGEMENT PT/CANCER PROGRAM CONSULTANT MAY TEACH PATIENT APPLICATION OF CRYOTHERAPY/ HEAT FOR PAIN / SWELLING UP TO 20 MIN AT A TIME] Future Scheduled Test PT / CANCER PROGRAM CONSULTANT M AY EDUCATE ON PAIN MANAGEMENT CLINICALLY INDICATED, INCLUDING NON-PHARMACOLOGICAL PAIN REDUCTION TECHNIQUES AND USE OF CRYOTHERAPY OR HEAT UP TO 20 MIN AT A TIME FOR PAIN MANAGEMENT [code = PT / CANCER PROGRAM CONSULTANT MAY EDUCATE ON PAIN MANAGEMENT CLINICALLY INDICATED, INCLUDING NON-PHARMACOLOGICAL PAIN REDUCTION TECHNIQUES AND USE OF CRYOTHERAPY OR HEAT UP TO 20 MIN AT A TIME FOR PAIN MANAGEMENT] Future Scheduled Test PT / CANCER PROGRAM CONSULTANT T O MONITOR FOR HYPO/HYPERGLYCEMIA AND CONDUCT ROUTINE FOOT INSPECTIONS. RECORD PATIENT REPORTED BLOOD SUGAR LEVELS AND NOTIFY PHYSICIAN AND/OR THE RN CLINICAL MAIL LIST LIBRARIAN FOR PHYSICIAN NOTIFICATION IF BLOOD SUGAR LEVELS ARE OUTSIDE ORDERED PARAMETERS. TEACH PATIENT/CAREGIVER ON DAILY FOOT INSPECTIONS [code = PT / CANCER PROGRAM CONSULTANT TO MONITOR FOR HYPO/HYPERGLYCEMIA AND CONDUCT ROUTINE FOOT INSPECTIONS. RECORD PATIENT REPORTED BLOOD SUGAR LEVELS AND NOTIFY PHYSICIAN AND/OR THE RN CLINICAL MAIL LIST LIBRARIAN FOR PHYSICIAN NOTIFICATION IF BLOOD SUGAR LEVELS [...] PANKAJ HASSAN [facility] [id number] 0.00
--- OUTSIDE RECORDS SUMMARY | 2025-04-24 19:00 | XMS_ITS | Clinical Summary ---
Author Organization Unknown Care Team Providers Care Insurance Underwriter Sales Name Role Phone PO PRAKASH KIRAN Unavailable Unavaila ble F[employer] TOOL MACHINE SHOP SUPERVISOR, PHUONG Unavailable Unavailable KOREY RN, ALLY Unavailable Unavailable KEENA PT, PANKAJ Unavailable Unavailable Payers Payer Name Policy Type Policy Number Effective Date Expira tion Date MEDICARE.[facility] [id number] Problems Condition Name Condition Details Condition Category [...] HYPERCHOLEST EROLEMIA, UNSPECIFIED Active 10-28 00:00: 00 RETIREMENT (CURRENT) USE OF INSULIN Active 10-28 00:00: 00 PROGRAMMING MANAGER (CURRENT) USE OF SYSTEMIC STEROIDS Active 10-28 00:00: 00 PROGRAMMING MANAGER (CURRENT) USE OF OPIATE ANALGESIC Active [...] 10-27 00:00: 00 10-28 00:00 :00 No [id number] Per instruc tions Per instructio ns (route: oral) Med Classific ation: Analgesic , Anti-infl ammatory or Antipyret ic Dexcom G6 Sensor device 10-26 00:00: 00 10-28 00:00 :00 No [id number] Unavailable Per instruc tions Per instructio ns (route: miscellane ous) Med Classific ation: Medical Supplies and Durable Medical Equipment (DME) gabapentin 100 mg capsule 10-21 00:00: 00 10-28 00:00 :00 No [id number] Per instruc tions Per instructio ns (route: oral) Med Classific ation: Central Nervous System Agents amlodipine 10 mg tablet 10-19 00:00: 00 10-28 00:00 :00 No [id number] ESSENTIAL (PRIMARY) HYPERTENSIO N Per instruc tions DAILY Per instructio ns DAILY (route: oral) Med Classific ation: Cardiovas cular Therapy Agents Carin 2nd Gen Pen Needle 32 gauge x 5/32 10-19 00:00: 00 10-28 00:00 :00 No [id number] Per instruc tions INSULIN 5 TIMES DAILY Per instructio ns INSULIN 5 TIMES DAILY (route: miscellane ous) Med Classific ation: Medical Supplies and Durable Medical Equipment (DME) lisinopril 40 mg tablet 10-19 00:00: 00 10-28 00:00 :00 No [id number] ESSENTIAL (PRIMARY) HYPERTENSIO N Per instruc tions DAILY Per instructio ns DAILY (route: oral) Med Classific ation: Cardiovas cular Therapy Agents baclofen 10 mg tablet 10-15 00:00: 00 10-28 00:00 :00 No [id number] Per instruc tions Per instructio ns (route: oral) Med Classific ation: Locomotor System tramadol 50 mg tablet 10-15 00:00: 00 10-28 00:00 :00 No [id number] Per instruc tions Per instructio ns (route: oral) Med Classific ation: Analgesic , Anti-infl ammatory or Antipyret ic amoxicillin 875 mg tablet 10-13 00:00: 00 10-28 00:00 :00 No [id number] Per instruc tions Per instructio ns (route: oral) Med Classific ation: Anti-Infe ctive Agents chlorhexidi ne gluconate 0.12 % mouthwash 10-13 00:00: 00 10-28 00:00 :00 No [id number] Per instruc tions Per instructio ns (route: mucous membrane) Med Classific ation: Mouth-Thr oat-Denta l - Preparati ons cyclobenzap rine 10 mg tablet 10-09 00:00: 00 10-28 00:00 :00 No [id number] Per instruc tions Per instructio ns (route: oral) Med Classific ation: Locomotor System tadalafil 10 mg tablet 10-08 00:00: 00 10-28 00:00 :00 No [id number] MALE ERECTILE DYSFUNCTION , UNSPECIFIED Per instruc tions EVERY OTHER DAY NEEDED FOR SEXUAL ACTIVITY APPROXIMAT GONZALEZ 30 MINUTES PER 24 HOURS Per instructio ns EVERY OTHER DAY NEEDED FOR SEXUAL ACTIVITY APPROXIMAT GONZALEZ 30 MINUTES PER 24 HOURS (route: oral) Med Classific ation: Drugs to treat Erectile Dysfuncti on Ketostix strips 10-05 00:00: 00 10-28 00:00 :00 No [id number] 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 Per instruc tions AND DISCARD 1 TEST STRIP EVERY DAY NEEDED Per instructio ns AND DISCARD 1 TEST STRIP EVERY DAY NEEDED (route: miscellane ous) Med Classific ation: Medical Supplies and Durable Medical Equipment (DME) acetaminoph en 325 mg tablet 10-28 00:00: 00 Yes [id number] PAIN 2 tablet EVERY 4 HOURS 2 tablet EVERY 4 HOURS (route: oral) Med Classific ation: Analgesic , Anti-infl ammatory or Antipyret ic amlodipine 10 mg tablet 10-28 00:00: 00 Yes [id number] LOWERS BLOOD PRESSURE 1 tablet DAILY 1 tablet DAILY (route: oral) Med Classific ation: Cardiovas cular Therapy Agents atorvastati n 20 mg tablet 10-28 00:00: 00 Yes [id number] LOWERS CHOLESTEROL 1 tablet DAILY 1 tablet DAILY (route: oral) Med Classific ation: Cardiovas cular Therapy Agents cholecalcif swapna (vitamin D3) 25 mcg (1,000 unit) tablet 10-28 00:00: 00 Yes [id number] SUPPLEMENT 1 tablet DAILY 1 tablet DAILY (route: oral) Med Classific ation: Electroly te Balance-N utritiona l Products gabapentin 100 mg tablet 10-28 00:00: 00 Yes [id number] PAIN MANAGEMENT 1 tablet BEDTIME 1 tablet BEDTIME (route: oral) Med Classific ation: Central Nervous System Agents hydrochloro thiazide 12.5 mg tablet 10-28 00:00: 00 Yes [id number] FLUID RETENTION 1 tablet DAILY 1 tablet DAILY (route: oral) Med Classific ation: Cardiovas cular Therapy Agents insulin lispro (U-100) 100 unit/mL subcutaneou s pen 10-28 00:00: 00 Yes [id number] DIABETES Per instruc tions WITH MEALS Per instructio ns WITH MEALS (route: subcutaneo ) Med Classific ation: Endocrine lisinopril 40 mg tablet 10-28 00:00: 00 Yes [id number] LOWERS BLOOD PRESSURE 1 tablet DAILY 1 tablet DAILY (route: oral) Med Classific ation: Cardiovas cular Therapy Agents morphine 15 mg immediate release tablet 10-28 00:00: 00 Yes [id number] MODERATE PAIN 1 tablet EVERY 6 HOURS 1 tablet EVERY 6 HOURS (route: oral) Med Classific ation: Analgesic , Anti-infl ammatory or Antipyret ic omeprazole 20 mg capsule,del ayed release 10-28 00:00: 00 Yes [id number] GERD 1 capsule DAILY 1 capsule DAILY (route: oral) Med Classific ation: Gastroint estinal Therapy Agents prednisone 10 mg tablet 10-28 00:00: 00 Yes [id number] POLYMYALGIA 1 tablet DAILY 1 tablet DAILY (route: oral) Med Classific ation: Endocrine Tresiba FlexTouch U-100 insulin 100 unit/mL (3 mL) subcutaneou s pen 10-28 00:00: 00 Yes [id number] DIABETES 15 unit BEDTIME 15 unit BEDTIME (route: subcutaneo us) Med Classific ation: Endocrine naproxen 500 mg tablet 10-28 00:00: 00 Yes [id number] PAIN 1 tablet 2 TIMES DAILY 1 tablet 2 TIMES DAILY (route: oral) Med Classific ation: Analgesic , Anti-infl ammatory or Antipyret ic naproxen 500 mg tablet 11-18 00:00: 00 12-18 23:59 :00 No [id number] PAIN 1 tablet 2 TIMES DAILY 1 tablet 2 TIMES DAILY (route: oral) Med Classific ation: Analgesic , Anti-infl ammatory or Antipyret ic oxycodone 5 mg tablet 11-18 00:00: 00 Yes [id number] PAIN 1 tablet DAILY 1 tablet DAILY (route: oral) Med Classific ation: Analgesic , Anti-infl ammatory or Antipyret ic tramadol 50 mg tablet 12-18 00:00: 00 Yes [id number] SEVERE PAIN 1 tablet 3 TIMES DAILY [...] TO EVALUATE, OBSERVE / ASSESS, AND MONITOR, TOOL MACHINE SHOP SUPERVISOR TO OBSERVE AND MONITOR, PROVIDE SKILLED THERAPEUTIC INTERVENTION, ACTIVITY, EDUCATION, AND TRAINING TO ADDRESS; [code = AGENCY MAY PERFORM A RESUMPTION OF CARE VISIT FOLLOWING ANY HOSPITAL ADMISSION. PT TO EVALUATE, OBSERVE / ASSESS, AND MONITOR, TOOL MACHINE SHOP SUPERVISOR TO OBSERVE AND MONITOR, PROVIDE SKILLED THERAPEUTIC INTERVENTION, ACTIVITY, EDUCATION, AND TRAINING TO ADDRESS;] Future Scheduled Test PT/TOOL MACHINE SHOP SUPERVISOR TO PROVIDE GAIT TRAINING FOR IMPROVED MOBILITY AND /OR TO NORMALIZE GAIT PATTERN [code = PT/TOOL MACHINE SHOP SUPERVISOR TO PROVIDE GAIT TRAINING FOR IMPROVED MOBILITY AND /OR TO NORMALIZE GAIT PATTERN] Future Scheduled Test PT/TOOL MACHINE SHOP SUPERVISOR TO PROVIDE STAIR TRAINING [code = PT/TOOL MACHINE SHOP SUPERVISOR TO PROVIDE STAIR TRAINING] Future Scheduled Test NEUROMUSCU LAR RE-EDUCATION / BALANCE / POSTURAL CONTROL (PT) [code = NEUROMUSCULAR RE-EDUCATION / BALANCE / POSTURAL CONTROL (PT)] Future Scheduled Test THERAPEUTI C EXERCISES AND ESTABLISHING A HOME EXERCISE PROGRAM (PT/TOOL MACHINE SHOP SUPERVISOR) [code = THERAPEUTIC EXERCISES AND ESTABLISHING A HOME EXERCISE PROGRAM (PT/TOOL MACHINE SHOP SUPERVISOR)] Future Scheduled Test PT/TOOL MACHINE SHOP SUPERVISOR TO IDENTIFY FALL RISK FACTORS; EDUCATE THE PATIENT/CAREGIVER ON WAYS TO REDUCE FALL RISK FACTORS AND ESTABLISH HOME EXERCISE PROGRAM TO MINIMIZE FALL RISK. MAY TEACH THE PATIENT FLOOR RECOVERY WHEN CLINICALLY APPROPRIATE [code = PT/TOOL MACHINE SHOP SUPERVISOR TO IDENTIFY FALL RISK FACTORS; EDUCATE THE PATIENT/CAREGIVER ON WAYS TO REDUCE FALL RISK FACTORS AND ESTABLISH HOME EXERCISE PROGRAM TO MINIMIZE FALL RISK. MAY TEACH THE PATIENT FLOOR RECOVERY WHEN CLINICALLY APPROPRIATE] Future Scheduled Test PT/TOOL MACHINE SHOP SUPERVISOR TO EDUCATE ON ARTHRITIS SELF-MANAGEMENT PT/TOOL MACHINE SHOP SUPERVISOR MAY TEACH PATIENT APPLICATION OF CRYOTHERAPY/ HEAT FOR PAIN / SWELLING UP TO 20 MIN AT A TIME [code = PT/TOOL MACHINE SHOP SUPERVISOR TO EDUCATE ON ARTHRITIS SELF-MANAGEMENT PT/TOOL MACHINE SHOP SUPERVISOR MAY TEACH PATIENT APPLICATION OF CRYOTHERAPY/ HEAT FOR PAIN / SWELLING UP TO 20 MIN AT A TIME] Future Scheduled Test PT / TOOL MACHINE SHOP SUPERVISOR M AY EDUCATE ON PAIN MANAGEMENT CLINICALLY INDICATED, INCLUDING NON-PHARMACOLOGICAL PAIN REDUCTION TECHNIQUES AND USE OF CRYOTHERAPY OR HEAT UP TO 20 MIN AT A TIME FOR PAIN MANAGEMENT [code = PT / TOOL MACHINE SHOP SUPERVISOR MAY EDUCATE ON PAIN MANAGEMENT CLINICALLY INDICATED, INCLUDING NON-PHARMACOLOGICAL PAIN REDUCTION TECHNIQUES AND USE OF CRYOTHERAPY OR HEAT UP TO 20 MIN AT A TIME FOR PAIN MANAGEMENT] Future Scheduled Test PT / TOOL MACHINE SHOP SUPERVISOR T O MONITOR FOR HYPO/HYPERGLYCEMIA AND CONDUCT ROUTINE FOOT INSPECTIONS. RECORD PATIENT REPORTED BLOOD SUGAR LEVELS AND NOTIFY PHYSICIAN AND/OR THE RN CLINICAL OPERATIONS OFFICER TRUST DEPARTMENT FOR PHYSICIAN NOTIFICATION IF BLOOD SUGAR LEVELS ARE OUTSIDE ORDERED PARAMETERS. TEACH PATIENT/CAREGIVER ON DAILY FOOT INSPECTIONS [code = PT / TOOL MACHINE SHOP SUPERVISOR TO MONITOR FOR HYPO/HYPERGLYCEMIA AND CONDUCT ROUTINE FOOT INSPECTIONS. RECORD PATIENT REPORTED BLOOD SUGAR LEVELS AND NOTIFY PHYSICIAN AND/OR THE RN CLINICAL OPERATIONS OFFICER TRUST DEPARTMENT FOR PHYSICIAN NOTIFICATION IF BLOOD SUGAR LEVELS [...] Date/Time Encounter Type Admission Type Attending [facility] Facility Care Department Encounter ID Discharge Date Discharge Status Discharge Condition Discharge Reason Percent Goals Met 2025-02-25 00:00:00 2025-04-25 00:00:00 Outpatient RECERTIFIC PANKAJ HASSAN [facility] [id number] [id number]
--- OUTSIDE RECORDS SUMMARY | 2025-04-24 19:00 | XMS_ITS | Clinical Summary ---
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 Active 10-28 00:00: 00 OPERATIONS ARCHITECT (CURRENT) USE OF OPIATE ANALGESIC Active 10-28 [...] 10-27 00:00: 00 10-28 00:00 :00 No [id number] Per instruc tions Per instructio ns (route: oral) Med Classific ation: Analgesic , Anti-infl ammatory or Antipyret ic Dexcom G6 Sensor device 10-26 00:00: 00 10-28 00:00 :00 No [id number] Unavailable Per instruc tions Per instructio ns (route: miscellane ous) Med Classific ation: Medical Supplies and Durable Medical Equipment (DME) gabapentin 100 mg capsule 10-21 00:00: 00 10-28 00:00 :00 No [id number] Per instruc tions Per instructio ns (route: oral) Med Classific ation: Central Nervous System Agents amlodipine 10 mg tablet 10-19 00:00: 00 10-28 00:00 :00 No [id number] ESSENTIAL (PRIMARY) HYPERTENSIO N Per instruc tions DAILY Per instructio ns DAILY (route: oral) Med Classific ation: Cardiovas cular Therapy Agents Carin 2nd Gen Pen Needle 32 gauge x 5/32 10-19 00:00: 00 10-28 00:00 :00 No [id number] Per instruc tions INSULIN 5 TIMES DAILY Per instructio ns INSULIN 5 TIMES DAILY (route: miscellane ous) Med Classific ation: Medical Supplies and Durable Medical Equipment (DME) lisinopril 40 mg tablet 10-19 00:00: 00 10-28 00:00 :00 No [id number] ESSENTIAL (PRIMARY) HYPERTENSIO N Per instruc tions DAILY Per instructio ns DAILY (route: oral) Med Classific ation: Cardiovas cular Therapy Agents baclofen 10 mg tablet 10-15 00:00: 00 10-28 00:00 :00 No [id number] Per instruc tions Per instructio ns (route: oral) Med Classific ation: Locomotor System tramadol 50 mg tablet 10-15 00:00: 00 10-28 00:00 :00 No [id number] Per instruc tions Per instructio ns (route: oral) Med Classific ation: Analgesic , Anti-infl ammatory or Antipyret ic amoxicillin 875 mg tablet 10-13 00:00: 00 10-28 00:00 :00 No [id number] Per instruc tions Per instructio ns (route: oral) Med Classific ation: Anti-Infe ctive Agents chlorhexidi ne gluconate 0.12 % mouthwash 10-13 00:00: 00 10-28 00:00 :00 No [id number] Per instruc tions Per instructio ns (route: mucous membrane) Med Classific ation: Mouth-Thr oat-Denta l - Preparati ons cyclobenzap rine 10 mg tablet 10-09 00:00: 00 10-28 00:00 :00 No [id number] Per instruc tions Per instructio ns (route: oral) Med Classific ation: Locomotor System tadalafil 10 mg tablet 10-08 00:00: 00 10-28 00:00 :00 No [id number] MALE ERECTILE DYSFUNCTION , UNSPECIFIED Per instruc tions EVERY OTHER DAY NEEDED FOR SEXUAL ACTIVITY APPROXIMAT GONZALEZ 30 MINUTES PER 24 HOURS Per instructio ns EVERY OTHER DAY NEEDED FOR SEXUAL ACTIVITY APPROXIMAT GONZALEZ 30 MINUTES PER 24 HOURS (route: oral) Med Classific ation: Drugs to treat Erectile Dysfuncti on Ketostix strips 10-05 00:00: 00 10-28 00:00 :00 No [id number] 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 Per instruc tions AND DISCARD 1 TEST STRIP EVERY DAY NEEDED Per instructio ns AND DISCARD 1 TEST STRIP EVERY DAY NEEDED (route: miscellane ous) Med Classific ation: Medical Supplies and Durable Medical Equipment (DME) acetaminoph en 325 mg tablet 10-28 00:00: 00 Yes [id number] PAIN 2 tablet EVERY 4 HOURS 2 tablet EVERY 4 HOURS (route: oral) Med Classific ation: Analgesic , Anti-infl ammatory or Antipyret ic amlodipine 10 mg tablet 10-28 00:00: 00 Yes [id number] LOWERS BLOOD PRESSURE 1 tablet DAILY 1 tablet DAILY (route: oral) Med Classific ation: Cardiovas cular Therapy Agents atorvastati n 20 mg tablet 10-28 00:00: 00 Yes [id number] LOWERS CHOLESTEROL 1 tablet DAILY 1 tablet DAILY (route: oral) Med Classific ation: Cardiovas cular Therapy Agents cholecalcif swapna (vitamin D3) 25 mcg (1,000 unit) tablet 10-28 00:00: 00 Yes [id number] SUPPLEMENT 1 tablet DAILY 1 tablet DAILY (route: oral) Med Classific ation: Electroly te Balance-N utritiona l Products gabapentin 100 mg tablet 10-28 00:00: 00 Yes [id number] PAIN MANAGEMENT 1 tablet BEDTIME 1 tablet BEDTIME (route: oral) Med Classific ation: Central Nervous System Agents hydrochloro thiazide 12.5 mg tablet 10-28 00:00: 00 Yes [id number] FLUID RETENTION 1 tablet DAILY 1 tablet DAILY (route: oral) Med Classific ation: Cardiovas cular Therapy Agents insulin lispro (U-100) 100 unit/mL subcutaneou s pen 10-28 00:00: 00 Yes [id number] DIABETES Per instruc tions WITH MEALS Per instructio ns WITH MEALS (route: subcutaneo ) Med Classific ation: Endocrine lisinopril 40 mg tablet 10-28 00:00: 00 Yes [id number] LOWERS BLOOD PRESSURE 1 tablet DAILY 1 tablet DAILY (route: oral) Med Classific ation: Cardiovas cular Therapy Agents morphine 15 mg immediate release tablet 10-28 00:00: 00 Yes [id number] MODERATE PAIN 1 tablet EVERY 6 HOURS 1 tablet EVERY 6 HOURS (route: oral) Med Classific ation: Analgesic , Anti-infl ammatory or Antipyret ic omeprazole 20 mg capsule,del ayed release 10-28 00:00: 00 Yes [id number] GERD 1 capsule DAILY 1 capsule DAILY (route: oral) Med Classific ation: Gastroint estinal Therapy Agents prednisone 10 mg tablet 10-28 00:00: 00 Yes [id number] POLYMYALGIA 1 tablet DAILY 1 tablet DAILY (route: oral) Med Classific ation: Endocrine Tresiba FlexTouch U-100 insulin 100 unit/mL (3 mL) subcutaneou s pen 10-28 00:00: 00 Yes [id number] DIABETES 15 unit BEDTIME 15 unit BEDTIME (route: subcutaneo us) Med Classific ation: Endocrine naproxen 500 mg tablet 10-28 00:00: 00 Yes [id number] PAIN 1 tablet 2 TIMES DAILY 1 tablet 2 TIMES DAILY (route: oral) Med Classific ation: Analgesic , Anti-infl ammatory or Antipyret ic naproxen 500 mg tablet 11-18 00:00: 00 12-18 23:59 :00 No [id number] PAIN 1 tablet 2 TIMES DAILY 1 tablet 2 TIMES DAILY (route: oral) Med Classific ation: Analgesic , Anti-infl ammatory or Antipyret ic oxycodone 5 mg tablet 11-18 00:00: 00 Yes [id number] PAIN 1 tablet DAILY 1 tablet DAILY (route: oral) Med Classific ation: Analgesic , Anti-infl ammatory or Antipyret ic tramadol 50 mg tablet 12-18 00:00: 00 Yes [id number] SEVERE PAIN 1 tablet 3 TIMES DAILY [...] TO EVALUATE, OBSERVE / ASSESS, AND MONITOR, MANUAL WRITER TO OBSERVE AND MONITOR, PROVIDE SKILLED THERAPEUTIC INTERVENTION, ACTIVITY, EDUCATION, AND TRAINING TO ADDRESS; [code = AGENCY MAY PERFORM A RESUMPTION OF CARE VISIT FOLLOWING ANY HOSPITAL ADMISSION. PT TO EVALUATE, OBSERVE / ASSESS, AND MONITOR, MANUAL WRITER TO OBSERVE AND MONITOR, PROVIDE SKILLED THERAPEUTIC INTERVENTION, ACTIVITY, EDUCATION, AND TRAINING TO ADDRESS;] Future Scheduled Test PT/MANUAL WRITER TO PROVIDE GAIT TRAINING FOR IMPROVED MOBILITY AND /OR TO NORMALIZE GAIT PATTERN [code = PT/MANUAL WRITER TO PROVIDE GAIT TRAINING FOR IMPROVED MOBILITY AND /OR TO NORMALIZE GAIT PATTERN] Future Scheduled Test PT/MANUAL WRITER TO PROVIDE STAIR TRAINING [code = PT/MANUAL WRITER TO PROVIDE STAIR TRAINING] Future Scheduled Test NEUROMUSCU LAR RE-EDUCATION / BALANCE / POSTURAL CONTROL (PT) [code = NEUROMUSCULAR RE-EDUCATION / BALANCE / POSTURAL CONTROL (PT)] Future Scheduled Test THERAPEUTI C EXERCISES AND ESTABLISHING A HOME EXERCISE PROGRAM (PT/MANUAL WRITER) [code = THERAPEUTIC EXERCISES AND ESTABLISHING A HOME EXERCISE PROGRAM (PT/MANUAL WRITER)] Future Scheduled Test PT/MANUAL WRITER TO IDENTIFY FALL RISK FACTORS; EDUCATE THE PATIENT/CAREGIVER ON WAYS TO REDUCE FALL RISK FACTORS AND ESTABLISH HOME EXERCISE PROGRAM TO MINIMIZE FALL RISK. MAY TEACH THE PATIENT FLOOR RECOVERY WHEN CLINICALLY APPROPRIATE [code = PT/MANUAL WRITER TO IDENTIFY FALL RISK FACTORS; EDUCATE THE PATIENT/CAREGIVER ON WAYS TO REDUCE FALL RISK FACTORS AND ESTABLISH HOME EXERCISE PROGRAM TO MINIMIZE FALL RISK. MAY TEACH THE PATIENT FLOOR RECOVERY WHEN CLINICALLY APPROPRIATE] Future Scheduled Test PT/MANUAL WRITER TO EDUCATE ON ARTHRITIS SELF-MANAGEMENT PT/MANUAL WRITER MAY TEACH PATIENT APPLICATION OF CRYOTHERAPY/ HEAT FOR PAIN / SWELLING UP TO 20 MIN AT A TIME [code = PT/MANUAL WRITER TO EDUCATE ON ARTHRITIS SELF-MANAGEMENT PT/MANUAL WRITER MAY TEACH PATIENT APPLICATION OF CRYOTHERAPY/ HEAT FOR PAIN / SWELLING UP TO 20 MIN AT A TIME] Future Scheduled Test PT / MANUAL WRITER M AY EDUCATE ON PAIN MANAGEMENT CLINICALLY INDICATED, INCLUDING NON-PHARMACOLOGICAL PAIN REDUCTION TECHNIQUES AND USE OF CRYOTHERAPY OR HEAT UP TO 20 MIN AT A TIME FOR PAIN MANAGEMENT [code = PT / MANUAL WRITER MAY EDUCATE ON PAIN MANAGEMENT CLINICALLY INDICATED, INCLUDING NON-PHARMACOLOGICAL PAIN REDUCTION TECHNIQUES AND USE OF CRYOTHERAPY OR HEAT UP TO 20 MIN AT A TIME FOR PAIN MANAGEMENT] Future Scheduled Test PT / MANUAL WRITER T O MONITOR FOR HYPO/HYPERGLYCEMIA AND CONDUCT ROUTINE FOOT INSPECTIONS. RECORD PATIENT REPORTED BLOOD SUGAR LEVELS AND NOTIFY PHYSICIAN AND/OR THE RN CLINICAL BICYCLE TAXI DRIVER FOR PHYSICIAN NOTIFICATION IF BLOOD SUGAR LEVELS ARE OUTSIDE ORDERED PARAMETERS. TEACH PATIENT/CAREGIVER ON DAILY FOOT INSPECTIONS [code = PT / MANUAL WRITER TO MONITOR FOR HYPO/HYPERGLYCEMIA AND CONDUCT ROUTINE FOOT INSPECTIONS. RECORD PATIENT REPORTED BLOOD SUGAR LEVELS AND NOTIFY PHYSICIAN AND/OR THE RN CLINICAL BICYCLE TAXI DRIVER FOR PHYSICIAN NOTIFICATION IF BLOOD SUGAR LEVELS [...] 00:00:00 Outpatient RECERTIFIC PANKAJ HASSAN [facility] [id number] 0.00
--- OUTSIDE RECORDS SUMMARY | 2025-04-24 19:00 | XMS_ITS | Clinical Summary ---
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 STEROIDS Active 10-28 00:00: 00 GANTRY RIGGER (CURRENT) USE OF OPIATE ANALGESIC Active 10-28 [...] 10-27 00:00: 00 10-28 00:00 :00 No [id number] Per instruc tions Per instructio ns (route: oral) Med Classific ation: Analgesic , Anti-infl ammatory or Antipyret ic Dexcom G6 Sensor device 10-26 00:00: 00 10-28 00:00 :00 No [id number] Unavailable Per instruc tions Per instructio ns (route: miscellane ous) Med Classific ation: Medical Supplies and Durable Medical Equipment (DME) gabapentin 100 mg capsule 10-21 00:00: 00 10-28 00:00 :00 No [id number] Per instruc tions Per instructio ns (route: oral) Med Classific ation: Central Nervous System Agents amlodipine 10 mg tablet 10-19 00:00: 00 10-28 00:00 :00 No [id number] ESSENTIAL (PRIMARY) HYPERTENSIO N Per instruc tions DAILY Per instructio ns DAILY (route: oral) Med Classific ation: Cardiovas cular Therapy Agents Carin 2nd Gen Pen Needle 32 gauge x 5/32 10-19 00:00: 00 10-28 00:00 :00 No [id number] Per instruc tions INSULIN 5 TIMES DAILY Per instructio ns INSULIN 5 TIMES DAILY (route: miscellane ous) Med Classific ation: Medical Supplies and Durable Medical Equipment (DME) lisinopril 40 mg tablet 10-19 00:00: 00 10-28 00:00 :00 No [id number] ESSENTIAL (PRIMARY) HYPERTENSIO N Per instruc tions DAILY Per instructio ns DAILY (route: oral) Med Classific ation: Cardiovas cular Therapy Agents baclofen 10 mg tablet 10-15 00:00: 00 10-28 00:00 :00 No [id number] Per instruc tions Per instructio ns (route: oral) Med Classific ation: Locomotor System tramadol 50 mg tablet 10-15 00:00: 00 10-28 00:00 :00 No [id number] Per instruc tions Per instructio ns (route: oral) Med Classific ation: Analgesic , Anti-infl ammatory or Antipyret ic amoxicillin 875 mg tablet 10-13 00:00: 00 10-28 00:00 :00 No [id number] Per instruc tions Per instructio ns (route: oral) Med Classific ation: Anti-Infe ctive Agents chlorhexidi ne gluconate 0.12 % mouthwash 10-13 00:00: 00 10-28 00:00 :00 No [id number] Per instruc tions Per instructio ns (route: mucous membrane) Med Classific ation: Mouth-Thr oat-Denta l - Preparati ons cyclobenzap rine 10 mg tablet 10-09 00:00: 00 10-28 00:00 :00 No [id number] Per instruc tions Per instructio ns (route: oral) Med Classific ation: Locomotor System tadalafil 10 mg tablet 10-08 00:00: 00 10-28 00:00 :00 No [id number] MALE ERECTILE DYSFUNCTION , UNSPECIFIED Per instruc tions EVERY OTHER DAY NEEDED FOR SEXUAL ACTIVITY APPROXIMAT GONZALEZ 30 MINUTES PER 24 HOURS Per instructio ns EVERY OTHER DAY NEEDED FOR SEXUAL ACTIVITY APPROXIMAT GONZALEZ 30 MINUTES PER 24 HOURS (route: oral) Med Classific ation: Drugs to treat Erectile Dysfuncti on Ketostix strips 10-05 00:00: 00 10-28 00:00 :00 No [id number] 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 Per instruc tions AND DISCARD 1 TEST STRIP EVERY DAY NEEDED Per instructio ns AND DISCARD 1 TEST STRIP EVERY DAY NEEDED (route: miscellane ous) Med Classific ation: Medical Supplies and Durable Medical Equipment (DME) acetaminoph en 325 mg tablet 10-28 00:00: 00 Yes [id number] PAIN 2 tablet EVERY 4 HOURS 2 tablet EVERY 4 HOURS (route: oral) Med Classific ation: Analgesic , Anti-infl ammatory or Antipyret ic amlodipine 10 mg tablet 10-28 00:00: 00 Yes [id number] LOWERS BLOOD PRESSURE 1 tablet DAILY 1 tablet DAILY (route: oral) Med Classific ation: Cardiovas cular Therapy Agents atorvastati n 20 mg tablet 10-28 00:00: 00 Yes [id number] LOWERS CHOLESTEROL 1 tablet DAILY 1 tablet DAILY (route: oral) Med Classific ation: Cardiovas cular Therapy Agents cholecalcif swapna (vitamin D3) 25 mcg (1,000 unit) tablet 10-28 00:00: 00 Yes [id number] SUPPLEMENT 1 tablet DAILY 1 tablet DAILY (route: oral) Med Classific ation: Electroly te Balance-N utritiona l Products gabapentin 100 mg tablet 10-28 00:00: 00 Yes [id number] PAIN MANAGEMENT 1 tablet BEDTIME 1 tablet BEDTIME (route: oral) Med Classific ation: Central Nervous System Agents hydrochloro thiazide 12.5 mg tablet 10-28 00:00: 00 Yes [id number] FLUID RETENTION 1 tablet DAILY 1 tablet DAILY (route: oral) Med Classific ation: Cardiovas cular Therapy Agents insulin lispro (U-100) 100 unit/mL subcutaneou s pen 10-28 00:00: 00 Yes [id number] DIABETES Per instruc tions WITH MEALS Per instructio ns WITH MEALS (route: subcutaneo ) Med Classific ation: Endocrine lisinopril 40 mg tablet 10-28 00:00: 00 Yes [id number] LOWERS BLOOD PRESSURE 1 tablet DAILY 1 tablet DAILY (route: oral) Med Classific ation: Cardiovas cular Therapy Agents morphine 15 mg immediate release tablet 10-28 00:00: 00 Yes [id number] MODERATE PAIN 1 tablet EVERY 6 HOURS 1 tablet EVERY 6 HOURS (route: oral) Med Classific ation: Analgesic , Anti-infl ammatory or Antipyret ic omeprazole 20 mg capsule,del ayed release 10-28 00:00: 00 Yes [id number] GERD 1 capsule DAILY 1 capsule DAILY (route: oral) Med Classific ation: Gastroint estinal Therapy Agents prednisone 10 mg tablet 10-28 00:00: 00 Yes [id number] POLYMYALGIA 1 tablet DAILY 1 tablet DAILY (route: oral) Med Classific ation: Endocrine Tresiba FlexTouch U-100 insulin 100 unit/mL (3 mL) subcutaneou s pen 10-28 00:00: 00 Yes [id number] DIABETES 15 unit BEDTIME 15 unit BEDTIME (route: subcutaneo us) Med Classific ation: Endocrine naproxen 500 mg tablet 10-28 00:00: 00 Yes [id number] PAIN 1 tablet 2 TIMES DAILY 1 tablet 2 TIMES DAILY (route: oral) Med Classific ation: Analgesic , Anti-infl ammatory or Antipyret ic naproxen 500 mg tablet 11-18 00:00: 00 12-18 23:59 :00 No [id number] PAIN 1 tablet 2 TIMES DAILY 1 tablet 2 TIMES DAILY (route: oral) Med Classific ation: Analgesic , Anti-infl ammatory or Antipyret ic oxycodone 5 mg tablet 11-18 00:00: 00 Yes [id number] PAIN 1 tablet DAILY 1 tablet DAILY (route: oral) Med Classific ation: Analgesic , Anti-infl ammatory or Antipyret ic tramadol 50 mg tablet 12-18 00:00: 00 Yes [id number] SEVERE PAIN 1 tablet 3 TIMES DAILY [...] TO EVALUATE, OBSERVE / ASSESS, AND MONITOR, WHANAU SUPPORT WORKER TO OBSERVE AND MONITOR, PROVIDE SKILLED THERAPEUTIC INTERVENTION, ACTIVITY, EDUCATION, AND TRAINING TO ADDRESS; [code = AGENCY MAY PERFORM A RESUMPTION OF CARE VISIT FOLLOWING ANY HOSPITAL ADMISSION. PT TO EVALUATE, OBSERVE / ASSESS, AND MONITOR, WHANAU SUPPORT WORKER TO OBSERVE AND MONITOR, PROVIDE SKILLED THERAPEUTIC INTERVENTION, ACTIVITY, EDUCATION, AND TRAINING TO ADDRESS;] Future Scheduled Test PT/WHANAU SUPPORT WORKER TO PROVIDE GAIT TRAINING FOR IMPROVED MOBILITY AND /OR TO NORMALIZE GAIT PATTERN [code = PT/WHANAU SUPPORT WORKER TO PROVIDE GAIT TRAINING FOR IMPROVED MOBILITY AND /OR TO NORMALIZE GAIT PATTERN] Future Scheduled Test PT/WHANAU SUPPORT WORKER TO PROVIDE STAIR TRAINING [code = PT/WHANAU SUPPORT WORKER TO PROVIDE STAIR TRAINING] Future Scheduled Test NEUROMUSCU LAR RE-EDUCATION / BALANCE / POSTURAL CONTROL (PT) [code = NEUROMUSCULAR RE-EDUCATION / BALANCE / POSTURAL CONTROL (PT)] Future Scheduled Test THERAPEUTI C EXERCISES AND ESTABLISHING A HOME EXERCISE PROGRAM (PT/WHANAU SUPPORT WORKER) [code = THERAPEUTIC EXERCISES AND ESTABLISHING A HOME EXERCISE PROGRAM (PT/WHANAU SUPPORT WORKER)] Future Scheduled Test PT/WHANAU SUPPORT WORKER TO IDENTIFY FALL RISK FACTORS; EDUCATE THE PATIENT/CAREGIVER ON WAYS TO REDUCE FALL RISK FACTORS AND ESTABLISH HOME EXERCISE PROGRAM TO MINIMIZE FALL RISK. MAY TEACH THE PATIENT FLOOR RECOVERY WHEN CLINICALLY APPROPRIATE [code = PT/WHANAU SUPPORT WORKER TO IDENTIFY FALL RISK FACTORS; EDUCATE THE PATIENT/CAREGIVER ON WAYS TO REDUCE FALL RISK FACTORS AND ESTABLISH HOME EXERCISE PROGRAM TO MINIMIZE FALL RISK. MAY TEACH THE PATIENT FLOOR RECOVERY WHEN CLINICALLY APPROPRIATE] Future Scheduled Test PT/WHANAU SUPPORT WORKER TO EDUCATE ON ARTHRITIS SELF-MANAGEMENT PT/WHANAU SUPPORT WORKER MAY TEACH PATIENT APPLICATION OF CRYOTHERAPY/ HEAT FOR PAIN / SWELLING UP TO 20 MIN AT A TIME [code = PT/WHANAU SUPPORT WORKER TO EDUCATE ON ARTHRITIS SELF-MANAGEMENT PT/WHANAU SUPPORT WORKER MAY TEACH PATIENT APPLICATION OF CRYOTHERAPY/ HEAT FOR PAIN / SWELLING UP TO 20 MIN AT A TIME] Future Scheduled Test PT / WHANAU SUPPORT WORKER M AY EDUCATE ON PAIN MANAGEMENT CLINICALLY INDICATED, INCLUDING NON-PHARMACOLOGICAL PAIN REDUCTION TECHNIQUES AND USE OF CRYOTHERAPY OR HEAT UP TO 20 MIN AT A TIME FOR PAIN MANAGEMENT [code = PT / WHANAU SUPPORT WORKER MAY EDUCATE ON PAIN MANAGEMENT CLINICALLY INDICATED, INCLUDING NON-PHARMACOLOGICAL PAIN REDUCTION TECHNIQUES AND USE OF CRYOTHERAPY OR HEAT UP TO 20 MIN AT A TIME FOR PAIN MANAGEMENT] Future Scheduled Test PT / WHANAU SUPPORT WORKER T O MONITOR FOR HYPO/HYPERGLYCEMIA AND CONDUCT ROUTINE FOOT INSPECTIONS. RECORD PATIENT REPORTED BLOOD SUGAR LEVELS AND NOTIFY PHYSICIAN AND/OR THE RN CLINICAL ENGRAVER TIRE MOLD FOR PHYSICIAN NOTIFICATION IF BLOOD SUGAR LEVELS ARE OUTSIDE ORDERED PARAMETERS. TEACH PATIENT/CAREGIVER ON DAILY FOOT INSPECTIONS [code = PT / WHANAU SUPPORT WORKER TO MONITOR FOR HYPO/HYPERGLYCEMIA AND CONDUCT ROUTINE FOOT INSPECTIONS. RECORD PATIENT REPORTED BLOOD SUGAR LEVELS AND NOTIFY PHYSICIAN AND/OR THE RN CLINICAL ENGRAVER TIRE MOLD FOR PHYSICIAN NOTIFICATION IF BLOOD SUGAR LEVELS [...] PANKAJ HASSAN [facility] [id number] 0.00
--- OUTSIDE RECORDS SUMMARY | 2025-04-24 19:00 | XMS_ITS | Clinical Summary ---
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 OF SYSTEMIC STEROIDS Active 10-28 00:00: 00 MUNICIPAL SERVICES MANAGER (CURRENT) USE OF OPIATE ANALGESIC Active [...] 10-27 00:00: 00 10-28 00:00 :00 No [id number] Per instruc tions Per instructio ns (route: oral) Med Classific ation: Analgesic , Anti-infl ammatory or Antipyret ic Dexcom G6 Sensor device 10-26 00:00: 00 10-28 00:00 :00 No [id number] Unavailable Per instruc tions Per instructio ns (route: miscellane ous) Med Classific ation: Medical Supplies and Durable Medical Equipment (DME) gabapentin 100 mg capsule 10-21 00:00: 00 10-28 00:00 :00 No [id number] Per instruc tions Per instructio ns (route: oral) Med Classific ation: Central Nervous System Agents amlodipine 10 mg tablet 10-19 00:00: 00 10-28 00:00 :00 No [id number] ESSENTIAL (PRIMARY) HYPERTENSIO N Per instruc tions DAILY Per instructio ns DAILY (route: oral) Med Classific ation: Cardiovas cular Therapy Agents Carin 2nd Gen Pen Needle 32 gauge x 5/32 10-19 00:00: 00 10-28 00:00 :00 No [id number] Per instruc tions INSULIN 5 TIMES DAILY Per instructio ns INSULIN 5 TIMES DAILY (route: miscellane ous) Med Classific ation: Medical Supplies and Durable Medical Equipment (DME) lisinopril 40 mg tablet 10-19 00:00: 00 10-28 00:00 :00 No [id number] ESSENTIAL (PRIMARY) HYPERTENSIO N Per instruc tions DAILY Per instructio ns DAILY (route: oral) Med Classific ation: Cardiovas cular Therapy Agents baclofen 10 mg tablet 10-15 00:00: 00 10-28 00:00 :00 No [id number] Per instruc tions Per instructio ns (route: oral) Med Classific ation: Locomotor System tramadol 50 mg tablet 10-15 00:00: 00 10-28 00:00 :00 No [id number] Per instruc tions Per instructio ns (route: oral) Med Classific ation: Analgesic , Anti-infl ammatory or Antipyret ic amoxicillin 875 mg tablet 10-13 00:00: 00 10-28 00:00 :00 No [id number] Per instruc tions Per instructio ns (route: oral) Med Classific ation: Anti-Infe ctive Agents chlorhexidi ne gluconate 0.12 % mouthwash 10-13 00:00: 00 10-28 00:00 :00 No [id number] Per instruc tions Per instructio ns (route: mucous membrane) Med Classific ation: Mouth-Thr oat-Denta l - Preparati ons cyclobenzap rine 10 mg tablet 10-09 00:00: 00 10-28 00:00 :00 No [id number] Per instruc tions Per instructio ns (route: oral) Med Classific ation: Locomotor System tadalafil 10 mg tablet 10-08 00:00: 00 10-28 00:00 :00 No [id number] MALE ERECTILE DYSFUNCTION , UNSPECIFIED Per instruc tions EVERY OTHER DAY NEEDED FOR SEXUAL ACTIVITY APPROXIMAT GONZALEZ 30 MINUTES PER 24 HOURS Per instructio ns EVERY OTHER DAY NEEDED FOR SEXUAL ACTIVITY APPROXIMAT GONZALEZ 30 MINUTES PER 24 HOURS (route: oral) Med Classific ation: Drugs to treat Erectile Dysfuncti on Ketostix strips 10-05 00:00: 00 10-28 00:00 :00 No [id number] 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 Per instruc tions AND DISCARD 1 TEST STRIP EVERY DAY NEEDED Per instructio ns AND DISCARD 1 TEST STRIP EVERY DAY NEEDED (route: miscellane ous) Med Classific ation: Medical Supplies and Durable Medical Equipment (DME) acetaminoph en 325 mg tablet 10-28 00:00: 00 Yes [id number] PAIN 2 tablet EVERY 4 HOURS 2 tablet EVERY 4 HOURS (route: oral) Med Classific ation: Analgesic , Anti-infl ammatory or Antipyret ic amlodipine 10 mg tablet 10-28 00:00: 00 Yes [id number] LOWERS BLOOD PRESSURE 1 tablet DAILY 1 tablet DAILY (route: oral) Med Classific ation: Cardiovas cular Therapy Agents atorvastati n 20 mg tablet 10-28 00:00: 00 Yes [id number] LOWERS CHOLESTEROL 1 tablet DAILY 1 tablet DAILY (route: oral) Med Classific ation: Cardiovas cular Therapy Agents cholecalcif swapna (vitamin D3) 25 mcg (1,000 unit) tablet 10-28 00:00: 00 Yes [id number] SUPPLEMENT 1 tablet DAILY 1 tablet DAILY (route: oral) Med Classific ation: Electroly te Balance-N utritiona l Products gabapentin 100 mg tablet 10-28 00:00: 00 Yes [id number] PAIN MANAGEMENT 1 tablet BEDTIME 1 tablet BEDTIME (route: oral) Med Classific ation: Central Nervous System Agents hydrochloro thiazide 12.5 mg tablet 10-28 00:00: 00 Yes [id number] FLUID RETENTION 1 tablet DAILY 1 tablet DAILY (route: oral) Med Classific ation: Cardiovas cular Therapy Agents insulin lispro (U-100) 100 unit/mL subcutaneou s pen 10-28 00:00: 00 Yes [id number] DIABETES Per instruc tions WITH MEALS Per instructio ns WITH MEALS (route: subcutaneo ) Med Classific ation: Endocrine lisinopril 40 mg tablet 10-28 00:00: 00 Yes [id number] LOWERS BLOOD PRESSURE 1 tablet DAILY 1 tablet DAILY (route: oral) Med Classific ation: Cardiovas cular Therapy Agents morphine 15 mg immediate release tablet 10-28 00:00: 00 Yes [id number] MODERATE PAIN 1 tablet EVERY 6 HOURS 1 tablet EVERY 6 HOURS (route: oral) Med Classific ation: Analgesic , Anti-infl ammatory or Antipyret ic omeprazole 20 mg capsule,del ayed release 10-28 00:00: 00 Yes [id number] GERD 1 capsule DAILY 1 capsule DAILY (route: oral) Med Classific ation: Gastroint estinal Therapy Agents prednisone 10 mg tablet 10-28 00:00: 00 Yes [id number] POLYMYALGIA 1 tablet DAILY 1 tablet DAILY (route: oral) Med Classific ation: Endocrine Tresiba FlexTouch U-100 insulin 100 unit/mL (3 mL) subcutaneou s pen 10-28 00:00: 00 Yes [id number] DIABETES 15 unit BEDTIME 15 unit BEDTIME (route: subcutaneo us) Med Classific ation: Endocrine naproxen 500 mg tablet 10-28 00:00: 00 Yes [id number] PAIN 1 tablet 2 TIMES DAILY 1 tablet 2 TIMES DAILY (route: oral) Med Classific ation: Analgesic , Anti-infl ammatory or Antipyret ic naproxen 500 mg tablet 11-18 00:00: 00 12-18 23:59 :00 No [id number] PAIN 1 tablet 2 TIMES DAILY 1 tablet 2 TIMES DAILY (route: oral) Med Classific ation: Analgesic , Anti-infl ammatory or Antipyret ic oxycodone 5 mg tablet 11-18 00:00: 00 Yes [id number] PAIN 1 tablet DAILY 1 tablet DAILY (route: oral) Med Classific ation: Analgesic , Anti-infl ammatory or Antipyret ic tramadol 50 mg tablet 12-18 00:00: 00 Yes [id number] SEVERE PAIN 1 tablet 3 TIMES DAILY [...] TO EVALUATE, OBSERVE / ASSESS, AND MONITOR, PUBLIC POLICY COORDINATOR TO OBSERVE AND MONITOR, PROVIDE SKILLED THERAPEUTIC INTERVENTION, ACTIVITY, EDUCATION, AND TRAINING TO ADDRESS; [code = AGENCY MAY PERFORM A RESUMPTION OF CARE VISIT FOLLOWING ANY HOSPITAL ADMISSION. PT TO EVALUATE, OBSERVE / ASSESS, AND MONITOR, PUBLIC POLICY COORDINATOR TO OBSERVE AND MONITOR, PROVIDE SKILLED THERAPEUTIC INTERVENTION, ACTIVITY, EDUCATION, AND TRAINING TO ADDRESS;] Future Scheduled Test PT/PUBLIC POLICY COORDINATOR TO PROVIDE GAIT TRAINING FOR IMPROVED MOBILITY AND /OR TO NORMALIZE GAIT PATTERN [code = PT/PUBLIC POLICY COORDINATOR TO PROVIDE GAIT TRAINING FOR IMPROVED MOBILITY AND /OR TO NORMALIZE GAIT PATTERN] Future Scheduled Test PT/PUBLIC POLICY COORDINATOR TO PROVIDE STAIR TRAINING [code = PT/PUBLIC POLICY COORDINATOR TO PROVIDE STAIR TRAINING] Future Scheduled Test NEUROMUSCU LAR RE-EDUCATION / BALANCE / POSTURAL CONTROL (PT) [code = NEUROMUSCULAR RE-EDUCATION / BALANCE / POSTURAL CONTROL (PT)] Future Scheduled Test THERAPEUTI C EXERCISES AND ESTABLISHING A HOME EXERCISE PROGRAM (PT/PUBLIC POLICY COORDINATOR) [code = THERAPEUTIC EXERCISES AND ESTABLISHING A HOME EXERCISE PROGRAM (PT/PUBLIC POLICY COORDINATOR)] Future Scheduled Test PT/PUBLIC POLICY COORDINATOR TO IDENTIFY FALL RISK FACTORS; EDUCATE THE PATIENT/CAREGIVER ON WAYS TO REDUCE FALL RISK FACTORS AND ESTABLISH HOME EXERCISE PROGRAM TO MINIMIZE FALL RISK. MAY TEACH THE PATIENT FLOOR RECOVERY WHEN CLINICALLY APPROPRIATE [code = PT/PUBLIC POLICY COORDINATOR TO IDENTIFY FALL RISK FACTORS; EDUCATE THE PATIENT/CAREGIVER ON WAYS TO REDUCE FALL RISK FACTORS AND ESTABLISH HOME EXERCISE PROGRAM TO MINIMIZE FALL RISK. MAY TEACH THE PATIENT FLOOR RECOVERY WHEN CLINICALLY APPROPRIATE] Future Scheduled Test PT/PUBLIC POLICY COORDINATOR TO EDUCATE ON ARTHRITIS SELF-MANAGEMENT PT/PUBLIC POLICY COORDINATOR MAY TEACH PATIENT APPLICATION OF CRYOTHERAPY/ HEAT FOR PAIN / SWELLING UP TO 20 MIN AT A TIME [code = PT/PUBLIC POLICY COORDINATOR TO EDUCATE ON ARTHRITIS SELF-MANAGEMENT PT/PUBLIC POLICY COORDINATOR MAY TEACH PATIENT APPLICATION OF CRYOTHERAPY/ HEAT FOR PAIN / SWELLING UP TO 20 MIN AT A TIME] Future Scheduled Test PT / PUBLIC POLICY COORDINATOR M AY EDUCATE ON PAIN MANAGEMENT CLINICALLY INDICATED, INCLUDING NON-PHARMACOLOGICAL PAIN REDUCTION TECHNIQUES AND USE OF CRYOTHERAPY OR HEAT UP TO 20 MIN AT A TIME FOR PAIN MANAGEMENT [code = PT / PUBLIC POLICY COORDINATOR MAY EDUCATE ON PAIN MANAGEMENT CLINICALLY INDICATED, INCLUDING NON-PHARMACOLOGICAL PAIN REDUCTION TECHNIQUES AND USE OF CRYOTHERAPY OR HEAT UP TO 20 MIN AT A TIME FOR PAIN MANAGEMENT] Future Scheduled Test PT / PUBLIC POLICY COORDINATOR T O MONITOR FOR HYPO/HYPERGLYCEMIA AND CONDUCT ROUTINE FOOT INSPECTIONS. RECORD PATIENT REPORTED BLOOD SUGAR LEVELS AND NOTIFY PHYSICIAN AND/OR THE RN CLINICAL SNOW REMOVAL SUPERVISOR FOR PHYSICIAN NOTIFICATION IF BLOOD SUGAR LEVELS ARE OUTSIDE ORDERED PARAMETERS. TEACH PATIENT/CAREGIVER ON DAILY FOOT INSPECTIONS [code = PT / PUBLIC POLICY COORDINATOR TO MONITOR FOR HYPO/HYPERGLYCEMIA AND CONDUCT ROUTINE FOOT INSPECTIONS. RECORD PATIENT REPORTED BLOOD SUGAR LEVELS AND NOTIFY PHYSICIAN AND/OR THE RN CLINICAL SNOW REMOVAL SUPERVISOR FOR PHYSICIAN NOTIFICATION IF BLOOD SUGAR LEVELS [...] 00:00:00 2025-04-25 00:00:00 Outpatient RECERTIFIC PANKAJ HASSAN [facility] [id number] [id number]
--- OUTSIDE RECORDS SUMMARY | 2025-04-24 19:00 | XMS_ITS | Clinical Summary ---
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 Active 10-28 00:00: 00 REFINER 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) USE OF OPIATE ANALGESIC Active [...] 10-27 00:00: 00 10-28 00:00 :00 No [id number] Per instruc tions Per instructio ns (route: oral) Med Classific ation: Analgesic , Anti-infl ammatory or Antipyret ic Dexcom G6 Sensor device 10-26 00:00: 00 10-28 00:00 :00 No [id number] Unavailable Per instruc tions Per instructio ns (route: miscellane ous) Med Classific ation: Medical Supplies and Durable Medical Equipment (DME) gabapentin 100 mg capsule 10-21 00:00: 00 10-28 00:00 :00 No [id number] Per instruc tions Per instructio ns (route: oral) Med Classific ation: Central Nervous System Agents amlodipine 10 mg tablet 10-19 00:00: 00 10-28 00:00 :00 No [id number] ESSENTIAL (PRIMARY) HYPERTENSIO N Per instruc tions DAILY Per instructio ns DAILY (route: oral) Med Classific ation: Cardiovas cular Therapy Agents Carin 2nd Gen Pen Needle 32 gauge x 5/32 10-19 00:00: 00 10-28 00:00 :00 No [id number] Per instruc tions INSULIN 5 TIMES DAILY Per instructio ns INSULIN 5 TIMES DAILY (route: miscellane ous) Med Classific ation: Medical Supplies and Durable Medical Equipment (DME) lisinopril 40 mg tablet 10-19 00:00: 00 10-28 00:00 :00 No [id number] ESSENTIAL (PRIMARY) HYPERTENSIO N Per instruc tions DAILY Per instructio ns DAILY (route: oral) Med Classific ation: Cardiovas cular Therapy Agents baclofen 10 mg tablet 10-15 00:00: 00 10-28 00:00 :00 No [id number] Per instruc tions Per instructio ns (route: oral) Med Classific ation: Locomotor System tramadol 50 mg tablet 10-15 00:00: 00 10-28 00:00 :00 No [id number] Per instruc tions Per instructio ns (route: oral) Med Classific ation: Analgesic , Anti-infl ammatory or Antipyret ic amoxicillin 875 mg tablet 10-13 00:00: 00 10-28 00:00 :00 No [id number] Per instruc tions Per instructio ns (route: oral) Med Classific ation: Anti-Infe ctive Agents chlorhexidi ne gluconate 0.12 % mouthwash 10-13 00:00: 00 10-28 00:00 :00 No [id number] Per instruc tions Per instructio ns (route: mucous membrane) Med Classific ation: Mouth-Thr oat-Denta l - Preparati ons cyclobenzap rine 10 mg tablet 10-09 00:00: 00 10-28 00:00 :00 No [id number] Per instruc tions Per instructio ns (route: oral) Med Classific ation: Locomotor System tadalafil 10 mg tablet 10-08 00:00: 00 10-28 00:00 :00 No [id number] MALE ERECTILE DYSFUNCTION , UNSPECIFIED Per instruc tions EVERY OTHER DAY NEEDED FOR SEXUAL ACTIVITY APPROXIMAT GONZALEZ 30 MINUTES PER 24 HOURS Per instructio ns EVERY OTHER DAY NEEDED FOR SEXUAL ACTIVITY APPROXIMAT GONZALEZ 30 MINUTES PER 24 HOURS (route: oral) Med Classific ation: Drugs to treat Erectile Dysfuncti on Ketostix strips 10-05 00:00: 00 10-28 00:00 :00 No [id number] 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 Per instruc tions AND DISCARD 1 TEST STRIP EVERY DAY NEEDED Per instructio ns AND DISCARD 1 TEST STRIP EVERY DAY NEEDED (route: miscellane ous) Med Classific ation: Medical Supplies and Durable Medical Equipment (DME) acetaminoph en 325 mg tablet 10-28 00:00: 00 Yes [id number] PAIN 2 tablet EVERY 4 HOURS 2 tablet EVERY 4 HOURS (route: oral) Med Classific ation: Analgesic , Anti-infl ammatory or Antipyret ic amlodipine 10 mg tablet 10-28 00:00: 00 Yes [id number] LOWERS BLOOD PRESSURE 1 tablet DAILY 1 tablet DAILY (route: oral) Med Classific ation: Cardiovas cular Therapy Agents atorvastati n 20 mg tablet 10-28 00:00: 00 Yes [id number] LOWERS CHOLESTEROL 1 tablet DAILY 1 tablet DAILY (route: oral) Med Classific ation: Cardiovas cular Therapy Agents cholecalcif swapna (vitamin D3) 25 mcg (1,000 unit) tablet 10-28 00:00: 00 Yes [id number] SUPPLEMENT 1 tablet DAILY 1 tablet DAILY (route: oral) Med Classific ation: Electroly te Balance-N utritiona l Products gabapentin 100 mg tablet 10-28 00:00: 00 Yes [id number] PAIN MANAGEMENT 1 tablet BEDTIME 1 tablet BEDTIME (route: oral) Med Classific ation: Central Nervous System Agents hydrochloro thiazide 12.5 mg tablet 10-28 00:00: 00 Yes [id number] FLUID RETENTION 1 tablet DAILY 1 tablet DAILY (route: oral) Med Classific ation: Cardiovas cular Therapy Agents insulin lispro (U-100) 100 unit/mL subcutaneou s pen 10-28 00:00: 00 Yes [id number] DIABETES Per instruc tions WITH MEALS Per instructio ns WITH MEALS (route: subcutaneo ) Med Classific ation: Endocrine lisinopril 40 mg tablet 10-28 00:00: 00 Yes [id number] LOWERS BLOOD PRESSURE 1 tablet DAILY 1 tablet DAILY (route: oral) Med Classific ation: Cardiovas cular Therapy Agents morphine 15 mg immediate release tablet 10-28 00:00: 00 Yes [id number] MODERATE PAIN 1 tablet EVERY 6 HOURS 1 tablet EVERY 6 HOURS (route: oral) Med Classific ation: Analgesic , Anti-infl ammatory or Antipyret ic omeprazole 20 mg capsule,del ayed release 10-28 00:00: 00 Yes [id number] GERD 1 capsule DAILY 1 capsule DAILY (route: oral) Med Classific ation: Gastroint estinal Therapy Agents prednisone 10 mg tablet 10-28 00:00: 00 Yes [id number] POLYMYALGIA 1 tablet DAILY 1 tablet DAILY (route: oral) Med Classific ation: Endocrine Tresiba FlexTouch U-100 insulin 100 unit/mL (3 mL) subcutaneou s pen 10-28 00:00: 00 Yes [id number] DIABETES 15 unit BEDTIME 15 unit BEDTIME (route: subcutaneo us) Med Classific ation: Endocrine naproxen 500 mg tablet 10-28 00:00: 00 Yes [id number] PAIN 1 tablet 2 TIMES DAILY 1 tablet 2 TIMES DAILY (route: oral) Med Classific ation: Analgesic , Anti-infl ammatory or Antipyret ic naproxen 500 mg tablet 11-18 00:00: 00 12-18 23:59 :00 No [id number] PAIN 1 tablet 2 TIMES DAILY 1 tablet 2 TIMES DAILY (route: oral) Med Classific ation: Analgesic , Anti-infl ammatory or Antipyret ic oxycodone 5 mg tablet 11-18 00:00: 00 Yes [id number] PAIN 1 tablet DAILY 1 tablet DAILY (route: oral) Med Classific ation: Analgesic , Anti-infl ammatory or Antipyret ic tramadol 50 mg tablet 12-18 00:00: 00 Yes [id number] SEVERE PAIN 1 tablet 3 TIMES DAILY [...] TO EVALUATE, OBSERVE / ASSESS, AND MONITOR, PHOTOGRAPHIC ARTIST TO OBSERVE AND MONITOR, PROVIDE SKILLED THERAPEUTIC INTERVENTION, ACTIVITY, EDUCATION, AND TRAINING TO ADDRESS; [code = AGENCY MAY PERFORM A RESUMPTION OF CARE VISIT FOLLOWING ANY HOSPITAL ADMISSION. PT TO EVALUATE, OBSERVE / ASSESS, AND MONITOR, PHOTOGRAPHIC ARTIST TO OBSERVE AND MONITOR, PROVIDE SKILLED THERAPEUTIC INTERVENTION, ACTIVITY, EDUCATION, AND TRAINING TO ADDRESS;] Future Scheduled Test PT/PHOTOGRAPHIC ARTIST TO PROVIDE GAIT TRAINING FOR IMPROVED MOBILITY AND /OR TO NORMALIZE GAIT PATTERN [code = PT/PHOTOGRAPHIC ARTIST TO PROVIDE GAIT TRAINING FOR IMPROVED MOBILITY AND /OR TO NORMALIZE GAIT PATTERN] Future Scheduled Test PT/PHOTOGRAPHIC ARTIST TO PROVIDE STAIR TRAINING [code = PT/PHOTOGRAPHIC ARTIST TO PROVIDE STAIR TRAINING] Future Scheduled Test NEUROMUSCU LAR RE-EDUCATION / BALANCE / POSTURAL CONTROL (PT) [code = NEUROMUSCULAR RE-EDUCATION / BALANCE / POSTURAL CONTROL (PT)] Future Scheduled Test THERAPEUTI C EXERCISES AND ESTABLISHING A HOME EXERCISE PROGRAM (PT/PHOTOGRAPHIC ARTIST) [code = THERAPEUTIC EXERCISES AND ESTABLISHING A HOME EXERCISE PROGRAM (PT/PHOTOGRAPHIC ARTIST)] Future Scheduled Test PT/PHOTOGRAPHIC ARTIST TO IDENTIFY FALL RISK FACTORS; EDUCATE THE PATIENT/CAREGIVER ON WAYS TO REDUCE FALL RISK FACTORS AND ESTABLISH HOME EXERCISE PROGRAM TO MINIMIZE FALL RISK. MAY TEACH THE PATIENT FLOOR RECOVERY WHEN CLINICALLY APPROPRIATE [code = PT/PHOTOGRAPHIC ARTIST TO IDENTIFY FALL RISK FACTORS; EDUCATE THE PATIENT/CAREGIVER ON WAYS TO REDUCE FALL RISK FACTORS AND ESTABLISH HOME EXERCISE PROGRAM TO MINIMIZE FALL RISK. MAY TEACH THE PATIENT FLOOR RECOVERY WHEN CLINICALLY APPROPRIATE] Future Scheduled Test PT/PHOTOGRAPHIC ARTIST TO EDUCATE ON ARTHRITIS SELF-MANAGEMENT PT/PHOTOGRAPHIC ARTIST MAY TEACH PATIENT APPLICATION OF CRYOTHERAPY/ HEAT FOR PAIN / SWELLING UP TO 20 MIN AT A TIME [code = PT/PHOTOGRAPHIC ARTIST TO EDUCATE ON ARTHRITIS SELF-MANAGEMENT PT/PHOTOGRAPHIC ARTIST MAY TEACH PATIENT APPLICATION OF CRYOTHERAPY/ HEAT FOR PAIN / SWELLING UP TO 20 MIN AT A TIME] Future Scheduled Test PT / PHOTOGRAPHIC ARTIST M AY EDUCATE ON PAIN MANAGEMENT CLINICALLY INDICATED, INCLUDING NON-PHARMACOLOGICAL PAIN REDUCTION TECHNIQUES AND USE OF CRYOTHERAPY OR HEAT UP TO 20 MIN AT A TIME FOR PAIN MANAGEMENT [code = PT / PHOTOGRAPHIC ARTIST MAY EDUCATE ON PAIN MANAGEMENT CLINICALLY INDICATED, INCLUDING NON-PHARMACOLOGICAL PAIN REDUCTION TECHNIQUES AND USE OF CRYOTHERAPY OR HEAT UP TO 20 MIN AT A TIME FOR PAIN MANAGEMENT] Future Scheduled Test PT / PHOTOGRAPHIC ARTIST T O MONITOR FOR HYPO/HYPERGLYCEMIA AND CONDUCT ROUTINE FOOT INSPECTIONS. RECORD PATIENT REPORTED BLOOD SUGAR LEVELS AND NOTIFY PHYSICIAN AND/OR THE RN CLINICAL PHOTO LAB TECHNICIAN FOR PHYSICIAN NOTIFICATION IF BLOOD SUGAR LEVELS ARE OUTSIDE ORDERED PARAMETERS. TEACH PATIENT/CAREGIVER ON DAILY FOOT INSPECTIONS [code = PT / PHOTOGRAPHIC ARTIST TO MONITOR FOR HYPO/HYPERGLYCEMIA AND CONDUCT ROUTINE FOOT INSPECTIONS. RECORD PATIENT REPORTED BLOOD SUGAR LEVELS AND NOTIFY PHYSICIAN AND/OR THE RN CLINICAL PHOTO LAB TECHNICIAN FOR PHYSICIAN NOTIFICATION IF BLOOD [...] Encounter Type Admission Type Attending [facility] Facility Care Department Encounter ID Discharge Date Discharge Status Discharge Condition Discharge Reason Percent Goals Met 2025-02-25 00:00:00 2025-04-25 00:00:00 Outpatient RECERTIFIC PANKAJ HASSAN [facility] [id number] 0.00
--- OUTSIDE RECORDS SUMMARY | 2025-04-24 19:00 | XMS_ITS | Clinical Summary ---
Author Organization Unknown Care Team Providers Care Decating Machine Operator Name Role Phone PO PRAKASH KIRAN Unavailable Unavaila ble FECTEAU DIRECTOR OF GRANTS, PHUONG Unavailable Unavailable KOREY RN, ALLY Unavailable Unavailable KEENA PT, PANKAJ Unavailable Unavailable Payers Payer Name Policy Type Policy Number Effective Date Expira tion Date MEDICARE.[facility] [id number] Problems Condition Name Condition Details Condition Category [...] HYPERCHOLEST EROLEMIA, UNSPECIFIED Active 10-28 00:00: 00 MCC (CURRENT) USE OF INSULIN Active 10-28 00:00: 00 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 10-28 00:00: 00 TANK SETTER HELPER (CURRENT) USE OF OPIATE ANALGESIC Active [...] 10-27 00:00: 00 10-28 00:00 :00 No [id number] Per instruc tions Per instructio ns (route: oral) Med Classific ation: Analgesic , Anti-infl ammatory or Antipyret ic Dexcom G6 Sensor device 10-26 00:00: 00 10-28 00:00 :00 No [id number] Unavailable Per instruc tions Per instructio ns (route: miscellane ous) Med Classific ation: Medical Supplies and Durable Medical Equipment (DME) gabapentin 100 mg capsule 10-21 00:00: 00 10-28 00:00 :00 No [id number] Per instruc tions Per instructio ns (route: oral) Med Classific ation: Central Nervous System Agents amlodipine 10 mg tablet 10-19 00:00: 00 10-28 00:00 :00 No [id number] ESSENTIAL (PRIMARY) HYPERTENSIO N Per instruc tions DAILY Per instructio ns DAILY (route: oral) Med Classific ation: Cardiovas cular Therapy Agents Carin 2nd Gen Pen Needle 32 gauge x 5/32 10-19 00:00: 00 10-28 00:00 :00 No [id number] Per instruc tions INSULIN 5 TIMES DAILY Per instructio ns INSULIN 5 TIMES DAILY (route: miscellane ous) Med Classific ation: Medical Supplies and Durable Medical Equipment (DME) lisinopril 40 mg tablet 10-19 00:00: 00 10-28 00:00 :00 No [id number] ESSENTIAL (PRIMARY) HYPERTENSIO N Per instruc tions DAILY Per instructio ns DAILY (route: oral) Med Classific ation: Cardiovas cular Therapy Agents baclofen 10 mg tablet 10-15 00:00: 00 10-28 00:00 :00 No [id number] Per instruc tions Per instructio ns (route: oral) Med Classific ation: Locomotor System tramadol 50 mg tablet 10-15 00:00: 00 10-28 00:00 :00 No [id number] Per instruc tions Per instructio ns (route: oral) Med Classific ation: Analgesic , Anti-infl ammatory or Antipyret ic amoxicillin 875 mg tablet 10-13 00:00: 00 10-28 00:00 :00 No [id number] Per instruc tions Per instructio ns (route: oral) Med Classific ation: Anti-Infe ctive Agents chlorhexidi ne gluconate 0.12 % mouthwash 10-13 00:00: 00 10-28 00:00 :00 No [id number] Per instruc tions Per instructio ns (route: mucous membrane) Med Classific ation: Mouth-Thr oat-Denta l - Preparati ons cyclobenzap rine 10 mg tablet 10-09 00:00: 00 10-28 00:00 :00 No [id number] Per instruc tions Per instructio ns (route: oral) Med Classific ation: Locomotor System tadalafil 10 mg tablet 10-08 00:00: 00 10-28 00:00 :00 No [id number] MALE ERECTILE DYSFUNCTION , UNSPECIFIED Per instruc tions EVERY OTHER DAY NEEDED FOR SEXUAL ACTIVITY APPROXIMAT GONZALEZ 30 MINUTES PER 24 HOURS Per instructio ns EVERY OTHER DAY NEEDED FOR SEXUAL ACTIVITY APPROXIMAT GONZALEZ 30 MINUTES PER 24 HOURS (route: oral) Med Classific ation: Drugs to treat Erectile Dysfuncti on Ketostix strips 10-05 00:00: 00 10-28 00:00 :00 No [id number] 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 Per instruc tions AND DISCARD 1 TEST STRIP EVERY DAY NEEDED Per instructio ns AND DISCARD 1 TEST STRIP EVERY DAY NEEDED (route: miscellane ous) Med Classific ation: Medical Supplies and Durable Medical Equipment (DME) acetaminoph en 325 mg tablet 10-28 00:00: 00 Yes [id number] PAIN 2 tablet EVERY 4 HOURS 2 tablet EVERY 4 HOURS (route: oral) Med Classific ation: Analgesic , Anti-infl ammatory or Antipyret ic amlodipine 10 mg tablet 10-28 00:00: 00 Yes [id number] LOWERS BLOOD PRESSURE 1 tablet DAILY 1 tablet DAILY (route: oral) Med Classific ation: Cardiovas cular Therapy Agents atorvastati n 20 mg tablet 10-28 00:00: 00 Yes [id number] LOWERS CHOLESTEROL 1 tablet DAILY 1 tablet DAILY (route: oral) Med Classific ation: Cardiovas cular Therapy Agents cholecalcif swapna (vitamin D3) 25 mcg (1,000 unit) tablet 10-28 00:00: 00 Yes [id number] SUPPLEMENT 1 tablet DAILY 1 tablet DAILY (route: oral) Med Classific ation: Electroly te Balance-N utritiona l Products gabapentin 100 mg tablet 10-28 00:00: 00 Yes [id number] PAIN MANAGEMENT 1 tablet BEDTIME 1 tablet BEDTIME (route: oral) Med Classific ation: Central Nervous System Agents hydrochloro thiazide 12.5 mg tablet 10-28 00:00: 00 Yes [id number] FLUID RETENTION 1 tablet DAILY 1 tablet DAILY (route: oral) Med Classific ation: Cardiovas cular Therapy Agents insulin lispro (U-100) 100 unit/mL subcutaneou s pen 10-28 00:00: 00 Yes [id number] DIABETES Per instruc tions WITH MEALS Per instructio ns WITH MEALS (route: subcutaneo ) Med Classific ation: Endocrine lisinopril 40 mg tablet 10-28 00:00: 00 Yes [id number] LOWERS BLOOD PRESSURE 1 tablet DAILY 1 tablet DAILY (route: oral) Med Classific ation: Cardiovas cular Therapy Agents morphine 15 mg immediate release tablet 10-28 00:00: 00 Yes [id number] MODERATE PAIN 1 tablet EVERY 6 HOURS 1 tablet EVERY 6 HOURS (route: oral) Med Classific ation: Analgesic , Anti-infl ammatory or Antipyret ic omeprazole 20 mg capsule,del ayed release 10-28 00:00: 00 Yes [id number] GERD 1 capsule DAILY 1 capsule DAILY (route: oral) Med Classific ation: Gastroint estinal Therapy Agents prednisone 10 mg tablet 10-28 00:00: 00 Yes [id number] POLYMYALGIA 1 tablet DAILY 1 tablet DAILY (route: oral) Med Classific ation: Endocrine Tresiba FlexTouch U-100 insulin 100 unit/mL (3 mL) subcutaneou s pen 10-28 00:00: 00 Yes [id number] DIABETES 15 unit BEDTIME 15 unit BEDTIME (route: subcutaneo us) Med Classific ation: Endocrine naproxen 500 mg tablet 10-28 00:00: 00 Yes [id number] PAIN 1 tablet 2 TIMES DAILY 1 tablet 2 TIMES DAILY (route: oral) Med Classific ation: Analgesic , Anti-infl ammatory or Antipyret ic naproxen 500 mg tablet 11-18 00:00: 00 12-18 23:59 :00 No [id number] PAIN 1 tablet 2 TIMES DAILY 1 tablet 2 TIMES DAILY (route: oral) Med Classific ation: Analgesic , Anti-infl ammatory or Antipyret ic oxycodone 5 mg tablet 11-18 00:00: 00 Yes [id number] PAIN 1 tablet DAILY 1 tablet DAILY (route: oral) Med Classific ation: Analgesic , Anti-infl ammatory or Antipyret ic tramadol 50 mg tablet 12-18 00:00: 00 Yes [id number] SEVERE PAIN 1 tablet 3 TIMES DAILY [...] TO EVALUATE, OBSERVE / ASSESS, AND MONITOR, DIRECTOR OF GRANTS TO OBSERVE AND MONITOR, PROVIDE SKILLED THERAPEUTIC INTERVENTION, ACTIVITY, EDUCATION, AND TRAINING TO ADDRESS; [code = AGENCY MAY PERFORM A RESUMPTION OF CARE VISIT FOLLOWING ANY HOSPITAL ADMISSION. PT TO EVALUATE, OBSERVE / ASSESS, AND MONITOR, DIRECTOR OF GRANTS TO OBSERVE AND MONITOR, PROVIDE SKILLED THERAPEUTIC INTERVENTION, ACTIVITY, EDUCATION, AND TRAINING TO ADDRESS;] Future Scheduled Test PT/DIRECTOR OF GRANTS TO PROVIDE GAIT TRAINING FOR IMPROVED MOBILITY AND /OR TO NORMALIZE GAIT PATTERN [code = PT/DIRECTOR OF GRANTS TO PROVIDE GAIT TRAINING FOR IMPROVED MOBILITY AND /OR TO NORMALIZE GAIT PATTERN] Future Scheduled Test PT/DIRECTOR OF GRANTS TO PROVIDE STAIR TRAINING [code = PT/DIRECTOR OF GRANTS TO PROVIDE STAIR TRAINING] Future Scheduled Test NEUROMUSCU LAR RE-EDUCATION / BALANCE / POSTURAL CONTROL (PT) [code = NEUROMUSCULAR RE-EDUCATION / BALANCE / POSTURAL CONTROL (PT)] Future Scheduled Test THERAPEUTI C EXERCISES AND ESTABLISHING A HOME EXERCISE PROGRAM (PT/DIRECTOR OF GRANTS) [code = THERAPEUTIC EXERCISES AND ESTABLISHING A HOME EXERCISE PROGRAM (PT/DIRECTOR OF GRANTS)] Future Scheduled Test PT/DIRECTOR OF GRANTS TO IDENTIFY FALL RISK FACTORS; EDUCATE THE PATIENT/CAREGIVER ON WAYS TO REDUCE FALL RISK FACTORS AND ESTABLISH HOME EXERCISE PROGRAM TO MINIMIZE FALL RISK. MAY TEACH THE PATIENT FLOOR RECOVERY WHEN CLINICALLY APPROPRIATE [code = PT/DIRECTOR OF GRANTS TO IDENTIFY FALL RISK FACTORS; EDUCATE THE PATIENT/CAREGIVER ON WAYS TO REDUCE FALL RISK FACTORS AND ESTABLISH HOME EXERCISE PROGRAM TO MINIMIZE FALL RISK. MAY TEACH THE PATIENT FLOOR RECOVERY WHEN CLINICALLY APPROPRIATE] Future Scheduled Test PT/DIRECTOR OF GRANTS TO EDUCATE ON ARTHRITIS SELF-MANAGEMENT PT/DIRECTOR OF GRANTS MAY TEACH PATIENT APPLICATION OF CRYOTHERAPY/ HEAT FOR PAIN / SWELLING UP TO 20 MIN AT A TIME [code = PT/DIRECTOR OF GRANTS TO EDUCATE ON ARTHRITIS SELF-MANAGEMENT PT/DIRECTOR OF GRANTS MAY TEACH PATIENT APPLICATION OF CRYOTHERAPY/ HEAT FOR PAIN / SWELLING UP TO 20 MIN AT A TIME] Future Scheduled Test PT / DIRECTOR OF GRANTS M AY EDUCATE ON PAIN MANAGEMENT CLINICALLY INDICATED, INCLUDING NON-PHARMACOLOGICAL PAIN REDUCTION TECHNIQUES AND USE OF CRYOTHERAPY OR HEAT UP TO 20 MIN AT A TIME FOR PAIN MANAGEMENT [code = PT / DIRECTOR OF GRANTS MAY EDUCATE ON PAIN MANAGEMENT CLINICALLY INDICATED, INCLUDING NON-PHARMACOLOGICAL PAIN REDUCTION TECHNIQUES AND USE OF CRYOTHERAPY OR HEAT UP TO 20 MIN AT A TIME FOR PAIN MANAGEMENT] Future Scheduled Test PT / DIRECTOR OF GRANTS T O MONITOR FOR HYPO/HYPERGLYCEMIA AND CONDUCT ROUTINE FOOT INSPECTIONS. RECORD PATIENT REPORTED BLOOD SUGAR LEVELS AND NOTIFY PHYSICIAN AND/OR THE RN CLINICAL WINEMAKER FOR PHYSICIAN NOTIFICATION IF BLOOD SUGAR LEVELS ARE OUTSIDE ORDERED PARAMETERS. TEACH PATIENT/CAREGIVER ON DAILY FOOT INSPECTIONS [code = PT / DIRECTOR OF GRANTS TO MONITOR FOR HYPO/HYPERGLYCEMIA AND CONDUCT ROUTINE FOOT INSPECTIONS. RECORD PATIENT REPORTED BLOOD SUGAR LEVELS AND NOTIFY PHYSICIAN AND/OR THE RN CLINICAL WINEMAKER FOR PHYSICIAN NOTIFICATION IF BLOOD SUGAR LEVELS [...] 00:00:00 Outpatient RECERTIFIC PANKAJ HASSAN [facility] [id number] 0.00
--- OUTSIDE RECORDS SUMMARY | 2025-04-24 19:00 | XMS_ITS | Clinical Summary ---
Author Organization Unknown Care Team Providers Care Insert Cutter Name Role Phone PO PRAKASH KIRAN Unavailable Unavaila ble FECTEAU TRANSPORTATION WORKER, PHUONG Unavailable Unavailable KOREY RN, ALLY Unavailable Unavailable KEENA PT, PANKAJ Unavailable Unavailable Payers Payer Name Policy Type Policy Number Effective Date Expira tion Date MEDICARE.[facility] [id number] Problems Condition Name Condition Details Condition Category [...] HYPERCHOLEST EROLEMIA, UNSPECIFIED Active 10-28 00:00: 00 PENITENTIARY (CURRENT) USE OF INSULIN Active 10-28 00:00: 00 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 Active 10-28 00:00: 00 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) USE OF OPIATE ANALGESIC Active [...] 10-27 00:00: 00 10-28 00:00 :00 No [id number] Per instruc tions Per instructio ns (route: oral) Med Classific ation: Analgesic , Anti-infl ammatory or Antipyret ic Dexcom G6 Sensor device 10-26 00:00: 00 10-28 00:00 :00 No [id number] Unavailable Per instruc tions Per instructio ns (route: miscellane ous) Med Classific ation: Medical Supplies and Durable Medical Equipment (DME) gabapentin 100 mg capsule 10-21 00:00: 00 10-28 00:00 :00 No [id number] Per instruc tions Per instructio ns (route: oral) Med Classific ation: Central Nervous System Agents amlodipine 10 mg tablet 10-19 00:00: 00 10-28 00:00 :00 No [id number] ESSENTIAL (PRIMARY) HYPERTENSIO N Per instruc tions DAILY Per instructio ns DAILY (route: oral) Med Classific ation: Cardiovas cular Therapy Agents Carin 2nd Gen Pen Needle 32 gauge x 5/32 10-19 00:00: 00 10-28 00:00 :00 No [id number] Per instruc tions INSULIN 5 TIMES DAILY Per instructio ns INSULIN 5 TIMES DAILY (route: miscellane ous) Med Classific ation: Medical Supplies and Durable Medical Equipment (DME) lisinopril 40 mg tablet 10-19 00:00: 00 10-28 00:00 :00 No [id number] ESSENTIAL (PRIMARY) HYPERTENSIO N Per instruc tions DAILY Per instructio ns DAILY (route: oral) Med Classific ation: Cardiovas cular Therapy Agents baclofen 10 mg tablet 10-15 00:00: 00 10-28 00:00 :00 No [id number] Per instruc tions Per instructio ns (route: oral) Med Classific ation: Locomotor System tramadol 50 mg tablet 10-15 00:00: 00 10-28 00:00 :00 No [id number] Per instruc tions Per instructio ns (route: oral) Med Classific ation: Analgesic , Anti-infl ammatory or Antipyret ic amoxicillin 875 mg tablet 10-13 00:00: 00 10-28 00:00 :00 No [id number] Per instruc tions Per instructio ns (route: oral) Med Classific ation: Anti-Infe ctive Agents chlorhexidi ne gluconate 0.12 % mouthwash 10-13 00:00: 00 10-28 00:00 :00 No [id number] Per instruc tions Per instructio ns (route: mucous membrane) Med Classific ation: Mouth-Thr oat-Denta l - Preparati ons cyclobenzap rine 10 mg tablet 10-09 00:00: 00 10-28 00:00 :00 No [id number] Per instruc tions Per instructio ns (route: oral) Med Classific ation: Locomotor System tadalafil 10 mg tablet 10-08 00:00: 00 10-28 00:00 :00 No [id number] MALE ERECTILE DYSFUNCTION , UNSPECIFIED Per instruc tions EVERY OTHER DAY NEEDED FOR SEXUAL ACTIVITY APPROXIMAT GONZALEZ 30 MINUTES PER 24 HOURS Per instructio ns EVERY OTHER DAY NEEDED FOR SEXUAL ACTIVITY APPROXIMAT GONZALEZ 30 MINUTES PER 24 HOURS (route: oral) Med Classific ation: Drugs to treat Erectile Dysfuncti on Ketostix strips 10-05 00:00: 00 10-28 00:00 :00 No [id number] 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 Per instruc tions AND DISCARD 1 TEST STRIP EVERY DAY NEEDED Per instructio ns AND DISCARD 1 TEST STRIP EVERY DAY NEEDED (route: miscellane ous) Med Classific ation: Medical Supplies and Durable Medical Equipment (DME) acetaminoph en 325 mg tablet 10-28 00:00: 00 Yes [id number] PAIN 2 tablet EVERY 4 HOURS 2 tablet EVERY 4 HOURS (route: oral) Med Classific ation: Analgesic , Anti-infl ammatory or Antipyret ic amlodipine 10 mg tablet 10-28 00:00: 00 Yes [id number] LOWERS BLOOD PRESSURE 1 tablet DAILY 1 tablet DAILY (route: oral) Med Classific ation: Cardiovas cular Therapy Agents atorvastati n 20 mg tablet 10-28 00:00: 00 Yes [id number] LOWERS CHOLESTEROL 1 tablet DAILY 1 tablet DAILY (route: oral) Med Classific ation: Cardiovas cular Therapy Agents cholecalcif swapna (vitamin D3) 25 mcg (1,000 unit) tablet 10-28 00:00: 00 Yes [id number] SUPPLEMENT 1 tablet DAILY 1 tablet DAILY (route: oral) Med Classific ation: Electroly te Balance-N utritiona l Products gabapentin 100 mg tablet 10-28 00:00: 00 Yes [id number] PAIN MANAGEMENT 1 tablet BEDTIME 1 tablet BEDTIME (route: oral) Med Classific ation: Central Nervous System Agents hydrochloro thiazide 12.5 mg tablet 10-28 00:00: 00 Yes [id number] FLUID RETENTION 1 tablet DAILY 1 tablet DAILY (route: oral) Med Classific ation: Cardiovas cular Therapy Agents insulin lispro (U-100) 100 unit/mL subcutaneou s pen 10-28 00:00: 00 Yes [id number] DIABETES Per instruc tions WITH MEALS Per instructio ns WITH MEALS (route: subcutaneo ) Med Classific ation: Endocrine lisinopril 40 mg tablet 10-28 00:00: 00 Yes [id number] LOWERS BLOOD PRESSURE 1 tablet DAILY 1 tablet DAILY (route: oral) Med Classific ation: Cardiovas cular Therapy Agents morphine 15 mg immediate release tablet 10-28 00:00: 00 Yes [id number] MODERATE PAIN 1 tablet EVERY 6 HOURS 1 tablet EVERY 6 HOURS (route: oral) Med Classific ation: Analgesic , Anti-infl ammatory or Antipyret ic omeprazole 20 mg capsule,del ayed release 10-28 00:00: 00 Yes [id number] GERD 1 capsule DAILY 1 capsule DAILY (route: oral) Med Classific ation: Gastroint estinal Therapy Agents prednisone 10 mg tablet 10-28 00:00: 00 Yes [id number] POLYMYALGIA 1 tablet DAILY 1 tablet DAILY (route: oral) Med Classific ation: Endocrine Tresiba FlexTouch U-100 insulin 100 unit/mL (3 mL) subcutaneou s pen 10-28 00:00: 00 Yes [id number] DIABETES 15 unit BEDTIME 15 unit BEDTIME (route: subcutaneo us) Med Classific ation: Endocrine naproxen 500 mg tablet 10-28 00:00: 00 Yes [id number] PAIN 1 tablet 2 TIMES DAILY 1 tablet 2 TIMES DAILY (route: oral) Med Classific ation: Analgesic , Anti-infl ammatory or Antipyret ic naproxen 500 mg tablet 11-18 00:00: 00 12-18 23:59 :00 No [id number] PAIN 1 tablet 2 TIMES DAILY 1 tablet 2 TIMES DAILY (route: oral) Med Classific ation: Analgesic , Anti-infl ammatory or Antipyret ic oxycodone 5 mg tablet 11-18 00:00: 00 Yes [id number] PAIN 1 tablet DAILY 1 tablet DAILY (route: oral) Med Classific ation: Analgesic , Anti-infl ammatory or Antipyret ic tramadol 50 mg tablet 12-18 00:00: 00 Yes [id number] SEVERE PAIN 1 tablet 3 TIMES DAILY [...] TO EVALUATE, OBSERVE / ASSESS, AND MONITOR, TRANSPORTATION WORKER TO OBSERVE AND MONITOR, PROVIDE SKILLED THERAPEUTIC INTERVENTION, ACTIVITY, EDUCATION, AND TRAINING TO ADDRESS; [code = AGENCY MAY PERFORM A RESUMPTION OF CARE VISIT FOLLOWING ANY HOSPITAL ADMISSION. PT TO EVALUATE, OBSERVE / ASSESS, AND MONITOR, TRANSPORTATION WORKER TO OBSERVE AND MONITOR, PROVIDE SKILLED THERAPEUTIC INTERVENTION, ACTIVITY, EDUCATION, AND TRAINING TO ADDRESS;] Future Scheduled Test PT/TRANSPORTATION WORKER TO PROVIDE GAIT TRAINING FOR IMPROVED MOBILITY AND /OR TO NORMALIZE GAIT PATTERN [code = PT/TRANSPORTATION WORKER TO PROVIDE GAIT TRAINING FOR IMPROVED MOBILITY AND /OR TO NORMALIZE GAIT PATTERN] Future Scheduled Test PT/TRANSPORTATION WORKER TO PROVIDE STAIR TRAINING [code = PT/TRANSPORTATION WORKER TO PROVIDE STAIR TRAINING] Future Scheduled Test NEUROMUSCU LAR RE-EDUCATION / BALANCE / POSTURAL CONTROL (PT) [code = NEUROMUSCULAR RE-EDUCATION / BALANCE / POSTURAL CONTROL (PT)] Future Scheduled Test THERAPEUTI C EXERCISES AND ESTABLISHING A HOME EXERCISE PROGRAM (PT/TRANSPORTATION WORKER) [code = THERAPEUTIC EXERCISES AND ESTABLISHING A HOME EXERCISE PROGRAM (PT/TRANSPORTATION WORKER)] Future Scheduled Test PT/TRANSPORTATION WORKER TO IDENTIFY FALL RISK FACTORS; EDUCATE THE PATIENT/CAREGIVER ON WAYS TO REDUCE FALL RISK FACTORS AND ESTABLISH HOME EXERCISE PROGRAM TO MINIMIZE FALL RISK. MAY TEACH THE PATIENT FLOOR RECOVERY WHEN CLINICALLY APPROPRIATE [code = PT/TRANSPORTATION WORKER TO IDENTIFY FALL RISK FACTORS; EDUCATE THE PATIENT/CAREGIVER ON WAYS TO REDUCE FALL RISK FACTORS AND ESTABLISH HOME EXERCISE PROGRAM TO MINIMIZE FALL RISK. MAY TEACH THE PATIENT FLOOR RECOVERY WHEN CLINICALLY APPROPRIATE] Future Scheduled Test PT/TRANSPORTATION WORKER TO EDUCATE ON ARTHRITIS SELF-MANAGEMENT PT/TRANSPORTATION WORKER MAY TEACH PATIENT APPLICATION OF CRYOTHERAPY/ HEAT FOR PAIN / SWELLING UP TO 20 MIN AT A TIME [code = PT/TRANSPORTATION WORKER TO EDUCATE ON ARTHRITIS SELF-MANAGEMENT PT/TRANSPORTATION WORKER MAY TEACH PATIENT APPLICATION OF CRYOTHERAPY/ HEAT FOR PAIN / SWELLING UP TO 20 MIN AT A TIME] Future Scheduled Test PT / TRANSPORTATION WORKER M AY EDUCATE ON PAIN MANAGEMENT CLINICALLY INDICATED, INCLUDING NON-PHARMACOLOGICAL PAIN REDUCTION TECHNIQUES AND USE OF CRYOTHERAPY OR HEAT UP TO 20 MIN AT A TIME FOR PAIN MANAGEMENT [code = PT / TRANSPORTATION WORKER MAY EDUCATE ON PAIN MANAGEMENT CLINICALLY INDICATED, INCLUDING NON-PHARMACOLOGICAL PAIN REDUCTION TECHNIQUES AND USE OF CRYOTHERAPY OR HEAT UP TO 20 MIN AT A TIME FOR PAIN MANAGEMENT] Future Scheduled Test PT / TRANSPORTATION WORKER T O MONITOR FOR HYPO/HYPERGLYCEMIA AND CONDUCT ROUTINE FOOT INSPECTIONS. RECORD PATIENT REPORTED BLOOD SUGAR LEVELS AND NOTIFY PHYSICIAN AND/OR THE RN CLINICAL M48 M60 ARMOR CREWMAN FOR PHYSICIAN NOTIFICATION IF BLOOD SUGAR LEVELS ARE OUTSIDE ORDERED PARAMETERS. TEACH PATIENT/CAREGIVER ON DAILY FOOT INSPECTIONS [code = PT / TRANSPORTATION WORKER TO MONITOR FOR HYPO/HYPERGLYCEMIA AND CONDUCT ROUTINE FOOT INSPECTIONS. RECORD PATIENT REPORTED BLOOD SUGAR LEVELS AND NOTIFY PHYSICIAN AND/OR THE RN CLINICAL M48 M60 ARMOR CREWMAN FOR PHYSICIAN NOTIFICATION IF BLOOD SUGAR LEVELS [...] 2025-04-25 00:00:00 Outpatient RECERTIFIC PANKAJ HASSAN [facility] [id number] 0.00
--- OUTSIDE RECORDS SUMMARY | 2025-04-24 19:00 | XMS_ITS | Clinical Summary ---
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 SYSTEMIC STEROIDS Active 10-28 00:00: 00 ENTERTAINMENT PRODUCTION PROFESSIONAL (CURRENT) USE OF OPIATE ANALGESIC Active 10-28 [...] 10-27 00:00: 00 10-28 00:00 :00 No [id number] Per instruc tions Per instructio ns (route: oral) Med Classific ation: Analgesic , Anti-infl ammatory or Antipyret ic Dexcom G6 Sensor device 10-26 00:00: 00 10-28 00:00 :00 No [id number] Unavailable Per instruc tions Per instructio ns (route: miscellane ous) Med Classific ation: Medical Supplies and Durable Medical Equipment (DME) gabapentin 100 mg capsule 10-21 00:00: 00 10-28 00:00 :00 No [id number] Per instruc tions Per instructio ns (route: oral) Med Classific ation: Central Nervous System Agents amlodipine 10 mg tablet 10-19 00:00: 00 10-28 00:00 :00 No [id number] ESSENTIAL (PRIMARY) HYPERTENSIO N Per instruc tions DAILY Per instructio ns DAILY (route: oral) Med Classific ation: Cardiovas cular Therapy Agents Carin 2nd Gen Pen Needle 32 gauge x 5/32 10-19 00:00: 00 10-28 00:00 :00 No [id number] Per instruc tions INSULIN 5 TIMES DAILY Per instructio ns INSULIN 5 TIMES DAILY (route: miscellane ous) Med Classific ation: Medical Supplies and Durable Medical Equipment (DME) lisinopril 40 mg tablet 10-19 00:00: 00 10-28 00:00 :00 No [id number] ESSENTIAL (PRIMARY) HYPERTENSIO N Per instruc tions DAILY Per instructio ns DAILY (route: oral) Med Classific ation: Cardiovas cular Therapy Agents baclofen 10 mg tablet 10-15 00:00: 00 10-28 00:00 :00 No [id number] Per instruc tions Per instructio ns (route: oral) Med Classific ation: Locomotor System tramadol 50 mg tablet 10-15 00:00: 00 10-28 00:00 :00 No [id number] Per instruc tions Per instructio ns (route: oral) Med Classific ation: Analgesic , Anti-infl ammatory or Antipyret ic amoxicillin 875 mg tablet 10-13 00:00: 00 10-28 00:00 :00 No [id number] Per instruc tions Per instructio ns (route: oral) Med Classific ation: Anti-Infe ctive Agents chlorhexidi ne gluconate 0.12 % mouthwash 10-13 00:00: 00 10-28 00:00 :00 No [id number] Per instruc tions Per instructio ns (route: mucous membrane) Med Classific ation: Mouth-Thr oat-Denta l - Preparati ons cyclobenzap rine 10 mg tablet 10-09 00:00: 00 10-28 00:00 :00 No [id number] Per instruc tions Per instructio ns (route: oral) Med Classific ation: Locomotor System tadalafil 10 mg tablet 10-08 00:00: 00 10-28 00:00 :00 No [id number] MALE ERECTILE DYSFUNCTION , UNSPECIFIED Per instruc tions EVERY OTHER DAY NEEDED FOR SEXUAL ACTIVITY APPROXIMAT GONZALEZ 30 MINUTES PER 24 HOURS Per instructio ns EVERY OTHER DAY NEEDED FOR SEXUAL ACTIVITY APPROXIMAT GONZALEZ 30 MINUTES PER 24 HOURS (route: oral) Med Classific ation: Drugs to treat Erectile Dysfuncti on Ketostix strips 10-05 00:00: 00 10-28 00:00 :00 No [id number] 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 Per instruc tions AND DISCARD 1 TEST STRIP EVERY DAY NEEDED Per instructio ns AND DISCARD 1 TEST STRIP EVERY DAY NEEDED (route: miscellane ous) Med Classific ation: Medical Supplies and Durable Medical Equipment (DME) acetaminoph en 325 mg tablet 10-28 00:00: 00 Yes [id number] PAIN 2 tablet EVERY 4 HOURS 2 tablet EVERY 4 HOURS (route: oral) Med Classific ation: Analgesic , Anti-infl ammatory or Antipyret ic amlodipine 10 mg tablet 10-28 00:00: 00 Yes [id number] LOWERS BLOOD PRESSURE 1 tablet DAILY 1 tablet DAILY (route: oral) Med Classific ation: Cardiovas cular Therapy Agents atorvastati n 20 mg tablet 10-28 00:00: 00 Yes [id number] LOWERS CHOLESTEROL 1 tablet DAILY 1 tablet DAILY (route: oral) Med Classific ation: Cardiovas cular Therapy Agents cholecalcif swapna (vitamin D3) 25 mcg (1,000 unit) tablet 10-28 00:00: 00 Yes [id number] SUPPLEMENT 1 tablet DAILY 1 tablet DAILY (route: oral) Med Classific ation: Electroly te Balance-N utritiona l Products gabapentin 100 mg tablet 10-28 00:00: 00 Yes [id number] PAIN MANAGEMENT 1 tablet BEDTIME 1 tablet BEDTIME (route: oral) Med Classific ation: Central Nervous System Agents hydrochloro thiazide 12.5 mg tablet 10-28 00:00: 00 Yes [id number] FLUID RETENTION 1 tablet DAILY 1 tablet DAILY (route: oral) Med Classific ation: Cardiovas cular Therapy Agents insulin lispro (U-100) 100 unit/mL subcutaneou s pen 10-28 00:00: 00 Yes [id number] DIABETES Per instruc tions WITH MEALS Per instructio ns WITH MEALS (route: subcutaneo ) Med Classific ation: Endocrine lisinopril 40 mg tablet 10-28 00:00: 00 Yes [id number] LOWERS BLOOD PRESSURE 1 tablet DAILY 1 tablet DAILY (route: oral) Med Classific ation: Cardiovas cular Therapy Agents morphine 15 mg immediate release tablet 10-28 00:00: 00 Yes [id number] MODERATE PAIN 1 tablet EVERY 6 HOURS 1 tablet EVERY 6 HOURS (route: oral) Med Classific ation: Analgesic , Anti-infl ammatory or Antipyret ic omeprazole 20 mg capsule,del ayed release 10-28 00:00: 00 Yes [id number] GERD 1 capsule DAILY 1 capsule DAILY (route: oral) Med Classific ation: Gastroint estinal Therapy Agents prednisone 10 mg tablet 10-28 00:00: 00 Yes [id number] POLYMYALGIA 1 tablet DAILY 1 tablet DAILY (route: oral) Med Classific ation: Endocrine Tresiba FlexTouch U-100 insulin 100 unit/mL (3 mL) subcutaneou s pen 10-28 00:00: 00 Yes [id number] DIABETES 15 unit BEDTIME 15 unit BEDTIME (route: subcutaneo us) Med Classific ation: Endocrine naproxen 500 mg tablet 10-28 00:00: 00 Yes [id number] PAIN 1 tablet 2 TIMES DAILY 1 tablet 2 TIMES DAILY (route: oral) Med Classific ation: Analgesic , Anti-infl ammatory or Antipyret ic naproxen 500 mg tablet 11-18 00:00: 00 12-18 23:59 :00 No [id number] PAIN 1 tablet 2 TIMES DAILY 1 tablet 2 TIMES DAILY (route: oral) Med Classific ation: Analgesic , Anti-infl ammatory or Antipyret ic oxycodone 5 mg tablet 11-18 00:00: 00 Yes [id number] PAIN 1 tablet DAILY 1 tablet DAILY (route: oral) Med Classific ation: Analgesic , Anti-infl ammatory or Antipyret ic tramadol 50 mg tablet 12-18 00:00: 00 Yes [id number] SEVERE PAIN 1 tablet 3 TIMES DAILY [...] TO EVALUATE, OBSERVE / ASSESS, AND MONITOR, MANAGER STATISTICS TO OBSERVE AND MONITOR, PROVIDE SKILLED THERAPEUTIC INTERVENTION, ACTIVITY, EDUCATION, AND TRAINING TO ADDRESS; [code = AGENCY MAY PERFORM A RESUMPTION OF CARE VISIT FOLLOWING ANY HOSPITAL ADMISSION. PT TO EVALUATE, OBSERVE / ASSESS, AND MONITOR, MANAGER STATISTICS TO OBSERVE AND MONITOR, PROVIDE SKILLED THERAPEUTIC INTERVENTION, ACTIVITY, EDUCATION, AND TRAINING TO ADDRESS;] Future Scheduled Test PT/MANAGER STATISTICS TO PROVIDE GAIT TRAINING FOR IMPROVED MOBILITY AND /OR TO NORMALIZE GAIT PATTERN [code = PT/MANAGER STATISTICS TO PROVIDE GAIT TRAINING FOR IMPROVED MOBILITY AND /OR TO NORMALIZE GAIT PATTERN] Future Scheduled Test PT/MANAGER STATISTICS TO PROVIDE STAIR TRAINING [code = PT/MANAGER STATISTICS TO PROVIDE STAIR TRAINING] Future Scheduled Test NEUROMUSCU LAR RE-EDUCATION / BALANCE / POSTURAL CONTROL (PT) [code = NEUROMUSCULAR RE-EDUCATION / BALANCE / POSTURAL CONTROL (PT)] Future Scheduled Test THERAPEUTI C EXERCISES AND ESTABLISHING A HOME EXERCISE PROGRAM (PT/MANAGER STATISTICS) [code = THERAPEUTIC EXERCISES AND ESTABLISHING A HOME EXERCISE PROGRAM (PT/MANAGER STATISTICS)] Future Scheduled Test PT/MANAGER STATISTICS TO IDENTIFY FALL RISK FACTORS; EDUCATE THE PATIENT/CAREGIVER ON WAYS TO REDUCE FALL RISK FACTORS AND ESTABLISH HOME EXERCISE PROGRAM TO MINIMIZE FALL RISK. MAY TEACH THE PATIENT FLOOR RECOVERY WHEN CLINICALLY APPROPRIATE [code = PT/MANAGER STATISTICS TO IDENTIFY FALL RISK FACTORS; EDUCATE THE PATIENT/CAREGIVER ON WAYS TO REDUCE FALL RISK FACTORS AND ESTABLISH HOME EXERCISE PROGRAM TO MINIMIZE FALL RISK. MAY TEACH THE PATIENT FLOOR RECOVERY WHEN CLINICALLY APPROPRIATE] Future Scheduled Test PT/MANAGER STATISTICS TO EDUCATE ON ARTHRITIS SELF-MANAGEMENT PT/MANAGER STATISTICS MAY TEACH PATIENT APPLICATION OF CRYOTHERAPY/ HEAT FOR PAIN / SWELLING UP TO 20 MIN AT A TIME [code = PT/MANAGER STATISTICS TO EDUCATE ON ARTHRITIS SELF-MANAGEMENT PT/MANAGER STATISTICS MAY TEACH PATIENT APPLICATION OF CRYOTHERAPY/ HEAT FOR PAIN / SWELLING UP TO 20 MIN AT A TIME] Future Scheduled Test PT / MANAGER STATISTICS M AY EDUCATE ON PAIN MANAGEMENT CLINICALLY INDICATED, INCLUDING NON-PHARMACOLOGICAL PAIN REDUCTION TECHNIQUES AND USE OF CRYOTHERAPY OR HEAT UP TO 20 MIN AT A TIME FOR PAIN MANAGEMENT [code = PT / MANAGER STATISTICS MAY EDUCATE ON PAIN MANAGEMENT CLINICALLY INDICATED, INCLUDING NON-PHARMACOLOGICAL PAIN REDUCTION TECHNIQUES AND USE OF CRYOTHERAPY OR HEAT UP TO 20 MIN AT A TIME FOR PAIN MANAGEMENT] Future Scheduled Test PT / MANAGER STATISTICS T O MONITOR FOR HYPO/HYPERGLYCEMIA AND CONDUCT ROUTINE FOOT INSPECTIONS. RECORD PATIENT REPORTED BLOOD SUGAR LEVELS AND NOTIFY PHYSICIAN AND/OR THE RN CLINICAL NUTRITION PARTNER FOR PHYSICIAN NOTIFICATION IF BLOOD SUGAR LEVELS ARE OUTSIDE ORDERED PARAMETERS. TEACH PATIENT/CAREGIVER ON DAILY FOOT INSPECTIONS [code = PT / MANAGER STATISTICS TO MONITOR FOR HYPO/HYPERGLYCEMIA AND CONDUCT ROUTINE FOOT INSPECTIONS. RECORD PATIENT REPORTED BLOOD SUGAR LEVELS AND NOTIFY PHYSICIAN AND/OR THE RN CLINICAL NUTRITION PARTNER FOR PHYSICIAN NOTIFICATION IF BLOOD SUGAR LEVELS [...] PANKAJ HASSAN [facility] [id number] 0.00
--- OUTSIDE RECORDS SUMMARY | 2025-04-24 19:00 | XMS_ITS | Clinical Summary ---
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 Active 10-28 00:00: 00 MACHINE MOVER (CURRENT) USE OF OPIATE ANALGESIC Active 10-28 [...] 10-27 00:00: 00 10-28 00:00 :00 No [id number] Per instruc tions Per instructio ns (route: oral) Med Classific ation: Analgesic , Anti-infl ammatory or Antipyret ic Dexcom G6 Sensor device 10-26 00:00: 00 10-28 00:00 :00 No [id number] Unavailable Per instruc tions Per instructio ns (route: miscellane ous) Med Classific ation: Medical Supplies and Durable Medical Equipment (DME) gabapentin 100 mg capsule 10-21 00:00: 00 10-28 00:00 :00 No [id number] Per instruc tions Per instructio ns (route: oral) Med Classific ation: Central Nervous System Agents amlodipine 10 mg tablet 10-19 00:00: 00 10-28 00:00 :00 No [id number] ESSENTIAL (PRIMARY) HYPERTENSIO N Per instruc tions DAILY Per instructio ns DAILY (route: oral) Med Classific ation: Cardiovas cular Therapy Agents Carin 2nd Gen Pen Needle 32 gauge x 5/32 10-19 00:00: 00 10-28 00:00 :00 No [id number] Per instruc tions INSULIN 5 TIMES DAILY Per instructio ns INSULIN 5 TIMES DAILY (route: miscellane ous) Med Classific ation: Medical Supplies and Durable Medical Equipment (DME) lisinopril 40 mg tablet 10-19 00:00: 00 10-28 00:00 :00 No [id number] ESSENTIAL (PRIMARY) HYPERTENSIO N Per instruc tions DAILY Per instructio ns DAILY (route: oral) Med Classific ation: Cardiovas cular Therapy Agents baclofen 10 mg tablet 10-15 00:00: 00 10-28 00:00 :00 No [id number] Per instruc tions Per instructio ns (route: oral) Med Classific ation: Locomotor System tramadol 50 mg tablet 10-15 00:00: 00 10-28 00:00 :00 No [id number] Per instruc tions Per instructio ns (route: oral) Med Classific ation: Analgesic , Anti-infl ammatory or Antipyret ic amoxicillin 875 mg tablet 10-13 00:00: 00 10-28 00:00 :00 No [id number] Per instruc tions Per instructio ns (route: oral) Med Classific ation: Anti-Infe ctive Agents chlorhexidi ne gluconate 0.12 % mouthwash 10-13 00:00: 00 10-28 00:00 :00 No [id number] Per instruc tions Per instructio ns (route: mucous membrane) Med Classific ation: Mouth-Thr oat-Denta l - Preparati ons cyclobenzap rine 10 mg tablet 10-09 00:00: 00 10-28 00:00 :00 No [id number] Per instruc tions Per instructio ns (route: oral) Med Classific ation: Locomotor System tadalafil 10 mg tablet 10-08 00:00: 00 10-28 00:00 :00 No [id number] MALE ERECTILE DYSFUNCTION , UNSPECIFIED Per instruc tions EVERY OTHER DAY NEEDED FOR SEXUAL ACTIVITY APPROXIMAT GONZALEZ 30 MINUTES PER 24 HOURS Per instructio ns EVERY OTHER DAY NEEDED FOR SEXUAL ACTIVITY APPROXIMAT GONZALEZ 30 MINUTES PER 24 HOURS (route: oral) Med Classific ation: Drugs to treat Erectile Dysfuncti on Ketostix strips 10-05 00:00: 00 10-28 00:00 :00 No [id number] 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 Per instruc tions AND DISCARD 1 TEST STRIP EVERY DAY NEEDED Per instructio ns AND DISCARD 1 TEST STRIP EVERY DAY NEEDED (route: miscellane ous) Med Classific ation: Medical Supplies and Durable Medical Equipment (DME) acetaminoph en 325 mg tablet 10-28 00:00: 00 Yes [id number] PAIN 2 tablet EVERY 4 HOURS 2 tablet EVERY 4 HOURS (route: oral) Med Classific ation: Analgesic , Anti-infl ammatory or Antipyret ic amlodipine 10 mg tablet 10-28 00:00: 00 Yes [id number] LOWERS BLOOD PRESSURE 1 tablet DAILY 1 tablet DAILY (route: oral) Med Classific ation: Cardiovas cular Therapy Agents atorvastati n 20 mg tablet 10-28 00:00: 00 Yes [id number] LOWERS CHOLESTEROL 1 tablet DAILY 1 tablet DAILY (route: oral) Med Classific ation: Cardiovas cular Therapy Agents cholecalcif swapna (vitamin D3) 25 mcg (1,000 unit) tablet 10-28 00:00: 00 Yes [id number] SUPPLEMENT 1 tablet DAILY 1 tablet DAILY (route: oral) Med Classific ation: Electroly te Balance-N utritiona l Products gabapentin 100 mg tablet 10-28 00:00: 00 Yes [id number] PAIN MANAGEMENT 1 tablet BEDTIME 1 tablet BEDTIME (route: oral) Med Classific ation: Central Nervous System Agents hydrochloro thiazide 12.5 mg tablet 10-28 00:00: 00 Yes [id number] FLUID RETENTION 1 tablet DAILY 1 tablet DAILY (route: oral) Med Classific ation: Cardiovas cular Therapy Agents insulin lispro (U-100) 100 unit/mL subcutaneou s pen 10-28 00:00: 00 Yes [id number] DIABETES Per instruc tions WITH MEALS Per instructio ns WITH MEALS (route: subcutaneo ) Med Classific ation: Endocrine lisinopril 40 mg tablet 10-28 00:00: 00 Yes [id number] LOWERS BLOOD PRESSURE 1 tablet DAILY 1 tablet DAILY (route: oral) Med Classific ation: Cardiovas cular Therapy Agents morphine 15 mg immediate release tablet 10-28 00:00: 00 Yes [id number] MODERATE PAIN 1 tablet EVERY 6 HOURS 1 tablet EVERY 6 HOURS (route: oral) Med Classific ation: Analgesic , Anti-infl ammatory or Antipyret ic omeprazole 20 mg capsule,del ayed release 10-28 00:00: 00 Yes [id number] GERD 1 capsule DAILY 1 capsule DAILY (route: oral) Med Classific ation: Gastroint estinal Therapy Agents prednisone 10 mg tablet 10-28 00:00: 00 Yes [id number] POLYMYALGIA 1 tablet DAILY 1 tablet DAILY (route: oral) Med Classific ation: Endocrine Tresiba FlexTouch U-100 insulin 100 unit/mL (3 mL) subcutaneou s pen 10-28 00:00: 00 Yes [id number] DIABETES 15 unit BEDTIME 15 unit BEDTIME (route: subcutaneo us) Med Classific ation: Endocrine naproxen 500 mg tablet 10-28 00:00: 00 Yes [id number] PAIN 1 tablet 2 TIMES DAILY 1 tablet 2 TIMES DAILY (route: oral) Med Classific ation: Analgesic , Anti-infl ammatory or Antipyret ic naproxen 500 mg tablet 11-18 00:00: 00 12-18 23:59 :00 No [id number] PAIN 1 tablet 2 TIMES DAILY 1 tablet 2 TIMES DAILY (route: oral) Med Classific ation: Analgesic , Anti-infl ammatory or Antipyret ic oxycodone 5 mg tablet 11-18 00:00: 00 Yes [id number] PAIN 1 tablet DAILY 1 tablet DAILY (route: oral) Med Classific ation: Analgesic , Anti-infl ammatory or Antipyret ic tramadol 50 mg tablet 12-18 00:00: 00 Yes [id number] SEVERE PAIN 1 tablet 3 TIMES DAILY [...] TO EVALUATE, OBSERVE / ASSESS, AND MONITOR, CONTROLLER INSTRUCTOR TO OBSERVE AND MONITOR, PROVIDE SKILLED THERAPEUTIC INTERVENTION, ACTIVITY, EDUCATION, AND TRAINING TO ADDRESS; [code = AGENCY MAY PERFORM A RESUMPTION OF CARE VISIT FOLLOWING ANY HOSPITAL ADMISSION. PT TO EVALUATE, OBSERVE / ASSESS, AND MONITOR, CONTROLLER INSTRUCTOR TO OBSERVE AND MONITOR, PROVIDE SKILLED THERAPEUTIC INTERVENTION, ACTIVITY, EDUCATION, AND TRAINING TO ADDRESS;] Future Scheduled Test PT/CONTROLLER INSTRUCTOR TO PROVIDE GAIT TRAINING FOR IMPROVED MOBILITY AND /OR TO NORMALIZE GAIT PATTERN [code = PT/CONTROLLER INSTRUCTOR TO PROVIDE GAIT TRAINING FOR IMPROVED MOBILITY AND /OR TO NORMALIZE GAIT PATTERN] Future Scheduled Test PT/CONTROLLER INSTRUCTOR TO PROVIDE STAIR TRAINING [code = PT/CONTROLLER INSTRUCTOR TO PROVIDE STAIR TRAINING] Future Scheduled Test NEUROMUSCU LAR RE-EDUCATION / BALANCE / POSTURAL CONTROL (PT) [code = NEUROMUSCULAR RE-EDUCATION / BALANCE / POSTURAL CONTROL (PT)] Future Scheduled Test THERAPEUTI C EXERCISES AND ESTABLISHING A HOME EXERCISE PROGRAM (PT/CONTROLLER INSTRUCTOR) [code = THERAPEUTIC EXERCISES AND ESTABLISHING A HOME EXERCISE PROGRAM (PT/CONTROLLER INSTRUCTOR)] Future Scheduled Test PT/CONTROLLER INSTRUCTOR TO IDENTIFY FALL RISK FACTORS; EDUCATE THE PATIENT/CAREGIVER ON WAYS TO REDUCE FALL RISK FACTORS AND ESTABLISH HOME EXERCISE PROGRAM TO MINIMIZE FALL RISK. MAY TEACH THE PATIENT FLOOR RECOVERY WHEN CLINICALLY APPROPRIATE [code = PT/CONTROLLER INSTRUCTOR TO IDENTIFY FALL RISK FACTORS; EDUCATE THE PATIENT/CAREGIVER ON WAYS TO REDUCE FALL RISK FACTORS AND ESTABLISH HOME EXERCISE PROGRAM TO MINIMIZE FALL RISK. MAY TEACH THE PATIENT FLOOR RECOVERY WHEN CLINICALLY APPROPRIATE] Future Scheduled Test PT/CONTROLLER INSTRUCTOR TO EDUCATE ON ARTHRITIS SELF-MANAGEMENT PT/CONTROLLER INSTRUCTOR MAY TEACH PATIENT APPLICATION OF CRYOTHERAPY/ HEAT FOR PAIN / SWELLING UP TO 20 MIN AT A TIME [code = PT/CONTROLLER INSTRUCTOR TO EDUCATE ON ARTHRITIS SELF-MANAGEMENT PT/CONTROLLER INSTRUCTOR MAY TEACH PATIENT APPLICATION OF CRYOTHERAPY/ HEAT FOR PAIN / SWELLING UP TO 20 MIN AT A TIME] Future Scheduled Test PT / CONTROLLER INSTRUCTOR M AY EDUCATE ON PAIN MANAGEMENT CLINICALLY INDICATED, INCLUDING NON-PHARMACOLOGICAL PAIN REDUCTION TECHNIQUES AND USE OF CRYOTHERAPY OR HEAT UP TO 20 MIN AT A TIME FOR PAIN MANAGEMENT [code = PT / CONTROLLER INSTRUCTOR MAY EDUCATE ON PAIN MANAGEMENT CLINICALLY INDICATED, INCLUDING NON-PHARMACOLOGICAL PAIN REDUCTION TECHNIQUES AND USE OF CRYOTHERAPY OR HEAT UP TO 20 MIN AT A TIME FOR PAIN MANAGEMENT] Future Scheduled Test PT / CONTROLLER INSTRUCTOR T O MONITOR FOR HYPO/HYPERGLYCEMIA AND CONDUCT ROUTINE FOOT INSPECTIONS. RECORD PATIENT REPORTED BLOOD SUGAR LEVELS AND NOTIFY PHYSICIAN AND/OR THE RN CLINICAL DEFENSIVE DRIVING INSTRUCTOR FOR PHYSICIAN NOTIFICATION IF BLOOD SUGAR LEVELS ARE OUTSIDE ORDERED PARAMETERS. TEACH PATIENT/CAREGIVER ON DAILY FOOT INSPECTIONS [code = PT / CONTROLLER INSTRUCTOR TO MONITOR FOR HYPO/HYPERGLYCEMIA AND CONDUCT ROUTINE FOOT INSPECTIONS. RECORD PATIENT REPORTED BLOOD SUGAR LEVELS AND NOTIFY PHYSICIAN AND/OR THE RN CLINICAL DEFENSIVE DRIVING INSTRUCTOR FOR PHYSICIAN NOTIFICATION IF BLOOD SUGAR LEVELS [...] End Date/Time Encounter Type Admission Type Attending [facility] Facility Care Department Encounter ID Discharge Date Discharge Status Discharge Condition Discharge Reason Percent Goals Met 2025-02-25 00:00:00 2025-04-25 00:00:00 Outpatient RECERTIFIC PANKAJ HASSAN [facility] [id number] 0.00
--- OUTSIDE RECORDS SUMMARY | 2025-04-24 19:00 | XMS_ITS | Clinical Summary ---
Author Organization Unknown Care Team Providers Care Network Security Officer Name Role Phone PO PRAKASH KIRAN Unavailable Unavaila ble FECTEAU PARA EDUCATOR, PHUONG Unavailable Unavailable KOREY RN, ALLY Unavailable Unavailable KEENA PT, PANKAJ Unavailable Unavailable Payers Payer Name Policy Type Policy Number Effective Date Expira tion Date MEDICARE[facility] [id number] Problems Condition Name Condition Details Condition Category [...] HYPERCHOLEST EROLEMIA, UNSPECIFIED Active 10-28 00:00: 00 CORRECTION (CURRENT) USE OF INSULIN Active 10-28 00:00: 00 AUDIENCE COORDINATOR (CURRENT) USE OF SYSTEMIC STEROIDS Active 10-28 00:00: 00 AUDIENCE COORDINATOR (CURRENT) USE OF OPIATE ANALGESIC Active 10-28 [...] 10-27 00:00: 00 10-28 00:00 :00 No [id number] Per instruc tions Per instructio ns (route: oral) Med Classific ation: Analgesic , Anti-infl ammatory or Antipyret ic Dexcom G6 Sensor device 10-26 00:00: 00 10-28 00:00 :00 No [id number] Unavailable Per instruc tions Per instructio ns (route: miscellane ous) Med Classific ation: Medical Supplies and Durable Medical Equipment (DME) gabapentin 100 mg capsule 10-21 00:00: 00 10-28 00:00 :00 No [id number] Per instruc tions Per instructio ns (route: oral) Med Classific ation: Central Nervous System Agents amlodipine 10 mg tablet 10-19 00:00: 00 10-28 00:00 :00 No [id number] ESSENTIAL (PRIMARY) HYPERTENSIO N Per instruc tions DAILY Per instructio ns DAILY (route: oral) Med Classific ation: Cardiovas cular Therapy Agents Carin 2nd Gen Pen Needle 32 gauge x 5/32 10-19 00:00: 00 10-28 00:00 :00 No [id number] Per instruc tions INSULIN 5 TIMES DAILY Per instructio ns INSULIN 5 TIMES DAILY (route: miscellane ous) Med Classific ation: Medical Supplies and Durable Medical Equipment (DME) lisinopril 40 mg tablet 10-19 00:00: 00 10-28 00:00 :00 No [id number] ESSENTIAL (PRIMARY) HYPERTENSIO N Per instruc tions DAILY Per instructio ns DAILY (route: oral) Med Classific ation: Cardiovas cular Therapy Agents baclofen 10 mg tablet 10-15 00:00: 00 10-28 00:00 :00 No [id number] Per instruc tions Per instructio ns (route: oral) Med Classific ation: Locomotor System tramadol 50 mg tablet 10-15 00:00: 00 10-28 00:00 :00 No [id number] Per instruc tions Per instructio ns (route: oral) Med Classific ation: Analgesic , Anti-infl ammatory or Antipyret ic amoxicillin 875 mg tablet 10-13 00:00: 00 10-28 00:00 :00 No [id number] Per instruc tions Per instructio ns (route: oral) Med Classific ation: Anti-Infe ctive Agents chlorhexidi ne gluconate 0.12 % mouthwash 10-13 00:00: 00 10-28 00:00 :00 No [id number] Per instruc tions Per instructio ns (route: mucous membrane) Med Classific ation: Mouth-Thr oat-Denta l - Preparati ons cyclobenzap rine 10 mg tablet 10-09 00:00: 00 10-28 00:00 :00 No [id number] Per instruc tions Per instructio ns (route: oral) Med Classific ation: Locomotor System tadalafil 10 mg tablet 10-08 00:00: 00 10-28 00:00 :00 No [id number] MALE ERECTILE DYSFUNCTION , UNSPECIFIED Per instruc tions EVERY OTHER DAY NEEDED FOR SEXUAL ACTIVITY APPROXIMAT GONZALEZ 30 MINUTES PER 24 HOURS Per instructio ns EVERY OTHER DAY NEEDED FOR SEXUAL ACTIVITY APPROXIMAT GONZALEZ 30 MINUTES PER 24 HOURS (route: oral) Med Classific ation: Drugs to treat Erectile Dysfuncti on Ketostix strips 10-05 00:00: 00 10-28 00:00 :00 No [id number] 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 Per instruc tions AND DISCARD 1 TEST STRIP EVERY DAY NEEDED Per instructio ns AND DISCARD 1 TEST STRIP EVERY DAY NEEDED (route: miscellane ous) Med Classific ation: Medical Supplies and Durable Medical Equipment (DME) acetaminoph en 325 mg tablet 10-28 00:00: 00 Yes [id number] PAIN 2 tablet EVERY 4 HOURS 2 tablet EVERY 4 HOURS (route: oral) Med Classific ation: Analgesic , Anti-infl ammatory or Antipyret ic amlodipine 10 mg tablet 10-28 00:00: 00 Yes [id number] LOWERS BLOOD PRESSURE 1 tablet DAILY 1 tablet DAILY (route: oral) Med Classific ation: Cardiovas cular Therapy Agents atorvastati n 20 mg tablet 10-28 00:00: 00 Yes [id number] LOWERS CHOLESTEROL 1 tablet DAILY 1 tablet DAILY (route: oral) Med Classific ation: Cardiovas cular Therapy Agents cholecalcif swapna (vitamin D3) 25 mcg (1,000 unit) tablet 10-28 00:00: 00 Yes [id number] SUPPLEMENT 1 tablet DAILY 1 tablet DAILY (route: oral) Med Classific ation: Electroly te Balance-N utritiona l Products gabapentin 100 mg tablet 10-28 00:00: 00 Yes [id number] PAIN MANAGEMENT 1 tablet BEDTIME 1 tablet BEDTIME (route: oral) Med Classific ation: Central Nervous System Agents hydrochloro thiazide 12.5 mg tablet 10-28 00:00: 00 Yes [id number] FLUID RETENTION 1 tablet DAILY 1 tablet DAILY (route: oral) Med Classific ation: Cardiovas cular Therapy Agents insulin lispro (U-100) 100 unit/mL subcutaneou s pen 10-28 00:00: 00 Yes [id number] DIABETES Per instruc tions WITH MEALS Per instructio ns WITH MEALS (route: subcutaneo ) Med Classific ation: Endocrine lisinopril 40 mg tablet 10-28 00:00: 00 Yes [id number] LOWERS BLOOD PRESSURE 1 tablet DAILY 1 tablet DAILY (route: oral) Med Classific ation: Cardiovas cular Therapy Agents morphine 15 mg immediate release tablet 10-28 00:00: 00 Yes [id number] MODERATE PAIN 1 tablet EVERY 6 HOURS 1 tablet EVERY 6 HOURS (route: oral) Med Classific ation: Analgesic , Anti-infl ammatory or Antipyret ic omeprazole 20 mg capsule,del ayed release 10-28 00:00: 00 Yes [id number] GERD 1 capsule DAILY 1 capsule DAILY (route: oral) Med Classific ation: Gastroint estinal Therapy Agents prednisone 10 mg tablet 10-28 00:00: 00 Yes [id number] POLYMYALGIA 1 tablet DAILY 1 tablet DAILY (route: oral) Med Classific ation: Endocrine Tresiba FlexTouch U-100 insulin 100 unit/mL (3 mL) subcutaneou s pen 10-28 00:00: 00 Yes [id number] DIABETES 15 unit BEDTIME 15 unit BEDTIME (route: subcutaneo us) Med Classific ation: Endocrine naproxen 500 mg tablet 10-28 00:00: 00 Yes [id number] PAIN 1 tablet 2 TIMES DAILY 1 tablet 2 TIMES DAILY (route: oral) Med Classific ation: Analgesic , Anti-infl ammatory or Antipyret ic naproxen 500 mg tablet 11-18 00:00: 00 12-18 23:59 :00 No [id number] PAIN 1 tablet 2 TIMES DAILY 1 tablet 2 TIMES DAILY (route: oral) Med Classific ation: Analgesic , Anti-infl ammatory or Antipyret ic oxycodone 5 mg tablet 11-18 00:00: 00 Yes [id number] PAIN 1 tablet DAILY 1 tablet DAILY (route: oral) Med Classific ation: Analgesic , Anti-infl ammatory or Antipyret ic tramadol 50 mg tablet 12-18 00:00: 00 Yes [id number] SEVERE PAIN 1 tablet 3 TIMES DAILY [...] TO EVALUATE, OBSERVE / ASSESS, AND MONITOR, PARA EDUCATOR TO OBSERVE AND MONITOR, PROVIDE SKILLED THERAPEUTIC INTERVENTION, ACTIVITY, EDUCATION, AND TRAINING TO ADDRESS; [code = AGENCY MAY PERFORM A RESUMPTION OF CARE VISIT FOLLOWING ANY HOSPITAL ADMISSION. PT TO EVALUATE, OBSERVE / ASSESS, AND MONITOR, PARA EDUCATOR TO OBSERVE AND MONITOR, PROVIDE SKILLED THERAPEUTIC INTERVENTION, ACTIVITY, EDUCATION, AND TRAINING TO ADDRESS;] Future Scheduled Test PT/PARA EDUCATOR TO PROVIDE GAIT TRAINING FOR IMPROVED MOBILITY AND /OR TO NORMALIZE GAIT PATTERN [code = PT/PARA EDUCATOR TO PROVIDE GAIT TRAINING FOR IMPROVED MOBILITY AND /OR TO NORMALIZE GAIT PATTERN] Future Scheduled Test PT/PARA EDUCATOR TO PROVIDE STAIR TRAINING [code = PT/PARA EDUCATOR TO PROVIDE STAIR TRAINING] Future Scheduled Test NEUROMUSCU LAR RE-EDUCATION / BALANCE / POSTURAL CONTROL (PT) [code = NEUROMUSCULAR RE-EDUCATION / BALANCE / POSTURAL CONTROL (PT)] Future Scheduled Test THERAPEUTI C EXERCISES AND ESTABLISHING A HOME EXERCISE PROGRAM (PT/PARA EDUCATOR) [code = THERAPEUTIC EXERCISES AND ESTABLISHING A HOME EXERCISE PROGRAM (PT/PARA EDUCATOR)] Future Scheduled Test PT/PARA EDUCATOR TO IDENTIFY FALL RISK FACTORS; EDUCATE THE PATIENT/CAREGIVER ON WAYS TO REDUCE FALL RISK FACTORS AND ESTABLISH HOME EXERCISE PROGRAM TO MINIMIZE FALL RISK. MAY TEACH THE PATIENT FLOOR RECOVERY WHEN CLINICALLY APPROPRIATE [code = PT/PARA EDUCATOR TO IDENTIFY FALL RISK FACTORS; EDUCATE THE PATIENT/CAREGIVER ON WAYS TO REDUCE FALL RISK FACTORS AND ESTABLISH HOME EXERCISE PROGRAM TO MINIMIZE FALL RISK. MAY TEACH THE PATIENT FLOOR RECOVERY WHEN CLINICALLY APPROPRIATE] Future Scheduled Test PT/PARA EDUCATOR TO EDUCATE ON ARTHRITIS SELF-MANAGEMENT PT/PARA EDUCATOR MAY TEACH PATIENT APPLICATION OF CRYOTHERAPY/ HEAT FOR PAIN / SWELLING UP TO 20 MIN AT A TIME [code = PT/PARA EDUCATOR TO EDUCATE ON ARTHRITIS SELF-MANAGEMENT PT/PARA EDUCATOR MAY TEACH PATIENT APPLICATION OF CRYOTHERAPY/ HEAT FOR PAIN / SWELLING UP TO 20 MIN AT A TIME] Future Scheduled Test PT / PARA EDUCATOR M AY EDUCATE ON PAIN MANAGEMENT CLINICALLY INDICATED, INCLUDING NON-PHARMACOLOGICAL PAIN REDUCTION TECHNIQUES AND USE OF CRYOTHERAPY OR HEAT UP TO 20 MIN AT A TIME FOR PAIN MANAGEMENT [code = PT / PARA EDUCATOR MAY EDUCATE ON PAIN MANAGEMENT CLINICALLY INDICATED, INCLUDING NON-PHARMACOLOGICAL PAIN REDUCTION TECHNIQUES AND USE OF CRYOTHERAPY OR HEAT UP TO 20 MIN AT A TIME FOR PAIN MANAGEMENT] Future Scheduled Test PT / PARA EDUCATOR T O MONITOR FOR HYPO/HYPERGLYCEMIA AND CONDUCT ROUTINE FOOT INSPECTIONS. RECORD PATIENT REPORTED BLOOD SUGAR LEVELS AND NOTIFY PHYSICIAN AND/OR THE RN CLINICAL SENIOR TECHNICAL ANALYST FOR PHYSICIAN NOTIFICATION IF BLOOD SUGAR LEVELS ARE OUTSIDE ORDERED PARAMETERS. TEACH PATIENT/CAREGIVER ON DAILY FOOT INSPECTIONS [code = PT / PARA EDUCATOR TO MONITOR FOR HYPO/HYPERGLYCEMIA AND CONDUCT ROUTINE FOOT INSPECTIONS. RECORD PATIENT REPORTED BLOOD SUGAR LEVELS AND NOTIFY PHYSICIAN AND/OR THE RN CLINICAL SENIOR TECHNICAL ANALYST FOR PHYSICIAN NOTIFICATION IF BLOOD SUGAR LEVELS [...] [facility] [id number] 0.00
== END 2025-03-16 09:47 | disposition home or self-care (01) ==
LOC: HO.HMCH 08:52
PROVIDERS: PCP Internal Medicine; Visit Provider Internal Medicine
DX: E11.65 Type 2 diabetes mellitus with hyperglycemia (principal); Z79.4 Long term (current) use of insulin; I10 Essential (primary) hypertension; E78.00 Pure hypercholesterolemia, unspecified; K21.9 Gastro-esophageal reflux disease without esophagitis; M35.3 Polymyalgia rheumatica; M25.552 Pain in left hip; M48.061 Spinal stenosis, lumbar region without neurogenic claudication; K59.00 Constipation, unspecified; M79.605 Pain in left leg; N28.9 Disorder of kidney and ureter, unspecified; Z23 Encounter for immunization

== ENCOUNTER 2025-03-19 07:36 | Inpatient (IN) | payer MEDICARE, OTHER, MEDICAID, SELFPAY ==
--- NOTE | ~2025-03-19 | CT_ITS ---
EXAMINATION: CT ABDOMEN AND PELVIS WITHOUT CONTRAST CLINICAL INFORMATION: fall with abdominal trauma and back pain COMPARISON: March 19, 2007 abdomen pelvis and left hip on October 27, 2024 TECHNIQUE: Multidetector volumetric imaging was performed from the superior aspect of the liver through the pubic symphysis. Sagittal and coronal reformatted images were obtained on the technologist's workstation. This CT examination was performed using dose optimization techniques as appropriate, variously including the following: *Automated exposure control *Adjustment of mA and/or kV according to patient size (this includes techniques or standardized protocols for targeted exams where dose is matched to indication/reason for exam; i.e. extremities or head) *Use of iterative reconstruction technique FINDINGS: LIVER, GALLBLADDER, AND BILIARY TREE: The liver is normal in size, shape, and attenuation. No focal hepatic lesion or biliary ductal dilatation is present. The gallbladder is unremarkable with no evidence of radiopaque gallstones, gallbladder wall thickening, or obvious pericholecystic inflammatory changes. PANCREAS: Unremarkable. SPLEEN: Unremarkable. ADRENAL GLANDS: Unremarkable. KIDNEYS AND URETERS: There is an exophytic cyst involving anterior superior right kidney measuring 2.0 x 2.9 cm possibly with hairline thin calcification in the deep wall (Bosniak 2). There is a second simple renal cyst in the mid to lower right kidney anteriorly measuring approximately 4.8 cm long axis. There is a 2 mm nonobstructing stone in the lower pole the right kidney. There is an 18 mm exophytic simple renal cyst in the lower pole of the left kidney. BLADDER: Unremarkable. GASTROINTESTINAL TRACT: The small and large bowel are unremarkable. The appendix is unremarkable. ABDOMINAL WALL: No significant hernia is appreciated. LYMPH NODES: Normal. VASCULAR: Moderate vascular calcifications are present. PELVIC VISCERA: There is coarse calcification in the prostate. OSSEOUS STRUCTURES: Multilevel degenerative changes are moderate in the thoracal lumbar spine with disc space narrowing, vacuum phenomena, degenerative cyst, and osteophytes. There is severe degenerative change in the left hip joint with sclerosis, degenerative cystic change, osteophytes, and subchondral collapse of the femoral head. This has progressed since the CT on October 27, 2024 There is also faint calcific density visible in the joint capsule CT/CT abdomen pelvis wo IV con IMPRESSION: No acute abnormality. 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 Moderate degenerative changes are evident in the thoracolumbar spine. Fleischner guidelines were followed. Electronically signed by: Neymar Rosenberg MD 03/19/2025 11:10 AM [facility]
--- NOTE | ~2025-03-19 | CT_ITS ---
EXAMINATION: CT CERVICAL SPINE WITHOUT IV CONTRAST HISTORY: frequent falls inability to walk. TECHNIQUE: Helical CT of the cervical spine was performed per standard departmental protocol. Coronal and sagittal reformatted images were also evaluated. One or more of the following techniques was used for dose reduction: Automated exposure control, adjustment of the mA and/or kV according to patient size, use of iterative reconstruction technique. DLP: 449 mGy-cm COMPARISON: There are no prior studies available for comparison. FINDINGS: CERVICAL SPINE: The vertebral bodies maintain normal height and alignment without evidence of fracture or subluxation. There is moderate degenerative disc disease at the C5-6 and C6-7 levels, with disc space narrowing and osteophyte formation. Evaluation for disc pathology is limited by lack of intrathecal contrast material, however. BRAIN: The visualized portion of the brain is unremarkable. SINUSES: The visualized paranasal sinuses, mastoid air cells and middle ear cavities are unremarkable. LUNG APICES: The visualized lung apices are clear. SOFT TISSUES: The visualized paraspinal soft tissues are unremarkable. CT/CT cervical spine wo IV con IMPRESSION: No evidence of fracture or malalignment of the cervical spine. Degenerative changes as described. Electronically signed by: Sunday Preciado MD 03/19/2025 10:58 AM EST
--- NOTE | ~2025-03-19 | CT_ITS ---
EXAMINATION: CT HEAD WITHOUT IV CONTRAST HISTORY: fall HS inability to ambulate. TECHNIQUE: Unenhanced helical CT of the head was performed per standard departmental protocol. Coronal and sagittal reformats of the head were also evaluated. One or more of the following techniques was used for dose reduction: Automated exposure control, adjustment of the mA and/or kV according to patient size, use of iterative reconstruction technique. DLP: 731 mGy-cm COMPARISON: There are no prior studies available for comparison. FINDINGS: BRAIN: There is diffuse prominence of the ventricular system and cortical sulci, consistent with atrophy. Periventricular and subcortical white matter hypodensities are noted which are nonspecific, but often seen in the setting of small vessel ischemic disease. There is no mass effect or midline shift. No intra- or extra-axial fluid collections are identified. SINUSES: The visualized paranasal sinuses are clear. The mastoid air cells and middle ear cavities are well pneumatized. ORBITS: The visualized orbits are unremarkable. BONES/SOFT TISSUES: The extracranial soft tissues are unremarkable. The calvarium is intact. No suspicious lytic or sclerotic lesions. CT/CT head/brain wo IV con IMPRESSION: No evidence of intracranial hemorrhage. Electronically signed by: Sunday Preciado MD 03/19/2025 11:00 AM [facility]
--- NOTE | ~2025-03-19 | US_ITS ---
EXAMINATION: US TRIPLEX LOWER EXTREMITY, BILATERAL CLINICAL INFORMATION: b/l LE swelling COMPARISON: None available. TECHNIQUE: Color-flow triplex imaging with spectral analysis and compression Doppler were performed on the bilateral lower extremities. FINDINGS: Respiratory variation, normal compression and augmented flow are noted throughout the bilateral lower extremities. The visualized common femoral vein, greater saphenous vein, femoral vein, profunda femoral vein, popliteal vein and midcalf peroneal and posterior tibial venous segments show no evidence of deep venous thrombosis bilaterally. Soft tissue edema noted in the bilateral distal calf. US/US venous duplex LE BI IMPRESSION: No evidence of deep venous thrombosis involving the bilateral lower extremities. Soft tissue edema in bilateral distal calf. Electronically signed by: Yuri Dotson MD 03/19/2025 09:26 AM [facility] [place], [place]
--- NOTE | ~2025-03-19 | XR_ITS ---
EXAMINATION: XR CHEST CLINICAL INFORMATION: sob COMPARISON: None available. TECHNIQUE: Frontal view of the chest was obtained. FINDINGS: The cardiac, hilar, and mediastinal contours are normal. The lungs are clear bilaterally. No pneumothorax or effusion. No focal osseous or soft tissue abnormality. There are healed right rib fractures. XR/XR chest 1V IMPRESSION: No active pulmonary disease. Electronically signed by: Jared Mccullough MD 03/19/2025 09:51 AM [facility]
--- NOTE | ~2025-03-19 | MR_ITS ---
CLINICAL HISTORY: n/a MR lumbar spine without contrast. COMPARISON: MR lumbar spine dated 12/26/24 at 10:50 EDT FINDINGS: Normal alignment of the anterior and posterior elements without evidence of subluxation. Vertebral heights are maintained. Heterogeneous bone marrow consistent with fatty replacement, similar to prior imaging. Small Schmorl's node at the inferior endplate of L3, developed from prior imaging. Likely mild type 1 Modic degenerative changes at L3-4, similar to prior imaging. Modic type 1 degenerative changes of the inferior endplate of L5. The conus terminates at inferior endplate of L1 and is otherwise unremarkable. Visualized portions of the sacrum are normal. L5-S1: Loss of disc space height. Desiccation of the disc. Mild broad-based posterior disc bulge. Facet joint arthrosis. Ligamentum flavum hypertrophy. Mild spinal canal stenosis at this level. Mild bilateral neural foraminal narrowing. L4-L5: Anterior marginal osteophytes. Loss of disc space height. Mild broad-based posterior disc bulge. Ligamentum flavum hypertrophy. Mild spinal canal stenosis at this level. Facet joint arthrosis. Moderate right and mild left neural foraminal narrowing. L3-L4: Anterior marginal osteophytes. Loss of disc space height. Mild broad-based posterior disc bulge. Ligamentum flavum hypertrophy. Facet joint arthrosis. Mild spinal canal stenosis at this level. Mild bilateral neural foraminal narrowing. L2-L3: Anterior marginal osteophytes. Loss of disc space height. Mild posterior disc bulge. Ligamentum flavum hypertrophy. Facet joint arthrosis. Mild bilateral neural foraminal narrowing, [id number]. L1-L2: Anterior marginal osteophytes. Loss of disc space height. Mild posterior disc bulge. Ligamentum flavum hypertrophy. Mild spinal canal stenosis at this level. Mild bilateral neural foraminal narrowing. Fatty atrophy of the paraspinal musculature, similar to prior imaging. Bilateral renal simple cysts measuring up to 4.7 cm on the right. IMPRESSION: 1. No evidence of acute injury to the lumbar spine. 2. Small Schmorl's node of the inferior endplate of L3, developed from prior imaging. 3. Multilevel mild spinal canal stenosis, similar to prior imaging. 4. Moderate to advanced multilevel lumbar spondylosis with multilevel mild neural foraminal narrowing. This document has been electronically signed by: Micah Springer MD on 03/19/2025 19:30:57
--- NOTE | ~2025-03-19 | CT_ITS ---
EXAMINATION: CT CHEST WITHOUT CONTRAST CLINICAL INFORMATION: Frequent falls with chest trauma, inability to walk. Evaluate the spine. COMPARISON: No prior chest CT available. TECHNIQUE: Multidetector volumetric CT imaging of the chest was done. Axial MIP volume rendering provided. Sagittal and coronal reformatted images were obtained. This CT examination was performed using dose optimization techniques as appropriate, variously including the following: *Automated exposure control *Adjustment of mA and/or kV according to patient size (this includes techniques or standardized protocols for targeted exams where dose is matched to indication/reason for exam; i.e. extremities or head) *Use of iterative reconstruction technique FINDINGS: LUNGS: The lungs are clear without evidence of abnormal opacity, pleural effusion, or pneumothorax. The small airways demonstrate normal appearance. The central airways are patent. There is a 3 mm nonspecific nodule in the posterior right upper lobe (series 26, image 48). There are a few additional scattered micronodules present, nonspecific. No suspicious nodules are seen. There are a few scattered calcified granulomata. MEDIASTINUM: There is a 1.1 cm nodule in the right thyroid lobe. Imaged thyroid is otherwise normal. There is no mediastinal lymphadenopathy or mass. There is mild ectasia of the ascending aorta at 4.0 cm diameter. There is no aneurysm. The pulmonary trunk is normal in diameter. The heart size is normal. There is no pericardial effusion. There are mild to moderate coronary calcifications. No esophageal abnormalities. The central airways are normal. AXILLA\CHEST WALL: No mass or abnormal lymph nodes. There is mild bilateral male gynecomastia. UPPER ABDOMEN: Refer to the dedicated CT abdomen pelvis performed concurrently. OSSEOUS STRUCTURES: There is a mild S-shaped thoracic spine scoliosis with mildly exaggerated kyphosis. There are multilevel moderate degenerative changes present. There is no fracture or compression deformity. No suspicious bone lesion. No definite acute rib fractures. CT/CT chest wo IV con IMPRESSION: 1. The lungs are clear. There is no active pulmonary disease. 2. There are no acute fractures identified. There are degenerative changes throughout the spine. 3. There are ancillary findings as discussed in the body of the report. Electronically signed by: Jared Mccullough MD 03/19/2025 11:04 AM [facility]
--- NOTE | 2025-03-19 07:58 | ECG_ITS ---
Test Reason : weakness Blood Pressure : */* mmHG Vent. Rate : 70 BPM Atrial Rate : 70 BPM P-R Int : 174 ms QRS Dur : 82 ms QT Int : 366 ms P-R-T Axes : 51 64 61 degrees QTcB Int : 395 ms Normal sinus rhythm Normal ECG When compared with ECG of 13-Mar-2017 16:11, T wave amplitude has decreased in Anterior leads Referred By: Javon Cam Electronically Signed By: SHAKIR ABREU
[2025-03-19 08:00] VITALS: BP 130/54; PULSE 79; RESP 10; TEMP 36.3; O2SAT 97; BMI 21.1
--- NOTE | 2025-03-19 08:04 | ED.GENADULT ---
HPI - General Adult General Chief complaint: Extremity Problem Stated complaint: unable to walk Time Seen by Provider: 03/19/25 07:40 Source: patient and family Mode of arrival: ambulatory Limitations: other (poor historian ) History of Present Illness ED Provider: KELI Cam HPI narrative: Chief Complaint: ?I can?t walk. My legs are useless and hurt.? History of Present Illness: The patient presents with a sudden inability to walk that began in the early evening (approximately 4?7 PM) today, describing her legs as useless and painful but without focal weakness or heaviness. He reports chronic difficulty ambulating since the summer, for which He underwent an MRI and is scheduled for EMG to evaluate for diabetic neuropathy or spinal pathology. Last night, He was evaluated at [facility], received unspecified medications, and was discharged around 05:30 PM; He was unable to walk at discharge. He called an ambulance but was not transported to this facility, instead seeking care here because his physicians are based at this hospital. The patient notes his left leg is more swollen and red than the right, with chronic swelling now acutely worsened and associated with pain. He has experienced two falls over the past few months, with the most recent fall occurring over a month ago. He lives with his . He denies chest pain, shortness of breath, nausea, vomiting, or abdominal pain, and endorses chills (feeling cold) but no fevers. He received an influenza vaccination on Saturday and subsequently had two nights of poor sleep, and does associate his current symptoms with the vaccine. Related Data Home Medications ?Medication ?Instructions ?Recorded ?Confirmed cholecalciferol (vitamin D3) 25 25 mcg PO DAILY 03/16/20 03/19/25 mcg (1,000 unit) capsule lisinopril 40 mg tablet 40 mg PO DAILY 03/16/20 03/19/25 insulin degludec 100 unit/mL (3 15 unit subcut DAILY 07/10/21 03/19/25 mL) subcutaneous pen (Tresiba FlexTouch U-100 insulin) hydrochlorothiazide 12.5 mg tablet 12.5 mg PO DAILY 10/17/21 03/19/25 insulin lispro 100 unit/mL 1 sliding scale dose subcut QIDWMHS 08/27/23 03/19/25 subcutaneous pen (Admelog SoloStar U-100 Insulin lispro) blood-glucose sensor (Dexcom G6 #1 ea 10/15/24 03/16/25 Sensor device) blood-glucose transmitter (Dexcom #1 ea 10/15/24 03/16/25 G6 Transmitter device) pen needle, diabetic 32 gauge x #1,200 ea 10/15/24 03/16/25 acetaminophen 325 mg tablet 325 mg PO QID PRN Pain 03/19/25 03/19/25 Previous Rx's ?Medication ?Instructions ?Recorded omeprazole 20 mg capsule,delayed 20 mg PO DAILY #90 caps 03/28/24 release tadalafil 10 mg tablet 10 mg PO Q OTHER DAY PRN sexual 05/05/24 activity #30 tabs atorvastatin 20 mg tablet 20 mg PO DAILY #90 tabs 06/28/24 naproxen 500 mg tablet,delayed 500 mg PO BID PRN pain (scale 10/27/24 release score 4-6) #30 tabs walker #1 ea 10/27/24 amlodipine 10 mg tablet 10 mg PO DAILY #90 tabs 02/20/25 tramadol 50 mg tablet 50 mg PO TID PRN severe pain 15 02/23/25 days #45 tabs gabapentin 100 mg capsule 100 mg PO BEDTIME #30 caps 03/16/25 sennosides 8.6 mg-docusate sodium 2 tab-cap (2 x 8.6-50 mg) PO 03/16/25 50 mg tablet (Senna Plus) BEDTIME #60 tabs Allergies Allergy/AdvReac Type Severity Reaction Status Date / Time meloxicam Allergy Unknown Unknown Verified 03/19/25 08:02 simvastatin Allergy Unknown Unknown Verified 03/19/25 08:02 Review of Systems Review of Systems: ? Constitutional: Reports chills; no fevers discussed. ? Musculoskeletal: Sudden inability to walk; bilateral leg pain; left leg swelling and redness. ? Neurologic: Denies focal weakness; symptoms thought possibly related to neuropathy vs spine per prior providers. ? Cardiovascular/Respiratory: Denies chest pain or shortness of breath. ? GI: Denies nausea, vomiting, abdominal pain. (Other systems not specifically reviewed.) Yes all other systems are reviewed and are negative PMFSH Past Medical History Attestation statement: The following information was validated with the patient. Source: old records reviewed and nursing notes reviewed Medical History Left leg weakness Osteopenia Erectile dysfunction Type 2 diabetes mellitus with hyperglycemia Polymyalgia rheumatica Thrombocytopenia Hypercholesterolemia GERD (gastroesophageal reflux disease) Carpal tunnel syndrome Diabetic neuropathy Hypertension Surgical History History of carpal tunnel release Family History Family History Father Hypertension CVD (cardiovascular disease) Mother Cancer Social History Social History Household Members: Spouse Housing: House Do you presently have visiting nurse or other home services: No Alcohol intake: current Alcohol intake frequency: 0-2 drinks per day Alcohol type: hard liquor Patient Tobacco Use Status: Former Tobacco user Tobacco use type: Cigarette Years Smoked: quit 2005 e-Cigarette/Vaping Use: Never Used Second Hand Smoke Exposure: Yes service: No Current occupational status: retired Cognitive needs: No Hearing needs: No Vision needs: Yes (Glasses) Physical Exam ED Vital Signs: Vital Signs - 24 hr 03/19/25 08:00 03/19/25 08:08 Temperature 97.4 F Pulse Rate 79 71 Respiratory Rate 10 L 12 Blood Pressure 130/54 L 112/55 L Pulse Oximetry 97 100 Oxygen Delivery Method Room Air Room Air BMI result Body Mass Index 21.1 Course Course Course Narrative: Attending note, Dr. Ayoub: I was present for and assisted with the performance of the lumbar puncture. Reevaluation(s) Reevaluation #1: Patient's CBC with a normocytic anemia. Chemistry with elevated BUN and creatinine with acute kidney injury gentle hydration ordered. Patient's CPK normal. Coags are unremarkable. Salicylates, acetaminophen ethanol 15. Chest x-ray no active pulmonary disease. Venous duplex you no evidence of DVT involving the bilateral lower extremities. Soft tissue edema and bilateral distal calves. CT scans pending Time: 10:14 Reevaluation #2: CT of head no evidence of intracranial hemorrhage. CT of the cervical spine no evidence of fracture malalignment degenerative changes noted. CT of the chest lungs are clear there is no acute cardiopulmonary disease no acute fractures identified degenerative changes throughout the spine. 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 I obtained verbal and written consent for lumbar puncture. Patient would like to proceed this is being done with an indication to rule out Guillain-[place] as patient had worsening weakness and inability to walk status post flu shot. Lumbar puncture was performed at the bedside with my attending Dr. Ayobu without complications. Prior to the procedure I did do a time-out. Patient's name, date of , procedure and indication were reviewed. Again patient gave consent he verbalizes the risks and benefits of procedure. It was done in a sterile fashion. Time: 12:10 Reevaluation #3: Patient re-evaluated no reported headache. He is feeling well. Analysis is CSF pending Time: 12:47 Additional Reevaluation(s): CSF w/ isolated hyperprotenemia / Fidelina [place] will reach out to neurology for input Eloy said likely mechanical- recommended lumbosacral MR w/o contrast Medications Administered Generic Name Dose Route Start Last Admin Trade Name Freq PRN Reason Stop Dose Admin Acetaminophen 650 mg 03/19/25 15:17 03/19/25 17:47 Acetaminophen 325 Mg Tablet PO 650 mg Q6H PRN Administration Pain, Mild 1-3,fever,headache Insulin Human Lispro 0 unit 03/19/25 16:30 03/20/25 08:16 Insulin Lispro 100 Unit/Ml 3 Ml Vial SUBCUT 6 unit QIDACHS [facility] Administration Protocol Sodium Chloride 3 ml 03/19/25 16:00 03/20/25 08:17 0.9 % Sodium Chloride Flush 3 Ml Syringe IVFLUSH 3 ml QSHIFT [facility] Administration Discontinued Medications Generic Name Dose Route Start Last Admin Trade Name Freq PRN Reason Stop Dose Admin Dexamethasone Sodium Phosphate 10 mg 03/19/25 14:44 03/19/25 15:16 Dexamethasone Sod Phosphate 10 Mg/Ml Vial IVPUSH 03/19/25 14:45 10 mg ONCE ONE Administration Gabapentin 200 mg 03/19/25 12:17 03/19/25 13:04 Gabapentin 100 Mg Capsule PO 03/19/25 12:18 200 mg ONCE ONE Administration Sodium Chloride 1,000 mls @ 999 mls/hr 03/19/25 10:15 03/19/25 15:14 Ns IV 03/19/25 11:15 Infused .Q1H1M APOLLO Infusion Lactated Ringer's 1,000 mls @ 80 mls/hr 03/19/25 15:45 03/19/25 19:47 Lr IVCONT 03/20/25 04:14 80 mls/hr .[id number] APOLLO Infusion Lidocaine HCl 5 ml 03/19/25 11:48 03/19/25 12:19 Lidocaine Hcl 1 % Mpf 5 Ml Vial INFILTRATI 03/19/25 11:49 5 ml ONCE ONE Administration Procedures Lumbar Puncture Time Out Performed: Yes Patient Position: upright Skin Prep: Povidone-Iodine 1% Local Anesthetic: lidocaine 1% Amount of anesthesia used (mL): 5 Spinal Needle Gauge: 22G Interspace Used: L4-L5 Fluid Initially Obtained: clear Complications: none Additional Comments: Fluids sent out for analysis. Medical Decision Making Medical Decision Making [facility] Narrative: 08 Patient with subacute to acute worsening inability to ambulate and left lower extremity swelling/redness after recent evaluation at outside facility. Differential includes infectious (cellulitis, DVT), neurologic, and musculoskeletal etiologies. Further evaluation underway. Problem #1: Acute inability to ambulate / bilateral leg pain Assessment: Sudden worsening this evening; previously evaluated with MRI; scheduled EMG. Currently unable to stand or walk. Given the acute onset of bilateral leg pain and inability to ambulate, as well as recent influenza vaccination, Guillain-Guillermo? syndrome is being considered as a possible acute neurologic etiology. Plan: Labs Urine Imaging due to recent falls Possible LP if workup negative Problem #2: Left lower extremity swelling and redness Assessment: Left leg significantly more swollen and erythematous than right per exam and patient report; etiology unclear (possible cellulitis vs DVT vs chronic edema with acute exacerbation). Plan: Labs DVT study b/l Unlikely arterial as pulses are palpable Possibly neuropathy Differential Diagnosis Differential Diagnoses: The differential diagnosis associated with the presentation includes Deep vein thrombosis (DVT) Cellulitis Acute on chronic neuropathy (e.g., diabetic neuropathy) Spinal cord pathology (e.g., compression, stenosis) Guillain-Guillermo? syndrome (acute inflammatory demyelinating polyneuropathy, considered due to acute onset of bilateral symptoms and recent vaccination) Medication side effect Acute arthritis (e.g., gout, pseudogout) Fracture (occult or missed on prior imaging) Other musculoskeletal causes (e.g., acute exacerbation of chronic arthritis) Vascular insufficiency (e.g., arterial occlusion) Other infectious etiologies (e.g., abscess) Admission/Observation Consideration of admission/observation: Escalation of care including admission/observation considered Consult Healthcare Provider Management of the patient was discussed with: Hospitalist and Financial Analyst Intern Lab Data MDM Lab Attestation statement: I reviewed the patient's lab results. 03/20/25 06:47 03/20/25 06:47 Labs: Lab Results 03/19/25 03/19/25 03/19/25 Range/Units 08:18 11:34 12:17 WBC 7.2 (4.8-10.8) X10*3/uL RBC 3.49 L (4.60-5.80) X10*6/uL Hgb 10.3 L D (14.0-18.0) g/dl Hct 31.3 L D (42.0-52.0) % MCV 89.7 (80.0-98.0) fL MCH 29.5 (27.0-33.0) pg MCHC 32.9 (31.0-36.0) g/dl RDW 12.7 (11.0-16.0) % Plt Count 236 D (160-400) X10*3/uL MPV 9.9 (9.4-12.4) fL Immature Gran % (Auto) 0.3 (0.0-0.4) % Neut % (Auto) 67.2 (45-73) % Lymph % (Auto) 21.5 (20-40) % Chaves % (Auto) 9.4 (2-11) % Eos % (Auto) 1.0 (0-4) % Baso % (Auto) 0.6 (0-2) % Lymph # (Auto) 1.5 (1.2-4.9) X10*3/uL Chaves # (Auto) 0.7 (0.1-1.2) X10*3/uL Eos # (Auto) 0.1 (0.0-0.4) X10*3/uL Baso # (Auto) 0.0 (0.0-0.2) X10*3/uL Abs Immat Gran (auto) 0.02 (0.00-0.03) X10*3/uL Absolute Neuts (auto) 4.8 (2.0-8.3) x10*3/uL Absolute Nucleated RBC 0.000 (0.0-0.012) X10*3/uL Nucleated RBC % (auto) 0.0 (0.0-0.2) /100WBC ESR 87 H (0-15) MM/HR PT 12.6 (11.2-13.5) SEC INR 1.0 (0.9-1.1) Sodium 141 (135-145) mmol/L Potassium 4.0 D (3.3-5.1) mmol/L Chloride 108 (96-108) mmol/L Carbon Dioxide 26 (22-29) mmol/L Anion Gap 11 L (12-20) BUN 49 H (9-16) mg/dL Creatinine 1.57 H (0.5-1.4) mg/dL Estim Creat Clear Calc 37.4 Estimated GFR 43 Random Glucose 257 H (60-115) mg/dL Lactic Acid 0.9 (0.5-2.0) mmol/L Calcium 10.4 H (8.4-10.2) mg/dL Magnesium 2.1 (1.6-2.6) mg/dL Total Bilirubin 0.4 (0.0-1.0) mg/dL AST 19 (5-37) U/L ALT 16 (0-40) U/L Alkaline Phosphatase 91 (39-117) U/L Total Creatine Kinase 119 (38-174) U/L C-Reactive Protein 4.60 H (< or = 0.50) mg/dL NT-Pro-B Natriuret Pep 222.6 (<300) pg/mL Total Protein 7.4 (6.5-8.0) g/dL Albumin 4.2 (3.5-5.0) g/dL Urine Color Yellow Urine Appearance Clear Urine pH 5.5 (5.0-9.0) Ur Specific [place] 1.020 (1.005-1.025) Urine Protein Negative (Neg-Trace) mg/dL Urine Glucose (UA) 500 H (Negative) mg/dL Urine Ketones Negative (Negative) mg/dL Urine Blood Negative (Negative) Urine Nitrite Negative (Negative) Ur Leukocyte Esterase Negative (Negative) CSF Tube Number 2 CSF Volume ML CSF Appearance CSF Color CSF WBC MM*3 CSF RBC MM*3 CSF Lymphocytes % CSF Monocytes % % CSF Appearance (b) CSF Glucose mg/dL CSF Total Protein (15-45) mg/dL CSF C.neoform/gat PCR (Not Detect.) CSF CMV DNA (PCR) (Not Detect.) CSF Enterovirus (PCR) (Not Detect.) CSF E. coli K1 (PCR) (Not Detect.) CSF H. influenzae (PCR) (Not Detect.) CSF HSV I (PCR) (Not Detect.) CSF HSV II (PCR) (Not Detect.) CSF HHV 6 (PCR) (Not Detect.) CSF L.monocytogenes PCR (Not Detect.) CSF N. meningitidis PCR (Not Detect.) CSF Parechovirus (PCR) (Not Detect.) CSF S. agalactiae (PCR) (Not Detect.) CSF S. pneumoniae (PCR) (Not Detect.) CSF VZV (PCR) (Not Detect.) Salicylates < 5.0 L (15-30) mg/dL Urine Opiates Screen POSITIVE H (Not Detect) Ur Buprenorphine Scrn Not Detected (Not Detect) ng/mL Ur Oxycodone Screen Not Detected (Not Detect) ng/mL Urine Methadone Screen Not Detected (Not Detect) ng/mL Urine Fentanyl Screen Not Detected (Not Detect) Acetaminophen < 3 (<30) mcg/mL Ur Barbiturates Screen Not Detected (Not Detect) Ur Phencyclidine Scrn Not Detected (Not Detect) Ur Amphetamines Screen Not Detected (Not Detect) U Benzodiazepines Scrn Not Detected (Not Detect) Urine Cocaine Screen Not Detected (Not Detect) U Marijuana (THC) Screen Not Detected (Not Detect) Ethyl Alcohol 15 mg/dL 03/19/25 Range/Units 12:17 WBC (4.8-10.8) X10*3/uL RBC (4.60-5.80) X10*6/uL Hgb (14.0-18.0) g/dl Hct (42.0-52.0) % MCV (80.0-98.0) fL MCH (27.0-33.0) pg MCHC (31.0-36.0) g/dl RDW (11.0-16.0) % Plt Count (160-400) X10*3/uL MPV (9.4-12.4) fL Immature Gran % (Auto) (0.0-0.4) % Neut % (Auto) (45-73) % Lymph % (Auto) (20-40) % Chaves % (Auto) (2-11) % Eos % (Auto) (0-4) % Baso % (Auto) (0-2) % Lymph # (Auto) (1.2-4.9) X10*3/uL Chaves # (Auto) (0.1-1.2) X10*3/uL Eos # (Auto) (0.0-0.4) X10*3/uL Baso # (Auto) (0.0-0.2) X10*3/uL Abs Immat Gran (auto) (0.00-0.03) X10*3/uL Absolute Neuts (auto) (2.0-8.3) x10*3/uL Absolute Nucleated RBC (0.0-0.012) X10*3/uL Nucleated RBC % (auto) (0.0-0.2) /100WBC ESR (0-15) MM/HR PT (11.2-13.5) SEC INR (0.9-1.1) Sodium (135-145) mmol/L Potassium (3.3-5.1) mmol/L Chloride (96-108) mmol/L Carbon Dioxide (22-29) mmol/L Anion Gap (12-20) BUN (9-16) mg/dL Creatinine (0.5-1.4) mg/dL Estim Creat Clear Calc Estimated GFR Random Glucose (60-115) mg/dL Lactic Acid (0.5-2.0) mmol/L Calcium (8.4-10.2) mg/dL Magnesium (1.6-2.6) mg/dL Total Bilirubin (0.0-1.0) mg/dL AST (5-37) U/L ALT (0-40) U/L Alkaline Phosphatase (39-117) U/L Total Creatine Kinase (38-174) U/L C-Reactive Protein (< or = 0.50) mg/dL NT-Pro-B Natriuret Pep (<300) pg/mL Total Protein (6.5-8.0) g/dL Albumin (3.5-5.0) g/dL Urine Color Urine Appearance Urine pH (5.0-9.0) Ur Specific [place] (1.005-1.025) Urine Protein (Neg-Trace) mg/dL Urine Glucose (UA) (Negative) mg/dL Urine Ketones (Negative) mg/dL Urine Blood (Negative) Urine Nitrite (Negative) Ur Leukocyte Esterase (Negative) CSF Tube Number 4 CSF Volume 1.0 ML CSF Appearance CLEAR CSF Color COLORLESS CSF WBC 1 MM*3 CSF RBC 0 MM*3 CSF Lymphocytes 67 % CSF Monocytes % 33 % CSF Appearance (b) Clear, Colorless CSF Glucose 141 mg/dL CSF Total Protein 67.4 H (15-45) mg/dL CSF C.neoform/gat PCR Not Detected (Not Detect.) CSF CMV DNA (PCR) Not Detected (Not Detect.) CSF Enterovirus (PCR) Not Detected (Not Detect.) CSF E. coli K1 (PCR) Not Detected (Not Detect.) CSF H. influenzae (PCR) Not Detected (Not Detect.) CSF HSV I (PCR) Not Detected (Not Detect.) CSF HSV II (PCR) Not Detected (Not Detect.) CSF HHV 6 (PCR) Not Detected (Not Detect.) CSF L.monocytogenes PCR Not Detected (Not Detect.) CSF N. meningitidis PCR Not Detected (Not Detect.) CSF Parechovirus (PCR) Not Detected (Not Detect.) CSF S. agalactiae (PCR) Not Detected (Not Detect.) CSF S. pneumoniae (PCR) Not Detected (Not Detect.) CSF VZV (PCR) Not Detected (Not Detect.) Salicylates (15-30) mg/dL Urine Opiates Screen (Not Detect) Ur Buprenorphine Scrn (Not Detect) ng/mL Ur Oxycodone Screen (Not Detect) ng/mL Urine Methadone Screen (Not Detect) ng/mL Urine Fentanyl Screen (Not Detect) Acetaminophen (<30) mcg/mL Ur Barbiturates Screen (Not Detect) Ur Phencyclidine Scrn (Not Detect) Ur Amphetamines Screen (Not Detect) U Benzodiazepines Scrn (Not Detect) Urine Cocaine Screen (Not Detect) U Marijuana (THC) Screen (Not Detect) Ethyl Alcohol mg/dL Critical Care Time Critical Care Time Critical Care Time: Yes Total Critical Care Time: 45 Attestation: I attest to this time spent taking care of the patient, obtaining history, physical, reviewing labs, imaging, treatment of patients condition +/- specialist/hospitalist consult +/- procedure Discharge Plan Discharge Clinical Impression: Inability to walk, Paresthesias, Leg edema, DEVON (acute kidney injury) Patient Disposition: Admitted As Inpatient Interventions: Admission Worksheet (ED) Last Done: 03/19/25 23:53 Discharge Date/Time: 03/20/25 00:59
[2025-03-19 08:08] VITALS: BP 112/55; PULSE 71; RESP 12; O2SAT 100
[2025-03-19 08:26] LABS: MANUAL DIFF FLAG NO
[2025-03-19 08:32] LABS: INTERNATIONAL NORM RATIO 1.0 (0.9-1.1); Prothrombin Time 12.6 SEC (11.2-13.5)
[2025-03-19 08:34] LABS: Hematocrit 31.3 % (42.0-52.0); Hemoglobin 10.3 g/dl (14.0-18.0); Imm Gran Abs Auto 0.02 X10*3/uL (0.00-0.03); Imm Gran Pct Auto 0.3 % (0.0-0.4); Lymphocytes Absolute Auto 1.5 X10*3/uL (1.2-4.9); Mean Corpuscular HGB Conc 32.9 g/dl (31.0-36.0); Mean Corpuscular Hemoglobin 29.5 pg (27.0-33.0); Mean Corpuscular Volume 89.7 fL (80.0-98.0); NRBC Abs Auto 0.000 X10*3/uL (0.0-0.012); NRBC Pct Auto 0.0 /100WBC (0.0-0.2); Platelet Count 236 X10*3/uL (160-400); Red Blood Count 3.49 X10*6/uL (4.60-5.80); White Blood Count 7.2 X10*3/uL (4.8-10.8)
[2025-03-19 08:40] LABS: Alanine Aminotransferase 16 U/L (0-40); Albumin Level 4.2 g/dL (3.5-5.0); Alkaline Phosphatase 91 U/L (39-117); Anion Gap 11 (12-20); Aspartate Amino Transferase 19 U/L (5-37); Blood Urea Nitrogen 49 mg/dL (9-16); Calcium 10.4 mg/dL (8.4-10.2); Carbon Dioxide 26 mmol/L (22-29); Chloride 108 mmol/L (96-108); Creatinine Clr Calc Pharmacy 37.4; Estimated Glomerular Filt Rate 43; Magnesium 2.1 mg/dL (1.6-2.6); Potassium 4.0 mmol/L (3.3-5.1); Sodium 141 mmol/L (135-145); Total Protein 7.4 g/dL (6.5-8.0)
[2025-03-19 08:42] LABS: Acetaminophen LAB < 3 mcg/mL (<30); Salicylate < 5.0 mg/dL (15-30)
--- OUTSIDE RECORDS SUMMARY | 2025-03-19 10:22 | XMS_ITS | Encounter Summary ---
Author Organization [facility] Address [address] [place] [address] Phone Care Team Providers Care Landing Scaler Name Role Phone Radha Barrios MD Unavailable [phone] Chela Hernandez MD Unavailable [phone] Nae Leiva MD Unavailable [phone] Radha Barrios MD Primary Care Provider [phone] Encounter Details Date Type Department Care Team (Late st Contact Info) Description 04/03/2017 Procedure Pass OR Admitting Dept - Virtual Department [address] [place] [address] Social History Tobacco Use Types Packs/Day Years [...] on filedocumented in this encounter Care Teams Landing Scaler Relationship Specialty Start Date End Date Radha Barrios MD [address] [place] [phone] PCP - General Internal Medicine 02/22/17 Radha Barrios MD [address] [place] [phone] Historical LMR Provider 02/16/17 2 Chela Hernandez MD 4 [facility] Orthopedics & Sports Medicine, [place] [address] [email or web address] Historical LMR Provider 02/16/17 Nae Leiva MD 4 [facility] Orthopedics Sports [facility], [facility] [place], [place] [id number] juan Historical LMR Provider 02/16/17 05/06/21 documented as of this encounter Additional Source Comments The information contained in this document represents components of the legal health record. It is not the complete legal health record.[facility]
--- OUTSIDE RECORDS SUMMARY | 2025-03-19 10:22 | XMS_ITS | Encounter Summary ---
Author Organization [facility] Address [address] [place] [address] Phone Care Team Providers Care Physics And Astronomy Professor Name Role Phone Radha Barrios MD Unavailable [phone] Chela Hernandez MD Unavailable [phone] Nae Leiva MD Unavailable [phone] Radha Barrios MD Primary Care Provider [phone] Encounter Details Date Type Department Care Team (Late st Contact Info) Description 03/12/2017 Prep for Surgery [facility] Orthopedics & Sports Medicine [address] [place] [address] [id number] Nae Leiva MD [address] [place] [address] Orthopedics & Sports Medicine, [facility] [place] [address] juan [email or web address] Social History Tobacco Use Types Packs/Day Years [...] on filedocumented in this encounter Care Teams Physics And Astronomy Professor Relationship Specialty Start Date End Date Radha Barrios MD [address] [place] [phone] PCP - General Internal Medicine 02/22/17 Radha Barrios MD [address] [place] [phone] Historical LMR Provider 02/16/17 2 Chela Hernandez MD [address] [place] [address] Orthopedics & Sports Medicine, [facility] [place] [address] Historical LMR Provider 02/16/17 Nae Leiva MD 4 [facility] Orthopedics Sports [facility], [facility] [place], [place] [phone] juan Historical LMR Provider 02/16/17 05/06/21 documented as of this encounter Additional Source Comments The information contained in this document represents components of the legal health record. It is not the complete legal health record.[facility]
--- OUTSIDE RECORDS SUMMARY | 2025-03-19 10:22 | XMS_ITS | Encounter Summary ---
Author Organization [facility] Address [address] [place] [address] Phone Care Team Providers Care Plastics Design Engineer Name Role Phone Radha Barrios MD Unavailable [phone] Chela Heranndez MD Unavailable [phone] Nae Leiva MD Unavailable [phone] Radha Barrios MD Primary Care Provider [phone] Encounter Details Date Type Department Care Team (Late st Contact Info) Description 01/25/2021 Procedure Pass [facility], [address] [place] [address] Social History Tobacco Use Types Packs/Day Years [...] on filedocumented in this encounter Care Teams Plastics Design Engineer Relationship Specialty Start Date End Date Radha Barrios MD [address] [place] [phone] PCP - General Internal Medicine 02/22/17 Radha Barrios MD [address] [place] [phone] Historical LMR Provider 02/16/17 2 Chela Hernandez MD 4 [facility] Orthopedics & Sports Medicine, [facility]. [place], [place] [id number] [email or web address] Historical LMR Provider 02/16/17 Nae Leiva MD 4 [facility] Orthopedics Sports [facility], [facility]. [place], [place] [phone] juan Historical LMR Provider 02/16/17 05/06/21 documented as of this encounter Additional Source Comments The information contained in this document represents components of the legal health record. It is not the complete legal health record.[facility]
--- OUTSIDE RECORDS SUMMARY | 2025-03-19 10:22 | XMS_ITS | Patient Health Record ---
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) Active confirmed Problem Abnormal feces (263585574) Positive colorectal cancer screening using Cologuard test (R19.5) Active confirmed Plan Of Treatment Future Test Test Name Order Date COLONOSCOPY 01/22/2019 Insurance Providers Payer Name Payer Address Payer Phone Subscriber Number Group Number Insured Name Patient Relationship to Insured Coverage Start Date Coverage End Date MEDICARE OF [place] [address] [place] [address] [id number] JONATAN SAWYER Self - patient is the insured [facility] [address] [place] [address] [id number] JONATAN SAWYER Self - patient is the insured Medical (General) History Medical History History ICD Code IDDM HTN Denies MD,CVA,Lung disease,renal disease IBS GERD---EGD 01/2008-small HH; normal duodenal biopsies, neg. for celiac disease Colonoscopy 01/2008-neg for colitis/poly ps PMR + Cologuard test 2018 Surgical History Surgery Date(Month/Year) Carpal tunnel release bilaterally
--- OUTSIDE RECORDS SUMMARY | 2025-03-19 10:22 | XMS_ITS | Encounter Summary ---
Author Organization [facility] Address [address] [place] [address] Phone Care Team Providers Care C D Reactor Operator Name Role Phone Radha Barrios MD Unavailable [phone] Chela Hernandez MD Unavailable [phone] Nae Leiva MD Unavailable [phone] Radha Barrios MD Primary Care Provider [phone] Encounter Details Date Type Department Care Team (Late st Contact Info) Description 05/29/2017 Procedure Pass OR Admitting Dept - Virtual Department [address] [place] [address] Social History Tobacco Use Types Packs/Day Years [...] on filedocumented in this encounter Care Teams C D Reactor Operator Relationship Specialty Start Date End Date Radha Barrios MD [address] [place] [phone] PCP - General Internal Medicine 02/22/17 Radha Barrios MD [address] [place] [phone] Historical LMR Provider 02/16/17 2 Chela Hernandez MD 4 [facility] Orthopedics & Sports Medicine, [facility] [place] [address] [email or web address] Historical LMR Provider 02/16/17 Nae Leiva MD 4 [facility] Orthopedics Sports [facility], [facility]. [place], [place] [phone] juan Historical LMR Provider 02/16/17 05/06/21 documented as of this encounter Additional Source Comments The information contained in this document represents components of the legal health record. It is not the complete legal health record.[facility]
--- OUTSIDE RECORDS SUMMARY | 2025-03-19 10:22 | XMS_ITS | Encounter Summary ---
Author Organization [facility] Address [address] [place] [address] Phone Care Team Providers Care Cloud Architect Name Role Phone Radha Barrios MD Unavailable [phone] Chela Hernandez MD Unavailable [phone] Nae Leiva MD Unavailable [phone] Radha Barrios MD Primary Care Provider [phone] Encounter Details Date Type Department Care Team (Late st Contact Info) Description 05/28/2017 Prep for Surgery [facility] Orthopedics & Sports Medicine [address] [place] [id number] Nae Leiva MD [address] [place] [address] Orthopedics & Sports Medicine, [facility] [place] [address] [email or web address] Social History Tobacco Use Types Packs/Day Years [...] on filedocumented in this encounter Care Teams Cloud Architect Relationship Specialty Start Date End Date Radha Barrios MD [address] [place] [phone] PCP - General Internal Medicine 02/22/17 Radha Barrios MD [address] [place] [phone] Historical LMR Provider 02/16/17 2 Chela Hernandez MD [address] [facility] [place] [facility] Orthopedics & Sports Medicine, [facility] [place], [place] [phone] Historical LMR Provider 02/16/17 Nae Leiva MD [address] [facility] [place] [facility] Orthopedics Sports [facility], [place], [place] [phone] juan Historical LMR Provider 02/16/17 05/06/21 documented as of this encounter Additional Source Comments The information contained in this document represents components of the legal health record. It is not the complete legal health record.[facility]
--- OUTSIDE RECORDS SUMMARY | 2025-03-19 10:22 | XMS_ITS | Encounter Summary ---
Author Organization [facility] Address [address] [facility] [address] [place] [phone] Phone Care Team Providers Care Ethylene Oxide Panelboard Operator Name Role Phone Radha Barrios MD Unavailable [phone] Chela Hernandez MD Unavailable [phone] Nae Leiva MD Unavailable [phone] Radha Barrios MD Primary Care Provider [phone] Reason for Referral * MRI/CAT Scan - Closed Specialty Diagnoses / Procedures Referred By Contac t Referred To Contact Radiology Diagnoses Left hip pain Procedures MRI Hip (Left) Sirena Armas MD Phone: tel: fax: Referral ID Status Reason Start Date Expiration Date Visits Re quested Visits Authorized [id number] Closed 01/25/2021 01/25/2022 1 1 Encounter Details Date Type Department Care Team (Latest Contact Info) Description 01/25/2021 Transcribe Orders Virtual Department [address] [place] [address] Sirena Armas MD [address] [place] [phone] Left hip pain (Primary Dx) Social History [...] thigh documented in this encounter Care Teams Ethylene Oxide Panelboard Operator Relationship Specialty Start Date End Date Radha Barrios MD [address] [place] [phone] PCP - General Internal Medicine 02/22/17 Radha Barrios MD [address] [place] [phone] Historical LMR Provider 02/16/17 2 Chela Hernandez MD [address] [place] [address] Orthopedics & Sports Medicine, [place] [address] Historical LMR Provider 02/16/17 Nae Leiva MD 4 [facility] Orthopedics & Sports Medicine, [place] [address] juan Historical LMR Provider 02/16/17 05/06/21 documented as of this encounter Additional Source Comments The information contained in this document represents components of the legal health record. It is not the complete legal health record.[facility]
--- OUTSIDE RECORDS SUMMARY | 2025-03-19 10:22 | XMS_ITS | Clinical Summary ---
Author Organization [facility] Address [address] [phone] Phone Care Team Providers Care Coining Press Operator Name Role Phone Radha Barrios MD Primary Care Provider [phone] Allergies Active Allergy Reactions Criticality Noted Date Comments Dilqtwf-Lww-Bdw Reductase Inhibitors Diarrhea 02/25/2017 Pt not sure [...] file Insurance MEDICARE PART A & B [facility] SUPP[place] MEDICARE PART A & B [facility] MEDIC[facility] SU[facility] MEDICARE SUPPLEMENT [facility] MEDICARE PART A & B [facility] EXTENSION MEDICARE SUPPLEMENT [facility] MEDICARE PART A & B [employer] EXTENSION MEDICARE [place] [id number] MEDICARE PART A & B [facility] EXTENSION MEDICARE SUPPLEMENT [facility] MEDICARE PART A & B [facility] EXTENSION MEDICARE SUPPLEMENT [place] MEDICARE PART A & B [facility] MEDICARE SUPP[facility] & B [facility] EX[facility] [place] [phone] [facility] Advance Directives For more information, please contact: [phone] (9AM - 5PM [facility], Saturday-Saturday) * Full Code (Presumed) (Latest Code Status on File) Date Activated Date Inactivated Comments 05/29/2017 7:32 AM 05/29/2017 12:15 PM * Full Code (Presumed) Date Activated Date Inactivated Comments 04/03/2017 6:51 AM 04/03/2017 11:58 AM Care Teams Coining Press Operator Relationship Specialty Start Date End Date Radha Barrios MD [address] [place] [phone] PCP - General Internal Medicine 02/22/17 Additional Source Comments The information contained in this document represents components of the legal health record. It is not the complete legal health record.[facility]
[2025-03-19 11:47] LABS: Appearance Urine Clear; Glucose Urine UA 500 mg/dL (Negative); PH 5.5 (5.0-9.0); Specific Gravity - Urine 1.020 (1.005-1.025)
[2025-03-19 12:08] LABS: Cannabinoid Screen Urine Not Detected (Not Detect)
[2025-03-19] MEDS: Lidocaine HCl 1 % MPF 5 ML VIAL INFILTRATI (12:19)
[2025-03-19 13:15] LABS: Lymphocytes CSF 67 %
[2025-03-19 13:16] LABS: Red Blood Cell CSF 0 MM*3; White Blood Cell CSF 1 MM*3
--- NOTE | 2025-03-19 13:31 | MHC.EDTECH ---
OUTGOING CALL [phone], TO NEUROLOGY, KELI GHOTRA CALLED NO ANSWER ONLY VM 2X CALLING.
[2025-03-19 14:01] LABS: NT Pro B Type Natriuretic Pept 222.6 pg/mL (<300)
--- NOTE | 2025-03-19 14:03 | MHC.EDTECH ---
OUTGOING CALL SPOKE TO NEUROLOGY DR. ESCALERA FISH CLEANER MACHINE TENDER WAS TOLD SHE TXT DR. BARTLETT FOR A CONSULT FOR KELI GHOTRA, UNABLE TO REACH WAS TOLD TO TIGER TXT HIM. PER PA SHE TIGERED DR. BARTLETT.
--- NOTE | 2025-03-19 15:24 | PM.IMHP ---
History of Present Illness Date of Service: 03/19/25 Attending physician on admission: Leobardo Bonilla Chief Complaint: weakness This is an 79-year-old male with history of diabetes, back pain presents to the emergency department with lower extremity weakness. Patient has been having lower extremity weakness since over the summer. He has been seen in the spine clinic for left leg weakness, falls and radicular pain in the left buttock. He was taking tramadol and Advil for the pain. MRI showed stenosis primarily at L4/5 where there is moderate to severe stenosis. He was sent for EMG studies to evaluate for polyneuropathy and tentative plans for possible decompression of the stenotic segments. On Saturday he received a flu shot. Since that time he reports increasing lower extremity weakness. He has had trouble getting up out of the chair. He uses a walker at baseline but required multiple people to assist him up in the emergency department. In the emergency department he underwent LP which revealed an elevated protein. The case was discussed with Neurology who recommended more spine which is pending at this time. Review of Systems Review of Systems: Yes all other systems are reviewed and are negative Constitutional: Constitutional: Denies chills and Denies fever(s) Cardiovascular: Cardiovascular: Denies chest pain and Denies palpitations Gastrointestinal: Gastrointestinal: Denies abdominal pain, Denies nausea and Denies vomiting Endocrine: Endocrine: Denies palpitations [facility] Medical History Left leg weakness Osteopenia Erectile dysfunction Type 2 diabetes mellitus with hyperglycemia Polymyalgia rheumatica Thrombocytopenia Hypercholesterolemia GERD (gastroesophageal reflux disease) Carpal tunnel syndrome Diabetic neuropathy Hypertension Family History Father Hypertension CVD (cardiovascular disease) Mother Cancer Surgical History History of carpal tunnel release Social History Housing: House Alcohol intake: current Alcohol intake frequency: 0-2 drinks per day Alcohol type: hard liquor Patient Tobacco Use Status: Former Tobacco user Tobacco use type: Cigarette Years Smoked: quit 2005 e-Cigarette/Vaping Use: Never Used Second Hand Smoke Exposure: Yes Advance Directives: No Advance Directives Information Provided: Yes Do you have a plan to hurt others: No Plan service: No Current occupational status: retired Cognitive needs: No Hearing needs: No Vision needs: Yes (Glasses) Meds Allergies Allergy/AdvReac Type Severity Reaction Status Date / Time meloxicam Allergy Unknown Unknown Verified 03/19/25 08:02 simvastatin Allergy Unknown Unknown Verified 03/19/25 08:02 Active Medications: Current Medications Acetaminophen (Acetaminophen 325 Mg Tablet) 650 mg PO Q6H PRN PRN Reason: Pain, Mild 1-3,fever,headache Calcium Carbonate (Calcium Carbonate 750 Mg Tab.Chew) 750 mg PO Q4H PRN PRN Reason: Heartburn Dextrose (Dextrose 50 % 25 Gm/50 Ml Syringe) 25 gm IVPUSH Q15M PRN; Protocol PRN Reason: per Hypoglycemia Standing Ord. Glucose (Glucose Gel 15 Gm Gel..Gram.) 15 gm PO Q15M PRN; Protocol PRN Reason: per Hypoglycemia Standing Ord. Insulin Human Lispro (Insulin Lispro 100 Unit/Ml 3 Ml Vial) 0 unit SUBCUT [facility]; Protocol Magnesium Hydroxide (Milk Of Magnesia 30 Ml Oral.Susp) 30 ml PO DAILY PRN PRN Reason: Constipation Melatonin (Melatonin 3 Mg Tablet) 6 mg PO BEDTIME PRN PRN Reason: Insomnia Sodium Chloride (0.9 % Sodium Chloride Flush 3 Ml Syringe) 3 ml IVFLUSH [facility] Home Medications ?Medication ?Instructions ?Recorded ?Confirmed ?Last Taken ?Type cholecalciferol (vitamin D3) 25 25 mcg PO DAILY 03/16/20 03/16/25 Unknown History mcg (1,000 unit) capsule lisinopril 40 mg tablet 40 mg PO DAILY 03/16/20 03/16/25 Unknown History insulin degludec 100 unit/mL (3 15 unit subcut DAILY 07/10/21 03/16/25 Unknown History mL) subcutaneous pen (Tresiba FlexTouch U-100 insulin) hydrochlorothiazide 12.5 mg tablet 12.5 mg PO DAILY 10/17/21 03/16/25 Unknown History insulin lispro 100 unit/mL 1 sliding scale dose subcut 08/27/23 03/16/25 Unknown History subcutaneous pen (Admelog SoloStar USEASDIRECTD U-100 Insulin lispro) alcohol swabs (BD Alcohol Swabs) pad topical diabetes mellitus 10/15/24 03/16/25 Unknown History blood-glucose sensor (Dexcom G6 #1 ea 10/15/24 03/16/25 Unknown History Sensor device) blood-glucose transmitter (Dexcom #1 ea 10/15/24 03/16/25 Unknown History G6 Transmitter device) pen needle, diabetic 32 gauge x #1,200 ea 10/15/24 03/16/25 Unknown History Physical Exam Vital Signs and Narrative: Vital Signs: Last Vital Signs Temp 97.4 F 03/19/25 08:00 Pulse 71 03/19/25 08:08 Resp 12 03/19/25 08:08 BP 112/55 L 03/19/25 08:08 Pulse Ox 100 03/19/25 08:08 O2 Del Method Room Air 03/19/25 08:08 BMI result Body Mass Index 21.1 Const: Other: frail, elderly male resting in bed General: cooperative, no acute distress, alert and awake Orientation/consciousness: patient oriented x3 Eyes: Other: left side ptosis Resp: Effort & Inspection: normal respiratory effort, able to speak in complete sentences, no respiratory distress and no use of accessory muscles Cardio: Rate: regular rate GI: Inspection: No distended Palpation (GI): Soft to palpation and nontender Neuro: Other: b/l lower extremity weakness, unable to hold legs up against gravity, legs tender with minimal palpation General: patient oriented x3 Results Labs 03/19/25 08:18 03/19/25 08:18 Labs: Laboratory Results - last 24 hr 03/19/25 03/19/25 03/19/25 08:18 11:34 12:17 MCV 89.7 MCH 29.5 MCHC 32.9 RDW 12.7 Plt Count 236 D MPV 9.9 Immature Gran % (Auto) 0.3 Neut % (Auto) 67.2 Lymph % (Auto) 21.5 Callaway % (Auto) 9.4 Eos % (Auto) 1.0 Baso % (Auto) 0.6 Lymph # (Auto) 1.5 [place] # (Auto) 0.7 Eos # (Auto) 0.1 Baso # (Auto) 0.0 Abs Immat Gran (auto) 0.02 Absolute Neuts (auto) 4.8 Absolute Nucleated RBC 0.000 Nucleated RBC % (auto) 0.0 PT 12.6 INR 1.0 Anion Gap 11 L Estim Creat Clear Calc 37.4 Estimated GFR 43 Random Glucose 257 H Lactic Acid 0.9 Calcium 10.4 H Magnesium 2.1 Total Bilirubin 0.4 AST 19 ALT 16 Alkaline Phosphatase 91 Total Creatine Kinase 119 NT-Pro-B Natriuret Pep 222.6 Total Protein 7.4 Albumin 4.2 Urine Color Yellow Urine Appearance Clear Urine pH 5.5 Ur Specific Nicolaus 1.020 Urine Protein Negative Urine Glucose (UA) 500 H Urine Ketones Negative Urine Blood Negative Urine Nitrite Negative Ur Leukocyte Esterase Negative CSF Tube Number 2 CSF Volume CSF Appearance CSF Color CSF WBC CSF RBC CSF Lymphocytes CSF Monocytes % CSF Appearance (b) CSF Glucose CSF Total Protein CSF C.neoform/gat PCR CSF CMV DNA (PCR) CSF Enterovirus (PCR) CSF E. coli K1 (PCR) CSF H. influenzae (PCR) CSF HSV I (PCR) CSF HSV II (PCR) CSF HHV 6 (PCR) CSF L.monocytogenes PCR CSF N. meningitidis PCR CSF Parechovirus (PCR) CSF S. agalactiae (PCR) CSF S. pneumoniae (PCR) CSF VZV (PCR) Salicylates < 5.0 L Urine Opiates Screen POSITIVE H Ur Buprenorphine Scrn Not Detected Ur Oxycodone Screen Not Detected Urine Methadone Screen Not Detected Urine Fentanyl Screen Not Detected Acetaminophen < 3 Ur Barbiturates Screen Not Detected Ur Phencyclidine Scrn Not Detected Ur Amphetamines Screen Not Detected U Benzodiazepines Scrn Not Detected Urine Cocaine Screen Not Detected U Marijuana (THC) Screen Not Detected Ethyl Alcohol 15 03/19/25 12:17 MCV MCH MCHC RDW Plt Count MPV Immature Gran % (Auto) Neut % (Auto) Lymph % (Auto) Callaway % (Auto) Eos % (Auto) Baso % (Auto) Lymph # (Auto) [place] # (Auto) Eos # (Auto) Baso # (Auto) Abs Immat Gran (auto) Absolute Neuts (auto) Absolute Nucleated RBC Nucleated RBC % (auto) PT INR Anion Gap Estim Creat Clear Calc Estimated GFR Random Glucose Lactic Acid Calcium Magnesium Total Bilirubin AST ALT Alkaline Phosphatase Total Creatine Kinase NT-Pro-B Natriuret Pep Total Protein Albumin Urine Color Urine Appearance Urine pH Ur Specific Nicolaus Urine Protein Urine Glucose (UA) Urine Ketones Urine Blood Urine Nitrite Ur Leukocyte Esterase CSF Tube Number 4 CSF Volume 1.0 CSF Appearance CLEAR CSF Color COLORLESS CSF WBC 1 CSF RBC 0 CSF Lymphocytes 67 CSF Monocytes % 33 CSF Appearance (b) Clear, Colorless CSF Glucose 141 CSF Total Protein 67.4 H CSF C.neoform/gat PCR Not Detected CSF CMV DNA (PCR) Not Detected CSF Enterovirus (PCR) Not Detected CSF E. coli K1 (PCR) Not Detected CSF H. influenzae (PCR) Not Detected CSF HSV I (PCR) Not Detected CSF HSV II (PCR) Not Detected CSF HHV 6 (PCR) Not Detected CSF L.monocytogenes PCR Not Detected CSF N. meningitidis PCR Not Detected CSF Parechovirus (PCR) Not Detected CSF S. agalactiae (PCR) Not Detected CSF S. pneumoniae (PCR) Not Detected CSF VZV (PCR) Not Detected Salicylates Urine Opiates Screen Ur Buprenorphine Scrn Ur Oxycodone Screen Urine Methadone Screen Urine Fentanyl Screen Acetaminophen Ur Barbiturates Screen Ur Phencyclidine Scrn Ur Amphetamines Screen U Benzodiazepines Scrn Urine Cocaine Screen U Marijuana (THC) Screen Ethyl Alcohol Imaging Radiologist's Impressions: Impressions Venous Duplex 03/19/25 08:24 IMPRESSION: No evidence of deep venous thrombosis involving the bilateral lower extremities. Soft tissue edema in bilateral distal calf. Electronically signed by: Yuri Dotson MD 03/19/2025 09:26 AM EST RP Chest X-Ray 03/19/25 09:35 IMPRESSION: No active pulmonary disease. Electronically signed by: Jared Mccullough MD 03/19/2025 09:51 AM EST RP Abdomen/Pelvis CT 03/19/25 10:05 IMPRESSION: No acute abnormality. 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 Moderate degenerative changes are evident in the thoracolumbar spine. Fleischner guidelines were followed. Electronically signed by: Neymar Rosenberg MD 03/19/2025 11:10 AM EST RP Cervical Spine CT 03/19/25 10:05 IMPRESSION: No evidence of fracture or malalignment of the cervical spine. Degenerative changes as described. Electronically signed by: Sunday Preciado MD 03/19/2025 10:58 AM EST RP Chest CT 03/19/25 10:05 IMPRESSION: 1. The lungs are clear. There is no active pulmonary disease. 2. There are no acute fractures identified. There are degenerative changes throughout the spine. 3. There are ancillary findings as discussed in the body of the report. Electronically signed by: Jared Mccullough MD 03/19/2025 11:04 AM EST RP Head CT 03/19/25 10:05 IMPRESSION: No evidence of intracranial hemorrhage. Electronically signed by: Sunday Preciado MD 03/19/2025 11:00 AM EST RP Assessment and Plan (1) DEVON (acute kidney injury): Status: Acute (2) Leg weakness, bilateral: Status: Acute Plan This is an 79-year-old male with a history of type 2 diabetes, spinal stenosis with chronic left lower extremity pain and weakness, who presents to the ED with progressive b/l lower extremity weakness over the past three days leading to the inability to walk independently Lower extremity weakness h/o spinal stenosis with LLE pain, but now with progressive LE weakness MRI lumbar spine pending to rule out mechanical causes elevated protein on LP, possible neuromuscular d/o such as Guillain-Newcomb also with ptosis on exam, although fluctuating - check acetylcholine receptor labs remote h/o polymyalgia rheumatica although less likely due to presentation, check ESR, CRP cpk normal less likely myositis neurology consult PT evaluation DEVON gentle IVF trend BMP avoid nephrotoxins T2DM SSI, POCs, ADA diet med rec pending at the time of admission DVT prophylaxis-avoid chemoprophylaxis for 24 hours following LP Patient will likely require 2 midnight stay in the hospital for management of progressive lower extremity weakness concerning for neuromuscular disorder requiring advanced imaging and specialist evaluation as well as possible IVIG or high dose steroids Quality Stroke Does the patient have a stroke diagnosis?: No VTE Prior VTE?: No VTE Risk Level:: Medical - moderate - high VTE Device Contraindication: Treatment Not Indicated VTE Drug Contraindication: N/A - Med Ordered
--- NOTE | 2025-03-19 16:22 | PC.NURSE ---
MRI screening form completed with Pt. Form faxed to MRI and placed in Pts hard chart.
[2025-03-19] MEDS: Lactated Ringers 1,000 ML 80 ML IVCONT (16:33)
[2025-03-19 17:34] LABS: Glucose, Whole Blood 182 mg/dL (60-115)
[2025-03-19 18:08] LABS: Erythrocyte Sedimentation Rate 87 MM/HR (0-15)
--- NOTE | 2025-03-19 18:16 | PC.NURSE ---
Pt with blood glucose sensor and glucose monitor device. Sensor removed at this time d/t MRI. Family takes sensor and monitoring device (cell phone like device) home at this time. Pt off unit to MRI at this time.
--- NOTE | 2025-03-19 18:21 | PC.NURSE ---
Late entry: At approx. 1600, this RN entered Pts room to find him sitting in the bedside chair with only his shirt on. Bedside rails noted to be up, Pt had removed his cardiac leads and O2 sat monitoring sensor. Pt reports he thought he needed to get up so he did. He was unable to explain how he got himself up and into the chair but reports it was very hard to do so. This RN and pharmacy scheduler Jazz assist Pt back into hospital clothing and back into bed safely. Pt advised that he is to request staff to assist with any needs he may have. Fall precautions remain in place. Chair alarm placed on Pt, curtain to remain open for increased monitoring. Call carias within reach.
--- NOTE | 2025-03-19 19:14 | PHA.MEDREC ---
Pharmacy Consult ? Medication Reconciliation Pharmacy has completed the medication reconciliation. Patient was deep asleep, called and spoke to patient's Pratibha who didn't know patient's medications and told us that patient has seen Dr. Barrios recently and that med list is up to dated. Used med list from Dr. Barrios's visit on 03/16/25 to complet med rec. Last dose of medications was last night 03/18/25.
[2025-03-19 19:49] VITALS: BP 110/55; PULSE 91; RESP 14; O2SAT 95
[2025-03-19 21:40] LABS: Glucose, Whole Blood 314 mg/dL (60-115)
[2025-03-19 21:40] LABS: Glucose, Whole Blood 354 mg/dL (60-115)
[2025-03-19 23:39] VITALS: BP 108/58; PULSE 78; RESP 18; O2SAT 99
[2025-03-20 00:56] VITALS: BMI 20.5
[2025-03-20 01:48] VITALS: BP 149/78; PULSE 86; RESP 16; TEMP 36.4; O2SAT 94
[2025-03-20 04:00] VITALS: BP 111/57; PULSE 73; RESP 16; TEMP 36.2; O2SAT 97
[2025-03-20 07:28] VITALS: BP 127/60; PULSE 74; RESP 18; TEMP 36.6; O2SAT 100
[2025-03-20 07:48] LABS: Hematocrit 27.3 % (42.0-52.0); Hemoglobin 9.1 g/dl (14.0-18.0); Mean Corpuscular HGB Conc 33.3 g/dl (31.0-36.0); Mean Corpuscular Hemoglobin 29.7 pg (27.0-33.0); Mean Corpuscular Volume 89.2 fL (80.0-98.0); NRBC Abs Auto 0.000 X10*3/uL (0.0-0.012); NRBC Pct Auto 0.0 /100WBC (0.0-0.2); Platelet Count 206 X10*3/uL (160-400); Red Blood Count 3.06 X10*6/uL (4.60-5.80); White Blood Count 5.9 X10*3/uL (4.8-10.8)
[2025-03-20 07:52] LABS: Glucose, Whole Blood 267 mg/dL (60-115)
[2025-03-20 08:02] LABS: Anion Gap 13 (12-20); Blood Urea Nitrogen 36 mg/dL (9-16); Calcium 9.9 mg/dL (8.4-10.2); Carbon Dioxide 24 mmol/L (22-29); Chloride 109 mmol/L (96-108); Creatinine Clr Calc Pharmacy 51.8; Estimated Glomerular Filt Rate > 60; Potassium 4.1 mmol/L (3.3-5.1); Sodium 142 mmol/L (135-145)
[2025-03-20] MEDS: 0.9 % Sodium Chloride Flush 3 ML SYRINGE IVFLUSH ×3 (08:17→20:26)
--- NOTE | 2025-03-20 08:46 | MHC.CM.PN ---
Addendum entered by Coby Aldrich 03/21/25 14:38: CM SPOKE TO PTS WHO REPORTS THERE IS A HCP, HOWEVER IT IS AT A [employer], SHE DOES NOT HAVE A COPY. THE DIRECTOR OF GIFT PLANNING IS DENZEL LINDQUIST [phone] IN [place] SHE KNOWS THAT PT IS CURRENTLY REFUSING STR, BUT ASKS THAT A REFERRAL BE SENT TO [facility] JUST IN CASE HE AGREES SHE SAYS IF HE COMES HOME, HIS SON WILL TRANSPORT, SHE SHOULD BE CALLED TO MAKE THOSE ARRANGEMENTS, PT NEEDS CLOTHES WELL Addendum entered by Coby Aldrich 03/21/25 14:23: PT REPORTS HE LIVES WITH HIS HE CONFIRMS HE IS ACTIVE WITH [facility] FOR SN AND PT HE USES A [facility] HE SAYS HE HAS A HCP NAMING HIS AND SON, COPY REQUESTED PCP: PRAKASH CARDENAS IMM DELIVERED 03/20/25 PT STATES HE IS NOT GOING TO A REHAB FACILITY DCP: HOME, [facility] TO TRANSPORT Original Note: VM RECEIVED FROM [facility] INDICATING PT IS ACTIVE RETURN REFERRAL PLACED
--- NOTE | 2025-03-20 09:50 | P.PNIM_ITS ---
Subjective Subjective Date of Service: 03/20/25 Interval History: unresolved weakness Physical Exam 2 Exam: Exam: General: AO X 3, no acute distress, frail appearing Resp: CTA bilateral, no accessory muscles used CVS: S1,S2,RRR GI: soft, non tender, non distended Neuro: motor grossly weak, alert Psych: appropriate affect, appropriate insight Vital Signs: Vital Signs: Last Vital Signs Temp 97.9 F 03/20/25 07:28 Pulse 74 03/20/25 07:28 Resp 18 03/20/25 07:28 BP 127/60 03/20/25 07:28 Pulse Ox 100 03/20/25 07:28 O2 Del Method Room Air 03/20/25 07:28 BMI result Body Mass Index 20.5 Objective Data Active Medications Acetaminophen (Acetaminophen 325 Mg Tablet) 650 mg PO Q6H PRN PRN Reason: Pain, Mild 1-3,fever,headache Last Admin: 03/19/25 17:47 Dose: 650 mg Documented By: ARIANE Calcium Carbonate (Calcium Carbonate 750 Mg Tab.Chew) 750 mg PO Q4H PRN PRN Reason: Heartburn Dextrose (Dextrose 50 % 25 Gm/50 Ml Syringe) 25 gm IVPUSH Q15M PRN; Protocol PRN Reason: per Hypoglycemia Standing Ord. Glucose (Glucose Gel 15 Gm Gel..Gram.) 15 gm PO Q15M PRN; Protocol PRN Reason: per Hypoglycemia Standing Ord. Insulin Human Lispro (Insulin Lispro 100 Unit/Ml 3 Ml Vial) [facility]; Protocol Last Admin: 03/20/25 08:16 Dose: 6 unit Documented By: ARMAND Magnesium Hydroxide (Milk Of Magnesia 30 Ml Oral.Susp) 30 ml PO DAILY PRN PRN Reason: Constipation Melatonin (Melatonin 3 Mg Tablet) 6 mg PO BEDTIME PRN PRN Reason: Insomnia Sodium Chloride (0.9 % Sodium Chloride Flush 3 Ml Syringe) 3 ml IVFLUSH [facility] Last Admin: 03/20/25 08:17 Dose: 3 ml Documented By: ARMAND Labs 03/20/25 06:47 03/20/25 06:47 Labs: Laboratory Results - last 24 hr 03/19/25 03/19/25 03/19/25 08:18 11:34 12:17 MCV MCH MCHC RDW Plt Count MPV Absolute Nucleated RBC Nucleated RBC % (auto) ESR 87 H Anion Gap Estim Creat Clear Calc Estimated GFR POC Glucose Random Glucose Calcium C-Reactive Protein 4.60 H NT-Pro-B Natriuret Pep 222.6 Urine Color Yellow Urine Appearance Clear Urine pH 5.5 Ur Specific [place] 1.020 Urine Protein Negative Urine Glucose (UA) 500 H Urine Ketones Negative Urine Blood Negative Urine Nitrite Negative Ur Leukocyte Esterase Negative CSF Tube Number 2 CSF Volume CSF Appearance CSF Color CSF WBC CSF RBC CSF Lymphocytes CSF Monocytes % CSF Appearance (b) CSF Glucose CSF Total Protein CSF C.neoform/gat PCR CSF CMV DNA (PCR) CSF Enterovirus (PCR) CSF E. coli K1 (PCR) CSF H. influenzae (PCR) CSF HSV I (PCR) CSF HSV II (PCR) CSF HHV 6 (PCR) CSF L.monocytogenes PCR CSF N. meningitidis PCR CSF Parechovirus (PCR) CSF S. agalactiae (PCR) CSF S. pneumoniae (PCR) CSF VZV (PCR) Urine Opiates Screen POSITIVE H Ur Buprenorphine Scrn Not Detected Ur Oxycodone Screen Not Detected Urine Methadone Screen Not Detected Urine Fentanyl Screen Not Detected Ur Barbiturates Screen Not Detected Ur Phencyclidine Scrn Not Detected Ur Amphetamines Screen Not Detected U Benzodiazepines Scrn Not Detected Urine Cocaine Screen Not Detected U Marijuana (THC) Screen Not Detected 03/19/25 03/19/25 03/19/25 12:17 17:29 21:31 MCV MCH MCHC RDW Plt Count MPV Absolute Nucleated RBC Nucleated RBC % (auto) ESR Anion Gap Estim Creat Clear Calc Estimated GFR POC Glucose 182 H 354 H* Random Glucose Calcium C-Reactive Protein NT-Pro-B Natriuret Pep Urine Color Urine Appearance Urine pH Ur Specific [place] Urine Protein Urine Glucose (UA) Urine Ketones Urine Blood Urine Nitrite Ur Leukocyte Esterase CSF Tube Number 4 CSF Volume 1.0 CSF Appearance CLEAR CSF Color COLORLESS CSF WBC 1 CSF RBC 0 CSF Lymphocytes 67 CSF Monocytes % 33 CSF Appearance (b) Clear, Colorless CSF Glucose 141 CSF Total Protein 67.4 H CSF C.neoform/gat PCR Not Detected CSF CMV DNA (PCR) Not Detected CSF Enterovirus (PCR) Not Detected CSF E. coli K1 (PCR) Not Detected CSF H. influenzae (PCR) Not Detected CSF HSV I (PCR) Not Detected CSF HSV II (PCR) Not Detected CSF HHV 6 (PCR) Not Detected CSF L.monocytogenes PCR Not Detected CSF N. meningitidis PCR Not Detected CSF Parechovirus (PCR) Not Detected CSF S. agalactiae (PCR) Not Detected CSF S. pneumoniae (PCR) Not Detected CSF VZV (PCR) Not Detected Urine Opiates Screen Ur Buprenorphine Scrn Ur Oxycodone Screen Urine Methadone Screen Urine Fentanyl Screen Ur Barbiturates Screen Ur Phencyclidine Scrn Ur Amphetamines Screen U Benzodiazepines Scrn Urine Cocaine Screen U Marijuana (THC) Screen 03/19/25 03/20/25 03/20/25 21:35 06:47 07:49 MCV 89.2 MCH 29.7 MCHC 33.3 RDW 12.9 Plt Count 206 MPV 10.4 Absolute Nucleated RBC 0.000 Nucleated RBC % (auto) 0.0 ESR Anion Gap 13 Estim Creat Clear Calc 51.8 Estimated GFR > 60 POC Glucose 314 H 267 H Random Glucose 286 H Calcium 9.9 C-Reactive Protein NT-Pro-B Natriuret Pep Urine Color Urine Appearance Urine pH Ur Specific [place] Urine Protein Urine Glucose (UA) Urine Ketones Urine Blood Urine Nitrite Ur Leukocyte Esterase CSF Tube Number CSF Volume CSF Appearance CSF Color CSF WBC CSF RBC CSF Lymphocytes CSF Monocytes % CSF Appearance (b) CSF Glucose CSF Total Protein CSF C.neoform/gat PCR CSF CMV DNA (PCR) CSF Enterovirus (PCR) CSF E. coli K1 (PCR) CSF H. influenzae (PCR) CSF HSV I (PCR) CSF HSV II (PCR) CSF HHV 6 (PCR) CSF L.monocytogenes PCR CSF N. meningitidis PCR CSF Parechovirus (PCR) CSF S. agalactiae (PCR) CSF S. pneumoniae (PCR) CSF VZV (PCR) Urine Opiates Screen Ur Buprenorphine Scrn Ur Oxycodone Screen Urine Methadone Screen Urine Fentanyl Screen Ur Barbiturates Screen Ur Phencyclidine Scrn Ur Amphetamines Screen U Benzodiazepines Scrn Urine Cocaine Screen U Marijuana (THC) Screen Microbiology Microbiology Results: Microbiology 03/19/25 12:17 Gram Stain - Final Cerebrospinal Fluid Fluid Description - Final Assessment and Plan (1) Type 2 diabetes mellitus with hyperglycemia: Status: Acute Plan 79M PMH diabetes, spinal stenosis with chronic left lower extremity pain and weakness presented with progressive bilateral lower extremity weakness Lower extremity weakness Follow up MRI lumbar spine, neuro eval, PT, acetylcholine receptor antibodies Acute kidney injury Due to hypotension and dehydration Improved with IV fluids, hold antihypertensives for now Diabetes Insulin sliding scale DVT prophylaxis - Lovenox Full code reason for continued hospitalization:weakness Quality Stroke Does the patient have a stroke diagnosis?: No VTE Prior VTE?: No VTE Risk Level:: Medical - moderate - high VTE Device Contraindication: Treatment Not Indicated VTE Drug Contraindication: N/A - Med Ordered
[2025-03-20 11:21] LABS: Glucose, Whole Blood 312 mg/dL (60-115)
--- NOTE | 2025-03-20 11:32 | P.CNNE_ITS ---
History of Present Illness Data of Consult Service Date: 03/20/25 Primary Care Provider: MD LUCRECIA Lowe Reason for consult: Leg weakness 79 years old man who has been suffering from chronic back pain for at least few months, had a lumbosacral spine MRI done in November that revealed multilevel [id number] bilateral foraminal stenosis and spinal stenosis, had a flu shot a due to before he said that he could not walk. He came to emergency room and was suspected to have Guillain-[place] syndrome at a lumbar puncture was performed. I interviewed him with his family around. He was not in any distress. He denied any back pain at this time. He said that his legs were not working but he also stated that this was about many other things. He said that he could not do anything anymore. There was no history of recent trauma or loss of bowel bladder control. There was no recent cold or flu-like illness. Review of Systems 2 Review of Systems: Neurological: Complain of bilateral leg weakness Musculoskeletal: Chronic low back pain Genitourinary: No loss of bowel bladder control General: No recent cold or flu-like illness. He had a flu shot few days ago Cardiovascular: No palpitation or shortness of breath or chest pain Respiratory: No shortness of breath or cough GI: No diarrhea or loss of bowel control Psychiatric: Feeling stressed not able to do anything PMFSH Past Medical History Medical History Left leg weakness Osteopenia Erectile dysfunction Type 2 diabetes mellitus with hyperglycemia Polymyalgia rheumatica Thrombocytopenia Hypercholesterolemia GERD (gastroesophageal reflux disease) Carpal tunnel syndrome Diabetic neuropathy Hypertension Family History Family History Father Hypertension CVD (cardiovascular disease) Mother Cancer Surgical History Surgical History History of carpal tunnel release Social History Social History Household Members: Spouse Housing: House Do you presently have visiting nurse or other home services: No Alcohol intake: current Alcohol intake frequency: 0-2 drinks per day Alcohol type: hard liquor Patient Tobacco Use Status: Former Tobacco user Tobacco use type: Cigarette Years Smoked: quit 2005 e-Cigarette/Vaping Use: Never Used Second Hand Smoke Exposure: Yes service: No Current occupational status: retired Cognitive needs: No Hearing needs: No Vision needs: Yes (Glasses) Meds Allergies Allergy/AdvReac Type Severity Reaction Status Date / Time meloxicam Allergy Unknown Unknown Verified 03/19/25 08:02 simvastatin Allergy Unknown Unknown Verified 03/19/25 08:02 Active Medications: Current Medications Acetaminophen (Acetaminophen 325 Mg Tablet) 650 mg PO Q6H PRN PRN Reason: Pain, Mild 1-3,fever,headache Last Admin: 03/19/25 17:47 Dose: 650 mg Atorvastatin Calcium (Atorvastatin Calcium 20 Mg Tablet) 20 mg PO DAILY REPLACED BY [facility] Calcium Carbonate (Calcium Carbonate 750 Mg Tab.Chew) 750 mg PO Q4H PRN PRN Reason: Heartburn Dextrose (Dextrose 50 % 25 Gm/50 Ml Syringe) 25 gm IVPUSH Q15M PRN; Protocol PRN Reason: per Hypoglycemia Standing Ord. Enoxaparin Sodium (Enoxaparin Sodium 40 Mg/0.4 Ml Syringe) 40 mg SUBCUT Q24H REPLACED BY [facility] Gabapentin (Gabapentin 100 Mg Capsule) 100 mg PO BEDTIME REPLACED BY [facility] Glucose (Glucose Gel 15 Gm Gel..Gram.) 15 gm PO Q15M PRN; Protocol PRN Reason: per Hypoglycemia Standing Ord. Insulin Human Lispro (Insulin Lispro 100 Unit/Ml 3 Ml Vial) 0 unit SUBCUT QIDACHS REPLACED BY [facility]; Protocol Last Admin: 03/20/25 08:16 Dose: 6 unit Magnesium Hydroxide (Milk Of Magnesia 30 Ml Oral.Susp) 30 ml PO DAILY PRN PRN Reason: Constipation Melatonin (Melatonin 3 Mg Tablet) 6 mg PO BEDTIME PRN PRN Reason: Insomnia Omeprazole (Omeprazole 20 Mg Capsule.Dr) 20 mg PO DAILY@0630 REPLACED BY [facility] Sodium Chloride (0.9 % Sodium Chloride Flush 3 Ml Syringe) 3 ml IVFLUSH QSHIFT REPLACED BY [facility] Last Admin: 03/20/25 08:17 Dose: 3 ml Tramadol HCl (Tramadol Hcl 50 Mg Tablet) 50 mg PO TID PRN PRN Reason: severe pain Vitamin D (Cholecalciferol (Vitamin D3) 25 Mcg Tablet) 25 mcg PO DAILY REPLACED BY [facility] Home Medications ?Medication ?Instructions ?Recorded ?Confirmed ?Last Taken ?Type cholecalciferol (vitamin D3) 25 25 mcg PO DAILY 03/19/25 03/18/25 History mcg (1,000 unit) capsule lisinopril 40 mg tablet 40 mg PO DAILY 03/16/2002/2803/18/25 History insulin degludec 100 unit/mL (3 15 unit subcut DAILY 0 07/10/21 03/19/25 03/18/25 History mL) subcutaneous pen (Tresiba FlexTouch U-100 insulin) hydrochlorothiazide 12.5 mg tablet 12.5 mg PO DAILY 03/19/25 03/18/25 History insulin lispro 100 unit/mL 1 sliding scale dose subcut QIDWMHS 08/27/23 03/19/25 03/18/25 History subcutaneous pen (Admelog SoloStar U-100 Insulin lispro) blood-glucose sensor (Dexcom G6 #1 ea 10/15/24 5 Unknown History Sensor device) blood-glucose transmitter (Dexcom #1 ea 10/15/2403/16 Unknown History G6 Transmitter device) pen needle, diabetic 32 gauge x #1,200 ea 10/15/24 Unknown History acetaminophen 325 mg tablet 325 mg PO QID PRN Pain 03/19/25 Unknown History Physical Exam 2 Vital Signs: Vital Signs: Last Vital Signs Temp 97.9 F 03/20/25 07:28 Pulse 74 03/20/25 07:28 Resp 18 03/20/25 07:28 BP 127/60 03/20/25 07:28 Pulse Ox 100 03/20/25 07:28 O2 Del Method Room Air 03/20/25 07:28 BMI result Body Mass Index 20.5 Neuro: Other: Mental Status: He is alert and awake with normal spontaneity of speech fluency comprehension and anxious affect. He has following commands. He is not in any distress. Cranial Nerves: CN II: Visual naqvi full to confrontation, visual acuity intact. CN III, IV, : Pupils equal, round, reactive to light and accommodation. Extraocular movements are normal. CN V: Facial sensation is normal. CN VII: Facial movements symmetrical. CN VIII: Hearing intact to bedside conversation is normal. CN IX, X: Palate elevates symmetrically. CN XI: Shoulder shrug and head turn symmetrical. CN XII: Tongue midline without atrophy or fasciculations. Motor: Deep tendon reflexes are absent with flexor plantars. He is able to lift each leg up against gravity and wiggle toes. [id number] is okay. Extrapyramidal: Full facial expressions and blinking. No rigidity. Movements are appropriate with no tremor or abnormality. Speech: Normal; no dysarthria or tremor. Results Labs 03/20/25 06:47 03/20/25 06:47 Labs: Short CBC 03/20/25 Range/Units 06:47 WBC 5.9 (4.8-10.8) X10*3/uL Hgb 9.1 L (14.0-18.0) g/dl Hct 27.3 L (42.0-52.0) % Plt Count 206 (160-400) X10*3/uL BMP 03/20/25 06:47 Sodium 142 Potassium 4.1 Chloride 109 H Carbon Dioxide 24 BUN 36 H Creatinine 1.10 Calcium 9.9 Urine 03/19/25 Range/Units 11:34 Urine Color Yellow Urine Appearance Clear Urine pH 5.5 (5.0-9.0) Ur Specific [place] 1.020 (1.005-1.025) Urine Protein Negative (Neg-Trace) mg/dL Urine Glucose (UA) 500 H (Negative) mg/dL HISTORY: fall HS inability to ambulate. TECHNIQUE: Unenhanced helical CT of the head was performed per standard departmental protocol. Coronal and sagittal reformats of the head were also evaluated. One or more of the following techniques was used for dose reduction: Automated exposure control, adjustment of the mA and/or kV according to patient size, use of iterative reconstruction technique. DLP: 731 mGy-cm COMPARISON: There are no prior studies available for comparison. FINDINGS: BRAIN: There is diffuse prominence of the ventricular system and cortical sulci, consistent with atrophy. Periventricular and subcortical white matter hypodensities are noted which are nonspecific, but often seen in the setting of small vessel ischemic disease. There is no mass effect or midline shift. No intra- or extra-axial fluid collections are identified. SINUSES: The visualized paranasal sinuses are clear. The mastoid air cells and middle ear cavities are well pneumatized. ORBITS: The visualized orbits are unremarkable. BONES/SOFT TISSUES: The extracranial soft tissues are unremarkable. The calvarium is intact. No suspicious lytic or sclerotic lesions. CT/CT head/brain wo IV con IMPRESSION: No evidence of intracranial hemorrhage. EXAMINATION: CT CERVICAL SPINE WITHOUT IV CONTRAST HISTORY: frequent falls inability to walk. TECHNIQUE: Helical CT of the cervical spine was performed per standard departmental protocol. Coronal and sagittal reformatted images were also evaluated. One or more of the following techniques was used for dose reduction: Automated exposure control, adjustment of the mA and/or kV according to patient size, use of iterative reconstruction technique. DLP: 449 mGy-cm COMPARISON: There are no prior studies available for comparison. FINDINGS: CERVICAL SPINE: The vertebral bodies maintain normal height and alignment without evidence of fracture or subluxation. There is moderate degenerative disc disease at the C5-6 and C6-7 levels, with disc space narrowing and osteophyte formation. Evaluation for disc pathology is limited by lack of intrathecal contrast material, however. BRAIN: The visualized portion of the brain is unremarkable. SINUSES: The visualized paranasal sinuses, mastoid air cells and middle ear cavities are unremarkable. LUNG APICES: The visualized lung apices are clear. SOFT TISSUES: The visualized paraspinal soft tissues are unremarkable. CT/CT cervical spine wo IV con IMPRESSION: No evidence of fracture or malalignment of the cervical spine. Degenerative changes as described. EXAMINATION: MR LUMBAR SPINE WITHOUT CONTRAST CLINICAL INFORMATION: Radiculopathy, lumbar region. M54.16. COMPARISON: None available. TECHNIQUE: MRI of the lumbar spine was obtained using routine sequences without contrast. FINDINGS: Last rib-bearing vertebra labeled T12. Bone marrow inhomogeneity throughout the axial skeleton. There is a subtle bone marrow STIR signal abnormality at the endplates of L3 and to a lesser extent L4. Multilevel marginal osteophyte formation and disc desiccation throughout the axial skeleton. Intrinsic hyperintense T1 signal within the intervertebral disc, T11-12 probably related to chondrocalcinosis. There is a levoconvex curvature apex at L2-3. Increased intrinsic hyperintense T1 bone marrow signal throughout the axial skeleton likely fatty replaced. No gross malalignment. Conus medullaris and at pedicle of L1 with normal signal. T11-12: No disc herniation. No neuroforamina stenosis. T12-L1: No disc herniation. Facet joint and ligamentum flavum hypertrophy. Broad-based disc bulging. No compression upon elements. L1-2: Broad-based disc bulging. Facet joint and ligamentum flavum hypertrophy. Reduced AP diameter of the thecal sac and the neural foramina likely encroaching the neural elements. L2-3: Broad-based disc bulging. Facet joint and ligamentum flavum hypertrophy. There is CSF effacement of the thecal sac. There is central spinal canal and bilateral neuroforamina stenosis encroaching the neural elements. L3-4: Broad-based disc bulging. Facet joint and ligamentum flavum hypertrophy. There is central spinal canal and bilateral neuroforamina stenosis encroaching the neural elements. L4-5: Broad-based disc bulging. Facet joint and ligamentum flavum hypertrophy resulting in central spinal canal and bilateral neuroforamina stenosis encroaching posterior compressing the neural elements of the thecal sac. L5-S1: Broad-based disc bulging. Facet joint and ligamentum flavum hypertrophy resulting in central spinal canal and bilateral neuroforamina stenosis encroaching the neural elements. There is fatty atrophy of the lower lumbar muscles from L4 to sacrum. No prevertebral compartment hematoma or mass. There is fluid/T2 signal in the right presacral region. There are multiple different sizes hyperintense T2 cystic lesions in both kidneys, the largest in the right kidney measures 5 cm.. MR/MR lumbar spine wo con IMPRESSION: Multilevel thoracolumbar spondylosis and a levoconvex scoliosis resulting in multilevel central spinal canal and bilateral neuroforamina stenosis from L1-2 to L5-S1 pronounced at L4-5 and L3-4 levels. Concerning osteopenia versus osteoporosis among other calcium metabolic disorders. Bilateral renal cysts. Fluid signal, presacral region of uncertain etiology. Microbiology Microbiology Results: Microbiology 03/19/25 08:18 Blood - Venous Blood Culture - Preliminary No growth after 24 hours. 03/19/25 12:17 Cerebrospinal Fluid Gram Stain - Final 03/19/25 12:17 Cerebrospinal Fluid Fluid Description - Final 03/19/25 12:17 Cerebrospinal Fluid CSF Culture - Preliminary No growth after 1 day Assessment and Plan (1) Lumbar spinal stenosis: Qualifiers: Neurogenic claudication status: without neurogenic claudication Q ualified Code(s): M48.061 - Spinal stenosis, lumbar region without neurogenic claudication Status: Acute (2) Alzheimer dementia: Qualifiers: Alzheimer's disease onset: late onset Dementia severity: moderate D ementia behavioral or psychological symptom: with mood disturbance Qualified Code(s): G30.1 - Alzheimer's disease with late onset; F02.B3 - Dementia in other diseases classified elsewhere, moderate, with mood disturbance Status: Acute (3) Multifactorial gait disorder: Status: Acute 79 years old man with probably diabetic chronic peripheral neuropathy and qbjdxwhz-yq-spywiz bilateral multilevel lumbar spinal stenosis. His overall presentation is also consistent with moderate probably Alzheimer type of dementia. Conservative management is recommended. As I talked to emergency room physician, 1 or 2 doses of 500 mg Solu-Medrol a day can help to alleviate acute symptoms. I do not think this is presentation of Guillain-[place] syndrome. PT OT consultation is recommended. I also recommend starting him on sertraline 25 mg a day. Procedures Date of Service Date of Service: 03/20/25
[2025-03-20 12:00] VITALS: BP 109/51; PULSE 77; RESP 18; TEMP 36.8; O2SAT 99
[2025-03-20 15:40] VITALS: BP 104/56; PULSE 74; RESP 18; TEMP 36.6; O2SAT 100
[2025-03-20 16:12] LABS: Glucose, Whole Blood 260 mg/dL (60-115)
[2025-03-20 20:00] VITALS: BP 101/51; PULSE 75; RESP 16; TEMP 36.7; O2SAT 98
[2025-03-20 21:17] LABS: Glucose, Whole Blood 346 mg/dL (60-115)
[2025-03-21] VITALS: BP 101/55; PULSE 64; RESP 20; TEMP 36.7; O2SAT 95
[2025-03-21 03:40] VITALS: BP 109/59; PULSE 69; RESP 20; TEMP 36.7; O2SAT 97
[2025-03-21 07:28] VITALS: BP 103/56; PULSE 65; RESP 18; TEMP 36.6; O2SAT 95
[2025-03-21 07:52] LABS: Glucose, Whole Blood 228 mg/dL (60-115)
[2025-03-21] MEDS: 0.9 % Sodium Chloride Flush 3 ML SYRINGE IVFLUSH ×3 (08:29→20:36)
[2025-03-21] MEDS: oxyCODONE HCl Immed Release 5 MG TABLET PO (08:29)
--- NOTE | 2025-03-21 09:31 | HO.PM.IMPN ---
Subjective Subjective Date of Service: 03/21/25 Interval History: unresolved weakness, pain Physical Exam Vital Signs: Vital Signs: Last Vital Signs Temp 97.8 F 03/21/25 07:28 Pulse 65 03/21/25 07:28 Resp 18 03/21/25 07:28 BP 103/56 L 03/21/25 07:28 Pulse Ox 95 03/21/25 07:28 O2 Del Method Room Air 03/21/25 07:28 BMI result Body Mass Index 20.5 Neuro: Other: Mental Status: He is alert and awake with normal spontaneity of speech fluency comprehension and anxious affect. He has following commands. He is not in any distress. Cranial Nerves: CN II: Visual naqvi full to confrontation, visual acuity intact. CN III, IV, : Pupils equal, round, reactive to light and accommodation. Extraocular movements are normal. CN V: Facial sensation is normal. CN VII: Facial movements symmetrical. CN VIII: Hearing intact to bedside conversation is normal. CN IX, X: Palate elevates symmetrically. CN XI: Shoulder shrug and head turn symmetrical. CN XII: Tongue midline without atrophy or fasciculations. Motor: Deep tendon reflexes are absent with flexor plantars. He is able to lift each leg up against gravity and wiggle toes. Mlvjjt-ww-[id number] is okay. Extrapyramidal: Full facial expressions and blinking. No rigidity. Movements are appropriate with no tremor or abnormality. Speech: Normal; no dysarthria or tremor. Objective Data Active Medications Acetaminophen (Acetaminophen 325 Mg Tablet) 650 mg PO Q6H PRN PRN Reason: Pain, Mild 1-3,fever,headache Last Admin: 03/21/25 01:16 Dose: 650 mg Documented By: ESTRADA Atorvastatin Calcium (Atorvastatin Calcium 20 Mg Tablet) 20 mg PO DAILY [facility] Last Admin: 03/21/25 08:29 Dose: 20 mg Documented By: BARNEY Calcium Carbonate (Calcium Carbonate 750 Mg Tab.Chew) 750 mg PO Q4H PRN PRN Reason: Heartburn Dextrose (Dextrose 50 % 25 Gm/50 Ml Syringe) 25 gm IVPUSH Q15M PRN; Protocol PRN Reason: per Hypoglycemia Standing Ord. Enoxaparin Sodium (Enoxaparin Sodium 40 Mg/0.4 Ml Syringe) 40 mg SUBCUT Q24H [facility] Last Admin: 03/21/25 08:30 Dose: 40 mg Documented By: BARNEY Gabapentin (Gabapentin 100 Mg Capsule) 100 mg PO BEDTIME [facility] Last Admin: 03/20/25 20:26 Dose: 100 mg Documented By: ESTRADA Glucose (Glucose Gel 15 Gm Gel..Gram.) 15 gm PO Q15M PRN; Protocol PRN Reason: per Hypoglycemia Standing Ord. Insulin Human Lispro (Insulin Lispro 100 Unit/Ml 3 Ml Vial) 0 unit SUBCUT QIDACHS [facility]; Protocol Last Admin: 03/21/25 08:34 Dose: 4 unit Documented By: BARNEY Magnesium Hydroxide (Milk Of Magnesia 30 Ml Oral.Susp) 30 ml PO DAILY PRN PRN Reason: Constipation Melatonin (Melatonin 3 Mg Tablet) 6 mg PO BEDTIME PRN PRN Reason: Insomnia Omeprazole (Omeprazole 20 Mg Capsule.Dr) 20 mg PO DAILY@0630 [facility] Last Admin: 03/21/25 05:33 Dose: 20 mg Documented By: ESTRADA Oxycodone HCl (Oxycodone Hcl Immed Release 5 Mg Tablet) 5 mg PO Q4H PRN PRN Reason: Pain, Severe (Pain Scale 7-10) Last Admin: 03/21/25 08:29 Dose: 5 mg Documented By: BARNEY Prednisone (Prednisone 20 Mg Tablet) 40 mg PO DAILY [facility] Sertraline HCl (Sertraline Hcl 25 Mg Tablet) 25 mg PO DAILY [facility] Last Admin: 03/21/25 08:29 Dose: 25 mg Documented By: BARNEY Sodium Chloride (0.9 % Sodium Chloride Flush 3 Ml Syringe) 3 ml IVFLUSH QSHIFT [facility] Last Admin: 03/21/25 08:29 Dose: 3 ml Documented By: BARNEY Tramadol HCl (Tramadol Hcl 50 Mg Tablet) 50 mg PO TID PRN PRN Reason: severe pain Last Admin: 03/21/25 05:35 Dose: 50 mg Documented By: ESTRADA Vitamin D (Cholecalciferol (Vitamin D3) 25 Mcg Tablet) 25 mcg PO DAILY [facility] Last Admin: 03/21/25 08:29 Dose: 25 mcg Documented By: BARNEY Labs 03/20/25 06:47 03/20/25 06:47 Labs: Laboratory Results - last 24 hr 03/20/25 03/20/25 03/20/25 11:14 16:05 21:04 POC Glucose 312 H 260 H 346 H 03/21/25 07:32 POC Glucose 228 H Microbiology Microbiology Results: Microbiology 03/19/25 12:17 Gram Stain - Final Cerebrospinal Fluid Fluid Description - Final CSF Culture - Preliminary No growth after 2 days 03/19/25 09:45 Blood Culture - Preliminary Blood - Venous No growth after 24 hours. 03/19/25 08:18 Blood Culture - Preliminary Blood - Venous No growth after 24 hours. Assessment and Plan (1) Type 2 diabetes mellitus with hyperglycemia: Status: Acute Plan 79M PMH diabetes, spinal stenosis with chronic left lower extremity pain and weakness presented with progressive bilateral lower extremity weakness Lower extremity weakness Follow up MRI lumbar spine, neuro appreciated will start empiric steroids, PT - recommending STR, follow up acetylcholine receptor antibodies Acute kidney injury Due to hypotension and dehydration Improved with IV fluids, hold antihypertensives for now Diabetes Insulin sliding scale DVT prophylaxis - Lovenox Full code reason for continued hospitalization:weakness, mri pending Quality Stroke Does the patient have a stroke diagnosis?: No VTE Prior VTE?: No VTE Risk Level:: Medical - moderate - high VTE Device Contraindication: Treatment Not Indicated VTE Drug Contraindication: N/A - Med Ordered
[2025-03-21 11:20] LABS: Glucose, Whole Blood 160 mg/dL (60-115)
[2025-03-21 11:41] VITALS: BP 110/59; PULSE 66; RESP 18; TEMP 36.4; O2SAT 100
[2025-03-21 15:23] VITALS: BP 106/55; PULSE 71; RESP 18; TEMP 36.4; O2SAT 99
[2025-03-21 16:22] LABS: Glucose, Whole Blood 300 mg/dL (60-115)
[2025-03-21 20:00] VITALS: BP 114/58; PULSE 72; RESP 18; TEMP 36.7; O2SAT 97
[2025-03-21 20:37] LABS: Glucose, Whole Blood 334 mg/dL (60-115)
[2025-03-22] VITALS (7 sets, daily range): BP systolic 112–123; BP diastolic 55–72; PULSE 61–84; RESP 18; TEMP 36.3–37.2; O2SAT 95–100
[2025-03-22 07:14] LABS: Glucose, Whole Blood 244 mg/dL (60-115)
[2025-03-22 07:46] LABS: Hematocrit 30.6 % (42.0-52.0); Hemoglobin 10.1 g/dl (14.0-18.0); Mean Corpuscular HGB Conc 33.0 g/dl (31.0-36.0); Mean Corpuscular Hemoglobin 29.6 pg (27.0-33.0); Mean Corpuscular Volume 89.7 fL (80.0-98.0); NRBC Abs Auto 0.000 X10*3/uL (0.0-0.012); NRBC Pct Auto 0.0 /100WBC (0.0-0.2); Platelet Count 215 X10*3/uL (160-400); Red Blood Count 3.41 X10*6/uL (4.60-5.80); White Blood Count 8.8 X10*3/uL (4.8-10.8)
[2025-03-22] MEDS: 0.9 % Sodium Chloride Flush 3 ML SYRINGE IVFLUSH ×3 (08:01→20:36)
[2025-03-22] MEDS: Milk of Magnesia 30 ML ORAL.SUSP PO (08:07)
[2025-03-22 08:17] LABS: Alanine Aminotransferase 12 U/L (0-40); Albumin Level 3.3 g/dL (3.5-5.0); Alkaline Phosphatase 77 U/L (39-117); Anion Gap 13 (12-20); Aspartate Amino Transferase 18 U/L (5-37); Blood Urea Nitrogen 37 mg/dL (9-16); Calcium 9.8 mg/dL (8.4-10.2); Carbon Dioxide 25 mmol/L (22-29); Chloride 106 mmol/L (96-108); Creatinine Clr Calc Pharmacy 52.8; Estimated Glomerular Filt Rate > 60; Magnesium 1.8 mg/dL (1.6-2.6); Potassium 3.5 mmol/L (3.3-5.1); Sodium 140 mmol/L (135-145); Total Protein 6.1 g/dL (6.5-8.0)
[2025-03-22 11:36] LABS: Glucose, Whole Blood 344 mg/dL (60-115)
--- NOTE | 2025-03-22 12:14 | MHC.CM.PN ---
Patient is not yet medically cleared for dc (needs MRI of the Spine); PT is recommending STR and CM will continue to follow.
--- NOTE | 2025-03-22 15:09 | HO.PM.IMPN ---
Subjective Subjective Date of Service: 03/22/25 Interval History: No acute issues overnight. Intermittently confused Review of Systems Denies chest pain Denies shortness of breath Denies nausea vomiting diarrhea Denies fever chills Physical Exam Vital Signs: Vital Signs: Last Vital Signs Temp 97.8 F 03/22/25 12:00 Pulse 84 03/22/25 12:00 Resp 18 03/22/25 12:00 BP 113/57 L 03/22/25 12:00 Pulse Ox 100 03/22/25 12:00 O2 Del Method Room Air 03/22/25 12:00 BMI result Body Mass Index 20.5 Const: Other: Awake alert no acute distress Resp: Other: Clear to auscultation bilaterally no rales rhonchi or wheezes Cardio: Other: No S4; positive S1-S2; no S3 murmurs rubs or gallops GI: Other: Soft nontender nondistended normoactive bowel sounds Extrem: Other: No edema bilaterally Objective Data Active Medications Acetaminophen (Acetaminophen 325 Mg Tablet) 650 mg PO Q6H PRN PRN Reason: Pain, Mild 1-3,fever,headache Last Admin: 03/21/25 11:39 Dose: 650 mg Documented By: BARNEY Atorvastatin Calcium (Atorvastatin Calcium 20 Mg Tablet) 20 mg PO DAILY [facility] Last Admin: 03/22/25 08:00 Dose: 20 mg Documented By: KEMAR Calcium Carbonate (Calcium Carbonate 750 Mg Tab.Chew) 750 mg PO Q4H PRN PRN Reason: Heartburn Dextrose (Dextrose 50 % 25 Gm/50 Ml Syringe) 25 gm IVPUSH Q15M PRN; Protocol PRN Reason: per Hypoglycemia Standing Ord. Enoxaparin Sodium (Enoxaparin Sodium 40 Mg/0.4 Ml Syringe) 40 mg SUBCUT Q24H [facility] Last Admin: 03/22/25 08:00 Dose: 40 mg Documented By: KEMAR Gabapentin (Gabapentin 100 Mg Capsule) 100 mg PO BEDTIME [facility] Last Admin: 03/21/25 20:34 Dose: 100 mg Documented By: STEWSILATOYA Glucose (Glucose Gel 15 Gm Gel..Gram.) 15 gm PO Q15M PRN; Protocol PRN Reason: per Hypoglycemia Standing Ord. Insulin Human Lispro (Insulin Lispro 100 Unit/Ml 3 Ml Vial) 0 unit SUBCUT QIDACHS [facility]; Protocol Last Admin: 03/22/25 12:06 Dose: 8 unit Documented By: KEMAR Magnesium Hydroxide (Milk Of Magnesia 30 Ml Oral.Susp) 30 ml PO DAILY PRN PRN Reason: Constipation Last Admin: 03/22/25 08:07 Dose: 30 ml Documented By: KEMAR Melatonin (Melatonin 3 Mg Tablet) 6 mg PO BEDTIME PRN PRN Reason: Insomnia Omeprazole (Omeprazole 20 Mg Capsule.Dr) 20 mg PO DAILY@0630 [facility] Last Admin: 03/22/25 05:45 Dose: 20 mg Documented By: BUSSIEL Oxycodone HCl (Oxycodone Hcl Immed Release 5 Mg Tablet) 5 mg PO Q4H PRN PRN Reason: Pain, Severe (Pain Scale 7-10) Last Admin: 03/21/25 08:29 Dose: 5 mg Documented By: BARNEY Prednisone (Prednisone 20 Mg Tablet) 40 mg PO DAILY [facility] Last Admin: 03/22/25 08:00 Dose: 40 mg Documented By: KEMAR Sertraline HCl (Sertraline Hcl 25 Mg Tablet) 25 mg PO DAILY [facility] Last Admin: 03/22/25 08:00 Dose: 25 mg Documented By: KEMAR Sodium Chloride (0.9 % Sodium Chloride Flush 3 Ml Syringe) [facility] Admin: 03/22/25 08:01 Dose: 3 ml Documented By: KEMAR Tramadol HCl (Tramadol Hcl 50 Mg Tablet) 50 mg PO TID PRN PRN Reason: severe pain Last Admin: 03/21/25 05:35 Dose: 50 mg Documented By: ESTRADA Vitamin D (Cholecalciferol (Vitamin D3) 25 Mcg Tablet) 25 mcg PO DAILY [facility] Last Admin: 03/22/25 08:00 Dose: 25 mcg Documented By: KEMAR Labs 03/22/25 06:54 03/22/25 06:54 Labs: Laboratory Results - last 24 hr 03/21/25 03/21/25 03/22/25 16:14 20:29 06:54 MCV 89.7 MCH 29.6 MCHC 33.0 RDW 12.7 Plt Count 215 MPV 10.1 Absolute Nucleated RBC 0.000 Nucleated RBC % (auto) 0.0 Anion Gap 13 Estim Creat Clear Calc 52.8 Estimated GFR > 60 POC Glucose 300 H 334 H Random Glucose 265 H Calcium 9.8 Magnesium 1.8 Total Bilirubin 0.4 Direct Bilirubin 0.2 AST 18 ALT 12 Alkaline Phosphatase 77 Total Protein 6.1 L Albumin 3.3 L 03/22/25 03/22/25 07:08 11:30 MCV MCH MCHC RDW Plt Count MPV Absolute Nucleated RBC Nucleated RBC % (auto) Anion Gap Estim Creat Clear Calc Estimated GFR POC Glucose 244 H 344 H Random Glucose Calcium Magnesium Total Bilirubin Direct Bilirubin AST ALT Alkaline Phosphatase Total Protein Albumin Microbiology Microbiology Results: Microbiology 03/19/25 12:17 Gram Stain - Final Cerebrospinal Fluid Fluid Description - Final CSF Culture - Final No growth after 3 days. 03/19/25 09:45 Blood Culture - Preliminary Blood - Venous No growth after 48 hours. 03/19/25 08:18 Blood Culture - Preliminary Blood - Venous No growth after 48 hours. Assessment and Plan (1) Leg weakness, bilateral: Status: Acute (2) DEVON (acute kidney injury): Status: Acute (3) Type 2 diabetes mellitus with hyperglycemia: Status: Acute Plan 79M PMH diabetes, spinal stenosis with chronic left lower extremity pain and weakness presented with progressive bilateral lower extremity weakness; improved with steroids 1.Lower extremity weakness -MRI lumbar spine complete. . . Await reading -continue prednisone as ordered; PT - recommending STR, -acetylcholine receptor antibodies pending 2.Acute kidney injury -responded to volume -follow renals/divalent 3.Diabetes -acceptable control on current therapies -lispro correctional scale -adjust as indicated Lovenox Full code reason for continued hospitalization:weakness, mri pending Quality Stroke Does the patient have a stroke diagnosis?: No VTE Prior VTE?: No VTE Risk Level:: Medical - moderate - high VTE Device Contraindication: Treatment Not Indicated VTE Drug Contraindication: N/A - Med Ordered
[2025-03-22 16:19] LABS: Glucose, Whole Blood 386 mg/dL (60-115)
[2025-03-22 20:00] LABS: Glucose, Whole Blood 378 mg/dL (60-115)
[2025-03-23] VITALS (7 sets, daily range): BP systolic 119–136; BP diastolic 57–78; PULSE 61–87; RESP 16–19; TEMP 36.3–36.7; O2SAT 97–100
[2025-03-23 07:25] LABS: Glucose, Whole Blood 258 mg/dL (60-115)
[2025-03-23] MEDS: 0.9 % Sodium Chloride Flush 3 ML SYRINGE IVFLUSH ×3 (09:04→21:25)
[2025-03-23 11:48] LABS: Glucose, Whole Blood 358 mg/dL (60-115)
--- NOTE | 2025-03-23 11:58 | MHC.CM.PN ---
Per MD, Patient is now willing to go to STR; CM has expanded SNF search to include all area SNFs contracted with Patient's insurance. CM will continue to follow.
--- NOTE | 2025-03-23 13:15 | MHC.CM.PN ---
Addendum entered by Apoorva Neff 03/23/25 14:14: Per MD's request, CM spoke with Patient and his , from Patient's room phone. Patient has now accepted a bed offer from [facility], that will be available tomorrow. is aware. Addendum entered by Apoorva Neff 03/23/25 13:54: CM presented 4 SNF bed offers to Patient ([facility], [facility], [facility], and [facility]); Patient has declined all bed offers and stated that he wants to go home even if it is AMA. Patient stated that his and [facility] transport him. MD is aware. Original Note: Per MD, Patient is now agreeable to SNF/STR. With Patient's approval, [facility] has extended the SNF bed search. CM will follow.
--- NOTE | 2025-03-23 14:17 | P.PNIM_ITS ---
Subjective Subjective Date of Service: 03/23/25 Interval History: Somewhat more confused this a.m.. Review of Systems Denies chest pain Denies shortness of breath Denies nausea vomiting diarrhea Denies fever chills Physical Exam 2 Vital Signs: Vital Signs: Last Vital Signs Temp 97.6 F 03/23/25 12:00 Pulse 77 03/23/25 12:00 Resp 16 03/23/25 12:00 BP 119/58 L 03/23/25 12:00 Pulse Ox 99 03/23/25 12:00 O2 Del Method Room Air 03/23/25 12:00 BMI result Body Mass Index 20.5 Const: Other: Awake alert no acute distress Resp: Other: Clear to auscultation bilaterally no rales rhonchi or wheezes Cardio: Other: No S4; positive S1-S2; no S3 murmurs rubs or gallops GI: Other: Soft nontender nondistended normoactive bowel sounds Extrem: Other: No edema bilaterally Objective Data Active Medications Acetaminophen (Acetaminophen 325 Mg Tablet) 650 mg PO Q6H PRN PRN Reason: Pain, Mild 1-3,fever,headache Last Admin: 03/21/25 11:39 Dose: 650 mg Documented By: BARNEY Atorvastatin Calcium (Atorvastatin Calcium 20 Mg Tablet) 20 mg PO DAILY [facility] Last Admin: 03/23/25 09:04 Dose: 20 mg Documented By: PATY Calcium Carbonate (Calcium Carbonate 750 Mg Tab.Chew) 750 mg PO Q4H PRN PRN Reason: Heartburn Dextrose (Dextrose 50 % 25 Gm/50 Ml Syringe) 25 gm IVPUSH Q15M PRN; Protocol PRN Reason: per Hypoglycemia Standing Ord. Enoxaparin Sodium (Enoxaparin Sodium 40 Mg/0.4 Ml Syringe) 40 mg SUBCUT Q24H [facility] Last Admin: 03/23/25 09:05 Dose: 40 mg Documented By: PATY Gabapentin (Gabapentin 100 Mg Capsule) 100 mg PO BEDTIME [facility] Last Admin: 03/22/25 20:36 Dose: 100 mg Documented By: VINICIO Glucose (Glucose Gel 15 Gm Gel..Gram.) 15 gm PO Q15M PRN; Protocol PRN Reason: per Hypoglycemia Standing Ord. Insulin Human Lispro (Insulin Lispro 100 Unit/Ml 3 Ml Vial) 0 unit SUBCUT QIDACHS [facility]; Protocol Last Admin: 03/23/25 12:02 Dose: 10 unit Documented By: PATY Comments: MD brower Magnesium Hydroxide (Milk Of Magnesia 30 Ml Oral.Susp) 30 ml PO DAILY PRN PRN Reason: Constipation Last Admin: 03/22/25 08:07 Dose: 30 ml Documented By: KEMAR Melatonin (Melatonin 3 Mg Tablet) 6 mg PO BEDTIME PRN PRN Reason: Insomnia Last Admin: 03/22/25 20:39 Dose: 6 mg Documented By: VINICIO Omeprazole (Omeprazole 20 Mg Capsule.Dr) 20 mg PO DAILY@0630 [facility] Last Admin: 03/23/25 05:37 Dose: 20 mg Documented By: VINICIO Oxycodone HCl (Oxycodone Hcl Immed Release 5 Mg Tablet) 5 mg PO Q4H PRN PRN Reason: Pain, Severe (Pain Scale 7-10) Last Admin: 03/21/25 08:29 Dose: 5 mg Documented By: BARNEY Prednisone (Prednisone 20 Mg Tablet) 40 mg PO DAILY [facility] Last Admin: 03/23/25 09:05 Dose: 40 mg Documented By: PATY Sertraline HCl (Sertraline Hcl 25 Mg Tablet) 25 mg PO DAILY [facility] Last Admin: 03/23/25 09:05 Dose: 25 mg Documented By: PATY Sodium Chloride (0.9 % Sodium Chloride Flush 3 Ml Syringe) 3 ml IVFLUSH QSHIFT [facility] Last Admin: 03/23/25 09:04 Dose: 3 ml Documented By: PATY Tramadol HCl (Tramadol Hcl 50 Mg Tablet) 50 mg PO TID PRN PRN Reason: severe pain Last Admin: 03/21/25 05:35 Dose: 50 mg Documented By: ESTRADA Vitamin D (Cholecalciferol (Vitamin D3) 25 Mcg Tablet) 25 mcg PO DAILY [facility] Last Admin: 03/23/25 09:04 Dose: 25 mcg Documented By: PATY Labs 03/22/25 06:54 03/22/25 06:54 Labs: Laboratory Results - last 24 hr 03/22/25 03/22/25 03/23/25 16:08 19:47 07:18 POC Glucose 386 H* 378 H* 258 H 11/25/25 11:35 POC Glucose 358 H* Assessment and Plan (1) Leg weakness, bilateral: Status: Acute (2) DEVON (acute kidney injury): Status: Acute Plan 79M PMH diabetes, spinal stenosis with chronic left lower extremity pain and weakness presented with progressive bilateral lower extremity weakness; improved with steroids 1.Lower extremity weakness -MRI lumbar spine complete. . . No changes from previous MRI -continue prednisone as ordered; PT - recommending STR, .. Patient now in agreement -acetylcholine receptor antibodies pending 2.Acute kidney injury -responded to volume -follow renals/divalent 3.Diabetes -acceptable control on current therapies -lispro correctional scale -adjust as indicated Lovenox Full code reason for continued hospitalization:weakness, mri pending Quality Stroke Does the patient have a stroke diagnosis?: No VTE Prior VTE?: No VTE Risk Level:: Medical - moderate - high VTE Device Contraindication: Treatment Not Indicated VTE Drug Contraindication: N/A - Med Ordered
--- NOTE | 2025-03-23 15:14 | MHC.CM.PN ---
[facility] left a detailed message for [facility] Cle[facility] Specialist Jaiden @ [phone], requesting a copy of Patient's HCP to be faxed to [facility].
[2025-03-23] MEDS: Milk of Magnesia 30 ML ORAL.SUSP PO (15:17)
[2025-03-23 16:20] LABS: Glucose, Whole Blood 397 mg/dL (60-115)
[2025-03-23 20:30] LABS: Glucose, Whole Blood 355 mg/dL (60-115)
[2025-03-23 20:43] LABS: Lyme IgG CSF Immunoblot NO BANDS DETECTED; Lyme IgM CSF Immunoblot NO BANDS DETECTED
[2025-03-24 03:10] VITALS: BP 140/70; PULSE 65; RESP 18; TEMP 36.1; O2SAT 100
[2025-03-24 07:30] LABS: Glucose, Whole Blood 250 mg/dL (60-115)
[2025-03-24 08:00] VITALS: BP 127/72; PULSE 66; RESP 19; TEMP 36.4; O2SAT 98
[2025-03-24] MEDS: 0.9 % Sodium Chloride Flush 3 ML SYRINGE IVFLUSH (08:57)
--- NOTE | 2025-03-24 09:33 | MHC.CM.PN ---
Per MD, Patient is medically cleared for dc to SNF/STR today. Patient will dc to [facility] today at 2PM, via [facility]. IMM was addressed with Patient at bedside and with Patient's permission, CM informed /Pratibha # [phone]. of the dc plan.
[2025-03-24 11:29] LABS: Glucose, Whole Blood 373 mg/dL (60-115)
[2025-03-24 11:59] VITALS: BP 120/59; PULSE 83; RESP 16; TEMP 36.8; O2SAT 96
--- NOTE | 2025-03-24 13:35 | P.DS_ITS ---
DS: Providers Provider Date of Service: 03/24/25 Date of admission: 03/19/25 14:06 Date of discharge: 03/24/25 Primary care physician: Radha Barrios MD Consults: 03/19/25 15:12 Consult to Neurology Routine Consulting Provider: [facility] Reason for consultation: leg weakness, ptosis Has provider been notified: No DS: Diagnosis Discharge Diagnosis (1) Leg weakness, bilateral: Status: Acute (2) DEVON (acute kidney injury): Status: Acute DS: Summary Hospital Course Hospital Course: 79-year-old male with history of diabetes, back pain presents to the emergency department with lower extremity weakness. Patient has been having lower extremity weakness since over the summer. He has been seen in the spine clinic for left leg weakness, falls and radicular pain in the left buttock. He was taking tramadol and Advil for the pain. MRI showed stenosis primarily at L4/5 where there is moderate to severe stenosis. He was sent for EMG studies to evaluate for polyneuropathy and tentative plans for possible decompression of the stenotic segments. On Saturday he received a flu shot. Since that time he reports increasing lower extremity weakness. He has had trouble getting up out of the chair. He uses a walker at baseline but required multiple people to assist him up in the emergency department. In the emergency department he underwent LP which revealed an elevated protein. The case was discussed with Neurology who recommended more spine which is pending at this time. Hospital course Patient admitted to telemetry where monitor failed to demonstrate any acute dysrhythmias. Seen by Neurology who felt that a repeat MRI was indicated. Did not feel this was Fidelina Flushing however given his spinal condition recommended a short course of steroids which did improve his symptoms. MRI done in essentially had no change from that done in November of 2024. Patient did exhibit some intermittent confusion; seen by PT and who recommended short-term rehab. Neurology recommended sertraline which was implemented Time Attestation Discharge Coordination Time (in mins): 35 Quality: Safe Use of Opioids Does Pt have an Active Cancer Diagnosis on the Problem List?: No Quality: Stroke Does the patient have a stroke diagnosis?: No Physical Exam Vital Signs: Vital Signs: Last Vital Signs Temp 98.2 F 03/24/25 11:59 Pulse 83 03/24/25 11:59 Resp 16 03/24/25 11:59 BP 120/59 L 03/24/25 11:59 Pulse Ox 96 03/24/25 11:59 O2 Del Method Room Air 03/24/25 11:59 BMI result Body Mass Index 20.5 Const: Other: Awake alert no acute distress Resp: Other: Clear to auscultation bilaterally no rales rhonchi or wheezes Cardio: Other: No S4; positive S1-S2; no S3 murmurs rubs or gallops GI: Other: Soft nontender nondistended normoactive bowel sounds Extrem: Other: No edema bilaterally DS: Data Data Completed and Pending Labs on day of discharge: Laboratory Results - last 24 hr 03/19/25 03/23/25 03/23/25 12:17 16:01 20:15 POC Glucose 397 H* 355 H* CSF Lyme IgG (Immblot) NO BANDS DETECTED CSF Lyme IgG Bands Det TNP CSF Lyme IgM (Immblot) NO BANDS DETECTED CSF Lyme IgM Bands Det TNP 03/24/25 03/24/25 07:22 11:22 POC Glucose 250 H 373 H* CSF Lyme IgG (Immblot) CSF Lyme IgG Bands Det CSF Lyme IgM (Immblot) CSF Lyme IgM Bands Det Discharge Plan Discharge Anticipated Discharge Date/Time: 03/24/25 13:04 Patient Disposition: Xfer SNF Discharge Diagnosis: Bilateral leg weakness Referrals: [facility] Mejia [Outside] - 1 Week Po,Radha Pedraza MD [Primary Care Provider, Internal Medicine] - 1 Week Discharge Medications: New sertraline 25 mg Tablet 25 mg PO DAILY Qty: 30 0RF Continued omeprazole 20 mg capsule,delayed release(DR/EC) 20 mg PO DAILY Qty: 90 3RF atorvastatin 20 mg tablet 20 mg PO DAILY Qty: 90 3RF amlodipine 10 mg tablet 10 mg PO DAILY Qty: 90 3RF naproxen 500 mg tablet,delayed release (DR/EC) 500 mg PO BID PRN (Reason: pain (scale score 4-6)) Qty: 30 0RF Rx Instructions: Patient tolerated before (DME) walker Misc See Rx Instructions .Route Qty: 1 0RF Rx Instructions: As directed acetaminophen 325 mg Tablet 325 mg PO QID PRN (Reason: Pain) cholecalciferol (vitamin D3) 25 mcg (1,000 unit) capsule 25 mcg PO DAILY lisinopril 40 mg tablet 40 mg PO DAILY Tresiba FlexTouch U-100 100 unit/mL (3 mL) insulin pen 15 unit subcut DAILY hydrochlorothiazide 12.5 mg tablet 12.5 mg PO DAILY insulin lispro [Admelog SoloStar U-100 Insulin] 100 unit/mL insulin pen 1 sliding scale dose subcut QIDWMHS Protocol: Insulin Correction Scale Less than or equal to 110 ---- Give (units): 0 111 to 150 Give (units): 0 151 to 200 Give (units): 2 201 to 250 Give (units): 4 251 to 300 Give (units): 6 301 to 350 Give (units): 8 Greater than 350 Give (units): 10 Call MD if Blood Glucose > : 350 (DME) Dexcom G6 Sensor Device See Rx Instructions .ROUTE Q10D Qty: 1 Rx Instructions: As directed (DME) Dexcom G6 Transmitter Device See Rx Instructions .ROUTE DIRECTED Qty: 1 Rx Instructions: As directed (DME) pen needle, diabetic 32 gauge x 5/32 needle See Rx Instructions .ROUTE .MEDSUPPLY Qty: 1200 Rx Instructions: As directed tadalafil 10 mg tablet 10 mg PO Q OTHER DAY PRN (Reason: sexual activity) Qty: 30 3RF Rx Instructions: administer approximately 30min before sexual activity; do not use more than 1 dose per 24hrs sennosides-docusate sodium [Senna Plus] 8.6-50 mg tablet 2 tab-cap PO BEDTIME Qty: 60 3RF gabapentin 100 mg capsule 100 mg PO BEDTIME Qty: 30 2RF Discontinued tramadol 50 mg tablet 50 mg PO TID PRN (Reason: severe pain) 15 Days Qty: 45 0RF Discharge Orders: Discharge Order (Routine); Ordered 03/24/25 Ordered By: Jona Owen Diet: Advance to usual diet Activity on Discharge: As tolerated Stand Alone Forms: Patient Portal Discharge page Print Language: Lithuanian Care Plan Goals: Continue all meds as listed on transfer summary Health Concerns: Further changes as per receiving physician based on clinical course Plan of Treatment: As per receiving facility Assessment: See discharge summary
[2025-03-28 07:04] LABS: Acetylcholine Recept. Blocking <15 (<15)
--- NOTE | 2025-03-28 10:27 | P.CDIM_ITS ---
PROVIDER RESPONSE TEXT: To clarify, the appropriate diagnosis supported by the clinical indicators: Diabetes mellitus Type 2 with hyperglycemia QUERY TEXT: PHYSICIAN'S DOCUMENTATION REQUEST Date of Query: 03/23/2025 07:33 AM EST Patient Name: Maksim Pa Admit Date: 03/19/2025 Dear Jona Owen DO, A review of the medical record indicates additional documentation may be needed. Please review below and update the documentation accordingly. Clinical Indicators: Progress note 03/22/25 - Diabetes Mellitus Type 2 POC glucose 386 H Insulin If agree with this diagnosis possible to place it within the body of the written Plan in the Progress note? Diabetes mellitus Type 2 with hyperglycemia Other specified Other (explain) Clinically unable to determine (explain) Thank you, Brooklyn Yost, CCS, CDIS Use of terms such as suspected, likely, concern for, or probable (associated with a specific diagnosis that is being evaluated, monitored, or treated as if it exists) are acceptable and can be coded in the inpatient setting, when documented at the time of discharge. Please use your independent medical judgment in providing your response. THIS QUERY IS PART OF THE PERMANENT MEDICAL RECORD
--- OUTSIDE RECORDS SUMMARY | 2025-04-24 19:00 | XMS_ITS | Clinical Summary ---
Author Organization Unknown Care Team Providers Care Hypoid Gear Tester Name Role Phone PO PRAKASH KIRAN Unavailable Unavaila ble FECTEAU MOVIE SHOT CAMERA OPERATOR, PHUONG Unavailable Unavailable KOREY RN, ALLY Unavailable Unavailable KEENA PT, PANKAJ Unavailable Unavailable Payers Payer Name Policy Type Policy Number Effective Date Expira tion Date MEDICARE.[facility] [id number] Problems Condition Name Condition Details Condition Category [...] USE OF INSULIN Active 10-28 00:00: 00 PLANER HAND (CURRENT) USE OF SYSTEMIC STEROIDS Active 10-28 00:00: 00 PLANER HAND (CURRENT) USE OF OPIATE ANALGESIC Active 10-28 [...] 10-27 00:00: 00 10-28 00:00 :00 No [id number] Per instruc tions Per instructio ns (route: oral) Med Classific ation: Analgesic , Anti-infl ammatory or Antipyret ic Dexcom G6 Sensor device 10-26 00:00: 00 10-28 00:00 :00 No [id number] Unavailable Per instruc tions Per instructio ns (route: miscellane ous) Med Classific ation: Medical Supplies and Durable Medical Equipment (DME) gabapentin 100 mg capsule 10-21 00:00: 00 10-28 00:00 :00 No [id number] Per instruc tions Per instructio ns (route: oral) Med Classific ation: Central Nervous System Agents amlodipine 10 mg tablet 10-19 00:00: 00 10-28 00:00 :00 No [id number] ESSENTIAL (PRIMARY) HYPERTENSIO N Per instruc tions DAILY Per instructio ns DAILY (route: oral) Med Classific ation: Cardiovas cular Therapy Agents Carin 2nd Gen Pen Needle 32 gauge x 5/32 10-19 00:00: 00 10-28 00:00 :00 No [id number] Per instruc tions INSULIN 5 TIMES DAILY Per instructio ns INSULIN 5 TIMES DAILY (route: miscellane ous) Med Classific ation: Medical Supplies and Durable Medical Equipment (DME) lisinopril 40 mg tablet 10-19 00:00: 00 10-28 00:00 :00 No [id number] ESSENTIAL (PRIMARY) HYPERTENSIO N Per instruc tions DAILY Per instructio ns DAILY (route: oral) Med Classific ation: Cardiovas cular Therapy Agents baclofen 10 mg tablet 10-15 00:00: 00 10-28 00:00 :00 No [id number] Per instruc tions Per instructio ns (route: oral) Med Classific ation: Locomotor System tramadol 50 mg tablet 10-15 00:00: 00 10-28 00:00 :00 No [id number] Per instruc tions Per instructio ns (route: oral) Med Classific ation: Analgesic , Anti-infl ammatory or Antipyret ic amoxicillin 875 mg tablet 10-13 00:00: 00 10-28 00:00 :00 No [id number] Per instruc tions Per instructio ns (route: oral) Med Classific ation: Anti-Infe ctive Agents chlorhexidi ne gluconate 0.12 % mouthwash 10-13 00:00: 00 10-28 00:00 :00 No [id number] Per instruc tions Per instructio ns (route: mucous membrane) Med Classific ation: Mouth-Thr oat-Denta l - Preparati ons cyclobenzap rine 10 mg tablet 10-09 00:00: 00 10-28 00:00 :00 No [id number] Per instruc tions Per instructio ns (route: oral) Med Classific ation: Locomotor System tadalafil 10 mg tablet 10-08 00:00: 00 10-28 00:00 :00 No [id number] MALE ERECTILE DYSFUNCTION , UNSPECIFIED Per instruc tions EVERY OTHER DAY NEEDED FOR SEXUAL ACTIVITY APPROXIMAT GONZALEZ 30 MINUTES PER 24 HOURS Per instructio ns EVERY OTHER DAY NEEDED FOR SEXUAL ACTIVITY APPROXIMAT GONZALEZ 30 MINUTES PER 24 HOURS (route: oral) Med Classific ation: Drugs to treat Erectile Dysfuncti on Ketostix strips 10-05 00:00: 00 10-28 00:00 :00 No [id number] 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 Per instruc tions AND DISCARD 1 TEST STRIP EVERY DAY NEEDED Per instructio ns AND DISCARD 1 TEST STRIP EVERY DAY NEEDED (route: miscellane ous) Med Classific ation: Medical Supplies and Durable Medical Equipment (DME) acetaminoph en 325 mg tablet 10-28 00:00: 00 Yes [id number] PAIN 2 tablet EVERY 4 HOURS 2 tablet EVERY 4 HOURS (route: oral) Med Classific ation: Analgesic , Anti-infl ammatory or Antipyret ic amlodipine 10 mg tablet 10-28 00:00: 00 Yes [id number] LOWERS BLOOD PRESSURE 1 tablet DAILY 1 tablet DAILY (route: oral) Med Classific ation: Cardiovas cular Therapy Agents atorvastati n 20 mg tablet 10-28 00:00: 00 Yes [id number] LOWERS CHOLESTEROL 1 tablet DAILY 1 tablet DAILY (route: oral) Med Classific ation: Cardiovas cular Therapy Agents cholecalcif swapna (vitamin D3) 25 mcg (1,000 unit) tablet 10-28 00:00: 00 Yes [id number] SUPPLEMENT 1 tablet DAILY 1 tablet DAILY (route: oral) Med Classific ation: Electroly te Balance-N utritiona l Products gabapentin 100 mg tablet 10-28 00:00: 00 Yes [id number] PAIN MANAGEMENT 1 tablet BEDTIME 1 tablet BEDTIME (route: oral) Med Classific ation: Central Nervous System Agents hydrochloro thiazide 12.5 mg tablet 10-28 00:00: 00 Yes [id number] FLUID RETENTION 1 tablet DAILY 1 tablet DAILY (route: oral) Med Classific ation: Cardiovas cular Therapy Agents insulin lispro (U-100) 100 unit/mL subcutaneou s pen 10-28 00:00: 00 Yes [id number] DIABETES Per instruc tions WITH MEALS Per instructio ns WITH MEALS (route: subcutaneo ) Med Classific ation: Endocrine lisinopril 40 mg tablet 10-28 00:00: 00 Yes [id number] LOWERS BLOOD PRESSURE 1 tablet DAILY 1 tablet DAILY (route: oral) Med Classific ation: Cardiovas cular Therapy Agents morphine 15 mg immediate release tablet 10-28 00:00: 00 Yes [id number] MODERATE PAIN 1 tablet EVERY 6 HOURS 1 tablet EVERY 6 HOURS (route: oral) Med Classific ation: Analgesic , Anti-infl ammatory or Antipyret ic omeprazole 20 mg capsule,del ayed release 10-28 00:00: 00 Yes [id number] GERD 1 capsule DAILY 1 capsule DAILY (route: oral) Med Classific ation: Gastroint estinal Therapy Agents prednisone 10 mg tablet 10-28 00:00: 00 Yes [id number] POLYMYALGIA 1 tablet DAILY 1 tablet DAILY (route: oral) Med Classific ation: Endocrine Tresiba FlexTouch U-100 insulin 100 unit/mL (3 mL) subcutaneou s pen 10-28 00:00: 00 Yes [id number] DIABETES 15 unit BEDTIME 15 unit BEDTIME (route: subcutaneo us) Med Classific ation: Endocrine naproxen 500 mg tablet 10-28 00:00: 00 Yes [id number] PAIN 1 tablet 2 TIMES DAILY 1 tablet 2 TIMES DAILY (route: oral) Med Classific ation: Analgesic , Anti-infl ammatory or Antipyret ic naproxen 500 mg tablet 11-18 00:00: 00 12-18 23:59 :00 No [id number] PAIN 1 tablet 2 TIMES DAILY 1 tablet 2 TIMES DAILY (route: oral) Med Classific ation: Analgesic , Anti-infl ammatory or Antipyret ic oxycodone 5 mg tablet 11-18 00:00: 00 Yes [id number] PAIN 1 tablet DAILY 1 tablet DAILY (route: oral) Med Classific ation: Analgesic , Anti-infl ammatory or Antipyret ic tramadol 50 mg tablet 12-18 00:00: 00 Yes [id number] SEVERE PAIN 1 tablet 3 TIMES DAILY [...] TO EVALUATE, OBSERVE / ASSESS, AND MONITOR, MOVIE SHOT CAMERA OPERATOR TO OBSERVE AND MONITOR, PROVIDE SKILLED THERAPEUTIC INTERVENTION, ACTIVITY, EDUCATION, AND TRAINING TO ADDRESS; [code = AGENCY MAY PERFORM A RESUMPTION OF CARE VISIT FOLLOWING ANY HOSPITAL ADMISSION. PT TO EVALUATE, OBSERVE / ASSESS, AND MONITOR, MOVIE SHOT CAMERA OPERATOR TO OBSERVE AND MONITOR, PROVIDE SKILLED THERAPEUTIC INTERVENTION, ACTIVITY, EDUCATION, AND TRAINING TO ADDRESS;] Future Scheduled Test PT/MOVIE SHOT CAMERA OPERATOR TO PROVIDE GAIT TRAINING FOR IMPROVED MOBILITY AND /OR TO NORMALIZE GAIT PATTERN [code = PT/MOVIE SHOT CAMERA OPERATOR TO PROVIDE GAIT TRAINING FOR IMPROVED MOBILITY AND /OR TO NORMALIZE GAIT PATTERN] Future Scheduled Test PT/MOVIE SHOT CAMERA OPERATOR TO PROVIDE STAIR TRAINING [code = PT/MOVIE SHOT CAMERA OPERATOR TO PROVIDE STAIR TRAINING] Future Scheduled Test NEUROMUSCU LAR RE-EDUCATION / BALANCE / POSTURAL CONTROL (PT) [code = NEUROMUSCULAR RE-EDUCATION / BALANCE / POSTURAL CONTROL (PT)] Future Scheduled Test THERAPEUTI C EXERCISES AND ESTABLISHING A HOME EXERCISE PROGRAM (PT/MOVIE SHOT CAMERA OPERATOR) [code = THERAPEUTIC EXERCISES AND ESTABLISHING A HOME EXERCISE PROGRAM (PT/MOVIE SHOT CAMERA OPERATOR)] Future Scheduled Test PT/MOVIE SHOT CAMERA OPERATOR TO IDENTIFY FALL RISK FACTORS; EDUCATE THE PATIENT/CAREGIVER ON WAYS TO REDUCE FALL RISK FACTORS AND ESTABLISH HOME EXERCISE PROGRAM TO MINIMIZE FALL RISK. MAY TEACH THE PATIENT FLOOR RECOVERY WHEN CLINICALLY APPROPRIATE [code = PT/MOVIE SHOT CAMERA OPERATOR TO IDENTIFY FALL RISK FACTORS; EDUCATE THE PATIENT/CAREGIVER ON WAYS TO REDUCE FALL RISK FACTORS AND ESTABLISH HOME EXERCISE PROGRAM TO MINIMIZE FALL RISK. MAY TEACH THE PATIENT FLOOR RECOVERY WHEN CLINICALLY APPROPRIATE] Future Scheduled Test PT/MOVIE SHOT CAMERA OPERATOR TO EDUCATE ON ARTHRITIS SELF-MANAGEMENT PT/MOVIE SHOT CAMERA OPERATOR MAY TEACH PATIENT APPLICATION OF CRYOTHERAPY/ HEAT FOR PAIN / SWELLING UP TO 20 MIN AT A TIME [code = PT/MOVIE SHOT CAMERA OPERATOR TO EDUCATE ON ARTHRITIS SELF-MANAGEMENT PT/MOVIE SHOT CAMERA OPERATOR MAY TEACH PATIENT APPLICATION OF CRYOTHERAPY/ HEAT FOR PAIN / SWELLING UP TO 20 MIN AT A TIME] Future Scheduled Test PT / MOVIE SHOT CAMERA OPERATOR M AY EDUCATE ON PAIN MANAGEMENT CLINICALLY INDICATED, INCLUDING NON-PHARMACOLOGICAL PAIN REDUCTION TECHNIQUES AND USE OF CRYOTHERAPY OR HEAT UP TO 20 MIN AT A TIME FOR PAIN MANAGEMENT [code = PT / MOVIE SHOT CAMERA OPERATOR MAY EDUCATE ON PAIN MANAGEMENT CLINICALLY INDICATED, INCLUDING NON-PHARMACOLOGICAL PAIN REDUCTION TECHNIQUES AND USE OF CRYOTHERAPY OR HEAT UP TO 20 MIN AT A TIME FOR PAIN MANAGEMENT] Future Scheduled Test PT / MOVIE SHOT CAMERA OPERATOR T O MONITOR FOR HYPO/HYPERGLYCEMIA AND CONDUCT ROUTINE FOOT INSPECTIONS. RECORD PATIENT REPORTED BLOOD SUGAR LEVELS AND NOTIFY PHYSICIAN AND/OR THE RN CLINICAL SURVEILLANCE SENSOR OPERATOR FOR PHYSICIAN NOTIFICATION IF BLOOD SUGAR LEVELS ARE OUTSIDE ORDERED PARAMETERS. TEACH PATIENT/CAREGIVER ON DAILY FOOT INSPECTIONS [code = PT / MOVIE SHOT CAMERA OPERATOR TO MONITOR FOR HYPO/HYPERGLYCEMIA AND CONDUCT ROUTINE FOOT INSPECTIONS. RECORD PATIENT REPORTED BLOOD SUGAR LEVELS AND NOTIFY PHYSICIAN AND/OR THE RN CLINICAL SURVEILLANCE SENSOR OPERATOR FOR PHYSICIAN NOTIFICATION IF BLOOD SUGAR LEVELS [...] End Date/Time Encounter Type Admission Type Attending [facility] Facility Care Department Encounter ID Discharge Date Discharge Status Discharge Condition Discharge Reason Percent Goals Met 2025-02-25 00:00:00 2025-04-25 00:00:00 Outpatient RECERTIFIC PANKAJ HASSAN [facility] [id number] 0.00
== END 2025-03-24 14:27 | disposition skilled nursing facility (03) | DRG 948 ==
LOC: HO.ED 13:46 → HO.EDOVER 14:07 → HO.IMC 23:52
PROVIDERS: Internal Medicine; Physician Assistant; Admitting Provider Physician Assistant Medical; Emergency Provider Emergency Medicine; PCP Internal Medicine; Visit Provider Hospitalist
DX: R53.1 Weakness (principal); N17.9 Acute kidney failure, unspecified; G30.9 Alzheimer's disease, unspecified; E11.65 Type 2 diabetes mellitus with hyperglycemia; E11.42 Type 2 diabetes mellitus with diabetic polyneuropathy; F02.B0 Dementia in other diseases classified elsewhere, moderate, without behavioral disturbance, psychotic disturbance, mood disturbance, and anxiety; M48.061 Spinal stenosis, lumbar region without neurogenic claudication; Z87.891 Personal history of nicotine dependence; Z79.84 Long term (current) use of oral hypoglycemic drugs; Z79.899 Other long term (current) drug therapy; Z23 Encounter for immunization
CPT/HCPCS: 36415; 70450; 71045; 71250; 72125; 72148; 74176; 80048; 80053; 80076; 80143; 80179; 80307; 81003; 82550; 82945; 82947; 83605; 83735; 83880; 84157; 85025; 85027; 85610; 85652; 86041; 86042; 86043; 86140; 86617; 87015; 87040; 87070; 87205; 87483; 89051; 90471; 90656; 93005; 93970; 97110; 97162; 97530; 99212; 99285; J1100; J1650; J2003; J7120

== ENCOUNTER → 2025-03-19 07:58 | Outpatient (BNV) | payer MEDICARE, OTHER, MEDICAID, SELFPAY | PROVIDERS: Emergency Provider Emergency Medicine; PCP Internal Medicine; Visit Provider Radiology Diagnostic Radiology | DX: S39.91XA Unspecified injury of abdomen, initial encounter (principal); M16.12 Unilateral primary osteoarthritis, left hip; M47.815 Spondylosis without myelopathy or radiculopathy, thoracolumbar region; S29.9XXA Unspecified injury of thorax, initial encounter; M47.812 Spondylosis without myelopathy or radiculopathy, cervical region; R29.6 Repeated falls; S09.90XA Unspecified injury of head, initial encounter; Z04.3 Encounter for examination and observation following other accident; R60.0 Localized edema; R06.02 Shortness of breath | CPT/HCPCS: 70450; 71045; 71250; 72125; 93970 ==

== ENCOUNTER → 2025-03-19 07:58 | Outpatient (BNV) | payer MEDICARE, OTHER, MEDICAID, SELFPAY | PROVIDERS: Admitting Provider Physician Assistant Medical; Emergency Provider Emergency Medicine; PCP Internal Medicine; Visit Provider Internal Medicine | DX: R53.1 Weakness (principal) | CPT/HCPCS: 93010 ==

== ENCOUNTER → 2025-03-19 14:06 | Outpatient (BNV) | payer MEDICARE, OTHER, MEDICAID, SELFPAY | PROVIDERS: Admitting Provider Physician Assistant Medical; Emergency Provider Emergency Medicine; PCP Internal Medicine; Visit Provider Psychiatry & Neurology Neurology | DX: M48.061 Spinal stenosis, lumbar region without neurogenic claudication (principal); G30.1 Alzheimer's disease with late onset; F02.B3 Dementia in other diseases classified elsewhere, moderate, with mood disturbance; R26.89 Other abnormalities of gait and mobility | CPT/HCPCS: 99223 ==

== ENCOUNTER → 2025-03-19 14:06 | Outpatient (BNV) | payer MEDICARE, OTHER, MEDICAID, SELFPAY | PROVIDERS: Admitting Provider Physician Assistant Medical; Emergency Provider Emergency Medicine; PCP Internal Medicine; Visit Provider Physician Assistant Medical | DX: R29.898 Other symptoms and signs involving the musculoskeletal system (principal); N17.9 Acute kidney failure, unspecified | CPT/HCPCS: 99223; 99233 ==

== ENCOUNTER 2025-03-31 09:16 | Outpatient (AMB) | payer MEDICARE, OTHER, MEDICAID, SELFPAY ==
[2025-03-31 09:21] VITALS: BP 112/58; PULSE 86; O2SAT 99; BMI 20.7
--- NOTE | 2025-03-31 09:21 | A.OFFPC_ITS ---
Vital Signs 03/31/25 09:21 Height 6 ft Weight 153 lb BMI 20.7 BP 112/58 L Blood Pressure Location Lt brachial Position Sitting Pulse 86 Pulse Source Pulse Oximeter Pulse Oximetry (%) 99 Oxygen Delivery Method [facility] Allergies meloxicam Allergy (Unknown, Verified 03/31/25 09:21) Unknown simvastatin Allergy (Unknown, Verified 03/31/25 09:21) Unknown Medication List - Last Reconciled 03/31/25 by Radha Barrios MD acetaminophen 325 mg PO QID PRN amlodipine 10 mg PO DAILY atorvastatin 20 mg PO DAILY blood-glucose sensor (Dexcom G6 Sensor device) As directed blood-glucose transmitter (Dexcom G6 Transmitter device) As directed cholecalciferol (vitamin D3) 25 mcg PO DAILY gabapentin 100 mg PO BEDTIME hydrochlorothiazide 12.5 mg PO DAILY insulin degludec (Tresiba FlexTouch U-100 insulin) 15 units subcut DAILY insulin lispro (Admelog SoloStar U-100 Insulin lispro) 1 sliding scale dose See Protocol subcut QIDWMHS lisinopril 40 mg PO DAILY naproxen 500 mg PO BID PRN omeprazole 20 mg PO DAILY pen needle, diabetic As directed sennosides-docusate sodium 8.6-50 mg (Senna Plus) 2 tab-caps (2 x 8.6-50 mg) PO BEDTIME sertraline 25 mg PO DAILY tadalafil 10 mg PO Q OTHER DAY PRN walker As directed Tobacco use date assessed: 03/16/25 Fall risk assessment: No Falls in past year Last assessed Fall Risk: 03/31/25 Dental Screening Dental Screen Date: 03/16/25 HPI HPI Comments History of Present Illness Details History of Present Illness The patient is an 79 year old individual presenting for a follow-up visit. The patient has a past medical history of diabetes mellitus, hypertension, hypercholesterolemia, GERD, polymyalgia rheumatica, lumbar canal stenosis, avascular necrosis of the left femoral head, and dementia. The patient was last seen on March 16, 2025, and subsequently went to the emergency department on March 19, 2025, with complaints of right leg cramps. The patient has a history of chronic back and leg pain, lower extremity weakness, and falls, and was hospitalized on March 19 for lower extremity weakness and an acute kidney injury. For the leg weakness and falls, the patient was seen at a spine clinic and was taking tramadol and Advil. An MRI revealed moderate to severe stenosis at L4-L5, and a nerve conduction test was advised for possible decompression. A short course of steroids was recommended, a repeat MRI showed no change, and neurology recommended sertraline. The patient was advised to undergo short-term rehabilitation and was sent to rehab. For type 1 diabetes mellitus, the patient follows with endocrinology and uses a continuous glucose monitor. The patient is on Admelog and Tresiba 15 units, with advice to decrease Tresiba to 13 units while adjusting Admelog. The last hemoglobin A1c was 8.2%. Recent lab work from March 22 showed anemia with a hemoglobin of 10.1 and hematocrit of 30.6. A lipid panel on March 08 showed an LDL of 55 and triglycerides of 64. Health Maintenance - Cholesterol management: The patient is on atorvastatin with an LDL goal of less than 100 and a triglyceride goal of less than 150. Social History Results - MRI: Showed moderate to severe stenosi s on L4-L5 with no change on a jim bsequent MRI. - Labs (March 22): Hemoglobin 10.1, H ematocrit 30.6. - Labs (March 08): LDL 55, Triglyceri lynette 64. - Labs (December 2023): LDL 90. - Labs: Last hemoglobin A1c was 8.2%. [facility] Medical History Left leg weakness Osteopenia Erectile dysfunction Type 2 diabetes mellitus with hyperglycemia Polymyalgia rheumatica Thrombocytopenia Hypercholesterolemia GERD (gastroesophageal reflux disease) Carpal tunnel syndrome Diabetic neuropathy Hypertension Surgical History History of carpal tunnel release Family History Father Hypertension CVD (cardiovascular disease) Mother Cancer Social History Household Members: Spouse Housing: House Do you presently have visiting nurse or other home services: No Alcohol intake: current Alcohol intake frequency: 0-2 drinks per day Alcohol type: hard liquor Patient Tobacco Use Status: Former Tobacco user Tobacco use type: Cigarette Years Smoked: quit 2005 e-Cigarette/Vaping Use: Never Used Second Hand Smoke Exposure: Yes service: No Current occupational status: retired Cognitive needs: No Hearing needs: No Vision needs: Yes (Glasses) Questionnaire Thrive Questionnaire Date Thrive assessed: 11/13/24 I am a: Patient What is your living situation today?: I have a steady place to live Within the past 12 months, did the food you bought not last and you didn't have the money to get more?: Never true Within the past 12 months, did you worry whether your food would run out before you got money to buy more?: Never true Do you have trouble paying for medicines?: No Do you have trouble getting transportation to medical appointments?: No Do you have trouble paying your heating and electricity bill?: No Do you have trouble taking care of your child, family member or friend?: No Do you have trouble with day-to-day activities such as bathing, preparing meals, shopping, managing finances, etc.?: No Are you currently unemployed and looking for a job?: No Are you interested in more education?: No Please select the resources that you would like help with: None Currently or been in a relationship where the following occur: No concerns reported THRIVE Score: 0 GWYN-7 AMB Questionnaire GWYN-7 Date GWYN - 7 assessed: 05/05/24 Source: Developed by Drs. Sunday Delgado, Marilyn Kennedy, Marco Caldwell and colleagues, with an educational wendie from [employer]. Review of Systems Narrative Review of Systems - Musculoskeletal: Reports right leg cramps and chronic back and leg pain. - Neurological: Reports lower extremity weakness and a history of falls. Physical exam (Primary Care) Vital Signs: Last Vital Signs Pulse 86 03/31/25 09:21 BP 112/58 L 03/31/25 09:21 Pulse Ox 99 03/31/25 09:21 Oxygen Delivery Method Room Air 03/31/25 09:21 BMI result Body Mass Index 20.7 Tobacco/Smoking Status: Tobacco use Status Tobacco use date assessed 03/16/25 03/31/25 09:23 Patient Tobacco Use Status Former Tobacco user 03/31/25 09:23 Tobacco use type Cigarette 03/31/25 09:23 e-Cigarette/Vaping Use Never Used 03/31/25 09:23 Thrive Assessment: Date of Thrive Assessment Date Thrive assessed 11/13/24 03/31/25 09:23 Currently or been in a relationship where the following occur: No concerns reported Narrative Physical Exam Const General: alert; No acute distress Eyes Conjunctivae: conjunctivae normal Resp Auscultation: clear to auscultation bilaterally Cardio Rate: regular rate Rhythm: regular rhythm GI Inspection: Yes normal to inspection Extrem General: Yes normal to inspection and No edema Coding Level of Care Code Complex visit Add On G2211 Diagnoses Type 2 diabetes mellitus with hyperglycemia, with long-term current use of insulin E11.65; Z79.4 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 [place] Code(s): E11.65 - Type 2 diabetes mellitus with hyperglycemia Category: Medical Qualifiers: Diabetes mellitus correction insulin use: with correction use Qualified Code(s): E11.65 - Type 2 diabetes mellitus with hyperglycemia; Z79.4 - alf (current) use of insulin Plan: Decrease the amount of carbohydrate intake, pasta, bread, rice and potatoes are all sugar and that is aside from all the sweet stuff, remember that fruits are good but they are Sweet also. Patient is being seen by endocrinology adjusting Tregayla and Admelog. Patient is on the continuous glucose monitor for adjustment of the insulin (2) Hypertension: Code(s): I10 - Essential (primary) hypertension Category: Medical Qualifiers: Hypertension type: essential hypertension Qualified Code(s): I10 - Essential (primary) hypertension Plan: Continue with blood pressure medication. Decrease salt intake and exercise on hydrochlorothiazide 12.5 mg once a day amlodipine 10 mg once a day and lisinopril 40 mg once a day (3) Hypercholesterolemia: Code(s): E78.00 - Pure hypercholesterolemia, unspecified Category: Medical Plan: Avoid fried foods, chicken skin, eggs, butter margarine, pastries and meat. Be it pork or beef they have a lot of cholesterol LDL goal of less than 100 and triglyceride of less than 150 on atorvastatin last blood work was in February 2025 LDL 55 (4) GERD (gastroesophageal reflux disease): Code(s): K21.9 - Gastro-esophageal reflux disease without esophagitis Category: Medical Qualifiers: Esophagitis presence: without esophagitis Qualified Code(s): K21.9 - Gastro-esophageal reflux disease without esophagitis Plan: Avoid the foods that causes that usually spicy foods, tomato products, juices, coffee, soda and foods that your sensitive to. After eating do not lie down, allow 3-4 hours before in lie down. And keep the head of bed above 30 degrees to avoid the acid from going up. (5) Polymyalgia rheumatica: Comment: 10/2010 Code(s): M35.3 - Polymyalgia rheumatica Category: Medical Plan: Stable (6) Lumbar spinal stenosis: Code(s): M48.061 - Spinal stenosis, lumbar region without neurogenic claudication Category: Medical Qualifiers: Neurogenic claudication status: without neurogenic claudication Qu alified Code(s): M48.061 - Spinal stenosis, lumbar region without neurogenic claudication Plan: Patient has been sent to rehab while awaiting nerve conduction test Plan Plan Patient was informed and verbally consented to the use of an ambient scribe for clinic note documentation during this visit. 1. Diabetes Mellitus The patient is being seen by endocrinology for diabetes management. The plan includes adjusting Tresiba and Admelog based on readings from the continuous glucose monitor. 2. Hypertension The plan is to continue the current regimen of hydrochlorothiazide 12.5 mg once a day, amlodipine 10 mg once a day, and lisinopril 40 mg once a day. 3. Hypercholesterolemia The plan is to continue atorvastatin to maintain an LDL goal of less than 100 and triglycerides less than 150. The last blood work in February 2025 showed an LDL of 55. 4. Gastroesophageal Reflux Disease The patient remains on current medication for reflux, and the condition is stable. 5. Lumbar Stenosis The patient has been sent to rehabilitation while awaiting a nerve conduction test. Discussion Notes I discussed the ongoing management of the patient's multiple chronic conditions. We will continue co-management of diabetes with endocrinology, adjusting insulin based on continuous glucose monitor readings. The patient's blood pressure will continue to be managed with hydrochlorothiazide, amlodipine, and lisinopril. Cholesterol is well-controlled on atorvastatin, with an LDL of 55 meeting the goal of less than 100, so we will continue this treatment. For the chronic back and leg pain due to lumbar stenosis, I noted that the patient has been sent to rehab while awaiting a nerve conduction test. 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
--- OUTSIDE RECORDS SUMMARY | 2025-03-31 10:02 | XMS_ITS | Encounter Summary ---
Author Organization [facility] Address [address] [facility] [address] [place] [address] Phone Care Team Providers Care Tobacco Cutter Name Role Phone Radha Barrios MD Unavailable [phone] Chela Hernandez MD Unavailable [phone] Nae Leiva MD Unavailable [phone] Radha Barrios MD Primary Care Provider [phone] Reason for Referral * MRI/CAT Scan - Closed Specialty Diagnoses / Procedures Referred By Contac t Referred To Contact Radiology Diagnoses Left hip pain Procedures MRI Hip (Left) Sirena Armas MD Phone: tel: fax: Referral ID Status Reason Start Date Expiration Date Visits Re quested Visits Authorized [id number] Closed 01/25/2021 01/25/2022 1 1 Encounter Details Date Type Department Care Team (Latest Contact Info) Description 01/25/2021 Transcribe Orders Virtual Department [address] [place] [address] Sirena Armas MD [address] [place] [phone] Left hip pain (Primary Dx) Social History [...] thigh documented in this encounter Care Teams Tobacco Cutter Relationship Specialty Start Date End Date Radha Barrios MD [address] [place] [phone] PCP - General Internal Medicine 02/22/17 Radha Barrios MD [address] [place] [phone] Historical LMR Provider 02/16/17 2 Chela Hernandez MD [address] [place] [address] Orthopedics & Sports Medicine, [place] [address] Historical LMR Provider 02/16/17 Nae Lieva MD [address] [facility] Medicine, [place] [address] juan Historical LMR Provider 02/16/17 05/06/21 documented as of this encounter Additional Source Comments The information contained in this document represents components of the legal health record. It is not the complete legal health record.[facility]
--- OUTSIDE RECORDS SUMMARY | 2025-03-31 10:02 | XMS_ITS | Clinical Summary ---
Author Organization [facility] Address [address] [phone] Phone Care Team Providers Care Account Services Representative Name Role Phone Radha Barrios MD Primary Care Provider [phone] Allergies Active Allergy Reactions Criticality Noted Date Comments Sbnrqzq-Mnx-Gqd Reductase Inhibitors Diarrhea 02/25/2017 Pt not sure [...] file Insurance MEDICARE PART A & [facility]PP[facility] [place] MED[place] PART A & B [facility] MEDICARE [facility]PPLEMENT [facility] MEDICARE PART A & B [facility] MEDIC[facility] SUPPLEMENT [facility] MEDICARE PART A & B [id number] EXTENSION MEDICARE [place]PPLE[place] [id number] MEDICARE PART A & B [facility] [employer] [facility] EXTENSION MEDICARE SUPPLEMENT [facility] MEDICARE PART A & B [facility] MEDICARE SUPP[place] MEDICARE PART A & B [facility] MEDICARE [facility] MEDICARE SUPPLEMENT [facility] Advance Directives For more information, please contact: [phone] (9AM - 5PM [facility], Saturday-Saturday) * Full Code (Presumed) (Latest Code Status on File) Date Activated Date Inactivated Comments 05/29/2017 7:32 AM 05/29/2017 12:15 PM * Full Code (Presumed) Date Activated Date Inactivated Comments 04/03/2017 6:51 AM 04/03/2017 11:58 AM Care Teams Account Services Representative Relationship Specialty Start Date End Date Radha Barrios MD [address] [place] [phone] PCP - General Internal Medicine 02/22/17 Additional Source Comments The information contained in this document represents components of the legal health record. It is not the complete legal health record.[facility]
--- OUTSIDE RECORDS SUMMARY | 2025-03-31 10:02 | XMS_ITS | Encounter Summary ---
Author Organization [facility] Address [address] [facility] [address] [place] [address] Phone Care Team Providers Care Corporate Accountant Name Role Phone Radha Barrios MD Unavailable [phone] Chela Hernandez MD Unavailable [phone] Nae Leiva MD Unavailable [phone] Radha Barrios MD Primary Care Provider [phone] Encounter Details Date Type Department Care Team (Late st Contact Info) Description 05/29/2017 Procedure Pass OR Admitting Dept - Virtual Department [address] [place] [address] Social History Tobacco Use Types Packs/Day Years [...] on filedocumented in this encounter Care Teams Corporate Accountant Relationship Specialty Start Date End Date Radha Barrios MD [address] [place] [phone] PCP - General Internal Medicine 02/22/17 Radha Barrios MD [address] [place] [phone] Historical LMR Provider 02/16/17 2 Chela Hernandez MD [address] [facility], [facility] [place] [address] [email or web address] Historical LMR Provider 02/16/17 Nae Leiva MD [address] [facility] Sports [facility], [facility]. [place], [place] [phone] juan Historical LMR Provider 02/16/17 05/06/21 documented as of this encounter Additional Source Comments The information contained in this document represents components of the legal health record. It is not the complete legal health record.[facility]
--- OUTSIDE RECORDS SUMMARY | 2025-03-31 10:02 | XMS_ITS | Encounter Summary ---
Author Organization [facility] Address [address] [facility] [address] [place] [address] Phone Care Team Providers Care Family Resource Management Specialist Name Role Phone Radha Barrios MD Unavailable [phone] Chela Hernandez MD Unavailable [phone] Nae Leiva MD Unavailable [phone] Radha Barrios MD Primary Care Provider [phone] Encounter Details Date Type Department Care Team (Late st Contact Info) Description 03/12/2017 Prep for Surgery [facility] Orthopedics & Sports Medicine [address] [place] [phone] Nae Leiva MD [address] [place] [address] Orthopedics & Sports Medicine, [place] [address] juan [email or web address] Social History Tobacco Use [...] on filedocumented in this encounter Care Teams Family Resource Management Specialist Relationship Specialty Start Date End Date Radha Barrios MD [address] [place] [phone] PCP - General Internal Medicine 02/22/17 Radha Barrios MD [address] [place] [phone] Historical LMR Provider 02/16/17 2 Chela Hernandez MD [address] [place] [address] Orthopedics & Sports Medicine, [place] [address] Historical LMR Provider 02/16/17 Nae Leiva MD [address] [facility], [facility] [place], [place] [phone] juan Historical LMR Provider 02/16/17 05/06/21 documented as of this encounter Additional Source Comments The information contained in this document represents components of the legal health record. It is not the complete legal health record.[facility]
--- OUTSIDE RECORDS SUMMARY | 2025-03-31 10:02 | XMS_ITS | Encounter Summary ---
Author Organization [facility] Address [address] [facility] [address] [place] [address] Phone Care Team Providers Care Ordnance Mechanic Name Role Phone Radha Barrios MD Unavailable [phone] Chela Hernandez MD Unavailable [phone] Nae Leiva MD Unavailable [phone] Radha Barrios MD Primary Care Provider [phone] Encounter Details Date Type Department Care Team (Late st Contact Info) Description 05/28/2017 Prep for Surgery [facility] Orthopedics & Sports Medicine [address] [place] [address] Nae Leiva MD [address] [place] [address] Orthopedics & Sports Medicine, [place] [address] juan [email or web address] Social History Tobacco Use Types Packs/Day Years [...] on filedocumented in this encounter Care Teams Ordnance Mechanic Relationship Specialty Start Date End Date Radha Barrios MD [address] [place] [phone] PCP - General Internal Medicine 02/22/17 Radha Barrios MD [address] [place] [phone] Historical LMR Provider 02/16/17 2 Chela Hernandez MD 4 [facility] Orthopedics & Sports Medicine, [facility] [place], [place] [phone] Historical LMR Provider 02/16/17 Nae Leiva MD [address] [facility] Orthoped[facility] Sports [facility], [place], [place] [phone] juan Historical LMR Provider 02/16/17 05/06/21 documented as of this encounter Additional Source Comments The information contained in this document represents components of the legal health record. It is not the complete legal health record.[facility]
--- OUTSIDE RECORDS SUMMARY | 2025-03-31 10:02 | XMS_ITS | Encounter Summary ---
Author Organization [facility] Address [address] [place] [address] Care Team Providers Care Traffic Signal Mechanic Name Role Phone Alycia Hubbard MD Primary Care Provider Encounter Details Date Type Department Care Team (Late st Contact Info) Description 03/26/2025 Lab Requisition [facility] - Main Lab [address] [place] [address] Alycia Hubbard MD [address] [place], [place] [id number] Essential (primary) hypertension; Type 2 diabetes mellitus without complications (CMS/HCC V24, CMS/HCC V28); Vitamin D deficiency, unspecified Social History Tobacco Use Types Packs/Day Years Used Date Smoking Tobacco: Never Assessed Sex and Gender Information Value Date Recorded Sex Assigned at Not on file Legal Sex Male 8:45 AM EST Gender Identity Not on file Sexual Orientation Not on file documented as of this encounter Plan of Treatment Not on file documented as of this encounter Procedures Procedure Name Priority Date/Time Associated Diagnosis Comments VITAMIN D 25 HYDROXY Routine 03/26/2025 5:16 AM EST Essential (primary) hypertension Type 2 diabetes mellitus without complications (CMS/HCC V24, CMS/HCC V28) Vitamin D deficiency, unspecified COMPLETE BLOOD COUNT Routine 03/26/2025 5:16 AM EST Essential (primary) hypertension Type 2 diabetes mellitus without complications (CMS/HCC V24, CMS/HCC V28) Vitamin D deficiency, unspecified HEMOGLOBIN A1C Routine 03/26/2025 5:16 AM EST Essential (primary) hypertension Type 2 diabetes mellitus without complications (CMS/HCC V24, CMS/HCC V28) Vitamin D deficiency, unspecified BASIC METABOLIC PANEL Routine 03/26/2025 5:16 AM EST Essential (primary) hypertension Type 2 diabetes mellitus without complications (CMS/HCC V24, CMS/HCC V28) Vitamin D deficiency, unspecified documented in this encounter Results * Vitamin D 25 hydroxy (03/26/2025 5:16 AM EST) Vit D, 25-Hydroxy 38.2 30.0 - 80.0 ng/mL 03/26/2025 9:54 AM EST [facility] Blood Venous blood specimen / Unknown Venipuncture / Unknown 03/26/2025 5:16 AM EST 03/26/2025 8:52 AM EST us Alycia Hubbard MD LAB BLOOD ORDERABLES Final Resul t Performing Organization Address City/[facility]/ZIP Co de Phone Number [facility] [address] [place] [address], [place] [phone] * (ABNORMAL) Hemoglobin A1c (03/26/2025 5:16 AM EST) Hemoglobin A1C 8.9(H) <6.5 % LAB CHEMISTRY METHOD 03/26/2025 11:03 AM EST [facility] Mean Bld Glu Estim. 209 mg/dL LAB CHEMISTRY METHOD 03/26/2025 11:03 AM EST [facility] Blood Venous blood specimen / Unknown Venipuncture / Unknown 03/26/2025 5:16 AM EST 03/26/2025 8:52 AM EST us Alycia Hubbard MD LAB BLOOD ORDERABLES Final Resul t [facility] [address] [place] [address], [place] [phone] * (ABNORMAL) Basic metabolic panel (03/26/2025 5:16 AM EST) Pathologist [facility] Sodium 140 133 - 145 mmol/L 03/26/2025 9:50 AM [facility] Potassium 3.5 3.5 - 5.5 mmol/L 03/26/2025 9:50 AM [facility] Chloride 102 96 - 110 mmol/L 03/26/2025 9:50 AM [facility] CO2 30 21 - 32 mmol/L 03/26/2025 9:50 AM [facility] Anion Gap 8 3 - 11 03/26/2025 9:50 AM [facility] Glucose 225(H) 70 - 100 mg/dL 03/26/2025 9:50 AM [facility] BUN 31(H) 5 - 25 mg/dL 03/26/2025 9:50 AM [facility] Creatinine 1.21 0.70 - 1.30 mg/dL 03/26/2025 9:50 AM [facility] eGFR 61 >=60 mL/min/1. 73m2 03/26/2025 9:50 AM [facility] Comment:Calculation based on the Chronic Kidney Disease Epidemiology Collaboration (CKD-EPI) equation refit without adjustment for race. BUN/Creatinine Ratio 25.6 03/26/2025 9:50 AM [facility] Calcium 8.9 8.5 - 10.5 mg/dL 03/26/2025 9:50 AM [facility] Blood Venous blood specimen / Unknown Venipuncture / Unknown 03/26/2025 5:16 AM EST 03/26/2025 8:52 AM EST us Alycia Hubbard MD LAB BLOOD ORDERABLES Final Resul t [facility] [address] [place] [address], * (ABNORMAL) Complete blood count (03/26/2025 5:16 AM EST) [facility] WBC 8.5 4.8 - 10.8 K/mcL LAB HEMETOLOGY METHOD 03/26/2025 9:33 AM [facility] RBC 3.20(L) 4.50 - 5.50 M/mcL LAB HEMETOLOGY METHOD 03/26/2025 9:33 AM [facility] Hemoglobin 9.5(L) 13.5 - 17.5 g/dL LAB HEMETOLOGY METHOD 03/26/2025 9:33 AM [facility] Hematocrit 28.9(L) 42.0 - 54.0 % LAB HEMETOLOGY METHOD 03/26/2025 9:33 AM [facility] MCV 90.0 79.0 - 98.0 FL LAB HEMETOLOGY METHOD 03/26/2025 9:33 AM [facility] MCH 29.6 27.0 - 32.0 pcg LAB HEMETOLOGY METHOD 03/26/2025 9:33 AM [facility] MCHC 32.9 32.0 - 37.0 g/dL LAB HEMETOLOGY METHOD 03/26/2025 9:33 AM [facility] RDW 12.9 11.0 - 15.0 % LAB HEMETOLOGY METHOD 03/26/2025 9:33 AM [facility] Platelets 209 130 - 400 K/mcL LAB HEMETOLOGY METHOD 03/26/2025 9:33 AM [facility] MPV 10.4 7.0 - 11.0 FL LAB HEMETOLOGY METHOD 03/26/2025 9:33 AM [facility] NRBC 0.0 <1.0 % LAB HEMETOLOGY METHOD 03/26/2025 9:33 AM [facility] NRBC Absolute 0.00 <0.10 K/mcL LAB HEMETOLOGY METHOD 03/26/2025 9:33 AM EST [facility] Blood Venous blood specimen / Unknown Venipuncture / Unknown 03/26/2025 5:16 AM EST 03/26/2025 8:52 AM EST Alycia Hubbard MD LAB BLOOD ORDERABLES Final Resul t [facility] [address] [place] [address], documented in this encounter Visit Diagnoses Diagnosis Essential (primary) hypertension Unspecified essential hypertension Type 2 diabetes mellitus without complications (CMS/HCC V24, CMS/HCC V28) Vitamin D deficiency, unspecified documented in this encounter Care Teams Traffic Signal Mechanic Relationship Specialty Start Date End Date Alycia Hubbard MD [address] [place] [address] PCP - General Geriatric Medicine 03/26/25 documented as of this encounter
--- OUTSIDE RECORDS SUMMARY | 2025-03-31 10:02 | XMS_ITS | Clinical Summary ---
Author Organization [address] [facility] Address [address] [place] [address] Phone Care Team Providers Care Show Girl Name Role Phone Alycia Hubbard MD Primary Care Provider [phone] Encounters Date Type Department Care Team Description 03/26/2025 Lab Requisition [facility] - Main Lab [address] [place] [address] Alycia Hubbard MD Essential (primary) hypertension; Type 2 diabetes mellitus without complications (CMS/HCC V24, CMS/HCC V28); Vitamin D deficiency, unspecified from Last 3 Months Social History Tobacco Use Types Packs/Day Years Used Date Smoking Tobacco: Never Assessed Sex and Gender Information Value Date Recorded Sex Assigned at Not on file Legal Sex Male 8:45 AM EST Gender Identity Not on file Sexual Orientation Not on file Plan of Treatment Health Maintenance Due Date Last Done Comments Diabetes: Annual Foot Exam 1955 Diabetes: Annual Retina Eye Exam 1955 DTaP,Tdap,and Td Vaccines (1 - Tdap) 09/03/1963 Pneumococcal Vaccine: 50+ Ye ars (1 of 2 - PCV) 09/03/1963 Zoster Vaccines (1 of 2) 1994 RSV Immunization Adult Patie nts (1 - 1-dose 75+ series) 09/03/2019 Depression Screening 04/29/2024 COVID-19 Vaccine (1 - 2024-2 6 season) 2024 Influenza Vaccine (#1) 2024 Cholesterol Screening (Lipid Panel) 03/26/2025 Diabetes: Annual Urine Albumin-Creatinine Ratio (uACR) 03/26/2025 Falls Risk Assessment 03/26/2025 Medicare Annual Wellness Visit 03/26/2025 Social Influencers of Health Screening 03/26/2025 Diabetes: Blood Sugar Contro l Test (HGBA1C) 09/23/2025 03/26/2025 Diabetes: Annual GFR (Glomer ular Filtration Rate) 03/26/2026 03/26/2025 Hypertension/CHF/CAD Annual BMP Blood Test 03/26/2026 03/26/2025 HIB Vaccines Aged Out No longer eligi ble based on patient's age to complete this topic HPV Vaccines Aged Out No longer eligi ble based on patient's age to complete this topic Hepatitis A Vaccines Aged Out No long er eligible based on patient's age to complete this topic Hepatitis B Vaccines Aged Out No long er eligible based on patient's age to complete this topic IPV Vaccines Aged Out No longer eligi ble based on patient's age to complete this topic MMR Vaccines Aged Out No longer eligi ble based on patient's age to complete this topic Meningococcal ACWY Vaccine Aged Out N o longer eligible based on patient's age to complete this topic Meningococcal B Vaccine Aged Out No l onger eligible based on patient's age to complete this topic RSV Immunization Patients Un meri 20 months Aged Out No longer eligible b ased on patient's age to complete this topic Varicella Vaccines Aged Out No longer eligible based on patient's age to complete this topic Procedures Procedure Name Priority Date/Time Associated Diagnosis Comments VITAMIN D 25 HYDROXY Routine 03/26/2025 5:16 AM EST Essential (primary) hypertension Type 2 diabetes mellitus without complications (CMS/HCC V24, CMS/[facility] V28) Vitamin D deficiency, unspecified HEMOGLOBIN A1C [...] V24, CMS/HCC V28) Vitamin D deficiency, unspecified from Last 3 Months Results * Vitamin D 25 hydroxy (03/26/2025 5:16 AM EST) Vit D, 25-Hydroxy 38.2 30.0 - 80.0 ng/mL 03/26/2025 9:54 AM [facility] Blood Venous blood specimen / Unknown Venipuncture / Unknown 03/26/2025 5:16 AM EST 03/26/2025 8:52 AM EST Alycia Hubbard MD LAB BLOOD ORDERABLES Final Resul t [facility] [address] [place] [address], * (ABNORMAL) Complete blood count (03/26/2025 5:16 AM EST) Pathologist [facility] WBC 8.5 4.8 - 10.8 K/mcL LAB HEMETOLOGY METHOD 03/26/2025 9:33 AM [facility] RBC 3.20(L) 4.50 - 5.50 M/mcL LAB HEMETOLOGY METHOD 03/26/2025 9:33 AM [facility] Hemoglobin 9.5(L) 13.5 - 17.5 g/dL LAB HEMETOLOGY METHOD 03/26/2025 9:33 AM [facility] Hematocrit 28.9(L) 42.0 - 54.0 % LAB HEMETOLOGY METHOD 03/26/2025 9:33 AM [facility] MCV 90.0 79.0 - 98.0 FL LAB HEMETOLOGY METHOD 03/26/2025 9:33 AM [facility] MCH 29.6 27.0 - 32.0 pcg LAB HEMETOLOGY METHOD 03/26/2025 9:33 AM [facility] MCHC 32.9 32.0 - 37.0 g/dL LAB HEMETOLOGY METHOD 03/26/2025 9:33 AM EST [facility] RDW 12.9 11.0 - 15.0 % LAB HEMETOLOGY METHOD 03/26/2025 9:33 AM EST [facility] Platelets 209 130 - 400 K/mcL LAB HEMETOLOGY METHOD 03/26/2025 9:33 AM EST [facility] MPV 10.4 7.0 - 11.0 FL LAB HEMETOLOGY METHOD 03/26/2025 9:33 AM EST [facility] NRBC 0.0 <1.0 % LAB HEMETOLOGY METHOD 03/26/2025 9:33 AM EST [facility] NRBC Absolute 0.00 <0.10 K/mcL LAB HEMETOLOGY METHOD 03/26/2025 9:33 AM [facility] Blood Venous blood specimen / Unknown Venipuncture / Unknown 03/26/2025 5:16 AM EST 03/26/2025 8:52 AM EST us Alycia Hubbard MD LAB BLOOD ORDERABLES Final Resul t Performing Organization Address City/State/[facility] Co de Phone Number [facility] [address] [place] [address], * (ABNORMAL) Hemoglobin A1c (03/26/2025 5:16 AM EST) Hemoglobin A1C 8.9(H) <6.5 % LAB CHEMISTRY METHOD 03/26/2025 11:03 AM EST [facility] Mean Bld Glu Estim. 209 mg/dL LAB CHEMISTRY METHOD 03/26/2025 11:03 AM EST [facility] Blood Venous blood specimen / Unknown Venipuncture / Unknown 03/26/2025 5:16 AM EST 03/26/2025 8:52 AM EST us Alycia Hubbard MD LAB BLOOD ORDERABLES Final Resul t [facility] [address] [place] [address], * (ABNORMAL) Basic metabolic panel (03/26/2025 5:16 AM EST) Sodium 140 133 - 145 mmol/L 03/26/2025 9:50 AM [facility] Potassium 3.5 3.5 - 5.5 mmol/L 03/26/2025 9:50 AM [facility] Chloride 102 96 - 110 mmol/L 03/26/2025 9:50 AM [facility] CO2 30 21 - 32 mmol/L 03/26/2025 9:50 AM [facility] Anion Gap 8 3 - 11 03/26/2025 9:50 AM [facility] Glucose 225(H) 70 - 100 mg/dL 03/26/2025 9:50 AM [facility] BUN 31(H) 5 - 25 mg/dL 03/26/2025 9:50 AM [facility] Creatinine 1.21 0.70 - 1.30 mg/dL 03/26/2025 9:50 AM [facility] eGFR 61 >=60 mL/min/1. 73m2 03/26/2025 9:50 AM [facility] Comment:Calculation based on the Chronic Kidney Disease Epidemiology Collaboration (CKD-EPI) equation refit without adjustment for race. BUN/Creatinine Ratio 25.6 03/26/2025 9:50 AM [facility] Calcium 8.9 8.5 - 10.5 mg/dL 03/26/2025 9:50 AM [facility] Blood Venous blood specimen / Unknown Venipuncture / Unknown 03/26/2025 5:16 AM EST 03/26/2025 8:52 AM EST us Alycia Hubbard MD LAB BLOOD ORDERABLES Final Resul t [facility] [address] [place] [address], from Last 3 Months Insurance MEDICARE Care Teams Show Girl Relationship Specialty Start Date End Date Alycia Hubbard MD [address] [place] [address] PCP - General Geriatric Medicine 03/26/25
--- OUTSIDE RECORDS SUMMARY | 2025-03-31 10:02 | XMS_ITS | Encounter Summary ---
Author Organization [facility] Address [address] [place] [address] Phone Care Team Providers Care Tailor Women'S Garment Alteration Name Role Phone Radha Barrios MD Unavailable [phone] Chela Hernandez MD Unavailable [phone] Nae Leiva MD Unavailable [phone] Radha Barrios MD Primary Care Provider [phone] Encounter Details Date Type Department Care Team (Late st Contact Info) Description 01/25/2021 Procedure Pass [facility], [address] [place] [address] Social History Tobacco Use Types Packs/Day Years [...] on filedocumented in this encounter Care Teams Tailor Women'S Garment Alteration Relationship Specialty Start Date End Date Radha Barrios MD [address] [place] [phone] PCP - General Internal Medicine 02/22/17 Radha Barrios MD [address] [place] [address] Historical LMR Provider 02/16/17 2 Chela Hernandez MD [address] [facility], [facility] [place], [place] [phone] [email or web address] Historical LMR Provider 02/16/17 Nae Leiva MD [address] [facility], [facility] [place], [place] [phone] juan Historical LMR Provider 02/16/17 05/06/21 documented as of this encounter Additional Source Comments The information contained in this document represents components of the legal health record. It is not the complete legal health record.[facility]
--- OUTSIDE RECORDS SUMMARY | 2025-03-31 10:02 | XMS_ITS | Encounter Summary ---
Author Organization [facility] Address [address] [place] [address] Phone Care Team Providers Care Survey Associate Name Role Phone Radha Barrios MD Unavailable [phone] Chela Hernandez MD Unavailable [phone] Nae Leiva MD Unavailable [phone] Radha Barrios MD Primary Care Provider [phone] Encounter Details Date Type Department Care Team (Late st Contact Info) Description 04/03/2017 Procedure Pass [place] Admitting Dept - Virtual Department [address] [place] [address] Social History Tobacco Use Types Packs/Day Years [...] on filedocumented in this encounter Care Teams Survey Associate Relationship Specialty Start Date End Date Radha Barrios MD [address] [place] [phone] PCP - General Internal Medicine 02/22/17 Radha Barrios MD [address] [place] [phone] Historical LMR Provider 02/16/17 2 Chela Hernandez MD 4 [facility], [facility] [place] [address] [email or web address] Historical LMR Provider 02/16/17 Nae Leiva MD 4 [facility], [facility] [place], [place] [phone] juan Historical LMR Provider 02/16/17 05/06/21 documented as of this encounter Additional Source Comments The information contained in this document represents components of the legal health record. It is not the complete legal health record.[facility]
== END 2025-03-31 10:30 | disposition home or self-care (01) ==
LOC: HO.HMCH 09:17
PROVIDERS: PCP Internal Medicine; Visit Provider Internal Medicine
DX: E11.65 Type 2 diabetes mellitus with hyperglycemia (principal); Z79.4 Long term (current) use of insulin; I10 Essential (primary) hypertension; E78.00 Pure hypercholesterolemia, unspecified; K21.9 Gastro-esophageal reflux disease without esophagitis; M35.3 Polymyalgia rheumatica; M48.061 Spinal stenosis, lumbar region without neurogenic claudication

== ENCOUNTER 2025-03-31 09:16 | Outpatient (REF) | payer MEDICARE, OTHER, MEDICAID, SELFPAY ==
[2025-03-31 11:49] LABS: Anion Gap 12 (12-20); Blood Urea Nitrogen 40 mg/dL (9-16); Calcium 10.5 mg/dL (8.4-10.2); Carbon Dioxide 28 mmol/L (22-29); Chloride 104 mmol/L (96-108); Estimated Glomerular Filt Rate 50; Potassium 4.2 mmol/L (3.3-5.1); Sodium 140 mmol/L (135-145)
--- OUTSIDE RECORDS SUMMARY | 2025-03-31 12:35 | XMS_ITS | Patient Health Record ---
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) Active confirmed Problem Abnormal feces (311878017) Positive colorectal cancer screening using Cologuard test (R19.5) Active confirmed Plan Of Treatment Future Test Test Name Order Date COLONOSCOPY 01/22/2019 Insurance Providers Payer Name Payer Address Payer Phone Subscriber Number Group Number Insured Name Patient Relationship to Insured Coverage Start Date Coverage End Date MEDICARE OF [place] [address] [place] [address] [id number] JONATAN SAWYER Self - patient is the insured FORMERLY [facility] [employer] [address] [place] [address] [id number] JONATAN SAWYER Self - patient is the insured Medical (General) History Medical History History ICD Code IDDM HTN Denies ID,CVA,Lung disease,renal disease IBS GERD---EGD 01/2008-small HH; normal duodenal biopsies, neg. for celiac disease Colonoscopy 01/2008-neg for colitis/poly ps PMR + Cologuard test 2018 Surgical History Surgery Date(Month/Year) Carpal tunnel release bilaterally
== END 2025-03-31 09:17 | disposition home or self-care (01) ==
LOC: HO.LAB 09:16
PROVIDERS: PCP Internal Medicine; Visit Provider Internal Medicine
DX: E11.65 Type 2 diabetes mellitus with hyperglycemia (principal); I10 Essential (primary) hypertension; E78.00 Pure hypercholesterolemia, unspecified; N28.9 Disorder of kidney and ureter, unspecified; K21.9 Gastro-esophageal reflux disease without esophagitis; M35.3 Polymyalgia rheumatica; M48.061 Spinal stenosis, lumbar region without neurogenic claudication; Z79.4 Long term (current) use of insulin
CPT/HCPCS: 36415; 80048; 99212